=== PATIENT | male | born 1940 | race Caucasian/White ===

== ENCOUNTER 2022-10-22 05:07 | Observation (INO) ==
--- NOTE | 2022-09-20 09:21 | PAT Medication Instructions ---
Medication Instructions Date of Service September 20, 2022 Home Medications Medication Instructions Recorded Wheeled Walker #1 ea 07/30/22 Wheeled Walker #1 ea 07/30/22 cholecalciferol (vitamin D3) 25 mcg (1,000 unit) capsule (Vitamin D3) 1,000 unit PO QAM cyanocobalamin (vitamin B-12) 1,000 mcg tablet (Vitamin B-12) 1,000 mcg PO QAM fluticasone propionate 50 mcg/actuation nasal spray,suspension (Flonase Allergy Relief) 1 spray intranasal DAILY PRN SINUS CONGESTION lisinopril 20 mg-hydrochlorothiazide 12.5 mg tablet 1 tab PO QAM esomeprazole magnesium 40 mg capsule,delayed release 40 mg PO QAM buspirone 5 mg tablet 5 mg PO BID finasteride 5 mg tablet 5 mg PO QAM albuterol sulfate 90 mcg/actuation aerosol inhaler 90 mcg inhalation QID PRN sob candesartan 16 mg tablet 16 mg PO QAM hydroxyzine HCl 50 mg tablet 25 mg PO DAILY PRN Anxiety ibuprofen 200 mg tablet 200 mg PO Q6H PRN Pain indomethacin 50 mg capsule 50 mg PO BID PRN Headache lorazepam 0.5 mg tablet 0.5 mg PO HS mirtazapine 7.5 mg tablet 15 mg PO HS omeprazole 20 mg tablet,delayed release 20 mg PO QAM propranolol 10 mg tablet 10 mg PO BID tamsulosin 0.4 mg capsule 0.4 mg PO QAM trazodone 50 mg tablet 50 mg PO HS ASK your surgeon for instructions ibuprofen 200 mg tablet 200 mg PO Q6H PRN Pain indomethacin 50 mg capsule 50 mg PO BID PRN Headache DO NOT take the morning of surgery cholecalciferol (vitamin D3) 25 mcg (1,000 unit) capsule (Vitamin D3) 1,000 unit PO QAM cyanocobalamin (vitamin B-12) 1,000 mcg tablet (Vitamin B-12) 1,000 mcg PO QAM lisinopril 20 mg-hydrochlorothiazide 12.5 mg tablet 1 tab PO QAM candesartan 16 mg tablet 16 mg PO QAM hydroxyzine HCl 50 mg tablet 25 mg PO DAILY PRN Anxiety Take morning of surgery With a small sip of water, OTHERWISE NOTHING TO EAT OR DRINK AFTER MIDNIGHT: fluticasone propionate 50 mcg/actuation nasal spray,suspension (Flonase Allergy Relief) 1 spray intranasal DAILY PRN SINUS CONGESTION (if needed) esomeprazole magnesium 40 mg capsule,delayed release 40 mg PO QAM buspirone 5 mg tablet 5 mg PO BID finasteride 5 mg tablet 5 mg PO QAM albuterol sulfate 90 mcg/actuation aerosol inhaler 90 mcg inhalation QID PRN sob (use if needed; please bring with you to hospital day of surgery if possible) omeprazole 20 mg tablet,delayed release 20 mg PO QAM propranolol 10 mg tablet 10 mg PO BID tamsulosin 0.4 mg capsule 0.4 mg PO QAM Take evening before surgery fluticasone propionate 50 mcg/actuation nasal spray,suspension (Flonase Allergy Relief) 1 spray intranasal DAILY PRN SINUS CONGESTION (if needed) buspirone 5 mg tablet 5 mg PO BID albuterol sulfate 90 mcg/actuation aerosol inhaler 90 mcg inhalation QID PRN sob (if needed) hydroxyzine HCl 50 mg tablet 25 mg PO DAILY PRN Anxiety(if needed) lorazepam 0.5 mg tablet 0.5 mg PO HS mirtazapine 7.5 mg tablet 15 mg PO HS propranolol 10 mg tablet 10 mg PO BID trazodone 50 mg tablet 50 mg PO HS Other Notes If you have any questions please call us at [phone] or [phone] or [phone] or [phone]
--- NOTE | 2022-09-24 11:35 | Anesthesiology Consultation ---
Date of Service September 24, 2022 Assessment & Plan (1) Encounter for pre-operative examination: - awaiting 10/09 PCP pre-op evaluation. PCP optimization form completed for PCP review ahead of appt regarding abnormal CXR and mild end expiration wheezing throughout lung varma. - Outpatient joint assessment: Patient is currently scheduled for inpatient pathway. If re-evaluated pending system levels during current pandemic/surgeon requests outpatient pathway, patient is not acceptable candidate for outpatient joint program from anesthesia standpoint. Chart Review Chart Review: Pending: Refer to Additional Notes / Consult section and Patient seen in Pre Admission Testing Teaching & Discussion Pre-Anesthesia Teaching/Discussion Notes: Instructed NPO after midnight before surgery, except medications with 15 cc of water. Medication instructions provided according to the PAT guidelines. History Surgery Operation Date: 10/22/22 07:00 Proposed Procedures p Left Total Knee Arthroplasty - Pako Patterson MD Height/Weight Height: 5 ft 10 in Weight: 104.326 kg Allergies Allergy/AdvReac Type Severity Reaction Status Date / Time onabotulinumtoxinA Allergy Severe trouble Verified 09/18/22 13:26 [From Botox] swallowing/ headache azelastine Allergy Intermediate panic Verified 09/18/22 13:26 attack/ depression Medications Home Medications Medication Instructions Recorded Confirmed Last Taken cholecalciferol (vitamin D3) 25 1,000 unit PO QAM 05/12/18 09/18/22 06/25/22 18:00 mcg (1,000 unit) capsule (Vitamin D3) cyanocobalamin (vitamin B-12) 1,000 mcg PO QAM 05/12/18 09/18/22 06/25/22 18:00 1,000 mcg tablet (Vitamin B-12) fluticasone propionate 50 1 spray intranasal DAILY PRN SINUS 05/12/18 09/18/22 06/19/22 12:00 mcg/actuation nasal CONGESTION spray,suspension (Flonase Allergy Relief) lisinopril 20 1 tab PO QAM 05/12/18 09/18/22 06/25/22 06:00 mg-hydrochlorothiazide 12.5 mg tablet esomeprazole magnesium 40 mg 40 mg PO QAM 03/23/19 09/18/22 06/25/22 06:00 capsule,delayed release buspirone 5 mg tablet 5 mg PO BID 06/21/22 09/18/22 06/26/22 06:00 finasteride 5 mg tablet 5 mg PO QAM 06/21/22 09/18/22 06/25/22 06:00 Wheeled Walker #1 ea 07/30/22 07/30/22 Unknown Wheeled Walker #1 ea 07/30/22 07/30/22 Unknown albuterol sulfate 90 mcg/actuation 90 mcg inhalation QID PRN sob 09/18/22 09/18/22 Unknown aerosol inhaler candesartan 16 mg tablet 16 mg PO QAM 09/18/22 09/18/22 Unknown hydroxyzine HCl 50 mg tablet 25 mg PO DAILY PRN Anxiety 09/18/22 09/18/22 Unknown ibuprofen 200 mg tablet 200 mg PO Q6H PRN Pain 09/18/22 09/18/22 Unknown indomethacin 50 mg capsule 50 mg PO TID PRN Headache 09/18/22 09/24/22 Unknown lorazepam 0.5 mg tablet 0.5 mg PO HS 09/18/22 09/18/22 Unknown mirtazapine 7.5 mg tablet 15 mg PO HS 09/18/22 09/18/22 Unknown omeprazole 20 mg tablet,delayed 20 mg PO QAM 09/18/22 09/18/22 Unknown release propranolol 10 mg tablet 10 mg PO BID 09/18/22 09/18/22 Unknown tamsulosin 0.4 mg capsule 0.4 mg PO QAM 09/18/22 09/18/22 Unknown trazodone 50 mg tablet 50 mg PO HS 09/18/22 09/18/22 Unknown Past Medical History Medical History (Updated 09/24/22 @ 11:43 by Mary Lou Banks PA-C) Anxiety Asthma controlled, stable; last rescue inhaler use 2 days ago Attention deficit disorder (ADD) Barretts esophagus Follows with [facility] BPH (benign prostatic hyperplasia) Cervical stenosis of spinal canal Chronic neck pain Chronic tension type headache Dysphagia denies choking GERD (gastroesophageal reflux disease) controlled, stable per pt Hearing deficit hearing aids bilat Hepatic steatosis History of COVID-19 05/2021- NO SYMPTOMS History of kidney stones Hypertension controlled, stable per pt Lumbar spinal stenosis Migraine No longer on Botox treatment secondary to reaction Prediabetes Tinnitus Patient denies h/o stroke, seizures, heart attack, heart failure, blood clots or blood transfusions. Exercise / Class Metabolic Activity II 4-5 Yardwork/Stairs/Walk up hill (denies chest discomfort or shortness of breath with 1 FOS) Past Family History Family History Father Cancer Family hx of colon cancer Mother Cancer Sister Rheumatic fever with cardiac involvement Family history of diabetes mellitus Son Family hx of colon cancer Other No family history of adverse response to anesthesia Past Surgical History Surgical History H/O arthroscopy of shoulder RIGHT WITH BONE SPUR REMOVAL History of carpal tunnel release RIGHT History of colonoscopy with polypectomy History of cystoscopy History of esophagogastroduodenoscopy (EGD) History of lithotripsy S/P left knee arthroscopy S/P right knee arthroscopy Past Anesthesia History No Hx of Anesthesia Complications and No Family Hx of Anesthesia Complications History of PONV No Hx of PONV and No Hx of Motion Sickness Social History Smoking Status: Former smoker tobacco type: cigarettes Do You Dip or Chew Tobacco: No Smoking End Date: quit 1983 Hx Alcohol Use: Yes Alcohol type: beer alcohol intake frequency: a few times a month Hx Substance Use: No substance use type: does not use Review of Systems Occasional wheezing, chronic without change or worsening, resolves with albuterol inhaler. Patient denies chest pain, shortness of breath, dyspnea on exertion, fever, chills, cough or palpitations. Physical Exam Vital Signs Vitals BP 158/83 P 58 TEMP 97.4 SP02 96% on RA RESP 17 Physical Full cervical extension range of motion without pain TMD 3.5 finger breadths Mallampati Score 3 Dentition: full upper and lower dentures Lungs: normal respiratory effort. Good air movement, mild end expiratory wheezing throughout, no rales or rhonchi Cardiac: regular rate and rhythm, no murmurs noted Carotid arteries: negative bruit bilat Lab Results Anesthesia Preop Results Results Anesthesia Widget: WBC 11.57 K/ul (4.8-10.8) H 09/24/22 Hgb 17.1 g/dl (14.0-18.0) 09/24/22 Hct 47.8 % (42.0-52.0) 09/24/22 Plt 214 K/uL (130-400) 09/24/22 Na 139 mmol/L (136-145) 09/24/22 K 4.0 mmol/L (3.5-5.1) 09/24/22 Cl 105 mmol/L (98-107) 09/24/22 CO2 27 mmol/L (21-32) 09/24/22 BUN 19 mg/dl (6-23) 09/24/22 Creat 0.82 mg/dl (0.6-1.4) 09/24/22 Glucose Level 110 mg/dl (70-99(Fasting)) H 09/24/22 PT 11.2 Seconds (9.0-12.0) 09/24/22 PTT 25.9 Seconds (21.0-31.0) 09/24/22 INR 1.1 (0.9-1.1) 09/24/22 Blood Type A Positive 09/24/22 Antibody Screen NEGATIVE 09/24/22 Testing Electrocardiogram Date: 09/24/22 Sinus bradycardia, rate 59 bpm RBBB Chest X-Ray Date: 09/24/22 1. There is a focal 18 mm left perihilar density which has progressed. This favors a normal pulmonary vessel and overlapping ribs. However, a follow-up dedicated chest CT is recommended for confirmation. 2. This report was called/faxed to the referring physician following dictation. Echocardiogram Date: 06/02/18 EF 65-70% Normal LV wall motion Grade I diastolic dysfunction No significant valvular heart disease Mild cLVH Cervical Spine Date: 06/26/22 MRI 1. Multilevel discogenic degeneration and facet arthrosis as detailed above resulting in multilevel neural foraminal stenosis, mildly worsened from the 2018 exam. 2. Mild central canal stenosis at C5-C6. 3. No acute fracture. 4. Normal signal of the cervical spinal cord. Other Testing Lumbar spine MRI 06/26/22 1. Progressively worsened discogenic degeneration with associated spondylitic spurring and facet arthrosis as above. 2. Severe central canal stenosis redemonstrated at L2-L3, L3-L4 and L4-L5, worsened from the prior study. 3. Multilevel neural foraminal narrowing. 4. No acute fracture. COVID-19 Risk Screen Screening Information COVID-19 Screen Date: 09/24/22 Exposure 21 Days Family/Household +COVID Last 21 Days: No Exposure 10 Days Any COVID Exposure Last 10 Days: No Symptoms Last 10 Days Experienced COVID Sx Last 10 Days: No + COVID 0-90 Days COVID + in Last 0-90 Days: No
--- NOTE | 2022-10-20 11:01 | History and Physical Report ---
CHIEF COMPLAINT: Bilateral knee pain and discomfort, left side greater than the right. HISTORY OF PRESENT ILLNESS: The patient is an 81-year-old gentleman who presents to us now for surgi isaias treatment of his left knee. He has a long history of knee problems that we have been treating serafin mary for, for the past 4-5 years. We then put in shots/injections into his knee, which initially worked quite well for quite a long time. These shots have become less successful over time. He describes g lobal pain in both knees. The more he is up and on his legs the more they hurt. He limps more as day goes on. He has swelling. He has stiffness. He would like to have his knee fixed. Of note, the patient has a history of spinal stenosis with some thigh discomfort. He would like to g et his knees fixed before he undergoes any spine surgery. PAST MEDICAL HISTORY: 1. Hypertension. 2. Anxiety/depression. 3. Hiatal hernia. 4. Moderate obesity with BMI of 34. 5. Low back pain/sciatica. 6. Kidney stones. PAST SURGICAL HISTORY: Includes: 1. Shoulder surgery. 2. Bilateral knee scopes. 3. Cataract surgery. ALLERGIES: BOTOX. CURRENT MEDICATIONS: Include: 1. BuSpar. 2. Atacand. 3. Lisinopril/hydrochlorothiazide. 4. Trazodone. 5. Hydroxyzine. 6. Lioresal. 7. Meclizine. 8. Flomax. 9. Catapres. 10. Mirtazapine. 11. Indomethacin 12. Rhinocort nasal spray. 13. Omeprazole. SOCIAL HISTORY: An 81-year-old male. He is . Does not smoke. FAMILY HISTORY: Noncontributory. REVIEW OF SYSTEMS: Negative for diabetes. He is moderately obese. No chest pain or shortness of br eath. No bleeding problems. No history of DVT or PE. PHYSICAL EXAM: GENERAL: Shows a pleasant middle-aged male. Looks to be in pretty good health. HEENT: Benign. NECK: Supple. No lymphadenopathy. LUNGS: Clear to auscultation. HEART: Regular rate and rhythm. ABDOMEN: Soft, nontender, nondistended. EXTREMITIES: Grossly neurovascularly intact except as follows: Examination of the left knee reveals the patient ambulates independently. He has got varus alignment to his knee. He is tender over the medial joint line. Small to moderate-sized knee effusion. Rang e of motion about 5 degrees short of full extension to 120 degrees of flexion. There is no instabili ty. No pain with hip motion. X-RAYS: X-rays of the left knee were reviewed. It shows advanced left knee DJD. He has got complet e loss of his medial joint space. He does have tricompartment disease. A little bit of patella baja . Some loose bodies posteriorly. ASSESSMENT: 1. An 81-year-old male with advanced bilateral knee degenerative joint disease, left side more sympt omatic than right. He has failed conservative treatment and would like to have his left knee replace d. 2. Spinal stenosis. PLAN: We discussed treatment options. He would like to have his knee replaced. We will proceed with left knee replacement. The risks and benefits of this procedure were explained to the patient and i nclude but not limited to DVT, PE, , infection, neurological injury, vascular injury, bleeding p roblem, pain, limited range of motion, stiffness, failure to relieve symptoms, incomplete relief of s ymptoms, need for further surgery in the future, etc. The patient understands and desires to proceed . Informed consent was obtained. As far as discharge plans, he is considering going to [facility] first being discharged to home with h is 's assistance. He is trying to weigh these options. Currently, we will make a decision after surgery. He has seen his primary care doctor at [facility] and had been cleared for surgery. He had an abnorma l chest x-ray, but the CT shows no concerns. Job ID: [id number]
[2022-10-22] MEDS ORDERED: ACETAMINOPHEN 500 MG TAB PO SCH (06:00)
[2022-10-22] MEDS ORDERED: FAMOTIDINE 20 MG TAB PO SCH (06:00)
[2022-10-22] MEDS ORDERED: TRANEXAMIC ACID 1,000 MG **IV Intra-op IV SCH (06:00)
[2022-10-22] MEDS ORDERED: METOCLOPRAMIDE HCL 10 MG TABLET PO SCH (06:00)
[2022-10-22] MEDS ORDERED: ceFAZolin 2000MG 2,000 MG/15 ML SYR IV SCH (06:00)
[2022-10-22] MEDS ORDERED: LR 60ML/HR IV SCH (06:00)
[2022-10-22] MEDS ORDERED: BUPIVACAINE LIPOSOME/PF 266 MG, BUPIVACAINE/EPINEPHRINE 50 ML, SODIUM CHLORIDE 0.9% 30 ... INFIL SCH (06:00)
[2022-10-22] MEDS ORDERED: CeleBREX 200 MG CAP PO SCH (06:00)
[2022-10-22] MEDS ORDERED: LR 500ML BOLUS, THEN 15ML/HR IV SCH (06:00)
[2022-10-22] MEDS ORDERED: BUPIVACAINE 0.5 % 5 MG/1 ML PF 10ML VIAL ONE (06:26)
[2022-10-22] MEDS ORDERED: ROPIVACAINE 0.5% 5 MG/ML 30 ML VIAL ONE (06:27)
[2022-10-22] MEDS ORDERED: MIDAZOLAM HCL 1 MG/ML 2ML VIAL ONE (06:43)
[2022-10-22] MEDS ORDERED: ONDANSETRON INJ 2 MG/ML 2 ML VIAL IV PRN ×2 (06:44→10:44)
[2022-10-22] MEDS ORDERED: ATROPINE SULFATE 0.1 MG/ML 10ML SYR IV PRN (06:44)
[2022-10-22] MEDS ORDERED: ePHEDrine sulfate 50 MG/ML AMP IV PRN (06:44)
[2022-10-22] MEDS ORDERED: HYDROmorphone INJ 2 MG/ML SYR/VIAL IV PRN (06:44)
--- NOTE | 2022-10-22 06:45 | History & Physical Bridge Note ---
Date of Service October 22, 2022 History & Physical Bridge Note I have examined the patient, reviewed the History & Physical and in the interval since the performance of the History & Physical I have noted the following changes of clinical significance: no changes noted
[2022-10-22] MEDS ORDERED: BUPIVACAINE LIPOSOME 1.3% 266 MG/20 ML VIAL ONE (06:48)
[2022-10-22] MEDS ORDERED: SODIUM CHLORIDE 0.9% PF 50 ML VIAL ONE (06:48)
[2022-10-22] MEDS ORDERED: BUPIVACAINE/EPINEPHRINE 0.25% 1:200,000 30 ML VIAL ONE ×2 (06:48)
[2022-10-22] MEDS ORDERED: PROPOFOL IV EMULSION 10 MG/ML 20 ML VIAL IV ONE (07:07)
[2022-10-22] MEDS ORDERED: fentaNYL citrate 100 MCG/2 ML VIAL ONE ×2 (07:07→07:26)
[2022-10-22] MEDS ORDERED: DEXAMETHASONE SOD INJ 4 MG/ML VIAL ONE (07:11)
[2022-10-22] MEDS ORDERED: ONDANSETRON INJ 2 MG/ML 2 ML VIAL ONE (07:11)
[2022-10-22] MEDS ORDERED: GLYCOPYRROLATE 0.2 MG/ML VIAL ONE (07:12)
--- NOTE | 2022-10-22 08:57 | Operative Report ---
PG Post Operative Report Pre & Post Diagnosis Operation Date: 10/22/22 07:00 Pre-Op Diagnosis: Degenerative Joint Disease Knee Left Post-Op Diagnosis: Degenerative Joint Disease Knee Left I identified the patient and participated in the time-out.: Yes Procedure Operation Date: 10/22/22 07:00 Actual Procedures p Left Total Knee Arthroplasty(Left) - Pako Patterson MD Surgeon Pako Patterson MD Lighting Fixtures Decorator Jewel Gill PA-C Estimated Blood Loss 50 Findings Consistent with Post-Op Diagnosis Operative findings revealed advanced left knee DJD. Extensive grade 4 [id number] disease in the medial compartment. Some spotty grade 4 changes in the patellofemoral and lateral compartment. He had a fixed varus deformity to his knee and about a 10 degree fixed flexion contracture. Moderate-sized joint effusion. Specimens Left knee sent for pathology Drains None Anesthesia Type General Regional Complications none Disposition Accompanied Patient To Recovery: No Indications Patient is an 81-year-old gentleman has had a long history of knee problems and arthritis. He has been treated conservatively over the years which became less successful. He was started really hinder his lifestyle. X-rays show bilateral knee arthritis. He elected proceed with left total knee arthroplasty. Does have a history of knee arthroscopy on the side in the past. Description of Procedure Operative implants consist of: 1 Biomet Vanguard size 70 left posterior stabilized femoral component. 2. Biomet size 79 tibial tray. 3. 10 mm posterior stabilized polyethylene insert. 4. 31 x 8 all poly patella. The patient was taken the operating, identified, and placed on the operating table supine position. All contact areas were appropriately padded. IV antibiotics tried by anesthesia team. They attempted a spinal in the holding area but were unsuccessful. A general anesthetic was then implemented. A left thigh tent was then placed in the left lower extremities then prepped and draped in usual sterile fashion. The left leg was elevated exsanguinated with use of an Esmarch and the tourniquet was placed at 300 mmHg. An anterior approach the left knee was then performed through a longitudinal incision centered over the patella. Sharp dissection was got through subcutaneous tissues down the extensor mechanism. A medial parapatellar arthrotomy incision was made. Some subperiosteal dissection was carried out medially. The fat pad was dissected from Neath patella tendon. Lateral patellofemoral ligament was released. Patella subluxated laterally and the knee was flexed. The osteophytes taken off distal femur. The ACL and PCL were then released from distal femur the tibia subluxated anteriorly. The external tibial alignment jig was then placed in the interface of the tibia and adjusted 14 mm medially. Proximal tibial cut was made to remove about a millimeter bone from most deficient aspect medial tibial plateau. Of note, we did place a towel clip on the patella tendon insertion as there did did have a tendency to when it started to peel. We placed this before any signs of any significant peeling from the tubercle. The tibia was then sized to a size 79. Some osteophytes taken off medial and posterior medially. Attention drawn the femur. The distal femur was then with a sharp drop with intramedullary canal was suction. A left 6 degree valgus cutting guide was placed. Distal femoral cutting block was pinned in place. Distal femoral cut was made to take an additional 3 mm bone off distal femur. The femur was then sized to a size 70. Sized exactly to a 70. The AP cutting block was pinned parallel to the epicondylar axis which was 5 degrees of external rotation. Anterior cut, anterior chamfer, posterior cut, posterior chamfer cuts were made. The box cutting guide was placed in just slight lateral and the box cut was made. The knee was flexed. The remnants of the medial and lateral menisci were excised. The osteophytes were taken off the posterior aspect of the femur. A trial femoral component was placed. The tibial tray was pinned in maximum external rotation and the drill and stem punch were used to create defect in proximal tibia for the tibial tray. Knee was then trialed and 10 mm insert fit most appropriately. Attention drawn the patella. The patella was cleaned of all soft tissues. Patella thickness measured 25 mm in thickness was cut down to 15. Was sized to a size 31 patella. The lug holes were drilled for the 31 patella. The lateral osteophyte was made. Patella button was placed. Knee was taken through range of motion patella tracked nicely with no thumbs test. Attention drawn to placing permanent components. All trial components were removed. Bone plug was placed in the distal femur limit blood loss. Double batch Palacos G cement was mixed. BiomBestcake size 70 left posterior stabilized femoral component, size 75 tibial tray, a size 10 mm posterior stabilized insert, 31 x 8 all poly patella were then cemented in place. Knee was brought out into full extension until cement hardened. Final cement check was then performed. The pericapsular tissues were injected with total of 100 cc of combination of 20 cc of Exparel, 30 cc normal saline, 50 cc of quarter percent Marcaine with epinephrine. The patient did receive 1 g tranexamic acid. The tourniquet was then let down for final tourniquet time of 62 minutes. Hemostasis reduced electrocautery. Extensor mechanism closed with combination 1 PDS suture and #1 Vicryl suture in a [id number] fashion. Extensor mechanism checked found to be intact the subcutaneous tissue then closed with 2 Dexon suture in a buried interrupted fashion skin was closed with skin shaina. Leg was then cleaned and dried and sterile dressed with Xeroform, 4 fours, sterile cast padding, Zacarias bandage were applied. Patient then brought out of general anesthesia and transferred to the recovery room in stable condition. Patient tolerated procedure well and there were no complications. Jewel Gill, my physician financial administrative assistant, was present for the entire procedure. His assistance was essential and required for appropriate patient positioning, prepping and draping, surgical exposure, performing the technical details of the operation, placement the implants, closure of the wound, and placement of the sterile bandage. I attest to the content of the Intraoperative Record and any orders documented therein. Any exceptions are noted below.
[2022-10-22] MEDS: fentaNYL citrate 100 MCG/2 ML VIAL IV PRN ×2 (09:10→09:15)
[2022-10-22] MEDS ORDERED: PROMETHAZINE HCL 6.25 MG in SODIUM CHLORIDE 0.9% 50 ML IV PRN (09:14)
[2022-10-22] MEDS ORDERED: PROMETHAZINE HCL INJ 25 MG/ML 1 ML VIAL ONE (09:16)
[2022-10-22] MEDS ORDERED: SODIUM CHLORIDE 0.9% 50 ML BAG ONE (09:19)
--- NOTE | 2022-10-22 09:35 | XRay Report ---
XR knee LT 1 or 2V routine CLINICAL HISTORY: Surgical Post Op TECHNIQUE: 2 views of the left knee were obtained. Comparison: Comparison is made to knee radiograph 07/09/2022 FINDINGS: Patient is status post total knee arthroplasty with expected postsurgical changes including soft tiss ue swelling and subcutaneous emphysema. No periarticular lucency or hardware fracture is seen. IMPRESSION: Expected postoperative appearance status post placement of total knee arthroplasty. ACT 112: Negative or not required by law. Electronically signed by: Garrett Weber M.D. 10/22/2022 9:33 AM
[2022-10-22] MEDS ORDERED: ALBUT/IPRATROP 3MG/0.5MG NEB 3 ML VIAL NEB STA (09:48)
--- NOTE | 2022-10-22 10:01 | Anesthesiology Progress Note ---
Date of Service October 22, 2022 Anesthesia Post Procedure Vital Signs Vital Signs: Temp Pulse Pulse Resp BP Pulse Ox O2 Del Method 10/22/22 09:55 92 H 18 95 Nasal Cannula 10/22/22 09:50 91 H 17 138/94 94 Nasal Cannula 10/22/22 09:40 91 H 16 150/102 H 92 Nasal Cannula 10/22/22 09:30 93 H 15 160/101 H 93 Nasal Cannula 10/22/22 09:20 90 14 163/105 H 94 Oxymask 10/22/22 09:10 89 17 170/90 H 94 Oxymask 10/22/22 09:00 89 19 135/60 93 Oxymask 10/22/22 08:56 36.4 C L 93 H 14 144/84 H 93 Oxymask 10/22/22 05:44 36.8 C 83 18 177/94 H 94 Room Air 10/22/22 05:44 Room Air O2 Flow Rate 10/22/22 09:55 2 10/22/22 09:50 2 10/22/22 09:40 2 10/22/22 09:30 2 10/22/22 09:20 5 10/22/22 09:10 5 10/22/22 09:00 5 10/22/22 08:56 5 10/22/22 05:44 10/22/22 05:44 Pain Intensity Left Knee: Pain Intensity: 4 Transfer of Care Handoff Completed per policy Notes Mental Status: alert / awake / arousable and participated in evaluation Patient Amnestic to Procedure: Yes Nausea / Vomiting: adequately controlled Pain: adequately controlled Airway Patency, RR, SpO2: stable & adequate BP & HR: stable & adequate Hydration State: stable & adequate Anesthetic Complications: no major complications apparent and Pt Satisfied with anesthetic care
[2022-10-22] MEDS ORDERED: DOCUSATE SODIUM/SENNA 50/8.6MG TAB PO SCH (10:44)
[2022-10-22] MEDS ORDERED: GLUCOSE 10 TAB/TUBE PO PRN (10:44)
[2022-10-22] MEDS ORDERED: CARBOHYDRATES FOR HYPOGLYCEMIA PO PRN (10:44)
[2022-10-22] MEDS ORDERED: PANTOprazole 40 MG TAB PO SCH (10:44)
[2022-10-22] MEDS ORDERED: ALBUTEROL HFA 8 GM INHALER INH PRN (10:44)
[2022-10-22] MEDS ORDERED: FLUTICASONE PROPIONATE NA SPR 16 GM BTL NAE PRN (10:44)
[2022-10-22] MEDS ORDERED: CANDESARTAN 16 MG PO SCH (10:44)
[2022-10-22] MEDS ORDERED: GLUCAGON FOR INJ 1 MG VIAL SQ PRN (10:44)
[2022-10-22] MEDS ORDERED: GLUCOSE 40% GEL 15 GM TUBE PO PRN (10:44)
[2022-10-22] MEDS ORDERED: LISINOPRIL/HCTZ 20/12.5MG 1 TAB TAB PO SCH (10:44)
[2022-10-22] MEDS ORDERED: HYDROmorphone INJ 0.5 MG/0.5 ML SYR IV PRN (10:44)
[2022-10-22] MEDS ORDERED: DEXTROSE 50% 50 ML SYRINGE IV PRN (10:44)
[2022-10-22] MEDS ORDERED: hydrOXYzine HCl 25 MG TAB PO PRN (10:44)
[2022-10-22] MEDS ORDERED: bisacodyL 10 MG SUPP PR PRN (10:44)
[2022-10-22] MEDS ORDERED: oxyCODONE HCL IR 5 MG TAB (IMMEDIATE RELEASE) PO PRN (10:44)
[2022-10-22] MEDS ORDERED: METOCLOPRAMIDE HCL INJ 5 MG/ML 2 ML VIAL IV PRN (10:44)
[2022-10-22] MEDS ORDERED: ALUMINUM/MAGNESIUM SUSP 30 ML UDC PO PRN (10:44)
[2022-10-22] MEDS ORDERED: PHARMACY GLYCEMIC MGMT CONSULT PRN (10:44)
[2022-10-22] MEDS ORDERED: NALOXONE HCL 0.4 MG/1 ML VIAL/CARP IV PRN (10:44)
--- NOTE | 2022-10-22 12:45 | Pharmacy Report ---
Pharmacy Glycemic Short Note 2 - Date of Service October 22, 2022 - Glycemic Short BSG Results (Last 24 hours): 10/22/22 12:11 POC Glucose 155 H OUTPATIENT ANTIDIABETIC REGIMEN: * n/a HbA1c: 5.7% (05/28/22) ASSESSMENT: * HC is an 81 year old male POD #0 s/p left total knee arthroplasty * Received 8 mg IV dexamethasone in OR, 10 mg IV x 1 ordered for tomorrow morning * Patient is prediabetic as an outpatient with an A1c of 5.7% on no medications * BSG not obtained preoperatively, postop BSG of 155 mg/dL (likely steroid- induced) * Given patient is insulin naive and only prediabetic, will hold off on basal insulin at this time and utilize conservative Novolog only PLAN FOR INPATIENT GLYCEMIC CONTROL: * Basal insulin * hold * Bolus insulin * NovoLog per scale ACHS or Q6hrs while NPO * Goal Range: Low 110 mg/dL - High 140 mg/dL * Correction Factor: 35 mg/dL/unit * Nutritional / Prandial insulin per carb ratio of 1 unit per 12 grams CHO consumed
[2022-10-22] MEDS: FINASTERIDE 5 MG TAB PO SCH (13:55)
[2022-10-22] MEDS: CYANOCOBALAMIN (B-12) 500 MCG TABLET PO SCH (13:56)
[2022-10-22] MEDS: MULTIVITAMIN TAB PO SCH (13:56)
[2022-10-22] MEDS: busPIRone 5 MG TAB PO SCH ×2 (13:56→19:59)
[2022-10-22] MEDS: PROPRANOLOL HCL 10 MG TAB PO SCH ×2 (13:56→20:00)
[2022-10-22] MEDS: TAMSULOSIN HCL 0.4 MG CAP PO SCH (13:56)
[2022-10-22] MEDS: CHOLECALCIFEROL 1,000 UNITS 25 MCG TAB PO SCH (13:57)
[2022-10-22] MEDS: ACETAMINOPHEN 500 MG TAB PO SCH ×2 (13:57→22:06)
[2022-10-22] MEDS: KETOROLAC TROMETHAMINE 15 MG/ML VIAL IV SCH ×2 (13:57→17:17)
[2022-10-22] MEDS: DOCUSATE SODIUM 100 MG CAP PO SCH ×2 (13:58→19:58)
[2022-10-22] MEDS: INSULIN ASPART PER UNIT SC SCH ×3 (14:02→22:13)
[2022-10-22] MEDS: SODIUM CHLORIDE 0.9% 1000ML 1,000 ML IV SCH ×2 (14:21→22:37)
[2022-10-22] MEDS: ceFAZolin 2000MG 2,000 MG/15 ML SYR IV SCH ×2 (14:38→22:05)
[2022-10-22] MEDS ORDERED: TRANEXAMIC ACID / 0.7% NACL 1,000 MG/100 ML BAG IV SCH (15:00)
[2022-10-22] MEDS: traZODone HCL 50 MG TAB PO SCH (20:00)
[2022-10-22] MEDS: SENNA 8.6 MG TAB PO SCH (20:00)
[2022-10-22] MEDS: LORazepam 0.5 MG TAB PO SCH (22:05)
[2022-10-22] MEDS: ASPIRIN 81 MG ECTAB PO SCH (22:05)
[2022-10-22] MEDS: MIRTAZAPINE TAB 15 MG TAB PO SCH (22:05)
[2022-10-23] MEDS: KETOROLAC TROMETHAMINE 15 MG/ML VIAL IV SCH ×4 (00:23→17:55)
[2022-10-23] MEDS ORDERED: Nursing to Pharmacy Communication SCH (01:00)
[2022-10-23] MEDS: PROPRANOLOL HCL 10 MG TAB PO SCH ×2 (05:58→13:58)
[2022-10-23] MEDS: busPIRone 5 MG TAB PO SCH ×2 (05:58→13:58)
[2022-10-23] MEDS: ACETAMINOPHEN 500 MG TAB PO SCH ×3 (05:58→21:15)
[2022-10-23] MEDS: PANTOprazole 40 MG TAB PO SCH (05:59)
[2022-10-23] MEDS: LISINOPRIL/HCTZ 20/12.5MG 1 TAB TAB PO SCH (06:00)
[2022-10-23 06:22] LABS: Hematocrit (blood only) 38.7 % (42.0-52.0); Hemoglobin 13.4 g/dl (14.0-18.0); Mean Corpuscular Hemoglobin 31.7 pg (25.0-34.0); Mean Corpuscular Hgb Conc 34.6 g/dL (32.0-36.0); Mean Corpuscular Volume 91.5 fL (80.0-100.0); Platelet Count 212 K/uL (130-400); RDW Coefficient of Variation 12.5 % (11.5-14.5); RDW Standard Deviation 41.6 fL (36.4-46.3); Red Blood Count 4.23 M/uL (4.70-6.10); White Blood Count 15.05 K/ul (4.8-10.8)
[2022-10-23 06:35] LABS: Calcium 8.5 mg/dl (8.5-10.1); Creatinine Clr Calc Pharmacy 74.3 ml/min; Est GFR (African American) 85.6 ml/min; Est GFR (Non-African American) 73.8 ml/min
[2022-10-23] MEDS ORDERED: dexAMETHasone 10 MG in SYRINGE 0 ML IV SCH (08:00)
[2022-10-23] MEDS: CHOLECALCIFEROL 1,000 UNITS 25 MCG TAB PO SCH (08:12)
[2022-10-23] MEDS: DOCUSATE SODIUM 100 MG CAP PO SCH ×2 (08:13→21:14)
[2022-10-23] MEDS: CYANOCOBALAMIN (B-12) 500 MCG TABLET PO SCH (08:13)
[2022-10-23] MEDS: MULTIVITAMIN TAB PO SCH (08:13)
[2022-10-23] MEDS: FINASTERIDE 5 MG TAB PO SCH (08:13)
[2022-10-23] MEDS: ASPIRIN 81 MG ECTAB PO SCH ×2 (08:13→21:16)
[2022-10-23] MEDS: TAMSULOSIN HCL 0.4 MG CAP PO SCH (08:13)
[2022-10-23] MEDS: INSULIN ASPART PER UNIT SC SCH ×4 (08:53→21:14)
--- NOTE | 2022-10-23 11:36 | Progress Notes ---
DATE OF SERVICE: 10/23/2022. SUBJECTIVE: An 81-year-old gentleman postoperative day 1 from a left knee replacement. He is doing okay. Pain has been reasonably well controlled. No chest pain or shortness of breath. Not feeling dizzy or lightheaded. OBJECTIVE: VITAL SIGNS: Temperature is 36.3. Vital signs are stable. GENERAL: Shows a pleasant middle-aged male. He was just working with a therapist when I visited him today. LUNGS: Clear to auscultation. HEART: Regular rate and rhythm. ABDOMEN: Soft, nontender, nondistended. EXTREMITIES: Grossly neurovascularly intact except as follows. Examination of the left leg reveals the dressing to be clean, dry and intact. He can dorsiflex and p lantarflex his foot appropriately. He can do a straight leg raise with quite a bit of effort. He is neurologically intact. LABORATORY DATA: Hemoglobin 13.4. Hematocrit 38.7. White cell count 15.05. Electrolytes are stabl e. ASSESSMENT: An 81-year-old gentleman, postoperative day 1 from a left knee replacement, doing pretty well. Pain is controlled. He is neurologically intact. He is looking to go to rehabilitation. PLAN: 1. DVT prophylaxis includes thigh-high TEDs, SCDs, and aspirin twice a day. 2. PT/OT, weightbear as tolerated. Left total knee protocol. 3. Pain control, doing okay with current pain regimen. 4. Disposition: He is hoping to be discharged to rehabilitation. We will get hospital social worker rimma rowley on that today. Job ID: [id number]
[2022-10-23] MEDS: MAGNESIUM HYDROXIDE SUSP 30 ML UDC PO PRN (12:28)
--- NOTE | 2022-10-23 14:11 | Pharmacy Report ---
Pharmacy Glycemic Short Note 2 - Date of Service October 23, 2022 - Glycemic Short BSG Results (Last 24 hours): 10/22/22 10/22/22 10/23/22 17:21 20:31 05:50 Glucose 130 H POC Glucose 136 H 133 H 10/23/22 10/23/22 07:46 11:45 Glucose POC Glucose 143 H 180 H OUTPATIENT ANTIDIABETIC REGIMEN: * n/a HbA1c: 5.7% (05/28/22) ASSESSMENT: 10/23/22: * BSGs reasonably controlled yesterday without insulin (patient refused insulin admin yesterday and this morning) * BSG of 180 mg/dl at lunch (likely related to IV dexamethasone), RN discussed with patient and he is now willing to take Novolog * Will stick with bolus insulin only for now and can likely d/c insulin tomorrow, as steroids have been discontinued 10/22/22: * HC is an 81 year old male POD #0 s/p left total knee arthroplasty * Received 8 mg IV dexamethasone in OR, 10 mg IV x 1 ordered for tomorrow morning * Patient is prediabetic as an outpatient with an A1c of 5.7% on no medications * BSG not obtained preoperatively, postop BSG of 155 mg/dL (likely steroid- induced) * Given patient is insulin naive and only prediabetic, will hold off on basal insulin at this time and utilize conservative Novolog only PLAN FOR INPATIENT GLYCEMIC CONTROL: * Basal insulin * hold * Bolus insulin * NovoLog per scale ACHS or Q6hrs while NPO * Goal Range: Low 110 mg/dL - High 140 mg/dL * Correction Factor: 35 mg/dL/unit * Nutritional / Prandial insulin per carb ratio of 1 unit per 12 grams CHO consumed
[2022-10-23] MEDS: LORazepam 0.5 MG TAB PO SCH (21:14)
[2022-10-23] MEDS: traZODone HCL 50 MG TAB PO SCH (21:15)
[2022-10-23] MEDS: SENNA 8.6 MG TAB PO SCH (21:16)
[2022-10-23] MEDS: MIRTAZAPINE TAB 15 MG TAB PO SCH (21:17)
[2022-10-24] MEDS: KETOROLAC TROMETHAMINE 15 MG/ML VIAL IV SCH ×2 (00:39→05:45)
[2022-10-24] MEDS: ACETAMINOPHEN 500 MG TAB PO SCH (05:46)
[2022-10-24] MEDS: PROPRANOLOL HCL 10 MG TAB PO SCH (05:46)
[2022-10-24] MEDS: busPIRone 5 MG TAB PO SCH (05:47)
[2022-10-24] MEDS: PANTOprazole 40 MG TAB PO SCH (05:47)
[2022-10-24] MEDS: LISINOPRIL/HCTZ 20/12.5MG 1 TAB TAB PO SCH (05:47)
[2022-10-24] MEDS: DOCUSATE SODIUM 100 MG CAP PO SCH (07:56)
[2022-10-24] MEDS: CYANOCOBALAMIN (B-12) 500 MCG TABLET PO SCH (07:56)
[2022-10-24] MEDS: TAMSULOSIN HCL 0.4 MG CAP PO SCH (07:56)
[2022-10-24] MEDS: FINASTERIDE 5 MG TAB PO SCH (07:57)
[2022-10-24] MEDS: CHOLECALCIFEROL 1,000 UNITS 25 MCG TAB PO SCH (07:57)
[2022-10-24] MEDS: ASPIRIN 81 MG ECTAB PO SCH (07:57)
[2022-10-24] MEDS: MULTIVITAMIN TAB PO SCH (07:57)
[2022-10-24] MEDS: INSULIN ASPART PER UNIT SC SCH ×2 (08:46→12:31)
[2022-10-24] MEDS: MAGNESIUM HYDROXIDE SUSP 30 ML UDC PO PRN (09:50)
--- NOTE | 2022-10-24 11:15 | Progress Notes ---
DATE OF SERVICE: 10/24/2022 SUBJECTIVE: An 81-year-old gentleman, postoperative day 2 from a left knee replacement. He is doing pretty well. Pain is controlled. Therapy is going okay. No chest pain or shortness of breath. OBJECTIVE: VITAL SIGNS: Temperature 36.4. Vital signs are stable. GENERAL: Shows a pleasant, elderly male. He is sitting up in bed, looks reasonably comfortable. EXTREMITIES: Examination of the left leg reveals the dressing to be in place. Just a little bit of bloody drainage. Leg is well aligned. He can dorsiflex and plantarflex his foot appropriately. He is neurologically intact. ASSESSMENT: An 81-year-old gentleman, postoperative day 2 from a left knee replacement, doing pretty well. His pain is reasonably well controlled. He is hoping to go to rehabilitation. PLAN: 1. DVT prophylaxis includes thigh-high TEDs, SCDs, and aspirin twice a day. 2. PT/OT, weightbear as tolerated. Left total knee protocol. 3. Pain control, doing okay with current pain regimen. 4. Disposition: Plan to discharge to [facility] if bed available and accepted. Job ID: [id number]
--- NOTE | 2022-10-28 06:13 | Discharge Summary ---
Date of Service October 28, 2022 Discharge Data Procedures Performed Operation Date: 10/22/22 07:00 Actual Procedures p Left Total Knee Arthroplasty(Left) - Pako Patterson MD Hospital Course (1) Status post total left knee replacement: This is a 81 year old patient admitted on 10/22/22 and underwent total knee arthroplasty. He tolerated the procedure well and there were no complications. Transferred to the PACU post op and later to the orthopedic floor for further care. He was given ancef for antibiotic prophylaxis. He was also given DANA stockings, SCDs, and aspirin for DVT prophylaxis. Hemoglobin, hematocrit, and vital signs were monitored during his hospital stay and remained stable. Did not require any blood transfusions. There were no complications during his hospital stay. By post op day #2 the patient was tolerating a diabetic diet, pain was reasonably controlled with oral pain medicine, and he was participating in physical therapy. On post op day #2 the patient was discharged to a rehab facility. He was given printed discharge instructions including prescriptions for extra strength tylenol, aspirin, cefadroxil, ketorolac, zofran, senokot, and oxycodone. Continue physical therapy, weight bearing as tolerated. Continue DANA stockings. Follow up approximately 2 weeks post op or sooner if there are problems or concerns. Coding Level of Care Code None Diagnoses Status post total left knee replacement Z96.652
== END 2022-10-24 13:08 ==
LOC: ASU 05:07 → 3E 05:07

== ENCOUNTER 2023-12-07 22:11 | Observation (INO) ==
--- OUTSIDE RECORDS SUMMARY | 2023-12-07 22:20 | External Medical Summary | Summary of Care ---
Author Name Unknown Organization [facility] Address [address] [place] [address] Phone [phone] Care Team Providers Care Timber Poisoner Name Role Phone Henrik Campbell DO Primary Care Provider Reason for Visit * Reason Onset Date Comments Home Health 12/06/2023 Encounter Details Date Type Department Care Team (Late st Contact Info) Description 12/06/2023 Telephone Family Practice [facility] [address] [place] [address] Henrik Campbell DO [address] [place] [address] Home Health Allergies Active Allergy Reactions Criticality Noted Date Comments Azelastine Unknown 02/01/2021 Onabotulinumtoxina Other (Please comment) High 01/20/2021 Swallowing difficulty after injection documented as of this encounter (statuses as of 12/06/2023) Medications Medication Sig Dispensed Refills Start Date End Date Status VITAMIN B-12 100 MCG PO TABS Take 1 Tablet by mouth daily with dinner. 0 Active VITAMIN D 1000 UNITS PO CAPS Take 1 Capsule by mouth daily with dinner. 0 Active albuterol (PROAIR HFA) 108 (90 BASE) MCG/ACT inhaler Inhale 2 Puffs by mouth every 4 hours as needed for Cough or Wheezing. With spacer 1 Inhaler 1 07/30/2018 Active Sildenafil Citrate 100 MG Oral Tablet TAKE ONE TABLET BY MOUTH NEEDED FOR ED 0 09/14/2020 Active Meclizine HCl 25 MG Oral Tablet (Antivert)Indication s:Hospital discharge follow-up,Nausea Take 1 Tablet by mouth 3 times a day as needed for Dizziness. 60 Tablet 1 09/04/2021 Active Esomeprazole Magnesium 20 MG Oral Capsule Delayed Release (NexIUM) Take by mouth 1 Capsule daily before breakfast . 90 Capsule 3 10/12/2021 Active Additional Information Patient taking differently: 40 mgOral BEFORE BREAKFAST, Reported on 11/08/2022 Budesonide 32 MCG/ACT Nasal Suspension Administer 1 [place] into nostril in the morning. 0 Active Metaxalone 800 MG Oral Tablet Take one tablet by mouth at bedtime and 1/2 to one tablet up to an additional two times daily as needed for neck and head pain 90 Tablet 11 12/14/2022 Active Rimegepant Sulfate 75 MG Oral Tablet Disintegrating 75 mg. 0 05/14/2023 Active Propranolol HCl 10 MG Oral Tablet (Inderal) Take 1.5 tablet at 6 am and 1.5 tablet at 2 pm daily 90 Tablet 5 07/03/2023 Active buPROPion HCl 100 MG Oral Tablet (Wellbutrin) Take 0.5 Tablets by mouth in the morning and 0.5 Tablets before bedtime. 30 Tablet 5 07/03/2023 Active LORazepam 0.5 MG Oral Tablet (Ativan) Take 0.5 Tablets by mouth every night at bedtime. NO EARLY REFILLS 15 Tablet 5 07/03/2023 Active hydrOXYzine HCl 25 MG Oral Tablet Take 1 Tablet by mouth daily as needed for Anxiety. 0 07/03/2023 Active Finasteride 5 MG Oral Tablet (Proscar)Indications :BPH with obstruction/lower urinary tract symptoms Take 1 Tablet by mouth in the morning. 90 Tablet 3 09/05/2023 Active Lisinopril-hydroCHLO ROthiazide 20-12.5 MG Oral Tablet TAKE 1 TABLET BY MOUTH ONCE DAILY 90 Tablet 1 11/02/2023 Active Tamsulosin HCl 0.4 MG Oral Capsule (Flomax)Indications: BPH with obstruction/lower urinary tract symptoms TAKE ONE CAPSULE BY MOUTH IN THE MORNING 90 Capsule 3 11/05/2023 Active Triamcinolone Acetonide 0.1 % External Ointment (Aristocort)Indicati ons:Other atopic dermatitis Apply topically to affected area 2 times a day. To affected area. 454 g 3 11/11/2023 Active Indomethacin ER 75 MG Oral Capsule Extended Release (Indocin SR) Take 1 Capsule by mouth in the morning. 30 Capsule 5 11/11/2023 Active Mirtazapine 15 MG Oral Tablet (Remeron) Take 1 Tablet by mouth at bedtime. 30 Tablet 5 11/27/2023 Active oxyCODONE HCl 5 MG Oral Tablet (Oxy IR) Take 1 Tablet by mouth every 6 hours as needed for Pain, Severe. 15 Tablet 0 12/04/2023 Active Metoclopramide HCl 10 MG Oral Tablet (Reglan) Take 1 Tablet by mouth every 6 hours as needed for Nausea. 30 Tablet 0 12/04/2023 Active Docusate Sodium 100 MG Oral Capsule (Colace) Take 1 Capsule by mouth in the morning and 1 Capsule before bedtime. 30 Capsule 1 12/04/2023 Active Ondansetron 4 MG Oral Tablet Disintegrating (Zofran) Place 1 Tablet on tongue every 6 hours as needed for Nausea. 30 Tablet 1 12/04/2023 Active Enoxaparin Sodium 40 MG/0.4ML Injection Solution Prefilled Syringe (Lovenox) Inject 40 mg under the skin in the morning and 40 mg before bedtime. 16 mL 0 12/05/2023 Active documented as of this encounter (statuses as of 12/06/2023) Active Problems Problem Noted Date Diagnosed Date Ileus, postoperative 12/01/2023 Urothelial carcinoma of kidney, right 11/14/2023 Medical home patient encounter 11/01/2022 Major depressive disorder, recurrent episode, mo derate 10/09/2022 Prediabetes 07/09/2022 Overview: Per Prediabetes protocol FAHAD (generalized anxiety disorder) 06/21/2022 Bilateral occipital neuralgia 08/31/2021 Intractable chronic migraine without aura and without status migrainosus 05/15/2021 Cervicalgia 05/15/2021 Status post functional endoscopic sinus surgery (FESS) 02/01/2021 Gastroesophageal reflux disease 02/01/2021 Mild intermittent asthma 08/06/2018 Anxiety state 06/25/2018 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 02/18/2017 Chronic tension-type headache, intractable 01/17 HTN, goal below 140/90 09/07/2015 Evans's esophagus 09/24/2013 ADVANCE DIRECTIVE INFORMATION 08/17/2008 Overview: Yes, Patient instructed to provide copy of advance directive for provider to review and to be scanned into Electronic Medical Record 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 Other specified disorder of penis 06/20/2005 Frequent headaches Overview: chronic frontal headaches ICD-10 update of inactive term Allergic rhinitis documented as of this encounter (statuses as of 12/06/2023) Resolved Problems Problem Noted Date Diagnosed Date Resolved Date Viral upper respiratory tract infection 08/06/2018 02/14/2021 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 06/11/2022 Sciatica 01/17/2017 05/28/2017 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 05/28/2017 Nocturia 06/20/2005 05/28/2017 ringworm-left cheek 05/11/2002 05/28/20 17 lesion under left arm 05/11/20022016 Chronic sinusitis 05/28/2017 documented as of this encounter (statuses as of 12/06/2023) Immunizations Name Administration Dates Next Due COVID-19 mRNA, LNP-s, No Pre serve, 2-Dose Series (Submittable) 07/17/2021,11/22/2020,10/26/2020 Pneumococcal Conjugate Vacc, 13 Valent (Prevnar) 12/30/2014 Pneumococcal Polysaccharide PPV23 (Pneumovax) 08/26/2011 Seasonal Influenza Virus Vac cine, Unspecified Formulation 06/06/2019,06/26/2016,08/26/2013,05/26,06/07/2012,04/26/2011 Seasonal Influenza, Quadriva lent Hd (Fluzone Hd) 06/03/2021 Seasonal Influenza, Quadriva lent Hd, 65+ Yrs 06/02/2022 Seasonal Influenza, Quadriva lent, No Preserve, IM 06/21/2016 Seasonal Influenza, Split, I IV3, With Preserve, Inj 05/09/2018,06/12/2017,05/25/2017 Seasonal Influenza, Trivalen t, Adjuvanted, 65+ yrs 05/25/2023,05/30/2020 TDAP (age 10 and older)(Boostrix) 05/27/2023, Varicella Zoster Vaccine (Adult) 05/30/2020,05/27 Zoster Vaccine Recombinant (Shingrix) 06/05/2022 ,05/30/2020 documented as of this encounter Social History Tobacco Use Types Packs/Day Years Used Date Smoking Tobacco: Former Cigarettes 40 Smokeless Tobacco: Former Snuff Comments:quit 35 year ago Alcohol Use Standard Drinks/Week Comments Not Currently 0 (1 standard drink = 0.6 oz pur e alcohol) PHQ-2 Answer Date Recorded PHQ Adult Total Score 2 06/14/2022 Hunger Vital Sign Answer Date Recorded Within the past 12 months, y ou worried that your food would run out before you got the money to buy more. Never true 09/04/19 Within the past 12 months, t he food you bought just didn't last and you didn't have money to get more. Never true 09/04/2023 Sex and Gender Information Value Date Recorded Sex Assigned at Male 10/06/2019 1:49 PM EST Gender Identity Male 10/06/2019 1:49 PM EST Sexual Orientation Straight 10/06/2019 1: 49 PM EST Job Start Date Occupation Industry Not on file Not on file Not on file documented as of this encounter Functional Status Functional Status Response Date of Assess ment Are you deaf or do you have serious difficulty h earing? No 11/27/2023 Are you blind or do you have serious difficulty seeing, even when wearing glasses? No 11/27/2023 Do you have serious difficul ty walking or climbing stairs? (5 years old or older) No 11/27/2023 Do you have difficulty dress ing or bathing? (5 years old or older) No 11/27/2023 Because of a physical, menta l, or emotional condition, do you have difficulty doing errands alone such as visiting a doctor s office or shopping? (15 years old or older) Yes 11/27/19 Cognitive Status Response Date of Assessm ent Because of a physical, menta l, or emotional condition, do you have serious difficulty concentrating, remembering, or making decisions? (5 years old or older) No 11/27/2023 documented as of this encounter Miscellaneous Notes * Telephone Encounter - Bev Marin RN - 12/06/2023 10:42 AM EDT I have placed patient on Dr. Wilson schedule for hospital follow up. Left a detailed voicemail withthis appt date and time and have asked patient or to let us know if they cannot keep this appton 12/15 at 11AM. * Telephone Encounter - Marcus Ruth OSA - 12/06/2023 9:53 AM EDT Looks like patient was seen about a month ago, and is scheduled for follow-up visits later this year. Is anything additional needed from a scheduling perspective? Please advise and route back if additional appt(s) are needed. * Telephone Encounter - Carlota Andino LPN - 12/06/2023 8:58 AM EDT Admission/Start of Care Admission/Start of Care: Kenzie LAN, Calling from: [facility] Patient was Admitted to: [facility], for: Urothelial Carcinoma of the right Kidney from 11/26 to 12/03 Referral ordered by: [facility] Referral received for: Jail, PT, and OT Planned start of care date:Yes, Date 12/04 Start of care completed on: YES Report/Concerns of:Medication Related Symptoms: none Vitals: T 97.8 P 60 RR 16 BP 98/70 SP O2 94% RA Narrative: Medication level 1 interactions: Contraindication for medication, should not be prescribed together: Bupropion 100mg interacting with Metaxall 800mg Metaxall 800mg interacting with Mertazapine 50mg They will call with any updates or additional concerns from the upcoming HH visit. Last Office Visit: 11/11/2023 Has patient been scheduled or seen in the office for a follow up visit: Needs contacted to schedulefollow up Advised that orders will be signed by Henrik Campbell DO and to fax to the office for signature. documented in this encounter Plan of Treatment Upcoming Encounters Date Type Department Care Team (Late st Contact Info) Description 12/12/2023 1:00 PM EDT Telemedicine Psychiatry, [place] [address] [facility] [place] [address] Princess [facility]won [facility] [address] [facility] [address] 12/16/2023 9:00 AM EDT Office Visit Urology, [facility] [address] [place] [address] Roberto Edwards MD [address] [place] [address] [place] [id number] 12/16/2023 11:00 AM EDT Office Visit Family Practice [facility] [address] [place] [address] Henrik Campbell DO [address] [place] [address] 01/22/2024 8:00 AM EDT Hospital Encounter ENDO OSS[facility], Endoscopy Room [facility] [address] [place] [phone] Delfina Butcher, DO [address] [place] [address] 01/22/2024 8:00 AM EDT - 01/22/2024 9:00 AM EDT Surgery ENDO [facility], Endoscopy Room [facility] [address] [place] [phone] Delfina Butcher, DO [address] [place] [address] COLONOSCOPY FLEXIBLE PROXIMAL DIAGNOSTIC 05/08/2024 1:30 PM EDT Office Visit Orthopaedics Spine Surgery, [facility] [address] [place] [address] Praneeth Elizalde MD [address] [place] [address] [place] [address] 05/08/2024 2:20 PM EDT Office Visit [facility] [address] [place] [address] Rema Carpenter CRNP [address] [place] [address] 11/23/2024 9:00 AM EDT Office Visit [facility] [address] [place] [address] Henirk Campbell DO [address] [place] [address] Scheduled Procedures Name Priority Associated Diagnoses Date/Ti me COLONOSCOPY FLEXIBLE PROXIMA L DIAGNOSTIC Recall Evans's esophagus History of colon polyps 01/22/2024 8:00 AM EDT ESOPHAGOGASTRODUODENOSCOPY ( EGD), FLEXIBLE, TRANSORAL, DIAGNOSTIC Recall Evans's esophagus History of colon polyps 01/22/2024 8:00 AM EDT Health Maintenance Due Date Last Done Comments *SPIROMETRY ONCE FOR ASTHMA-ADULT 07/19/2022 COVID-19 Vaccine ( season) 2023 07/17/2021, 11/22/2020, 10/26/2020 Evans's Esophagus Surveilance 08/03/2024 08/03/2021, 08/03/2021, 10/28/2020, Additional history exists COLONOSCOPY-EVERY 3 YRS AGES 18-100 08/03/2024 08/03/2021, 08/03/2021, 07/23/2018, Additional history exists HbA1c 11/05/2024 11/06/2023, 02/24, 05/28/2022, Additional history exists GFR 12/03/2024 12/04/2023, 04/0 04/2024, 12/02/2023, Additional history exists Albumin/Creatinine Ratio 11/05/2026 024, 03/22/2023, 02/14/2021 DTaP,Tdap,and Td Vaccines (3 - Td or Tdap) 05/27/2033 05/27/2023, 12/22/2010 Pneumococcal Vaccine: 65+ Years Completed 12/30/2014, 08/26/2011 Zoster Vaccines Completed 06/05/2022, 12/2019, 05/30/2020, Additional history exists Influenza Vaccine (FLU shot) Completed , 06/02/2022, 06/03/2021, Additional history exists GARDASIL-HPV IMMUNIZATION SERIES Aged Out No longer eligible based on patient's age to complete this topic Hepatitis B Aged Out No longer eligi ble based on patient's age to complete this topic MENINGOCOCCAL (MENACTRA/MENVEO) Aged Out No longer eligible based on patient's age to complete this topic documented as of this encounter Medical Devices Implanted Type Area Earth Science Teacher Device Identifier Shelf Expiration Date Model / Serial / Lot Lens Intraoc 19.5 - [id number] - [id number] Implanted:Qty: 1 on 12/07/2021 by Eulogio Barrios MD at OR [facility] Left: Eye [employer] 07/25/2026 [id number] / [id number] / [id number] Lens Intraoc 19.5 - [id number] - [id number] Implanted:Qty: 1 on 12/19/2021 by Eulogio Barrios MD at OR [facility] Right: Eye [employer] 07/25/2026 [id number] / [id number] / [id number] documented as of this encounter Advance Directives Documents on File Type Date Recorded Patient Electrotyper Expl anation Advance Directives and Living Will 04/22/2001 Roma Gutiérrez LIVING WILL Latest Code Status on File Code Status Date Activated Date Inactivated Comments Full Code 11/27/2023 1:06 PM 12/04/2023 10:54 PM This order reflects the patients wishes and were consensually agreed upon. Question Answer Comments Discussion of Advance Directives occurred with: Patient Code Status History Code Status Date Activated Date Inactivated Comments Full Code 11/27/2023 6:46 AM 11/27/2023 1:06 PM This or lloyd reflects the patients wishes and were consensually agreed upon. Question Answer Comments Discussion of Advance Directives occurred with: Patient Full Code 09/02/2023 1:54 PM 09/02/2023 10:24 PM This o rder reflects the patients wishes and were consensually agreed upon. Question Answer Comments Discussion of Advance Directives occurred with: Patient Full Code 09/02/2023 10:39 AM 09/02/2023 1:54 PM This o rder reflects the patients wishes and were consensually agreed upon. Question Answer Comments Discussion of Advance Directives occurred with: Patient Healthcare Agents on File Name Relationship Healthcare Agent [facility] Communication Roma Gutiérrez Spouse Health Care Agen t (per Health Care Power of Dairy Manufacturing Technologist document) Care Teams Timber Poisoner Relationship Specialty Start Date End Date Henrik Campbell DO [address] [place] [address] PCP - General Family Medicine 06/02/18 documented as of this encounter
--- OUTSIDE RECORDS SUMMARY | 2023-12-07 22:20 | External Medical Summary | Summary of Care ---
Author Name Unknown Organization [facility] Address [address] [facility] [place] [address] Phone [phone] Care Team Providers Care Director Of Employee Development Name Role Phone Adrian Henrik Diaz DO Primary Care Provider Reason for Visit * Reason Onset Date Comments Med Request 12/04/2023 Encounter Details Date Type Department Care Team (Late st Contact Info) Description 12/04/2023 Telephone [facility] Urology [address] [facility] [place] [address] Carina Monroy PA-C [address] [place] [address] [place] [address] Med Request Allergies Active Allergy Reactions Criticality Noted Date Comments Azelastine Unknown 02/01/2021 Onabotulinumtoxina Other (Please comment) High 01/20/2021 Swallowing difficulty after injection documented as of this encounter (statuses as of 12/05/2023) Medications Medication Sig Dispensed Refills Start Date [...] or Wheezing. With spacer 1 Inhaler 1 8 Active Sildenafil Citrate 100 MG Oral Tablet TAKE ONE TABLET BY MOUTH NEEDED FOR ED 0 1 Active Meclizine HCl 25 MG Oral Tablet (Antivert)Indicatio ns:Hospital discharge follow-up,Nausea Take 1 Tablet by mouth 3 times a day as needed for Dizziness. 60 Tablet 1 2 Active Esomeprazole Magnesium 20 MG Oral Capsule Delayed Release (NexIUM) Take by mouth 1 Capsule daily before breakfast . 90 Capsule 3 2 Active Additional Information Patient taking differently: 40 mgOral BEFORE BREAKFAST, Reported on 11/08/2022 Budesonide 32 MCG/ACT Nasal Suspension Administer 1 [place] into nostril in the morning. 0 Active Metaxalone 800 MG Oral Tablet Take one tablet by mouth at bedtime and 1/2 to one tablet up to an additional two times daily as needed for neck and head pain 90 Tablet 11 3 Active Rimegepant Sulfate 75 MG Oral Tablet Disintegrating 75 mg. 0 3 Active Propranolol HCl 10 MG Oral Tablet (Inderal) Take 1.5 tablet at 6 am and 1.5 tablet at 2 pm daily 90 Tablet 5 3 Active buPROPion HCl 100 MG Oral Tablet (Wellbutrin) Take 0.5 Tablets by mouth in the morning and 0.5 Tablets before bedtime. 30 Tablet 5 3 Active LORazepam 0.5 MG Oral Tablet (Ativan) Take 0.5 Tablets by mouth every night at bedtime. NO EARLY REFILLS 15 Tablet 5 3 Active hydrOXYzine HCl 25 MG Oral Tablet Take 1 Tablet by mouth daily as needed for Anxiety. 0 3 Active Finasteride 5 MG Oral Tablet (Proscar)Indication s:BPH with obstruction/lower urinary tract symptoms Take 1 Tablet by mouth in the morning. 90 Tablet 3 4 Active Lisinopril-hydroCHL OROthiazide 20-12.5 MG Oral Tablet TAKE 1 TABLET BY MOUTH ONCE DAILY 90 Tablet 1 4 Active Tamsulosin HCl 0.4 MG Oral Capsule (Flomax)Indications :BPH with obstruction/lower urinary tract symptoms TAKE ONE CAPSULE BY MOUTH IN THE MORNING 90 Capsule 3 4 Active Triamcinolone Acetonide 0.1 % External Ointment (Aristocort)Indicat ions:Other atopic dermatitis Apply topically to affected area 2 times a day. To affected area. 454 g 3 4 Active Indomethacin ER 75 MG Oral Capsule Extended Release (Indocin SR) Take 1 Capsule by mouth in the morning. 30 Capsule 5 4 Active Mirtazapine 15 MG Oral Tablet (Remeron) Take 1 Tablet by mouth at bedtime. 30 Tablet 5 4 Active oxyCODONE HCl 5 MG Oral Tablet (Oxy IR) Take 1 Tablet by mouth every 6 hours as needed for Pain, Severe. 15 Tablet 0 4 Active Metoclopramide HCl 10 MG Oral Tablet (Reglan) Take 1 Tablet by mouth every 6 hours as needed for Nausea. 30 Tablet 0 4 Active Docusate Sodium 100 MG Oral Capsule (Colace) Take 1 Capsule by mouth in the morning and 1 Capsule before bedtime. 30 Capsule 1 4 Active Ondansetron 4 MG Oral Tablet Disintegrating (Zofran) Place 1 Tablet on tongue every 6 hours as needed for Nausea. 30 Tablet 1 4 Active Enoxaparin Sodium 40 MG/0.4ML Injection Solution Prefilled Syringe (SharedReviewsnoRobin) Inject 40 mg under the skin in the morning and 40 mg before bedtime. 16 mL 0 4 Active Docusate Sodium 100 MG Oral Capsule (Colace) Take 1 Capsule by mouth in the morning and 1 Capsule before bedtime. 30 Capsule 1 4 12/04/19 24 Discontinued Metoclopramide HCl 10 MG Oral Tablet (Reglan) Take 1 Tablet by mouth every 6 hours as needed for Nausea. 30 Tablet 0 4 12/04/19 24 Discontinued Ondansetron 4 MG Oral Tablet Disintegrating (Zofran) Dissolve 1 Tablet on tongue every 6 hours as needed for Nausea. 30 Tablet 1 4 12/04/19 24 Discontinued oxyCODONE HCl 5 MG Oral Tablet (Oxy IR) Take 1 Tablet by mouth every 6 hours as needed for Pain, Severe. 15 Tablet 0 4 12/04/19 24 Discontinued Omeprazole 20 MG Oral Capsule Delayed Release (PriLOSEC) Take 1 Capsule by mouth in the morning. 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 Never true 09/04/19 24 Within the past 12 months, t he [...] (15 years old or older) Yes 11/27/19 24 Cognitive Status Response Date of Assessm ent Because of a physical, menta l, or emotional condition, do you have serious difficulty concentrating, remembering, or making decisions? (5 years old or older) No 11/27/2023 documented as of this encounter Miscellaneous Notes * Addendum Note - Carina Monroy PA-C - 12/05/2023 3:06 PM EDTAddended by: CARINA MONROY on: 12/05/2023 03:06 PM Modules accepted: Orders * Telephone Encounter - Carina Monroy PA-C - 12/05/2023 3:04 PM EDT I discontinued Eliquis and prescribed Lovenox which should be more affordable. Omeprazole was for stress ulcer prophylaxis, but patient can take esomeprazole magnesium or Nexium as he has been for ppx. Omeprazole has been discontinued. Please have them reach out if they have any other questions. Thanks! * Telephone Encounter - Breanna Tan OSA - 12/05/2023 11:15 AM EDT Pt's calling regarding script for Eliquis, medication not covered by insurance, and cost over $300 out of pocket. Pharmacist advised Pt. To check with prescribing provider if coupons are available to help cover the cost, or if an alternative can be prescribed. also wants to know why Pt. Was prescribed 20 MG of Omeprazole instead of 40 MG. * Telephone Encounter - Carina Monroy PA-C - 12/04/2023 5:25 PM EDT Discharge meds ordered to [facility]. documented in this encounter Plan of Treatment Upcoming Encounters Date Type Department Care Team (Late st Contact Info) Description 12/06/2023 11:00 AM EDT Nurse Only UrologWoody Lau [address] [place] [address] [place] [address] Nurse Woody Urologchandan Dior RN [address] [place] [address] [place] [address] 12/12/2023 1:00 PM EDT [facility] [address] [place] [address] Princess Kwon MD [address] [place] [address] 12/16/2023 9:00 AM EDT Office Visit Urology, [facility] [address] [place] [address] Roberto Edwards MD [address] [place] [address] [place] [address] 01/22/2024 8:00 AM EDT Hospital Encounter ENDO OSSC, Endoscopy Room [facility] [address] [place] [phone] Delfina Butcher DO [address] [place] [address] 01/22/2024 8:00 AM EDT - 01/22/2024 9:00 AM EDT Surgery ENDO OSSC, Endoscopy Room [facility] [address] [place] [phone] Delfina Butcher, DO [address] [place] [address] COLONOSCOPY FLEXIBLE PROXIMAL DIAGNOSTIC 05/08/2024 1:30 PM EDT Office Visit Orthopaedics Spine Surgery, [facility] [address] [place] [address] Praneeth Elizalde MD [address] [place] [address] [place] [address] 05/08/2024 2:20 PM EDT Office Visit [facility] [address] [place] [address] Rema Carpenter CRNP [address] [place] [address] 11/23/2024 9:00 AM EDT Office Visit [facility] [address] [place] [address] Henrik Campbell, [address] [place] [address] Scheduled Procedures Name Priority Associated Diagnoses Date/Ti [...] 05/28/2022, Additional history exists GFR 12/03/2024 12/04/2023, 0 04/2024, 12/02/2023, Additional history exists Albumin/Creatinine Ratio [...] this encounter Medical Devices Implanted Type Area Vp Corporate Partnerships Device Identifier Shelf Expiration Date Model / Serial / Lot Lens Intraoc 19.5 - [id number] - [id number] Implanted:Qty: 1 on 12/07/2021 by Eulogio Barrios MD at OR [facility] Left: Eye BAUSCH [employer] LOMB 07/25/2026 [id number] / [id number] / [id number] Lens Intraoc 19.5 - [id number] - [id number] Implanted:Qty: 1 on 12/19/2021 by Eulogio Barrios MD at OR [facility] Right: Eye BAUSCH & LOMB 07/25/2026 [id number] / [id number] / [id number] documented as of this encounter Advance Directives Documents on File Type Date Recorded Patient Cell Pourer Expl anation Advance Directives and Living Will [...] Agents on File Name Relationship Healthcare Agent Relationshi p Communication Roma Gutiérrez Spouse Health Care Agen t (per Health Care Power of Talent Associate document) Care Teams Director Of Employee Development Relationship Specialty Start Date End Date Henrik Campbell DO [address] [place] [address] PCP - General Family Medicine 06/02/18 documented as of this encounter
--- OUTSIDE RECORDS SUMMARY | 2023-12-07 22:20 | External Medical Summary | Summary of Care ---
Author Name Unknown Organization [facility] Address [address] [place] [address] Phone [phone] Care Team Providers Care Design Engineer Agricultural Equipment Name Role Phone Henrik Campbell DO Primary Care Provider Encounter Details Date Type Department Care Team (Late st Contact Info) Description 12/07/2023 Telephone [facility] [place] [address] [place] [address] Jaspreet Luna MD [address] [place] [address] Allergies Active Allergy Reactions Criticality Noted Date Comments Azelastine Unknown 02/01/2021 Onabotulinumtoxina Other (Please comment) High 01/20/2021 Swallowing difficulty after injection documented as of this encounter (statuses as of 12/07/2023) Medications Medication Sig Dispensed Refills Start Date [...] Budesonide 32 MCG/ACT Nasal Suspension Administer 1 [place] into nostril in the morning. 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 05/28/2017 Nocturia 06/20/2005 05/28/2017 ringworm-left cheek 05/11/2002 05/28/20 17 lesion under left arm 05/11/20022016 Chronic sinusitis 05/28/2017 documented as of this encounter (statuses as of 12/07/2023) Immunizations Name Administration Dates Next Due COVID-19 mRNA, LNP-s, No Pre serve, 2-Dose Series ([employer]) 07/17/2021,11/22/2020,10/26/2020 Pneumococcal Conjugate Vacc, 13 Valent (Prevnar) [...] encounter Miscellaneous Notes * Telephone Encounter - Jaspreet Luna MD - 12/07/2023 2:56 PM EDT DARNELL Braxton nurse from [facility] called saying that after singh was removed after NephU 11/27/23, patient has been having weak stream, frequency, and urgency. Patient is able to void spontaneously but feelsas though he may not be voiding to completion. I have not seen the patient to evaluate him but recommended he seek medical care for formal evaluation with PVR either at the nearest ED if urgent, or sometime early this coming week at Dr. Edwards's office. documented in this encounter Plan of Treatment Upcoming Encounters Date Type Department Care Team (Late st Contact Info) Description 12/12/2023 1:00 PM EDT Telemedicine Psychiatry, [place] [address] [place] [address] Princess Kwon MD [address] [place] [address] 12/16/2023 9:00 AM EDT Office Visit Urology, [facility] [address] [place] [address] Roberto Edwards MD [address] [facility] [address] [place] [address] 12/16/2023 11:00 AM EDT Office Visit Family Practice [facility] [address] [place] [address] Henrik Campbell, [address] [place] [address] 01/22/2024 8:00 AM EDT Hospital Encounter ENDO OSSC, Endoscopy Room [facility] [address] [place] [phone] Delfina Butcher, [address] [place] [address] 01/22/2024 8:00 AM EDT - 01/22/2024 9:00 AM EDT Surgery ENDO O[facility], Endoscopy Room [facility] [address] [place] [phone] Delfina Butcher, DO [address] [place] [address] COLONOSCOPY FLEXIBLE PROXIMAL DIAGNOSTIC 05/08/2024 1:30 PM EDT Office Visit Orthopaedics Spine Surgery, [facility] [address] [place] [address] Praneeth Elizalde MD [address] [place] [address] [place] [address] 05/08/2024 2:20 PM EDT Office Visit [facility] [address] [place] [address] Rema Carpenter CRNP [address] [place] [address] 11/23/2024 9:00 AM EDT Office Visit [facility] [address] [place] [address] Henrik Campbell, DO [address] [place] [address] Scheduled Procedures Name Priority Associated Diagnoses Date/Ti [...] this encounter Medical Devices Implanted Type Area Pension Administrator Device Identifier Shelf Expiration Date Model / Serial / Lot Lens Intraoc 19.5 - [id number] - [id number] Implanted:Qty: 1 on 12/07/2021 by Eulogio Barrios MD at OR [facility] Left: Eye [employer]USCH [employer] LOMB 07/25/2026 [id number] / [id number] / [id number] Lens Intraoc 19.5 - [id number] - [id number] Implanted:Qty: 1 on 12/19/2021 by Eulogio Barrios MD at OR [facility] Right: Eye BAUSCH [employer] LOMB 07/25/2026 [id number] / [id number] / [id number] documented as of this encounter Advance Directives Documents on File Type Date Recorded Patient Manager Of Medical Expl anation Advance Directives and Living Will [...] Relationship Healthcare Agent Relationshi p Communication Roma Rosenbaumn Spouse Health Care Agen t (per Health Care Power of Window Maker document) Care Teams Design Engineer Agricultural Equipment Relationship Specialty Start Date End Date Henrik Campbell DO [address] [place] [address] PCP - General Family Medicine 06/02/18 documented as of this encounter
--- OUTSIDE RECORDS SUMMARY | 2023-12-07 22:20 | External Medical Summary | Summary of Care ---
Author Name Unknown Organization [facility] Address [address] [facility] [place] [address] Phone [phone] Care Team Providers Care Tensioning Machine Operator Name Role Phone Adrian Henrik Diaz DO Primary Care Provider Reason for Visit * Reason Onset Date Comments Appointment 12/04/2023 Encounter Details Date Type Department Care Team (Late st Contact Info) Description 12/04/2023 Telephone [facility] Urology [address] [facility] [place] [address] Yumiko Zabala PA-C [address] [place] [address] [place] [address] Appointment Allergies Active Allergy Reactions Criticality Noted Date [...] Budesonide 32 MCG/ACT Nasal Suspension Administer 1 [place] into nostril in the morning. 0 Active [...] at bedtime. 30 Tablet 5 4 Active Docusate Sodium 100 MG Oral [...] 15 Tablet 0 4 12/04/19 24 Discontinued documented as of this encounter [...] mRNA, LNP-s, No Pre serve, 2-Dose Series ([employer]) 07/17/2021,11/22/2020,10/26/2020 Pneumococcal Conjugate Vacc, 13 Valent (Prevnar) [...] encounter Miscellaneous Notes * Telephone Encounter - Carlota Graf, MED ASSIST - 12/05/2023 8:13 AM EDT Appointment was canceled on 12-05 and 4-15. I rescheduled the post op on 12/15 @ 9am @ [facility]. He is aware of this. However he was very adamant to get this catheter out tomorrow. Should he still come ando a TOV? * Telephone Encounter - Yumiko Zabala PA-C - 12/04/2023 4:41 PM EDT Please re-schedule patient's post-op appointment with Dr. Edwards to the week of 12/15. His TOV and PO appointments on 12/05 and 12/08 should be cancelled. Thanks! documented in this encounter Plan of Treatment Upcoming Encounters Date Type Department Care Team (Late st Contact Info) Description 12/12/2023 1:00 PM EDT Telemedicine Psychiatry, [place] [address] [place] [address] Princess Kwon MD [address] [place] [address] 12/16/2023 9:00 AM EDT Office Visit Urology, [facility] [address] [place] [address] Roberto Edwards MD [address] [place] [address] [place] [address] 01/22/2024 8:00 AM EDT Hospital Encounter ENDO OSSC, Endoscopy Room [facility] [address] [place] [phone] Delfina Butcher DO [address] [place] [address] 01/22/2024 8:00 AM EDT - 01/22/2024 9:00 AM EDT Surgery ENDO OSSC, Endoscopy Room [facility] [address] [place] [phone] Delfina Butcher, DO [address] [place] [address] COLONOSCOPY FLEXIBLE PROXIMAL DIAGNOSTIC 05/08/2024 1:30 PM EDT Office Visit Orthopaedics Spine Surgery, [facility] [address] [place] [address] Praneeth Elizalde MD [address] [place] [address] [place] [id number] 05/08/2024 2:20 PM EDT Office Visit [facility] [address] [place] [address] Rema Carpenter CRNP [address] [place] [address] 11/23/2024 9:00 AM EDT Office Visit [facility] [address] [place] [address] Henrik Campbell, [address] [place] [address] Scheduled Procedures Name Priority Associated Diagnoses Date/Ti [...] 05/28/2022, Additional history exists GFR 12/03/2024 12/04/2023, 040 04/2024, 12/02/2023, Additional history exists Albumin/Creatinine Ratio [...] this encounter Medical Devices Implanted Type Area Strategic Communications Manager Device Identifier Shelf Expiration Date Model / Serial / Lot Lens Intraoc 19.5 - [id number] - [id number] Implanted:Qty: 1 on 12/07/2021 by Eulogio Barrios MD at OR [facility] Left: Eye BAUSCH [employer] LOMB 07/25/2026 [id number] / [id number] / [id number] Lens Intraoc 19.5 - [id number] - [id number] Implanted:Qty: 1 on 12/19/2021 by Eulogio Barrios MD at OR [facility] Right: Eye BAUSCH [employer] LOMB 07/25/2026 [id number] / [id number] / [id number] documented as of this encounter Advance Directives Documents on File Type Date Recorded Patient Apartment Groundskeeper Expl anation Advance Directives and Living Will [...] Agents on File Name Relationship Healthcare Agent [facility] Communication Roma Brock Spouse Health Care Agen t (per Health Care Power of Camera Tuning Engineer document) Care Teams Tensioning Machine Operator Relationship Specialty Start Date End Date Henrik Campbell DO [address] [place] [address] PCP - General Family Medicine 06/02/18 documented as of this encounter
--- OUTSIDE RECORDS SUMMARY | 2023-12-07 22:20 | External Medical Summary | Summary of Care ---
Author Name Unknown Organization [facility] Address [address] [facility] [place] [address] Phone [phone] Care Team Providers Care Food Or Baggage Handling Rampman Name Role Phone Adrian Henrik Diaz DO Primary Care Provider Reason for Visit * Reason Onset Date Comments Med Request 12/04/2023 Encounter Details Date Type Department Care Team (Late st Contact Info) Description 12/04/2023 Telephone [facility] Urology [address] [facility] [place] [address] Yumiko Zabala PA-C [...] Budesonide 32 MCG/ACT Nasal Suspension Administer 1 [place] into nostril in the morning. 0 Active [...] for Nausea. 30 Tablet 1 4 Active Omeprazole 20 MG Oral Capsule Delayed Release (PriLOSEC) Take 1 Capsule by mouth in the morning. 15 Capsule 0 4 Active Docusate Sodium 100 MG [...] mRNA, LNP-s, No Pre serve, 2-Dose Series ([employer]) 07/17/2021,11/22/2020,10/26/2020 Pneumococcal Conjugate Vacc, 13 Valent (Prevnar) [...] encounter Miscellaneous Notes * Telephone Encounter - Breanna Tan OSA [...] of 40 MG. * Telephone Encounter - Yumiko Zabala PA-C - 12/04/2023 5:25 PM EDT Discharge meds ordered to [facility]. documented in this encounter Plan of Treatment Upcoming Encounters Date Type Department Care Team (Late st Contact Info) Description 12/06/2023 11:00 AM EDT Nurse Only Urology Woody Serrano [address] [place] [address] [place] [address] Nurse Woody Urologchandan Dior RN [address] [place] [address] [place] [address] 12/12/2023 1:00 PM EDT Telemedicine Psychiatry, [place] [address] [facility] [place] [phone] Princess Kwon MD [address] [facility] [place] [address] 12/16/2023 9:00 AM EDT Office Visit Urology, [facility] [address] [place] [address] Roberto Edwards MD [address] [place] [address] [place] [address] 01/22/2024 8:00 AM EDT Hospital Encounter ENDO OSSC, Endoscopy Room [facility] [address] [place] [phone] Delfina Butcher, DO [address] [place] [address] 01/22/2024 8:00 AM EDT - 01/22/2024 9:00 AM EDT Surgery ENDO OSSC, Endoscopy Room [facility] [address] [place] [phone] Delfina Butcher, DO [address] [place], [place] [address] COLONOSCOPY FLEXIBLE PROXIMAL DIAGNOSTIC 05/08/2024 1:30 PM EDT Office Visit Orthopaedics Spine Surgery, [facility] [address] [place] [address] Praneeth Elizalde MD [address] [place] [address] [place] [address] 05/08/2024 2:20 PM EDT Office Visit Family Practice [facility] [address] [place] [address] Rema Carpenter CRNP [address] [place] [address] 11/23/2024 9:00 AM EDT Office Visit Family Practice [facility] [address] [place] [address] Henrik Campbell, [address] [place] [address] Scheduled Procedures Name Priority Associated Diagnoses Date/Ti [...] 05/28/2022, Additional history exists GFR 12/03/2024 12/04/2023, 04/2024, 12/02/2023, Additional history exists Albumin/Creatinine Ratio [...] this encounter Medical Devices Implanted Type Area Rehabilitation Teacher Device Identifier Shelf Expiration Date Model / Serial / Lot Lens Intraoc 19.5 - [id number] - [id number] Implanted:Qty: 1 on 12/07/2021 by Eulogio Barrios MD at OR [facility] Left: Eye BAUSCH [employer] LOMB 07/25/2026 [id number] / [id number] / [id number] Lens Intraoc 19.5 - [id number] - [id number] Implanted:Qty: 1 on 12/19/2021 by Eulogio Barrios MD at OR [facility] Right: Eye BAUSCH & LOMB 07/25/2026 [id number] / [id number] / [id number] documented as of this encounter Advance Directives Documents on File Type Date Recorded Patient Account Development Executive Expl anation Advance Directives and Living Will [...] 09/02/2023 10:39 AM 09/02/2023 1:54 PM This order reflects the patients wishes and were consensually agreed upon. Question Answer Comments Discussion of Advance Directives occurred with: Patient Healthcare Agents on File Name Relationship Healthcare Agent Relationshi p Communication Roma Gutiérrez Spouse Health Care Agen t (per Health Care Power of Md Allergy Immunology document) Care Teams Food Or Baggage Handling Rampman Relationship Specialty Start Date End Date Henrik Campbell DO [address] [place] [address] PCP - General Family Medicine 06/02/18 documented as of this encounter
--- OUTSIDE RECORDS SUMMARY | 2023-12-07 22:20 | External Medical Summary | Summary of Care ---
Author Name Unknown Organization [facility] Address [address] [facility] [place] [address] Phone [phone] Care Team Providers Care Tunnel Inspector Name Role Phone Henrik Campbell DO Primary Care Provider Encounter Details Date Type Department Care Team (Late st Contact Info) Description 12/04/2023 Telephone [facility] Urology [address] [facility] [place] [address] Yumiko Zabala PA-C [address] [place] [address] [place] [address] Allergies Active Allergy Reactions Criticality Noted Date [...] Budesonide 32 MCG/ACT Nasal Suspension Administer 1 [place] into nostril in the morning. 0 Active [...] mRNA, LNP-s, No Pre serve, 2-Dose Series ([employer]) 07/17/2021,11/22/2020,10/26/2020 Pneumococcal Conjugate Vacc, 13 Valent (Prevnar) [...] encounter Miscellaneous Notes * Telephone Encounter - Yumiko Zabala PA-C - 12/04/2023 4:41 PM EDT Please re-schedule patient's post-op appointment with Dr. Edwards to the week of 12/15. His TOV and PO appointments on 12/05 and 12/08 should be cancelled. Thanks! documented in this encounter Plan of Treatment Upcoming Encounters Date Type Department Care Team (Late st Contact Info) Description 12/12/2023 1:00 PM EDT Telemedicine Psychiatry, [place] [address] [place] [address] Princess Kwon MD [address] [place] [address] 12/16/2023 9:00 AM EDT Office Visit Urology, [facility] [address] [place] [address] Roberto Edwards MD [address] [place] [address] [place] [address] 01/22/2024 8:00 AM EDT Hospital Encounter ENDO [facility], Endoscopy Room [facility] [address] [place] [phone] Delfina Butcher, [address] [place] [address] 01/22/2024 8:00 AM EDT - 01/22/2024 9:00 AM EDT Surgery ENDO [facility], Endoscopy Room [facility] [address] [place] [phone] Delfina Butcher DO [address] [place] [address] COLONOSCOPY FLEXIBLE PROXIMAL DIAGNOSTIC 05/08/2024 1:30 PM EDT Office Visit Orthopaedics Spine Surgery, [facility] [address] [place] [address] Praneeth Elizalde MD [address] [place] [address] [place] [address] 05/08/2024 2:20 PM EDT Office Visit [facility] [address] [place] [address] Rema Carpenter CRNP [address] [place] [address] 11/23/2024 9:00 AM EDT Office Visit [facility] [address] [place] [address] Henrik Campbell DO [address] [place] [address] Scheduled Procedures Name Priority Associated Diagnoses Date/Ti [...] 07/23/2018, Additional history exists HbA1c 11/05/2024 11/06/2023, 0703/2023, 05/28/2022, Additional history exists GFR 12/03/2024 12/04/2023, [...] this encounter Medical Devices Implanted Type Area Supervisor Statement Clerks Device Identifier Shelf Expiration Date Model / Serial / Lot Lens Intraoc 19.5 - [id number] - [id number] Implanted:Qty: 1 on 12/07/2021 by Eulogio Barrios MD at OR [facility] Left: Eye BAUSCH & LOMB 07/25/2026 [id number] / [id number] / [id number] Lens Intraoc 19.5 - [id number] - [id number] Implanted:Qty: 1 on 12/19/2021 by Eulogio Barrios MD at OR [facility] Right: Eye BAUSCH & LOMB 07/25/2026 [id number] / [id number] / [id number] documented as of this encounter Advance Directives Documents on File Type Date Recorded Patient Cover Mat Machine Operator Expl anation Advance Directives and Living Will [...] Agents on File Name Relationship Healthcare Agent [facility] p Communication Roma Gutiérrez Spouse Health Care Agen t (per Health Care Power of Livestock Exhibitor document) Care Teams Tunnel Inspector Relationship Specialty Start Date End Date Henrik Campbell DO [address] [place] [address] PCP - General Family Medicine 06/02/18 documented as of this encounter
--- OUTSIDE RECORDS SUMMARY | 2023-12-07 22:20 | External Medical Summary | Summary of Care ---
Author Name Unknown Organization [facility] Address [address] [facility] [place] [address] Phone [phone] Care Team Providers Care Pastry Artist Name Role Phone Adrian Henrik Diaz DO Primary Care Provider Reason for Visit * Reason Onset Date Comments Appointment 12/04/2023 Encounter Details Date Type Department Care Team (Late st Contact Info) Description 12/04/2023 Telephone [facility] Urology [address] [facility] [place] [address] Yumiko Zabala PA-C 27 [...] Budesonide 32 MCG/ACT Nasal Suspension Administer 1 [place] into nostril in the morning. 0 Active [...] mRNA, LNP-s, No Pre serve, 2-Dose Series ([employer]) 07/17/2021,11/22/2020,10/26/2020 Pneumococcal Conjugate Vacc, 13 Valent (Prevnar) [...] Telephone Encounter - Yumiko Zabala PA-C - 12/05/2023 10:59 AM EDT Okay thank you! Yes you can put him back on the nurse schedule for a TOV tomorrow. Thanks! * Telephone Encounter - Carlota Graf MED ASSIST - 12/05/2023 8:13 AM EDT Appointment was canceled on 12-05 and 12-08. I rescheduled the post op on 12/15 [...] Info) Description 12/12/2023 1:00 PM ED[facility] [address] [place] [address] Princess Kwon MD [address] [place] [address] 12/16/2023 9:00 AM EDT Office Visit Urology, [facility] [address] [place] [address] Roberto Edwards MD [address] [place] [address] [place] [address] 01/22/2024 8:00 AM EDT Hospital Encounter ENDO [facility], Endoscopy Room [facility] [address] [place] [address] Delfina Butcher, DO [address] [place] [address] 01/22/2024 8:00 AM EDT - 01/22/2024 9:00 AM EDT Surgery ENDO [facility], Endoscopy Room [facility] [address] [place] [phone] Delfina Butcher, DO [address] [place] [address] COLONOSCOPY FLEXIBLE PROXIMAL DIAGNOSTIC 05/08/2024 1:30 PM EDT [facility] [address] [place] [address] Praneeth Elizalde MD [address] [place] [address] [place] [address] 05/08/2024 2:20 PM EDT Office Visit [facility] [address] [place] [address] Rema Carpenter CRNP [address] [place] [address] 11/23/2024 9:00 AM EDT Office Visit [facility] [address] [place] [address] Henrik Campbell, [address] [place] [address] Scheduled Procedures Name Priority Associated Diagnoses Date/Ti [...] this encounter Medical Devices Implanted Type Area Respiratory Therapy Instructor Device Identifier Shelf Expiration Date Model / Serial / Lot Lens Intraoc 19.5 - [id number] - [id number] Implanted:Qty: 1 on 12/07/2021 by Eulogio Barrois MD at [facility] Left: Eye BAUSCH & LOMB 07/25/2026 [id number] / [id number] / [id number] Lens Intraoc 19.5 - [id number] - [id number] Implanted:Qty: 1 on 12/19/2021 by Eulogio Barrios MD at OR [facility] Right: Eye BAUSCH & LOMB 07/25/2026 [id number] / [id number] / [id number] documented as of this encounter Advance Directives Documents on File Type Date Recorded Patient Automatic Head Sawyer Expl anation Advance Directives and Living Will [...] Agen t (per Health Care Power of Leader Writer document) Care Teams Pastry Artist Relationship Specialty Start Date End Date Henrik Campbell DO [address] [place] [address] PCP - General Family Medicine 06/02/18 documented as of this encounter
--- OUTSIDE RECORDS SUMMARY | 2023-12-07 22:20 | External Medical Summary | Summary of Care ---
Author Name Unknown Organization [facility] Address [address] [facility] [place] [address] Phone [phone] Care Team Providers Care Cigarette Packer Name Role Phone Adrian Henrik Diaz DO Primary Care Provider Reason for Visit * Reason Onset Date Comments Med Request 12/04/2023 Encounter Details Date Type Department Care Team (Late st Contact Info) Description 12/04/2023 Telephone [facility] Urology 400 [facility] [place] [address] Carina Monroy PA-C 27 [...] Budesonide 32 MCG/ACT Nasal Suspension Administer 1 [place] into nostril in the morning. 0 Active [...] Sodium 40 MG/0.4ML Injection Solution Prefilled Syringe ([email or web address]) Inject 40 mg under the skin in [...] mRNA, LNP-s, No Pre serve, 2-Dose Series ([employer]) 07/17/2021,11/22/2020,10/26/2020 Pneumococcal Conjugate Vacc, 13 Valent (Prevnar) [...] encounter Miscellaneous Notes * Telephone Encounter - Ira Min LPN - 12/05/2023 3:48 PM EDT Patient and aware. * Addendum Note - Carina Monroy PA-C [...] 5:25 PM EDT Discharge meds ordered to [facility]. documented in this encounter Plan of Treatment Upcoming Encounters Date Type Department Care Team (Late st Contact Info) Description 12/06/2023 11:00 AM EDT Nurse Only Urology Woody Serrano [address] [place] [address] [place] [address] Nurse Woody Urology EDYTA Dior [address] [place] [address] [place] [address] 12/12/2023 1:00 PM EDT [facility] [address] [place] [address] Princess Kwon MD [address] [place] [address] 12/16/2023 9:00 AM EDT Office Visit Urology, [facility] [address] [place] [address] Roberto Edwards MD [address] [place] [address] [place] [address] 01/22/2024 8:00 AM EDT Hospital Encounter ENDO [facility], Endoscopy Room [facility] [address] [phone] Delfina Butcher DO [address] [place] [address] 01/22/2024 8:00 AM EDT - 01/22/2024 9:00 AM EDT Surgery ENDO [facility], Endoscopy Room [facility] [address] [place] [phone] Delfina Butcher, DO [address] [place] [address] COLONOSCOPY FLEXIBLE PROXIMAL DIAGNOSTIC 05/08/2024 1:30 PM EDT [facility] [address] [place] [address] Praneeth Elizalde MD [address] [place] 240 [place] [address] 05/08/2024 2:20 PM EDT Office Visit [facility] [address] [place] [address] Rema Carpenter CRNP [address] [place] [address] 11/23/2024 9:00 AM EDT Office Visit [facility] [address] [place] [address] Henrik Campbell, [address] [place] [address] Scheduled Procedures Name Priority Associated Diagnoses Date/Ti [...] Completed 12/30/2014, 08/26/2011 Zoster Vaccines Completed 06/05/2022, 100 12/2019, 05/30/2020, Additional history exists Influenza Vaccine [...] this encounter Medical Devices Implanted Type Area Paintless Dent Repair Technician Device Identifier Shelf Expiration Date Model / Serial / Lot Lens Intraoc 19.5 - [id number] - [id number] Implanted:Qty: 1 on 12/07/2021 by Eulogio Barrios MD at OR [facility] Left: Eye BAUSCH & LOMB 07/25/2026 [id number] / [id number] / [id number] Lens Intraoc 19.5 - [id number] - [id number] Implanted:Qty: 1 on 12/19/2021 by Eulogio Barrios MD at OR [facility] Right: Eye BAUSCH & LOMB 07/25/2026 [id number] / [id number] / [id number] documented as of this encounter Advance Directives Documents on File Type Date Recorded Patient Bus Info Consultant Expl anation Advance Directives and Living Will [...] Agen t (per Health Care Power of Display Trimmer document) Care Teams Cigarette Packer Relationship Specialty Start Date End Date Henrik Campbell DO [address] [address] PCP - General Family Medicine 06/02/18 documented as of this encounter
--- OUTSIDE RECORDS SUMMARY | 2023-12-07 22:20 | External Medical Summary | Summary of Care ---
Author Name Unknown Organization [facility] Address [address] [facility] [place] [address] Phone [phone] Care Team Providers Care Major Case Detective Name Role Phone Adrian Henrik Diaz DO Primary Care Provider Reason for Visit * Reason Onset Date Comments Med Request 12/04/2023 Encounter Details Date Type Department Care Team (Late st Contact Info) Description 12/04/2023 Telephone [facility] Urology 400 [facility] [place] [address] Yumiko Zabala [...] Budesonide 32 MCG/ACT Nasal Suspension Administer 1 [place] into nostril in the morning. 0 Active [...] mRNA, LNP-s, No Pre serve, 2-Dose Series ([employer] 07/17/2021,11/22/2020,10/26/2020 Pneumococcal Conjugate Vacc, 13 Valent (Prevnar) [...] 5:25 PM EDT Discharge meds ordered to [facility]. documented in this encounter Plan of Treatment Upcoming Encounters Date Type Department Care Team (Late st Contact Info) Description 12/12/2023 1:00 PM EDT Telemedicine Psychiatry, [place] [address] [facility] [place] [address] Princess Kwon MD [address] [facility] [place] [address] 12/16/2023 9:00 AM EDT Office Visit Urology, [facility] 132 [facility] [place] [address] Roberto Edwards MD [address] [place] [address] [place] [address] 01/22/2024 8:00 AM EDT Hospital Encounter ENDO [facility], Endoscopy Room [facility] [address] [place] [phone] Delfina Butcher, DO [address] [place] [address] 01/22/2024 8:00 AM EDT - 01/22/2024 9:00 AM EDT Surgery ENDO [facility], Endoscopy Room [facility] [address] [place] [phone] Delfina Butcher, DO [address] [place] [address] COLONOSCOPY FLEXIBLE PROXIMAL DIAGNOSTIC 05/08/2024 1:30 PM EDT [facility] [address] [place] [address] Praneeth Elizalde MD [address] [place] 240 [place] [address] 05/08/2024 2:20 PM EDT Office Visit [facility] [address] [place] [address] Rema Carpenter CRNP [address] [place] [address] 11/23/2024 9:00 AM EDT Office Visit [facility] [address] [place] [address] Henrik Campbell, [address] [place] [address] Scheduled Procedures Name Priority Associated Diagnoses Date/Ti [...] this encounter Medical Devices Implanted Type Area Communications Professor Device Identifier Shelf Expiration Date Model / Serial / Lot Lens Intraoc 19.5 - [id number] - [id number] Implanted:Qty: 1 on 12/07/2021 by Eulogio Barrios MD at OR [facility] Left: Eye BAUSCH & LOMB 07/25/2026 [id number] / [id number] / [id number] Lens Intraoc 19.5 - [id number] - [id number] Implanted:Qty: 1 on 12/19/2021 by Eulogio Barriso MD at OR [facility] Right: Eye BAUSCH & LOMB 07/25/2026 [id number] / [id number] / [id number] documented as of this encounter Advance Directives Documents on File Type Date Recorded Patient Gin Feeder Expl anation Advance Directives and Living Will [...] Agen t (per Health Care Power of Drilling Machine Operator document) Care Teams Major Case Detective Relationship Specialty Start Date End Date Henrik Campbell DO [address] [place] [address] PCP - General Family Medicine 06/02/18 documented as of this encounter
--- OUTSIDE RECORDS SUMMARY | 2023-12-07 22:20 | External Medical Summary | Summary of Care ---
Author Name Unknown Organization [facility] Address [address] [facility] [place] [address] Phone [phone] Care Team Providers Care Bed Bug Exterminator Name Role Phone Adrian Henrik Diaz DO Primary Care Provider Reason for Visit * Reason Onset Date Comments Appointment 12/04/2023 Encounter Details Date Type Department Care Team (Late st Contact Info) Description 12/04/2023 Telephone [facility] Urology 400 [facility] [place] [address] Yumiko Zabala PA-C [...] Budesonide 32 MCG/ACT Nasal Suspension Administer 1 [place] into nostril in the morning. 0 Active [...] mRNA, LNP-s, No Pre serve, 2-Dose Series ([employer]) 07/17/2021,11/22/2020,10/26/2020 Pneumococcal Conjugate Vacc, 13 Valent (Prevnar) [...] Miscellaneous Notes * Telephone Encounter - Carlota Graf MED ASSIST - 12/05/2023 11:43 AM EDT Patient rescheduled for tomorrow, he is aware of appointment. * Telephone Encounter - Yumiko Zabala PA-C [...] [address] [place] [address] [place] [address] Nurse Woody Urologchandan Dior RN [address] [place] [address] [place] [address] 12/12/2023 1:00 PM EDT [facility] Psychiatry, [address] [place] [address] Princess Kwon MD [address] [facility] [address] 12/16/2023 9:00 AM EDT Office Visit Urology, [facility] [address] [place] [address] Roberto Edwards MD [address] [place] [address] [place] [address] 01/22/2024 8:00 AM EDT Hospital Encounter ENDO [facility], Endoscopy Room [facility] [address] [place] [phone] Delfina Butcher, DO [address] [place] [address] 01/22/2024 8:00 AM EDT - 01/22/2024 9:00 AM EDT Surgery ENDO [facility], Endoscopy Room [facility] [address] [place] [phone] Delfina Butcher, DO [address] [place], [place] [address] COLONOSCOPY FLEXIBLE PROXIMAL DIAGNOSTIC 05/08/2024 1:30 PM EDT Office Visit Orthopaedics Spine Surgery, [facility] [address] [place] [address] Praneeth Elizalde MD [address] [place] [address] [place] [address] 05/08/2024 2:20 PM EDT Office Visit Family [facility] [address] [place] [address] Rema Carpenter CRNP [address] [place] [address] 11/23/2024 9:00 AM EDT Office Visit Family Practice [facility] [address] [place] [address] Henrik Campbell, [address] [place] [address] Scheduled Procedures Name Priority Associated Diagnoses Date/Ti [...] Completed 12/30/2014, 08/26/2011 Zoster Vaccines Completed 06/05/2022, 1012/2019, 05/30/2020, Additional history exists Influenza Vaccine (FLU [...] this encounter Medical Devices Implanted Type Area Instructor Robotics Device Identifier Shelf Expiration Date Model / Serial / Lot Lens Intraoc 19.5 - [id number] - [id number] Implanted:Qty: 1 on 12/07/2021 by Eulogio Barrios MD at OR [facility] Left: Eye BAUSCH & LOMB 07/25/2026 [id number] / [id number] / [id number] Lens Intraoc 19.5 - [id number] - [id number] Implanted:Qty: 1 on 12/19/2021 by Eulogio Barrios MD at OR [facility] Right: Eye BAUSCH & LOMB 07/25/2026 [id number] / [id number] / [id number] documented as of this encounter Advance Directives Documents on File Type Date Recorded Patient Nurse Research Expl anation Advance Directives and Living Will [...] Agen t (per Health Care Power of Parcel Post Truck Driver document) Care Teams Bed Bug Exterminator Relationship Specialty Start Date End Date Henrik Campbell DO [address] [place] [address] PCP - General Family Medicine 06/02/18 documented as of this encounter
--- OUTSIDE RECORDS SUMMARY | 2023-12-07 22:20 | External Medical Summary | Summary of Care ---
Author Name Unknown Organization [facility] Address [address] [facility] [place] [address] Phone [phone] Care Team Providers Care Neurosurgery Spine Physician Name Role Phone Henrik Campbell DO Primary Care Provider Encounter Details Date Type Department Care Team (Late st Contact Info) Description 12/06/2023 11:00 AM EDT Nurse Only Urology Woody Serrano [address] [place] [address] [place] [address] Nurse Woody Urologchandan Dior RN [address] [place] [address] [place] [phone] Arrived Allergies Active Allergy Reactions Criticality Noted Date [...] Budesonide 32 MCG/ACT Nasal Suspension Administer 1 [place] into nostril in the morning. 0 Active [...] mRNA, LNP-s, No Pre serve, 2-Dose Series ([employer]) 07/17/2021,11/22/2020,10/26/2020 Pneumococcal Conjugate Vacc, 13 Valent (Prevnar) [...] No 11/27/2023 documented as of this encounter Nursing Notes * Radha [place] LPN - 12/06/2023 11:07 AM EDT Patient's bladder was instilled 300 cc of NSS. Catheter balloon then deflated and catheter removed.Patient proceeded to void, spontaneously for approximately 20 cc of pink urine. Patient tolerated procedure well. Dr Edwards made aware, advised of CIC or return of [place]. Patient declined. Per provider OK to proceed home without catheter, return to ED if unable to void. Patient advised if unable tovoid for 5-6- hours should be evaluated. documented in this encounter Plan of Treatment Upcoming Encounters Date Type Department Care Team (Late st Contact Info) Description 12/12/2023 1:00 PM EDT Telemedicine Psychiatry, [place] [address] [place] [address] Princess Kwon MD [address] [place] [address] 12/16/2023 9:00 AM EDT Office Visit Urology, [facility] [address] [place] [address] Roberto Edwards MD [address] [place] [address] 12/16/2023 11:00 AM EDT Office Visit Family Practice [facility] [address] [place] [address] Henrik Campbell, [address] [place] [address] 01/22/2024 8:00 AM EDT Hospital Encounter [facility]O [facility], Endoscopy Room [facility] [address] [place] [phone] Delfina Butcher, [address] [place] [address] 01/22/2024 8:00 AM EDT - 01/22/2024 9:00 AM EDT Surgery [facility]O [facility], Endoscopy Room [facility] [address] [place] [phone] Delfina Butcher, DO [address] [place] [address] COLONOSCOPY FLEXIBLE PROXIMAL DIAGNOSTIC 05/08/2024 1:30 PM EDT Office Visit Orthopaedics Spine Surgery, [facility] [address] [place] [address] Praneeth Elizalde MD [address] [place] [address] [place] [address] 05/08/2024 2:20 PM EDT [facility] [address] [place] [address] Rema Carpenter CRNP [address] [place] [address] 11/23/2024 9:00 AM EDT [facility] [address] [place] [address] Henrik Campbell, [address] [place] [address] Scheduled Procedures Name Priority Associated Diagnoses Date/Ti [...] this encounter Medical Devices Implanted Type Area Product Architect Device Identifier Shelf Expiration Date Model / Serial / Lot Lens Intraoc 19.5 - [id number] - [id number] Implanted:Qty: 1 on 12/07/2021 by Eulogio Barrios MD at OR [facility] Left: Eye BAUSCH & LOMB 07/25/2026 [id number] / [id number] / [id number] Lens Intraoc 19.5 - [id number] - [id number] Implanted:Qty: 1 on 12/19/2021 by Eulogio Barrios MD at OR [facility] Right: Eye BAUSCH & LOMB 07/25/2026 [id number] / [id number] / [id number] documented as of this encounter Visit Diagnoses Diagnosis Urothelial carcinoma of kidney, 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) Disorder of kidney and ureter, unspecified Elevated prostate specific antigen (PSA) Hematuria, gross Gross hematuria Evans's esophagus History of colon polyps Personal history of colonic polyps documented in this encounter Advance Directives Documents on File Type Date Recorded Patient Geology Associate Expl anation Advance Directives and Living Will [...] Agen t (per Health Care Power of Product Architect document) Care Teams Neurosurgery Spine Physician Relationship Specialty Start Date End Date Henrik Campbell DO [address] [place] [address] PCP - General Family Medicine 06/02/18 documented as of this encounter
--- OUTSIDE RECORDS SUMMARY | 2023-12-07 22:21 | External Medical Summary ---
Author Name Unknown Address Unknown Organization K1F:LABORATORY [facility] - [address] [place] [address] Laboratory Report Ordering Provider Test Date Status LUCIA GRANT 11/30/2023 04:35:00 Final Observation Date Value Abnormality Reference (Units ) Status BUN 11/30/2023 04:35:00 24 Above high normal 6-20 (mg/dL) Final Creatinine 11/30/2023 04:35:00 1.4 Above high normal 0.6-1.2 (mg/dL) Final Glomerular filtration rate/1.73 sq M.predicted [Volume Rate/Area] in Serum, Plasma or Blood by Creatinine-based formula (CKD-EPI) 11/30/2023 04:35:00 52 Below low normal >=60 (mL/min) Final eGFR is calculated based on the CKD-EPI 2020 equation Sodium 11/30/2023 04:35:00 137 135-146 (m mol/L) Final Potassium 11/30/2023 04:35:00 3.9 3.5-5.1 (m mol/L) Final Cl 11/30/2023 04:35:00 97 Below low normal 98- 107 (mmol/L) Final CO2 11/30/2023 04:35:00 25 22-32 (mmo l/L) Final Anion gap 11/30/2023 04:35:00 15 7-15 (mmol /L) Final Glucose 11/30/2023 04:35:00 135 Above high normal 70 -120 (mg/dL) Final Calcium 11/30/2023 04:35:00 8.4 8.4-10.2 ( mg/dL) Final Performing Location LABORATORY [facility] - [address] [place] [address]
--- OUTSIDE RECORDS SUMMARY | 2023-12-07 22:21 | External Medical Summary ---
Author Name Unknown Address Unknown Organization K1F:LABORATORY [facility] - [address] [place] [address] Laboratory Report Ordering Provider Test Date Status LUCIA GRANT 11/29/2023 05:16:00 Final Observation Date Value Abnormality Reference (Units ) Status WBC, Total 11/29/2023 05:16:00 14.83 Above high normal 4.00-10.80 (K/uL) Final RBC 11/29/2023 05:16:00 4.50 4.50-5.25 (M/uL) Final Hemoglobin 11/29/2023 05:16:00 14.5 14.0-16.8 (g/dL) Final HCT 11/29/2023 05:16:00 42.5 40.0-48.4 (%) Final MCV 11/29/2023 05:16:00 94.4 82.0-99.5 (fL) Final MCH 11/29/2023 05:16:00 32.2 27.0-34.0 (pg) Final MCHC 11/29/2023 05:16:00 34.1 32.0-36.0 (g/dL) Final RDW 11/29/2023 05:16:00 12.8 11.5-15.5 (%) Final Platelets 11/29/2023 05:16:00 221 140-400 (K/uL) Final MPV 11/29/2023 05:16:00 9.0 6.6-11.1 (fL) Final Nucleated erythrocytes/100 leukocytes [Ratio] in Blood by Automated count 11/29/2023 05:16:00 0 <=0 (/100 WBCs) Final Performing Location LABORATORY [facility] - [address] [place] [address]
--- OUTSIDE RECORDS SUMMARY | 2023-12-07 22:21 | External Medical Summary ---
Author Name Unknown Address Unknown Organization K1F:LABORATORY [facility] - [address] [place] [address] Laboratory Report Ordering Provider Test Date Status LUCIA GRANT 12/01/2023 06:03:00 Final Observation Date Value Abnormality Reference (Units ) Status BUN 12/01/2023 06:03:00 37 Above high normal 6-20 (mg/dL) Final Creatinine 12/01/2023 06:03:00 1.5 Above high normal 0.6-1.2 (mg/dL) Final Glomerular filtration rate/1.73 sq M.predicted [Volume Rate/Area] in Serum, Plasma or Blood by Creatinine-based formula (CKD-EPI) 12/01/2023 06:03:00 47 Below low normal >=60 (mL/min) Final eGFR is calculated based on the CKD-EPI 2020 equation Sodium 12/01/2023 06:03:00 136 135-146 (m mol/L) Final Potassium 12/01/2023 06:03:00 3.9 3.5-5.1 (m mol/L) Final Cl 12/01/2023 06:03:00 99 98-107 (mm ol/L) Final CO2 12/01/2023 06:03:00 25 22-32 (mmo l/L) Final Anion gap 12/01/2023 06:03:00 12 7-15 (mmol /L) Final Glucose 12/01/2023 06:03:00 126 Above high normal 70 -120 (mg/dL) Final Calcium 12/01/2023 06:03:00 8.7 8.4-10.2 ( mg/dL) Final Performing Location LABORATORY [facility] - [address] [place] [address]
--- OUTSIDE RECORDS SUMMARY | 2023-12-07 22:21 | External Medical Summary ---
Author Name Unknown Address Unknown Organization K1F:LABORATORY [facility] - [address] [place] [address] Laboratory Report Ordering Provider Test Date Status LUCIA GRANT 12/02/2023 05:10:00 Final Observation Date Value Abnormality Reference (Units ) Status BUN 12/02/2023 05:10:00 29 Above high normal 6-20 (mg/dL) Final Creatinine 12/02/2023 05:10:00 1.3 Above high normal 0.6-1.2 (mg/dL) Final Glomerular filtration rate/1.73 sq M.predicted [Volume Rate/Area] in Serum, Plasma or Blood by Creatinine-based formula (CKD-EPI) 12/02/2023 05:10:00 56 Below low normal >=60 (mL/min) Final eGFR is calculated based on the CKD-EPI 2020 equation Sodium 12/02/2023 05:10:00 137 135-146 (m mol/L) Final Potassium 12/02/2023 05:10:00 3.5 3.5-5.1 (m mol/L) Final Cl 12/02/2023 05:10:00 98 98-107 (mm ol/L) Final CO2 12/02/2023 05:10:00 26 22-32 (mmo l/L) Final Anion gap 12/02/2023 05:10:00 13 7-15 (mmol /L) Final Glucose 12/02/2023 05:10:00 99 70-120 (mg /dL) Final Calcium 12/02/2023 05:10:00 8.3 Below low normal 8.4 -10.2 (mg/dL) Final Performing Location LABORATORY [facility] - [address] [place] [address]
--- OUTSIDE RECORDS SUMMARY | 2023-12-07 22:21 | External Medical Summary | Summary of Care ---
Author Name Unknown Organization [facility] Address [address] [facility] [place] [address] Phone [phone] Care Team Providers Care Pharmaceutical Sales Specialist Name Role Phone Henrik Campbell DO Primary Care Provider Encounter Details Date Type Department Care Team (Late st Contact Info) Description 12/04/2023 Telephone [facility] Urology [address] [facility] [place] [address] Yumiko Zabala PA-C [address] [place] [address] [place] [address] Allergies Active Allergy Reactions Criticality Noted Date Comments Azelastine Unknown 02/01/2021 Onabotulinumtoxina Other (Please comment) High 01/20/2021 Swallowing difficulty after injection documented as of this encounter (statuses as of 12/04/2023) Medications Medication Sig Dispensed Refills Start Date End Date Status Mirtazapine 15 MG Oral Tablet (Remeron) Take [...] the morning. 15 Capsule 0 4 Active VITAMIN B-12 100 MCG PO TABS Take 1 Tablet by mouth daily with dinner. 0 Suspended VITAMIN D 1000 UNITS PO CAPS Take 1 Capsule by mouth daily with dinner. 0 Suspended albuterol (PROAIR HFA) 108 (90 BASE) MCG/ACT inhaler Inhale 2 Puffs by mouth every 4 hours as needed for Cough or Wheezing. With spacer 1 Inhaler 1 8 Suspended Additional Information Sildenafil Citrate 100 MG Oral Tablet TAKE ONE TABLET BY MOUTH NEEDED FOR ED 0 1 Suspended Meclizine HCl 25 MG Oral Tablet (Antivert)Indicatio ns:Hospital discharge follow-up,Nausea Take 1 Tablet by mouth 3 times a day as needed for Dizziness. 60 Tablet 1 2 Suspended Additional Information Esomeprazole Magnesium 20 MG Oral Capsule Delayed Release (NexIUM) Take by mouth 1 Capsule daily before breakfast . 90 Capsule 3 2 Suspended Additional Information Patient taking differently: 40 mgOral BEFORE BREAKFAST, Reported on 11/08/2022 Budesonide 32 MCG/ACT Nasal Suspension Administer 1 [place] into nostril in the morning. 0 Suspended Metaxalone 800 MG Oral Tablet Take one tablet by mouth at bedtime and 1/2 to one tablet up to an additional two times daily as needed for neck and head pain 90 Tablet 11 3 Suspended Additional Information Rimegepant Sulfate 75 MG Oral Tablet Disintegrating 75 mg. 0 3 Suspended Propranolol HCl 10 MG Oral Tablet (Inderal) Take 1.5 tablet at 6 am and 1.5 tablet at 2 pm daily 90 Tablet 5 3 Suspended Additional Information buPROPion HCl 100 MG Oral Tablet (Wellbutrin) Take 0.5 Tablets by mouth in the morning and 0.5 Tablets before bedtime. 30 Tablet 5 3 Suspended Additional Information LORazepam 0.5 MG Oral Tablet (Ativan) Take 0.5 Tablets by mouth every night at bedtime. NO EARLY REFILLS 15 Tablet 5 3 Suspended Additional Information hydrOXYzine HCl 25 MG Oral Tablet Take 1 Tablet by mouth daily as needed for Anxiety. 0 3 Suspended Finasteride 5 MG Oral Tablet (Proscar)Indication s:BPH with obstruction/lower urinary tract symptoms Take 1 Tablet by mouth in the morning. 90 Tablet 3 4 Suspended Additional Information Lisinopril-hydroCHL OROthiazide 20-12.5 MG Oral Tablet TAKE 1 TABLET BY MOUTH ONCE DAILY 90 Tablet 1 4 Suspended Additional Information Tamsulosin HCl 0.4 MG Oral Capsule (Flomax)Indications :BPH with obstruction/lower urinary tract symptoms TAKE ONE CAPSULE BY MOUTH IN THE MORNING 90 Capsule 3 4 Suspended Additional Information Triamcinolone Acetonide 0.1 % External Ointment (Aristocort)Indicat ions:Other atopic dermatitis Apply topically to affected area 2 times a day. To affected area. 454 g 3 4 Suspended Additional Information Indomethacin ER 75 MG Oral Capsule Extended Release (Indocin SR) Take 1 Capsule by mouth in the morning. 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 documented in this encounter Plan of Treatment Upcoming Encounters Date Type Department Care Team (Late st Contact Info) Description 12/06/2023 10:00 AM EDT Nurse Only Urology [place] Serrano [address] [place] [address] [place] [address] Nurse [place] Urology EDYTA Dior [address] [place] [address] [place] [address] 12/09/2023 3:15 PM EDT Office Visit Urology, [facility] [address] [facility] [place] [address] Roberto Edwards MD [address] [place] [address] [place] [address] 12/12/2023 1:00 PM EDT Telemedicine Psychiatry, [place] [address] [place] [address] Pirncess Kwon MD [address] [place] [address] 01/22/2024 8:00 AM EDT Hospital Encounter ENDO [facility], Endoscopy Room [facility] [address] [place], [place] [phone] Delfina Butcher, DO [address] [place] [address] 01/22/2024 8:00 AM EDT - 01/22/2024 9:00 AM EDT Surgery ENDO [facility], Endoscopy Room [facility] [address] [place] [id number] Delfina Butcher, DO [address] [place] [address] COLONOSCOPY FLEXIBLE PROXIMAL DIAGNOSTIC 05/08/2024 1:30 PM EDT [facility] [address] [place] [address] Praneeth Elizalde MD [address] [place] [address] [place] [address] 05/08/2024 2:20 PM EDT Office Visit [facility] [address] [place] [address] Rema Carpenter CRNP [address] [place] [address] 11/23/2024 9:00 AM EDT Office Visit [facility] [address] [place] [address] Henrik Campbell DO [address] [place] [address] Scheduled Procedures Name Priority Associated Diagnoses Date/Ti [...] this encounter Medical Devices Implanted Type Area Mechanical Specialist Device Identifier Shelf Expiration Date Model / Serial / Lot Lens Intraoc 19.5 - [id number] - [id number] Implanted:Qty: 1 on 12/07/2021 by Eulogio Barrios MD at OR [facility] Left: Eye [employer] 07/25/2026 [id number] / [id number] / [id number] Lens Intraoc 19.5 - [id number] - [id number] Implanted:Qty: 1 on 12/19/2021 by uElogio Barrios MD at OR [facility] Right: Eye [employer]OM[employer] 07/25/2026 [id number] / [id number] / [id number] documented as of this encounter Advance Directives Documents on File Type Date Recorded 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
--- OUTSIDE RECORDS SUMMARY | 2023-12-07 22:21 | External Medical Summary ---
Author Name Unknown Address Unknown Organization K1F:LABORATORY [facility] - [address] [place] [address] Laboratory Report Ordering Provider Test Date Status LUCIA GRANT 12/04/2023 04:46:00 Final Observation Date Value Abnormality Reference (Units ) Status WBC, Total 12/04/2023 04:46:00 9.75 4.00-10.80 (K/uL) Final RBC 12/04/2023 04:46:00 4.06 4.50-5.25 (M/uL) Final Hemoglobin 12/04/2023 04:46:00 12.7 Below low normal 14.0-16.8 (g/dL) Final HCT 12/04/2023 04:46:00 37.9 Below low normal 40.0-48.4 (%) Final MCV 12/04/2023 04:46:00 93.3 82.0-99.5 (fL) Final MCH 12/04/2023 04:46:00 31.3 27.0-34.0 (pg) Final MCHC 12/04/2023 04:46:00 33.5 32.0-36.0 (g/dL) Final RDW 12/04/2023 04:46:00 12.5 11.5-15.5 (%) Final Platelets 12/04/2023 04:46:00 228 140-400 (K/uL) Final MPV 12/04/2023 04:46:00 9.6 6.6-11.1 (fL) Final Nucleated erythrocytes/100 leukocytes [Ratio] in Blood by Automated count 12/04/2023 04:46:00 0 <=0 (/100 WBCs) Final Performing Location LABORATORY [facility] - [address] [place] [address]
--- OUTSIDE RECORDS SUMMARY | 2023-12-07 22:21 | External Medical Summary ---
Author Name Unknown Address Unknown Organization K1F:LABORATORY [facility] - [address] [place] [address] Laboratory Report Ordering Provider Test Date Status LUCIA GRANT 11/30/2023 04:35:00 Final Observation Date Value Abnormality Reference (Units ) Status WBC, Total 11/30/2023 04:35:00 15.87 Above high normal 4.00-10.80 (K/uL) Final RBC 11/30/2023 04:35:00 4.77 4.50-5.25 (M/uL) Final Hemoglobin 11/30/2023 04:35:00 15.3 14.0-16.8 (g/dL) Final HCT 11/30/2023 04:35:00 45.0 40.0-48.4 (%) Final MCV 11/30/2023 04:35:00 94.3 82.0-99.5 (fL) Final MCH 11/30/2023 04:35:00 32.1 27.0-34.0 (pg) Final MCHC 11/30/2023 04:35:00 34.0 32.0-36.0 (g/dL) Final RDW 11/30/2023 04:35:00 12.9 11.5-15.5 (%) Final Platelets 11/30/2023 04:35:00 256 140-400 (K/uL) Final MPV 11/30/2023 04:35:00 9.2 6.6-11.1 (fL) Final Nucleated erythrocytes/100 leukocytes [Ratio] in Blood by Automated count 11/30/2023 04:35:00 0 <=0 (/100 WBCs) Final Performing Location LABORATORY [facility] - [address] [place] [address]
--- OUTSIDE RECORDS SUMMARY | 2023-12-07 22:21 | External Medical Summary ---
Author Name Unknown Address Unknown Organization K1F:LABORATORY [facility] - [facility] [address] [place] [address] Laboratory Report Ordering Provider Test Date Status LUCIA GRANT 12/01/2023 06:03:00 Final Observation Date Value Abnormality Reference (Units ) Status WBC, Total 12/01/2023 06:03:00 14.30 Above high normal 4.00-10.80 (K/uL) Final RBC 12/01/2023 06:03:00 4.31 4.50-5.25 (M/uL) Final Hemoglobin 12/01/2023 06:03:00 13.9 Below low normal 14.0-16.8 (g/dL) Final HCT 12/01/2023 06:03:00 40.8 40.0-48.4 (%) Final MCV 12/01/2023 06:03:00 94.7 82.0-99.5 (fL) Final MCH 12/01/2023 06:03:00 32.3 27.0-34.0 (pg) Final MCHC 12/01/2023 06:03:00 34.1 32.0-36.0 (g/dL) Final RDW 12/01/2023 06:03:00 13.0 11.5-15.5 (%) Final Platelets 12/01/2023 06:03:00 241 140-400 (K/uL) Final MPV 12/01/2023 06:03:00 9.1 6.6-11.1 (fL) Final Nucleated erythrocytes/100 leukocytes [Ratio] in Blood by Automated count 12/01/2023 06:03:00 0 <=0 (/100 WBCs) Final Performing Location LABORATORY [facility] - [address] [place] [address]
--- OUTSIDE RECORDS SUMMARY | 2023-12-07 22:21 | External Medical Summary | Summary of Care ---
Author Name Unknown Organization [facility] Address [address] [facility] [place] [address] Phone [phone] Care Team Providers Care Molecular Spectroscopist Name Role Phone Henrik Campbell DO Primary Care Provider Encounter Details Date Type Department Care Team (Late st Contact Info) Description 12/04/2023 Telephone [facility] Urology [address] [facility] [place] [address] Yumiko Zabala PA-C [...] at bedtime. 30 Tablet 5 11/27/2023 Active Docusate Sodium 100 MG Oral Capsule (Colace) Take 1 Capsule by mouth in the morning and 1 Capsule before bedtime. 30 Capsule 1 12/04/2023 Active Metoclopramide HCl 10 MG Oral Tablet (Reglan) Take 1 Tablet by mouth every 6 hours as needed for Nausea. 30 Tablet 0 12/04/2023 Active Ondansetron 4 MG Oral Tablet Disintegrating (Zofran) Dissolve 1 Tablet on tongue every 6 hours as needed for Nausea. 30 Tablet 1 12/04/2023 Active oxyCODONE HCl 5 MG Oral Tablet (Oxy IR) Take 1 Tablet by mouth every 6 hours as needed for Pain, Severe. 15 Tablet 0 12/04/2023 Active VITAMIN B-12 100 MCG PO TABS Take 1 Tablet by mouth daily with dinner. 0 Suspended VITAMIN D 1000 UNITS PO CAPS Take 1 Capsule by mouth daily with dinner. 0 Suspended albuterol (PROAIR HFA) 108 (90 BASE) MCG/ACT inhaler Inhale 2 Puffs by mouth every 4 hours as needed for Cough or Wheezing. With spacer 1 Inhaler 1 07/30/2018 Suspended Additional Information Sildenafil Citrate 100 MG Oral Tablet TAKE ONE TABLET BY MOUTH NEEDED FOR ED 0 09/14/2020 Suspended Meclizine HCl 25 MG Oral Tablet (Antivert)Indicatio ns:Hospital discharge follow-up,Nausea Take 1 Tablet by mouth 3 times a day as needed for Dizziness. 60 Tablet 1 09/04/2021 Suspended Additional Information Esomeprazole Magnesium 20 MG Oral Capsule Delayed Release (NexIUM) Take by mouth 1 Capsule daily before breakfast . 90 Capsule 3 10/12/2021 Suspended Additional Information Patient taking differently: 40 mgOral BEFORE BREAKFAST, Reported on 11/08/2022 Budesonide 32 MCG/ACT Nasal Suspension Administer 1 [place] into nostril in the morning. 0 Suspended Metaxalone 800 MG Oral Tablet Take one tablet by mouth at bedtime and 1/2 to one tablet up to an additional two times daily as needed for neck and head pain 90 Tablet 11 12/14/2022 Suspended Additional Information Rimegepant Sulfate 75 MG Oral Tablet Disintegrating 75 mg. 0 05/14/2023 Suspended Propranolol HCl 10 MG Oral Tablet (Inderal) Take 1.5 tablet at 6 am and 1.5 tablet at 2 pm daily 90 Tablet 5 07/03/2023 Suspended Additional Information buPROPion HCl 100 MG Oral Tablet (Wellbutrin) Take 0.5 Tablets by mouth in the morning and 0.5 Tablets before bedtime. 30 Tablet 5 07/03/2023 Suspended Additional Information LORazepam 0.5 MG Oral Tablet (Ativan) Take 0.5 Tablets by mouth every night at bedtime. NO EARLY REFILLS 15 Tablet 5 07/03/2023 Suspended Additional Information hydrOXYzine HCl 25 MG Oral Tablet Take 1 Tablet by mouth daily as needed for Anxiety. 0 07/03/2023 Suspended Finasteride 5 MG Oral Tablet (Proscar)Indication s:BPH with obstruction/lower urinary tract symptoms Take 1 Tablet by mouth in the morning. 90 Tablet 3 09/05/2023 Suspended Additional Information Lisinopril-hydroCHL OROthiazide 20-12.5 MG Oral Tablet TAKE 1 TABLET BY MOUTH ONCE DAILY 90 Tablet 1 11/02/2023 Suspended Additional Information Tamsulosin HCl 0.4 MG Oral Capsule (Flomax)Indications :BPH with obstruction/lower urinary tract symptoms TAKE ONE CAPSULE BY MOUTH IN THE MORNING 90 Capsule 3 11/05/2023 Suspended Additional Information Triamcinolone Acetonide 0.1 % External Ointment (Aristocort)Indicat ions:Other atopic dermatitis Apply topically to affected area 2 times a day. To affected area. 454 g 3 11/11/2023 Suspended Additional Information Indomethacin ER 75 MG Oral Capsule Extended Release (Indocin SR) Take 1 Capsule by mouth in the morning. 30 Capsule 5 11/11/2023 Suspended Additional Information documented as of this encounter (statuses as [...] mRNA, LNP-s, No Pre serve, 2-Dose Series (Xcalia) 07/17/2021,11/22/2020,10/26/2020 Pneumococcal Conjugate Vacc, 13 Valent (Prevnar) [...] Description 12/06/2023 10:00 AM EDT Nurse Only UrologWoody Lau [address] [place] [address] [place] [address] Nurse [place]y Urologchandan Dior RN [address] [place] [address] [place] [address] 12/09/2023 3:15 PM EDT Office Visit Urology, [facility] [address] [place] [address] Roberto Edwards MD [address] [place] [address] [place] [address] 12/12/2023 1:00 PM ED[facility] [address] [place] [address] Princess Kwon MD [address] [place] [address] 01/22/2024 8:00 AM EDT Hospital Encounter ENDO [facility], Endoscopy Room [facility] [address] [place] [phone] Delfina Butcher, DO [address] [place] [address] 01/22/2024 8:00 AM EDT - 01/22/2024 9:00 AM EDT Surgery ENDO [facility], Endoscopy Room [facility] [address] [place] [phone] Delfina Butcher, DO [address] [place] [address] COLONOSCOPY FLEXIBLE PROXIMAL DIAGNOSTIC 05/08/2024 1:30 PM EDT Office Visit Orthopaedics Spine Surgery, [facility] [address] [place] [address] Praneeth Elizalde MD [address] [place] [address] [place] [address] 05/08/2024 2:20 PM EDT Office Visit [facility] [address] [place] [address] Rema Carpenter CRNP [address] [place] [address] 11/23/2024 9:00 AM EDT Office Visit [facility] [address] [place] [address] Henrik Campbell DO [address] [place] [address] Scheduled Procedures Name Priority Associated Diagnoses Date/Ti [...] 07/23/2018, Additional history exists HbA1c 11/05/2024 11/06/2023, 07/03/2023, 05/28/2022, Additional history exists GFR 12/03/2024 12/04/2023, [...] this encounter Medical Devices Implanted Type Area Hazardous Substances Engineer Device Identifier Shelf Expiration Date Model / Serial / Lot Lens Intraoc 19.5 - [id number] - [id number] Implanted:Qty: 1 on 12/07/2021 by Eulogio Barrios MD at OR [facility] Left: Eye [employer]OMB 07/25/2026 [id number] / [id number] / [id number] Lens Intraoc 19.5 - [id number] - [id number] Implanted:Qty: 1 on 12/19/2021 by Eulogio Barrios MD at OR [facility] Right: Eye [employer]CH [employer]OMB 07/25/2026 [id number] / [id number] / [id number] documented as of this encounter Advance Directives Documents on File Type Date Recorded Patient Waste Transportation Technician Expl anation Advance Directives and Living Will [...] Agents on File Name Relationship Healthcare Agent [facility] Communication Roma Gutiérrez Spouse Health Care Agen t (per Health Care Power of Incident Response Coordinator document) Care Teams Molecular Spectroscopist Relationship Specialty Start Date End Date Henrik Campbell DO [address] [place] [address] PCP - General Family Medicine 06/02/18 documented as of this encounter
--- OUTSIDE RECORDS SUMMARY | 2023-12-07 22:21 | External Medical Summary ---
Author Name Unknown Address Unknown Organization K1F:LABORATORY [facility] - [address] [place] [address] Laboratory Report Ordering Provider Test Date Status LUCIA GRANT 12/01/2023 06:03:00 Final Observation Date Value Abnormality Reference (Units ) Status SYNC LEUKOCYTES IN BLOOD BY AUTOMATED COUNT 12/01/2023 06:03:00 14.30 Above high normal 4.00-10.80 (K/uL) Final Segs 12/01/2023 06:03:00 79.3 Above high normal 40.0-75.0 (%) Final Lymphs % 12/01/2023 06:03:00 9.3 Below low normal 18.0-42.0 (%) Final Monos 12/01/2023 06:03:00 9.4 1.0-11.0 (%) Final Eosinophils 12/01/2023 06:03:00 0.9 0.0-6.0 (%) Final Basos 12/01/2023 06:03:00 0.3 0.0-2.0 (%) Final Immature Granulocyte, Percent 12/01/2023 06:03:00 0.8 0.0-2.0 (%) Final Absolute Segs 12/01/2023 06:03:00 11.34 Above high normal 1.80-7.70 (K/uL) Final Lymphs, absolute 12/01/2023 06:03:00 1.33 1.00-4.80 (K/ul) Final Monos, Abs 12/01/2023 06:03:00 1.34 Above high normal 0.00-1.10 (K/uL) Final Eos, Abs 12/01/2023 06:03:00 0.13 0.00-0.70 (K/uL) Final Basos, Abs 12/01/2023 06:03:00 0.04 0.00-0.20 (K/uL) Final Immature Granulocytes, Number 12/01/2023 06:03:00 0.12 0.00-0.20 (K/uL) Final Performing Location LABORATORY [facility] - [facility] [address]. [place] [address]
--- OUTSIDE RECORDS SUMMARY | 2023-12-07 22:21 | External Medical Summary ---
Author Name Unknown Address Unknown Organization K1F:LABORATORY [facility] - [address] [place] [address] Laboratory Report Ordering Provider Test Date Status LUCIA GRANT 12/02/2023 05:10:00 Final Observation Date Value Abnormality Reference (Units ) Status WBC, Total 12/02/2023 05:10:00 10.91 Above high normal 4.00-10.80 (K/uL) Final RBC 12/02/2023 05:10:00 4.17 4.50-5.25 (M/uL) Final Hemoglobin 12/02/2023 05:10:00 13.0 Below low normal 14.0-16.8 (g/dL) Final HCT 12/02/2023 05:10:00 38.7 Below low normal 40.0-48.4 (%) Final MCV 12/02/2023 05:10:00 92.8 82.0-99.5 (fL) Final MCH 12/02/2023 05:10:00 31.2 27.0-34.0 (pg) Final MCHC 12/02/2023 05:10:00 33.6 32.0-36.0 (g/dL) Final RDW 12/02/2023 05:10:00 12.8 11.5-15.5 (%) Final Platelets 12/02/2023 05:10:00 226 140-400 (K/uL) Final MPV 12/02/2023 05:10:00 9.6 6.6-11.1 (fL) Final Nucleated erythrocytes/100 leukocytes [Ratio] in Blood by Automated count 12/02/2023 05:10:00 0 <=0 (/100 WBCs) Final Performing Location LABORATORY [facility] - [address] [place] [address]
--- OUTSIDE RECORDS SUMMARY | 2023-12-07 22:21 | External Medical Summary ---
Author Name Unknown Address Unknown Organization K1F:LABORATORY [facility] - [address] [place] [address] [address]. [place] [address] Laboratory Report Ordering Provider Test Date Status LUCIA GRANT 12/03/2023 04:37:00 Final Observation Date Value Abnormality Reference (Units ) Status WBC, Total 12/03/2023 04:37:00 8.60 4.00-10.80 (K/uL) Final RBC 12/03/2023 04:37:00 4.05 4.50-5.25 (M/uL) Final Hemoglobin 12/03/2023 04:37:00 13.0 Below low normal 14.0-16.8 (g/dL) Final HCT 12/03/2023 04:37:00 38.0 Below low normal 40.0-48.4 (%) Final MCV 12/03/2023 04:37:00 93.8 82.0-99.5 (fL) Final MCH 12/03/2023 04:37:00 32.1 27.0-34.0 (pg) Final MCHC 12/03/2023 04:37:00 34.2 32.0-36.0 (g/dL) Final RDW 12/03/2023 04:37:00 12.6 11.5-15.5 (%) Final Platelets 12/03/2023 04:37:00 229 140-400 (K/uL) Final MPV 12/03/2023 04:37:00 9.5 6.6-11.1 (fL) Final Nucleated erythrocytes/100 leukocytes [Ratio] in Blood by Automated count 12/03/2023 04:37:00 0 <=0 (/100 WBCs) Final Performing Location LABORATORY [facility] - [address] [place] [place] [address]
--- OUTSIDE RECORDS SUMMARY | 2023-12-07 22:21 | External Medical Summary | Summary of Care ---
Author Name Unknown Organization [facility] Address [address] [facility] [place] [address] Phone [phone] Care Team Providers Care Parking Meter Collector Name Role Phone Campbell Henrik Brandgabbi Primary Care Provider Reason for Visit * Reason Onset Date Comments Advice 12/03/2023 Encounter Details Date Type Department Care Team (Late st Contact Info) Description 12/03/2023 Telephone Urology [place] S[place]ano [address] [place] [address] [place] [phone] Roberto Edwards MD [address] [place] [address] [place] [address] Advice Allergies Active Allergy Reactions Criticality Noted Date Comments Azelastine Unknown 02/01/2021 Onabotulinumtoxina Other (Please comment) High 01/20/2021 Swallowing difficulty after injection documented as of this encounter (statuses as of 12/03/2023) Medications Medication Sig Dispensed Refills Start Date End Date Status Mirtazapine 15 MG Oral Tablet (Remeron) Take 1 Tablet by mouth at bedtime. 30 Tablet 5 11/27/2023 Active VITAMIN B-12 100 MCG PO TABS [...] 1 Inhaler 1 07/30/2018 Suspended Additional Information zoster vac recomb adjuvanted (SHINGRIX) 50 MCG/0.5ML injectionIndication s:Need for vaccination for zoster Inject 0.5 mL into a large muscle now and repeat dose in 60 to 180 days 1 Each 1 05/09/2020 Suspended Additional Information Patient not taking.Reported on 08/07/2023 Sildenafil Citrate 100 MG Oral Tablet TAKE [...] Budesonide 32 MCG/ACT Nasal Suspension Administer 1 [place] into nostril in the morning. 0 Suspended Emgality 120 MG/ML Subcutaneous Solution Auto-injector (Galcanezumab-gn) Inject 120 mg (1mL) under skin as directed once a month. 1 mL 11 08/30/2022 Suspended Additional Information Patient not taking.Reported on 08/09/2023 oxyCODONE HCl 5 MG Oral Capsule (Oxy IR) Take 1 Capsule by mouth every 4 hours as needed. 0 Suspended Metaxalone 800 MG Oral Tablet Take one tablet by mouth at bedtime and 1/2 to one tablet up to an additional two times daily as needed for neck and head pain 90 Tablet 11 12/14/2022 Suspended Additional Information Rimegepant Sulfate 75 MG Oral Tablet Disintegrating 75 mg. 0 05/14/2023 Suspended Ondansetron HCl 4 MG Oral Tablet (Zofran) 1 Tablet. 0 10/20/2022 Suspended Propranolol HCl 10 MG Oral Tablet [...] as needed for Anxiety. 0 07/03/2023 Suspended Sulfamethoxazole-Tr imethoprim 800-160 MG Oral Tablet (Bactrim DS) Take 1 Tablet by mouth in the morning and 1 Tablet before bedtime. 10 Tablet 0 09/02/2023 Suspended Additional Information Patient not taking.Reported on 11/13/2023 Phenazopyridine HCl 200 MG Oral Tablet (Pyridium) Take 1 Tablet by mouth 3 times a day as needed for Other (bladder spasms). After meals. 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 Reviewed Dr. Edwards's note from this morning advising he needs to tolerate clear liquids, food tomorrow. She verbalized understanding. Was wondering if catheter can be reviewed early (this they are discharged tomorrow). Informedwife catheter has to be in for a minimal of 10 days, can be removed at post op on 12/08 so they don't have to make an extra trip to [place], if they wish. She is going to discuss that with patient, see if he'd be willing to do that. Will call if anything further is needed. * Telephone Encounter - Hina Cuello OSA - 12/03/2023 9:30 AM EDT PT's calling she hasn't heard anything from since pt's surgery and what her is saying she is unsure of. Asking to please call her. documented in this encounter Plan of Treatment Upcoming Encounters Date Type Department Care Team (Late st Contact Info) Description 12/06/2023 10:00 AM EDT Nurse Only [place] Sampson [address] [place] [address] [place] [address] [place], Nurse Jarred Dior RN [address] [place] [address] [place] [address] 12/09/2023 3:15 PM EDT Office Visit Urology, [facility] [address] [place] [address] Roberto Edwards MD [address] [place] [address] [place] [phone] 12/12/2023 1:00 PM EDT Telemedicine [facility] [address] [place] [address] Princess Kwon MD [address] [place] [address] 01/22/2024 8:00 AM EDT Hospital Encounter ENDO [facility], Endoscopy Room [facility] [address] [place] [phone] Delfina Butcher, DO [address] [place] [address] 01/22/2024 8:00 AM EDT - 01/22/2024 9:00 AM EDT Surgery ENDO [facility], Endoscopy Room [facility] [address] [place] [phone] Delfina Butcher, DO [address] [place] [address] COLONOSCOPY FLEXIBLE PROXIMAL DIAGNOSTIC 05/08/2024 1:30 PM EDT Office Visit Orthopaedics Spine Surgery, [facility] [address] [place] [address] Praneeth Elizalde MD [address] [place] [address] [place] [address] 05/08/2024 2:20 PM EDT Office Visit Family Practice [facility] [address] [place] [address] Rema Caprenter CRNP [address] [place] [address] 11/23/2024 9:00 AM EDT Office Visit [facility] [address] [place] [address] Henrik Campbell DO [address] [place] [address] Scheduled Procedures Name Priority Associated Diagnoses Date/Ti [...] 11/06/2023, 02/24, 05/28/2022, Additional history exists GFR 12/02/2024 12/03/2023, 040 03/2024, 12/01/2023, Additional history exists Albumin/Creatinine Ratio 11/05/2026 024, [...] this encounter Medical Devices Implanted Type Area Energy Derivatives Trader Device Identifier Shelf Expiration Date Model / Serial / Lot Lens Intraoc 19.5 - [id number] - [id number] Implanted:Qty: 1 on 12/07/2021 by Eulogio Barrios MD at OR [facility] Left: Eye [employer]CH [employer] LOMB 07/25/2026 [id number] / [id number] / [id number] Lens Intraoc 19.5 - [id number] - [id number] Implanted:Qty: 1 on 12/19/2021 by Eulogio Barrios MD at OR [facility] Right: Eye [employer]CH [employer] LOMB 07/25/2026 [id number] / [id number] / [id number] documented as of this encounter Advance Directives Documents on File Type Date Recorded 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
--- OUTSIDE RECORDS SUMMARY | 2023-12-07 22:21 | External Medical Summary | Summary of Care ---
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] Procedures LAPARO REMOVE K/URETER LAPAROSCOPIC NEPHRECTOMY TOTAL URETERECTOMY Referral ID Status Reason Start Date Expiration Date Visits Re quested Visits Authorized [id number] Encounter Details Date Type Department Care Team (Latest Contact Info) Description 11/27/2023 6:35 AM EDT - 12/04/2023 6:54 PM EDT Hospital Encounter [facility] 6th Floor [address] [facility] [place] [address] Roberto Edwards MD 27 [facility] [address] [place] [address] Various: [email or web address] Discharge Disposition: Home with Services Allergies Active Allergy Reactions Criticality Noted Date [...] Active Meclizine HCl 25 MG Oral Tablet (Antivert)Indicati ons:Hospital discharge follow-up,Nausea Take 1 Tablet by mouth 3 times a day as needed for Dizziness. 60 Tablet 1 2 Active Esomeprazole Magnesium 20 MG Oral Capsule Delayed Release (NexIUM) Take by mouth 1 Capsule daily before breakfast . 90 Capsule 3 2 Active Additional Information Patient taking differently: 40 mgOral BEFORE BREAKFAST, Reported on 11/08/2022 Budesonide 32 MCG/ACT Nasal Suspension Administer 1 [place] into nostril in the morning. 0 Active [...] 3 Active Finasteride 5 MG Oral Tablet (Proscar)Indicatio ns:BPH with obstruction/lower urinary tract symptoms Take 1 Tablet by mouth in the morning. 90 Tablet 3 4 Active Lisinopril-hydroCH LOROthiazide 20-12.5 MG Oral Tablet TAKE 1 TABLET BY MOUTH ONCE DAILY 90 Tablet 1 4 Active Tamsulosin HCl 0.4 MG Oral Capsule (Flomax)Indication s:BPH with obstruction/lower urinary tract symptoms TAKE ONE CAPSULE BY MOUTH IN THE MORNING 90 Capsule 3 4 Active Triamcinolone Acetonide 0.1 % External Ointment (Aristocort)Indica tions:Other atopic dermatitis Apply topically to affected area 2 times a day. To affected area. 454 g 3 4 Active Indomethacin ER 75 MG Oral Capsule Extended Release (Indocin SR) Take 1 Capsule by mouth in the morning. 30 Capsule 5 4 Active Apixaban 5 MG Oral Tablet (Eliquis) Take 1 Tablet by mouth in the morning and 1 Tablet before bedtime. 42 Tablet 0 4 Active zoster vac recomb adjuvanted (SHINGRIX) 50 MCG/0.5ML injectionIndicatio ns:Need for vaccination for zoster Inject 0.5 mL into a large muscle now and repeat dose in 60 to 180 days 1 Each 1 0 024 Discontinued Emgality 120 MG/ML Subcutaneous Solution Auto-injector (Galcanezumab-gnlm ) Inject 120 mg (1mL) under skin as directed once a month. 1 mL 11 3 024 Discontinued oxyCODONE HCl 5 MG Oral Capsule (Oxy IR) Take 1 Capsule by mouth every 4 hours as needed. 0 024 Discontinued Mirtazapine 15 MG Oral Tablet (Remeron) Take 1 Tablet by mouth at bedtime. 30 Tablet 5 3 024 Discontinued(Re fill) Ondansetron HCl 4 MG Oral Tablet (Zofran) 1 Tablet. 0 3 024 Discontinued Sulfamethoxazole-T rimethoprim 800-160 MG Oral Tablet (Bactrim DS) Take 1 Tablet by mouth in the morning and 1 Tablet before bedtime. 10 Tablet 0 4 024 Discontinued Phenazopyridine HCl 200 MG Oral Tablet (Pyridium) Take 1 Tablet by mouth 3 times a day as needed for Other (bladder spasms). After meals. 15 Tablet 0 4 024 Discontinued Docusate Sodium 100 MG Oral Capsule (Colace) Take 1 Capsule by mouth in the morning and 1 Capsule before bedtime. 30 Capsule 1 4 024 Discontinued Metoclopramide HCl 10 MG Oral Tablet (Reglan) Take 1 Tablet by mouth every 6 hours as needed for Nausea. 30 Tablet 0 4 024 Discontinued Ondansetron 4 MG Oral Tablet Disintegrating (Zofran) Dissolve 1 Tablet on tongue every 6 hours as needed for Nausea. 30 Tablet 1 4 024 Discontinued oxyCODONE HCl 5 MG Oral Tablet (Oxy IR) Take 1 Tablet by mouth every 6 hours as needed for Pain, Severe. 15 Tablet 0 4 024 Discontinued documented as of this encounter (statuses [...] mRNA, LNP-s, No Pre serve, 2-Dose Series (Pelliano) 07/17/2021,11/22/2020,10/26/2020 Pneumococcal Conjugate Vacc, 13 Valent (Prevnar) [...] on file documented as of this encounter Last Filed Vital Signs Vital Sign Reading Time Taken Comments Blood Pressure 141/74 12/04/2023 3:07 PM EDT Pulse 82 12/04/2023 3:07 PM EDT Temperature 35.9 C (96.7 F) 12/04/2023 3:07 PM ED T Respiratory Rate 16 12/04/2023 3:07 PM EDT Oxygen Saturation 97% 12/04/2023 3:07 PM EDT Inhaled Oxygen Concentration - - Weight 111.1 kg (245 lb) 11/27/2023 6:53 AM EDT Height 177.8 cm (5' 10") 11/27/2023 6:53 AM EDT Body Mass Index 35.15 11/27/2023 6:53 AM EDT documented in this encounter Functional Status Functional Status Response [...] No 11/27/2023 documented as of this encounter Discharge Instructions * Discharge Instr - AVS* Roberto Edwards MD - 12/01/2023 9:18 AM EDT No heavy lifting times 4-6 weeks. Okay to shower. No tub bath. Contact our office or proceed to the emergency room with any fevers (temperature greater than 100.5), chills, nausea, vomiting or other difficulties in the postoperative period. Also contact our office if there is redness or significant drainage from the incision. Continue to take stool softener until bowels are regular. Okay to stop if diarrhea occurs. Do not scrub or pick at glue on incisions. Follow-up in office as scheduled for review of pathology and catheter removal. Try to walk daily, avoid high impact exercise. No driving while taking pain medication. Catheter care as reviewed by nursing staff. Blood in and around Singh catheter is expected including small clots. Contact the urology office orproceed to the emergency room if catheter stops draining. Drainage from the drain incision is expected and could last for several days. documented in this encounter H&P Notes * Roberto Edwrads MD - 11/27/2023 7:21 AM EDT GENERAL HISTORY & PHYSICAL EXAMINATION - Urology Service [facility] [address] Name: Josiah Gutiérrez Location: [facility] Date: 11/27/2023 Time: 7:21 AM Date of H&P November 28, 2023. [id number] PCP: BENY CAMPBELL [address] [place] [address] [phone] Josiah Gutiérrez is a 82 year old male, who presents for right-sided hand assisted laparoscopic nephroureterectomy. Patient's past notes are reviewed. Previous evaluation including endoscopy, biopsy and CT imaging are reviewed. Patient denies significant changes in his health since last being seen.He is anxious to proceed with intervention. BPH: Patient is being seen for BPH today. He has had the following symptoms: slow stream. Severity is mild. He has tried tamsulosin and finasteride, not using latter. He has previously had prostate biopsy done. Problem has been present for years. Cystoscopy demonstrates bladder outlet obstruction, BPH, early median lobe. Problem is about the same. 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 Presented Jun 2023 with gross hematuria. Questionable right upper pole tumor found on CT imaging. Right ureteroscopy with biopsy and stent August 2023 positive for urothelial mass. CT scan July 2023: IMPRESSION Ill-defined tumor within the right upper pole collecting system, suspicious for urothelial carcinoma. Cystoscopy is recommended for further evaluation. CT chest July 2023: IMPRESSION 1. Stable small pulmonary nodules measuring up to 0.4 cm. No new pulmonary nodules. 2. No enlarged thoracic lymph nodes. 3. Stable mildly dilated ascending aorta measuring up to 3.8 cm. Consider continued surveillance. 4. Mild right gynecomastia, new since the prior CT. Please correlate clinically. 5. Other incidental findings as detailed above. Elevated PSA: Patient is being seen for evaluation of an elevated PSA. Previous evaluation includes numerous prostate biopsies with Dr. Brooks and Dr. Saeed, [facility] seen. Patient has been on tamsulosin and finasteride. @actMED@ Review of patient's allergies indicates: Allergen Reactions Botox [Onabotulinumtoxina] Other (Please comment) Swallowing difficulty after injection Azelastine Unknown Social History: Social History Tobacco Use Smoking status: Former Types: Cigarettes Smokeless tobacco: Former Types: Snuff Tobacco comments: quit 35 year ago Substance Use Topics Alcohol use: Yes Comment: rarely Vaping/E-Cigarette Use Vaping/E-Cigarette Use Never User Vaping/E-Cigarette Substances Vaping/E-Cigarette Devices Family History Problem Relation Age of Onset Other (Other) Other pt denies hx of skin ca for parents Cancer Mother Other (Other) Mother Cancer Father Past Surgical History: Procedure Laterality Date COLONOSCOPY, DIAGNOSTIC (RECTUM) 06/23/2015 adenomatous & hyperplastic polyps, diverticulosis, repeat 3 yrs/COLONOSCOPY FLEXIBLE PROXIMAL DIAGNOSTIC performed by Delfina Butcher DO at [facility] COLONOSCOPY, DIAGNOSTIC (RECTUM) 07/23/2018 adenomatous polyps, diverticulosis, repeat 3 yrs/COLONOSCOPY FLEXIBLE PROXIMAL DIAGNOSTIC performedby Delfina Butcher DO at [facility] COLONOSCOPY, DIAGNOSTIC (RECTUM) 08/03/2021 adenomatous, hyperplastic & serrated adenomatous polyps, diverticulosis, repeat 3 yrs / COLONOSCOPY FLEXIBLE PROXIMAL DIAGNOSTIC performed by Delfina Butcher DO at [facility] CYSTOURETERO W/BIOPSY Right 09/02/2023 CYSTOURETHROSCOPY URETEROSCOPY WITH BIOPSY AND OR FULGURATION LESION performed by Roberto Edwards MD at OR [facility]/LITHOTRIPSY 10/13/2008 EGD, FLEXIBLE, DIAGNOSTIC 09/24/2013 ESOPHAGOGASTRODUODENOSCOPY (EGD), FLEXIBLE, TRANSORAL, DIAGNOSTIC performed by Jay Brower MD at[facility]COPY [facility] EGD, FLEXIBLE, DIAGNOSTIC 01/04/2014 ESOPHAGOGASTRODUODENOSCOPY (EGD), FLEXIBLE, TRANSORAL, DIAGNOSTIC performed by Jay Brower MD atENDOSCOPY [facility] EGD, FLEXIBLE, DIAGNOSTIC 06/09/2015 Barretts, repeat 1 yr/ESOPHAGOGASTRODUODENOSCOPY (EGD), FLEXIBLE, TRANSORAL, DIAGNOSTIC performed by Delfina Butcher DO at [facility] EGD, FLEXIBLE, DIAGNOSTIC 06/12/2016 [place]ret[place], duodenal lipoma, repeat 1 yr/ESOPHAGOGASTRODUODENOSCOPY (EGD), FLEXIBLE, TRANSORAL, DIAGNOSTIC performed by Delfina Butcher DO at [facility]COPY [facility] EGD, FLEXIBLE, DIAGNOSTIC 08/07/2017 Barretts, repeat 3 yrs/ESOPHAGOGASTRODUODENOSCOPY (EGD), FLEXIBLE, TRANSORAL, DIAGNOSTIC performed by Delfina Butcher DO at [facility] EGD, FLEXIBLE, DIAGNOSTIC 07/23/2018 Barretts w/ LGD/ESOPHAGOGASTRODUODENOSCOPY (EGD), FLEXIBLE, TRANSORAL, DIAGNOSTIC performed by Delfina Butcher DO at [facility]COPY [facility] EGD, FLEXIBLE, DIAGNOSTIC 07/28/2019 [place]retts, gastritis, duodenal polyp, repeat 1 yr/ESOPHAGOGASTRODUODENOSCOPY (EGD), FLEXIBLE, TRANSORAL, DIAGNOSTIC performed by Delfina Butcher DO at [facility] EGD, FLEXIBLE, DIAGNOSTIC 10/28/2020 Barretts, duodenal lipoma, repeat 1 yr / [facility] EGD, FLEXIBLE, DIAGNOSTIC 08/03/2021 Barretts, repeat 3 yrs / ESOPHAGOGASTRODUODENOSCOPY (EGD), FLEXIBLE, TRANSORAL, DIAGNOSTIC performed by Delfina Butcher DO at END[facility]COPY [facility] EGD, W/ENDOSCOPIC US 05/20/2013 UPPER GI ENDOSCOPY ENDOSCOPIC ULTRASOUND performed by Delfina Butcher DO at [facility] EGD, W/ENDOSCOPIC US 06/07/2014 fatty liver, lipoma of the duodenum, Barretts, repeat 1 yr/ESOPHAGOGASTRODUODENOSCOPY (EGD), FLEXIBLE, TRANSORAL, ENDOSCOPIC ULTRASOUND performed by Delfina Butcher DO at [facility]COPY [facility] EGD, W/ENDOSCOPIC US 06/09/2015 fatty liver, duodenal lipoma/ESOPHAGOGASTRODUODENOSCOPY (EGD), FLEXIBLE, TRANSORAL, ENDOSCOPIC ULTRASOUND performed by Delfina Butcher DO at [facility]COPY [facility] INFORMATION Left L TKA. KNEE ARTHROSCOPY/SURGERY REMOVE CATARACT, INSERT LENS PROSTH Left 12/07/2021 Left EXTRACAPSULAR CATARACT REMOVAL WITH INTRAOCULAR LENS performed by Eulogio Barrios MD at [facility] REMOVE CATARACT, INSERT LENS PROSTH Right 12/19/2021 Right EXTRACAPSULAR CATARACT REMOVAL WITH INTRAOCULAR LENS performed by Eulogio Barrios MD at [facility] SINUS SURGERY PROCEDURE NEC 1996 Past Medical History: Diagnosis Date Allergic rhinitis Evans's esophagus 09/24/2013 Chronic sinusitis Headache(784.0) chronic frontal headaches lesion under left arm Other ringworm-left cheek Rash Nec Patient Active Problem List Diagnosis Code BPH with obstruction/lower urinary tract symptoms N40.1, N13.8 Other specified disorder of penis N48.89 ADVANCE DIRECTIVE INFORMATION Frequent headaches R51.9 Allergic rhinitis J30.9 Evans's esophagus K22.70 HTN, goal below 140/90 I10 Chronic tension-type headache, intractable G44.221 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 Anxiety state F41.1 Mild intermittent asthma J45.20 Status post functional endoscopic sinus surgery (FESS) Z98.890 Gastroesophageal reflux disease K21.9 Intractable chronic migraine without aura and without status migrainosus G43.719 Cervicalgia M54.2 Bilateral occipital neuralgia M54.81 FAHAD (generalized anxiety disorder) F41.1 Prediabetes R73.03 Major depressive disorder, recurrent episode, moderate (HCC) F33.1 Medical home patient encounter Z00.8 Urothelial carcinoma of kidney, right (HCC) C64.1 Constitutional: (-) fever and (-) chills ENT: (-) stridor Cardiovascular: (-) chest pain Male : see HPI Neurology: (-) negative: no focal neurologic defect Psychiatry: (+) depression Physical Exam Nursing note reviewed. Constitutional: General: He is not in acute distress. Appearance: Normal appearance. He is obese. He is not ill-appearing or toxic-appearing. HENT: Head: Normocephalic and atraumatic. Right Ear: External ear normal. Left Ear: External ear normal. Nose: Nose normal. Mouth/Throat: Mouth: Mucous membranes are moist. Eyes: Extraocular Movements: Extraocular movements intact. Cardiovascular: Pulses: Normal pulses. Pulmonary: Effort: Pulmonary effort is normal. No respiratory distress. Abdominal: Palpations: Abdomen is soft. Tenderness: There is no abdominal tenderness. Musculoskeletal: Cervical back: Normal range of motion and neck supple. Lymphadenopathy: Cervical: No cervical adenopathy. Skin: Coloration: Skin is not cyanotic or pale. Neurological: Mental Status: He is alert and oriented to person, place, and time. Motor: No weakness. Gait: Gait normal. Psychiatric: Attention and Perception: Attention normal. Mood and Affect: Mood and affect normal. Creatinine Results: Lab Results Component Value Date/Time CREATININE - [facility] 0.9 11/06/2023 08:56 AM CREATININE - [facility] 1.0 07/30/2023 11:38 AM CREATININE - [facility] 0.9 03/22/2023 08:20 AM CREATININE - [facility] 0.9 07/28/2020 09:03 AM CREATININE - [facility] 0.8 05/09/2020 12:32 PM CREATININE - [facility] 0.8 01/17/2017 01:18 PM CREATININE, RANDOM URINE - [facility] 148 11/06/2023 08:58 AM CREATININE, RANDOM URINE - [facility] 153 03/22/2023 08:21 AM CREATININE, RANDOM URINE - [facility] 143 02/14/2021 04:48 PM CREATININE-OUTSIDE LAB 0.82 09/24/2022 12:00 AM CREATININE-[facility] LAB 0.8 05/28/2022 12:00 AM CREATININE-OUTSIDE LAB 0.8 05/25/2021 12:00 AM CBC Results: Results for orders placed or performed in visit on 11/06/23 CBC Result Value Ref Range WBC 8.06 4.00 - 10.80 K/uL RBC 4.79 4.50 - 5.25 M/uL HGB 15.3 14.0 - 16.8 g/dL HCT 44.3 40.0 - 48.4 % MCV 92.5 82.0 - 99.5 fL MCH 31.9 27.0 - 34.0 pg MCHC 34.5 32.0 - 36.0 g/dL RDW 12.4 11.5 - 15.5 % PLT 212 140 - 400 K/uL MPV 9.1 6.6 - 11.1 fL Impression/Plan: 82-year-old male with a right renal urothelial malignancy. Findings reviewed with patient. Will proceed with right-sided hand assisted laparoscopic nephroureterectomy with intravesical instillation of mitomycin-C. IV Ancef on-call for antibiotic coverage, SCDs for DVT prophylaxis. IV Tylenol for additional perioperative analgesia. Informed consent reviewedin the chart, no new questions, wishes to proceed. Roberto Edwards MD 7:21 AM 11/27/2023 documented in this encounter Consult Notes * Reyna Jeter RDN - 12/02/2023 3:54 PM EDTAssociated Order(s): PARENTERAL NUTRITION SUPPORT (ADULT) CONSULT IP CLINICAL NUTRITION CONSULT/PROGRESS NOTE [facility]-[address] [address] Name: Josiah Gutiérrez Location: [facility] [id number] Date: 12/02/2023 Time: 3:54 PM How patient was identified (select 2): date and Name Discussed in interdisciplinary rounds: No Josiah Gutiérrez is a 82 year old male being seen for consult by provider and PPN Primary Diagnosis: Urothelial carcinoma of kidney, right Other pertinent information: Met with patient at bedside to assess nutritional status. Patient reports that the last time he ate food was 6-7 days ago. Since then he has been NPO/clear liquids throughout his admission (day 5). Patient reported that his appetite has been poor since he left the hospital in August. Patient reported that his usual body weight is in the 240's lbs. Patient had not noticed any weight changes. Per EHR, patient's weight is stable. Patient reported that he did not have any issues chewing but that he has issues swallowing pills now that the NG tube is in. Performed a nutrition focused physical exam today which was unremarkable. Patient does not have malnutrition. Patient currently has an ileus--with no plans to advance diet; patient meets criteria for parenteral nutrition. Recommendations below. NUTRITION ASSESSMENT: Past medical/surgical history and medications reviewed. Food/Nutrition-Related History Diet: NPO Previously followed diet: Clear liquid diet Food Allergies/Intolerances: NKFA Adult Energy Intake: Less than 50% of estimated energy requirement for greater than 5 days (severe, acute illness). Oral Nutrition Supplement (ONS): None Pertinent medications/vitamins/minerals/supplements: NSS infusion, pantoprazole Pertinent Biochemical Data: There are no biochemical abnormalities requiring a change in the nutrition plan of care. Nutrition-Focused Physical Findings: Appearance: Obese Respiratory support: Supplemental O2 Delivery: Room Air, None Nasal/Oral: No issues identified Digestive: Appetite poor and Bowel obstruction/ileus/fistula Last Bowel Movement: 11/30/23 (11/30/232051) Cognition: Awake, alert and Oriented Skin: Compromise without nutrition-related implications Enteral access: [place] Tube for suction Nutrition Focused Physical Exam: NFPE completed on 12/02/23 Subcutaneous Fat Loss: No significant subcutaneous fat loss noted. Muscle Loss: No significant muscle loss noted. Edema Location: Lower extremities;Both (12/02/[address]) Edema Assessment: +1 - Description (12/02/238[address]) Anthropometrics Measurements Height: 177.8 cm (5' 10") (11/27/23652) Admission weight: 111.1 kg Weight: 111.1 kg (245 lb) (11/27/23652) BMI: 35.15 (11/27/23652) Usual Body Weight: 106-111 kg Secor weight: 78.7 kg Secor Weight Based on BMI: 24.9 Interpretation of Weight Change Prior to Admission: Weight gain Weight Changes Since Admission: no updated weight--will order new weight Nutrition Prescription: Energy needs: Other: [place] Kcal/kg Kcal/day: 2180 Based on current weight Protein needs: 1.0-1.2 gm/kg Protein: 111-133 Based on current weight Fluid needs: 1 ml/1 kcal ml/kg Fluid: 2180 ml/day Based on current weight Malnutrition: Malnutrition Present: No (12/02/23 1602) NUTRITION DIAGNOSIS: Suboptimal energy intake related to ileus as evidenced by patient NPO and poor appetite Altered GI function related to ileus as evidenced by NPO status, need for parenteral nutrition Goals: Diet advancement or initiation of enteral/parenteral nutrition within 24-48 hours. NUTRITION INTERVENTION/PLAN: Orders: Weight Continue to monitor NPO/clear liquid status Clinical Nutrition Recommendations: Parenteral Nutrition: PPN Recommend using the standard 2000 ml PPN solution (clinimix) If PPN is prolonged, recommend TPN at the goals below: 2000 ml 110 g amino acids 60 g lipids 335 g dextrose This provides 2179 kcals and 110 g protein NUTRITION MONITORING AND EVALUATION: NPO status/diet advancement and tolerance Lab values warranting change with MNT Weight for trends Plan follow-up: Will follow and adjust nutrition plan of care as medical condition requires. Please contact for change(s) in patient condition requiring earlier intervention. Reyna Jeter MS, RDN Clinical Nutrition [facility] Available via [place] Text [phone] * Reagan Pablo MD - 12/01/2023 10:20 AM EDT Images from the original note were not included. [facility] [id number] Consults REASON FOR CONSULT: Post operative Ileus and Need for TPN REQUESTOR OF CONSULT: Dr. Edwards HPI: 82 yo Male with Right renal urothelial malignancy underwent Elective Laparoscopic nephroureterectomy on 11/27/23 complicated by post operative ileus. Labs: Leukocytosis and PRESTON with Cr/ BUN: 1.5/ 37 stable for the last 3 days. Patient noted to have bilious emesis overnight. Patient able to pass gas but its been 4 days since he had good bowel movement. Reports reflux and constant burping. Patient ambulating well. CT abdomen/ pelvis: Short air-fluid levels within the proximal colon. Distended small bowel loops with air-fluid levels. The stomach is distended with fluid. Air-fluid collection along the right pelvic wall measuring 5.2 cm in length by 2.3 cm in height by 3 cm in AP dimension. It is located posterior to the iliac vessels. Subjective Patient's past history, medications, and allergies were reviewed. Objective Physical Exam Most Recent Vital Signs: BP: 153 mmHg/82 mmHg (12/01/23 06) Pulse: 82 (12/01/23 0700) Temp: 35.72 C (12/01/23 0419) Temp Summary: Temp Min: 35.7 C (96.3 F) Max: 36.1 C (97 F) SpO2: 93 % (12/01/23699) O2 flow rate: 1 L/MIN (11/27/23 1758) Supplemental O2 Delivery: Room Air, None (12/01/23 08) Constitutional: well nourished, well developed, no acute distress HEENT: normocephalic, atraumatic; no masses, tenderness, or adenopathy CV: sinus rhythm, no murmur, gallops or rub appreciated. Chest: normal respiratory effort, lungs clear to auscultation and percussion Abdomen: Distended. Mild diffuse TTP+ Extremities: no edema, no cyanosis, normal ROM, no tenderness to palpation or ROM Skin: warm, dry, intact. Neuro: alert, oriented to person, place, and time, normal mental status exam, no focal neuro deficits. Urethral Catheter Coude (Active) Number of days: 4 Peripheral Line Left;Upper Antecubital 20 Gauge (Active) Number of days: 0 STUDIES: Encounter Orders Labs and other studes reviewed with pertinent findings noted below: Latest Reference Range & Units 12/01/23 06:03 Sodium 135 - 146 mmol/L 136 Potassium 3.5 - 5.1 mmol/L 3.9 Chloride 98 - 107 mmol/L 99 CO2 22 - 32 mmol/L 25 BUN 6 - 20 mg/dL 37 (H) Creatinine 0.6 - 1.2 mg/dL 1.5 (H) Estimated Glomerular Filtration Rate >=60 mL/min 47 (L) Anion Gap 7 - 15 mmol/L 12 Glucose 70 - 120 mg/dL 126 (H) Calcium 8.4 - 10.2 mg/dL 8.7 CBC Rpt ! WBC 4.00 - 10.80 K/uL 14.30 (H) RBC 4.50 - 5.25 M/uL 4.31 HGB 14.0 - 16.8 g/dL 13.9 (L) HCT 40.0 - 48.4 % 40.8 MCV 82.0 - 99.5 fL 94.7 MCH 27.0 - 34.0 pg 32.3 MCHC 32.0 - 36.0 g/dL 34.1 RDW 11.5 - 15.5 % 13.0 PLT 140 - 400 K/uL 241 MPV 6.6 - 11.1 fL 9.1 CBC WITH WBC DIFFERENTIAL Rpt ! Absolute Neutrophils 1.80 - 7.70 K/uL 11.34 (H) Absolute Lymphocytes 1.00 - 4.80 K/ul 1.33 Absolute Monocytes 0.00 - 1.10 K/uL 1.34 (H) Absolute Eosinophils 0.00 - 0.70 K/uL 0.13 Absolute Basophils 0.00 - 0.20 K/uL 0.04 (H): Data is abnormally high (L): Data is abnormally low !: Data is abnormal Rpt: View report in Results Review for more information Assessment and Plan IMPRESSION: Principal Problem: Urothelial carcinoma of kidney, right (HCC) Resolved Problems: * No resolved hospital problems. * RECOMMENDATIONS: 82 yo Male with Right renal urothelial malignancy underwent Elective Laparoscopic nephroureterectomy on 11/27/23 complicated by post operative ileus. CT abdomen/ pelvis: Short air-fluid levels within the proximal colon. Distended small bowel loops with air-fluid levels. The stomach is distended with fluid. Air-fluid collection along the right pelvic wall measuring 5.2 cm in length by 2.3 cm in height by 3 cm in AP dimension. It is located posterior to the iliac vessels. - Place NG tube connect to suction - Monitor NG tube output - NPO - IV PPI daily - Ambulate as tolerated - Rest of care per Urology Time spent: 35 Mins. More than half with patient and remaining time for reviewing labs, medial records, coordination of care with nurses and specialities. Ritchie elements of the counseling and coordination of care included detail of treatment plan w/ pt and caregivers, content of pt and/or family discu ssions, ritchie tests or procedures reviewed/ordered in [facility], outcomes of discussions with other healthcare providers * Amadou Jacques, PT - 11/28/2023 10:48 AM EDTAssociated Order(s): ADULT PHYSICAL THERAPY CONSULT IP GENERAL EVALUATION - Physical Therapy [address] [address] Name: Josiah Gutiérrez Location: [facility] [id number] Date: 11/28/2023 Time: 1047 Josiah Gutiérrez is a/an 82 year old male. Patient Status: Inpatient Insurance: Payor: MEDICARE Plan: MEDICARE A AND B Product Type: *No Product type* Payor: [employer] [facility] ([id number]) Plan: RACTIV MEDICARE SUPPLEMENT Product Type: *No Product type* Patient Seen: at bedside, nursing cleared patient for therapy Patient Identified By: Name, ID Band and Date Diagnosis: Gait dysfunction, decreased mobility, s/p Right-sided hand assisted laparoscopic radicalnephroureterectomy, intravesical instillation of mitomycin-C (11/28/231047) Status of treatment: Evaluation completed (11/28/231047) Orders: PT evaluation and treatment (11/28/231047) Weight Bearing Status: Weight bearing as tolerated;RUE;LUE;RLE;LLE (11/28/231047) Precautions: Alarms;Falls;Singh;Safety (11/28/231047) Total Treatment Time--free text: 35 minutes (11/28/231047) HPI: Referred to PT for consult s/p Right-sided hand assisted laparoscopic radical nephroureterectomy, intravesical instillation of mitomycin-C. Past Medical History: Past Medical History: Diagnosis Date Allergic rhinitis Evans's esophagus 09/24/2013 Chronic sinusitis Headache(784.0) chronic frontal headaches lesion under left arm Other ringworm-left cheek Rash Nec Past Surgical History: Past Surgical History: Procedure Laterality Date COLONOSCOPY, DIAGNOSTIC (RECTUM) 06/23/2015 adenomatous & hyperplastic polyps, diverticulosis, repeat 3 yrs/COLONOSCOPY FLEXIBLE PROXIMAL DIAGNOSTIC performed by Delfina Butcher DO at [facility] COLONOSCOPY, DIAGNOSTIC (RECTUM) 07/23/2018 adenomatous polyps, diverticulosis, repeat 3 yrs/COLONOSCOPY FLEXIBLE PROXIMAL DIAGNOSTIC performedby Delfina Butcher DO at [facility] COLONOSCOPY, DIAGNOSTIC (RECTUM) 08/03/2021 adenomatous, hyperplastic & serrated adenomatous polyps, diverticulosis, repeat 3 yrs / COLONOSCOPY FLEXIBLE PROXIMAL DIAGNOSTIC performed by Delfina Butcher DO at [facility] CYSTOURETERO W/BIOPSY Right 09/02/2023 CYSTOURETHROSCOPY URETEROSCOPY WITH BIOPSY AND OR FULGURATION LESION performed by Roberto Edwards MD at OR [facility]/LITHOTRIP[facility] 10/13/2008 EGD, FLEXIBLE, DIAGNOSTIC 09/24/2013 ESOPHAGOGASTRODUODENOSCOPY (EGD), FLEXIBLE, TRANSORAL, DIAGNOSTIC performed by Jay Brower MD at[facility]COPY [facility] EGD, FLEXIBLE, DIAGNOSTIC 01/04/2014 ESOPHAGOGASTRODUODENOSCOPY (EGD), FLEXIBLE, TRANSORAL, DIAGNOSTIC performed by Jay Brower MD atENDOSCOPY [facility] EGD, FLEXIBLE, DIAGNOSTIC 06/09/2015 Barretts, repeat 1 yr/ESOPHAGOGASTRODUODENOSCOPY (EGD), FLEXIBLE, TRANSORAL, DIAGNOSTIC performed by Delfina Butcher DO at [facility]COPY [facility] EGD, FLEXIBLE, DIAGNOSTIC 06/12/2016 Barretts, duodenal lipoma, repeat 1 yr/ESOPHAGOGASTRODUODENOSCOPY (EGD), FLEXIBLE, TRANSORAL, DIAGNOSTIC performed by Delfina Butcher DO at [facility]COPY [facility] EGD, FLEXIBLE, DIAGNOSTIC 08/07/2017 Barretts, repeat 3 yrs/ESOPHAGOGASTRODUODENOSCOPY (EGD), FLEXIBLE, TRANSORAL, DIAGNOSTIC performed by Delfina Butcher DO at [facility]COPY [facility] EGD, FLEXIBLE, DIAGNOSTIC 07/23/2018 Barretts w/ LGD/ESOPHAGOGASTRODUODENOSCOPY (EGD), FLEXIBLE, TRANSORAL, DIAGNOSTIC performed by Delfina Butcher DO at [facility]COPY [facility] EGD, FLEXIBLE, DIAGNOSTIC 07/28/2019 Barretts, gastritis, duodenal polyp, repeat 1 yr/ESOPHAGOGASTRODUODENOSCOPY (EGD), FLEXIBLE, TRANSORAL, DIAGNOSTIC performed by Delfina Butcher DO at [facility]COPY [facility] EGD, FLEXIBLE, DIAGNOSTIC 10/28/2020 Barretts, duodenal lipoma, repeat 1 yr / [facility] EGD, FLEXIBLE, DIAGNOSTIC 08/03/2021 Barretts, repeat 3 yrs / ESOPHAGOGASTRODUODENOSCOPY (EGD), FLEXIBLE, TRANSORAL, DIAGNOSTIC performed by Delfina Butcher DO at [facility]COPY [facility] EGD, W/ENDOSCOPIC US 05/20/2013 UPPER GI ENDOSCOPY ENDOSCOPIC ULTRASOUND performed by Delfina Butcher DO at [facility] EGD, W/ENDOSCOPIC US 06/07/2014 fatty liver, lipoma of the duodenum, Barretts, repeat 1 yr/ESOPHAGOGASTRODUODENOSCOPY (EGD), FLEXIBLE, TRANSORAL, ENDOSCOPIC ULTRASOUND performed by Delfina Butcher DO at [facility]COPY [facility] EGD, W/ENDOSCOPIC US 06/09/2015 fatty liver, duodenal lipoma/ESOPHAGOGASTRODUODENOSCOPY (EGD), FLEXIBLE, TRANSORAL, ENDOSCOPIC ULTRASOUND performed by Delfina Butcher DO at END[facility]COPY [facility] INFORMATION Left L TKA. KNEE ARTHROSCOPY/SURGERY REMOVE CATARACT, INSERT LENS PROSTH Left 12/07/2021 Left EXTRACAPSULAR CATARACT REMOVAL WITH INTRAOCULAR LENS performed by Eulogio Barrios MD at [facility] REMOVE CATARACT, INSERT LENS PROSTH Right 12/19/2021 Right EXTRACAPSULAR CATARACT REMOVAL WITH INTRAOCULAR LENS performed by Eulogio Barrios MD at [facility] SINUS SURGERY PROCEDURE NEC 1996 Subjective: Pt expressed willingness to participate in PT consult. Social History/Disposition Lives with: Spouse (11/28/231047) Assistance available: Yes (from spouse) (11/28/231047) Dwelling type: Multi-story home (11/28/231047) Entry steps: 3 (w/ 1 rail) (11/28/231047) Inside steps: 10 - 15 (w/ 1 rail) (11/28/231047) Bedroom location: 1st floor (1st and 2nd floors) (11/28/231047) Bath location: 1st floor shower;2nd floor full bath (11/28/231047) Prior Level of Function Reported by: Patient (11/28/231047) Ambulation: Ambulatory without device (11/28/231047) Devices at home: Rolling walker;Straight cane (11/28/231047) Observations Consciousness: Alert (11/28/231047) Orientation: Oriented times 4 (11/28/231047) Psychosocial: Patient can communicate basic needs;Patient can converse in a social setting (11/28/231047) Other Findings: Yes (11/28/231047) Findings: Light touch sensation;Coordination;Tone (11/28/231047) Light Touch Sensation Results: Impaired;LLE;RLE;Intact;LUE;RUE (decreased chronically (per pt) B lower legs and B feet) (11/28/231047) Coordination Results: Impaired;LLE;RLE;Intact;LUE;RUE (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 Pain located R side/flank. 3/10 at rest at start and end of PT session, 8/10 w/ sit <> stand Staff Notified Range of Motion Range of Motion: WFL (11/28/231047) Strength Assessment Strength Assessment: Deficits noted (11/28/231047) WNL, except: LUE;RUE;LLE;RLE (11/28/231047) LUE: 4-/5;Shoulder;4+/5;Elbow;Wrist;4/5;Grasp (11/28/231047) RUE: 4-/5;Shoulder;4+/5;Elbow;Wrist;4/5;Grasp (11/28/231047) LLE: 4+/5;Hip;Knee;2/5;Ankle (2/5 ankle DF, 4/5 ankle PF) (11/28/231047) RLE: 4+/5;Hip;Knee;3-/5;Ankle (3-/5 ankle DF, 4/5 ankle PF) (11/28/231047) P.T. Bed Mobility Roll (Left): Minimal Assistance (11/28/231047) Supine-Sit: Minimal Assistance (11/28/231047) Transfers Sit-Stand: Moderate Assistance (11/28/231047) Stand-Sit: Minimal Assistance (11/28/231047) W/C-Bed/Mat: Moderate Assistance (11/28/231047) Ambulation: Distance ambulated (feet): 184 Assistive Device: Rolling walker Assist: Minimal Assistance 1 Gait Characteristics: Decreased speed, Decreased step length, Unsteady, Increased trunk sway, no heel strike/foot flat R LE, steppage gait L LE, not safe to transfer or amb w/o assistance. Stair training: up/down 1, 6" step once w/ straight cane and 1 railing w/ min A 1 Balance Sit (Static): Good (11/28/231047) Sit (Dynamic): Good (11/28/231047) Stand (Static): Fair (11/28/231047) Stand (Dynamic): Fair (11/28/231047) Patient and or Family Goal(s): to get well and to return home Patient Education Review of Precautions: Safety;Fall (no amb or transfers w/o nursing assist) (11/28/231047) Safety Awareness: Patient verbalizes insight of current deficits;Patient demonstrates carryover of insight during functional tasks;Patient can communicate basic needs (11/28/231047) Preferred learning method: Combination (11/28/231047) Barriers to learning: Medical Status;Hearing (hard of hearing) (11/28/231047) Method of Education: Verbalized to patient;Verbalized to family/caregiver;Patient demonstrated task(11/28/231047) Topic of Education: Safety with mobility, Goals/plan of care, Use of assistive device, Stair training, Fall prevention, and instructed and informed spouse that at current level of function if discharged home, pt is to use a rolling walker (except on stairs which are not large enough for all 4 legs of walker to fit on each stair) and have assist of 1 at all times for amb and transfers from a caregiver who can physically assist pt Method of Education: Verbal discussion and explanation provided to pt: verbalized understanding andor agreement of this information Treatment Provided: Therapeutic Activities 5 minutes: bed mobility training transfer training Gait Training 15 minutes: gait training with rolling walker Evaluation Moderate Complexity 15 minutes - 24740: Patient was cooperative, pleasant, motivated, and alert during treatment session. 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 Patient presents with limitations in strength, bed mobility, transfers, gait, elevations, balance, and safety, which will impact plan of care. These limitations will be addressed by the goals set for this patient. Alarm Status Patient positioned in: Chair (recliner, foot rest down, brakes locked, IV and singh secure, spouse w/pt) (11/28/231047) With: Pressure pad alarm intact and functioning and call carrera in reach (11/28/231047) Treatment Status: Treatment at bedside (11/28/231047) Goals: Demonstrate Bed Mobility with: Supine to Sit: supervision (with cues) Sit to supine: supervision (with cues) Demonstrate Transfers with: Sit to stand: supervision (with cues) Stand to sit: supervision (with cues) Bed to chair: supervision (with cues) Chair to bed: supervision (with cues) Demonstrate Ambulation: assistive device: rolling walker distance in feet: 200 or greater level of assistance on level surface: supervision (with cues) Demonstrate Stairclimbing: Number of steps: at least 3, 1 rail and cane, and Level of Assistance: contact guard Increase Safety: w/ functional mobility Time Frame: 10 sessions Assessment: Pt presents w/ deficits in strength, balance, endurance and functional mobility w/ pt requiring mod A 1 for transfers and min A 1 for amb w/ rolling walker, AM PAC 16 and is not safe to transfers or amb without assistance. At discharge would consider post acute care services which may include home health, half-way, outpatient therapy or in pt rehab. The level of care will be determined in collaboration with the patient, family/caregiver and care team members. Skilled PT at [facility] is warranted to address deficits in strength, endurance, balance and functional mobility and to continue to assess discharge needs. Deficits requiring P.T. treatment needs: Safety;Mobility;Balance;Weakness (11/28/231047) Equipment Needs: Equipment needs: Rolling walker (11/28/231047) Treatment Plan: Bed mobility training, Transfer training, Gait training, Elevation training, Strengthening exercises: B LE, Balance activities, and Educate on safety with functional mobility Anticipated Frequency (on eval): 3 to 5 times per week (04/04/24 1048) AM PAC Score with Stairs: 16 * Gareth Walker RN - 11/28/2023 10:06 AM EDTAssociated Order(s): CARE MANAGEMENT CONSULT IP See CM ancillary note. documented in this encounter Nursing Notes * Hernandez Nick RN - 12/04/2023 6:54 PM EDT Patient d/c from facility today. D/c instructions reviewed with patient. All questions answered. Patient sent home with all belongings, d/c instructions. Patient left the facility via w/c with and ARC WELDING MACHINE OPERATOR escorting out. * Alejandra Max NA/UDC - 12/04/2023 5:11 PM EDT Urology will be calling you tomorrow December 04 to let you know a date and time for your follow up appointment if you do not hear anything please call number listed below. Dr. Edwards (Urology) [phone] [employer] [facility] [address] [place] [address] You have a follow up appointment with Dr. Edwards in [facility] on December 08 @ 3:15 pm, please arrive [address] Edwards (Urology) [phone] [facility] [address] [place] [address] * Alejandra Max NA/UDC - 12/04/2023 4:41 PM EDT Urology will be calling you tomorrow December 04 to let you know a date and time for your follow up appointment If you do not receive a phone call please call number listed below. (Urology) [address] [phone] [place] You have a follow up appointment with Dr. Edwards in [facility] on December 08 @ 3:15 pm, please arrive [address] Edwards (Urology) [phone] [facility] [address] [place] [address] * Tala Pike RN - 11/30/2023 11:43 PM EDT Pt c/o nausea and reflux. Pt had two green bilious emesis. Abd firm, distended, rounded, bowel sounds hypoactive on assessment. Pt given PRN antiemetics. Pt stated nausea and reflux improved with medications. Singh catheter noted to only have outpt of 85 mls of concentrated/tea colored urine. Dr. Edwards notified by TT. Orders received to restart IVF at 75 ml/hr. * Amaris Campbell RN - 11/30/2023 9:51 AM EDT During AM assessment, NG was noted to be at 20 cm (measurement on NG not external measurement), NG suction was making a loud noise. NG tip was in pts nose. NG removed and Pt ref replacement. Dr Edwards will be notified during rounds this am. Pt did ambulate several laps in the vo this am, ref to sit in chair, insisted on getting back in bed after walking in the vo. Educated pt on the importance of mobility. * Federica Huertas RN - 11/30/2023 6:13 AM EDT Pt refusing to ambulate. C/o indigestion and NG tube bothering him. * Amaris Campbell RN - 11/29/2023 1:30 PM EDT 16 Fr NG inserted into R nare, pt tolerated with moderate gaging and coughing. Immediate return of green bilious drainage. Xray obtained for placement confirmation. Xray impression reads NG tip belowL hemidiaphragm, per Dr Edwards NG tip location is correct. * Alejandra Max NA/UDC - 11/28/2023 8:53 AM EDT You have a follow up appointment on December 05 @ 10:00am Please arrive 15 minutes early (Urology) [address], [facility] [address] [place] * Jerri Cancino RN - 11/27/2023 3:55 PM EDT IN-HOUSE TRANSFER RECEIVING UNIT - NURSING [address] [address] Name: Josiah Gutiérrez Location: [facility] [id number]-6017/D Date: 11/27/2023 Time: 3:55 PM Patient received to room [facility] at 1430 Vital Signs: BP: 158 mmHg/92 mmHg (11/27/23 1457) Pulse: 78 (11/27/23 1530) Temp: 36.39 C (11/27/23 153) Temp Summary: Temp Min: 35.9 C (96.6 F) Max: 36.6 C (97.9 F) SpO2: 95 % (11/27/23 153) O2 flow rate: 2 L/MIN (11/27/23 153) Supplemental O2 Delivery: Nasal Cannula (11/27/231529) Pertinent transfer information upon arrival : Patient arrived to unit A&O x4, on 3L NC, with fluids infusing. Patient complains of 4/10 pain level. VSS. See flowsheets for detailed assessment data. Patient complains of nausea and dizziness and is dry heaving. No emesis. Cool cloth applied to head. Patient has 2 stabs, one incision, and 1 RITO site. Ice on abdomen. Patient oriented to unit and call carrera left within reach. Fall precautions in place. Belongings received with patient: see flowsheets Verbal SBAR report received from: Armando Chavez RN Dual Licensed Skin Assessment completed by Angelica Cancino RN and Angelica Pantoja RN. The patient is/has a N/A Skin Breakdown (includes non blanchable erythema): Yes - Surgical/Procedural changes only. 2 stabs, 1 incision, and 1 RITO site * Sandra Chavez RN - 11/27/2023 2:42 PM EDT Post Anesthesia Care Unit Discharge Note [facility] [address] Dept. Josiah Haines Brock Vital Signs Stable Discharged from PACU as per discharge criteria (see discharge criteria sheet). Time: 1421 Reported to: Jerri Cancino RN Taken to Inpatient Room 6B17, accompanied by Armando Chavez RN. Transported via: Bed Belongings with Patient: YES Prescriptions on Chart: N/A Patient meets criteria to be transferred or discharged * Leona Royal RN - 11/14/2023 9:48 AM EDT Patient identified by: name/birthdate Person taught: Patient and Spouse Optime case procedure confirmed with surgical consent Laterality confirmed as Right Surgery date at time of Pre-Surgery Center Encounter: 11/27/2023. What procedure is patient having? LAPAROSCOPIC NEPHRECTOMY TOTAL URETERECTOMY (22406) In an emergency, is patient willing to accept blood products or blood transfusion? Unknown. Do you need to place a blood bank order? No Anesthesia consent pool notified? N/A Anesthesia evaluation requested per case documentation? No Preop Evaluation Requested? Yes, follow-up will be documented on Anesthesia note PATIENT EDUCATION SCREENING Person taught: Patient and Spouse Motivation Level: Asks Questions and Eager to Learn Language Barrier: No Physical Barrier: CAHUILLA METHOD: Lecture-telephone interview Patient Preferred Learning Methods: Lecture-Telephone interview Health History interview completed, questions answered, and the following patient instructions provided via telephone interview: Preoperative bathing instructions General preoperative instructions Medication instructions NPO instructions - If your normal morning routine take Wellbutrin, Nexium, and Propanolol the morning of surgery. Ifyou take metformin, hold it the evening before surgery as well. No tobacco products after midnight. Proven Recovery. 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 Post-op Diagnosis: Same. Surgeon: Roberto Edwards MD Assistants: Yumiko Zabala PA-C. No qualified resident available. Game Preserve Manager present for camera management, tissue retraction, instrument and suture passage, suction, patient positioning and general patient safety. Anesthesia: General anesthesia with endotracheal intubation plus Exparel at port sites and hand port. Operation: Right-sided hand assisted laparoscopic radical nephroureterectomy, intravesical instillation of mitomycin-C. Findings: Normal intra-abdominal anatomy, deep pelvis with J hooking of the distal ureter. Intraoperative subcutaneous heparin provided due to the need for retraction on the external iliac vein. 40 mg of mitomycin instilled into bladder in 40 mL of sterile water over the course of dissection. Case Acuity: Elective Wound Class: Clean Specimen and Disposition: Tissue to Pathology , right kidney and ureter, right periureteral tissue. Estimated Blood Loss: One hundred fifty mL Fluids: 1300 mL Urine Output: 600 mL Drains/Implants: #10 round RITO drain in the right lower quadrant, 18 Grenadian coude Singh catheter to gravity drainage after completion of case. Complications: none Postoperative Condition: stable Indications and History: Patient is a pleasant 82-year-old male seen a few months ago for gross hematuria. CT urogram demonstrated a central right lower pole renal mass felt to be consistent with urothelial malignancy. This was confirmed on ureteroscopy and biopsy. After discussion of risks and benefits of various forms ofmanagement patient has decided upon a right-sided hand assisted laparoscopic nephroureterectomy with intravesical instillation of mitomycin-C to manage his disease. Please see H&P and outpatient notes for further details. Informed consent was present in the chart, IV Ancef provided for antibiotic coverage, SCDs used for DVT prophylaxis. Intravenous Tylenol provided for additional perioperative analgesia. No new questions, patient wishes to proceed. Description of Operation: Patient was properly identified and brought into the operative suite after identification of appropriate consent in the chart. General anesthesia with endotracheal intubation was initiated and patient was prepped and draped in the standard fashion for this procedure. radio time sales supervisor-out procedure was followed. Twenty Grenadian three-way Singh catheter was introduced into the bladder with return of clear urine. 10 mL of sterile water were placed into the balloon and irrigation tubing connected to 1 L wasplaced via the instillation port. 40 mg of mitomycin in 40 mL of water was instilled into the bladder which was then double clamped and connected to the patient's Singh catheter bag. This was left inthe bladder until shortly before vesicotomy was performed when the bladder was drained and then flushed with 1 L of sterile saline to ensure no residual intravesical mitomycin. After the catheter wasappropriately prepared, patient was placed in a gentle right flank up position with the patient's arm in an arm board. Patient was flexed and all pressure points were generously padded. Upper and lower body warmer were used throughout the case. Rock incision was made in the right lower quadrant after instillation of local anesthesia at the level of the skin. Incision was brought down through the subcutaneous tissue to the fascia of the external oblique which was cleaned to allow for easier closure in the future. This was sharply entered using Bovie cautery and incision was expanded over thesurgeon's finger. Peritoneal cavity was entered using Metzenbaum scissors and DeBakey forceps without evidence of injury to the bowel. This incision was expanded until sufficiently large to place a GelPort hand port. Abdomen was insufflated via the hand port and laparoscopy was performed demonstrating some right lower quadrant adhesions but otherwise normal intra- abdominal anatomy. Two 12 mm laparoscopic ports were placed in the midclavicular line onto the surgeon's hand and abdomen was insufflated to 15 mmHg. Laparoscopy was performed demonstrating adhesions in the right lower quadrant is noted and a relatively medial:. Adhesions in the right lower quadrant were freed using harmonic scalpel in the white line of Toldt was incised. This was used and extended up to the right upper quadrant to allow for medial mobilization of the liver. Attention was turned to the right lower quadrant where the psoas muscle was identified. Lower pole of the kidney was skeletonized until an inflamed ureter and gonadal vein were identified. Locking Hemolock Weck clip was placed over the ureter to minimize distal migration of urothelial cells over the course of dissection. After the structures were identified dissection was carried cephalad with identification of the duodenal. This was bluntly Kocherized away from the IVC which was also identified. An abundance of right lower quadrant and perinephric fat created some mild challenge with the dissection. Kidney was dissected with Gerota's fascia up to the level of the renal hilum where a single renal artery and vein were identified. Artery and vein were skeletonized partially and then divided using a 45 mm vascular staple load. Kidney was dissected free laterally and superiorly using harmonic scalpel as necessary. Adrenal attachments were taken using vascular staple loads with some adrenal sparing being present. After the kidney was freed within the abdomen surgical snow and Vistaseel tissue sealant were placed over the level of the hilumin the adrenal bed. Gonadal vein was divided using locking Weck clips. Liver and colon were returned to their normal anatomic location. Laparoscopic ports and GelPort were removed and kidney was brought up through the incision were was wrapped in a blue towel for the remainder of the case. Bowel 4 r etractor was placed within the hand port which was enlarged slightly medially. Following the ureterdissection was carried down to the level of the pelvis using clips, Bovie cautery and deep instruments as necessary. A relatively lateral course of the ureter meant that the course of the ureter followed the external iliac artery and vein requiring significant and extended retraction using a vein retractor. Seen the need for traction on the vein to expose the distal ureter decision was made to provide 5000 units of heparin subcutaneously intraoperatively. Ureter was followed into the pelvis using clips and cautery until a lateral entrance into the detrusor was appreciated. 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 Mitomycin was drained from the bladder and bladder was irrigated with 1 L of sterile saline prior to vesicotomy being performed. Ureter was followed into the intramural tunnel using long scissors and Bovie cautery was used to transect the distal ureter at the level of the detrusor. 0 Vicryl suture on a UR6 needle was used to close the vesicotomy in a Fkskds-wx-jqhib fashion. Specimen was handed off for pathologic analysis. Excellent hemostasis was appreciated. Surgical snow was placed in the perivesical spaceon the right-hand side. # 10 round RITO drain was placed via separate stab incision and placed lateral to the bladder. This was secured in place using a 4-0 nylon suture. Excess carbon dioxide gas was removed from the abdomen. Fascia was closed at the level of the 12 mm laparoscopic ports using an 0 Vicryl suture on a UR6 needle in a adjktq-db-kzsyn fashion. Flexion was removed from the table and hand port was closed in 2 layers using [address] 1 needle on the deep musculature of the abdomen and a 1 Vicryl suture on the fascia of the external oblique on a CT 1 needle. Subcutaneoustissues were closed using a 3-0 Vicryl in an interrupted fashion. 4-0 Monocryl was used at the level of the skin followed by Dermabond dressing for closure of the skin incisions. After the patient was removed from his flank position Singh catheter was exchanged for an 18 [place] coude Singh catheterwithout difficulties with 10 mL of sterile water in the balloon. RITO drain was placed to bulb suction. Anesthesia was reversed and patient was transferred to the recovery room in stable condition. Follow-up care: Patient will be admitted to the floor for standard postoperative management. Attestation: I was present and scrubbed for the ritchie portions of the procedure documented in this encounter Miscellaneous Notes * Pt Handout (on AVS) - Lainey Ramirez RN - 12/04/2023 6:12 PM EDT [id number] Apixaban Oral Tablet Brands: Eliquis Uses This medicine is used for the following purposes: blood disorder prevent blood clots treatment of blood clots blood clot Instructions This medicine may be taken with or without food. This medicine will work best if you take it at about the same time every day. Store at room temperature away from heat, light, and moisture. Do not keep in the bathroom. It is important that you keep taking each dose of this medicine on time even if you are feeling well. If you forget to take a dose on time, take it as soon as you remember. If it is almost time for thenext dose, do not take the missed dose. Return to your normal schedule. Do not take 2 doses at one time. Drug interactions can change how medicines work or increase risk for side effects. Tell your healthcare providers about all medicines taken. Include prescription and znkt-fzv-slhjewk medicines, vitamins, and herbal medicines. Speak with your doctor or pharmacist before starting or stopping any medicine. Talk to your doctor before taking other medicines, including aspirins and ibuprofen containing products. Speak to your doctor about which medicines are safe to use while you are on this medicine. It is very important that you follow your doctor's instructions for all blood tests. Cautions This medicine may cause serious bleeding problems in patients taking blood thinner medications. Follow your doctor's instructions carefully to monitor your blood lab tests if you are on blood thinners. Tell your doctor and pharmacist if you ever had an allergic reaction to a medicine. This medicine may cause bleeding from the stomach or bowels. Stop this medicine and call your doctor right away if you have pain in the stomach, red or dark tarry stools, or vomit that looks like coffee grounds. There is an increased risk of bleeding while on this medicine, please tell your doctor or nurse if you notice any excessive bleeding or bruising. Do not use the medication any more than instructed. Please check with your doctor before drinking alcohol while on this medicine. Do not breastfeed while on this medicine. This medicine can hurt a new baby in the womb. If you become while on this medicine, tell your doctor immediately. Your doctor may switch you to a different medicine. Do not take Rosebud's wort while on this medicine. Do not share this medicine with anyone who has not been prescribed this medicine. Some patients have serious side effects from this medicine. Ask your pharmacist to show you the information from the Food and Drug Administration (FDA) and discuss it with you. Always refill this medicine before it runs out. Side Effects The following is a list of some common side effects from this medicine. Please speak with your doctor about what you should do if you experience these or other side effects. nosebleeds Call your doctor or get medical help right away if you notice any of these more serious side effects: bleeding or bruising coughing up blood or vomit that looks like coffee grounds fainting numbness or tingling in hands and feet severe or persistent headache sudden leg pain, swelling, warmth or redness loss of movement anywhere on the body shortness of breath bloody or dark, tarry stools symptoms of stroke (such as one-sided weakness, slurred speech, confusion) difficulty swallowing unusual or unexplained tiredness or weakness blood in urine blurring or changes of vision A few people may have an allergic reaction to this medicine. Symptoms can include difficulty breathing, skin rash, itching, swelling, or severe dizziness. If you notice any of these symptoms, seek medical help quickly. Extra Please speak with your doctor, nurse, or pharmacist if you have any questions about this medicine. [email or web address] IMPORTANT NOTE: This document tells you briefly how to take your medicine, but it does not tell youall there is to know about it. Your doctor or pharmacist may give you other documents about your medicine. Please talk to them if you have any questions. Always follow their advice. There is a more complete description of this medicine available in [facility] [place]. Scan this code on your smartphone or tablet or use the web address below. You can also ask your pharmacist for a printout. If you have any questions, please ask your pharmacist. The display and use of this drug information is subject to Terms of Use. Copyright(c) 2022 [employer]. [employer]. All rights reserved. This information is not intended as a substitute for professional medical care. Always follow your healthcare professional's instructions. * Pt Handout (on AVS) - Lainey Ramirez RN - 12/04/2023 5:29 PM EDT Images from the original note were not included. [id number] Catheter-Linked Urinary Tract Infections A catheter-linked urinary tract infection (CAUTI) is an infection of the urinary tract. It's causedby bacteria that get into the urinary tract when a urinary catheter is used. This is a tube that?s placed into the bladder to drain urine. The urinary tract This tract includes the kidneys, ureters, bladder, and urethra. The kidneys filter blood and make urine. The ureters carry urine from the kidneys to the bladder. The bladder stores urine. The urethracarries urine from the bladder to the outside of the body. What is a urinary catheter? A urinary catheter is a thin, flexible tube. It's placed in the bladder to drain urine. Urine flowsthrough the tube into a collecting bag outside of the body. There are different types of urinary catheters. The most common type is an indwelling catheter. This is also known as a urethral catheter. This is because it?s placed into the bladder through the urethra. It's also called a Singh catheter. A small balloon keeps the catheter in place inside the bladder. Why is a urinary catheter needed? A urinary catheter is needed for any of these: You can't move around for a long time after surgery or injury. You have a surgery that requires you to be under anesthesia for a long time. You have a blockage in your urinary system. Your healthcare provider needs to precisely measure the amount of urine you pass. The function of your kidneys and bladder is being tested. In most cases, the urinary catheter is short term. You'll need it only until the problem that needsit is taken care of. How does a CAUTI develop? Bacteria can get into the urinary tract as the catheter is put into the urethra. Bacteria can also get into the urinary tract while the catheter is in place. The common bacteria that cause a CAUTI are ones that live in the intestine. These bacteria don?t normally cause problems in the intestine. But when they get into the urinary tract, an infection can occur. Why is a CAUTI of concern? Left untreated, a CAUTI can lead to health problems. These problems may include infections of the bladder, prostate, and kidney. A CAUTI can keep you in the hospital longer. If the infection is not treated in time, you may have serious health problems. What are the symptoms of a CAUTI? Tell a healthcare provider or seek medical care right away if you or a loved one has any of these symptoms: A burning feeling, pressure, or pain in your lower belly (abdomen) Fever or chills Urine in the collecting bag that is cloudy or bloody (pink or red) Burning feeling in the urethra or genital area Aching in your back (by the kidneys) Nausea and vomiting Confusion, sleepiness, or a change in behavior (mainly affects older people) Sometimes you may not have any symptoms. But you may still have a CAUTI. How is a CAUTI diagnosed? Your healthcare provider will order tests if you have symptoms of a CAUTI. These include a urine test and blood tests. How is a CAUTI treated? Treatment may involve any of these: Antibiotics. Your healthcare provider will likely prescribe antibiotics if you have symptoms. Beaware that if you don?t have symptoms, you may not be given antibiotics. This is to prevent an increase in bacteria that can?t be killed by certain antibiotics. Removing the catheter. The catheter will be taken out when your healthcare provider decides it?sno longer needed. This often helps stop the infection. Changing the catheter. If you still need a catheter, the old one will be taken out. A new one will be put in. This may help stop the infection. How do hospital and long-term facility staff prevent CAUTIs? To keep patients from getting a CAUTI, staff members take these steps: Prescribe a catheter only when it?s needed. It's taken out as soon as it?s no longer needed. Wash their hands or use an alcohol-based hand cleanser before doing catheter care. Use a clean (sterile) method when placing the catheter into the urinary tract. To do that, before putting the catheter in, the caregiver washes their hands with soap and water. Then they put on sterile gloves. A sterile catheter kit that has cleansers is used to cleanse the genital area. Hang the bag lower than your bladder. This helps stop urine from flowing back into your bladder. Check that the bag is emptied regularly. Do clean intermittent catheterization. This means a catheter is put in so you can urinate. It's then taken out right away. It may be done several times a day. What you can do as a patient to prevent a CAUTI You can help prevent a CAUTI by doing the following: Every day, ask your healthcare provider how long you need to have the catheter. The longer you have a catheter, the higher your chance of getting a CAUTI. Ask a caregiver to clean their hands and put on gloves before touching your catheter. If you?ve been taught how to care for your catheter, wash your hands before and after each session. Check that your bag is lower than your bladder. If it?s not, tell your caregiver. Don?t disconnect the catheter and drain tube. Doing so lets germs get into the catheter. Cleaning the genital and perineal areas is very important. It helps decrease bacteria around thecatheter. Ask your healthcare provider what you should use and how often to clean these areas. If you are discharged with an indwelling catheter Before you leave the hospital, make sure you know how to care for your catheter at home. Ask your healthcare provider how long you need the catheter. Also ask if you need to make a follow-up appointment to have the catheter taken out. Always use a clean (sterile) method when caring for your catheter. Wash your hands before and after doing any catheter care. Call your healthcare provider or seek medical care right away if you develop symptoms of a CAUTI(see above). Last Reviewed Date: 05/26/202219995957-2026 [employer]. All rights reserved. This information is not intended as a substitute for professional medical care. Always follow your healthcare professional's instructions. * Pt Handout (on AVS) - Lainey Ramirez RN - 12/04/2023 5:29 PM EDT Images from the original note were not included. [id number] Discharge Instructions: Caring for Your Indwelling Urinary Catheter You have been discharged with an indwelling urinary catheter. It's also called a Singh catheter. A catheter is a thin, flexible tube. An indwelling urinary catheter has 2 parts. The first part is a tube that drains urine from your bladder. The second part is a bag or other device that collects the urine. The most important thing to remember is that you want to prevent infection. Always wash your hands before handling your catheter bag or tubing. Draining the bedside bag Wash your hands with soap and clean, running water. Or use an alcohol-based hand air press operator that contains at least 60% alcohol. Hold the drainage tube over a toilet or measuring container. Unclamp the tube and let the bag drain. Don?t touch the tip of the drainage tube or let it touch the toilet or container. You don't need to rinse the bag or drainage tube. Cleaning the drainage tube When the bag is empty, clean the tip of the drainage tube with an alcohol wipe. Clamp the tube. Reinsert the tube into the pocket on the drainage bag. Cleaning your skin and tubing Clean the skin near the catheter with soap and water. Wash your genital area from front to back. Wash the catheter tubing. Always wash the catheter in the direction away from your body. You will be told when and how to change your bag and tubing. Don?t try to remove the catheter by yourself. You may shower with the catheter in place. Emptying a leg bag Wash your hands. Remove the stopper on the bag. Drain the bag into the toilet or a measuring container. Don?t let the tip of the drainage tube touch anything, including your fingers. Clean the tip of the drainage tube with alcohol. Replace the stopper. Follow-up care Make a follow-up appointment, or as directed by your healthcare provider. When to call your healthcare provider Call your healthcare provider right away if you have any of the following: Fever of 100.4F ( 38C) or higher, or as directed by your provider Chills Leakage around the catheter insertion site Increased spasms (uncontrollable twitching) in your legs, belly (abdomen), or bladder. Occasional mild spasms are normal. Burning in the urinary tract, penis, or genital area Nausea and vomiting Aching in the lower back Cloudy or bloody (pink or red) urine, sediment or mucus in the urine, or bad- smelling urine Last Reviewed Date: 04/26/202219993596-4438 [employer]. All rights reserved. This information is not intended as a substitute for professional medical care. Always follow your healthcare professional's instructions. * Pt Handout (on AVS) - Lainey Ramirez RN - 12/04/2023 5:29 PM EDT Images from the original note were not included. [id number] Singh Catheter Care A Singh catheter is a rubber tube that is placed through the urethra and into the bladder. The urethra is the opening where urine comes out. The catheter helps drain urine from the bladder. There is a small balloon on the end of the tube that is inflated after the catheter is put in place. This keeps the catheter from sliding out of the bladder. A Singh catheter is used when you are unable to pass urine (urinary retention). It's also used whenthere is loss of bladder control (incontinence). It's also used after bladder or prostate surgery. Home care Finish taking any prescribed antibiotic medicine even if you are feeling better before then. It's important to keep bacteria from getting into the collection bag. Don't disconnect the catheter from the collection bag. Use a leg band to secure the drainage tube, so it doesn't pull on the catheter. Don't try to pull or remove your catheter. This will injure your urethra. It must be removed by your healthcare provider or nurse. Drain the collection bag when it becomes full using the drain spout at the bottom of the bag. Follow-up care Follow up with your healthcare provider, or as advised. This is for repeat urine testing and for catheter removal or replacement. When to seek medical advice Call your healthcare provider right away if any of these occur: Fever of 100.4F (38C) or higher, or as directed by your healthcare provider Bladder pain or fullness Abdominal swelling, nausea or vomiting, or back pain Blood or urine leakage around the catheter Bloody urine coming from the catheter (if a new symptom) Catheter falls out Catheter stops draining for 6 hours Weakness, dizziness, or fainting Last Reviewed Date: 08/26/202119993439-3318 [employer]. All rights reserved. This information is not intended as a substitute for professional medical care. Always follow your healthcare professional's instructions. * Pt Handout (on AVS) - Lainey aRmirez RN - 12/04/2023 5:29 PM EDT Images from the original note were not included. [id number] Discharge Instructions: Caring for Your Leg Bag You are going home with a urinary catheter and collection device (drainage bag) in place. One type of collection device is called a leg bag. This is a smaller drainage bag that you can wear on your leg to collect urine during the day. The bag can fit under your clothing. You can move around with greater ease when using a leg bag instead of a larger collection bag. You were shown how to care for your catheter in the hospital. This sheet will help you remember those steps when you are at home. Home care Wash your hands thoroughly before and after you care for your catheter or collection device. Gather your supplies: o Alcohol wipes o Soap and water o Towel and washcloth o Leg strap and leg bag Use soap and water to wash the area where your catheter enters your body. Rinse well. Secure the bag roman to your leg: o Put the leg band high on your thigh with the product label pointing away from your leg. o Stretch the leg band in place and fasten. o Place the catheter tubing over the bag and secure it. You may secure it with a Velcro tab or other method, depending on the product you use. Be sure to leave enough loop in the catheter above the leg band so you won't pull on the tube. o Every 4 to 6 hours, reposition the band. This will prevent pressure from the elastic on your leg.You can do this by changing the bag to the other leg or by raising or lowering the leg band. o Wash the band as often as needed. You can hand wash and dry the leg band. Place the bag in the bag roman. Clean the urine bag end of the catheter and your catheter port with an alcohol wipe. Place a towel under the bag and port to keep urine from dripping onto your leg. Before connecting the outlet valve at the bottom of the bag to the catheter, make sure that it is firmly closed. Flip the valve up toward the bag. It needs to snap firmly in place. Don't tug on the tubing. Be gentle. Attach the urine bag to the end of the catheter. Insert the connector snugly into the catheter port. You can prevent dribbling urine by bending the catheter tubing just below the tip and holding it while you disconnect it from the catheter. Be careful to keep the tip clean while connecting the leg bag tubing to the catheter. This keeps germs from getting into the system. Drain the bag when it's full. To drain the bag, flip the clamp downward. Direct the flexible outlet tube to control the flow of urine. You don?t have to disconnect the leg bag from the catheter toempty it. Raise your leg up to the edge of the toilet to reach the leg bag. Then you can empty the bag directly into the toilet. This way, you won?t need to bend over, which may be uncomfortable. Keep the leg bag clean. Your healthcare provider may advise that you use a certain solution to clean the bag. Solutions that may be advised include: o 2 parts vinegar and 3 parts water o 1 tablespoon of chlorine bleach mixed with a half cup of water Ask your healthcare provider how often you should clean your bag and what solution you should use ?to reduce odor and keep the bag free of germs. Shake the solution a bit and allow it to remain in the bag for 30 minutes. Drain the solution and rinse the bag with cold tap water. Hang the bag to drain and air dry. Remember to keep the drainage bag below the level of your bladder for correct drainage. Follow-up Make a follow-up appointment as directed by your healthcare provider. When to call your healthcare provider Call your healthcare provider right away if you have any of the following: Redness, swelling, or warmth around the catheter entry site Pus draining from your catheter entry site or into the catheter tubing and bag Blood, clots, or floating debris in the urine Nausea and vomiting Shaking chills Fever above 100.4F ( 38C), or as directed by your healthcare provider Pain that is not eased by medicine Catheter that falls out or is dislodged Last Reviewed Date: 10/24/20212021 [employer]. All rights reserved. This information is not intended as a substitute for professional medical care. Always follow your healthcare professional's instructions. * Pt Handout (on AVS) - Nancy Shaikh RN - 12/04/2023 5:18 PM EDT [id number] Docusate Oral Capsule Brands: Colace, Doculase, DOK, Kaopectate Stool Softener, Marin Stool Softener, Surfak Stool Softener Uses For bowel movement. Instructions Take the medicine with 250 mL (1 cup) of water. Keep the medicine at room temperature. Avoid heat and direct light. To reduce constipation, eat high fiber foods, drink plenty of water and exercise. If you forget to take a dose on time, take it as soon as you remember. If it is almost time for thenext dose, do not take the missed dose. Return to your normal schedule. Do not take 2 doses at one time. Tell your doctor and pharmacist about all your medicines. Include prescription and ptnq-qkd-fvhuvoympyzjdhyx, vitamins, and herbal medicines. Tell your doctor if symptoms do not get better or if they get worse. Cautions Tell your doctor and pharmacist if you ever had an allergic reaction to a medicine. Do not use the medication any more than instructed. Tell the doctor or pharmacist if you are , planning to be , or . Side Effects The following is a list of some common side effects from this medicine. Please speak with your doctor about what you should do if you experience these or other side effects. abdominal cramps diarrhea stomach upset or abdominal pain Call your doctor or get medical help right away if you notice any of these more serious side effects: blood in stool A few people may have an allergic reaction to this medicine. Symptoms can include difficulty breathing, skin rash, itching, swelling, or severe dizziness. If you notice any of these symptoms, seek medical help quickly. Extra Please speak with your doctor, nurse, or pharmacist if you have any questions about this medicine. [email or web address].Aircare/[email or web address]/fdbpem/[email or web address] IMPORTANT NOTE: This document tells you briefly how to take your medicine, but it does not tell youall there is to know about it. Your doctor or pharmacist may give you other documents about your medicine. Please talk to them if you have any questions. Always follow their advice. There is a more complete description of this medicine available in [facility] Of [place]. Scan this code on your smartphone or tablet or use the web address below. You can also ask your pharmacist for a printout. If you have any questions, please ask your pharmacist. The display and use of this drug information is subject to Terms of Use. Copyright(c) 2022 [employer]. [employer]. All rights reserved. This information is not intended as a substitute for professional medical care. Always follow your healthcare professional's instructions. * Pt Handout (on AVS) - Lainey Ramirez RN - 12/04/2023 5:18 PM EDT Images from the original note were not included. 11922 Ileus Ileus occurs when there is a problem with motility in the stomach and small or large intestine (bowel). Motility is the movement of food and waste through the digestive tract. Ileus is not caused by a physical blockage (obstruction). Normally, muscles in the bowel valentine squeeze (contract) to move waste along. Signals from nerves tell the muscles when to contract. With ileus, this movement slows down or stops completely. As a result, waste can?t move through the bowels and out of the body. This can cause belly (abdominal) pain and other symptoms. Treatment is needed to restore normal movement and ease symptoms. The digestive tract. Causes of ileus Ileus can be caused by: Abdominal surgery Abdominal infection Injury to blood vessels that supply blood to the abdomen Low levels of sodium or potassium (electrolyte imbalance) Certain medicines, such as opioid pain medicines Certain kidney or lung diseases Certain health problems, such as cystic fibrosis and diabetes Symptoms of ileus Common symptoms of ileus include: Belly swelling or bloating Upset stomach (nausea) and vomiting Belly cramps Constipation or diarrhea Loss of appetite Not able to keep food down Not able to pass stool or gas Diagnosing ileus Your healthcare provider will ask about your symptoms and health history. You?ll also have a physical exam. If your provider thinks you may have ileus, you may have tests to confirm the problem. These can include: Imaging tests. These provide pictures of the bowels. Common tests include X- rays and a CT scan. Blood tests. These are done to check for infection and other problems, such as fluid loss (dehydration). Upper GI (gastrointestinal) series. This test takes X-rays of the upper digestive tract, from the mouth to the small intestine. An X-ray dye (contrast fluid) is used. The dye coats the inside of the upper digestive tract. This makes it show up clearly on X-rays. Treating ileus In most cases, ileus goes away by itself when the main cause clears up. The goal is to manage symptoms until movement in the digestive tract returns to normal. Treatment takes place in a hospital. Aspart of your care, the following may be done: No food or drink is given by mouth usually for 24 to 72 hours. This allows your bowels to rest. An IV (intravenous) line is placed in a vein in your arm or hand. The IV line is used to give fluids (hydration). It may also be used to give medicines. You may need medicines to improve movement in your digestive tract, or to ease pain. You may also need them to treat any underlying infections or conditions you have. A soft, thin, flexible tube (nasogastric tube) is inserted through your nose and into your stomach. The tube is used to remove extra gas and fluid in your stomach and bowels. This helps to ease symptoms, such as pain and swelling. You?ll be watched closely in the hospital until your symptoms get better. Your provider will tell you when you?re well enough to go home. This is often in a few days. In rare cases, problems may occur. Other treatments, such as surgery, may then be done. Your provider will tell you more about other treatments, if needed. Preventing ileus after surgery After surgery, your healthcare team will work hard to prevent you from getting an ileus. They may: Help you get up soon after surgery to move around. This promotes bowel movement. Your team will make sure your pain is managed well so you can get up soon after surgery. Keep track of you closely for an ileus. This includes listening to the sounds in your belly (your "bowel sounds") to make sure your bowels are starting to work normally again. Limit how much fluids and foods you eat until they know your bowels are starting to work again. Your healthcare team will give you specific instructions depending on the type of surgery you had. Follow their instructions. Long-term concerns After treatment, most people fully recover. In some cases, you may need to see your provider for a follow-up appointment. When to call the healthcare provider Call your healthcare provider right away if you have any of these: Fever of 100.4F (38C) or higher, or as advised by your provider Chills Belly swelling or pain that won?t go away Not able to pass stool or gas Upset stomach and vomiting Getting full very easily with only small amounts of food or drink Bleeding from the rectum Black, tarry stool Last Reviewed Date: 10/25/202319997323-8053 [employer]. All rights reserved. This information is not intended as a substitute for professional medical care. Always follow your healthcare professional's instructions. * Pt Handout (on AVS) - Nancy Shaikh RN - 12/04/2023 5:17 PM EDT Images from the original note were not included. 21447-20 Metoclopramide Oral Tablet Brands: Reglan Uses This medicine is used for the following purposes: abnormal bowel function nausea and vomiting stomach acid reflux Instructions You may break or cut the pill if necessary. Take the medicine 30 minutes before a meal. Store at room temperature away from heat, light, and moisture. Do not keep in the bathroom. This medicine can reduce the absorption of other medicines. Talk to your doctor or pharmacist aboutthe best times to use this product. Drug interactions can change how medicines work or increase risk for side effects. Tell your healthcare providers about all medicines taken. Include prescription and bstn-ttu-atjegqp medicines, vitamins, and herbal medicines. Speak with your doctor or pharmacist before starting or stopping any medicine. Tell your doctor if symptoms do not get better or if they get worse. If you need to stop this medicine, your doctor may wish to gradually reduce the dosage before stopping. This medicine may affect your blood sugar levels. If you have diabetes, talk to your doctor before changing the dose of your diabetes medicine. Keep all appointments for medical exams and tests while on this medicine. Cautions This medicine is not recommended for use in children younger than 18. Tell your doctor and pharmacist if you ever had an allergic reaction to a medicine. This medicine is associated with a rare but very serious medical condition. Please speak with your doctor about symptoms you should look out for while on this medicine. Notify your doctor immediatelyif you develop those symptoms. Do not use the medication any more than instructed. If possible, avoid using with alcohol, marijuana, or other medicines that can cause dizziness or drowsiness. These include allergy/cold products, muscle relaxers, sleep aids, and pain relievers. Your ability to stay alert or to react quickly may be impaired by this medicine. Do not drive or operate machinery until you know how this medicine will affect you. Tell the doctor or pharmacist if you are , planning to be , or . Do not share this medicine with anyone who has not been prescribed this medicine. Some patients have serious side effects from this medicine. Ask your pharmacist to show you the information from the Food and Drug Administration (FDA) and discuss it with you. Side Effects The following is a list of some common side effects from this medicine. Please speak with your doctor about what you should do if you experience these or other side effects. agitated feeling or trouble sleeping diarrhea dizziness or drowsiness lack of energy and tiredness headaches Call your doctor or get medical help right away if you notice any of these more serious side effects: breast pain or swelling confusion depression or feeling sad swelling of the legs, feet, and hands face appearing mask-like high fever hallucinations (unusual thoughts, seeing or hearing things that are not real) fast or irregular heart beats menstruation changes (missed or fewer periods) uncontrollable movement of face, tongue, arms or legs muscle aches, spasms or abnormal movements muscle trembling shakiness suicidal thoughts A few people may have an allergic reaction to this medicine. Symptoms can include difficulty breathing, skin rash, itching, swelling, or severe dizziness. If you notice any of these symptoms, seek medical help quickly. Extra Please speak with your doctor, nurse, or pharmacist if you have any questions about this medicine. [email or web address].Infiniu.[email or web address]/[email or web address]/fdbpem/90 IMPORTANT NOTE: This document tells you briefly how to take your medicine, but it does not tell youall there is to know about it. Your doctor or pharmacist may give you other documents about your medicine. Please talk to them if you have any questions. Always follow their advice. There is a more complete description of this medicine available in [facility] [place]. Scan this code on your smartphone or tablet or use the web address below. You can also ask your pharmacist for a printout. If you have any questions, please ask your pharmacist. The display and use of this drug information is subject to Terms of Use. Copyright(c) 2022 [employer]. [employer]. All rights reserved. This information is not intended as a substitute for professional medical care. Always follow your healthcare professional's instructions. * Pt Handout (on AVS) - Nancy Shaikh RN - 12/04/2023 5:17 PM EDT Images from the original note were not included. [id number] Ondansetron Disintegrating Oral Tablet Uses For nausea or vomiting. Instructions Let the medicine dissolve on your tongue and then swallow. Keep the medicine at room temperature. Avoid heat and direct light. Tell your doctor if you have severe or persistent sweating, diarrhea or vomiting. These can increase your risk of a serious side effect. If you are using this medicine regularly, it is important to take each dose of medicine on time. Keep taking the medicine even if you feel well. If you forget to take a dose on time, take it as soon as you remember. If it is almost time for thenext dose, do not take the missed dose. Return to your normal schedule. Do not take 2 doses at one time. Drug interactions can change how medicines work or increase risk for side effects. Tell your healthcare providers about all medicines taken. Include prescription and dygz-qlx-rgdusmu medicines, vitamins, and herbal medicines. Speak with your doctor or pharmacist before starting or stopping any medicine. Tell your doctor if symptoms do not get better or if they get worse. Keep all appointments for medical exams and tests while on this medicine. Cautions Tell your doctor and pharmacist if you ever had an allergic reaction to a medicine. Some patients taking this medicine have experienced serious side effects. Please speak with your doctor to understand the risks and benefits associated with this medicine. Do not use the medication any more than instructed. This medicine may cause dizziness or fainting. Do not stand or sit up quickly. Your ability to stay alert or to react quickly may be impaired by this medicine. Do not drive or operate machinery until you know how this medicine will affect you. Please check with your doctor before drinking alcohol while on this medicine. Call the doctor if there are any signs of confusion or unusual changes in behavior. It is unknown if this medicine passes into breast milk. Ask your doctor before . During , this medicine should be used only when clearly needed. Talk to your doctor about the risks and benefits. Do not take Paulina's wort while on this medicine. Do not share this medicine with anyone who has not been prescribed this medicine. Side Effects The following is a list of some common side effects from this medicine. Please speak with your doctor about what you should do if you experience these or other side effects. constipation dizziness or drowsiness lack of energy and tiredness headaches lightheadedness Call your doctor or get medical help right away if you notice any of these more serious side effects: agitated feeling or trouble sleeping loss of balance chest pain diarrhea fainting hallucinations (unusual thoughts, seeing or hearing things that are not real) fast, irregular, or slow heartbeat muscle aches, spasms or abnormal movements muscle trembling restlessness stomach pain blurring or changes of vision severe or persistent vomiting A few people may have an allergic reaction to this medicine. Symptoms can include difficulty breathing, skin rash, itching, swelling, or severe dizziness. If you notice any of these symptoms, seek medical help quickly. Extra Please speak with your doctor, nurse, or pharmacist if you have any questions about this medicine. [email or web address].[email or web address]/fdbpem/[email or web address] IMPORTANT NOTE: This document tells you briefly how to take your medicine, but it does not tell youall there is to know about it. Your doctor or pharmacist may give you other documents about your medicine. Please talk to them if you have any questions. Always follow their advice. There is a more complete description of this medicine available in [facility] [place]. Scan this code on your smartphone or tablet or use the web address below. You can also ask your pharmacist for a printout. If you have any questions, please ask your pharmacist. The display and use of this drug information is subject to Terms of Use. Copyright(c) 2022 [employer]. [employer]. All rights reserved. This information is not intended as a substitute for professional medical care. Always follow your healthcare professional's instructions. * Pt Handout (on AVS) - Nancy Shaikh RN - 12/04/2023 5:16 PM EDT Images from the original note were not included. [id number] Oxycodone Oral Tablet 5 mg Uses For pain. Instructions Some brands of this medicine should be swallowed whole while other brands may be crushed. Ask your pharmacist how you should take your medicine. This medicine may be taken with or without food. Swallow with a full glass (8 oz) of water unless your doctor gives you different instructions. Store at room temperature away from heat, light, and moisture. Do not keep in the bathroom. Please ask your doctor, nurse, or pharmacist how to discard unused medicines safely. To reduce constipation, eat high fiber foods, drink plenty of water and exercise. Avoid grapefruit and grapefruit juice while on this medicine. Drug interactions can change how medicines work or increase risk for side effects. Tell your healthcare providers about all medicines taken. Include prescription and mcis-twt-wgjitfr medicines, vitamins, and herbal medicines. Speak with your doctor or pharmacist before starting or stopping any medicine. Tell your doctor if symptoms do not get better or if they get worse. Parts of this medicine may come out in the stool. This is normal. Cautions This medicine has an opioid. Opioids help many people but may cause addiction, especially if used for a long time. The addiction risk is higher if you have a substance use disorder (overuse of or addiction to drugs or alcohol). Ask your doctor about the benefits and risks. Ask your doctor or pharmacist if you should have naloxone on hand to treat opioid overdose. Teach your family or household members about the signs of an opioid overdose and how to treat it. If you stop this medicine suddenly after using it for a long time, you may have withdrawal. Your doctor may slowly lower your dose before stopping it. Tell your doctor right away if you have symptoms, such as unusual sweating, watering eyes, runny nose, chills, diarrhea, yawning, muscle aches, restlessness, anxiety, trouble sleeping, or thoughts of suicide. Tell your doctor and pharmacist if you ever had an allergic reaction to a medicine. Do not use the medication any more than instructed. If possible, avoid using with alcohol, marijuana, or other medicines that can cause dizziness or drowsiness. These include allergy/cold products, muscle relaxers, sleep aids, and pain relievers. Your ability to stay alert or to react quickly may be impaired by this medicine. Do not drive or operate machinery until you know how this medicine will affect you. This medicine passes into breast milk. Ask your doctor before . This medicine can hurt a new baby in the womb. If you become while on this medicine, tell your doctor immediately. Your doctor may switch you to a different medicine. This medicine should be used with caution in patients with breathing difficulties. Call your doctor right away if you notice slow or shallow breathing. Do not share this medicine with anyone who has not been prescribed this medicine. Some patients have serious side effects from this medicine. Ask your pharmacist to show you the information from the Food and Drug Administration (FDA) and discuss it with you. Side Effects The following is a list of some common side effects from this medicine. Please speak with your doctor about what you should do if you experience these or other side effects. decreased appetite constipation dizziness or drowsiness lightheadedness nausea and vomiting Call your doctor or get medical help right away if you notice any of these more serious side effects: agitated feeling or trouble sleeping decreased awareness or responsiveness breathing interruption during sleep shallow, irregular breathing changes in memory, mood, or thinking confusion fainting hallucinations (unusual thoughts, seeing or hearing things that are not real) seizures severe stomach or bowel pain unusual or unexplained tiredness or weakness difficulty or discomfort urinating weight loss A few people may have an allergic reaction to this medicine. Symptoms can include difficulty breathing, skin rash, itching, swelling, or severe dizziness. If you notice any of these symptoms, seek medical help quickly. Extra Please speak with your doctor, nurse, or pharmacist if you have any questions about this medicine. [email or web address].[email or web address]/[email or web address]/fdbpem/[email or web address] IMPORTANT NOTE: This document tells you briefly how to take your medicine, but it does not tell youall there is to know about it. Your doctor or pharmacist may give you other documents about your medicine. Please talk to them if you have any questions. Always follow their advice. There is a more complete description of this medicine available in [facility] [place]. Scan this code on your smartphone or tablet or use the web address below. You can also ask your pharmacist for a printout. If you have any questions, please ask your pharmacist. The display and use of this drug information is subject to Terms of Use. Copyright(c) 2022 [employer]. [employer]. All rights reserved. This information is not intended as a substitute for professional medical care. Always follow your healthcare professional's instructions. * Ancillary Progress Note - Gareth aWlker RN - 12/04/2023 2:33 PM EDT CARE MANAGEMENT - ADULT TRANSITION NOTE [facility] [address] Name: Josiah Gutiérrez Location: [facility] [id number] Date: 12/04/2023 Time: 2:33 PM Risk Stratification Risk Stratification Psycho Social / Medical Concerns Identified: Adjustment to illness/injury (11/28/23 1013) Accessed [employer] to connect patients to social care resources: No (11/28/23 1013) OBRA or OPTIONS needed for placement: No (11/28/23 1013) Readmission Risk Score: 18.2 (12/04/23 1200) AM-PAC Score With Stairs : 18 (12/04/23 0840) Caregiver Information Patient Contacts Name Relation Home Work Mobile Roma Gutiérrez Spouse [phone] Transition of Care Checklist Narrative: Discussed during IDT. No anticipated DC at this time. CM will continue to follow for DC needs. Anticipated Transportation at Discharge: spouse Patient/Family Expectations: home with spouse and home health Transition Planning Additional Considerations: Care Management will continue to monitor and assist with discharge planning needs * Progress Notes - Non-Billable - Yumiko Zabala PA-C - 12/04/2023 7:39 AM EDT PROGRESS NOTE - Urology [facility]-[address] [place] [address] Name: Josiah Gutiérrez Location: [facility] [id number] Date: 12/04/2023 Time: 7:39 AM Procedure: Right-sided hand assisted laparoscopic nephroureterectomy Date of Procedure: 11/27/23 POD: 7 SUBJECTIVE: Patient examined at bedside this morning. He stated he is feeling okay but better than previously. He noted he had 1 episode of emesis last evening follow up by 2 large bowel movements. He stated he tolerated clear liquids yesterday without nausea or vomiting. He noted [place] He stated he has no abdominal pain, nausea, or vomiting at this time. OBJECTIVE: Most Recent Vital Signs: BP: 147 mmHg/71 mmHg (12/04/23728) Pulse: 72 (12/04/23728) Temp: 36 C (12/04/23728) Temp Summary: Temp Min: 35.4 C (95.8 F) Max: 36.2 C (97.2 F) SpO2: 97 % (12/04/23728) O2 flow rate: 1 L/MIN (11/27/23 5428) Supplemental O2 Delivery: Room Air, None (12/04/23728) Vital Signs Last 24 Hours: Systolic BP: Most Recent Systolic BP Av mmHg Min: 137 mmHg Max: 154 mmHg Temperature: Most Recent Temperature Av.9 C Min: 35.44 C Max: 36.22 C Pulse: Pulse Av.6 Min: 67 Max: 87 Respirations: Resp Av Min: 16 Max: 16 SpO2: SpO2 Av.1 % Min: 95 % Max: 98 % Intake/Output Summary (Last 24 hours) at 12/04/2023 0739 Last data filed at 12/04/2023 0640 Gross per 24 hour Intake 1612.88 ml Output 1000 ml Net 612.88 ml Urine Output Last 8 Hours: 850 mL, NG tube output of 150-200 per shift over final shifts with ice chips being taken PO. PHYSICAL EXAMINATION: General: alert, awake, oriented to person and place and situation, no distress, overweight Heart: regular rate, regular rhythm Chest: clear to auscultation bilaterally Abdomen: soft, non-tender, incision is clean and without evidence of infection, minimal distention Back: right costo-vertebral angle tenderness, mild : singh in, clear urine Extremities: no edema CURRENT HOSPITAL MEDICATIONS: Note that completed medications (per the MAR) continue to display for 24 hours. Ordered medicationsto be given in the future also display. Current Facility-Administered Medications Medication Dose Route Frequency Provider omeprazole (PriLOSEC) cap 20 mg 20 mg Oral Before breakfast Sushant Lozada [facility]ly [facility] Acetaminophen (Tylenol) 160 MG/5ML oral liquid 975 mg 975 mg Oral Q6H Roberto Edwards MD LORazepam (Ativan) tab 0.25 mg 0.25 mg Oral Q8H PRN Roberto Edwards MD meclizine (Antivert) tab 25 mg 25 mg Oral TID PRN Roberto Edwards MD phenol (chlorASEPTIC) spray 3 [place] 3 [place] Oral Q4H PRN Roberto Edwards MD ceFAZolin in dextrose (Ancef) ivpb 1 g 1 g IV Piggyback Q8H Roberto Edwards MD NSS infusion Intravenous Continuous Roberto Edwards MD Bisacodyl (Dulcolax) supp 10 mg 10 mg Rectal Q12H PRN Roberto Edwards MD Albuterol Sulfate (Proventil) (2.5 MG/3ML) 0.083% inhalation solution 2.5 mg 2.5 mg Nebulizer Q4H PRN Roberto Edwards MD buPROPion (Wellbutrin) tab 50 mg 50 mg Oral BID(AM/PM) Roberto Edwards MD check patch placement order Does Not Apply Q Shift Roberto Edwards MD diphenhydrAMINE (Benadryl) inj 25 mg 25 mg IV Push Q6H PRN Roberto Edwards MD Docusate Sodium (Colace) cap 100 mg 100 mg Oral BID(AM/PM) Roberto Edwards MD Finasteride (Proscar) tab 5 mg 5 mg Oral Daily(AM) Roberto Edwards MD fluticasone (Flonase) nasal inhaler 2 [place] 2 [place] Each Nostril Daily(AM) Roberto Edwards MD hEParin inj 5,000 Units 5,000 Units Subcutaneous Q12H Roberto Edwards MD hydrOXYzine HCl tab 25 mg 25 mg Oral Daily PRN Roberto Edwards MD hyoscyamine (Levsin) tab 0.125 mg 0.125 mg Oral Q4H PRN Roberto Edwards MD Lidocaine urethral/mucosal 2 % gel Topical Q4H PRN Roberto Edwards MD LORazepam (Ativan) tab 0.25 mg 0.25 mg Oral QHS Yumiko Zabala PA-C melatonin tab 3 mg 3 mg Oral HS PRN Roberto Edwards MD Menthol (Madison) cough drop 1 Lozenge 1 Lozenge Oral Q2H PRN Roberto Edwards MD Metaxalone (Skelaxin) tab 800 mg 800 mg Oral TID PRN Roberto Edwards MD metoclopramide (Reglan) tab 10 mg 10 mg Oral Q6H PRN Roberto Edwards MD Or metoclopramide (Reglan) inj 10 mg 10 mg IV Push Q6H PRN Roberto Edwards MD mirtazapine ODT (Remeron Soltab) tab 15 mg 15 mg Oral HS Roberto Edwards MD naloxone (Narcan) 0.4 MG/ML inj 0.08 mg 0.08 mg IV Push PRN Roberto Edwards MD ondansetron ODT (Zofran) tab 4 mg 4 mg On Tongue Q6H PRN Roberto Edwards MD Or ondansetron (Zofran) inj 4 mg 4 mg IV Push Q6H PRN Roberto Edwards MD oxybutynin (Ditropan) tab 5 mg 5 mg Oral Q8H PRN Roberto Edwards MD oxyCODONE (Oxy IR) tab 5 mg 5 mg Oral Q4H PRN Roberto Edwards MD Polyethylene Glycol 3350 (Miralax) oral powder 17 g 1 Packet Oral HS Roberto Edwards MD propranolol (Inderal) tab 15 mg 15 mg Oral BID (INP ADJ TIME) Roberto Edwards MD Scopolamine (Transderm Scop) patch 1 mg 1 Patch Transdermal Q3 Days Roberto Edwards MD Simethicone (Mylicon) chew tab 80 mg 80 mg Oral Q6H PRN Roberto Edwards MD tamsulosin (Flomax) cap 0.4 mg 0.4 mg Oral Daily(AM) Roberto Edwards MD LABS: CBC Lab Results Component Value Date/Time WBC 9.75 12/04/2023 04:46 AM WBC 9.45 05/09/2020 12:32 PM HGB 12.7 (L) 12/04/2023 04:46 AM HGB 17.1 09/24/2022 12:00 AM HGB 16.4 05/09/2020 12:32 PM HCT 37.9 (L) 12/04/2023 04:46 AM HCT 46.5 05/09/2020 12:32 PM PLT 228 12/04/2023 04:46 AM PLT 248 05/09/2020 12:32 PM BMP Lab Results Component Value Date/Time NA 137 12/04/2023 04:46 AM NA 143 07/28/2020 09:03 AM POTASSIUM 3.6 12/04/2023 04:46 AM POTASSIUM 4.0 09/24/2022 12:00 AM POTASSIUM 4.1 07/28/2020 09:03 AM CL 102 12/04/2023 04:46 AM CL 106 07/28/2020 09:03 AM CO2 25 12/04/2023 04:46 AM CO2 25 07/28/2020 09:03 AM BUN 19 12/04/2023 04:46 AM BUN 14 07/28/2020 09:03 AM CREAT 1.2 12/04/2023 04:46 AM CREAT 0.82 09/24/2022 12:00 AM CREAT 0.9 07/28/2020 09:03 AM Ca, Mg, Phos Lab Results Component Value Date/Time CA 8.0 (L) 12/04/2023 04:46 AM CA 9.4 07/28/2020 09:03 AM MG 2.4 08/07/2023 10:43 AM IMPRESSION: Postoperative day # 7 s/p right-sided hand assisted laparoscopic nephroureterectomy. PLAN: - Advance diet to full liquids - Continue IVF and IV ancef - Encouraged OOB, ambulation, and incentive spirometry - In setting of patient's prolonged hospitalization, he may not require acute rehab rather OP therapy or HH - Will continue AM labs and serial abdominal exams Patient discussed with Dr. Edwards. Yumiko Zabala PA-C * Care Plan - Joanna Tucker RN - 12/04/2023 5:10 AM EDT Clinical Goal(s): Pt will have no emesis this shift (12/03/232016) Possible barriers to meeting goal(s)/advancing plan of care: acuity of illness Stability of the patient: Moderately stable - low risk of patient condition declining or worsening Summary regarding today's goal(s): Not Met: Pt had one episode of emesis, but did have 2 large bowel movements. Recommendations: continue with plan of care. * Care Plan - Hernandez Nick RN - 12/03/2023 5:33 PM EDT Clinical Goal(s): Patient will not have any emesis this shift. (12/03/23 0800) Possible barriers to meeting goal(s)/advancing plan of care: NG tube removed Stability of the patient: Moderately stable - low risk of patient condition declining or worsening Summary regarding today's goal(s): Met: Patient did not have any emesis this shift Recommendations: continue to monitor for GI upset, continue PRN medication as needed * Ancillary Progress Note - Yuly Carson, PT - 12/03/2023 2:45 PM EDT PROGRESS NOTE - Physical Therapy [facility]-[address] [address] Name: Josiah Gutiérrez Location: [facility] [id number]/D Date: 12/03/2023 Time: 3:04 PM Josiah Gutiérrez is a/an 82 year old male. Patient Status: Inpatient Insurance: Payor: MEDICARE Plan: MEDICARE A AND B Product Type: *No Product type* Payor: [facility] [place] ([id number]) Plan: [employer]ACTIV MEDICARE SUPPLEMENT Product Type: *No Product type* Patient Seen: at bedside Patient Identified By: Name, ID Band and Date Diagnosis: Gait dysfunction, decreased mobility, s/p Right-sided hand assisted laparoscopic radicalnephroureterectomy, intravesical instillation of mitomycin-C (11/28/231047) Status of treatment: Treatment completed (12/03/231444) Orders: PT evaluation and treatment (11/28/231047) Weight Bearing Status: Weight bearing as tolerated (12/03/231444) Precautions: Alarms;Falls;Singh;Safety (12/03/231444) Total Treatment Time--free text: 14 minutes (12/03/231444) Subjective: Pt agreeable to PT treatment session Pain: Patient has complaints of pain. Pain located abdomen- not rated. P.T. Bed Mobility Sit-Supine: Supervision (12/03/231444) Transfers Sit-Stand: Supervision (12/03/231444) Stand-Sit: Supervision (12/03/231444) Ambulation: Distance ambulated (feet): 300 ft Assistive Device: Rolling walker Assist: Supervision Stair Training: Number of stairs: 4 Number of handrails: 1 Level of Assistance: contact guard assistance Balance Sit (Static): Good (12/03/231444) Sit (Dynamic): Good (12/03/231444) Stand (Static): Fair (12/03/231444) Stand (Dynamic): Fair (12/03/231444) Patient and or Family Goal(s): to get well Topic of Education: Safety with mobility and Fall prevention Method of Education: Verbal discussion and explanation provided to patient: verbalized understanding and or agreement of this information Treatment Provided: Gait Training 14 minutes: gait training with rolling walker stair training Alarm Status Patient positioned in: Bed (12/03/231444) With: Bed alarm intact and functioning and call carrera in reach (12/03/231444) Patient Education Review of Precautions: Safety;Fall (12/03/231444) Safety Awareness: Needs cueing supervision (12/03/231444) Preferred learning method: Combination (12/03/231444) Barriers to learning: Medical Status;Hearing (12/03/231444) Method of Education: Verbalized to patient (12/03/231444) Assessment: Josiah Gutiérrez was able to transfer and ambulate 300 ft with rolling walker and supervision and navigate 4 steps with rail and contact guard assist. [facility] mobility score remains at 18. Deficits requiring P.T. treatment needs: Safety;Mobility;Balance;Weakness (11/28/23 1048) Equipment needs: Rolling walker (12/03/231444) Plan: Continue with current treatment plan established on evaluation. AM PAC Score with Stairs: 18 * Ancillary Progress Note - Gareth Walker RN - 12/03/2023 11:38 AM EDT CARE MANAGEMENT - ADULT TRANSITION NOTE [facility]-[address] [address] Name: Josiah Gutiérrez Location: [facility] [id number]/D Date: 12/03/2023 Time: 11:38 AM Risk Stratification Risk Stratification Psycho Social / Medical Concerns Identified: Adjustment to illness/injury (11/28/23 1013) [facility] to [facility] patients to [facility] care resources: No (11/28/23 101) OBRA or OPTIONS needed for placement: No (11/28/23 101) Readmission Risk Score: 20.31 (12/03/23 0801) AM-PAC Score With Stairs : 18 (12/03/23 0800) Caregiver Information Patient Contacts Name Relation Home Work Mobile Roma Gutiérrez Spouse [phone] Transition of Care Checklist Narrative: Discussed during IDT. No anticipated DC at this time. Spoke with patient and unsure if he needs to go to rehab on DC. CM will continue to follow. Phone call to Roma to discuss DC plans. No answer. Message left on voicemail and return call requested. Contact info given. 1220- Spoke with regarding discharge plans and she is on her way into the hospital now and will let CM know what she would like for DC as far as rehab vs home with home health. 1245 Received return call from and patient and feel he can go home on DC with home health. Anticipated Transportation at Discharge: spouse Patient/Family Expectations: home with home health vs rehab Transition Planning Additional Considerations: Care Management will continue to monitor and assist with discharge planning needs * Progress Notes - Non-Billable - Roberto Edwards MD - 12/03/2023 8:57 AM EDT PROGRESS NOTE - Urology [facility]-[address] [address] Name: Josiah Gutiérrez Location: [facility] [id number]-[id number]/D Date: 12/03/2023 Time: 8:57 AM SUBJECTIVE: 82-year-old male postoperative today #6 status post right-sided hand assisted laparoscopic nephroureterectomy complicated by postoperative ileus. Patient reports NG tube fell out last night, no emesis since. Patient notes some improvement in appetite, not feeling overly nauseous. Patient activity has included ambulation. Patient diet is NPO. Bowel activity is flatus and BM. OBJECTIVE: Most Recent Vital Signs: BP: 149 mmHg/69 mmHg (12/03/23650) Pulse: 70 (12/03/23650) Temp: 35.39 C (12/03/23650) Temp Summary: Temp Min: 35.4 C (95.7 F) Max: 36.1 C (97 F) SpO2: 97 % (12/03/23650) O2 flow rate: 1 L/MIN (11/27/23 1758) Supplemental O2 Delivery: Room Air, None (12/03/23 0800) Vital Signs Last 24 Hours: Systolic BP: Most Recent Systolic BP Av.1 mmHg Min: 117 mmHg Max: 149 mmHg Temperature: Most Recent Temperature Av.8 C Min: 35.39 C Max: 36.11 C Pulse: Pulse Av.4 Min: 57 Max: 82 Respirations: Resp Av.7 Min: 16 Max: 18 SpO2: SpO2 Av % Min: 95 % Max: 97 % Intake/Output Summary (Last 24 hours) at 12/03/2023 0857 Last data filed at 12/03/2023 0650 Gross per 24 hour Intake 1735.72 ml Output 1850 ml Net -114.28 ml Urine Output Last 8 Hours: 850 mL, NG tube output of 150-200 per shift over final shifts with ice chips being taken PO. PHYSICAL EXAMINATION: General: alert, awake, oriented to person and place and situation, no distress, overweight Heart: regular rate, regular rhythm Chest: clear to auscultation bilaterally Abdomen: soft, non-tender, incision is clean and without evidence of infection, improved distention Back: right costo-vertebral angle tenderness, mild : singh in, clear urine Extremities: no edema CURRENT HOSPITAL MEDICATIONS: Note that completed medications (per the MAR) continue to display for 24 hours. Ordered medicationsto be given in the future also display. Current Facility-Administered Medications Medication Dose Route Frequency Provider Acetaminophen (Tylenol) 160 MG/5ML oral liquid 975 mg 975 mg Oral Q6H Roberto Edwards MD LORazepam (Ativan) tab 0.25 mg 0.25 mg Oral Q8H PRN Roberto Edwards MD meclizine (Antivert) tab 25 mg 25 mg Oral TID PRN Roberto Edwards MD phenol (chlorASEPTIC) spray 3 [place] 3 [place] Oral Q4H PRN Roberto Edwards MD ceFAZolin in dextrose (Ancef) ivpb 1 g 1 g IV Piggyback Q8H Roberto Edwards MD Pantoprazole (Protonix) inj 40 mg 40 mg IV Push Before breakfast Reagan Pablo MD NSS infusion Intravenous Continuous Roberto Edwards MD Bisacodyl (Dulcolax) supp 10 mg 10 mg Rectal Q12H PRN Roberto Edwards MD Albuterol Sulfate (Proventil) (2.5 MG/3ML) 0.083% inhalation solution 2.5 mg 2.5 mg Nebulizer Q4H PRN Roberto Edwards MD buPROPion (Wellbutrin) tab 50 mg 50 mg Oral BID(AM/PM) Roberto Edwards MD check patch placement order Does Not Apply Q Shift Roberto Edwards MD diphenhydrAMINE (Benadryl) inj 25 mg 25 mg IV Push Q6H PRN Roberto Edwards MD Docusate Sodium (Colace) cap 100 mg 100 mg Oral BID(AM/PM) Roberto Edwards MD Finasteride (Proscar) tab 5 mg 5 mg Oral Daily(AM) Roberto Edwards MD fluticasone (Flonase) nasal inhaler 2 [place] 2 [place] Each Nostril Daily(AM) Roberto Edwards MD hEParin inj 5,000 Units 5,000 Units Subcutaneous Q12H Roberto Edwards MD hydrOXYzine HCl tab 25 mg 25 mg Oral Daily PRN Roberto Edwards MD hyoscyamine (Levsin) tab 0.125 mg 0.125 mg Oral Q4H PRN Roberto Edwards MD Lidocaine urethral/mucosal 2 % gel Topical Q4H PRN Roberto Edwards MD LORazepam (Ativan) tab 0.25 mg 0.25 mg Oral QHS Yumiko Zabala PA-C melatonin tab 3 mg 3 mg Oral HS PRN Roberto Edwards MD Menthol (Madison) cough drop 1 Lozenge 1 Lozenge Oral Q2H PRN Roberto Edwards MD Metaxalone (Skelaxin) tab 800 mg 800 mg Oral TID PRN Roberto Edwards MD metoclopramide (Reglan) tab 10 mg 10 mg Oral Q6H PRN Roberto Edwards MD Or metoclopramide (Reglan) inj 10 mg 10 mg IV Push Q6H PRN Roberto Edwards MD mirtazapine ODT (Remeron Soltab) tab 15 mg 15 mg Oral HS Roberto Edwards MD naloxone (Narcan) 0.4 MG/ML inj 0.08 mg 0.08 mg IV Push PRN Roberto Edwards MD ondansetron ODT (Zofran) tab 4 mg 4 mg On Tongue Q6H PRN Roberto Edwards MD Or ondansetron (Zofran) inj 4 mg 4 mg IV Push Q6H PRN Roberto Edwards MD oxybutynin (Ditropan) tab 5 mg 5 mg Oral Q8H PRN Roberto Edwards MD oxyCODONE (Oxy IR) tab 5 mg 5 mg Oral Q4H PRN Roberto Edwards MD Polyethylene Glycol 3350 (Miralax) oral powder 17 g 1 Packet Oral HS Roberto Edwards MD propranolol (Inderal) tab 15 mg 15 mg Oral BID (INP ADJ TIME) Roberto Edwards MD Scopolamine (Transderm Scop) patch 1 mg 1 Patch Transdermal Q3 Days Roberto Edwards MD Simethicone (Mylicon) chew tab 80 mg 80 mg Oral Q6H PRN Roberto Edwards MD tamsulosin (Flomax) cap 0.4 mg 0.4 mg Oral Daily(AM) Roberto Edwards MD LABS: Labs reviewed as indicated below: Creatinine Results: Lab Results Component Value Date/Time CREATININE - [facility] 1.2 12/03/2023 04:37 AM CREATININE - [facility] 1.3 (H) 12/02/2023 05:10 AM CREATININE - [facility] 1.5 (H) 12/01/2023 06:03 AM CREATININE - [facility] 0.9 07/28/2020 09:03 AM CREATININE - [facility] 0.8 05/09/2020 12:32 PM CREATININE - [facility] 0.8 01/17/2017 01:18 PM CREATININE, RANDOM URINE - [facility] 148 11/06/2023 08:58 AM CREATININE, RANDOM URINE - [facility] 153 03/22/2023 08:21 AM CREATININE, RANDOM URINE - [facility] 143 02/14/2021 04:48 PM CREATININE-OUTSIDE LAB 0.82 09/24/2022 12:00 AM CREATININE-OUTSIDE LAB 0.8 05/28/2022 12:00 AM CREATININE-OUTSIDE LAB 0.8 05/25/2021 12:00 AM CBC Results: Results for orders placed or performed during the hospital encounter of 11/27/23 CBC Result Value Ref Range WBC 8.60 4.00 - 10.80 K/uL RBC 4.05 4.50 - 5.25 M/uL HGB 13.0 (L) 14.0 - 16.8 g/dL HCT 38.0 (L) 40.0 - 48.4 % MCV 93.8 82.0 - 99.5 fL MCH 32.1 27.0 - 34.0 pg MCHC 34.2 32.0 - 36.0 g/dL RDW 12.6 11.5 - 15.5 % PLT 229 140 - 400 K/uL MPV 9.5 6.6 - 11.1 fL nRBCs 0 <=0 /100 WBCs IMPRESSION: Postoperative day # 6 s/p right-sided hand assisted laparoscopic nephroureterectomy. PLAN: Patient's seems to be improving. Will slowly readvanced diet with sips of clears to clears over thecourse of the day. If the patient does well with his will consider further advancement tomorrow. Atthis point, considering length of admission, I suspect patient should be stable for discharge home rather than rehabilitation. Treatment plan & pathophysiology of postoperative ileus are reviewed. Patient vocalizes good understanding of the treatment plan. * Care Plan - Joanna Tucker RN - 12/03/2023 5:14 AM EDT Clinical Goal(s): Pt will rest well between cares (12/02/23 2100) Possible barriers to meeting goal(s)/advancing plan of care: acuity of illness Stability of the patient: Moderately stable - low risk of patient condition declining or worsening Summary regarding today's goal(s): Met: Pt rested well between cares Recommendations: cluster cares to promote periods of rest * Communication - Yumiko Zabala PA-C - 12/02/2023 4:15 PM EDT Patient seen in PM rounds, and he stated he is feeling well this afternoon. He noted he ambulated afew laps in the hallway. He noted he has not experienced any nausea or vomiting today. He noted he has passed flatus 3-5 times today without a BM. He has been eating ice chips throughout the day and nursing noted it is a significant amount. He stated they help with throat irritation. Singh has clear yellow urine. Abdominal exam similar to this AM with improving distention and no tenderness. New dressing applied to drain site. He denied fever, chills, nausea, vomiting, and abdominal pain. I would recommend continuing NGT and NPO for now. May try for clamp trial and advancing diet in the AM pending symptoms and exam. Will follow in the AM. Patient to be discussed with Dr. Edwards. Yumiko Zabala PA-C * Care Plan - Santa Strickland RN - 12/02/2023 3:25 PM EDT Clinical Goal(s): Patient will ambulate at least two laps within the hallway during this shift (12/02/23 08) Possible barriers to meeting goal(s)/advancing plan of care: Pain, current diagnosis Stability of the patient: Moderately stable - low risk of patient condition declining or worsening Summary regarding today's goal(s): Met: Patient was able to ambulate more than two laps during this shift Recommendations: Continue fall precautions, treat pain per MAR, encourage ambulation * Ancillary Progress Note - Amadou Jacques PT - 12/02/2023 3:16 PM EDT PROGRESS NOTE - Physical Therapy [facility] [address] Name: Josiah Gutiérrez Location: [facility] [id number]-[id number]/D Date: 12/02/2023 Time: 1515 Josiah Gutiérrez is a/an 82 year old male. Patient Status: Inpatient Insurance: Payor: MEDICARE Plan: MEDICARE A AND B Product Type: *No Product type* Payor: [facility] ([place]) Plan: SECURITY 65 MEDICARE SUPPLEMENT Product Type: *No Product type* Patient Seen: at bedside, nursing cleared patient for therapy Patient Identified By: Name, ID Band and Date Diagnosis: Gait dysfunction, decreased mobility, s/p Right-sided hand assisted laparoscopic radicalnephroureterectomy, intravesical instillation of mitomycin-C (11/28/231047) Status of treatment: Treatment completed (12/02/231515) Orders: PT evaluation and treatment (11/28/23 104) Weight Bearing Status: Weight bearing as tolerated (11/30/23 1110) Precautions: NG tube;Alarms;Falls;Safety;Singh (12/02/231515) Total Treatment Time--free text: 16 minutes (12/02/231515) Subjective: Pt expressed willingness to participate in PT session. Pain: No complaints of pain P.T. Bed Mobility Roll (Right): Supervision (11/29/23 110) Roll (Left): Supervision (11/29/23 1103) Supine-Sit: Minimal Assistance (11/29/23 110) Sit-Supine: Contact Guard (11/29/23 1103) Transfers Sit-Stand: Supervision (12/02/231515) Stand-Sit: Supervision (12/02/231515) W/C-Bed/Mat: Contact Guard (11/30/23 1110) Ambulation: Distance ambulated (feet): 348 Assistive Device: Rolling walker Assist: Supervision 1 Gait Characteristics: Mildly decreased step length, impulsive needs cuing for proper positioning prior to sitting on chair and directions to prevent IV tubing and singh tubing from becoming tangled, no heel strike/foot flat R LE, steppage gait L LE, currently not safe to transfer or amb w/o assistance. Stair Training: Number of stairs: 4 steps twice Number of handrails: 1 railing Level of Assistance: minimal assistance 1 Balance Sit (Static): Good (12/02/231515) Sit (Dynamic): Good (12/02/231515) Stand (Static): Fair (12/02/231515) Stand (Dynamic): Fair (12/02/231515) Patient and or Family Goal(s): to get well and to return home Topic of Education: Safety with mobility, Goals/plan of care, Use of assistive device, Stair training, and Fall prevention Method of Education: Verbal discussion and explanation provided to pt: verbalized understanding andor agreement of this information Treatment Provided: Gait Training 16 minutes: gait training with rolling walker stair training Alarm Status Patient positioned in: Chair (recliner, foot rest elevated, brakes locked, singh/IV/NG tube secure,brakes locked, pillow under B legs w/ B heels off foot rest) (12/02/231515) With: Pressure pad alarm intact and functioning and call carrera in reach (12/02/231515) Patient Education Review of Precautions: Safety;Fall (no amb or transfers w/o nursing assist) (12/02/231515) Safety Awareness: Patient verbalizes insight of current deficits;Patient demonstrates carryover of insight during functional tasks;Patient can communicate basic needs;Needs cueing supervision (needs cuing for proper positioning prior to sitting on chair and directions to prevent IV tubing and foleytubing from becoming tangled) (12/02/231515) Preferred learning method: Combination (12/02/231515) Barriers to learning: Medical Status;Hearing (12/02/231515) Method of Education: Verbalized to patient;Patient demonstrated task (12/02/231515) Assessment: Functional mobility improving as noted by decreased assistance and increased ambulatorydistance but, pt continues to present w/ deficits in strength, balance and functional mobility and requires assistance of 1 for transfers and amb w/ rolling walker and min A 1 to amb steps, AM PAC 18and is not safe to transfer or amb without assistance. At discharge would consider post acute care services which may include home health, half-way, outpatient therapy or in pt rehab. The level of care will be determined in collaboration with the patient, family/caregiver and care team members. Skilled PT at [facility] is warranted to address deficits in strength, endurance, balance and functional mobility and to continue to assess discharge needs. Deficits requiring P.T. treatment needs: Safety;Mobility;Balance;Weakness (11/28/23 1048) Equipment needs: Rolling walker (12/02/231515) Plan: Continue with current treatment plan established on evaluation. AM PAC Score with Stairs: 18 * Ancillary Progress Note - Gareth Walker RN - 12/02/2023 1:31 PM EDT CARE MANAGEMENT - ADULT TRANSITION NOTE [address] [place] [address] Name: Josiah Gutiérrez Location: [facility] [id number]/D Date: 12/02/2023 Time: 1:31 PM Risk Stratification Risk Stratification Psycho Social / Medical Concerns Identified: Adjustment to illness/injury (11/28/23 1013) Accessed [facility] to connect patients to social care resources: No (11/28/23 1013) OBRA or OPTIONS needed for placement: No (11/28/23 1013) Readmission Risk Score: 21.35 (12/02/23 1201) AM-PAC Score With Stairs : 17 (12/02/23 0812) Caregiver Information Patient Contacts Name Relation Home Work Mobile Roma Gutiérrez Spouse [phone] Transition of Care Checklist Narrative: Discussed during IDT. No anticipated DC at this time. CM will continue to follow for DC needs. Anticipated Transportation at Discharge: Patient/Family Expectations: [facility] Transition Planning Additional Considerations: Care Management will continue to monitor and assist with discharge planning needs * Progress Notes - [employer] - Yumiko Zabala PA-C - 12/02/2023 9:19 AM EDT PROGRESS NOTE - Urology [address] [place] [id number] Name: Josiah Gutiérrez Location: [facility] [id number] Date: 12/02/2023 Time: 9:22 AM Procedure: Right-sided hand assisted laparoscopic nephroureterectomy Date of Procedure: 11/27/23 POD: 5 SUBJECTIVE: Patient seen at bedside this morning. Recurrent episodes of bilious emesis overnight. He is afebrile and VSS. He stated he is feeling somewhat better but has irritation from NG tube and catheter. He noted he has minimal abdominal pain and discomfort. He stated he has been ambulating through the halls. He denied flatus or BM yesterday or this AM. He denied nausea at this time. NGT over 24 hours- 1,700 mL; Urine over 24 hours- 1,000 OBJECTIVE: Most Recent Vital Signs: BP: 104 mmHg/86 mmHg (12/02/23717) Pulse: 77 (12/02/23717) Temp: 35.72 C (12/02/23717) Temp Summary: Temp Min: 35.6 C (96.1 F) Max: 36.5 C (97.7 F) SpO2: 97 % (12/02/23717) O2 flow rate: 1 L/MIN (11/27/231757) Supplemental O2 Delivery: Room Air, None (12/02/23717) Vital Signs Last 24 Hours: Systolic BP: Most Recent Systolic BP Av.3 mmHg Min: 104 mmHg Max: 146 mmHg Temperature: Most Recent Temperature Av.9 C Min: 35.61 C Max: 36.5 C Pulse: Pulse Av.8 Min: 67 Max: 78 Respirations: Resp Av.3 Min: 18 Max: 20 SpO2: SpO2 Av.3 % Min: 94 % Max: 98 % Intake/Output Summary (Last 24 hours) at 12/02/2023921 Last data filed at 12/02/2023 0800 Gross per 24 hour Intake 2124.13 ml Output 2700 ml Net -575.87 ml Urine Output Last 8 Hours: 350 mL after bolus PHYSICAL EXAMINATION: General: alert, awake, oriented to person and place and situation, no distress, overweight Heart: regular rate, regular rhythm Chest: clear to auscultation bilaterally Abdomen: soft, incision is clean and without evidence of infection, minimal tenderness, improving distention Back: right costo-vertebral angle tenderness : singh in, clear, concentrated urine Extremities: no edema CURRENT HOSPITAL MEDICATIONS: Note that completed medications (per the OCT) continue to display for 24 hours. Ordered medicationsto be given in the future also display. Current Facility-Administered Medications Medication Dose Route Frequency Provider ceFAZolin in dextrose (Ancef) ivpb 1 g 1 g IV Piggyback Q8H Roberto Edwards MD Pantoprazole (Protonix) inj 40 mg 40 mg IV Push Before breakfast Reagan Pablo MD Acetaminophen (Tylenol) tab 975 mg 975 mg Oral Q6H Roberto Edwards MD NSS infusion Intravenous Continuous Roberto Edwards MD Bisacodyl (Dulcolax) supp 10 mg 10 mg Rectal Q12H PRN Roberto Edwards MD Albuterol Sulfate (Proventil) (2.5 MG/3ML) 0.083% inhalation solution 2.5 mg 2.5 mg Nebulizer Q4H PRN Roberto Edwards MD buPROPion (Wellbutrin) tab 50 mg 50 mg Oral BID(AM/PM) Roberto Edwards MD check patch placement order Does Not Apply Q Shift Roberto Edwards MD diphenhydrAMINE (Benadryl) inj 25 mg 25 mg IV Push Q6H PRN Roberto Edwards MD Docusate Sodium (Colace) cap 100 mg 100 mg Oral BID(AM/PM) Roberto Edwards MD Finasteride (Proscar) tab 5 mg 5 mg Oral Daily(AM) Roberto Edwards MD fluticasone (Flonase) nasal inhaler 2 [place] 2 [place] Each Nostril Daily(AM) Roberto Edwards MD hEParin inj 5,000 Units 5,000 Units Subcutaneous Q12H Roberto Edwards MD hydrOXYzine HCl tab 25 mg 25 mg Oral Daily PRN Roberto Edwards MD hyoscyamine (Levsin) tab 0.125 mg 0.125 mg Oral Q4H PRN Roberto Edwards MD Lidocaine urethral/mucosal 2 % gel Topical Q4H PRN Roberto Edwards MD LORazepam (Ativan) tab 0.25 mg 0.25 mg Oral Q8H PRN Yumiko Zabala PA-C LORazepam (Ativan) tab 0.25 mg 0.25 mg Oral QHS Yumiko Zabala PA-C meclizine (Antivert) tab 25 mg 25 mg Oral TID PRN Roberto Edwards MD melatonin tab 3 mg 3 mg Oral HS PRN Roberto Edwards MD Menthol (Madison) cough drop 1 Lozenge 1 Lozenge Oral Q2H PRN Roberto Edwards MD Metaxalone (Skelaxin) tab 800 mg 800 mg Oral TID PRN Roberto Edwards MD metoclopramide (Reglan) tab 10 mg 10 mg Oral Q6H PRN Roberto Edwards MD Or metoclopramide (Reglan) inj 10 mg 10 mg IV Push Q6H PRN Roberto Edwards MD mirtazapine ODT (Remeron Soltab) tab 15 mg 15 mg Oral HS Roberto Edwards MD naloxone (Narcan) 0.4 MG/ML inj 0.08 mg 0.08 mg IV Push PRN Roberto Edwards MD ondansetron ODT (Zofran) tab 4 mg 4 mg On Tongue Q6H PRN Roberto Edwards MD Or ondansetron (Zofran) inj 4 mg 4 mg IV Push Q6H PRN Roberto Edwards MD oxybutynin (Ditropan) tab 5 mg 5 mg Oral Q8H PRN Roberto Edwards MD oxyCODONE (Oxy IR) tab 5 mg 5 mg Oral Q4H PRN Roberto Edwards MD phenol (chlorASEPTIC) spray 3 [place] 3 [place] Oral Q4H PRN Roberto Edwards MD Polyethylene Glycol 3350 (Miralax) oral powder 17 g 1 Packet Oral HS Roberto Edwards MD propranolol (Inderal) tab 15 mg 15 mg Oral BID (INP ADJ TIME) Roberto Edwards MD Scopolamine (Transderm Scop) patch 1 mg 1 Patch Transdermal Q3 Days Roberto Edwards MD Simethicone (Mylicon) chew tab 80 mg 80 mg Oral Q6H PRN Roberto Edwards MD tamsulosin (Flomax) cap 0.4 mg 0.4 mg Oral Daily(AM) Roberto Edwards MD traMADol (Ultram) tab 50 mg 50 mg Oral Q6H PRN Roberto Edwards MD LABS: CBC Lab Results Component Value Date/Time WBC 10.91 (H) 12/02/2023 05:10 AM WBC 9.45 05/09/2020 12:32 PM HGB 13.0 (L) 12/02/2023 05:10 AM HGB 17.1 09/24/2022 12:00 AM HGB 16.4 05/09/2020 12:32 PM HCT 38.7 (L) 12/02/2023 05:10 AM HCT 46.5 05/09/2020 12:32 PM PLT 226 12/02/2023 05:10 AM PLT 248 05/09/2020 12:32 PM BMP Lab Results Component Value Date/Time NA 137 12/02/2023 05:10 AM NA 143 07/28/2020 09:03 AM POTASSIUM 3.5 12/02/2023 05:10 AM POTASSIUM 4.0 09/24/2022 12:00 AM POTASSIUM 4.1 07/28/2020 09:03 AM CL 98 12/02/2023 05:10 AM CL 106 07/28/2020 09:03 AM CO2 26 12/02/2023 05:10 AM CO2 25 07/28/2020 09:03 AM BUN 29 (H) 12/02/2023 05:10 AM BUN 14 07/28/2020 09:03 AM CREAT 1.3 (H) 12/02/2023 05:10 AM CREAT 0.82 09/24/2022 12:00 AM CREAT 0.9 07/28/2020 09:03 AM Ca, Mg, Phos Lab Results Component Value Date/Time CA 8.3 (L) 12/02/2023 05:10 AM CA 9.4 07/28/2020 09:03 AM MG 2.4 08/07/2023 10:43 AM IMPRESSION: 82-year-old male postoperative day # 5 s/p right-sided hand assisted laparoscopic nephroureterectomy with ongoing ileus. PLAN: - Continue NGT, NPO, IVF, and IV ancef - Patient may require nutritional support in the next day or two if ileus does not improve; will place nutrition consult - Encouraged OOB, ambulation, and incentive spirometry - Medicine recommendations are appreciated - Will continue AM labs Patient discussed with Dr. Edwards. Yumiko Zabala PA-C * Care Plan - Hernandez Nick RN - 12/01/2023 4:49 PM EDT Clinical Goal(s): Patient will not have any emesis this shift. (12/01/23 0800) Possible barriers to meeting goal(s)/advancing plan of care: distention/Ileus Stability of the patient: Moderately stable - low risk of patient condition declining or worsening Summary regarding today's goal(s): Not Met: Patient had an emesis during NG tube placement Recommendations: continue to assess GI symptoms frequently, continue PRN medication for N/V * Ancillary Progress Note - Noreen Hermosillo RN - 12/01/2023 1:53 PM EDT No bed available at [facility] today. [place] [facility] offered bed tomorrow 12/02/23. Facility can accept after 1600. * Progress Notes - Post-Op Global - Roberto Edwards MD - 12/01/2023 9:15 AM EDT PROGRESS NOTE - Urology [facility]-[address] [address] Name: Josiah Gutiérrez Location: [facility] [id number] Date: 12/01/2023 Time: 9:16 AM SUBJECTIVE: 82 yo male, POD#4 s/p R HALNU. Patient notes he took full liquids yesterday morning in small volumes, decreasing appetite and decreasing fluid intake over the course of the day. Recurrentbilious emesis present overnight. Patient notes he was ambulatory yesterday but is resting this morning, no activity yet. Fluctuations in urine output associated with IV fluid are noted. Stable creatinine with mild prerenal azotemia is appreciated. Patient resting in bed at the time of interview. Patient also notes chronic back and lower extremity pain. OBJECTIVE: Most Recent Vital Signs: BP: 153 mmHg/82 mmHg (12/01/23 0622) Pulse: 82 (12/01/23 0700) Temp: 35.72 C (12/01/23 0419) Temp Summary: Temp Min: 35.7 C (96.3 F) Max: 36.1 C (97 F) SpO2: 93 % (12/01/23 0700) O2 flow rate: 1 L/MIN (11/27/23 3105) Supplemental O2 Delivery: Room Air, None (12/01/23 0800) Vital Signs Last 24 Hours: Systolic BP: Most Recent Systolic BP Av.7 mmHg Min: 110 mmHg Max: 153 mmHg Temperature: Most Recent Temperature Av C Min: 35.72 C Max: 36.11 C Pulse: Pulse Av.7 Min: 71 Max: 85 Respirations: Resp Av.3 Min: 20 Max: 24 SpO2: SpO2 Av % Min: 93 % Max: 95 % Intake/Output Summary (Last 24 hours) at 12/01/2023 0916 Last data filed at 12/01/2023 0846 Gross per 24 hour Intake 1308.3 ml Output 610 ml Net 698.3 ml Urine Output Last 8 Hours: 350 mL after bolus PHYSICAL EXAMINATION: General: alert, awake, oriented to person and place and situation, no distress, overweight Heart: regular rate, regular rhythm Chest: clear to auscultation bilaterally Abdomen: soft, incision is clean and without evidence of infection, minimal tenderness, stable distention, no worsening Back: right costo-vertebral angle tenderness : singh in, clear, concentrated urine Extremities: no edema CURRENT HOSPITAL MEDICATIONS: Note that completed medications (per the MAR) continue to display for 24 hours. Ordered medicationsto be given in the future also display. Current Facility-Administered Medications Medication Dose Route Frequency Provider Acetaminophen (Tylenol) tab 975 mg 975 mg Oral Q6H Roberto Edwards MD NSS infusion Intravenous Continuous Roberto Edwards MD Bisacodyl (Dulcolax) supp 10 mg 10 mg Rectal Q12H PRN Roberto Edwards MD Albuterol Sulfate (Proventil) (2.5 MG/3ML) 0.083% inhalation solution 2.5 mg 2.5 mg Nebulizer Q4H PRN Roberto Edwards MD buPROPion (Wellbutrin) tab 50 mg 50 mg Oral BID(AM/PM) Roberto Edwards MD check patch placement order Does Not Apply Q Shift Roberto Edwards MD diphenhydrAMINE (Benadryl) inj 25 mg 25 mg IV Push Q6H PRN Roberto Edwards MD Docusate Sodium (Colace) cap 100 mg 100 mg Oral BID(AM/PM) Roberto Edwards MD Famotidine (Pepcid) tab 20 mg 20 mg Oral Q12H Roberto Edwards MD Finasteride (Proscar) tab 5 mg 5 mg Oral Daily(AM) Roberto Edwards MD fluticasone (Flonase) nasal inhaler 2 [place] 2 [place] Each Nostril Daily(AM) Roberto Edwards MD hEParin inj 5,000 Units 5,000 Units Subcutaneous Q12H Roberto Edwards MD hydroCHLOROthiazide cap 12.5 mg 12.5 mg Oral Daily(AM) Roberto Edwards MD hydrOXYzine HCl tab 25 mg 25 mg Oral Daily PRN Roberto Edwards MD hyoscyamine (Levsin) tab 0.125 mg 0.125 mg Oral Q4H PRN Roberto Edwards MD Lidocaine urethral/mucosal 2 % gel Topical Q4H PRN Roberto Edwards MD Lisinopril (Prinivil) tab 20 mg 20 mg Oral Daily(AM) Roberto Edwards MD LORazepam (Ativan) tab 0.25 mg 0.25 mg Oral Q8H PRN Yumiko Zabala PA-C LORazepam (Ativan) tab 0.25 mg 0.25 mg Oral QHS Yumiko Zabala PA-C meclizine (Antivert) tab 25 mg 25 mg Oral TID PRN Roberto Edwards MD melatonin tab 3 mg 3 mg Oral HS PRN Roberto Edwards MD Menthol (Madison) cough drop 1 Lozenge 1 Lozenge Oral Q2H PRN Roberto Edwards MD Metaxalone (Skelaxin) tab 800 mg 800 mg Oral TID PRN Roberto Edwards MD metoclopramide (Reglan) tab 10 mg 10 mg Oral Q6H PRN Roberto Edwards MD Or metoclopramide (Reglan) inj 10 mg 10 mg IV Push Q6H PRN Roberto Edwards MD mirtazapine ODT (Remeron Soltab) tab 15 mg 15 mg Oral HS Roberto Edwards MD naloxone (Narcan) 0.4 MG/ML inj 0.08 mg 0.08 mg IV Push PRN Roberto Edwards MD ondansetron ODT (Zofran) tab 4 mg 4 mg On Tongue Q6H PRN Roberto Edwards MD Or ondansetron (Zofran) inj 4 mg 4 mg IV Push Q6H PRN Roberto Edwards MD oxybutynin (Ditropan) tab 5 mg 5 mg Oral Q8H PRN Roberto Edwards MD oxyCODONE (Oxy IR) tab 5 mg 5 mg Oral Q4H PRN Roberto Edwards MD phenol (chlorASEPTIC) spray 3 [place] 3 [place] Oral Q4H PRN Roberto Edwards MD Polyethylene Glycol 3350 (Miralax) oral powder 17 g 1 Packet Oral HS Roberto Edwards MD propranolol (Inderal) tab 15 mg 15 mg Oral BID (INP ADJ TIME) Roberto Edwards MD Scopolamine (Transderm Scop) patch 1 mg 1 Patch Transdermal Q3 Days Roberto Edwards MD Simethicone (Mylicon) chew tab 80 mg 80 mg Oral Q6H PRN Roberto Edwards MD tamsulosin (Flomax) cap 0.4 mg 0.4 mg Oral Daily(AM) Roberto Edwards MD traMADol (Ultram) tab 50 mg 50 mg Oral Q6H PRN Roberto Edwards MD LABS: Labs reviewed as indicated below: Creatinine Results: Lab Results Component Value Date/Time CREATININE - [facility] 1.5 (H) 12/01/2023 06:03 AM CREATININE - [facility] 1.4 (H) 11/30/2023 04:35 AM CREATININE - [facility] 1.3 (H) 11/29/2023 05:16 AM CREATININE - [facility] 0.9 07/28/2020 09:03 AM CREATININE - [facility] 0.8 05/09/2020 12:32 PM CREATININE - [facility] 0.8 01/17/2017 01:18 PM CREATININE, RANDOM URINE - [facility] 148 11/06/2023 08:58 AM CREATININE, RANDOM URINE - [facility] 153 03/22/2023 08:21 AM CREATININE, RANDOM URINE - [facility] 143 02/14/2021 04:48 PM CREATININE-OUTSIDE LAB 0.82 09/24/2022 12:00 AM CREATININE-OUTSIDE LAB 0.8 05/28/2022 12:00 AM CREATININE-OUTSIDE LAB 0.8 05/25/2021 12:00 AM CBC Results: Results for orders placed or performed during the hospital encounter of 11/27/23 CBC Result Value Ref Range WBC 14.30 (H) 4.00 - 10.80 K/uL RBC 4.31 4.50 - 5.25 M/uL HGB 13.9 (L) 14.0 - 16.8 g/dL HCT 40.8 40.0 - 48.4 % MCV 94.7 82.0 - 99.5 fL MCH 32.3 27.0 - 34.0 pg MCHC 34.1 32.0 - 36.0 g/dL RDW 13.0 11.5 - 15.5 % PLT 241 140 - 400 K/uL MPV 9.1 6.6 - 11.1 fL nRBCs 0 <=0 /100 WBCs IMPRESSION: 82-year-old male postoperative day # 4 s/p right-sided hand assisted laparoscopic nephroureterectomy with ongoing ileus. PLAN: Patient appears to be suffering from an extended postoperative ileus. Continue activity, hold on aggressive advancement of diet for the time being. Will obtain a CT scan of the abdomen and pelvis to rule out other postoperative intra- abdominal processes causing difficulties with GI function. Continue IV fluids, will enlist the assistance of the hospitalist service. No significant current narcoticuse per nursing staff. Consider replacement of NG tube depending on CT findings. Will consider initiation of PPN/TPN depending on progress. Continue to monitor daily labs. Continue IV prophylactic Ancef. Care reviewed with nursing staff. * Care Plan - Tala Pike RN - 12/01/2023 6:32 AM EDT Clinical Goal(s): Pt will ambulate this evening (11/30/232051) Possible barriers to meeting goal(s)/advancing plan of care: Diagnosis Stability of the patient: Moderately stable - low risk of patient condition declining or worsening Summary regarding today's goal(s): Met: Pt ambulated in room this shift Recommendations: Monitor singh outpt, PRN antiemetics for N/V * Care Plan - Amaris Campbell RN - 11/30/2023 3:26 PM EDT Clinical Goal(s): Pt will ambulate in the vo 3x today (11/30/23 0900) Possible barriers to meeting goal(s)/advancing plan of care: Recent nephrectomy Stability of the patient: Moderately stable - low risk of patient condition declining or worsening Summary regarding today's goal(s): Met: Pt has ambulated 2x in the vo this shift Recommendations: Monitor/control pain and encourage mobility. * Ancillary Progress Note - Kendrick Stephenson PTA - 11/30/2023 11:10 AM EDT PROGRESS NOTE - Physical Therapy [facility]-[address] [address] Name: Josiah Gutiérrez Location: [facility] [id number]/D Date: 11/30/2023 Time: 1110 Josiah Gutiérrez is a/an 82 year old male. Patient Status: Inpatient Insurance: Payor: MEDICARE Plan: MEDICARE A AND B Product Type: *No Product type* Payor: [facility] ([id number]) Plan: [employer] 65 MEDICARE SUPPLEMENT Product Type: *No Product type* Patient Seen: at bedside, nursing cleared patient for therapy Patient Identified By: Name, ID Band and Date Diagnosis: Gait dysfunction, decreased mobility, s/p Right-sided hand assisted laparoscopic radicalnephroureterectomy, intravesical instillation of mitomycin-C (11/28/23 1048) Status of treatment: Treatment completed (11/30/231109) Orders: PT evaluation and treatment (11/28/23 1048) Weight Bearing Status: Weight bearing as tolerated (11/30/23 111) Precautions: Safety;Falls;Singh (11/30/231109) Total Treatment Time--free text: 12 mins (11/30/231109) Subjective: "I'm doing ok. I've been walking" Pain: No complaints of pain P.T. Bed Mobility Roll (Right): Supervision (11/29/231102) Roll (Left): Supervision (11/29/231102) Supine-Sit: Minimal Assistance (11/29/231102) Sit-Supine: Contact Guard (11/29/231102) Transfers Sit-Stand: Contact Guard (11/30/231109) Stand-Sit: Contact Guard (11/30/231109) W/C-Bed/Mat: Contact Guard (11/30/231109) Ambulation: Distance ambulated (feet): 350 Assistive Device: Rolling walker Assist: Contact Guard Balance Sit (Static): Good (11/29/231102) Sit (Dynamic): Good (11/29/231102) Stand (Static): Fair (11/29/231102) Stand (Dynamic): Fair (11/29/231102) Patient and or Family Goal(s): to get well and to return home Topic of Education: Safety with mobility, Use of assistive device, and Fall prevention Method of Education: Demonstrated the above task to pt: verbalized understanding and or agreement of this information and demonstrated the exercise and or task Treatment Provided: Gait Training 12 minutes: gait training with rolling walker Alarm Status Patient positioned in: Chair (11/30/231109) With: Call carrera in reach (11/30/231109) Patient Education Review of Precautions: Safety;Fall (11/30/231109) Safety Awareness: Patient verbalizes insight of current deficits;Patient demonstrates carryover of insight during functional tasks;Patient can communicate basic needs (11/30/231109) Preferred learning method: Combination (11/29/231102) Barriers to learning: Medical Status;Hearing (hard of hearing) (11/29/231102) Method of Education: Verbalized to patient;Patient demonstrated task (11/29/23 1103) Assessment: Pt tolerated tx fair with no reported pain or SOB post tx session. Pt did report feeling fatigued post tx session. Pt was able to transfer and ambulate with a RW and CGA. Pt displayed no LOB during GT bout but is slightly unsteady. Pt was left sitting up in the chair with feet on the floor. No needs post tx session. Pt instructed to not get up without assistance. Deficits requiring P.T. treatment needs: Safety;Mobility;Balance;Weakness (11/28/23 1048) Equipment needs: Rolling walker (11/29/23 1103) Plan: Continue with current treatment plan established on evaluation. AM PAC Score with Stairs: 17 * Progress Notes - Non-Billable - Roberto Edwards MD - 11/30/2023 10:16 AM EDT PROGRESS NOTE - Urology [facility] [address] Name: Josiah Gutiérrez Location: [facility] [id number]/D Date: 11/30/2023 Time: 10:16 AM SUBJECTIVE: 82 yo male, POD#3 s/p right-sided hand assisted laparoscopic nephroureterectomy. Overnight events are appreciated. Patient's NG tube was found dislodged in the nasal cavity this morning, removed by nursing. Increased output overnight is appreciated, felt to be due to intake of ice chips. Patient reports decreased distention, notes flatus and bowel movement yesterday. Pain is improved,controlled current meds. Patient notes ambulation yesterday. OBJECTIVE: Most Recent Vital Signs: BP: 139 mmHg/96 mmHg (11/30/23723) Pulse: 96 (11/30/23723) Temp: 36.06 C (11/30/23723) Temp Summary: Temp Min: 35.6 C (96 F) Max: 36.2 C (97.2 F) SpO2: 96 % (11/30/23723) O2 flow rate: 1 L/MIN (11/27/23 1758) Supplemental O2 Delivery: Room Air, None (11/30/23 0904) Vital Signs Last 24 Hours: Systolic BP: Most Recent Systolic BP Av.3 mmHg Min: 119 mmHg Max: 147 mmHg Temperature: Most Recent Temperature Av C Min: 35.56 C Max: 36.22 C Pulse: Pulse Av Min: 76 Max: 104 Respirations: Resp Av.6 Min: 16 Max: 20 SpO2: SpO2 Av.9 % Min: 91 % Max: 96 % Intake/Output Summary (Last 24 hours) at 11/30/2023 1016 Last data filed at 11/30/2023 0904 Gross per 24 hour Intake 1633.54 ml Output 2250 ml Net -616.46 ml Urine Output Last 8 Hours: 200 mL, NG tube with 800 overnight PHYSICAL EXAMINATION: General: alert, awake, oriented to person and place and situation, overweight Heart: regular rate, regular rhythm Chest: clear to auscultation bilaterally Abdomen: soft, appropriate incisional tenderness, incision is clean and without evidence of infection, decreased distention Back: right costo-vertebral angle tenderness : singh in, clear urine Extremities: no edema CURRENT HOSPITAL MEDICATIONS: Note that completed medications (per the MAR) continue to display for 24 hours. Ordered medicationsto be given in the future also display. Current Facility-Administered Medications Medication Dose Route Frequency Provider Acetaminophen (Tylenol) 160 MG/5ML oral liquid 975 mg 975 mg Oral Q6H Roberto Edwards MD NSS infusion Intravenous Continuous Roberto Edwards MD Bisacodyl (Dulcolax) supp 10 mg 10 mg Rectal Q12H PRN Roberto Edwards MD Albuterol Sulfate (Proventil) (2.5 MG/3ML) 0.083% inhalation solution 2.5 mg 2.5 mg Nebulizer Q4H PRN Roberto Edwards MD buPROPion (Wellbutrin) tab 50 mg 50 mg Oral BID(AM/PM) Roberto Edwards MD check patch placement order Does Not Apply Q Shift Roberto Edwards MD diphenhydrAMINE (Benadryl) inj 25 mg 25 mg IV Push Q6H PRN Roberto Edwards MD Docusate Sodium (Colace) cap 100 mg 100 mg Oral BID(AM/PM) Roberto Edwards MD Famotidine (Pepcid) tab 20 mg 20 mg Oral Q12H Roberto Edwards MD Finasteride (Proscar) tab 5 mg 5 mg Oral Daily(AM) Roberto Edwards MD fluticasone (Flonase) nasal inhaler 2 [place] 2 [place] Each Nostril Daily(AM) Roberto Edwards MD hEParin inj 5,000 Units 5,000 Units Subcutaneous Q12H Roberto Edwards MD hydroCHLOROthiazide cap 12.5 mg 12.5 mg Oral Daily(AM) Roberto Edwards MD hydrOXYzine HCl tab 25 mg 25 mg Oral Daily PRN Roberto Edwards MD hyoscyamine (Levsin) tab 0.125 mg 0.125 mg Oral Q4H PRN Roberto Edwards MD Lidocaine urethral/mucosal 2 % gel Topical Q4H PRN Roberto Edwards MD Lisinopril (Prinivil) tab 20 mg 20 mg Oral Daily(AM) Roberto Edwards MD LORazepam (Ativan) tab 0.25 mg 0.25 mg Oral Q8H PRN Yumiko Zabala PA-C LORazepam (Ativan) tab 0.25 mg 0.25 mg Oral QHS Yumiko Zabala PA-C meclizine (Antivert) tab 25 mg 25 mg Oral TID PRN Roberto Edwards MD melatonin tab 3 mg 3 mg Oral HS PRN Roberto Edwards MD Menthol ([place]) cough drop 1 Lozenge 1 Lozenge Oral Q2H PRN Roberto Edwards MD Metaxalone (Skelaxin) tab 800 mg 800 mg Oral TID PRN Roberto Edwards MD metoclopramide (Reglan) tab 10 mg 10 mg Oral Q6H PRN Roberto Edwards MD Or metoclopramide (Reglan) inj 10 mg 10 mg IV Push Q6H PRN Roberto Edwards MD mirtazapine ODT (Remeron Soltab) tab 15 mg 15 mg Oral HS Roberto Edwards MD naloxone (Narcan) 0.4 MG/ML inj 0.08 mg 0.08 mg IV Push PRN Roberto Edwards MD ondansetron ODT (Zofran) tab 4 mg 4 mg On Tongue Q6H PRN Roberto Edwards MD Or ondansetron (Zofran) inj 4 mg 4 mg IV Push Q6H PRN Roberto Edwards MD oxybutynin (Ditropan) tab 5 mg 5 mg Oral Q8H PRN Roberto Edwards MD oxyCODONE (Oxy IR) tab 5 mg 5 mg Oral Q4H PRN Roberto Edwards MD phenol (chlorASEPTIC) spray 3 [place] 3 [place] Oral Q4H PRN Roberto Edwards MD Polyethylene Glycol 3350 (Miralax) oral powder 17 g 1 Packet Oral HS Roberto Edwards MD propranolol (Inderal) tab 15 mg 15 mg Oral BID (INP ADJ TIME) Roberto Edwards MD Scopolamine (Transderm Scop) patch 1 mg 1 Patch Transdermal Q3 Days Roberto Edwards MD Simethicone (Mylicon) chew tab 80 mg 80 mg Oral Q6H PRN Roberto Edwards MD tamsulosin (Flomax) cap 0.4 mg 0.4 mg Oral Daily(AM) Roberto Edwards MD traMADol (Ultram) tab 50 mg 50 mg Oral Q6H PRN Roberto Edwards MD LABS: Labs reviewed as indicated below: CBC Results: Results for orders placed or performed during the hospital encounter of 11/27/23 CBC Result Value Ref Range WBC 15.87 (H) 4.00 - 10.80 K/uL RBC 4.77 4.50 - 5.25 M/uL HGB 15.3 14.0 - 16.8 g/dL HCT 45.0 40.0 - 48.4 % MCV 94.3 82.0 - 99.5 fL MCH 32.1 27.0 - 34.0 pg MCHC 34.0 32.0 - 36.0 g/dL RDW 12.9 11.5 - 15.5 % PLT 256 140 - 400 K/uL MPV 9.2 6.6 - 11.1 fL nRBCs 0 <=0 /100 WBCs Creatinine Results: Lab Results Component Value Date/Time CREATININE - [facility] 1.4 (H) 11/30/2023 04:35 AM CREATININE - [facility] 1.3 (H) 11/29/2023 05:16 AM CREATININE - [facility] 1.4 (H) 11/28/2023 04:33 AM CREATININE - [facility] 0.9 07/28/2020 09:03 AM CREATININE - [facility] 0.8 05/09/2020 12:32 PM CREATININE - [facility] 0.8 01/17/2017 01:18 PM CREATININE, RANDOM URINE - [facility] 148 11/06/2023 08:58 AM CREATININE, [facility]ANDOM URINE - [facility] 153 03/22/2023 08:21 AM CREATININE, RANDOM URINE - [facility] 143 02/14/2021 04:48 PM CREATININE-OUTSIDE LAB 0.82 09/24/2022 12:00 AM CREATININE-OUTSIDE LAB 0.8 05/28/2022 12:00 AM CREATININE-OUTSIDE LAB 0.8 05/25/2021 12:00 AM IMPRESSION: Postoperative day # 3 s/p right-sided hand assisted laparoscopic nephroureterectomy. PLAN: Postop ileus seems to be improving. Will slowly advance diet over the course of the day starting with clears. Importance of continued activity is emphasized with patient. Patient is pending placementin rehab due to baseline ambulatory difficulties in association with his postoperative healing. Bedplacement is available for tomorrow, as long as diet as tolerated patient should be stable for discharge at that time. Outpatient appointments in place. Patient vocalizes understanding of the treatment plan. Will see in a.m. for evaluation and discharge if diet tolerated. * Care Plan - Federica Huertas RN - 11/30/2023 6:36 AM EDT Clinical Goal(s): Pt will have no emesis this shift (11/29/231935) Possible barriers to meeting goal(s)/advancing plan of care: ileus, NG tube Stability of the patient: Moderately stable - low risk of patient condition declining or worsening Summary regarding today's goal(s): Met: Pt had no emesis overnight. Recommendations: Continue with NG tube to LIS as ordered * Progress Notes - Non-Billable - Roberto Edwards MD - 11/29/2023 4:52 PM EDT Patient is seen in late afternoon rounds. Feels improved after NG tube placement, greater than 500 mL of bilious fluid in canister. Patient notes he is passing gas and has had another bowel movement.He notes improved abdominal discomfort. NAD S1 S2 Good respiratory excursion. Decreased abdominal distention, incisions clean, dry, intact. A/P 82-year-old male POD#2 s/p R HALNU, postop ileus. Improved distention with NG tube in place. Will leave in place overnight, consider removal in the morning with repeat advancement of diet. Patient has placement for rehab on Saturday. Hopefully, discharge will be in place at this time if GI function improves. Patient vocalizes good understanding of the treatment plan. * Care Plan - Amaris Campbell RN - 11/29/2023 3:59 PM EDT Clinical Goal(s): Pt will not vomit this shift (11/29/23 0837) Possible barriers to meeting goal(s)/advancing plan of care: Recent surgery and post-op ileus Stability of the patient: Moderately stable - low risk of patient condition declining or worsening Summary regarding today's goal(s): Not Met: Pt did vomit this shift, NG tube inserted with + relief. Recommendations: Monitor I&O, give medications per order, encourage mobility--pt needs a lot ofencouragement, maintain NPO, continue NG per order. 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 * Ancillary Progress Note - Siomara Dean RN - 11/29/2023 1:40 PM EDT Spoke with Julia from [facility], [facility] is able to accept patient on Saturday if medically stable. * Progress Notes - Non-Billable - Roberto Edwards MD - 11/29/2023 12:55 PM EDT Patient is seen in afternoon rounds. Patient reports he has been ambulating with the assistance from physical therapy, passing flatus but also with recent emesis. He feels slight decrease in degree of abdominal distention to be present. KUB images reviewed suggesting ileus. A.m. lab work appreciated. RITO removed. Patient's pain seems to have improved, parenteral narcotics discontinued. Mild discomfort. S1 S2 Good respiratory excursion. Minimal improvement abdominal distention. Incisions clean, dry, intact. A/P 82-year-old male POD#2 status post right-sided hand assisted laparoscopic nephroureterectomy with postoperative ileus. Findings reviewed with the patient. Seen his difficulties will order NG tube for gastric decompression. Hopefully, alleviation of GI distention will help resolve his difficulties this can be removed and diet restarted within the next 24 hours. Patient vocalizes good understanding of the treatment plan. * Pt Handout (on AVS) - Yuly Robles RN - 11/29/2023 12:11 PM EDT Images from the original note were not included. [id number] Laparoscopic Nephroureterectomy Laparoscopic nephroureterectomy is surgery to remove a kidney and ureter. You may need this surgeryfor cancer in a kidney or ureter. Your two kidneys are organs that filter your blood. They remove waste chemicals and extra water to make urine. Ureters are tubes that carry urine from your kidneys to your bladder. For the surgery, the surgeon uses a tool called a laparoscope (scope). This is a thin, lighted tubewith a camera on the end. The scope lets the surgeon work through a few small cuts (incisions). In most cases, after surgery your body can still work well with only one healthy kidney and ureter. How to say it [id number]-[id number]-varsha Getting ready for surgery Follow any instructions from your healthcare provider. Tell your provider about any medicines you are taking. You may need to stop taking all or some of these before the test. These may include: All prescription medicines Blood-thinning medicines (anticoagulants) Hvwy-kph-lrvehmb medicines such as aspirin or ibuprofen Street drugs Herbs, vitamins, and other supplements In addition: Don't eat or drink during the 8 hours before your surgery. This includes coffee, water, gum, andmints. If your healthcare provider tells you to take medicines, take them with a small sip of water. Get your bowel ready for surgery 1 to 2 days before the surgery, if you have been told to. You may need to limit your diet to only clear liquids. You may also be asked to take laxatives or to giveyourself an enema. Follow your healthcare provider?s instructions. The day of surgery The surgery usually takes 3 to 5 hours. After surgery, you will usually stay in the hospital for 1 to 3 nights. Before the surgery begins An IV (intravenous) line is put into a vein in your arm or hand. This line supplies fluids and medicines such as antibiotics. You may be given medicine to prevent blood clots. To keep you free of pain during the surgery, you are given general anesthesia. This medicine puts you into a deep, sleeplike state through the surgery. A tube may be put into your throat to help you breathe. During the surgery The provider makes a few small incisions and one slightly larger incision in your belly (abdomen). The provider puts the scope through an incision. The scope sends live pictures of the inside of your abdomen to a video screen. The provider fills your abdomen with gas. This makes space for the provider to better see and dothe surgery. Using tools placed through the incisions, the provider prepares the kidney and ureter for removal. The provider detaches the small piece of tissue where the ureter connects to the bladder (bladdercuff). The provider removes the kidney, ureter, and bladder cuff through the larger incision. Nearby lymph nodes may be removed as well. When the surgery is complete, the provider removes all of the tools. They close the incisions with stitches or shaina. The provider puts a thin tube (Singh catheter) in your bladder. This will drain your urine whileyour bladder heals. The provider will often begin with laparoscopy. But the procedure may need to change to open surgery for safety reasons. Open surgery is done using a larger incision in your abdomen or side. You?ll be told more about this possibility before surgery. Recovering in the hospital After the surgery, you will be taken to the PACU (post anesthesia care unit). There, you?ll be closely monitored as you wake up from the anesthesia. You may feel sleepy. You may have an upset stomach(nausea). If a breathing tube was used, your throat may be sore at first. When you are awake and stable, you will be taken to your hospital room. While in the hospital: You will be given medicines to manage your pain, as needed. Let your provider know if your pain is not going away. You?ll first get IV fluids only. In a day or so, you?ll start on a liquid diet. You?ll then slowly return to a normal diet. You?ll be taught ways to cough and breathe that can keep your lungs clear and prevent pneumonia. The healthcare team may remove the Singh catheter while you?re in the hospital. If not, you?ll be taught how to care for it at home. Recovering at home After your hospital stay, you will be released to an adult family member or friend. Have someone stay with you for the next few days to help care for you. Recovery time varies for each person. Your provider will tell you when you can return to your normal routine. Until then, follow the instructions you have been given. Make sure to: Take all medicines as directed. Consider using a pill tray or electronic reminders so you don't miss any doses. Care for your incisions and catheter as instructed. Follow your provider?s guidelines for showering. Don't swim, bathe, use a hot tub, or do other activities that cover the incision with water until your provider says it?s OK. Don't lift anything heavy or do strenuous activities, as directed by your provider. Don't drive until your provider says it?s OK. Don't drive if you?re taking medicines that make you drowsy or sleepy. Walk at least a few times a day. Increase your pace and distance, as you feel able. Don't strain to pass stool. If needed, take stool softeners as directed by your provider. Drink plenty of water. This helps prevent urine odor and dehydration. Follow any special diet instructions from your provider. When to call your healthcare provider Call your healthcare provider right away if you have any of the following: Chest pain or trouble breathing ( call 911 ) Fever of 100.4 F ( 38C) or higher, or as directed by your healthcare provider Symptoms of infection at incision site?these include increased redness or swelling, warmth, morepain, or bad-smelling drainage Bloody urine or drainage from the catheter that is dark red or has clots (a small amount of blood is normal) No drainage from the catheter for more than 4 hours The catheter comes out of your bladder Pain that can't be controlled with medicines Pain or swelling in your legs New or worsening symptoms Follow-up You?ll have follow-up visits so your provider can check how well you?re healing. If your stitches, shaina, or catheter need to be removed, this will likely be done in 7 days. During follow-up visits, you may need tests to make sure the cancer has not returned. Keep all of your follow-up appointments. Consider bringing a close family member or friend to your appointments to be certain all of yourconcerns are addressed. Risks and possible complications All procedures have some risk. The risks of laparoscopic nephroureterectomy include: Bleeding (may require a blood transfusion) Infection Blood clots Hernia at the incision sites Damage to nearby nerves, blood vessels, soft tissues, or organs Cancer returning or tumor seeding (spillage of tumor cells that can grow into new tumors) Problems with the remaining kidney. This could lead to kidney failure. Heart attack or stroke Risks of anesthesia. The anesthesiologist will discuss these with you. Last Reviewed Date: 08/26/202219991047-9587 [employer]. All rights reserved. This information is not intended as a substitute for professional medical care. Always follow your healthcare professional's instructions. * Ancillary Progress Note - Amadou Jacques, PT - 11/29/2023 11:03 AM EDT PROGRESS NOTE - Physical Therapy [facility]-[address] [address] Name: Josiah Gutiérrez Location: [facility] [id number] Date: 11/29/2023 Time: 12:16 PM Josiah Gutiérrez is a/an 82 year old male. Patient Status: Inpatient Insurance: Payor: MEDICARE Plan: MEDICARE A AND B Product Type: *No Product type* Payor: [employer] [facility] [employer]) Plan: RACTIV MEDICARE SUPPLEMENT Product Type: *No Product type* Patient Seen: at bedside, nursing cleared patient for therapy Patient Identified By: Name, ID Band and Date Diagnosis: Gait dysfunction, decreased mobility, s/p Right-sided hand assisted laparoscopic radicalnephroureterectomy, intravesical instillation of mitomycin-C (11/28/231047) Status of treatment: Treatment completed (11/29/231102) Orders: PT evaluation and treatment (11/28/231047) Weight Bearing Status: Weight bearing as tolerated;RUE;LUE;RLE;LLE (11/29/231102) Precautions: Alarms;Falls;Singh;Safety (11/29/231102) Total Treatment Time--free text: 13 minutes (11/29/231102) Subjective: Pt expressed willingness to participate in PT session. Pain: Patient has complaints of pain. Pain located headach. 11/02 (chronic per pt report) Staff Notified P.T. Bed Mobility Roll (Right): Supervision (11/29/231102) Roll (Left): Supervision (11/29/231102) Supine-Sit: Minimal Assistance (11/29/231102) Sit-Supine: Contact Guard (11/29/231102) Transfers Sit-Stand: Minimal Assistance (min A 1 at bed, CGA 1 recliner) (11/29/231102) Stand-Sit: Contact Guard (11/29/231102) W/C-Bed/Mat: Minimal Assistance (11/29/231102) Ambulation: Distance ambulated (feet): 337 (322 feet and 15 feet) Assistive Device: Rolling walker Assist: Contact Guard 1 to supervision 1 (~50% each) Gait Characteristics: Decreased speed, Decreased step length, Unsteady, Increased trunk sway, no heel strike/foot flat R LE, steppage gait L LE, currently not safe to transfer or amb w/o assistance. Balance Sit (Static): Good (11/29/231102) Sit (Dynamic): Good (11/29/231102) Stand (Static): Fair (11/29/231102) Stand (Dynamic): Fair (11/29/231102) Patient and or Family Goal(s): to get well and to return home Topic of Education: Safety with mobility, Goals/plan of care, Use of assistive device, and Fall prevention Method of Education: Verbal discussion and explanation provided to pt: verbalized understanding andor agreement of this information Treatment Provided: Gait Training 13 minutes: gait training with rolling walker Alarm Status Patient positioned in: Bed (supine, HOB elevated to comfort, B upper rails up, brakes locked, foleyand IV secure, bed lowest height, pt declined scds when offered) (11/29/231102) With: Bed alarm intact and functioning and call carrera in reach (11/29/231102) Patient Education Review of Precautions: Safety;Fall (no amb or transfers w/o nursing assist) (11/29/231102) Safety Awareness: Patient verbalizes insight of current deficits;Patient demonstrates carryover of insight during functional tasks;Patient can communicate basic needs (11/29/231102) Preferred learning method: Combination (11/29/231102) Barriers to learning: Medical Status;Hearing (hard of hearing) (11/29/231102) Method of Education: Verbalized to patient;Patient demonstrated task (11/29/231102) Assessment: Functional mobility improving as noted by decrease in assistance w/ functional mobility. However, pt continues to present w/ deficits in balance and functional mobility w/ pt requiring assist of 1 for transfers and amb w/ rolling walker, AM PAC 18 and is currently not safe to transfer or amb without assistance. At discharge would consider post acute care services which may include home health, half-way, outpatient therapy or in pt rehab. The level of care will be determined in collaboration with the patient, family/caregiver and care team members. Skilled PT at [facility] is warranted to address deficits in strength, endurance, balance and functional mobility and to continue to assess discharge needs. Deficits requiring P.T. treatment needs: Safety;Mobility;Balance;Weakness (11/28/23 1048) Equipment needs: Rolling walker (11/29/23 1103) Plan: Continue with current treatment plan established on evaluation. AM PAC Score with Stairs: 18 * Progress Notes - Post-Op Global - Roberto Edwards MD - 11/29/2023 7:44 AM EDT PROGRESS NOTE - Urology [facility]-[address] [address] Name: Josiah Gutiérrez Location: [facility] [id number] Date: 11/29/2023 Time: 7:44 AM SUBJECTIVE: 82 yo male POD#2 s/p right-sided hand assisted laparoscopic nephroureterectomy. Interval events since seen yesterday are reviewed. Patient notes emesis last evening, overnight and this morning of bilious fluid. He notes decreasing appetite and worsening abdominal distention. Small bowelmovements x2 yesterday after provision of Dulcolax are noted, limited activity due to malaise. Patient notes stable pain control. OBJECTIVE: Most Recent Vital Signs: BP: 129 mmHg/88 mmHg (11/29/23358) Pulse: 97 (11/29/23358) Temp: 36 C (11/29/23358) Temp Summary: Temp Min: 35.9 C (96.6 F) Max: 36.7 C (98.1 F) SpO2: 95 % (11/29/23358) O2 flow rate: 1 L/MIN (11/27/231757) Supplemental O2 Delivery: Room Air, None (11/29/23358) Vital Signs Last 24 Hours: Systolic BP: Most Recent Systolic BP Av.3 mmHg Min: 103 mmHg Max: 129 mmHg Temperature: Most Recent Temperature Av.2 C Min: 35.89 C Max: 36.72 C Pulse: Pulse Av.8 Min: 75 Max: 97 Respirations: Resp Av.2 Min: 16 Max: 20 SpO2: SpO2 Av.4 % Min: 91 % Max: 95 % Intake/Output Summary (Last 24 hours) at 11/29/2023 0744 Last data filed at 11/29/2023 0541 Gross per 24 hour Intake 1607.22 ml Output 2515 ml Net -907.78 ml Urine Output Last 8 Hours: 600 mL via Singh, yellow urine, 30-75 mL via RITO drain per shift PHYSICAL EXAMINATION: General: alert, awake, oriented to person and place and situation, mild distress due to pain, overweight Heart: regular rate, regular rhythm Chest: clear to auscultation bilaterally Abdomen: soft, appropriate incisional tenderness, incision is clean and without evidence of infection, RITO is draining serosanguineous fluid, modest increase in abdominal distention Back: right costo-vertebral angle tenderness : singh in, clear urine Extremities: no edema CURRENT HOSPITAL MEDICATIONS: Note that completed medications (per the MAR) continue to display for 24 hours. Ordered medicationsto be given in the future also display. Current Facility-Administered Medications Medication Dose Route Frequency Provider NSS infusion Intravenous Continuous Roberto Edwards MD Bisacodyl (Dulcolax) supp 10 mg 10 mg Rectal Q12H PRN Roberto Edwards MD Acetaminophen (Tylenol) tab 975 mg 975 mg Oral Q6H Roberto Edwards MD Albuterol Sulfate (Proventil) (2.5 MG/3ML) 0.083% inhalation solution 2.5 mg 2.5 mg Nebulizer Q4H PRN Roberto Edwards MD buPROPion (Wellbutrin) tab 50 mg 50 mg Oral BID(AM/PM) Roberto Edwards MD ceFAZolin in dextrose (Ancef) ivpb 2 g 2 g IV Piggyback Q8H Roberto Edwards MD check patch placement order Does Not Apply Q Shift Roberto Edwards MD diphenhydrAMINE (Benadryl) inj 25 mg 25 mg IV Push Q6H PRN Roberto Edwards MD Docusate Sodium (Colace) cap 100 mg 100 mg Oral BID(AM/PM) Roberto Edwards MD Famotidine (Pepcid) tab 20 mg 20 mg Oral Q12H Roberto Edwards MD Finasteride (Proscar) tab 5 mg 5 mg Oral Daily(AM) Roberto Edwards MD fluticasone (Flonase) nasal inhaler 2 [place] 2 [place] Each Nostril Daily(AM) Roberto Edwards MD hEParin inj 5,000 Units 5,000 Units Subcutaneous Q12H Roberto Edwards MD hydroCHLOROthiazide cap 12.5 mg 12.5 mg Oral Daily(AM) Roberto Edwards MD HYDROmorphone (Dilaudid) inj 0.2 mg 0.2 mg IV Push Q4H PRN Roberto Edwards MD HYDROmorphone (Dilaudid) inj 0.5 mg 0.5 mg IV Push Q2H PRN Roberto Edwards MD hydrOXYzine HCl tab 25 mg 25 mg Oral Daily PRN Roberto Edwards MD hyoscyamine (Levsin) tab 0.125 mg 0.125 mg Oral Q4H PRN Roberto Edwards MD Lidocaine urethral/mucosal 2 % gel Topical Q4H PRN Roberto Edwards MD Lisinopril (Prinivil) tab 20 mg 20 mg Oral Daily(AM) Roberto Edwards MD LORazepam (Ativan) tab 0.25 mg 0.25 mg Oral Q8H PRN Yumiko Zabala PA-C LORazepam (Ativan) tab 0.25 mg 0.25 mg Oral QHS Yumiko Zabala PA-C meclizine (Antivert) tab 25 mg 25 mg Oral TID PRN Roberto Edwards MD melatonin tab 3 mg 3 mg Oral HS PRN Roberto Edwards MD Menthol (Madison) cough drop 1 Lozenge 1 Lozenge Oral Q2H PRN Roberto Edwards MD Metaxalone (Skelaxin) tab 800 mg 800 mg Oral TID PRN Roberto Edwards MD metoclopramide (Reglan) tab 10 mg 10 mg Oral Q6H PRN Roberto Edwards MD Or metoclopramide (Reglan) inj 10 mg 10 mg IV Push Q6H PRN Roberto Edwards MD mirtazapine ODT (Remeron Soltab) tab 15 mg 15 mg Oral HS Roberto Edwards MD naloxone (Narcan) 0.4 MG/ML inj 0.08 mg 0.08 mg IV Push PRN Roberto Edwards MD ondansetron ODT (Zofran) tab 4 mg 4 mg On Tongue Q6H PRN Roberto Edwards MD Or ondansetron (Zofran) inj 4 mg 4 mg IV Push Q6H PRN Roberto Edwards MD oxybutynin (Ditropan) tab 5 mg 5 mg Oral Q8H PRN Roberto Edwards MD oxyCODONE (Oxy IR) tab 5 mg 5 mg Oral Q4H PRN Roberto Edwards MD phenol (chlorASEPTIC) spray 3 [place] 3 [place] Oral Q4H PRN Roberto Edwards MD Polyethylene Glycol 3350 (Miralax) oral powder 17 g 1 Packet Oral HS Roberto Edwards MD propranolol (Inderal) tab 15 mg 15 mg Oral BID (INP ADJ TIME) Roberto Edwards MD Scopolamine (Transderm Scop) patch 1 mg 1 Patch Transdermal Q3 Days Roberto Edwards MD Simethicone (Mylicon) chew tab 80 mg 80 mg Oral Q6H PRN Roberto Edwards MD tamsulosin (Flomax) cap 0.4 mg 0.4 mg Oral Daily(AM) Roberto Edwards MD traMADol (Ultram) tab 50 mg 50 mg Oral Q6H PRN Roberto Edwards MD LABS: Labs reviewed as indicated below: CBC Results: Results for orders placed or performed during the hospital encounter of 11/27/23 CBC Result Value Ref Range WBC 14.83 (H) 4.00 - 10.80 K/uL RBC 4.50 4.50 - 5.25 M/uL HGB 14.5 14.0 - 16.8 g/dL HCT 42.5 40.0 - 48.4 % MCV 94.4 82.0 - 99.5 fL MCH 32.2 27.0 - 34.0 pg MCHC 34.1 32.0 - 36.0 g/dL RDW 12.8 11.5 - 15.5 % PLT 221 140 - 400 K/uL MPV 9.0 6.6 - 11.1 fL nRBCs 0 <=0 /100 WBCs Creatinine Results: Lab Results Component Value Date/Time CREATININE - [facility] 1.3 (H) 11/29/2023 05:16 AM CREATININE - [facility] 1.4 (H) 11/28/2023 04:33 AM CREATININE - [facility] 1.0 11/27/2023 01:13 PM CREATININE - [facility] 0.9 07/28/2020 09:03 AM CREATININE - [facility] 0.8 05/09/2020 12:32 PM CREATININE - [facility] 0.8 01/17/2017 01:18 PM CREATININE, RANDOM URINE - [facility] 148 11/06/2023 08:58 AM CREATININE, RANDOM URINE - [facility] 153 03/22/2023 08:21 AM CREATININE, RANDOM URINE - [facility] 143 02/14/2021 04:48 PM CREATININE-OUTSIDE LAB 0.82 09/24/2022 12:00 AM CREATININE-OUTSIDE LAB 0.8 05/28/2022 12:00 AM CREATININE-OUTSIDE LAB 0.8 05/25/2021 12:00 AM IMPRESSION: Postoperative day # 2 s/p R HALNU, now with likely ileus. PLAN: Patient with likely postop ileus, not rare consequence of surgery. Will return patient to sips of clears, check KUB for evaluation of bowel distention this morning. Importance of increased activity is emphasized, consider repeat Dulcolax. Will restart IV fluids. Hold IV narcotic medications. Depending on KUB findings can consider drainage of stomach with NG tube. Will await improvement prior to re-advancing diet. * Care Plan - Joanna Tucker RN - 11/29/2023 5:05 AM EDT Clinical Goal(s): Patient will ambulate 25 ft or more this shift (11/28/231932) Possible barriers to meeting goal(s)/advancing plan of care: acuity of illness Stability of the patient: Moderately stable - low risk of patient condition declining or worsening Summary regarding today's goal(s): Met: Pt ambulated 25ft this shift Recommendations: encourage ambulation and OOB activity * Care Plan - Jerri Cancino RN - 11/28/2023 5:14 PM EDT Clinical Goal(s): Patient will ambulate 25 ft x2 this shift. (11/28/23904) Possible barriers to meeting goal(s)/advancing plan of care: admitting diagnosis, pain, weakness, singh Stability of the patient: Moderately stable - low risk of patient condition declining or worsening Summary regarding today's goal(s): Met: Patient ambulated 25ft x2 this shift. Recommendations: Continue to encourage patient to ambulate in room and hallways. Stay within arms reach of patient at all times. Assist patient with singh as needed. Keep call carrera within reach. * Ancillary Progress Note - Gareth Walker RN - 11/28/2023 1:01 PM EDT Received message from floor staff that patient would like to go to [facility] on [place]. Referral made and no beds available at this time for today but facility checking to see if they have a bed available for tomorrow. 1500- Spoke with patient and and would like to go to [facility] on DC due to his steps and homeand worrying about him having to get up and down to go to the bathroom. Patient has been accepted with [facility] home health and patient and wishing to wait and see if [facility] will have a bed tomorrow. able to provide transportation on DC. * Ancillary Progress Note - Gareth Walker RN - 11/28/2023 10:14 AM EDT CARE MANAGEMENT - ADULT INITIAL SCREENING [facility] [address] Name: Josiah Gutiérrez Location: [facility] 6B-6017/D Date: 11/28/2023 Time: 10:15 AM Discussed patient with the interdisciplinary care team. This Juvenile Detention Officer performed a chart review and met with patient at bedside to complete admission screen and assessed needs for transition planning. The personal care attendant role and services were explained and emotional support was provided. Chief Complaint: No chief complaint on file. Prior Living Arrangements What was your living situation prior to admission/observation?: With Spouse (11/28/23 101) Living Quarters: House (11/28/231012) Number of steps to enter living quarters:: 3 (11/28/231012) Do you have serious difficulty walking or climbing stairs? (5 years old or older): No (11/27/23 2195) History of falling: No (11/28/23 0905) Prior Level of Functioning Describe the patient's ability prior to admission/observation to perform ADLs: Performs independently (11/28/23 101) Describe the patient's mobility status prior to admission: Patient ambulates independently (11/28/231012) Patient uses assistive device: No (11/28/231012) Caregiver Information Patient Contacts Name Relation Home Work Mobile Roma Gutiérrez Spouse [phone] Patient to [facility] 11/26 for scheduled right nephrectomy. Prior to admission patient lived at home with spouse in a 2 story home and has bedroom and bathroom on both floors. Patient was independent with ADL's, IADL's and able to drive self to appointments. Patient agreeable to home health on DC and has no preference on agency. Referral made to [facility] home health and phone call to [facility] to make aware. Per nursing patient will go home with snigh catheter and patient states he has had catheters at home andis comfortable with them. to provide transportation on DC home. Risk Stratification/Psychosocial/Care Gaps Risk Stratification Psycho Social / Medical Concerns Identified: Adjustment to illness/injury (11/28/231012) [facility] resources: No (11/28/231012) OBRA or OPTIONS needed for placement: No (04/04/24 1013) Readmission Risk Score: 23.56 (11/28/23 0800) AM-PAC Score With Stairs : 14 (11/28/23 0905) Prior to Admission Services Services Prior to Admission SCANNING CLERK Services (Services received within the last 30 days with exception, Psych within last two years): Durable Medical Equipment (11/28/23 1013) SCANNING CLERK Durable Medical Equipment (DME) in home: Walker Rolling (11/28/23 1013) [place] Dept[employer] of Aging (PDA) Waiver Program: N/A (11/28/23 1013) SCANNING CLERK Transportation (Services received within the last 30 days): Patient drives self (11/28/23 101) Outpatient Juvenile Detention Officer: No care valve steamer to display Patient/Family Expectations: home with spouse and home health For further screening information, please refer to the Care Management flow document. * Progress Notes - Post-Op Global - Roberto Edwards MD - 11/28/2023 7:56 AM EDT PROGRESS NOTE - Urology [facility] [address] Name: Josiah Gutiérrez Location: [facility] 6B-6017/D Date: 11/28/2023 Time: 7:56 AM SUBJECTIVE: 82-year-old male postoperative day #1 status post right-sided hand assisted laparoscopic nephroureterectomy. Patient remains quite anxious although his nausea has improved. He is taking clears at bedside. He seems to have some anxiety about increasing activity. Patient reports his pain is improved with oral pain medication, parenteral provided last night, but pain meds cause some nausea. Patient activity has included bedrest. Patient diet is clears. Bowel activity is no flatus. OBJECTIVE: Most Recent Vital Signs: BP: 118 mmHg/63 mmHg (11/28/23647) Pulse: 81 (11/28/23 0742) Temp: 35.61 C (11/28/23647) Temp Summary: Temp Min: 35.1 C (95.2 F) Max: 36.6 C (97.9 F) SpO2: 92 % (11/28/23741) O2 flow rate: 1 L/MIN (11/27/23 175) Supplemental O2 Delivery: Room Air, None (11/28/23741) Vital Signs Last 24 Hours: Systolic BP: Most Recent Systolic BP Av.9 mmHg Min: 97 mmHg Max: 158 mmHg Temperature: Most Recent Temperature Av.1 C Min: 35.11 C Max: 36.61 C Pulse: Pulse Av.8 Min: 68 Max: 92 Respirations: Resp Av.8 Min: 14 Max: 22 SpO2: SpO2 Av.8 % Min: 90 % Max: 97 % Intake/Output Summary (Last 24 hours) at 11/28/2023 0758 Last data filed at 11/28/2023 0545 Gross per 24 hour Intake 2496.39 ml Output 1845 ml Net 651.39 ml Urine Output Last 8 Hours: 400 mL, RITO drain 60-110 per shift PHYSICAL EXAMINATION: General: alert, awake, oriented to person and place and situation, mild distress due to pain, overweight Heart: regular rate, regular rhythm Chest: clear to auscultation bilaterally Abdomen: soft, incision is clean and without evidence of infection, RITO is draining serosanguineous fluid, mildly distended, some voluntary guarding with no rebound Back: right costo-vertebral angle tenderness : singh in, clear urine Extremities: no edema CURRENT HOSPITAL MEDICATIONS: Note that completed medications (per the OCT) continue to display for 24 hours. Ordered medicationsto be given in the future also display. Current Facility-Administered Medications Medication Dose Route Frequency Provider Bisacodyl (Dulcolax) supp 10 mg 10 mg Rectal Q12H PRN Roberto Edwards MD Acetaminophen (Tylenol) tab 975 mg 975 mg Oral Q6H Roberto Edwards MD Albuterol Sulfate (Proventil) (2.5 MG/3ML) 0.083% inhalation solution 2.5 mg 2.5 mg Nebulizer Q4H PRN Roberto Edwadrs MD buPROPion (Wellbutrin) tab 50 mg 50 mg Oral BID(AM/PM) Roberto Edwards MD ceFAZolin in dextrose (Ancef) ivpb 2 g 2 g IV Piggyback Q8H Roberto Edwards MD check patch placement order Does Not Apply Q Shift Roberto Edwards MD diphenhydrAMINE (Benadryl) inj 25 mg 25 mg IV Push Q6H PRN Roberto Edwards MD Docusate Sodium (Colace) cap 100 mg 100 mg Oral BID(AM/PM) Roberto Edwards MD Famotidine (Pepcid) tab 20 mg 20 mg Oral Q12H Roberto Edwards MD Finasteride (Proscar) tab 5 mg 5 mg Oral Daily(AM) Roberto Edwards MD fluticasone (Flonase) nasal inhaler 2 [place] 2 [place] Each Nostril Daily(AM) Roberto Edwards MD hEParin inj 5,000 Units 5,000 Units Subcutaneous Q12H Roberto Edwards MD hydroCHLOROthiazide cap 12.5 mg 12.5 mg Oral Daily(AM) Roberto Edwards MD HYDROmorphone (Dilaudid) inj 0.2 mg 0.2 mg IV Push Q4H PRN Roberto Edwards MD HYDROmorphone (Dilaudid) inj 0.5 mg 0.5 mg IV Push Q2H PRN Roberto Edwards MD hydrOXYzine HCl tab 25 mg 25 mg Oral Daily PRN Roberto Edwards MD hyoscyamine (Levsin) tab 0.125 mg 0.125 mg Oral Q4H PRN Roberto Edwards MD isolyte-S pH 7.4 infusion Intravenous Continuous Roberto Edwards MD isolyte-S pH 7.4 infusion Intravenous Continuous Roberto Edwards MD Lidocaine urethral/mucosal 2 % gel Topical Q4H PRN Roberto Edwards MD Lisinopril (Prinivil) tab 20 mg 20 mg Oral Daily(AM) Roberto Edwards MD LORazepam (Ativan) tab 0.25 mg 0.25 mg Oral Q8H PRN Yumiko Zabala PA-C LORazepam (Ativan) tab 0.25 mg 0.25 mg Oral QHS Yumiko Zabala PA-C meclizine (Antivert) tab 25 mg 25 mg Oral TID PRN Roberto Edwards MD melatonin tab 3 mg 3 mg Oral HS PRN Roberto Edwards MD Menthol (Madison) cough drop 1 Lozenge 1 Lozenge Oral Q2H PRN Roberto Edwards MD Metaxalone (Skelaxin) tab 800 mg 800 mg Oral TID PRN Roberto Edwards MD metoclopramide (Reglan) tab 10 mg 10 mg Oral Q6H PRN Roberto Edwards MD Or metoclopramide (Reglan) inj 10 mg 10 mg IV Push Q6H PRN Roberto Edwards MD mirtazapine ODT (Remeron Soltab) tab 15 mg 15 mg Oral HS Roberto Edwards MD naloxone (Narcan) 0.4 MG/ML inj 0.08 mg 0.08 mg IV Push PRN Roberto Edwards MD ondansetron ODT (Zofran) tab 4 mg 4 mg On Tongue Q6H PRN Roberto Edwards MD Or ondansetron (Zofran) inj 4 mg 4 mg IV Push Q6H PRN Roberto Edwards MD oxybutynin (Ditropan) tab 5 mg 5 mg Oral Q8H PRN Roberto Edwards MD oxyCODONE (Oxy IR) tab 5 mg 5 mg Oral Q4H PRN Roberto Edwards MD phenol (chlorASEPTIC) spray 3 [place] 3 [place] Oral Q4H PRN Roberto Edwards MD Polyethylene Glycol 3350 (Miralax) oral powder 17 g 1 Packet Oral HS Roberto Edwards MD propranolol (Inderal) tab 15 mg 15 mg Oral BID (INP ADJ TIME) Roberto Edwards MD Scopolamine (Transderm Scop) patch 1 mg 1 Patch Transdermal Q3 Days Roberto Edwards MD Simethicone (Mylicon) chew tab 80 mg 80 mg Oral Q6H PRN Roberto Edwards MD tamsulosin (Flomax) cap 0.4 mg 0.4 mg Oral Daily(AM) Roberto Edwards MD traMADol (Ultram) tab 50 mg 50 mg Oral Q6H PRN Roberto Edwards MD LABS: Labs reviewed as indicated below: Creatinine Results: Lab Results Component Value Date/Time CREATININE - [facility] 1.4 (H) 11/28/2023 04:33 AM CREATININE - [facility] 1.0 11/27/2023 01:13 PM CREATININE - [facility] 0.9 11/06/2023 08:56 AM CREATININE - [facility] 0.9 07/28/2020 09:03 AM CREATININE - [facility] 0.8 05/09/2020 12:32 PM CREATININE - [facility] 0.8 01/17/2017 01:18 PM CREATININE, RANDOM URINE - [facility] 148 11/06/2023 08:58 AM CREATININE, RANDOM URINE - [facility] 153 03/22/2023 08:21 AM CREATININE, RANDOM URINE - [facility] 143 02/14/2021 04:48 PM CREATININE-OUTSIDE LAB 0.82 09/24/2022 12:00 AM CREATININE-OUTSIDE LAB 0.8 05/28/2022 12:00 AM CREATININE-OUTSIDE LAB 0.8 05/25/2021 12:00 AM CBC Results: Results for orders placed or performed during the hospital encounter of 11/27/23 CBC Result Value Ref Range WBC 12.54 (H) 4.00 - 10.80 K/uL RBC 4.45 4.50 - 5.25 M/uL HGB 14.3 14.0 - 16.8 g/dL HCT 42.4 40.0 - 48.4 % MCV 95.3 82.0 - 99.5 fL MCH 32.1 27.0 - 34.0 pg MCHC 33.7 32.0 - 36.0 g/dL RDW 12.9 11.5 - 15.5 % PLT 249 140 - 400 K/uL MPV 9.4 6.6 - 11.1 fL nRBCs 0 <=0 /100 WBCs IMPRESSION: Postoperative day # 1 s/p nephrectomy. Patient with the following comorbidities: hypertension, obesity, and anxiety/depression, lumbar stenosis, history of kidney stones PLAN: Patient's nausea seems significantly more controlled today. Will advance diet and activity. Patientnotes significant baseline difficulties with balance and ambulation due to his difficulties with a lumbar stenosis and osteoarthritis. Will enlist the help of physical therapy and consider rehab placement if it is felt this will be beneficial. Anticipate diminishing pain medication requirement and improved diet tolerance over the course of the day. Dulcolax suppository p.r.n. constipation and bloating. Continue Singh catheter with outpatient trial of void secondary to intraoperative vesicotomy.Intraoperative findings reviewed with the patient. Above content is personally reviewed. Patient vocalizes good understanding of the treatment plan. Advance diet. Ambulate at least TID today. SCDs while in bed. Discharge planning. * Care Plan - Heather Cloud RN - 11/28/2023 5:09 AM EDT Clinical Goal(s): Pt will have a decrease in nausea and vomiting (11/27/231932) Possible barriers to meeting goal(s)/advancing plan of care: post op Stability of the patient: Moderately stable - low risk of patient condition declining or worsening Summary regarding today's goal(s): Met: Pt had no additional c/o or s/s of N/V post reglan and zofran Recommendations: continue with current POC * Care Plan - Jerri Cancino RN - 11/27/2023 6:35 PM EDT Clinical Goal(s): Patient will get OOb to chair this shift. (11/27/23 1444) Possible barriers to meeting goal(s)/advancing plan of care: admitting diagnosis, s/p surgery, pain, drowsiness Stability of the patient: Moderately stable - low risk of patient condition declining or worsening Summary regarding today's goal(s): Met: Patient got OOB to chair this shift. Recommendations: Continue to encourage patient to get OOB to chair and to use IS. Assess for pain and medicate per MAR prior to mobility as needed. Keep call carrera within reach. * Communication - Yumiko Zabala PA-C - 11/27/2023 4:37 PM EDT Patient is seen in PM rounds at bedside. He stated he is feeling nauseous and mild right flank pain. He stated his pain and nausea is improving. He noted he had a few episodes of emesis, but is now tolerating water. He noted he has nausea associated with anxiety. He was seen on O2 at 2 L. he has some mild right-sided abdominal tenderness on exam. RITO drain has serosanguineous drainage, and Singh has dark yellow urine. Encouraged patient to ambulate and advance diet as tolerated. Informed patienthas antianxiety medication is onboard. Would recommend starting patient at a clear diet based on current symptoms. We will follow up in the a.m.. Yumiko Zabala PA-C documented in this encounter Plan of Treatment Upcoming Encounters Date Type Department Care Team (Late st Contact Info) Description 12/06/2023 10:00 AM EDT Nurse Only Urology Woody Serrano [address] [place] [address] [place] [address] Nurse Woody Urology EDYTA Dior [address] [place] [address] [place] [address] 12/09/2023 3:15 PM EDT Office Visit Urology, [facility] [address] [place] [address] Roberto Edwards MD [address] [place] [address] [place] [address] 12/12/2023 1:00 PM EDT Telemedicine Psychiatry, [place] [address] [place] [address] Princess Kwon MD [address] [place] [address] 01/22/2024 8:00 AM EDT Hospital Encounter ENDO [facility], Endoscopy Room [facility] [address] [place] [id number] Delfina Butcher, DO [address] [place] [address] 01/22/2024 8:00 AM EDT - 01/22/2024 9:00 AM EDT Surgery ENDO [facility], Endoscopy Room [facility] [address] [place] [phone] Delfina Butcher, DO [address] [place] [address] COLONOSCOPY FLEXIBLE PROXIMAL DIAGNOSTIC 05/08/2024 1:30 PM EDT [facility] [address] [place] [address] Praneeth Elizalde MD [address] [place] [address] [place] [address] 05/08/2024 2:20 PM EDT Office Visit [facility] [address] [place] [address] Rema Carpenter CRNP [address] [place] [address] 11/23/2024 9:00 AM EDT Office Visit [facility] [address] [place] [address] Beny Campbell, [address] [place] [address] Pending Results Name Type Priority Associated Diagnoses Date /Time SURGICAL PATHOLOGY Pathology Routine Urothelial carcinoma of kidney, right (HCC) 11/27/2023 11:26 AM EDT Scheduled Orders Name Type Priority Associated Diagnoses Orde r Schedule SURGICAL PATHOLOGY Pathology Routine Urothelial carcinoma of kidney, right (HCC) Release Upon Ordering for 1 Occurrences starting 11/27/2023, 1 completed Scheduled Procedures Name Priority Associated Diagnoses Date/Ti [...] this encounter Medical Devices Implanted Type Area Business Development Analyst Device Identifier Shelf Expiration Date Model / Serial / Lot Lens Intraoc 19.5 - [id number] - [id number] Implanted:Qty: 1 on 12/07/2021 by Eulogio Barrios MD at [facility] Left: Eye [employer] 07/25/2026 [id number] / [id number] / [id number] Lens Intraoc 19.5 - [id number] - [id number] Implanted:Qty: 1 on 12/19/2021 by Eulogio Barrios MD at OR [facility] Right: Eye [employer] 07/25/2026 [id number] / [id number] / [id number] documented as of this encounter Procedures Procedure Name Priority Date/Time Associated Diagnosis Comments DIFFERENTIAL, AUTOMATED Routine 12/04/2023 4:46 AM EDT BASIC METABOLIC PANEL Routine 12/04/2023 4:46 AM EDT CBC Routine 12/04/2023 4:46 AM EDT CBC Routine 12/04/2023 4:46 AM EDT DIFFERENTIAL, AUTOMATED Routine 12/03/2023 4:37 AM EDT BASIC METABOLIC PANEL Routine 12/03/2023 4:37 AM EDT CBC Routine 12/03/2023 4:37 AM EDT CBC Routine 12/03/2023 4:37 AM EDT DIFFERENTIAL, AUTOMATED Routine 12/02/2023 5:10 AM EDT BASIC METABOLIC PANEL Routine 12/02/2023 5:10 AM EDT CBC Routine 12/02/2023 5:10 AM EDT CBC Routine 12/02/2023 5:10 AM EDT XR ABDOMEN 1 VIEW STAT 12/01/2023 3:[address] ABD/PELVIS WO IV/ORAL CONTRAST Routine 12/01/2023 11:30 AM EDT DIFFERENTIAL, AUTOMATED Routine 12/01/2023 6:03 AM EDT BASIC METABOLIC PANEL Routine 12/01/2023 6:03 AM EDT CBC Routine 12/01/2023 6:03 AM EDT CBC Routine 12/01/2023 6:03 AM EDT DIFFERENTIAL, AUTOMATED Routine 11/30/2023 4:35 AM EDT BASIC METABOLIC PANEL Routine 11/30/2023 4:35 AM EDT CBC Routine 11/30/2023 4:35 AM EDT CBC Routine 11/30/2023 4:35 AM EDT XR ABDOMEN 1 VIEW STAT 11/29/2023 1:0 0 PM EDT XR ABDOMEN 1 VIEW Routine 11/29/2023 8:0 9 AM EDT DIFFERENTIAL, AUTOMATED Routine 11/29/2023 5:16 AM EDT BASIC METABOLIC PANEL Routine 11/29/2023 5:16 AM EDT CBC Routine 11/29/2023 5:16 AM EDT CBC Routine 11/29/2023 5:16 AM EDT DIFFERENTIAL, AUTOMATED Routine 11/28/2023 4:33 AM EDT BASIC METABOLIC PANEL Routine 11/28/2023 4:33 AM EDT CBC Routine 11/28/2023 4:33 AM EDT CBC Routine 11/28/2023 4:33 AM EDT DIFFERENTIAL, AUTOMATED STAT 11/27/2023 1:13 PM EDT BASIC METABOLIC PANEL STAT 11/27/2023 1:13 PM EDT CBC STAT 11/27/2023 1:13 PM EDT CBC STAT 11/27/2023 1:13 PM EDT SARS-COV-2 (COVID-19), NAAT STAT 11/27/2023 12:48 PM EDT GLUCOSE METER, POINT OF CARE JILL 11/27/2023 10:39 AM EDT LAPARO REMOVE K/URETER 11/27/2023 7:30 AM EDT Urothelial carcinoma of kidney, right (HCC) GLUCOSE METER, POINT OF CARE JILL 11/27/2023 7:22 AM EDT documented in this encounter Results * (ABNORMAL) DIFFERENTIAL, AUTOMATED (12/04/2023 4:46 AM EDT) Pathologist [facility] WBC 9.75 4.00 - 10.80 K/uL 12/04/2023 5:06 AM EDT LABORATORY [facility] Neutrophils % 71.5 40.0 - 75.0 % 12/04/2023 5:06 AM EDT LABORATORY [facility] Lymphocytes % 12.8(L) 18.0 - 42.0 % 12/04/2023 5:06 AM EDT LABORATORY [facility] Monocytes % 11.8(H) 1.0 - 11.0 % 12/04/2023 5:06 AM EDT LABORATORY [facility] Eosinophils % 1.9 0.0 - 6.0 % 12/04/2023 5:06 AM EDT LABORATORY [facility] Basophils % 0.5 0.0 - 2.0 % 12/04/2023 5:06 AM EDT LABORATORY [facility] Immature Granulocytes % 1.5 0.0 - 2.0 % 12/04/2023 5:06 AM EDT LABORATORY [facility] Absolute Neutrophils 6.96 1.80 - 7.70 K/uL 12/04/2023 5:06 AM EDT LABORATORY GL Absolute Lymphocytes 1.25 1.00 - 4.80 K/ul 12/04/2023 5:06 AM EDT LABORATORY [facility] Absolute Monocytes 1.15(H) 0.00 - 1.10 K/uL 12/04/2023 5:06 AM EDT LABORATORY GL Absolute Eosinophils 0.19 0.00 - 0.70 K/uL 12/04/2023 5:06 AM EDT LABORATORY GL Absolute Basophils 0.05 0.00 - 0.20 K/uL 12/04/2023 5:06 AM EDT LABORATORY GL Absolute Immature Granulocytes 0.15 0.00 - 0.20 K/uL 12/04/2023 5:06 AM EDT LABORATORY [facility] Blood Venous blood specimen / Unknown Venipuncture / Unknown 12/04/2023 4:46 AM EDT 12/04/2023 4:59 AM EDT Roberto Edwards MD LAB BLOOD [facility]A BL[facility] LABORATORY [address] [address] * (ABNORMAL) CBC (12/04/2023 4:46 AM EDT) WBC 9.75 4.00 - 10.80 K/uL 12/04/2023 5:06 AM EDT LABORATORY [facility] RBC 4.06 4.50 - 5.25 M/uL 12/04/2023 5:06 AM EDT LABORATORY [facility] HGB 12.7(L) 14.0 - 16.8 g/dL 12/04/2023 5:06 AM EDT LABORATORY [facility] HCT 37.9(L) 40.0 - 48.4 % 12/04/2023 5:06 AM EDT LABORATORY [facility] MCV 93.3 82.0 - 99.5 fL 12/04/2023 5:06 AM EDT LABORATORY [facility] MCH 31.3 27.0 - 34.0 pg 12/04/2023 5:06 AM EDT LABORATORY [facility] MCHC 33.5 32.0 - 36.0 g/dL 12/04/2023 5:06 AM EDT LABORATORY [facility] RDW 12.5 11.5 - 15.5 % 12/04/2023 5:06 AM EDT LABORATORY [facility] PLT 228 140 - 400 K/uL 12/04/2023 5:06 AM EDT LABORATORY [facility] MPV 9.6 6.6 - 11.1 fL 12/04/2023 5:06 AM EDT LABORATORY [facility] nRBCs 0 <=0 /100 WBCs 12/04/2023 5:06 AM EDT LABORATORY [facility] Blood Venous blood specimen / Unknown Venipuncture / Unknown 12/04/2023 4:46 AM EDT 12/04/2023 4:59 AM EDT Roberto Edwards MD LAB BLOOD [facility] [address] [address] * (ABNORMAL) BASIC METABOLIC PANEL (12/04/2023 4:46 AM EDT) BUN 19 6 - 20 mg/dL 12/04/2023 5:24 AM EDT LABORATORY [facility] Creatinine 1.2 0.6 - 1.2 mg/dL 12/04/2023 5:24 AM EDT LABORATORY [facility] Estimated Glomerular Filtration Rate 60 >=60 mL/min 12/04/2023 5:24 AM EDT LABORATORY [facility] Comment:eGFR is calculated b ased on the CKD-EPI 2020 equation Sodium 137 135 - 146 mmol/L 12/04/2023 5:24 AM EDT LABORATORY GL Potassium 3.6 3.5 - 5.1 mmol/L 12/04/2023 5:24 AM EDT LABORATORY GL Chloride 102 98 - 107 mmol/L 12/04/2023 5:24 AM EDT LABORATORY GL CO2 25 22 - 32 mmol/L 12/04/2023 5:24 AM EDT LABORATORY GL Anion Gap 10 7 - 15 mmol/L 12/04/2023 5:24 AM EDT LABORATORY GL Glucose 111 70 - 120 mg/dL 12/04/2023 5:24 AM EDT LABORATORY [facility] Calcium 8.0(L) 8.4 - 10.2 mg/dL 12/04/2023 5:24 AM EDT LABORATORY [facility] Blood Venous blood specimen / Unknown Venipuncture / Unknown 12/04/2023 4:46 AM EDT 12/04/2023 4:59 AM EDT Roberto Edwards MD LAB BLOOD ORDERA BLES LABORATORY [facility] [address] [place] [address] * (ABNORMAL) DIFFERENTIAL, AUTOMATED (12/03/2023 4:37 AM EDT) Pathologist [facility] WBC 8.60 4.00 - 10.80 K/uL 12/03/2023 5:35 AM EDT LABORATORY GL Neutrophils % 72.6 40.0 - 75.0 % 12/03/2023 5:35 AM EDT LABORATORY GL Lymphocytes % 11.5(L) 18.0 - 42.0 % 12/03/2023 5:35 AM EDT LABORATORY GL Monocytes % 13.4(H) 1.0 - 11.0 % 12/03/2023 5:35 AM EDT LABORATORY GL Eosinophils % 1.0 0.0 - 6.0 % 12/03/2023 5:35 AM EDT LABORATORY GL Basophils % 0.6 0.0 - 2.0 % 12/03/2023 5:35 AM EDT LABORATORY GL Immature Granulocytes % 0.9 0.0 - 2.0 % 12/03/2023 5:35 AM EDT LABORATORY GL Absolute Neutrophils 6.24 1.80 - 7.70 K/uL 12/03/2023 5:35 AM EDT LABORATORY GL Absolute Lymphocytes 0.99(L) 1.00 - 4.80 K/ul 12/03/2023 5:35 AM EDT LABORATORY GL Absolute Monocytes 1.15(H) 0.00 - 1.10 K/uL 12/03/2023 5:35 AM EDT LABORATORY GL Absolute Eosinophils 0.09 0.00 - 0.70 K/uL 12/03/2023 5:35 AM EDT LABORATORY [facility] Absolute Basophils 0.05 0.00 - 0.20 K/uL 12/03/2023 5:35 AM EDT LABORATORY GL Absolute Immature Granulocytes 0.08 0.00 - 0.20 K/uL 12/03/2023 5:35 AM EDT LABORATORY [facility] Blood Venous blood specimen / Unknown Venipuncture / Unknown 12/03/2023 4:37 AM EDT 12/03/2023 5:30 AM EDT Roberto Edwards MD LAB BLOOD ORDERA BLES LABORATORY [facility] [address] [place] [address] * (ABNORMAL) CBC (12/03/2023 4:37 AM EDT) WBC 8.60 4.00 - 10.80 K/uL 12/03/2023 5:35 AM EDT LABORATORY [facility] RBC 4.05 4.50 - 5.25 M/uL 12/03/2023 5:35 AM EDT LABORATORY [facility] HGB 13.0(L) 14.0 - 16.8 g/dL 12/03/2023 5:35 AM EDT LABORATORY [facility] HCT 38.0(L) 40.0 - 48.4 % 12/03/2023 5:35 AM EDT LABORATORY [facility] MCV 93.8 82.0 - 99.5 fL 12/03/2023 5:35 AM EDT LABORATORY [facility] MCH 32.1 27.0 - 34.0 pg 12/03/2023 5:35 AM EDT LABORATORY [facility] MCHC 34.2 32.0 - 36.0 g/dL 12/03/2023 5:35 AM EDT LABORATORY [facility] RDW 12.6 11.5 - 15.5 % 12/03/2023 5:35 AM EDT LABORATORY [facility] PLT 229 140 - 400 K/uL 12/03/2023 5:35 AM EDT LABORATORY [facility] MPV 9.5 6.6 - 11.1 fL 12/03/2023 5:35 AM EDT LABORATORY [facility] nRBCs 0 <=0 /100 WBCs 12/03/2023 5:35 AM EDT LABORATORY [facility] Blood Venous blood specimen / Unknown Venipuncture / Unknown 12/03/2023 4:37 AM EDT 12/03/2023 5:30 AM EDT Roberto Edwards MD LAB BLOOD ORDERA BLES Performing Organization Address City/[facility]/ZIP Co de Phone Number LABORATORY [address] [phone] * (ABNORMAL) BASIC METABOLIC PANEL (12/03/2023 4:37 AM EDT) BUN 24(H) 6 - 20 mg/dL 12/03/2023 5:56 AM EDT [facility] Creatinine 1.2 0.6 - 1.2 mg/dL 12/03/2023 5:56 AM EDT [facility] Estimated Glomerular Filtration Rate 60 >=60 mL/min 12/03/2023 5:56 AM EDT [facility] Comment:eGFR is calculated b ased on the CKD-EPI 2020 equation Sodium 138 135 - 146 mmol/L 12/03/2023 5:56 AM EDT LAB[facility] Potassium 3.4(L) 3.5 - 5.1 mmol/L 12/03/2023 5:56 AM EDT [facility] Chloride 101 98 - 107 mmol/L 12/03/2023 5:56 AM EDT [facility] CO2 26 22 - 32 mmol/L 12/03/2023 5:56 AM EDT [facility] Anion Gap 11 7 - 15 mmol/L 12/03/2023 5:56 AM EDT [facility] Glucose 105 70 - 120 mg/dL 12/03/2023 5:56 AM EDT [facility] Calcium 8.2(L) 8.4 - 10.2 mg/dL 12/03/2023 5:56 AM EDT [facility] Blood Venous blood specimen / Unknown Venipuncture / Unknown 12/03/2023 4:37 AM EDT 12/03/2023 5:30 AM EDT Roberto Edwards MD LAB BLOOD ORDERA BLES LABORAT[facility] [address], [place] [id number] * (ABNORMAL) DIFFERENTIAL, AUTOMATED (12/02/2023 5:10 AM EDT) WBC 10.91(H) 4.00 - 10.80 K/uL 12/02/2023 6:02 AM EDT LABORATORY [facility] Neutrophils % 77.8(H) 40.0 - 75.0 % 12/02/2023 6:02 AM EDT LABORATORY GL Lymphocytes % 8.6(L) 18.0 - 42.0 % 12/02/2023 6:02 AM EDT LABORATORY GL Monocytes % 10.9 1.0 - 11.0 % 12/02/2023 6:02 AM EDT LABORATORY GL Eosinophils % 1.5 0.0 - 6.0 % 12/02/2023 6:02 AM EDT LABORATORY [facility] Basophils % 0.4 0.0 - 2.0 % 12/02/2023 6:02 AM EDT LABORATORY [facility] Immature Granulocytes % 0.8 0.0 - 2.0 % 12/02/2023 6:02 AM EDT LABORATORY [facility] Absolute Neutrophils 8.49(H) 1.80 - 7.70 K/uL 12/02/2023 6:02 AM EDT LABORATORY [facility] Absolute Lymphocytes 0.94(L) 1.00 - 4.80 K/ul 12/02/2023 6:02 AM EDT LABORATORY [facility] Absolute Monocytes 1.19(H) 0.00 - 1.10 K/uL 12/02/2023 6:02 AM EDT LABORATORY [facility] Absolute Eosinophils 0.16 0.00 - 0.70 K/uL 12/02/2023 6:02 AM EDT LABORATORY GL Absolute Basophils 0.04 0.00 - 0.20 K/uL 12/02/2023 6:02 AM EDT LABORATORY GL Absolute Immature Granulocytes 0.09 0.00 - 0.20 K/uL 12/02/2023 6:02 AM EDT LABORATORY [facility] Blood Venous blood specimen / Unknown Venipuncture / Unknown 12/02/2023 5:10 AM EDT 12/02/2023 5:55 AM EDT Roberto Edwards MD LAB BLOOD [facility] [address] [address] * (ABNORMAL) CBC (12/02/2023 5:10 AM EDT) WBC 10.91(H) 4.00 - 10.80 K/uL 12/02/2023 6:02 AM EDT LABORATORY [facility] RBC 4.17 4.50 - 5.25 M/uL 12/02/2023 6:02 AM EDT LABORATORY [facility] HGB 13.0(L) 14.0 - 16.8 g/dL 12/02/2023 6:02 AM EDT LABORATORY GL HCT 38.7(L) 40.0 - 48.4 % 12/02/2023 6:02 AM EDT LABORATORY [facility] MCV 92.8 82.0 - 99.5 fL 12/02/2023 6:02 AM EDT LABORATORY [facility] MCH 31.2 27.0 - 34.0 pg 12/02/2023 6:02 AM EDT LABORATORY [facility] MCHC 33.6 32.0 - 36.0 g/dL 12/02/2023 6:02 AM EDT LABORATORY [facility] RDW 12.8 11.5 - 15.5 % 12/02/2023 6:02 AM EDT LABORATORY [facility] PLT 226 140 - 400 K/uL 12/02/2023 6:02 AM EDT LABORATORY [facility] MPV 9.6 6.6 - 11.1 fL 12/02/2023 6:02 AM EDT LABORATORY GL nRBCs 0 <=0 /100 WBCs 12/02/2023 6:02 AM EDT LABORATORY [facility] Blood Venous blood specimen / Unknown Venipuncture / Unknown 12/02/2023 5:10 AM EDT 12/02/2023 5:55 AM EDT Roberto Edwards MD LAB BLOOD [facility] [address] [address] * (ABNORMAL) BASIC METABOLIC PANEL (12/02/2023 5:10 AM EDT) BUN 29(H) 6 - 20 mg/dL 12/02/2023 6:25 AM EDT LAB[facility]ORY [facility] Creatinine 1.3(H) 0.6 - 1.2 mg/dL 12/02/2023 6:25 AM EDT LAB[facility] Estimated Glomerular Filtration Rate 56(L) >=60 mL/min 12/02/2023 6:25 AM EDT LAB[facility] Comment:eGFR is calculated b ased on the CKD-EPI 2020 equation Sodium 137 135 - 146 mmol/L 12/02/2023 6:25 AM EDT LAB[facility] Potassium 3.5 3.5 - 5.1 mmol/L 12/02/2023 6:25 AM EDT [facility] Chloride 98 98 - 107 mmol/L 12/02/2023 6:25 AM EDT [facility] CO2 26 22 - 32 mmol/L 12/02/2023 6:25 AM EDT [facility] Anion Gap 13 7 - 15 mmol/L 12/02/2023 6:25 AM EDT [facility] Glucose 99 70 - 120 mg/dL 12/02/2023 6:25 AM EDT [facility] Calcium 8.3(L) 8.4 - 10.2 mg/dL 12/02/2023 6:25 AM EDT [facility] Blood Venous blood specimen / Unknown Venipuncture / Unknown 12/02/2023 5:10 AM EDT 12/02/2023 5:55 AM EDT Roberto Edwards MD LAB BLOOD ORDERA BLES [facility] [address] [facility] TAMIKA Mckay [id number] * XR ABDOMEN 1 VIEW (12/01/2023 3:09 PM EDT) Anatomical Region Laterality Modality Abdomen, Pelvis Digital Radiogra phy 12/01/2023 3:00 PM EDT Impressions 12/01/2023 4:06 PM EDT IMPRESSION: Satisfactory gastric tube placement. THIS DOCUMENT HAS BEEN ELECTRONICALLY SIGNED BY TREVOR PANTOJA MD Narrative 12/01/2023 4:06 PM EDT PROCEDURE INFORMATION: Exam: XR Abdomen Exam date and time: 12/01/2023 3:00 PM Age: 82 years old Clinical indication: Device placement; Gi device; Nasogastric tube; Additional info: Gastric tube placement verification TECHNIQUE: Imaging protocol: Radiologic exam of the abdomen. Views: Frontal supine view of the abdomen. 1 View. COMPARISON: CT ABD/PELVIS WO IV/ORAL CONTRAST 02/27/2024 11:24 FINDINGS: Tubes, catheters and devices: Enteric tube satisfactory position in the stomach in the left upper quadrant. Gastrointestinal tract: Normal. No bowel dilation. Bones/joints: Unremarkable. Procedure Note Trevor Pantoja MD - 12/01/2023 PROCEDURE INFORMATION: Exam: XR Abdomen Exam date and time: 12/01/2023 3:00 PM Age: 82 years old Clinical indication: Device placement; Gi device; Nasogastric tube;Additional info: Gastric tube placement verification TECHNIQUE: Imaging protocol: Radiologic exam of the abdomen. Views: Frontal supine view of the abdomen. 1 View. COMPARISON: CT ABD/PELVIS WO IV/ORAL CONTRAST 02/27/2024 11:24 FINDINGS: Tubes, catheters and devices: Enteric tube satisfactory position in thestomach in the left upper quadrant. Gastrointestinal tract: Normal. No bowel dilation. Bones/joints: Unremarkable. IMPRESSION IMPRESSION: Satisfactory gastric tube placement. THIS DOCUMENT HAS BEEN ELECTRONICALLY SIGNED BY TREVOR PANTOJA MD Reagan Pablo MD RADIOLOGY ([facility]) * CT ABD/PELVIS WO IV/ORAL CONTRAST (12/01/2023 11:30 AM EDT) Anatomical Region Laterality Modality Body, Abdomen, Pelvis Computed T omography 12/01/2023 11:2 4 AM EDT Addenda Addendum by Gareth Elder MD on 12/01/2023 12:27 PM EDT THIS REPORT CONTAINS FINDINGS THAT MAY BE CRITICAL TO PATIENT CARE. The exam findings were verbally communicated by me to ROBERTO EDWARDS via telephone conference at 12:27 PM EDT on 12/01/2023. The findings were acknowledged and understood. THIS DOCUMENT HAS BEEN ELECTRONICALLY SIGNED BY GARETH ELDER MD Impressions 12/01/2023 12:20 PM EDT IMPRESSION: 1. Cannot exclude a developing abscess along the right pelvic wall 2. Postoperative air-fluid collection in the right renal fossa 3. Postoperative ileus COMMENTS: Consistent with the [employer]'s Incidental Findings Committee white paper (J Am Garrick Radiol 2017): For any incidental adrenal lesion greater than or equal to 1 cm but less than or equal to 4 cm classified in this report as benign, likely benign, or containing fat (including classification as an adenoma or myelolipoma), no follow-up imaging is recommended per consensus recommendations based on imaging criteria. Further lab evaluation could be pursued if warranted based on clinical findings. THIS DOCUMENT HAS BEEN ELECTRONICALLY SIGNED BY GARETH ELDER MD Narrative 12/01/2023 12:20 PM EDT PROCEDURE INFORMATION: Exam: CT Abdomen And Pelvis Without Contrast Exam date and time: 12/01/2023 11:24 AM Age: 82 years old Clinical indication: Abdominal pain; Additional info: Extended postop ileus TECHNIQUE: Imaging protocol: Computed tomography of the abdomen and pelvis without contrast. Radiation optimization: All CT scans at this facility use at least one of these dose optimization techniques: automated exposure control; mA and/or kV adjustment per patient size (includes targeted exams where dose is matched to clinical indication); or iterative reconstruction. COMPARISON: CT UROGRAM HEMATURIA(Adult) 08/06/2023 8:41 AM FINDINGS: Lungs: There is subsegmental atelectasis at the lung base Pleural spaces: There is a small pleural effusion Coronary arteries: Coronary artery calcification is seen Liver: No suspicious abnormality is seen within the liver. There is fatty change in the liver Gallbladder and bile ducts: There are no calcified gallstones Pancreas: No suspicious abnormality is seen within the pancreas. There is a pancreatic calcification Spleen: The spleen is not enlarged Adrenal glands: The right adrenal gland has a lobulated contour with multiple small nodules measuring to 16 mm. 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 There is a small air-fluid collection at the operative site posteriorly measuring about 5.8 cm transversely by 3 cm in AP dimension series 3, image 179. This is not unexpected. Continued surveillance till resolution advised. 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 There is a moderate amount of air within the colon. There are short air-fluid levels within the proximal colon. There are distended small bowel loops with air-fluid levels. The stomach is distended with fluid. These changes would be consistent with an ileus Appendix: No evidence of appendicitis. Intraperitoneal space: There is an air-fluid collection along the right pelvic wall measuring 5.2 cm in length by 2.3 cm in height by 3 cm in AP dimension. It is located posterior to the iliac vessels. The possibility of an developing abscess could not be excluded. Follow-up is advised. There is some fluid adjacent to the right colon laterally. No free intraperitoneal air is seen Vasculature: Atheromatous change is seen Lymph nodes: The lymph nodes are nonspecific Urinary bladder: There is a Singh catheter in the bladder Reproductive: Prostatic calcification is seen Bones/joints: There is degenerative change in the spine Soft tissues: There is gynecomastia. There is subcutaneous emphysema within the abdominal wall. There is history recent surgery. There is linear stranding within the subcutaneous fat on the right. There is some subcutaneous emphysema along the spermatic cord on right. There is a fat containing umbilical hernia Procedure Note Gareth Elder MD - 12/01/2023 PROCEDURE INFORMATION: Exam: CT Abdomen And Pelvis Without Contrast Exam date and time: 12/01/2023 11:24 AM Age: 82 years old Clinical indication: Abdominal pain; Additional info: Extended postopileus TECHNIQUE: Imaging protocol: Computed tomography of the abdomen and pelvis without contrast. Radiation optimization: All CT scans at this facility use at least one ofthese dose optimization techniques: automated exposure control; mA and/or kV adjustment per patient size (includes targeted exams where dose is matchedto clinical indication); or iterative reconstruction. COMPARISON: CT UROGRAM HEMATURIA(Adult) 08/06/2023 8:41 AM FINDINGS: Lungs: There is subsegmental atelectasis at the lung base Pleural spaces: There is a small pleural effusion Coronary arteries: Coronary artery calcification is seen Liver: No suspicious abnormality is seen within the liver. There is fatty change in the liver Gallbladder and bile ducts: There are no calcified gallstones Pancreas: No suspicious abnormality is seen within the pancreas. There juan f pancreatic calcification Spleen: The spleen is not enlarged Adrenal glands: The right adrenal gland has a lobulated contour withmultiple small nodules measuring to 16 mm. 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 There is a small air-fluid collection at the operative site posteriorly measuring about 5.8cm transversely by 3 cm in AP dimension series 3, image 179. This is not unexpected. Continued surveillance till resolution advised. 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 Thereis a moderate amount of air within the colon. There are short air-fluid levels within the proximal colon. There are distended small bowel loops withair-fluid levels. The stomach is distended with fluid. These changes would beconsistent with an ileus Appendix: No evidence of appendicitis. Intraperitoneal space: There is an air-fluid collection along the rightpelvic wall measuring 5.2 cm in length by 2.3 cm in height by 3 cm in APdimension. It is located posterior to the iliac vessels. The possibility of andeveloping abscess could not be excluded. Follow-up is advised. There is some fluid adjacent to the right colon laterally. No free intraperitoneal air is seen Vasculature: Atheromatous change is seen Lymph nodes: The lymph nodes are nonspecific Urinary bladder: There is a Singh catheter in the bladder Reproductive: Prostatic calcification is seen Bones/joints: There is degenerative change in the spine Soft tissues: There is gynecomastia. There is subcutaneous emphysemawithin the abdominal wall. There is history recent surgery. There is linear stranding within the subcutaneous fat on the right. There is some subcutaneousemphysema along the spermatic cord on right. There is a fat containing umbilicalhernia IMPRESSION IMPRESSION: 1. Cannot exclude a developing abscess along the right pelvic wall 2. Postoperative air-fluid collection in the right renal fossa 3. Postoperative ileus COMMENTS: Consistent with the [employer]'s Incidental Findings Committee white paper (J Am Garrick Radiol 2017): For any incidental adrenal lesion greater than or equal to 1 cm but less than or equal to 4 cmclassified in this report as benign, likely benign, or containing fat (including classification as an adenoma or myelolipoma), no follow-up imaging is recommended per consensus recommendations based on imaging criteria.Further lab evaluation could be pursued if warranted based on clinical findings. THIS DOCUMENT HAS BEEN ELECTRONICALLY SIGNED BY GARETH ELDER MD Roberto Edwards MD RAD CT * (ABNORMAL) DIFFERENTIAL, AUTOMATED (12/01/2023 6:03 AM EDT) WBC 14.30(H) 4.00 - 10.80 K/uL 12/01/2023 6:13 AM EDT LABORATORY GL Neutrophils % 79.3(H) 40.0 - 75.0 % 12/01/2023 6:13 AM EDT LABORATORY [facility] Lymphocytes % 9.3(L) 18.0 - 42.0 % 12/01/2023 6:13 AM EDT LABORATORY GL Monocytes % 9.4 1.0 - 11.0 % 12/01/2023 6:13 AM EDT LABORATORY GL Eosinophils % 0.9 0.0 - 6.0 % 12/01/2023 6:13 AM EDT LABORATORY GL Basophils % 0.3 0.0 - 2.0 % 12/01/2023 6:13 AM EDT LABORATORY GL Immature Granulocytes % 0.8 0.0 - 2.0 % 12/01/2023 6:13 AM EDT LABORATORY [facility] Absolute Neutrophils 11.34(H) 1.80 - 7.70 K/uL 12/01/2023 6:13 AM EDT LABORATORY [facility] Absolute Lymphocytes 1.33 1.00 - 4.80 K/ul 12/01/2023 6:13 AM EDT LABORATORY [facility] Absolute Monocytes 1.34(H) 0.00 - 1.10 K/uL 12/01/2023 6:13 AM EDT LABORATORY GL Absolute Eosinophils 0.13 0.00 - 0.70 K/uL 12/01/2023 6:13 AM EDT LABORATORY GL Absolute Basophils 0.04 0.00 - 0.20 K/uL 12/01/2023 6:13 AM EDT LABORATORY GL Absolute Immature Granulocytes 0.12 0.00 - 0.20 K/uL 12/01/2023 6:13 AM EDT LABORATORY [facility] Blood Venous blood specimen / Unknown Venipuncture / Unknown 12/01/2023 6:03 AM EDT 12/01/2023 6:10 AM EDT Roberto Edwards MD LAB BLOOD [facility]A [facility] [address], [place] [id number] * (ABNORMAL) CBC (12/01/2023 6:03 AM EDT) WBC 14.30(H) 4.00 - 10.80 K/uL 12/01/2023 6:13 AM EDT LABORATORY [facility] RBC 4.31 4.50 - 5.25 M/uL 12/01/2023 6:13 AM EDT LABORATORY [facility] HGB 13.9(L) 14.0 - 16.8 g/dL 12/01/2023 6:13 AM EDT LABORATORY [facility] HCT 40.8 40.0 - 48.4 % 12/01/2023 6:13 AM EDT LABORATORY [facility] MCV 94.7 82.0 - 99.5 fL 12/01/2023 6:13 AM EDT LABORATORY [facility] MCH 32.3 27.0 - 34.0 pg 12/01/2023 6:13 AM EDT LABORATORY [facility] MCHC 34.1 32.0 - 36.0 g/dL 12/01/2023 6:13 AM EDT LABORATORY [facility] RDW 13.0 11.5 - 15.5 % 12/01/2023 6:13 AM EDT LABORATORY [facility] PLT 241 140 - 400 K/uL 12/01/2023 6:13 AM EDT LABORATORY [facility] MPV 9.1 6.6 - 11.1 fL 12/01/2023 6:13 AM EDT LABORATORY [facility] nRBCs 0 <=0 /100 WBCs 12/01/2023 6:13 AM EDT LABORATORY [facility] Blood Venous blood specimen / Unknown Venipuncture / Unknown 12/01/2023 6:03 AM EDT 12/01/2023 6:10 AM EDT Roberto Edwards MD LAB BLOOD ORDERA BLES LABORATORY [facility] [address], [place] [id number] * (ABNORMAL) BASIC METABOLIC PANEL (12/01/2023 6:03 AM EDT) Pathologist [facility] BUN 37(H) 6 - 20 mg/dL 12/01/2023 6:40 AM EDT LABORATORY [facility] Creatinine 1.5(H) 0.6 - 1.2 mg/dL 12/01/2023 6:40 AM EDT LABORATORY [facility] Estimated Glomerular Filtration Rate 47(L) >=60 mL/min 12/01/2023 6:40 AM EDT LABORATORY [facility] Comment:eGFR is calculated b ased on the CKD-EPI 2020 equation Sodium 136 135 - 146 mmol/L 12/01/2023 6:40 AM EDT LABORATORY [facility] Potassium 3.9 3.5 - 5.1 mmol/L 12/01/2023 6:40 AM EDT LABORATORY [facility] Chloride 99 98 - 107 mmol/L 12/01/2023 6:40 AM EDT LAB[facility]AT[facility] CO2 25 22 - 32 mmol/L 12/01/2023 6:40 AM EDT LABORATORY [facility] Anion Gap 12 7 - 15 mmol/L 12/01/2023 6:40 AM EDT LABORATORY [facility] Glucose 126(H) 70 - 120 mg/dL 12/01/2023 6:40 AM EDT LABORATORY [facility] Calcium 8.7 8.4 - 10.2 mg/dL 12/01/2023 6:40 AM EDT LABORATORY GL Blood Venous blood specimen / Unknown Venipuncture / Unknown 12/01/2023 6:03 AM EDT 12/01/2023 6:10 AM EDT Roberto Edwards MD LAB BLOOD [facility]A [facility] [address] [address] * (ABNORMAL) DIFFERENTIAL, AUTOMATED (11/30/2023 4:35 AM EDT) WBC 15.87(H) 4.00 - 10.80 K/uL 11/30/2023 4:56 AM EDT LABORATORY GL Neutrophils % 84.8(H) 40.0 - 75.0 % 11/30/2023 4:56 AM EDT LABORATORY GL Lymphocytes % 5.6(L) 18.0 - 42.0 % 11/30/2023 4:56 AM EDT LABORATORY GL Monocytes % 8.6 1.0 - 11.0 % 11/30/2023 4:56 AM EDT LABORATORY [facility] Eosinophils % 0.1 0.0 - 6.0 % 11/30/2023 4:56 AM EDT LABORATORY GL Basophils % 0.3 0.0 - 2.0 % 11/30/2023 4:56 AM EDT LABORATORY GL Immature Granulocytes % 0.6 0.0 - 2.0 % 11/30/2023 4:56 AM EDT LABORATORY GL Absolute Neutrophils 13.45(H) 1.80 - 7.70 K/uL 11/30/2023 4:56 AM EDT LABORATORY GL Absolute Lymphocytes 0.89(L) 1.00 - 4.80 K/ul 11/30/2023 4:56 AM EDT LABORATORY [facility] Absolute Monocytes 1.37(H) 0.00 - 1.10 K/uL 11/30/2023 4:56 AM EDT LABORATORY [facility] Absolute Eosinophils 0.02 0.00 - 0.70 K/uL 11/30/2023 4:56 AM EDT LABORATORY [facility] Absolute Basophils 0.05 0.00 - 0.20 K/uL 11/30/2023 4:56 AM EDT LABORATORY GL Absolute Immature Granulocytes 0.09 0.00 - 0.20 K/uL 11/30/2023 4:56 AM EDT LABORATORY [facility] Blood Venous blood specimen / Unknown Venipuncture / Unknown 11/30/2023 4:35 AM EDT 11/30/2023 4:50 AM EDT Roberto Edwards MD LAB BLOOD ORDERA BLES LABORATORY [facility] [address] [place] [address] * (ABNORMAL) CBC (11/30/2023 4:35 AM EDT) [facility] WBC 15.87(H) 4.00 - 10.80 K/uL 11/30/2023 4:56 AM EDT LABORATORY GL RBC 4.77 4.50 - 5.25 M/uL 11/30/2023 4:56 AM EDT LABORATORY GL HGB 15.3 14.0 - 16.8 g/dL 11/30/2023 4:56 AM EDT LABORATORY GL HCT 45.0 40.0 - 48.4 % 11/30/2023 4:56 AM EDT LABORATORY [facility] MCV 94.3 82.0 - 99.5 fL 11/30/2023 4:56 AM EDT LABORATORY [facility] MCH 32.1 27.0 - 34.0 pg 11/30/2023 4:56 AM EDT LABORATORY [facility] MCHC 34.0 32.0 - 36.0 g/dL 11/30/2023 4:56 AM EDT LABORATORY [facility] RDW 12.9 11.5 - 15.5 % 11/30/2023 4:56 AM EDT LABORATORY [facility] PLT 256 140 - 400 K/uL 11/30/2023 4:56 AM EDT LABORATORY [facility] MPV 9.2 6.6 - 11.1 fL 11/30/2023 4:56 AM EDT LABORATORY [facility] nRBCs 0 <=0 /100 WBCs 11/30/2023 4:56 AM EDT LABORATORY [facility] Blood Venous blood specimen / Unknown Venipuncture / Unknown 11/30/2023 4:35 AM EDT 11/30/2023 4:50 AM EDT Roberto Edwards MD LAB BLOOD ORDERA BLES LABORATORY [facility] [address] [place] [address] * (ABNORMAL) BASIC METABOLIC PANEL (11/30/2023 4:35 AM EDT) BUN 24(H) 6 - 20 mg/dL 11/30/2023 5:20 AM EDT LABORATORY GL Creatinine 1.4(H) 0.6 - 1.2 mg/dL 11/30/2023 5:20 AM EDT LABORATORY GL Estimated Glomerular Filtration Rate 52(L) >=60 mL/min 11/30/2023 5:20 AM EDT LABORATORY GL Comment:eGFR is calculated b ased on the CKD-EPI 2020 equation Sodium 137 135 - 146 mmol/L 11/30/2023 5:20 AM EDT LABORATORY [facility] Potassium 3.9 3.5 - 5.1 mmol/L 11/30/2023 5:20 AM EDT LABORATORY [facility] Chloride 97(L) 98 - 107 mmol/L 11/30/2023 5:20 AM EDT LABORATORY [facility] CO2 25 22 - 32 mmol/L 11/30/2023 5:20 AM EDT LABORATORY [facility] Anion Gap 15 7 - 15 mmol/L 11/30/2023 5:20 AM EDT LABORATORY [facility] Glucose 135(H) 70 - 120 mg/dL 11/30/2023 5:20 AM EDT LABORATORY [facility] Calcium 8.4 8.4 - 10.2 mg/dL 11/30/2023 5:20 AM EDT LABORATORY [facility] Blood Venous blood specimen / Unknown Venipuncture / Unknown 11/30/2023 4:35 AM EDT 11/30/2023 4:49 AM EDT Roberto Edwards MD LAB BLOOD ORDERA BLES [facility] [address] [place] [address] * XR ABDOMEN 1 VIEW (11/29/2023 1:00 PM EDT) Anatomical Region Laterality Modality Abdomen, Pelvis Digital Radiogra phy 11/29/2023 12:4 9 PM EDT Impressions 11/29/2023 1:42 PM EDT IMPRESSION: NG tube tip below the left hemidiaphragm. THIS DOCUMENT HAS BEEN ELECTRONICALLY SIGNED BY WENDY ESPINAL MD Narrative 11/29/2023 1:42 PM EDT PROCEDURE INFORMATION: Exam: XR Abdomen Exam date and time: 11/29/2023 12:49 PM Age: 82 years old Clinical indication: Other: Gastric tube placement verification TECHNIQUE: Imaging protocol: Radiologic exam of the abdomen. Views: Frontal supine view of the abdomen. 1 View. COMPARISON: DX XR ABDOMEN 1 VIEW 11/29/2023 7:57 AM FINDINGS: Tubes, catheters and devices: NG tube tip below the left hemidiaphragm. Gastrointestinal tract: Gas-filled scattered loops of bowel Bones/joints: Unremarkable. Procedure Note Wendy Epsinal MD - 11/29/2023 PROCEDURE INFORMATION: Exam: XR Abdomen Exam date and time: 11/29/2023 12:49 PM Age: 82 years old Clinical indication: Other: Gastric tube placement verification TECHNIQUE: Imaging protocol: Radiologic exam of the abdomen. Views: Frontal supine view of the abdomen. 1 View. COMPARISON: DX XR ABDOMEN 1 VIEW 11/29/2023 7:57 AM FINDINGS: Tubes, catheters and devices: NG tube tip below the left hemidiaphragm. Gastrointestinal tract: Gas-filled scattered loops of bowel Bones/joints: Unremarkable. IMPRESSION IMPRESSION: NG tube tip below the left hemidiaphragm. THIS DOCUMENT HAS BEEN ELECTRONICALLY SIGNED BY WENDY ESPINLA MD Roberto Edwards MD RADIOLOGY ([facility]) * XR ABDOMEN 1 VIEW (11/29/2023 8:09 AM EDT) Anatomical Region Laterality Modality Abdomen, Pelvis Digital Radiogra phy 11/29/2023 7:57 AM EDT Impressions 11/29/2023 8:50 AM EDT IMPRESSION: Findings suggestive of generalized ileus. THIS DOCUMENT HAS BEEN ELECTRONICALLY SIGNED BY OLIVER HUMMEL MD Narrative 11/29/2023 8:50 AM EDT PROCEDURE INFORMATION: Exam: XR Abdomen Exam date and time: 11/29/2023 7:57 AM Age: 82 years old Clinical indication: Other: Postop emesis; Additional info: Postop emesis, kub in radiology TECHNIQUE: Imaging protocol: Radiologic exam of the abdomen. Views: Frontal supine view of the abdomen. 1 View. COMPARISON: CT UROGRAM HEMATURIA(Adult) 08/06/2023 8:41 AM FINDINGS: Gastrointestinal tract: Generalized distension of small and large bowel, suggestive of generalized ileus. Right-sided subcutaneous emphysema. Small catheter identified near right lower quadrant. Bones/joints: Degenerative changes. Procedure Note Oliver Hummel MD - 11/29/2023 PROCEDURE INFORMATION: Exam: XR Abdomen Exam date and time: 11/29/2023 7:57 AM Age: 82 years old Clinical indication: Other: Postop emesis; Additional info: Postop emesis,kub in radiology TECHNIQUE: Imaging protocol: Radiologic exam of the abdomen. Views: Frontal supine view of the abdomen. 1 View. COMPARISON: CT UROGRAM HEMATURIA(Adult) 08/06/2023 8:41 AM FINDINGS: Gastrointestinal tract: Generalized distension of small and large bowel, suggestive of generalized ileus. Right-sided subcutaneous emphysema.Small catheter identified near right lower quadrant. Bones/joints: Degenerative changes. IMPRESSION IMPRESSION: Findings suggestive of generalized ileus. THIS DOCUMENT HAS BEEN ELECTRONICALLY SIGNED BY OLIVER HUMMEL MD Roberto Edwards MD RADIOLOGY (RAD G ENERAL) * (ABNORMAL) DIFFERENTIAL, AUTOMATED (11/29/2023 5:16 AM EDT) WBC 14.83(H) 4.00 - 10.80 K/uL 11/29/2023 5:30 AM EDT LAB[facility]ORY [facility] Neutrophils % 85.5(H) 40.0 - 75.0 % 11/29/2023 5:30 AM EDT LAB[facility] Lymphocytes % 5.6(L) 18.0 - 42.0 % 11/29/2023 5:30 AM EDT [facility] Monocytes % 8.0 1.0 - 11.0 % 11/29/2023 5:30 AM EDT [facility] Eosinophils % 0.1 0.0 - 6.0 % 11/29/2023 5:30 AM EDT [facility] Basophils % 0.2 0.0 - 2.0 % 11/29/2023 5:30 AM EDT [facility] Immature Granulocytes % 0.6 0.0 - 2.0 % 11/29/2023 5:30 AM EDT LAB[facility] Absolute Neutrophils 12.68(H) 1.80 - 7.70 K/uL 11/29/2023 5:30 AM EDT [facility] Absolute Lymphocytes 0.83(L) 1.00 - 4.80 K/ul 11/29/2023 5:30 AM EDT LAB[facility]ATORY [facility] Absolute Monocytes 1.19(H) 0.00 - 1.10 K/uL 11/29/2023 5:30 AM EDT LAB[facility] Absolute Eosinophils 0.01 0.00 - 0.70 K/uL 11/29/2023 5:30 AM EDT LAB[facility]ORY [facility] Absolute Basophils 0.03 0.00 - 0.20 K/uL 11/29/2023 5:30 AM EDT LABORATORY [facility] Absolute Immature Granulocytes 0.09 0.00 - 0.20 K/uL 11/29/2023 5:30 AM EDT LABORATORY [facility] Blood Venous blood specimen / Unknown Venipuncture / Unknown 11/29/2023 5:16 AM EDT 11/29/2023 5:24 AM EDT Roberto Edwards MD LAB BLOOD ORDERA BLES LABORATORY [facility] [address] [place] [address] * (ABNORMAL) CBC (11/29/2023 5:16 AM EDT) WBC 14.83(H) 4.00 - 10.80 K/uL 11/29/2023 5:30 AM EDT LABORATORY [facility] RBC 4.50 4.50 - 5.25 M/uL 11/29/2023 5:30 AM EDT LABORATORY [facility] HGB 14.5 14.0 - 16.8 g/dL 11/29/2023 5:30 AM EDT LABORATORY [facility] HCT 42.5 40.0 - 48.4 % 11/29/2023 5:30 AM EDT LABORATORY [facility] MCV 94.4 82.0 - 99.5 fL 11/29/2023 5:30 AM EDT LABORATORY [facility] MCH 32.2 27.0 - 34.0 pg 11/29/2023 5:30 AM EDT LABORATORY [facility] MCHC 34.1 32.0 - 36.0 g/dL 11/29/2023 5:30 AM EDT LABORATORY [facility] RDW 12.8 11.5 - 15.5 % 11/29/2023 5:30 AM EDT LABORATORY [facility] PLT 221 140 - 400 K/uL 11/29/2023 5:30 AM EDT LABORATORY [facility] MPV 9.0 6.6 - 11.1 fL 11/29/2023 5:30 AM EDT LABORATORY [facility] nRBCs 0 <=0 /100 WBCs 11/29/2023 5:30 AM EDT [facility] Blood Venous blood specimen / Unknown Venipuncture / Unknown 11/29/2023 5:16 AM EDT 11/29/2023 5:24 AM EDT Roberto Edwards MD LAB BLOOD ORDERA BLES Performing Organization Address City/[facility]/ZIP Co de Phone Number LABORATORY GL [address] [place] [address] * (ABNORMAL) BASIC METABOLIC PANEL (11/29/2023 5:16 AM EDT) BUN 21(H) 6 - 20 mg/dL 11/29/2023 5:50 AM EDT LAB[facility]ORY [facility] Creatinine 1.3(H) 0.6 - 1.2 mg/dL 11/29/2023 5:50 AM EDT LAB[facility]ORY [facility] Estimated Glomerular Filtration Rate 53(L) >=60 mL/min 11/29/2023 5:50 AM EDT LAB[facility] Comment:eGFR is calculated b ased on the CKD-EPI 2020 equation Sodium 137 135 - 146 mmol/L 11/29/2023 5:50 AM EDT LAB[facility]ORY [facility] Potassium 3.9 3.5 - 5.1 mmol/L 11/29/2023 5:50 AM EDT LAB[facility] Chloride 99 98 - 107 mmol/L 11/29/2023 5:50 AM EDT [facility] CO2 25 22 - 32 mmol/L 11/29/2023 5:50 AM EDT [facility] Anion Gap 13 7 - 15 mmol/L 11/29/2023 5:50 AM EDT LAB[facility]ORY [facility] Glucose 140(H) 70 - 120 mg/dL 11/29/2023 5:50 AM EDT LAB[facility]ORY [facility] Calcium 8.5 8.4 - 10.2 mg/dL 11/29/2023 5:50 AM EDT [facility] Blood Venous blood specimen / Unknown Venipuncture / Unknown 11/29/2023 5:16 AM EDT 11/29/2023 5:24 AM EDT Roberto Edwards MD LAB BLOOD ORDERA BLES Performing Organization Address City/[facility]/ZIP Co de Phone Number LABORATORY [facility] [address] [place] [address] * (ABNORMAL) DIFFERENTIAL, AUTOMATED (11/28/2023 4:33 AM EDT) [facility] WBC 12.54(H) 4.00 - 10.80 K/uL 11/28/2023 5:31 AM EDT LABORATORY GL Neutrophils % 81.0(H) 40.0 - 75.0 % 11/28/2023 5:31 AM EDT LABORATORY GL Lymphocytes % 6.3(L) 18.0 - 42.0 % 11/28/2023 5:31 AM EDT LABORATORY GL Monocytes % 12.0(H) 1.0 - 11.0 % 11/28/2023 5:31 AM EDT LABORATORY GL Eosinophils % 0.0 0.0 - 6.0 % 11/28/2023 5:31 AM EDT LABORATORY GL Basophils % 0.2 0.0 - 2.0 % 11/28/2023 5:31 AM EDT LABORATORY GL Immature Granulocytes % 0.5 0.0 - 2.0 % 11/28/2023 5:31 AM EDT LABORATORY GL Absolute Neutrophils 10.15(H) 1.80 - 7.70 K/uL 11/28/2023 5:31 AM EDT LABORATORY GL Absolute Lymphocytes 0.79(L) 1.00 - 4.80 K/ul 11/28/2023 5:31 AM EDT LABORATORY GL Absolute Monocytes 1.51(H) 0.00 - 1.10 K/uL 11/28/2023 5:31 AM EDT LABORATORY GL Absolute Eosinophils 0.00 0.00 - 0.70 K/uL 11/28/2023 5:31 AM EDT LABORATORY GL Absolute Basophils 0.03 0.00 - 0.20 K/uL 11/28/2023 5:31 AM EDT LABORATORY GL Absolute Immature Granulocytes 0.06 0.00 - 0.20 K/uL 11/28/2023 5:31 AM EDT LABORATORY GL Blood Venous blood specimen / Unknown Venipuncture / Unknown 11/28/2023 4:33 AM EDT 11/28/2023 5:21 AM EDT Roberto Edwards MD LAB BLOOD ORDERA BLES Performing Organization Address City/[facility]/ZIP Co de Phone Number LABORATORY [facility] [address] [place] [address] * (ABNORMAL) CBC (11/28/2023 4:33 AM EDT) WBC 12.54(H) 4.00 - 10.80 K/uL 11/28/2023 5:31 AM EDT LABORATORY GL RBC 4.45 4.50 - 5.25 M/uL 11/28/2023 5:31 AM EDT LABORATORY GL HGB 14.3 14.0 - 16.8 g/dL 11/28/2023 5:31 AM EDT LABORATORY GL HCT 42.4 40.0 - 48.4 % 11/28/2023 5:31 AM EDT LABORATORY GL MCV 95.3 82.0 - 99.5 fL 11/28/2023 5:31 AM EDT LABORATORY GL MCH 32.1 27.0 - 34.0 pg 11/28/2023 5:31 AM EDT LABORATORY GL MCHC 33.7 32.0 - 36.0 g/dL 11/28/2023 5:31 AM EDT LABORATORY GL RDW 12.9 11.5 - 15.5 % 11/28/2023 5:31 AM EDT LABORATORY GL PLT 249 140 - 400 K/uL 11/28/2023 5:31 AM EDT LABORATORY GL MPV 9.4 6.6 - 11.1 fL 11/28/2023 5:31 AM EDT LABORATORY GL nRBCs 0 <=0 /100 WBCs 11/28/2023 5:31 AM EDT LABORATORY GL Blood Venous blood specimen / Unknown Venipuncture / Unknown 11/28/2023 4:33 AM EDT 11/28/2023 5:21 AM EDT Roberto Edwards MD LAB BLOOD ORDERA BLES LABORATORY [address] [address] * (ABNORMAL) BASIC METABOLIC PANEL (11/28/2023 4:33 AM EDT) BUN 21(H) 6 - 20 mg/dL 11/28/2023 5:59 AM EDT LAB[facility]ATORY [facility] Creatinine 1.4(H) 0.6 - 1.2 mg/dL 11/28/2023 5:59 AM EDT LAB[facility]ATORY [facility] Estimated Glomerular Filtration Rate 52(L) >=60 mL/min 11/28/2023 5:59 AM EDT LAB[facility]ATORY [facility] Comment:eGFR is calculated b ased on the CKD-EPI 2020 equation Sodium 137 135 - 146 mmol/L 11/28/2023 5:59 AM EDT LAB[facility]ATORY [facility] Potassium 4.1 3.5 - 5.1 mmol/L 11/28/2023 5:59 AM EDT LAB[facility]ORY [facility] Chloride 99 98 - 107 mmol/L 11/28/2023 5:59 AM EDT LAB[facility]ATORY [facility] CO2 25 22 - 32 mmol/L 11/28/2023 5:59 AM EDT LAB[facility]ORY [facility] Anion Gap 13 7 - 15 mmol/L 11/28/2023 5:59 AM EDT LAB[facility]ORY [facility] Glucose 142(H) 70 - 120 mg/dL 11/28/2023 5:59 AM EDT LAB[facility]ATORY [facility] Calcium 8.2(L) 8.4 - 10.2 mg/dL 11/28/2023 5:59 AM EDT LABORATORY GL Blood Venous blood specimen / Unknown Venipuncture / Unknown 11/28/2023 4:33 AM EDT 11/28/2023 5:21 AM EDT Roberto Edwards MD LAB BLOOD ORDERA BLES LABORATORY GL [address] [place] [address] * (ABNORMAL) DIFFERENTIAL, AUTOMATED (11/27/2023 1:13 PM EDT) WBC 15.29(H) 4.00 - 10.80 K/uL 11/27/2023 1:34 PM EDT LABORATORY GL Neutrophils % 89.3(H) 40.0 - 75.0 % 11/27/2023 1:34 PM EDT LABORATORY [facility] Lymphocytes % 3.6(L) 18.0 - 42.0 % 11/27/2023 1:34 PM EDT LABORATORY GL Monocytes % 6.1 1.0 - 11.0 % 11/27/2023 1:34 PM EDT LABORATORY [facility] Eosinophils % 0.1 0.0 - 6.0 % 11/27/2023 1:34 PM EDT LABORATORY [facility] Basophils % 0.4 0.0 - 2.0 % 11/27/2023 1:34 PM EDT LABORATORY GL Immature Granulocytes % 0.5 0.0 - 2.0 % 11/27/2023 1:34 PM EDT LABORATORY [facility] Absolute Neutrophils 13.65(H) 1.80 - 7.70 K/uL 11/27/2023 1:34 PM EDT LABORATORY [facility] Absolute Lymphocytes 0.55(L) 1.00 - 4.80 K/ul 11/27/2023 1:34 PM EDT LABORATORY [facility] Absolute Monocytes 0.94 0.00 - 1.10 K/uL 11/27/2023 1:34 PM EDT LABORATORY [facility] Absolute Eosinophils 0.01 0.00 - 0.70 K/uL 11/27/2023 1:34 PM EDT LABORATORY [facility] Absolute Basophils 0.06 0.00 - 0.20 K/uL 11/27/2023 1:34 PM EDT LABORATORY [facility] Absolute Immature Granulocytes 0.08 0.00 - 0.20 K/uL 11/27/2023 1:34 PM EDT LABORATORY [facility] Blood Venous blood specimen / Unknown Venipuncture / Unknown 11/27/2023 1:13 PM EDT 11/27/2023 1:29 PM EDT Roberto Edwards MD LAB BLOOD ORDERA BLES LABORATORY [facility] [address] [place] [address] * (ABNORMAL) CBC (11/27/2023 1:13 PM EDT) Pathologist [facility] WBC 15.29(H) 4.00 - 10.80 K/uL 11/27/2023 1:34 PM EDT LABORATORY [facility] RBC 4.79 4.50 - 5.25 M/uL 11/27/2023 1:34 PM EDT LABORATORY [facility] HGB 15.5 14.0 - 16.8 g/dL 11/27/2023 1:34 PM EDT LABORATORY [facility] HCT 45.1 40.0 - 48.4 % 11/27/2023 1:34 PM EDT LABORATORY [facility] MCV 94.2 82.0 - 99.5 fL 11/27/2023 1:34 PM EDT LABORATORY [facility] MCH 32.4 27.0 - 34.0 pg 11/27/2023 1:34 PM EDT LABORATORY [facility] MCHC 34.4 32.0 - 36.0 g/dL 11/27/2023 1:34 PM EDT LABORATORY [facility] RDW 12.7 11.5 - 15.5 % 11/27/2023 1:34 PM EDT LABORATORY [facility] PLT 238 140 - 400 K/uL 11/27/2023 1:34 PM EDT LABORATORY [facility] MPV 9.2 6.6 - 11.1 fL 11/27/2023 1:34 PM EDT LABORATORY [facility] nRBCs 0 <=0 /100 WBCs 11/27/2023 1:34 PM EDT LABORATORY [facility] Blood Venous blood specimen / Unknown Venipuncture / Unknown 11/27/2023 1:13 PM EDT 11/27/2023 1:29 PM EDT Roberto Edwards MD LAB BLOOD ORDERA BLES LABORATORY [facility] [address] [place] [address] * (ABNORMAL) BASIC METABOLIC PANEL (11/27/2023 1:13 PM EDT) Pathologist [facility] BUN 17 6 - 20 mg/dL 11/27/2023 1:53 PM EDT LABORATORY [facility] Creatinine 1.0 0.6 - 1.2 mg/dL 11/27/2023 1:53 PM EDT LABORATORY GL Estimated Glomerular Filtration Rate 74 >=60 mL/min 11/27/2023 1:53 PM EDT LABORATORY GL Comment:eGFR is calculated b ased on the CKD-EPI 2020 equation Sodium 139 135 - 146 mmol/L 11/27/2023 1:53 PM EDT LABORATORY [facility] Potassium 4.4 3.5 - 5.1 mmol/L 11/27/2023 1:53 PM EDT LABORATORY [facility] Chloride 102 98 - 107 mmol/L 11/27/2023 1:53 PM EDT LABORATORY [facility] CO2 22 22 - 32 mmol/L 11/27/2023 1:53 PM EDT LABORATORY [facility] Anion Gap 15 7 - 15 mmol/L 11/27/2023 1:53 PM EDT LABORATORY GL[facility] Glucose 162(H) 70 - 120 mg/dL 11/27/2023 1:53 PM EDT LABORATORY [facility] Calcium 8.4 8.4 - 10.2 mg/dL 11/27/2023 1:53 PM EDT LABORATORY GL Blood Venous blood specimen / Unknown Venipuncture / Unknown 11/27/2023 1:13 PM EDT 11/27/2023 1:29 PM EDT Roberto Edwards MD LAB BLOOD ORDERA BLES LABORATORY GL [address] [place] [address] * SARS-COV-2 (COVID-19), NAAT (11/27/2023 12:48 PM EDT) SARS-CoV-2 (COVID-19) Result Negative Negative 11/27/2023 1:36 PM EDT LABORATORY GL Comment: 2019 Novel Coronavirus not detected. This express test was developed and its performance characteristics determined by [facility]. It has not been cleared or approved by the U.S. Food and Drug Administration (FDA). FDA does not require this test to go thru premarket FDA review. This test is used for clinical purposes. It should not be regarded as investigational or for research. This laboratory is certified under the Clinical Laboratory Improvement Amendments (CLIA) as qualified to perform high complexity clinical laboratory testing. This test is a nucleic acid amplification test (NAAT), a reverse transcriptase polymerase chain reaction (RT-PCR) test, or a Centers for Disease Control- acceptable equivalent. The test is performed in a high complexity Clinical Laboratory Improvement Amendments-(CLIA) certified laboratory. The test is acceptable for SARS-CoV-2 diagnosis, surveillance, and travel within the [place] and to most countries. Please check with local testing authorities about requirements before travel. The validation of bronchial specimens, tracheal aspirates, and sputum for this assay was developed and performance characteristics determined by [facility]. The validation of alternate specimen types has not been cleared or approved by the U.S. Food and Drug Administration (FDA). It has been determined that such clearance is not necessary. Upper Respiratory Mid-turbinate nasal swab / Unknown Non-blood Collection / Unknown 11/27/2023 12:48 PM EDT 11/27/2023 12:50 PM EDT Roberto Edwards MD LAB MICRO - GENE RAL ORDERABLES Performing Organization Address [facility]/ZIP Co de Phone Number LABORATORY [address] [address] * (ABNORMAL) GLUCOSE METER, POINT OF CARE (11/27/2023 10:39 AM EDT) Glucose Meter 167(H) 70 - 120 mg/dL 11/27/2023 10:42 AM EDT [facility] Blood Whole blood specimen / Unknown 11/27/2023 10:39 AM EDT 11/27/2023 10:42 AM EDT Roberto Edwards MD LAB POINT OF CAR E TEST DOCKED DEVICE UNSOLICITED RESULTS [facility] [address] [place] [id number] * (ABNORMAL) GLUCOSE METER, POINT OF CARE (11/27/2023 7:22 AM EDT) Glucose Meter 129(H) 70 - 120 mg/dL 11/27/2023 7:41 AM EDT [facility] Blood Whole blood specimen / Unknown 11/27/2023 7:22 AM EDT 11/27/2023 7:41 AM EDT Roberto Edwards MD LAB POINT OF CAR E TEST DOCKED DEVICE UNSOLICITED RESULTS [facility] [address] [place] [id number] documented in this encounter Visit Diagnoses Diagnosis Urothelial carcinoma of kidney, 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 NOTE: Maximum of 4000 mg per 24 hours of acetaminophen from all acetaminophen containing products., Pre-Op, Indication: Patient is strictly NPO New Bag 11/27/2023 7:33 AM EDT 1,000 mg 400 mL/hr Acetaminophen (Tylenol) 160 MG/5ML oral liquid 975 mg 975 mg, Oral, Q6H, First dose on Sat11/29/23 at 1800, Until Discontinued, Maximum or 4 grams (4000mg) per day. Given 11/30/2023 12:02 PM EDT 975 mg Given 11/29/2023 5:33 PM EDT 975 mg Acetaminophen (Tylenol) 160 MG/5ML oral liquid 975 mg 975 mg, Oral, Q6H, First dose on Sat12/02/23 at 1315, Until Discontinued, Maximum or 4 grams (4000mg) per day. Given 12/03/2023 11:24 AM EDT 975 mg Given 12/02/2023 5:27 PM EDT 975 mg Given 12/02/2023 12:49 PM EDT 975 mg Acetaminophen (Tylenol) tab 975 mg 975 mg, Oral, Q6H, First dose on Sat11/27/23 at 1600, Last dose on Sat12/02/23 at 1200, For 5 days, Maximum 4 g acetaminophen/day. Avoid in patients with severe hepatic impairment or severe active liver disease. Use for 5 days., Post-op Given 11/29/2023 1:40 PM EDT 975 mg Given 11/29/2023 5:40 AM EDT 975 mg Given 11/28/2023 11:13 PM EDT 975 mg Acetaminophen (Tylenol) tab 975 mg 975 mg, Oral, Q6H, First dose on Sat11/30/23 at 1830, Until Discontinued, Maximum of 4 grams (4000 mg) per day. Given 12/01/2023 12:02 PM EDT 975 mg Given 12/01/2023 6:23 AM EDT 975 mg Given 11/30/2023 6:04 PM EDT 975 mg Albuterol Sulfate (Proventil) (2.5 MG/3ML) 0.083% inhalation solution 2.5 mg 2.5 mg, Nebulizer, Q4H PRN Dyspnea, Starting on Sat11/27/23 at 1309, Until Sat12/04/23 at 2254 Given 11/28/2023 4:50 PM EDT 2.5 mg albuterol-ipratropium (Duoneb) inhalation solution 3 mL 3 mL, Nebulizer, ONCE, On Sat11/27/23 at 0830, For 1 dose, 3 mL = 0.5 mg ipratropium/ 2.5 mg albuterol, Pre-Op Given 11/27/2023 8:04 AM EDT 3 mL Bisacodyl (Dulcolax) supp 10 mg 10 mg, Rectal, Q12H PRN Constipation, Starting on Sat11/28/23 at 0757, Until Sat12/04/23 at 2254 Given 12/01/2023 10:54 AM EDT 10 mg Given 11/29/2023 10:10 AM EDT 10 mg Given 11/28/2023 5:32 PM EDT 10 mg buPROPion (Wellbutrin) tab 50 mg 50 mg, Oral, BID (.AM/PM), First dose on Sat11/27/23 at 2100, Until Discontinued Given 12/04/2023 8:34 AM EDT 50 mg Given 12/03/2023 8:40 PM EDT 50 mg Given 12/03/2023 9:08 AM EDT 50 mg ceFAZolin in dextrose (Ancef) ivpb 1 g 1 g, IV Piggyback, Q8H, 15 doses, First dose on Sat12/01/23 at 1400, Last dose on Sat12/06/23 at 0600 New Bag 12/04/2023 1:52 PM EDT 1 g 100 mL/hr New Bag 12/04/2023 6:06 AM EDT 1 g 100 mL/hr New Bag 12/03/2023 8:44 PM EDT 1 g 100 mL/hr ceFAZolin in dextrose (Ancef) ivpb 2 g 2 g, IV Piggyback, Q8H, 6 doses, First dose on Sat11/27/23 at 1600, Last dose on Sat11/29/23 at 0800, Post-op New 11/29/2023 8:33 AM EDT 2 g 100 mL/hr New Bag 11/28/2023 11:16 PM EDT 2 g 100 mL/hr New Bag 11/28/2023 3:32 PM EDT 2 g 100 mL/hr check patch placement order QSHIFT, First dose on Sat11/27/23 at 1600, Until Discontinued, Routine, Scopolamine (TRANSDERM SCOP) patch placement check diphenhydrAMINE (Benadryl) inj 25 mg 25 mg, IV Push, Q6H PRN Other, nausea, Starting on Sat11/27/23 at 1514, Until Sat12/04/23 at 2254 Given 12/03/2023 11:46 PM EDT 25 mg Given 11/30/2023 10:18 PM EDT 25 mg Given 11/27/2023 3:36 PM EDT 25 mg Docusate Sodium (Colace) cap 100 mg 100 mg, Oral, BID (.AM/PM), First dose on Sat11/27/23 at 2100, Until Discontinued, For oral administration ONLY, if route of administration is other than oral and alternative product must be ordered., Post-op Given 12/04/2023 7:3 6 AM EDT 100 mg Given 12/03/2023 8:40 PM EDT 100 mg Given 12/03/2023 9:07 AM EDT 100 mg Famotidine (Pepcid) tab 20 mg 20 mg, Oral, Q12H, First dose on Sat11/27/23 at 2100, Until Discontinued, Post-op Given 12/01/2023 7:55 AM EDT 20 mg Given 11/30/2023 8:52 PM EDT 20 mg Given 11/30/2023 8:57 AM EDT 20 mg Finasteride (Proscar) tab 5 mg 5 mg, Oral, Daily(AM), First dose on Sat11/27/23 at 1445, Until Discontinued Given 12/04/2023 7:36 AM EDT 5 mg Given 12/03/2023 9:07 AM EDT 5 mg Given 12/02/2023 9:50 AM EDT 5 mg fluticasone (Flonase) nasal inhaler 2 [place] 2 [place], Each Nostril, Daily(AM), First dose on Sat11/27/23 at 1445, Until Discontinued Given 12/04/2023 7:36 AM EDT 2 Sprays Given 12/02/2023 9:49 AM EDT 2 Sprays Given 12/01/2023 9:00 AM EDT 2 Sprays Haloperidol Lactate (Haldol) 5 MG/ML inj 1 mg 1 mg, IV Push, ONCE, On Sat11/27/23 at 1415, For 1 dose Given 11/27/2023 1:50 PM EDT 1 mg hEParin inj 5,000 Units 5,000 Units, Subcutaneous, Q12H, First dose on Sat11/28/23 at 0900, Until Discontinued, Post-op Given 12/04/2023 7:36 AM EDT 5,000 Units Abdomen Right Lower Given 12/03/2023 8:40 PM EDT 5,000 Units A bdomen Left Lower Given 12/03/2023 9:08 AM EDT 5,000 Units A bdomen Left Lower hydroCHLOROthiazide cap 12.5 mg 12.5 mg, Oral, Daily(AM), First dose on Sat11/27/23 at 1445, Until Discontinued, Component of lisinopril-HCTZ formulation Given 12/01/2023 7:55 AM EDT 12. 5 mg Given 11/30/2023 8:57 AM EDT 12.5 mg Given 11/29/2023 9:33 AM EDT 12.5 mg HYDROmorphone (Dilaudid) inj 0.5 mg 0.5 mg, IV Push, Q15 MIN PRN Pain, Severe, Pain, Breakthrough, Starting on Sat11/27/23 at 1300, Until Sat11/27/23 at 1428, Administer only postop in PACU. Hold for respiratory rate less than 12. Administer up to a total of 2mg., PACU Given 11/27/2023 1:25 PM EDT 0.5 mg Given 11/27/2023 1:05 PM EDT 0.5 mg hydrOXYzine HCl tab 25 mg 25 mg, Oral, DAILY PRN Anxiety, Starting on Sat11/27/23 at 1301, Until Sat12/04/23 at 2254 Given 12/03/2023 8:4 0 PM EDT 25 mg Given 12/02/2023 9:00 PM EDT 25 mg Given 12/01/2023 8:20 PM EDT 25 mg isolyte-S pH 7.4 infusion Intravenous, Plasma-LYTE 148, isolyte-S, and isolyte-S pH 7.4 are considered equivalent - including for MAR barcode scanning., CONTINUOUS, Starting on Sat11/27/23 at 0730, Until Sat11/28/23 at 1418, Pre-Op Restarted 11/27/2023 8:17 AM EDT Continue from Pre-Op 11/27/2023 8:16 AM EDT 100 mL/hr New Bag 11/27/2023 7:34 AM EDT 1,000 mL 10 mL/hr isolyte-S pH 7.4 infusion Intravenous, at 75 mL/hr, Plasma-LYTE 148, isolyte-S, and isolyte-S pH 7.4 are considered equivalent - including for MAR barcode scanning., CONTINUOUS, Starting on Sat11/27/23 at 1600, Until Sat11/28/23 at 1418 New Bag 11/28/2023 5:59 AM EDT 75 mL/hr Rate Verify 11/28/2023 4:02 AM EDT 75 mL/hr Restarted 11/28/2023 12:12 AM EDT 75 mL/hr Lisinopril (Prinivil) tab 20 mg 20 mg, Oral, Daily(AM), First dose on Sat11/27/23 at 1445, Until Discontinued, Component of lisinopril-HCTZ formulation Given 12/01/2023 7:55 AM EDT 20 mg Given 11/30/2023 8:58 AM EDT 20 mg Given 11/29/2023 9:33 AM EDT 20 mg LORazepam (Ativan) tab 0.25 mg 0.25 mg, Oral, Q8H PRN Anxiety, Starting on Sat11/27/23 at 1721, Until Sat12/02/23 at 1416 Given 11/30/2023 8:57 AM EDT 0.25 mg LORazepam (Ativan) tab 0.25 mg 0.25 mg, Oral, QHS, First dose on Sat11/27/23 at 2200, Until Discontinued Given 12/03/2023 8:40 PM EDT 0.25 mg Given 12/02/2023 9:00 PM EDT 0.25 mg Given 12/01/2023 8:20 PM EDT 0.25 mg LORazepam (Ativan) tab 0.25 mg 0.25 mg, Oral, Q8H PRN Severe anxiety, Starting on Sat12/02/23 at 1416, Until Sat12/04/23 at 2254 meclizine (Antivert) tab 25 mg 25 mg, Oral, TID PRN Nausea, Starting on Sat11/27/23 at 1302, Until Sat12/02/23 at 1421 Given 11/29/2023 8:25 AM EDT 25 mg meclizine (Antivert) tab 25 mg 25 mg, Oral, TID PRN Dizziness, Starting on Sat12/02/23 at 1420, Until Sat12/04/23 at 2254 melatonin tab 3 mg 3 mg, Oral, HS PRN Insomnia, Sleep, Starting on Sat11/27/23 at 1305, Until Sat12/04/23 at 2254, Post-op Given 12/03/2023 8:40 PM EDT 3 mg Given 12/02/2023 9:00 PM EDT 3 mg Given 12/01/2023 8:20 PM EDT 3 mg metoclopramide (Reglan) inj 10 mg 10 mg, IV Push, ONCE, On Sat11/27/23 at 1330, For 1 dose Given 11/27/2023 12:56 PM EDT 10 mg metoclopramide (Reglan) inj 10 mg 10 mg, IV Push, Q6H PRN If unable to take by mouth for vomiting, Starting on Sat11/27/23 at 1305, Until Sat12/04/23 at 2254, Use as second line therapy if nausea and/or vomiting unrelieved with ondansetron. May use if patient unable to take oral metoclopramide., Post-op Given 12/03/2023 11:46 PM EDT 10 mg metoclopramide (Reglan) tab 10 mg 10 mg, Oral, Q6H PRN Vomiting, Starting on Sat11/27/23 at 1305, Until Sat12/04/23 at 2254, Use as second line therapy if nausea and/or vomiting unrelieved with ondansetron., Post-op Given 11/27/2023 11:39 PM EDT 10 mg mirtazapine ODT (Remeron Soltab) tab 15 mg 15 mg, Oral, HS, First dose on Sat11/27/23 at 2200, Until Discontinued Given 12/03/2023 8:40 PM EDT 15 mg Given 12/02/2023 9:00 PM EDT 15 mg Given 12/01/2023 8:20 PM EDT 15 mg mitoMYcin (Mutamycin) 40 mg in NSS 40 mL bladder instillation Intravesical, SYRINGE FOR INTRAVESICAL USE ONLY!, ONCALL, 1 dose, Starting on Sat11/27/23 at 0646, Until Sat11/27/23 at 0835, Pre-Op Given 11/27/2023 8:35 AM EDT 40 mg NSS 0.9% 500 mL bolus infusion Intravenous, at 250 mL/hr Administer over 2 Hours, Administer entire volume within 60 minutes or less., ONCE, 1 dose, On 11/30/23 at 1900 New Bag 11/30/2023 6:19 PM EDT 500 mL 250 mL/hr NSS infusion Intravenous, at 75 mL/hr, CONTINUOUS, Starting on Sat11/29/23 at 0815, Until 11/30/23 at 1815 Rate Verify 11/30/2023 5:13 AM EDT 75 mL/hr Rate Verify 11/30/2023 12:43 AM EDT 75 mL/hr New Bag 11/29/2023 9:27 PM EDT 75 mL/hr NSS infusion Intravenous, at 75 mL/hr, CONTINUOUS, Starting on Sat12/01/23 at 0030, Until Sat12/04/23 at 2254 New Bag 12/04/2023 1:51 PM EDT 75 mL/hr New Bag 12/03/2023 11:47 PM EDT 75 mL/hr Restarted 12/03/2023 9:14 PM EDT 75 mL/hr omeprazole (PriLOSEC) cap 20 mg 20 mg, Oral, BEFORE BREAKFAST, First dose on Sat12/04/23 at 0745, Until Discontinued, This med should NOT be Crushed or Chewed Given 12/04/2023 7:37 AM EDT 20 mg ondansetron (Zofran) inj 4 mg 4 mg, IV Push, Q6H PRN May use for nausea or vomiting if patient unable to take oral ondansetron, Starting on Sat11/27/23 at 1305, Until Sat12/04/23 at 2254, Post-op Given 12/04/2023 11:49 AM EDT 4 mg Given 12/03/2023 7:14 PM EDT 4 mg Given 12/03/2023 2:15 PM EDT 4 mg ondansetron ODT (Zofran) tab 4 mg 4 mg, On Tongue, Q6H PRN Nausea, Starting on Sat11/27/23 at 1305, Until Sat12/04/23 at 2254, Post-op Given 11/28/2023 5:38 AM EDT 4 mg oxyCODONE (Oxy IR) tab 5 mg 5 mg, Oral, Q4H PRN Pain, Moderate, Starting on Sat11/27/23 at 1306, Until Sat12/04/23 at 2254, Hold for somnolence or respiratory rate less than 10, Post-op Given 11/28/2023 5:39 AM EDT 5 mg Pantoprazole (Protonix) inj 40 mg 40 mg, IV Push, BEFORE BREAKFAST, First dose on Sat12/01/23 at 1315, Until Discontinued, IV push instructions: Flush I.V. Line before and after administration. In-line filter not required. 2-minute infusion: The volume of reconstituted solution (4mg/ml) to be injected may be administered intravenously over at least 2 minutes. ( Dilute each vial with 10 ml of 0.9% saline PF) Given 12/03/2023 7:49 AM EDT 40 mg Given 12/02/2023 8:12 AM EDT 40 mg Given 12/01/2023 1:45 PM EDT 40 mg phenol (chlorASEPTIC) spray 3 [place] 3 [place], Oral, Q4H PRN Sore throat, Dry Mouth, Starting on Sat11/27/23 at 1305, Until Sat12/02/23 at 1417, See nursing care plan , Post-op Given 12/01/2023 5:35 PM EDT 3 Sprays Given 11/30/2023 3:39 AM EDT 3 Sprays phenol (chlorASEPTIC) spray 3 [place] 3 [place], Oral, Q4H PRN Dry Mouth, Starting on Sat12/02/23 at 1417, Until Sat12/04/23 at 2254, See nursing care plan , Post-op Polyethylene Glycol 3350 (Miralax) oral powder 17 g 17 g (1 Packet), Oral, HS, First dose on Sat11/27/23 at 2200, Last dose on Sat12/10/23 at 2200, For 14 doses, Mix in 8 oz of water, juice, soda, coffee, or tea., Post-op Given 12/03/2023 8:40 PM EDT 17 g Given 12/02/2023 9:01 PM EDT 17 g Given 12/01/2023 8:20 PM EDT 17 g propranolol (Inderal) tab 15 mg 15 mg, Oral, BID (INP ADJ TIME), First dose on Sat11/27/23 at 1515, Until Discontinued, Hold for HR less than 60 or SBP below 100 and notify service if dose is held Given 12/04/2023 1:49 PM EDT 15 mg Given 12/03/2023 2:09 PM EDT 15 mg Given 12/02/2023 1:47 PM EDT 15 mg Scopolamine (Transderm Scop) patch 1 mg 1 mg (1 Patch), Transdermal, Q3DAYS, First dose on Sat11/27/23 at 1600, Until Discontinued, Do NOT cut the patch. All Scopolamine patches deliver 1 mg over 72 hours. Remove any Scopolamine patches the patient may currently be wearing prior to applying the new patch. Patch Applied 12/03/2023 2:56 PM EDT 1 mg Other-Specify Patch Applied 11/30/2023 3:22 PM EDT 1 mg Other-Specify Patch Applied 11/27/2023 4:56 PM EDT 1 mg Other-Specify Simethicone (Mylicon) chew tab 80 mg 80 mg, Oral, Q6H PRN Gas, Indigestion, Starting on Sat11/27/23 at 1305, Until Sat12/04/23 at 2254, Tablets need to be chewed before swallowing!, Post-op Given 11/30/2023 3:38 AM EDT 80 mg Given 11/28/2023 8:33 PM EDT 80 mg tamsulosin (Flomax) cap 0.4 mg 0.4 mg, Oral, Daily(AM), First dose on Sat11/27/23 at 1445, Until Discontinued, Administer 30 min after meal. This med should NOT be Crushed or Chewed or opened! ORAL administration only!! Given 12/04/2023 7:36 AM EDT 0.4 mg Given 12/03/2023 9:07 AM EDT 0.4 mg Given 12/02/2023 9:49 AM EDT 0.4 mg documented in this encounter Active and Recently Administered Medications Times are shown in EDT. Scheduled Medication Order 12/02/2023 12/03/2023 12/04/2023 Acetaminophen (Tylenol) 160 MG/5ML oral liquid 975 mg 975 mg, Oral, Q6H, First dose on Sat12/02/23 at 1315, Until Discontinued, Maximum or 4 grams (4000mg) per day. 1249 (Given - Provider: Amaris Campbell RN)1727 (Given - Provider: Amaris Campbell RN) 0000 (Not Given - Provider: Joanna Tucker RN - Reason: Refused-Notify Provider)0600 (Not Given - Provider: Joanna Tucker RN - Reason: Refused-Notify Provider)1124 (Given - Provider: Zandra Alvarez [facility] Instructor)1800 (Not Given - Provider: Sylvia Campbell RN - Reason: Refused-Notify Provider) 0000 (Not Given - Provider: Joanna Tucker RN - Reason: Refused-Notify Provider)0600 (Not Given - Provider: Joanna Tucker RN - Reason: Refused-Notify Provider)1200 (Not Given - Provider: Hernandez Nick RN - Reason: Refused-Notify Provider)1800 (Not Given - Provider: Hernandez Nick RN - Reason: Refused-Notify Provider) buPROPion (Wellbutrin) tab 50 mg 50 mg, Oral, BID (.AM/PM), First dose on Sat11/27/23 at 2100, Until Discontinued 0949 (Given - Provider: aSnta Strickland RN)2100 (Given - Provider: Joanna Tucker RN) 09 (Given - Provider: Zandra Alvarez, [facility] Instructor)204 (Given - Provider: Joanna Tucker RN) 0834 (Given - Provider: Hernandez Nick RN) ceFAZolin in dextrose (Ancef) ivpb 1 g 1 g, IV Piggyback, Q8H, 15 doses, First dose on Sat12/01/23 at 1400, Last dose on Sat12/06/23 at 0600 0544 (New Bag - Provider: Joanna Tucker RN)0613 (Stopped - Provider: Joanna Tucker RN)1353 (New Bag - Provider: Santa Strickland RN)2108 (New Bag - Provider: Joanna Tucker RN)2138 (Stopped - Provider: Joanna Tucker RN) 0556 (New Bag - Provider: Joanna Tucker RN)0626 (Stopped - Provider: Joanna Tucker RN)1412 (New Bag - Provider: Hernandez Nick RN)1442 (Stopped - Provider: Hernandez Nick RN)2044 (New Bag - Provider: Joanna Tucker RN)2114 (Stopped - Provider: Joanna Tucker RN) 0606 (New Bag - Provider: Joanna Tucker RN)0636 (Stopped - Provider: Joanna Tucker RN)1352 (New Bag - Provider: Amaris Campbell RN)2254 (Due: Stopped) check patch placement order QSHIFT, First dose on Sat11/27/23 at 1600, Until Discontinued, Routine, Scopolamine (TRANSDERM SCOP) patch placement check 0000 (Patch Placement Verified - Provider: Joanna Tucker RN)0800 (Patch Placement Verified - Provider: Santa Strickland RN)1600 (Patch Placement Verified - Provider: Santa Strickland RN) 0000 (Patch Placement Verified - Provider: Joanna Tucker RN)0800 (Patch Placement Verified - Provider: KRISTIE Schulz Instructor - Comment: behind L ear)1600 (Patch Placement Verified - Provider: Hernandez Nick RN) 0000 (Patch Placement Verified - Provider: Joanna Tucker RN)0800 (Patch Placement Verified - Provider: Hernandez Nick RN)1600 (Patch Placement Verified - Provider: Hernandez Nick RN) Docusate Sodium (Colace) cap 100 mg 100 mg, Oral, BID (.AM/PM), First dose on Sat11/27/23 at 2100, Until Discontinued, For oral administration ONLY, if route of administration is other than oral and alternative product must be ordered., Post-op 0950 (Given - Provider: Santa Strickland RN)2100 (Given - Provider: Joanna Tucker RN) 0907 (Given - Provider: KRISTIE Schulz Instructor)2039 (Given - Provider: Joanna Tucker RN) 0736 (Given - Provider: Hernandez Nick RN) Finasteride (Proscar) tab 5 mg 5 mg, Oral, Daily(AM), First dose on Sat11/27/23 at 1445, Until Discontinued 0950 (Given - Provider: Santa Strickland RN) 0907 (Given - Provider: KRISTIE Schulz Instructor) 0736 (Given - Provider: Hernandez Nick RN) fluticasone (Flonase) nasal inhaler 2 [place] 2 [place], Each Nostril, Daily(AM), First dose on Sat11/27/23 at 1445, Until Discontinued 0949 (Given - Provider: Santa Strickland RN) 0908 (Not Given - Provider: KRISTIE Schulz Instructor - Reason: Refused-Notify Provider) 0736 (Given - Provider: Hernandez Nick RN) hEParin inj 5,000 Units 5,000 Units, Subcutaneous, Q12H, First dose on Sat11/28/23 at 0900, Until Discontinued, Post-op 0950 (Given - Provider: Santa Strickland RN)210 (Given - Provider: Joanna Tucker RN) 0908 (Given - Provider: KRISTIE Schulz Instructor)2039 (Given - Provider: Joanna Tucker RN) 0736 (Given - Provider: Hernandez Nick, EDYTA) LORazepam (Ativan) tab 0.25 mg 0.25 mg, Oral, QHS, First dose on Sat11/27/23 at 2200, Until Discontinued 2099 (Given - Provider: Joanna Tucker RN) 2039 (Given - Provider: Joanna Tucker RN) mirtazapine ODT (Remeron Soltab) tab 15 mg 15 mg, Oral, HS, First dose on Sat11/27/23 at 2200, Until Discontinued 2099 (Given - Provider: Joanna Tucker RN) 2039 (Given - Provider: Joanna Tucker, EDYTA) omeprazole (PriLOSEC) cap 20 mg 20 mg, Oral, BEFORE BREAKFAST, First dose on Sat12/04/23 at 0745, Until Discontinued, This med should NOT be Crushed or Chewed 07 (Given - Provider: Hernandez Nick, EDYTA) Pantoprazole (Protonix) inj 40 mg (CANCELED) 40 mg, IV Push, BEFORE BREAKFAST, First dose on Sat12/01/23 at 1315, Until Discontinued, IV push instructions: Flush I.V. Line before and after administration. In-line filter not required. 2-minute infusion: The volume of reconstituted solution (4mg/ml) to be injected may be administered intravenously over at least 2 minutes. ( Dilute each vial with 10 ml of 0.9% saline PF) 0812 (Given - Provider: Santa Strickland RN) 0749 (Given - Provider: Zandra Alvarez, [facility] Instructor) Polyethylene Glycol 3350 (Miralax) oral powder 17 g 17 g (1 Packet), Oral, HS, First dose on Sat11/27/23 at 2200, Last dose on Sat12/10/23 at 2200, For 14 doses, Mix in 8 oz of water, juice, soda, coffee, or tea., Post-op 2100 (Given - Provider: Joanna Tucker RN) 2039 (Given - Provider: Joanna Tucker RN) propranolol (Inderal) tab 15 mg 15 mg, Oral, BID (INP ADJ TIME), First dose on Sat11/27/23 at 1515, Until Discontinued, Hold for HR less than 60 or SBP below 100 and notify service if dose is held 0600 (Not Given - Provider: Joanna Tucker RN - Reason: Refused-Notify Provider)1347 (Given - Provider: Santa Strickland RN) 0600 (Not Given - Provider: Joanna Tucker RN - Reason: Refused-Notify Provider)1409 (Given - Provider: Hernandez Nick RN) 0600 (Not Given - Provider: Joanna Tucker RN - Reason: Refused-Notify Provider)1349 (Given - Provider: Amaris Campbell RN) Scopolamine (Transderm Scop) patch 1 mg 1 mg (1 Patch), Transdermal, Q3DAYS, First dose on Sat11/27/23 at 1600, Until Discontinued, Do NOT cut the patch. All Scopolamine patches deliver 1 mg over 72 hours. Remove any Scopolamine patches the patient may currently be wearing prior to applying the new patch. 1456 (Patch Applied - Provider: Hernandez Nick RN - Comment: behind R ear) 1854 (Due: Patch Removed - Provider: Discharge, Physician - Comment: Time automatically adjusted from order being discontinued) tamsulosin (Flomax) cap 0.4 mg 0.4 mg, Oral, Daily(AM), First dose on Sat11/27/23 at 1445, Until Discontinued, Administer 30 min after meal. This med should NOT be Crushed or Chewed or opened! ORAL administration only!! 0949 (Given - Provider: Santa Strickland RN) 0907 (Given - Provider: Zandra Alvarez, [facility] Instructor) 0736 (Given - Provider: Hernandez Nick RN) Continuous Medication Order 12/02/2023 12/03/2023 12/04/2023 NSS infusion Intravenous, at 75 mL/hr, CONTINUOUS, Starting on Sat12/01/23 at 0030, Until Sat12/04/23 at 2254 0351 (Paused - Provider: Joanna Tucker RN)0353 (Restarted - Provider: Joanna Tucker RN)0356 (New Bag - Provider: Joanna Tucker RN)0543 (Paused - Provider: Joanna Tucker, EDYTA)0614 (Restarted - Provider: Joanna Tucker RN)0617 (Rate Verify - Provider: Joanna Tucker RN)1636 (Paused - Provider: Joanna Tucker RN)1641 (Restarted - Provider: Joanna Tucker RN)1715 (Paused - Provider: Joanna Tucker RN)1727 (Restarted - Provider: Joanna Tucker RN)1906 (Paused - Provider: Joanna Tucker RN)190 (Restarted - Provider: Joanna Tucker RN)191 (New Bag - Provider: Amaris Campbell RN)210 (Paused - Provider: Joanna Tucker RN)213 (Restarted - Provider: Joanna Tucker RN)224 (Paused - Provider: Joanna Tucker RN)224 (Restarted - Provider: Joanna Tucker RN) 0206 (Paused - Provider: Joanna Tucker RN)0211 (Restarted - Provider: Joanna Tucker RN)0525 (Paused - Provider: Joanna Tucker RN)0528 (Restarted - Provider: Joanna Tucker RN)0555 (Paused - Provider: Joanna Tucker RN)0626 (Restarted - Provider: Joanna Tucker RN)0628 (Stopped - Provider: Joanna Tucker RN)0940 (New Bag - Provider: Hernandez Nick RN)1734 (Rate Verify - Provider: Hernandez Nick RN)1803 (Paused - Provider: Joanna Tucker RN)1811 (Restarted - Provider: Joanna Tucker RN)181 (Paused - Provider: Joanna Tucker RN)181 (Restarted - Provider: Joanna Tucker, RN)204 (Paused - Provider: Joanna Tucker RN)211 (Restarted - Provider: Joanna Tucker RN)234 (Stopped - Provider: Joanna Tucker RN)234 (New Bag - Provider: Joanna Tucker RN) 1351 (New Bag - Provider: Amaris Campbell RN)2254 (Due: Stopped) PRN Medication Order 12/02/2023 12/03/2023 12/04/2023 Albuterol Sulfate (Proventil) (2.5 MG/3ML) 0.083% inhalation solution 2.5 mg 2.5 mg, Nebulizer, Q4H PRN Dyspnea, Starting on Sat11/27/23 at 1309, Until Sat12/04/23 at 2254 Bisacodyl (Dulcolax) supp 10 mg 10 mg, Rectal, Q12H PRN Constipation, Starting on Sat11/28/23 at 0757, Until Sat12/04/23 at 2254 diphenhydrAMINE (Benadryl) inj 25 mg 25 mg, IV Push, Q6H PRN Other, nausea, Starting on Sat11/27/23 at 1514, Until Sat12/04/23 at 2254 2346 (Given - Provider: Joanna Tucker, EDYTA) hydrOXYzine HCl tab 25 mg 25 mg, Oral, DAILY PRN Anxiety, Starting on Sat11/27/23 at 1301, Until Sat12/04/23 at 2254 2100 (Given - Provider: Joanna Tucker, EDYTA) 2039 (Given - Provider: Joanna Tucker, EDYTA) hyoscyamine (Levsin) tab 0.125 mg 0.125 mg, Oral, Q4H PRN Other, Bladder Spasms, Starting on Sat11/27/23 at 1305, Until Sat12/04/23 at 2254, Post-op Lidocaine urethral/mucosal 2 % gel Topical, Q4H PRN, Starting on Sat11/27/23 at 1305, Until Sat12/04/23 at 2254, Apply to tip of penis/urethral meatus as needed for catheter pain, Post-op LORazepam (Ativan) tab 0.25 mg 0.25 mg, Oral, Q8H PRN Severe anxiety, Starting on Sat12/02/23 at 1416, Until Sat12/04/23 at 2254 meclizine (Antivert) tab 25 mg 25 mg, Oral, TID PRN Dizziness, Starting on Sat12/02/23 at 1420, Until Sat12/04/23 at 2254 melatonin tab 3 mg 3 mg, Oral, HS PRN Insomnia, Sleep, Starting on Sat11/27/23 at 1305, Until Sat12/04/23 at 2254, Post-op 2100 (Given - Provider: Joanna Tucker, EDYTA) 2039 (Given - Provider: Joanna Tucker RN) Menthol (Madison) cough drop 1 Lozenge 1 Lozenge, Oral, Q2H PRN Sore throat, Starting on Sat11/27/23 at 1305, Until Sat12/04/23 at 2254, Post-op Metaxalone (Skelaxin) tab 800 mg 800 mg, Oral, TID PRN Muscle spasms, Starting on Sat11/27/23 at 1303, Until Sat12/04/23 at 2254 metoclopramide (Reglan) inj 10 mg(Linked Group 1) 10 mg, IV Push, Q6H PRN If unable to take by mouth for vomiting, Starting on Sat11/27/23 at 1305, Until Sat12/04/23 at 2254, Use as second line therapy if nausea and/or vomiting unrelieved with ondansetron. May use if patient unable to take oral metoclopramide., Post-op 2345 (Given - Provider: Joanna Tucker RN) metoclopramide (Reglan) tab 10 mg(Linked Group 1) 10 mg, Oral, Q6H PRN Vomiting, Starting on Sat11/27/23 at 1305, Until Sat12/04/23 at 2254, Use as second line therapy if nausea and/or vomiting unrelieved with ondansetron., Post-op 2345 (See Alternative - Provider: Joanna Tucker RN) naloxone (Narcan) 0.4 MG/ML inj 0.08 mg 0.08 mg, IV Push, PRN Other, If patient is over sedated or Respiratory Rate less than 8, Starting on Sat11/27/23 at 1306, Until Sat12/04/23 at 2254, Call provider if patient is over sedated or Respiratory Rate is less than 8, Post-op ondansetron (Zofran) inj 4 mg(Linked Group 2) 4 mg, IV Push, Q6H PRN May use for nausea or vomiting if patient unable to take oral ondansetron, Starting on Sat11/27/23 at 1305, Until Sat12/04/23 at 2254, Post-op 1415 (Given - Provider: Hernandez Nick RN)1913 (Given - Provider: Hernandez Nick RN) 114 (Given - Provider: Hernandez Nick, RN) ondansetron ODT (Zofran) tab 4 mg(Linked Group 2) 4 mg, On Tongue, Q6H PRN Nausea, Starting on Sat11/27/23 at 1305, Until Sat12/04/23 at 2254, Post-op 1415 (See Alternative - Provider: Hernandez Nick RN)1913 (See Alternative - Provider: Hernandez Nick RN) 114 (See Alternative - Provider: Hernandez Nick RN) oxybutynin (Ditropan) tab 5 mg 5 mg, Oral, Q8H PRN Other, Bladder Spasms, Starting on Sat11/27/23 at 1305, Until Sat12/04/23 at 2254, Post-op oxyCODONE (Oxy IR) tab 5 mg 5 mg, Oral, Q4H PRN Pain, Moderate, Starting on Sat11/27/23 at 1306, Until Sat12/04/23 at 2254, Hold for somnolence or respiratory rate less than 10, Post-op phenol (chlorASEPTIC) spray 3 [place] 3 [place], Oral, Q4H PRN Dry Mouth, Starting on Sat12/02/23 at 1417, Until Sat12/04/23 at 2254, See nursing care plan , Post-op Simethicone (Mylicon) chew tab 80 mg 80 mg, Oral, Q6H PRN Gas, Indigestion, Starting on Sat11/27/23 at 1305, Until Sat12/04/23 at 2254, Tablets need to be chewed before swallowing!, Post-op Linked Groups Order Group 1: metoclopramide (Reglan) tab 10 mgJump to med 10 mg, Oral, Q6H PRN Vomiting, Starting on Sat11/27/23 at 1305, Until Sat12/04/23 at 2254, Use as second line therapy if nausea and/or vomiting unrelieved with ondansetron., Post-op Or metoclopramide (Reglan) inj 10 mgJump to med 10 mg, IV Push, Q6H PRN If unable to take by mouth for vomiting, Starting on Sat11/27/23 at 1305, Until Sat12/04/23 at 2254, Use as second line therapy if nausea and/or vomiting unrelieved with ondansetron. May use if patient unable to take oral metoclopramide., Post-op Group 2: ondansetron ODT (Zofran) tab 4 mgJump to med 4 mg, On Tongue, Q6H PRN Nausea, Starting on Sat11/27/23 at 1305, Until Sat12/04/23 at 2254, Post-op Or ondansetron (Zofran) inj 4 mgJump to med 4 mg, IV Push, Q6H PRN May use for nausea or vomiting if patient unable to take oral ondansetron, Starting on Sat11/27/23 at 1305, Until Sat12/04/23 at 2254, Post-op documented in this encounter Advance Directives Documents on File Type Date Recorded Patient Tooling Inspector Expl anation Advance Directives and Living Will [...] Agen t (per Health Care Power of Apple Turner document) Care Teams Box Truck Driver Relationship Specialty Start Date End Date Beny Campbell DO [address] [id number] PCP - General Family Medicine 06/02/18 documented as of this encounter
--- OUTSIDE RECORDS SUMMARY | 2023-12-07 22:21 | External Medical Summary ---
Author Name Unknown Address Unknown Organization K1F:LABORATORY [facility] - [address] [place] [address] Laboratory Report Ordering Provider Test Date Status LUCIA GRANT 12/03/2023 04:37:00 Final Observation Date Value Abnormality Reference (Units ) Status BUN 12/03/2023 04:37:00 24 Above high normal 6-20 (mg/dL) Final Creatinine 12/03/2023 04:37:00 1.2 0.6-1.2 (mg/dL) Final Glomerular filtration rate/1.73 sq M.predicted [Volume Rate/Area] in Serum, Plasma or Blood by Creatinine-based formula (CKD-EPI) 12/03/2023 04:37:00 60 >=60 (mL/min) Final eGFR is calculated based on the CKD-EPI 2020 equation Sodium 12/03/2023 04:37:00 138 135-146 (m mol/L) Final Potassium 12/03/2023 04:37:00 3.4 Below low normal 3.5 -5.1 (mmol/L) Final Cl 12/03/2023 04:37:00 101 98-107 (mm ol/L) Final CO2 12/03/2023 04:37:00 26 22-32 (mmo l/L) Final Anion gap 12/03/2023 04:37:00 11 7-15 (mmol /L) Final Glucose 12/03/2023 04:37:00 105 70-120 (mg /dL) Final Calcium 12/03/2023 04:37:00 8.2 Below low normal 8.4 -10.2 (mg/dL) Final Performing Location LABORATORY [facility] - [address] [place] [address]
--- OUTSIDE RECORDS SUMMARY | 2023-12-07 22:21 | External Medical Summary ---
Author Name Unknown Address Unknown Organization K1F:[facility] [address] [place] [address] Laboratory Report Ordering Provider Test Date Status LUCIA GRANT 12/04/2023 04:46:00 Final Observation Date Value Abnormality Reference (Units ) Status SYNC LEUKOCYTES IN BLOOD BY AUTOMATED COUNT 12/04/2023 04:46:00 9.75 4.00-10.80 (K/uL) Final Segs 12/04/2023 04:46:00 71.5 40.0-75.0 (%) Final Lymphs % 12/04/2023 04:46:00 12.8 Below low normal 18.0-42.0 (%) Final Monos 12/04/2023 04:46:00 11.8 Above high normal 1.0-11.0 (%) Final Eosinophils 12/04/2023 04:46:00 1.9 0.0-6.0 (%) Final Basos 12/04/2023 04:46:00 0.5 0.0-2.0 (%) Final Immature Granulocyte, Percent 12/04/2023 04:46:00 1.5 0.0-2.0 (%) Final Absolute Segs 12/04/2023 04:46:00 6.96 1.80-7.70 (K/uL) Final Lymphs, absolute 12/04/2023 04:46:00 1.25 1.00-4.80 (K/ul) Final Monos, Abs 12/04/2023 04:46:00 1.15 Above high normal 0.00-1.10 (K/uL) Final Eos, Abs 12/04/2023 04:46:00 0.19 0.00-0.70 (K/uL) Final Basos, Abs 12/04/2023 04:46:00 0.05 0.00-0.20 (K/uL) Final Immature Granulocytes, Number 12/04/2023 04:46:00 0.15 0.00-0.20 (K/uL) Final Performing Location LABORATORY [facility] - [address] [place], [place] [address]am[place] Jones. [place] [address]
--- OUTSIDE RECORDS SUMMARY | 2023-12-07 22:21 | External Medical Summary ---
Author Name Unknown Address Unknown Organization K1F:LABORATORY [facility] - [address] [facility] [place] [address] Laboratory Report Ordering Provider Test Date Status LUCIA GRANT 12/02/2023 05:10:00 Final Observation Date Value Abnormality Reference (Units ) Status SYNC LEUKOCYTES IN BLOOD BY AUTOMATED COUNT 12/02/2023 05:10:00 10.91 Above high normal 4.00-10.80 (K/uL) Final Segs 12/02/2023 05:10:00 77.8 Above high normal 40.0-75.0 (%) Final Lymphs % 12/02/2023 05:10:00 8.6 Below low normal 18.0-42.0 (%) Final Monos 12/02/2023 05:10:00 10.9 1.0-11.0 (%) Final Eosinophils 12/02/2023 05:10:00 1.5 0.0-6.0 (%) Final Basos 12/02/2023 05:10:00 0.4 0.0-2.0 (%) Final Immature Granulocyte, Percent 12/02/2023 05:10:00 0.8 0.0-2.0 (%) Final Absolute Segs 12/02/2023 05:10:00 8.49 Above high normal 1.80-7.70 (K/uL) Final Lymphs, absolute 12/02/2023 05:10:00 0.94 Below low normal 1.00-4.80 (K/ul) Final Monos, Abs 12/02/2023 05:10:00 1.19 Above high normal 0.00-1.10 (K/uL) Final Eos, Abs 12/02/2023 05:10:00 0.16 0.00-0.70 (K/uL) Final Basos, Abs 12/02/2023 05:10:00 0.04 0.00-0.20 (K/uL) Final Immature Granulocytes, Number 12/02/2023 05:10:00 0.09 0.00-0.20 (K/uL) Final Performing Location LABORATORY [facility] - [facility] [address]. [place] [address]
--- OUTSIDE RECORDS SUMMARY | 2023-12-07 22:21 | External Medical Summary ---
Author Name Unknown Address Unknown Organization K1F:LABORATORY [facility] - [address] [facility] [place] [address] Laboratory Report Ordering Provider Test Date Status LUCIA GRANT 11/30/2023 04:35:00 Final Observation Date Value Abnormality Reference (Units ) Status SYNC LEUKOCYTES IN BLOOD BY AUTOMATED COUNT 11/30/2023 04:35:00 15.87 Above high normal 4.00-10.80 (K/uL) Final Segs 11/30/2023 04:35:00 84.8 Above high normal 40.0-75.0 (%) Final Lymphs % 11/30/2023 04:35:00 5.6 Below low normal 18.0-42.0 (%) Final Monos 11/30/2023 04:35:00 8.6 1.0-11.0 (%) Final Eosinophils 11/30/2023 04:35:00 0.1 0.0-6.0 (%) Final Basos 11/30/2023 04:35:00 0.3 0.0-2.0 (%) Final Immature Granulocyte, Percent 11/30/2023 04:35:00 0.6 0.0-2.0 (%) Final Absolute Segs 11/30/2023 04:35:00 13.45 Above high normal 1.80-7.70 (K/uL) Final Lymphs, absolute 11/30/2023 04:35:00 0.89 Below low normal 1.00-4.80 (K/ul) Final Monos, Abs 11/30/2023 04:35:00 1.37 Above high normal 0.00-1.10 (K/uL) Final Eos, Abs 11/30/2023 04:35:00 0.02 0.00-0.70 (K/uL) Final Basos, Abs 11/30/2023 04:35:00 0.05 0.00-0.20 (K/uL) Final Immature Granulocytes, Number 11/30/2023 04:35:00 0.09 0.00-0.20 (K/uL) Final Performing Location LABORATORY [facility] - [facility] [address]. [place] [address]
--- OUTSIDE RECORDS SUMMARY | 2023-12-07 22:21 | External Medical Summary | Summary of Care ---
Author Name Unknown Organization [facility] Address [address] [facility] [address] Phone [phone] Care Team Providers Care Engineering Technician Name Role Phone Adrian Henrik Brandgabbi Primary Care Provider Reason for Visit * Reason Onset Date Comments Medication Refill 09/03/2023 Encounter Details Date Type Department Care Team (Late st Contact Info) Description 09/03/2023 Telephone OR [facility], Operating Room [facility] [address] [place] [address] Roberto Edwards MD [address] [facility] [place] [address] [place] [address] Medication Refill Allergies Active Allergy Reactions Criticality Noted Date [...] Budesonide 32 MCG/ACT Nasal Suspension Administer 1 [place] into nostril in the morning. 0 Suspended Emgality 120 MG/ML Subcutaneous Solution Auto-injector (Galcanezumab-gnlm) Inject 120 mg (1mL) under skin as [...] Additional Information Patient not taking.Reported on 11/27/2023 documented as of this encounter (statuses as [...] mRNA, LNP-s, No Pre serve, 2-Dose Series ([employer]) 07/17/2021,11/22/2020,10/26/2020 Pneumococcal Conjugate Vacc, 13 Valent (Prevnar) [...] year ago Alcohol Use Standard Drinks/Week Comments Yes 0 (1 standard drink = 0.6 oz pur e alcohol) rarely PHQ-2 Answer Date Recorded PHQ Adult Total [...] on file documented as of this encounter Miscellaneous Notes * Telephone Encounter - Clementina Fam RN - 09/03/2023 8:34 AM EST Called [facility] this am for surgery follow up. states they were able to product picker 3prescriptions from [employer] last night but script for Finasteride was not at the pharmacy. Please advise. Thanks! documented in this encounter Plan of Treatment Upcoming Encounters Date Type Department Care Team (Late st Contact Info) Description 12/06/2023 10:00 AM EDT Nurse Only Urology Woody Serrano [address] [place] [address] [place] [address] Woody Nurse Urology EDYTA Dior [address] [place] [address] [place] [address] 12/09/2023 3:15 PM EDT Office Visit Urology, [facility] [address] [place] [address] Roberto Edwards MD [address] [place] [address] [place] [address] 12/12/2023 1:00 PM EDT Telemedicine Psychiatry, [address] [place] [address] Princess Kwon MD [address] [facility] [place] [address] 01/22/2024 8:00 AM EDT Hospital Encounter ENDO [facility], Endoscopy Room [facility] [address] [place], [place] [phone] Delfina Butcher, DO [address] [place], [place] [address] 01/22/2024 8:00 AM EDT - 01/22/2024 9:00 AM EDT Surgery ENDO [facility], Endoscopy Room [facility] [address] [place], [place] [phone] Delfina Butcher, DO [address] [place] [address] COLONOSCOPY FLEXIBLE PROXIMAL DIAGNOSTIC 05/08/2024 1:30 PM EDT Office Visit Orthopaedics Spine Surgery, [facility] [address] [place] [address] Praneeth Elizalde MD [address] [place] [address] [place] [address] 05/08/2024 2:20 PM EDT Office Visit [facility] [address] [place] [address] Rema Carpenter CRNP [address] [place] [address] 11/23/2024 9:00 AM EDT Office Visit [facility] [address] [place] [address] Henrik Campbell DO [address] [place] [address] Scheduled Procedures Name Priority Associated Diagnoses Date/Ti [...] 07/23/2018, Additional history exists HbA1c 11/05/2024 11/06/2023, 07/2 03/2023, 05/28/2022, Additional history exists GFR 12/02/2024 12/03/2023, [...] this encounter Medical Devices Implanted Type Area Installer Inspector Final Device Identifier Shelf Expiration Date Model / Serial / Lot Lens Intraoc 19.5 - [id number] - [id number] Implanted:Qty: 1 on 12/07/2021 by Eulogio Barrios MD at OR [facility] Left: Eye [employer]OM[employer] 07/25/2026 [id number] / [id number] / [id number] Lens Intraoc 19.5 - [id number] - [id number] Implanted:Qty: 1 on 12/19/2021 by Eulogio Barrios MD at OR [facility] Right: Eye BA[employer]CH [employer] LOMB 07/25/2026 [id number] / [id number] / [id number] documented as of this encounter Advance Directives Documents on File Type Date Recorded Patient Geology Instructor Expl anation Advance Directives and Living Will [...] Advance Directives occurred with: Patient Care Teams Engineering Technician Relationship Specialty Start Date End Date Henrik Campbell DO [address] [place] [address] PCP - General Family Medicine 06/02/18 documented as of this encounter
--- OUTSIDE RECORDS SUMMARY | 2023-12-07 22:21 | External Medical Summary ---
Author Name Unknown Address Unknown Organization K1F:LABORATORY [facility] - [address] [place] [address] Laboratory Report Ordering Provider Test Date Status LUCIA GRANT 12/04/2023 04:46:00 Final Observation Date Value Abnormality Reference (Units ) Status BUN 12/04/2023 04:46:00 19 6-20 (mg/dL) Final Creatinine 12/04/2023 04:46:00 1.2 0.6-1.2 (mg/dL) Final Glomerular filtration rate/1.73 sq M.predicted [Volume Rate/Area] in Serum, Plasma or Blood by Creatinine-based formula (CKD-EPI) 12/04/2023 04:46:00 60 >=60 (mL/min) Final eGFR is calculated based on the CKD-EPI 2020 equation Sodium 12/04/2023 04:46:00 137 135-146 (m mol/L) Final Potassium 12/04/2023 04:46:00 3.6 3.5-5.1 (m mol/L) Final Cl 12/04/2023 04:46:00 102 98-107 (mm ol/L) Final CO2 12/04/2023 04:46:00 25 22-32 (mmo l/L) Final Anion gap 12/04/2023 04:46:00 10 7-15 (mmol /L) Final Glucose 12/04/2023 04:46:00 111 70-120 (mg /dL) Final Calcium 12/04/2023 04:46:00 8.0 Below low normal 8.4 -10.2 (mg/dL) Final Performing Location LABORATORY [facility] - [address] [place] [address]
--- OUTSIDE RECORDS SUMMARY | 2023-12-07 22:21 | External Medical Summary ---
Author Name Unknown Address Unknown Organization K1F:LABORATORY [facility] - [address] [facility] [place] [address] Laboratory Report Ordering Provider Test Date Status LUCIA GRANT 12/03/2023 04:37:00 Final Observation Date Value Abnormality Reference (Units ) Status SYNC LEUKOCYTES IN BLOOD BY AUTOMATED COUNT 12/03/2023 04:37:00 8.60 4.00-10.80 (K/uL) Final Segs 12/03/2023 04:37:00 72.6 40.0-75.0 (%) Final Lymphs % 12/03/2023 04:37:00 11.5 Below low normal 18.0-42.0 (%) Final Monos 12/03/2023 04:37:00 13.4 Above high normal 1.0-11.0 (%) Final Eosinophils 12/03/2023 04:37:00 1.0 0.0-6.0 (%) Final Basos 12/03/2023 04:37:00 0.6 0.0-2.0 (%) Final Immature Granulocyte, Percent 12/03/2023 04:37:00 0.9 0.0-2.0 (%) Final Absolute Segs 12/03/2023 04:37:00 6.24 1.80-7.70 (K/uL) Final Lymphs, absolute 12/03/2023 04:37:00 0.99 Below low normal 1.00-4.80 (K/ul) Final Monos, Abs 12/03/2023 04:37:00 1.15 Above high normal 0.00-1.10 (K/uL) Final Eos, Abs 12/03/2023 04:37:00 0.09 0.00-0.70 (K/uL) Final Basos, Abs 12/03/2023 04:37:00 0.05 0.00-0.20 (K/uL) Final Immature Granulocytes, Number 12/03/2023 04:37:00 0.08 0.00-0.20 (K/uL) Final Performing Location LABORATORY [facility] - [facility] [place] [address]
--- OUTSIDE RECORDS SUMMARY | 2023-12-07 22:21 | External Medical Summary ---
Author Name Unknown Address Unknown Organization K1F:LABORATORY [facility] - [address] [facility] [place] [address] Laboratory Report Ordering Provider Test Date Status LUCIA GRANT 11/29/2023 05:16:00 Final Observation Date Value Abnormality Reference (Units ) Status SYNC LEUKOCYTES IN BLOOD BY AUTOMATED COUNT 11/29/2023 05:16:00 14.83 Above high normal 4.00-10.80 (K/uL) Final Segs 11/29/2023 05:16:00 85.5 Above high normal 40.0-75.0 (%) Final Lymphs % 11/29/2023 05:16:00 5.6 Below low normal 18.0-42.0 (%) Final Monos 11/29/2023 05:16:00 8.0 1.0-11.0 (%) Final Eosinophils 11/29/2023 05:16:00 0.1 0.0-6.0 (%) Final Basos 11/29/2023 05:16:00 0.2 0.0-2.0 (%) Final Immature Granulocyte, Percent 11/29/2023 05:16:00 0.6 0.0-2.0 (%) Final Absolute Segs 11/29/2023 05:16:00 12.68 Above high normal 1.80-7.70 (K/uL) Final Lymphs, absolute 11/29/2023 05:16:00 0.83 Below low normal 1.00-4.80 (K/ul) Final Monos, Abs 11/29/2023 05:16:00 1.19 Above high normal 0.00-1.10 (K/uL) Final Eos, Abs 11/29/2023 05:16:00 0.01 0.00-0.70 (K/uL) Final Basos, Abs 11/29/2023 05:16:00 0.03 0.00-0.20 (K/uL) Final Immature Granulocytes, Number 11/29/2023 05:16:00 0.09 0.00-0.20 (K/uL) Final Performing Location LABORATORY [facility] - [facility] [address]. [place] [address]
--- OUTSIDE RECORDS SUMMARY | 2023-12-07 22:22 | External Medical Summary | Summary of Care ---
Author Name Unknown Organization [facility] Address [address] [facility] [place] [address] Phone [phone] Care Team Providers Care Agribusiness Professor Name Role Phone Adrian Henrik Diaz DO Primary Care Provider Encounter Details Date Type Department Care Team (Late st Contact Info) Description 11/13/2023 1:10 PM EDT Telemedicine Urology Woody Serrano [address] [place] [address] [place] [address] Yumiko Zabala PA-C [address] [place] [address] [place] [address] 7, Telemed [facility] Urology Ex Rm [address] [place] [address] Urothelial carcinoma of kidney, right (HCC)*; Disorder of kidney and ureter, unspecified; Hematuria, gross Allergies Active Allergy Reactions Criticality Noted Date Comments Azelastine Unknown 02/01/2021 Onabotulinumtoxina Other (Please comment) High 01/20/2021 Swallowing difficulty after injection documented as of this encounter (statuses as of 11/13/2023) Medications Medication Sig Dispensed Refills Start Date [...] With spacer 1 Inhaler 1 07/30/2018 Active zoster vac recomb adjuvanted (SHINGRIX) 50 MCG/0.5ML injectionIndications :Need for vaccination for zoster Inject 0.5 mL into a large muscle now and repeat dose in 60 to 180 days 1 Each 1 05/09/2020 Active Additional Information Patient not taking.Reported on 08/07/2023 [...] Budesonide 32 MCG/ACT Nasal Suspension Administer 1 [place] into nostril in the morning. 0 Active Emgality 120 MG/ML Subcutaneous Solution Auto-injector (Galcanezumab-[facility]) Inject 120 mg (1mL) under skin as directed once a month. 1 mL 11 08/30/2022 Active Additional Information Patient not taking.Reported on 08/09/2023 oxyCODONE HCl 5 MG Oral Capsule (Oxy IR) Take 1 Capsule by mouth every 4 hours as needed. 0 Active Metaxalone 800 MG Oral Tablet Take one tablet by mouth at bedtime and 1/2 to one tablet up to an additional two times daily as needed for neck and head pain 90 Tablet 11 12/14/2022 Active Additional Information Patient not taking.Reported on 08/27/2023 Mirtazapine 15 MG Oral Tablet (Remeron) Take 1 Tablet by mouth at bedtime. 30 Tablet 5 05/30/2023 Active Rimegepant Sulfate 75 MG Oral Tablet Disintegrating 75 mg. 0 05/14/2023 Active Ondansetron HCl 4 MG Oral Tablet (Zofran) 1 Tablet. 0 10/20/2022 Acti ve Propranolol HCl 10 MG Oral Tablet (Inderal) [...] as needed for Anxiety. 0 07/03/2023 Active Sulfamethoxazole-Tri methoprim 800-160 MG Oral Tablet (Bactrim DS) Take 1 Tablet by mouth in the morning and 1 Tablet before bedtime. 10 Tablet 0 09/02/2023 Active Additional Information Patient not taking.Reported on 11/13/2023 Phenazopyridine HCl 200 MG Oral Tablet (Pyridium) Take 1 Tablet by mouth 3 times a day as needed for Other (bladder spasms). After meals. 15 Tablet 0 09/02/2023 Active Finasteride 5 MG Oral Tablet (Proscar)Indications [...] the morning. 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 06/11/2022 Sciatica 01/17/2017 05/28/2017 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 05/28/2017 Nocturia 06/20/2005 05/28/2017 ringworm-left cheek 05/11/2002 05/28/20 17 lesion under left arm 05/11/20022016 Chronic sinusitis 05/28/2017 documented as of this encounter (statuses as of 11/13/2023) Immunizations Name Administration Dates Next Due COVID-19 mRNA, LNP-s, No Pre serve, 2-Dose Series ([employer]) 07/17/2021,11/22/2020,10/26/2020 Pneumococcal Conjugate Vacc, 13 Valent (Prevnar) [...] on file documented as of this encounter Nursing Notes * Rema Swan LPN - 11/13/2023 2:13 PM EDT Patient is scheduled for a Nephrectomy at [facility] on 11/27/23 Patient has been instructed to schedule pre-operative testing 2-4 weeks before surgery Patient has been instructed to hold the following blood thinners 7 days before surgery n/a. Patient has been instructed to begin proven recovery 5 days before, continue for 5 days after surgery. Patient has been instructed to refrain from drinking any alcoholic beverages 48 hrs before surgery. Patient has been instructed to start a clear liquid diet the day before surgery. Patient has been instructed to do a fleets enema the evening before surgery. Patient has been instructed to drink 1/2 bottle of magnesium citrate in the morning the day before surgery and the remaining half the evening before surgery. Patient has been instructed to having nothing to eat or drink after midnight the night before surgery. Patient has been instructed to use Chlorhexidine soap the night before surgery and the morning of surgery. * Rema Swan LPN - 11/13/2023 1:23 PM EDT H&P for upcoming nephrectomy documented in this encounter Plan of Treatment Upcoming Encounters Date Type Department Care Team (Late st Contact Info) Description 11/27/2023 8:10 AM EDT Hospital Encounter OR [facility], Operating Room, [facility] - 4th Floor [address] [place] [address] Roberto Edwards MD [address] [place] [address] [place] [address] 11/27/2023 8:10 AM EDT - 11/27/2023 12:04 PM EDT Surgery OR [facility], Operating Room, [facility] - 4th Floor [address] [place] [address] Roberto Edwards MD [address] [place] [address] [place] [address] LAPAROSCOPIC NEPHRECTOMY TOTAL URETERECTOMY 12/06/2023 10:00 AM EDT Nurse Only Urology Woody Serrano [address] [place] [address] [place] [address] Nurse Woody Urology EDYTA Dior [address] [place] [address] [place] [address] 12/09/2023 3:15 PM EDT Office Visit Urology, [facility] [address] [place] [address] Roberto Edwards MD [address] [place] [address] [place] [address] 12/12/2023 1:00 PM EDT Telemedicine Psychiatry, [place] [address] [place] [address] Princess Kwon MD [address] [place] [address] 01/22/2024 8:00 AM EDT Hospital Encounter ENDO [facility], Endoscopy Room [facility] [address] [place] [phone] Delfina Butcher, DO [address] [place] [address] 01/22/2024 8:00 AM EDT - 01/22/2024 9:00 AM EDT Surgery ENDO [facility], Endoscopy Room [facility] [address] [place] [phone] Delfina Butcher, DO [address] [place] [address] COLONOSCOPY FLEXIBLE PROXIMAL DIAGNOSTIC 05/08/2024 1:30 PM EDT Office Visit Orthopaedics Spine Surgery, [facility] [address] [place] [address] Praneeth Elizalde MD [address] [place] [address] [place] [address] 05/08/2024 2:20 PM EDT Office Visit Family Practice [facility] [address] [place] [address] Rema Carpenter CRNP [address] [place] [address] 11/23/2024 9:00 AM EDT Office Visit Family [facility] [address] [place] [address] Henrik Campbell DO [address] [place] [address] Scheduled Orders Name Type Priority Associated Diagnoses Orde r Schedule PT INR Lab Routine Urothelial carcinoma of kidney, right (HCC) Expected: 11/13/2023, Expires: 11/12/2024 TYPE AND SCREEN Lab Routine Urothelial carcinoma of kidney, right (HCC) Expected: 11/13/2023, Expires: 12/13/2024 ABO/RH Lab Routine Urothelial carcinoma of kidney, right (HCC) Expected: 11/13/2023, Expires: 12/13/2024 CULTURE, URINE, QUANTITATIVE Lab Routine Urothelial carcinoma of kidney, right (HCC) Disorder of kidney and ureter, unspecified Hematuria, gross Expected: 11/20/2023, Expires: 11/12/2024 Scheduled Procedures Name Priority Associated Diagnoses Date/Ti me LAPAROSCOPIC NEPHRECTOMY TOT AL URETERECTOMY Urothelial carcinoma of kidney, right (HCC) 11/27/2023 8:10 AM EDT COLONOSCOPY FLEXIBLE PROXIMA L DIAGNOSTIC Recall Evans's esophagus History of colon polyps 01/22/2024 8:00 AM EDT ESOPHAGOGASTRODUODENOSCOPY ( EGD), FLEXIBLE, TRANSORAL, DIAGNOSTIC Recall Evans's esophagus History of colon polyps 01/22/2024 8:00 AM EDT Health Maintenance Due Date Last Done Comments *SPIROMETRY ONCE FOR ASTHMA-ADULT 07/19/2022 COVID-19 Vaccine ( season) 2023 07/17/2021, 11/22/2020, 10/26/2020 Depression Screening 06/14/2023 06/14/2022 Evans's Esophagus Surveilance 08/03/2024 08/03/2021, 08/03/2021, 10/28/2020, Additional history exists COLONOSCOPY-EVERY 3 YRS AGES 18-100 08/03/2024 08/03/2021, 08/03/2021, 07/23/2018, Additional history exists GFR 11/05/2024 11/06/2023, 12/2022, 03/22/2023, Additional history exists HbA1c 11/05/2024 11/06/2023, 02/24, 05/28/2022, Additional history exists Albumin/Creatinine Ratio 11/05/2026 024, [...] this encounter Medical Devices Implanted Type Area Tire Buster Device Identifier Shelf Expiration Date Model / Serial / Lot Lens Intraoc 19.5 - [id number] - [id number] Implanted:Qty: 1 on 12/07/2021 by Eulogio Barrios MD at OR [facility] Left: Eye [employer]USCH [employer] LOMB 07/25/2026 [id number] / [id number] / [id number] Lens Intraoc 19.5 - [id number] - [id number] Implanted:Qty: 1 on 12/19/2021 by Eulogio Barrios MD at OR [facility] Right: Eye BAUSCH & LOMB 07/25/2026 [id number] / [id number] / [id number] documented as of this encounter Visit Diagnoses Diagnosis Urothelial carcinoma of kidney, right (HCC)- Primary Disorder of kidney and ureter, unspecified Hematuria, gross Gross hematuria Urothelial carcinoma of kidney, right (HCC) Evans's esophagus History of colon polyps Personal history of colonic polyps documented in this encounter Advance Directives Documents on File Type Date Recorded Patient Dorr Operator Expl anation Advance Directives and Living Will 04/22/2001 LIVING WILL Latest Code Status on File Code Status Date Activated Date Inactivated Comments Full Code 09/02/2023 1:54 PM 09/02/2023 10:24 PM This o rder reflects the patients wishes and were consensually agreed upon. Question Answer Comments Discussion of Advance Directives occurred with: Patient Code Status History Code Status Date Activated Date Inactivated Comments Full Code 09/02/2023 10:39 AM 09/02/2023 1:54 PM This o rder reflects the patients wishes and were consensually agreed upon. Question Answer Comments Discussion of Advance Directives occurred with: Patient Care Teams Agribusiness Professor Relationship Specialty Start Date End Date Henrik Campbell DO [address] [place] [address] [place] [address] PCP - General Family Medicine 06/02/18 documented as of this encounter
--- OUTSIDE RECORDS SUMMARY | 2023-12-07 22:22 | External Medical Summary | Summary of Care ---
Author Name Unknown Organization [facility] Address [address] [place] [address] Phone [phone] Care Team Providers Care Nitroglycerin Neutralizer Name Role Phone Henrik Campbell DO Primary Care Provider Reason for Referral * Evaluate & Treat - Unlimited Visits (Within 10 days (routine)) - Authorized Specialty Diagnoses / Procedures Referred By Thao t Referred To Contact Neuro/Ortho Surgery - Spine. / Neurological Surgery Diagnoses Spinal stenosis of lumbar region with neurogenic claudication Henrik Campbell DO [address] [place] [address] Referral ID Status Reason Start Date Expiration Date Visits Requested Visits Authorized [id number] Authorized Specialty Services Required 11/11/[phone] Question Answer Referral Priority Within 10 days (routine) Where should this appointment be scheduled? [facility] spine region: Back - Thoracic/Lumbar Do you have any recent complete loss of bladder or bowel function? No Reason for Visit * Reason Comments Return Visit Pt here for 6 mo ret urn. 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 without status migrainosus; Chronic tension-type headache, intractable; FAHAD (generalized anxiety disorder); Major depressive disorder, recurrent episode, moderate (HCC); Other atopic dermatitis; Dyslipidemia, goal LDL below 130; Spinal stenosis of lumbar region with neurogenic claudication; Urothelial carcinoma of kidney, right (HCC) Allergies Active Allergy Reactions Criticality Noted Date Comments Azelastine Unknown 02/01/2021 Onabotulinumtoxina Other (Please comment) High 01/20/2021 Swallowing difficulty after injection documented as of this encounter (statuses as of 11/14/2023) Medications Medication Sig Dispensed Refills Start Date [...] With spacer 1 Inhaler 1 8 Active zoster vac recomb adjuvanted (SHINGRIX) 50 MCG/0.5ML injectionIndicatio ns:Need for vaccination for zoster Inject 0.5 mL into a large muscle now and repeat dose in 60 to 180 days 1 Each 1 0 Active Additional Information Patient not taking.Reported on [...] Budesonide 32 MCG/ACT Nasal Suspension Administer 1 [place] into nostril in the morning. 0 Active Emgality 120 MG/ML Subcutaneous Solution Auto-injector (Galcanezumab-gnlm ) Inject 120 mg (1mL) under skin as directed once a month. 1 mL 11 3 Active Additional Information Patient not taking.Reported on [...] head pain 90 Tablet 11 3 Active Mirtazapine 15 MG Oral Tablet (Remeron) Take 1 Tablet by mouth at bedtime. 30 Tablet 5 3 Active Rimegepant Sulfate 75 MG Oral Tablet Disintegrating 75 mg. 0 3 Active Ondansetron HCl 4 MG Oral Tablet (Zofran) 1 Tablet. 0 3 Active Propranolol HCl 10 MG [...] as needed for Anxiety. 0 3 Active Sulfamethoxazole-T rimethoprim 800-160 MG Oral Tablet (Bactrim DS) Take 1 Tablet by mouth in the morning and 1 Tablet before bedtime. 10 Tablet 0 4 Active Additional Information Patient not taking.Reported on 11/13/2023 Phenazopyridine HCl 200 MG Oral Tablet (Pyridium) Take 1 Tablet by mouth 3 times a day as needed for Other (bladder spasms). After meals. 15 Tablet 0 4 Active Finasteride 5 MG Oral Tablet (Proscar)Indicatio [...] the morning. 30 Capsule 5 4 Active Indomethacin 50 MG Oral Capsule Take one capsule by mouth up to three times per day as needed for head and neck pain 90 Capsule 11 3 024 Discontinued Ketorolac Tromethamine 10 MG Oral Tablet (Toradol) 1 Tablet. 0 3 024 Discontinued oxyCODONE-Acetamin ophen 5-325 MG Oral Tablet (Percocet) Take 1 Tablet by mouth every 6 hours as needed for Pain, Severe. 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 06/11/2022 Sciatica 01/17/2017 05/28/2017 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 05/28/2017 Nocturia 06/20/2005 05/28/2017 ringworm-left cheek 05/11/2002 05/28/20 17 lesion under left arm 05/11/20022016 Chronic sinusitis 05/28/2017 documented as of this encounter (statuses as of 11/14/2023) Immunizations Name Administration Dates Next Due COVID-19 mRNA, LNP-s, No Pre serve, 2-Dose Series ([email or web address]) 07/17/2021,11/22/2020,10/26/2020 Pneumococcal Conjugate Vacc, 13 Valent (Prevnar) [...] Former Cigarettes 40 Smokeless Tobacco: Former Snuff Tobacco Cessation:Counseling Given: Not Answered Comments:quit 35 year ago Alcohol Use Standard [...] Sign Reading Time Taken Comments Blood Pressure 134/76 11/11/2023 1:06 PM EDT Pulse 73 11/11/2023 1:06 PM EDT Temperature 36.1 C (97 F) 11/11/2023 1:06 PM EDT Respiratory Rate 22 11/11/2023 1:06 PM EDT Oxygen Saturation 96% 11/11/2023 1:06 PM EDT Inhaled Oxygen Concentration - - Weight 111.3 kg (245 lb 7 oz) 11/11/2023 1:06 PM EDT Height - - Body Mass Index 35.22 09/02/2023 10:48 AM EST documented in this encounter Progress Notes * Henrik Campbell, - 11/11/2023 1:15 PM EDT Images from the original note were not included. 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 To affected area. Dyslipidemia, goal LDL below 130 - COMPREHENSIVE METABOLIC PANEL; Future - LIPID PANEL WITH DIRECT LDL IF TG IS HIGH; Future Spinal stenosis of lumbar region with neurogenic claudication Patient wants to seek surgical opinion regarding his back which has been worsening - specifically would like to discuss with a surgeon that can perform minimally invasive. - SPINE SURGERY REFERRAL OP History of Present Illness Josiah Gutiérrez is a 82 year old male that presents for Return Visit (Pt here for 6 mo return. ) Presents today in f/u Had brain MRI which was normal on the 29 of October Worsening back pain and stenosis symptoms Saw Dr Cox who wanted him to consider surgery But Dr Cox does open technique Physical Exam Vitals: 11/11/23 1306 Temp: 36.1 C (97 F) Pulse: 73 Resp: 22 SpO2: 96% BP: 134/76 Physical Exam Constitutional: Appearance: Normal appearance. HENT: Head: Normocephalic and atraumatic. Eyes: Extraocular Movements: Extraocular movements intact. Pupils: Pupils are equal, round, and reactive to light. Cardiovascular: Rate and Rhythm: Normal rate and regular rhythm. Pulmonary: Effort: Pulmonary effort is normal. Breath sounds: Normal breath sounds. Neurological: General: No focal deficit present. Mental Status: He is alert and oriented to person, place, and time. Psychiatric: Mood and Affect: Mood normal. Behavior: Behavior normal. Wrap-Up Follow-up: Return in about 6 months (around 05/13/2024). | Check-out note: Every other with Thiede Time: Total time today was 42 minutes excluding any time spent in the performance of separately billed services. documented in this encounter Plan of Treatment Upcoming Encounters Date Type Department Care Team (Late st Contact Info) Description 11/27/2023 8:10 AM EDT Hospital Encounter OR [facility], Operating Room, [facility] - 4th Floor [address] [place] [address] Roberto Edwards MD [address] [place] [address] [place] [address] 11/27/2023 8:10 AM EDT - 11/27/2023 12:04 PM EDT Surgery OR [facility], Operating Room, [facility] - 4th Floor [address] [place] [address] Roberto Edwards MD [address] [place] [address] [place] [address] LAPAROSCOPIC NEPHRECTOMY TOTAL URETERECTOMY 12/06/2023 10:00 AM EDT Nurse Only Urology Woody Serrano [address] [place] [address] [place] [address] Woody Nurse Urology EDYTA Dior [address] [place] [address] [place] [address] 12/09/2023 3:15 PM EDT Office Visit Urology, [facility] [address] [place] [address] Roberto Edwards MD [address] [place] [address] [place] [address] 12/12/2023 1:00 PM EDT Telemedicine Psychiatry, [facility] [address] [facility] [place] [address] Princess [facility] [address] [facility] [address] 01/22/2024 8:00 AM EDT Hospital Encounter ENDO [facility], Endoscopy Room [facility] [address] [place] [address] Delfina Butcher, DO [address] [place] [address] 01/22/2024 8:00 AM EDT - 01/22/2024 9:00 AM EDT Surgery ENDO [facility], Endoscopy Room [facility] [address] [place] [id number] Delfina Butcher, DO [address] [place] [address] COLONOSCOPY FLEXIBLE PROXIMAL DIAGNOSTIC 05/08/2024 1:30 PM EDT Office Visit Orthopaedics Spine Surgery, [facility] [address] [place] [address] Praneeth Elizalde MD [address] [place] [address] [place] [id number] 05/08/2024 2:20 PM EDT Office Visit [facility] [place] [address] [place] [address] Rema Carpenter CRNP [address] [place] [address] 11/23/2024 9:00 AM EDT Office Visit [facility] [place] [address] [place] [address] Henrik Campbell, [address] [place] [address] Scheduled Orders Name Type Priority Associated Diagnoses Orde r Schedule CBC WITH WBC DIFFERENTIAL Lab Routine Prediabetes HTN, goal below 140/90 Expected: 05/09/2024 (Approximate), Expires: 11/10/2024 COMPREHENSIVE METABOLIC PANEL Lab Routine Dyslipidemia, goal LDL below 130 Expected: 05/09/2024 (Approximate), Expires: 11/10/2024 HEMOGLOBIN A1C Lab Routine Prediabetes Expected: 05/09/2024 (Approximate), Expires: 11/10/2024 ALBUMIN / CREATININE RATIO, URINE Lab Routine Prediabetes Expected: 05/09/2024 (Approximate), Expires: 11/10/2024 LIPID PANEL WITH DIRECT LDL IF TG IS HIGH Lab Routine Dyslipidemia, goal LDL below 130 Expected: 05/09/2024 (Approximate), Expires: 11/10/2024 Scheduled Procedures Name Priority Associated Diagnoses Date/Ti me LAPAROSCOPIC NEPHRECTOMY TOT AL URETERECTOMY Urothelial carcinoma of kidney, right (HCC) 11/27/2023 8:10 AM EDT COLONOSCOPY FLEXIBLE PROXIMA L DIAGNOSTIC Recall Evans's esophagus History of colon polyps 01/22/2024 8:00 AM EDT ESOPHAGOGASTRODUODENOSCOPY ( EGD), FLEXIBLE, TRANSORAL, DIAGNOSTIC Recall Evans's esophagus History of colon polyps 01/22/2024 8:00 AM EDT Scheduled Referrals Name Type Priority Associated Diagnoses Orde r Schedule SPINE SURGERY REFERRAL OP Referral Within 10 days (routine) Spinal stenosis of lumbar region with neurogenic claudication Ordered: 11/11/2023 Health Maintenance Due Date Last Done Comments *SPIROMETRY ONCE FOR ASTHMA-ADULT 07/19/2022 COVID-19 Vaccine ( season) 2023 07/17/2021, 11/22/2020, 10/26/2020 Depression Screening 06/14/2023 06/14/2022 Evans's Esophagus Surveilance 08/03/2024 08/03/2021, 08/03/2021, 10/28/2020, Additional history exists COLONOSCOPY-EVERY 3 YRS AGES 18-100 08/03/2024 08/03/2021, 08/03/2021, 07/23/2018, Additional history exists GFR 11/05/2024 11/06/2023, 12/0 12/2022, 03/22/2023, Additional history exists HbA1c 11/05/2024 [...] this encounter Medical Devices Implanted Type Area Launch Check Out Device Identifier Shelf Expiration Date Model / Serial / Lot Lens Intraoc 19.5 - [id number] - [id number] Implanted:Qty: 1 on 12/07/2021 by Eulogio Barrios MD at OR [facility] Left: Eye [employer] 07/25/2026 [id number] / [id number] / [id number] Lens Intraoc 19.5 - [id number] - [id number] Implanted:Qty: 1 on 12/19/2021 by Eulogio Barrios MD at OR [facility] Right: Eye [employer]OM[employer] 07/25/2026 [id number] / [id number] / [id number] documented as of this encounter Visit Diagnoses Diagnosis Prediabetes- Primary Other abnormal glucose HTN, goal below 140/90 Unspecified essential hypertension 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 Evans's esophagus 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 of lumbar intervertebral disc without myelopathy Intractable chronic migraine without aura and without status migrainosus Chronic migraine without aura, with intractable migraine, so stated, without mention of status migrainosus Chronic tension-type headache, intractable Chronic tension type headache FAHAD (generalized anxiety disorder) Generalized anxiety disorder Major depressive disorder, recurrent episode, moderate (HCC) Major depressive disorder, recurrent episode, moderate Other atopic dermatitis Dyslipidemia, goal LDL below 130 Other and unspecified hyperlipidemia Spinal stenosis of lumbar region with neurogenic claudication Spinal stenosis, lumbar region, with neurogenic claudication Urothelial carcinoma of kidney, right (HCC) Urothelial carcinoma of kidney, right (HCC) Evans's esophagus History of colon polyps Personal history of colonic polyps documented in this encounter Advance Directives Documents on File Type Date Recorded Patient Traveling Sales Representative Expl anation Advance Directives and Living Will [...] Advance Directives occurred with: Patient Care Teams Nitroglycerin Neutralizer Relationship Specialty Start Date End Date Henrik Campbell DO [address] [place] [address] PCP - General Family Medicine 06/02/18 documented as of this encounter"
--- OUTSIDE RECORDS SUMMARY | 2023-12-07 22:22 | External Medical Summary ---
Author Name Unknown Address Unknown Organization K1F:LABORATORY [facility] - [address] [place] [address] Laboratory Report Ordering Provider Test Date Status LUCIA GRANT 11/27/2023 13:13:00 Final Observation Date Value Abnormality Reference (Units ) Status WBC, Total 11/27/2023 13:13:00 15.29 Above high normal 4.00-10.80 (K/uL) Final RBC 11/27/2023 13:13:00 4.79 4.50-5.25 (M/uL) Final Hemoglobin 11/27/2023 13:13:00 15.5 14.0-16.8 (g/dL) Final HCT 11/27/2023 13:13:00 45.1 40.0-48.4 (%) Final MCV 11/27/2023 13:13:00 94.2 82.0-99.5 (fL) Final MCH 11/27/2023 13:13:00 32.4 27.0-34.0 (pg) Final MCHC 11/27/2023 13:13:00 34.4 32.0-36.0 (g/dL) Final RDW 11/27/2023 13:13:00 12.7 11.5-15.5 (%) Final Platelets 11/27/2023 13:13:00 238 140-400 (K/uL) Final MPV 11/27/2023 13:13:00 9.2 6.6-11.1 (fL) Final Nucleated erythrocytes/100 leukocytes [Ratio] in Blood by Automated count 11/27/2023 13:13:00 0 <=0 (/100 WBCs) Final Performing Location LABORATORY [facility] - [address] [place] [address]
--- OUTSIDE RECORDS SUMMARY | 2023-12-07 22:22 | External Medical Summary ---
Author Name Unknown Address Unknown Organization K1F:LABORATORY [facility] - [address] [place] [address] Laboratory Report Ordering Provider Test Date Status LUICA GRANT 11/28/2023 04:33:00 Final Observation Date Value Abnormality Reference (Units ) Status SYNC LEUKOCYTES IN BLOOD BY AUTOMATED COUNT 11/28/2023 04:33:00 12.54 Above high normal 4.00-10.80 (K/uL) Final Segs 11/28/2023 04:33:00 81.0 Above high normal 40.0-75.0 (%) Final Lymphs % 11/28/2023 04:33:00 6.3 Below low normal 18.0-42.0 (%) Final Monos 11/28/2023 04:33:00 12.0 Above high normal 1.0-11.0 (%) Final Eosinophils 11/28/2023 04:33:00 0.0 0.0-6.0 (%) Final Basos 11/28/2023 04:33:00 0.2 0.0-2.0 (%) Final Immature Granulocyte, Percent 11/28/2023 04:33:00 0.5 0.0-2.0 (%) Final Absolute Segs 11/28/2023 04:33:00 10.15 Above high normal 1.80-7.70 (K/uL) Final Lymphs, absolute 11/28/2023 04:33:00 0.79 Below low normal 1.00-4.80 (K/ul) Final Monos, Abs 11/28/2023 04:33:00 1.51 Above high normal 0.00-1.10 (K/uL) Final Eos, Abs 11/28/2023 04:33:00 0.00 0.00-0.70 (K/uL) Final Basos, Abs 11/28/2023 04:33:00 0.03 0.00-0.20 (K/uL) Final Immature Granulocytes, Number 11/28/2023 04:33:00 0.06 0.00-0.20 (K/uL) Final Performing Location LABORATORY [facility] - [facility] [address] [place] [address]
--- OUTSIDE RECORDS SUMMARY | 2023-12-07 22:22 | External Medical Summary | Summary of Care ---
Author Name Unknown Organization [facility] Address [address] [facility] [place] [address] Phone [phone] Care Team Providers Care Material Expeditor Name Role Phone Campbell Henrik Brandgabbi Primary Care Provider Encounter Details Date Type Department Care Team (Late st Contact Info) Description 11/28/2023 Population Health External Data Unspecified Department Allergies Active Allergy Reactions Criticality Noted Date Comments Azelastine Unknown 02/01/2021 Onabotulinumtoxina Other (Please comment) High 01/20/2021 Swallowing difficulty after injection documented as of this encounter (statuses as of 11/28/2023) Medications Medication Sig Dispensed Refills Start Date [...] Budesonide 32 MCG/ACT Nasal Suspension Administer 1 [place] into nostril in the morning. 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 06/11/2022 Sciatica 01/17/2017 05/28/2017 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 05/28/2017 Nocturia 06/20/2005 05/28/2017 ringworm-left cheek 05/11/2002 05/28/20 17 lesion under left arm 05/11/20022016 Chronic sinusitis 05/28/2017 documented as of this encounter (statuses as of 11/28/2023) Immunizations Name Administration Dates Next Due COVID-19 mRNA, LNP-s, No Pre serve, 2-Dose Series ([employer]) 07/17/2021,11/22/2020,10/26/2020 Pneumococcal Conjugate Vacc, 13 Valent (Prevnar) [...] No 11/27/2023 documented as of this encounter Plan of Treatment Upcoming Encounters Date Type Department Care Team (Late st Contact Info) Description 12/06/2023 10:00 AM EDT Nurse Only Urology Woody Serrano [address] [place] [address] [place] [address] Woody Nurse Urology EDYTA Dior [address] [place] [address] [place] [address] 12/09/2023 3:15 PM EDT Office Visit Urology, [facility] [address] [place] [address] Roberto Edwards MD [address] [place] [address] [place] [address] 12/12/2023 1:00 PM EDT Telemedicine [facility] [address] [place] [address] Princess Kwon MD [address] [place] [address] 01/22/2024 8:00 AM EDT Hospital Encounter ENDO [facility], Endoscopy Room [facility] [address] [place] [address] Delfina Butcher, DO [address] [place] [address] 01/22/2024 8:00 AM EDT - 01/22/2024 9:00 AM EDT Surgery ENDO [facility], Endoscopy Room [facility] [address] [place] [phone] Delfina Butcher, DO [address] [place] [address] COLONOSCOPY FLEXIBLE PROXIMAL DIAGNOSTIC 05/08/2024 1:30 PM EDT Office Visit Orthopaedics Spine Surgery, [facility] [address] [place] [address] Praneeth Elizalde MD [address] [place] [address] [place] [address] 05/08/2024 2:20 PM EDT Office Visit [facility] [address] [facility] [place] [address] Rema Carpenter CRNP [address] [place] [address] 11/23/2024 9:00 AM EDT [facility] [place] [address] Henrik Campbell DO [address] [facility] [place] [address] Scheduled Procedures Name Priority Associated Diagnoses Date/Ti [...] 11/06/2023, 0703/2023, 05/28/2022, Additional history exists GFR 11/27/2024 11/28/2023, 04/0 10/2023, 11/06/2023, Additional history exists Albumin/Creatinine Ratio 11/05/20262 024, 03/22/2023, 02/14/2021 DTaP,Tdap,and Td Vaccines (3 [...] this encounter Medical Devices Implanted Type Area Stockfeed Miller Device Identifier Shelf Expiration Date Model / Serial / Lot Lens Intraoc 19.5 - [id number] - [id number] Implanted:Qty: 1 on 12/07/2021 by Eulogio Barrios MD at OR [facility] Left: Eye [employer] 07/25/2026 [id number] / [id number] / [id number] Lens Intraoc 19.5 - [id number] - [id number] Implanted:Qty: 1 on 12/19/2021 by Eulogio Barrios MD at OR [facility] Right: Eye [employer]OMB 07/25/2026 [id number] / [id number] / [id number] documented as of this encounter Advance Directives Documents on File Type Date Recorded Patient Processing Archivist Expl anation Advance Directives and Living Will [...] Advance Directives occurred with: Patient Care Teams Material Expeditor Relationship Specialty Start Date End Date Henrik Campbell DO [address] [place] [address] PCP - General Family Medicine 06/02/18 documented as of this encounter
--- OUTSIDE RECORDS SUMMARY | 2023-12-07 22:22 | External Medical Summary ---
Author Name Unknown Address Unknown Organization K1F:LABORATORY [facility] - [address] [place] [address] Laboratory Report Ordering Provider Test Date Status LUCIA GRANT 11/27/2023 13:13:00 Final Observation Date Value Abnormality Reference (Units ) Status BUN 11/27/2023 13:13:00 17 6-20 (mg/dL) Final Creatinine 11/27/2023 13:13:00 1.0 0.6-1.2 (mg/dL) Final Glomerular filtration rate/1.73 sq M.predicted [Volume Rate/Area] in Serum, Plasma or Blood by Creatinine-based formula (CKD-EPI) 11/27/2023 13:13:00 74 >=60 (mL/min) Final eGFR is calculated based on the CKD-EPI 2020 equation Sodium 11/27/2023 13:13:00 139 135-146 (m mol/L) Final Potassium 11/27/2023 13:13:00 4.4 3.5-5.1 (m mol/L) Final Cl 11/27/2023 13:13:00 102 98-107 (mm ol/L) Final CO2 11/27/2023 13:13:00 22 22-32 (mmo l/L) Final Anion gap 11/27/2023 13:13:00 15 7-15 (mmol /L) Final Glucose 11/27/2023 13:13:00 162 Above high normal 70 -120 (mg/dL) Final Calcium 11/27/2023 13:13:00 8.4 8.4-10.2 ( mg/dL) Final Performing Location LABORATORY [facility] - [address] [facility] [place] [address]
--- OUTSIDE RECORDS SUMMARY | 2023-12-07 22:22 | External Medical Summary ---
Author Name Unknown Address Unknown Organization K01:LABORATORY [facility] - [address] [place] [address] Laboratory Report Ordering Provider Test Date Status PORFIRIO LIM 11/20/2023 08:30:16 Final Observation Date Value Abnormality Reference (Units ) Status ABO 11/20/2023 08:30:16 A Final RH 11/20/2023 08:30:16 Positive Final Performing Location LABORATORY [facility] - [address] [place] [address]
--- OUTSIDE RECORDS SUMMARY | 2023-12-07 22:22 | External Medical Summary ---
Author Name Unknown Address Unknown Organization : Laboratory Report Ordering Provider Test Date Status LUCIA GRANT 11/27/2023 10:39:02 Final Observation Date Value Abnormality Reference (Units ) Status Glucose Point of Care 11/27/2023 10:39:02 167 Above high normal 70-120 (mg/dL) Final Performing Location
--- OUTSIDE RECORDS SUMMARY | 2023-12-07 22:22 | External Medical Summary ---
Author Name Unknown Address Unknown Organization K1F:LABORATORY [facility] - [address] [place] [address] Laboratory Report Ordering Provider Test Date Status LUCIA GRANT 11/29/2023 05:16:00 Final Observation Date Value Abnormality Reference (Units ) Status BUN 11/29/2023 05:16:00 21 Above high normal 6-20 (mg/dL) Final Creatinine 11/29/2023 05:16:00 1.3 Above high normal 0.6-1.2 (mg/dL) Final Glomerular filtration rate/1.73 sq M.predicted [Volume Rate/Area] in Serum, Plasma or Blood by Creatinine-based formula (CKD-EPI) 11/29/2023 05:16:00 53 Below low normal >=60 (mL/min) Final eGFR is calculated based on the CKD-EPI 2020 equation Sodium 11/29/2023 05:16:00 137 135-146 (m mol/L) Final Potassium 11/29/2023 05:16:00 3.9 3.5-5.1 (m mol/L) Final Cl 11/29/2023 05:16:00 99 98-107 (mm ol/L) Final CO2 11/29/2023 05:16:00 25 22-32 (mmo l/L) Final Anion gap 11/29/2023 05:16:00 13 7-15 (mmol /L) Final Glucose 11/29/2023 05:16:00 140 Above high normal 70 -120 (mg/dL) Final Calcium 11/29/2023 05:16:00 8.5 8.4-10.2 ( mg/dL) Final Performing Location LABORATORY [facility] - [address] [place] [address]
--- OUTSIDE RECORDS SUMMARY | 2023-12-07 22:22 | External Medical Summary | Summary of Care ---
Author Name Unknown Organization [facility] Address [address] [facility] [place] [address] Phone [phone] Care Team Providers Care Material Checker Name Role Phone Adrian Henrik Diaz DO Primary Care Provider Reason for Visit * Reason Comments Outpatient Testing Encounter Details Date Type Department Care Team (Late st Contact Info) Description 11/20/2023 8:50 AM EDT Laboratory Laboratory, [facility] [address] [place] [address] [facility] [address] [facility] [place] [address] Urothelial carcinoma of kidney, right (HCC); Disorder of kidney and ureter, unspecified; Hematuria, gross Allergies Active Allergy Reactions Criticality Noted Date Comments Azelastine Unknown 02/01/2021 Onabotulinumtoxina Other (Please comment) High 01/20/2021 Swallowing difficulty after injection documented as of this encounter (statuses as of 11/20/2023) Medications Medication Sig Dispensed Refills Start Date [...] Budesonide 32 MCG/ACT Nasal Suspension Administer 1 Eagle into nostril in the morning. 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 06/11/2022 Sciatica 01/17/2017 05/28/2017 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 05/28/2017 Nocturia 06/20/2005 05/28/2017 ringworm-left cheek 05/11/2002 05/28/20 17 lesion under left arm 05/11/20022016 Chronic sinusitis 05/28/2017 documented as of this encounter (statuses as of 11/20/2023) Immunizations Name Administration Dates Next Due COVID-19 [...] on file documented as of this encounter Plan of Treatment Upcoming Encounters Date Type Department Care Team (Late st Contact Info) Description 11/27/2023 8:10 AM EDT Hospital Encounter OR [facility], Operating Room, [facility] - 4th Floor [address] [place] [address] [place] [address] Roberto Edwards MD [address] [address] [place] [address] 11/27/2023 8:10 AM EDT - 11/27/2023 12:04 PM EDT Surgery OR [facility], Operating Room, [facility] - 4th Floor [address] [facility] [address] [address] Roberto Edwards MD [address] [place] [address] [place] [address] LAPAROSCOPIC NEPHRECTOMY TOTAL URETERECTOMY 12/06/2023 10:00 AM EDT Nurse Only Urology Woody Serrano [address] [place] [address] [place] [address] Woody Nurse Urologchandan Dior RN [address] [place] [address] [place] [address] 12/09/2023 3:15 PM EDT Office Visit Urology, [facility] [address] [place] [address] Roberto Edwards MD [address] [place] [address] [place] [address] 12/12/2023 1:00 PM EDT Telemedicine Psychiatry, [place] [address] [place] [address] Princess Kwon MD [address] [place] [address] 01/22/2024 8:00 AM EDT Hospital Encounter ENDO [facility], Endoscopy Room [facility] [address] [place] [phone] Delfina Butcher, DO [address] [place] [address] 01/22/2024 8:00 AM EDT - 01/22/2024 9:00 AM EDT Surgery ENDO [facility], Endoscopy Room [facility] [address] [place] [phone] Delfina Butcher, DO [address] [place] [address] COLONOSCOPY FLEXIBLE PROXIMAL DIAGNOSTIC 05/08/2024 1:30 PM EDT Office Visit Orthopaedics Spine Surgery, [facility] [address] [place], [place] [address] Praneeth Elizalde MD [address] [place] [address] [place] [address] 05/08/2024 2:20 PM EDT Office Visit [facility] [address] [place] [address] Rema Carpenter CRNP [address] [place] [address] 11/23/2024 9:00 AM EDT Office Visit [facility] [address] [place] [address] Henrik Campbell DO [address] [place] [address] Pending Results Name Type Priority Associated Diagnoses Date /Time PT INR Lab Routine Urothelial carcinoma of kidney, right (HCC) 11/20/2023 8:25 AM EDT TYPE AND SCREEN Lab Routine Urothelial carcinoma of kidney, right (HCC) 11/20/2023 8:25 AM EDT CULTURE, URINE, QUANTITATIVE Lab Routine Urothelial carcinoma of kidney, right (HCC) Disorder of kidney and ureter, unspecified Hematuria, gross 11/20/2023 8:30 AM EDT ABO/RH Lab Routine Urothelial carcinoma of kidney, right (HCC) 11/20/2023 8:30 AM EDT Scheduled Procedures Name Priority Associated Diagnoses Date/Ti [...] this encounter Medical Devices Implanted Type Area Customer Trainer Device Identifier Shelf Expiration Date Model / Serial / Lot Lens Intraoc 19.5 - [id number] - [id number] Implanted:Qty: 1 on 12/07/2021 by Eulogio Barrios MD at OR [facility] Left: Eye [employer]OM[employer] 07/25/2026 [id number] / [id number] / [id number] Lens Intraoc 19.5 - [id number] - [id number] Implanted:Qty: 1 on 12/19/2021 by Eulogio Barrios MD at OR [facility] Right: Eye BAUSCH & LOMB 07/25/2026 [id number] / [id number] / [id number] documented as of this encounter Visit Diagnoses Diagnosis Urothelial carcinoma of kidney, right (HCC) Disorder of kidney and ureter, unspecified Hematuria, gross Gross hematuria Urothelial carcinoma of kidney, right (HCC) Evans's esophagus History of colon polyps Personal history of colonic polyps documented in this encounter Advance Directives Documents on File Type Date Recorded Patient Service Member Expl anation Advance Directives and Living Will [...] Directives occurred with: Patient Care Teams Material Checker Relationship Specialty Start Date End Date Henrik Campbell DO [address] [place] [address] PCP - General Family Medicine 06/02/18 documented as of this encounter
--- OUTSIDE RECORDS SUMMARY | 2023-12-07 22:22 | External Medical Summary ---
Author Name Unknown Address Unknown Organization K01:LABORATORY [facility] - [address] [place] [id number] Laboratory Report Ordering Provider Test Date Status PORFIRIO LIM 11/20/2023 08:30:00 Final Observation Date Value Abnormality Reference (Units) Status Bacteria identified in Specimen by Culture 11/20/2023 08:30:00 No significant growth Final Test: Culture, Urine, Quanti tative
Specimen Source: Urine, Clean Catch
Specimen Type: Urine
Specimen Date: 11/20/2023 8:30 AM
Result Date: 11/21/2023 10:30 AM
Result Status: Final result
Resulting Lab: LABORATORY [facility]
[address]
[place] [id number]

CULTURE

No significant growth

null Performing Location LABORATORY [facility] - [address] [facility] [address]
--- OUTSIDE RECORDS SUMMARY | 2023-12-07 22:22 | External Medical Summary ---
Author Name Unknown Address Unknown Organization K1F:LABORATORY [facility] - [address] [facility] [place] [address] Laboratory Report Ordering Provider Test Date Status LUCIA GRANT 11/27/2023 13:13:00 Final Observation Date Value Abnormality Reference (Units ) Status SYNC LEUKOCYTES IN BLOOD BY AUTOMATED COUNT 11/27/2023 13:13:00 15.29 Above high normal 4.00-10.80 (K/uL) Final Segs 11/27/2023 13:13:00 89.3 Above high normal 40.0-75.0 (%) Final Lymphs % 11/27/2023 13:13:00 3.6 Below low normal 18.0-42.0 (%) Final Monos 11/27/2023 13:13:00 6.1 1.0-11.0 (%) Final Eosinophils 11/27/2023 13:13:00 0.1 0.0-6.0 (%) Final Basos 11/27/2023 13:13:00 0.4 0.0-2.0 (%) Final Immature Granulocyte, Percent 11/27/2023 13:13:00 0.5 0.0-2.0 (%) Final Absolute Segs 11/27/2023 13:13:00 13.65 Above high normal 1.80-7.70 (K/uL) Final Lymphs, absolute 11/27/2023 13:13:00 0.55 Below low normal 1.00-4.80 (K/ul) Final Monos, Abs 11/27/2023 13:13:00 0.94 0.00-1.10 (K/uL) Final Eos, Abs 11/27/2023 13:13:00 0.01 0.00-0.70 (K/uL) Final Basos, Abs 11/27/2023 13:13:00 0.06 0.00-0.20 (K/uL) Final Immature Granulocytes, Number 11/27/2023 13:13:00 0.08 0.00-0.20 (K/uL) Final Performing Location LABORATORY [facility] - [facility] [address] [place] [address]
--- OUTSIDE RECORDS SUMMARY | 2023-12-07 22:22 | External Medical Summary ---
Author Name Unknown Address Unknown Organization K1F:LABORATORY [facility] - [address] [place] [address] Ave. [place] [address] Laboratory Report Ordering Provider Test Date Status PORFIRIO LIM 11/20/2023 08:23:00 Final Is this for Pre-Surgical Claire ting (i.e.desired expiration date 30 days from collection)?\X09\
Yes

Has this patient been transfused or within the last 3 months?\X09\
No

What is the Location of the surgery?\X09\
[facility]

What is the Date of the surgery?\X09\
11/27/23
null Observation Date Value Abnormality Reference (Units ) Status ABO 11/20/2023 08:23:00 A Final RH 11/20/2023 08:23:00 Positive Final RED BLOOD CELL ANTIBODY SCREEN 11/20/2023 08:23:00 Negative Final SPECIMEN EXPIRATION DATE 11/20/2023 08:23:00 11/30/2023 23:59 Final Performing Location LABORATORY [facility] - [address] [place] [address]
--- OUTSIDE RECORDS SUMMARY | 2023-12-07 22:22 | External Medical Summary | Summary of Care ---
Author Name Unknown Organization [facility] Address [address] [facility] [place] [address] Phone [phone] Care Team Providers Care Retail Stocker Name Role Phone Henrik Campbell DO Primary Care Provider Encounter Details Date Type Department Care Team (Late st Contact Info) Description 11/13/2023 Telephone Family Practice [facility] [address] [place] [address] Henrik Campbell DO [address] [place] [address] Allergies Active Allergy Reactions Criticality Noted Date Comments Azelastine Unknown 02/01/2021 Onabotulinumtoxina Other (Please comment) High 01/20/2021 Swallowing difficulty after injection documented as of this encounter (statuses as of 11/15/2023) Medications Medication Sig Dispensed Refills Start Date [...] Budesonide 32 MCG/ACT Nasal Suspension Administer 1 [place] into nostril in the morning. 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 06/11/2022 Sciatica 01/17/2017 05/28/2017 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 05/28/2017 Nocturia 06/20/2005 05/28/2017 ringworm-left cheek 05/11/2002 05/28/20 17 lesion under left arm 05/11/20022016 Chronic sinusitis 05/28/2017 documented as of this encounter (statuses as of 11/15/2023) Immunizations Name Administration Dates Next Due COVID-19 mRNA, LNP-s, No Pre serve, 2-Dose Series ([employer]) 07/17/2021,11/22/2020,10/26/2020 Pneumococcal Conjugate Vacc, 13 Valent (Prevnar) [...] encounter Miscellaneous Notes * Telephone Encounter - Henrik Campbell DO - 11/14/2023 6:46 PM EDT Ok for clearance Addended note * Telephone Encounter - Jaleesa Tate LPN - 11/14/2023 4:27 PM EDT Defer to PCP upon his return to office * Telephone Encounter - Rema Swan LPN - 11/13/2023 2:16 PM EDT Patient is scheduled for neprhoureterectomy with Dr Roberto Edwards at [facility] on 11/27/23. He saw Dr Mendoza 11/11/23. Patient needs PCP clearance for surgery. Please advise if Saturday's appt can be addendedfor clearance, or if he needs a new appointment. Thank you, Yuly documented in this encounter Plan of Treatment Upcoming Encounters Date Type Department Care Team (Late st Contact Info) Description 11/27/2023 8:10 AM EDT Hospital Encounter OR [facility], Operating Room, [facility] - 4th Floor [address] [place] [address] Roberto Edwards MD [address] [place] [address] [place] [address] 11/27/2023 8:10 AM EDT - 11/27/2023 12:04 PM EDT Surgery OR [facility], Operating Room, [facility] - 4th Floor [address] [place] [place] [address] Roberto Edwards MD [address] [place] [address] [place] [address] LAPAROSCOPIC NEPHRECTOMY TOTAL URETERECTOMY 12/06/2023 10:00 AM EDT Nurse Only Urology [place] Serrano [address] [place] [address] [place] [address] Woody Nurse Urology Ovi RN [address] [place] [address] [place] [address] 12/09/2023 3:15 PM EDT Office Visit Urology, [facility] [address] [place] [address] Roberto Edwards MD [address] [place] [address] [place] [address] 12/12/2023 1:00 PM EDT Telemedicine [facility], [place] [address] [place] [address] Princess Kwon MD [address] [facility] [address] 01/22/2024 8:00 AM EDT Hospital Encounter ENDO [facility], Endoscopy Room [facility] [address] [place] [phone] Delfina Butcher, DO [address] [place] [address] 01/22/2024 8:00 AM EDT - 01/22/2024 9:00 AM EDT Surgery ENDO [facility], Endoscopy Room [facility] [address] [place] [phone] Delfina Butcher, DO [address] [place] [address] COLONOSCOPY FLEXIBLE PROXIMAL DIAGNOSTIC 05/08/2024 1:30 PM EDT Office Visit Orthopaedics Spine Surgery, [facility] [address] [place] [address] Praneeth Elizalde MD [address] [place] [address] [place] [address] 05/08/2024 2:20 PM EDT Office Visit [facility] [address] [place] [address] Rema Carpenter CRNP [address] [place] [address] 11/23/2024 9:00 AM EDT Office Visit [facility] [address] [place] [address] Henrik Campbell, [address] [place] [address] Scheduled Procedures Name Priority Associated Diagnoses Date/Ti [...] this encounter Medical Devices Implanted Type Area Inspectors And Regulatory Officers Device Identifier Shelf Expiration Date Model / Serial / Lot Lens Intraoc 19.5 - [id number] - [id number] Implanted:Qty: 1 on 12/07/2021 by Eulogio Barrios MD at OR [facility] Left: Eye [employer]OMB 07/25/2026 [id number] / [id number] / [id number] Lens Intraoc 19.5 - [id number] - [id number] Implanted:Qty: 1 on 12/19/2021 by Eulogio Barrios MD at OR [facility] Right: Eye BAUSCH [employer] LOMB 07/25/2026 [id number] / [id number] / [id number] documented as of this encounter Advance Directives Documents on File Type Date Recorded Patient Zipper Slide Attacher Expl anation Advance Directives and Living Will [...] Advance Directives occurred with: Patient Care Teams Retail Stocker Relationship Specialty Start Date End Date Henrik Campbell DO [address] [place] [address] PCP - General Family Medicine 06/02/18 documented as of this encounter
--- OUTSIDE RECORDS SUMMARY | 2023-12-07 22:22 | External Medical Summary ---
Author Name Unknown Address Unknown Organization K1F:LABORATORY [facility] - [address] [place] [address] Laboratory Report Ordering Provider Test Date Status LUCIA GRANT 11/28/2023 04:33:00 Final Observation Date Value Abnormality Reference (Units ) Status BUN 11/28/2023 04:33:00 21 Above high normal 6-20 (mg/dL) Final Creatinine 11/28/2023 04:33:00 1.4 Above high normal 0.6-1.2 (mg/dL) Final Glomerular filtration rate/1.73 sq M.predicted [Volume Rate/Area] in Serum, Plasma or Blood by Creatinine-based formula (CKD-EPI) 11/28/2023 04:33:00 52 Below low normal >=60 (mL/min) Final eGFR is calculated based on the CKD-EPI 2020 equation Sodium 11/28/2023 04:33:00 137 135-146 (m mol/L) Final Potassium 11/28/2023 04:33:00 4.1 3.5-5.1 (m mol/L) Final Cl 11/28/2023 04:33:00 99 98-107 (mm ol/L) Final CO2 11/28/2023 04:33:00 25 22-32 (mmo l/L) Final Anion gap 11/28/2023 04:33:00 13 7-15 (mmol /L) Final Glucose 11/28/2023 04:33:00 142 Above high normal 70 -120 (mg/dL) Final Calcium 11/28/2023 04:33:00 8.2 Below low normal 8.4 -10.2 (mg/dL) Final Performing Location LABORATORY [facility] - [address] [place] [address]
--- OUTSIDE RECORDS SUMMARY | 2023-12-07 22:22 | External Medical Summary | Summary of Care ---
Author Name Unknown Organization [facility] Address [address] [place] [address] Phone [phone] Care Team Providers Care Car Filler Name Role Phone Henrik Campbell DO Primary Care Provider Reason for Referral * Evaluate & Treat - Unlimited Visits (Within 10 days (routine)) - Authorized Specialty Diagnoses / Procedures Referred By Thao t Referred To Contact Neuro/Ortho Surgery - Spine. / Neurological Surgery Diagnoses Spinal stenosis of lumbar region with neurogenic claudication Henrik Campbell DO [address] [place] [address] Referral ID Status Reason Start Date Expiration Date Visits Requested Visits Authorized [id number] Authorized Specialty Services Required 11/11/2023 999 999 [...] 11/11/2023 1:20 PM EDT Office Visit Family [facility] [address] [place] [address] Henrik Campbell DO [address] [place] [address] Prediabetes*; HTN, goal below 140/90; Evans's esophagus [...] Budesonide 32 MCG/ACT Nasal Suspension Administer 1 [place] into nostril in the morning. 0 Active [...] Pain, Severe. 12 Tablet 0 4 024 Discontinued(Ak dication List Clean Up) documented as of [...] mRNA, LNP-s, No Pre serve, 2-Dose Series ([employer]) 07/17/2021,11/22/2020,10/26/2020 Pneumococcal Conjugate Vacc, 13 Valent (Prevnar) [...] note were not included. 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 - 4th Floor [address] [place] [address] Roberto Edwards MD [address] [place] [address] [place] [address] 11/27/2023 8:10 AM EDT - 11/27/2023 12:04 PM EDT Surgery OR [facility], Operating Room, [facility] - 4th Floor [address] [address] Roberto Edwards MD [address] [place] [address] [place] [address] LAPAROSCOPIC NEPHRECTOMY TOTAL URETERECTOMY 12/06/2023 10:00 AM EDT Nurse Only Urology [place]y Serrano [address] [place] [address] [place] [address] Nurse Woody Urology EDYTA Dior [address] [place] [address] [place] [address] 12/09/2023 3:15 PM EDT Office Visit Urology, [facility] [address] [place] [address] Roberto Edwards MD [address] [place] [address] [place] [address] 12/12/2023 1:00 PM EDT Telemedicine Psychiatry, [place] [address] [place] [address] Princess Kwon MD [address] [place] [address] 01/22/2024 8:00 AM EDT Hospital Encounter ENDO [facility], Endoscopy Room [facility] [address] [place] [phone] Delfina Butcher, DO [address] [place] [address] 01/22/2024 8:00 AM EDT - 01/22/2024 9:00 AM EDT Surgery ENDO [facility], Endoscopy Room [facility] [address] [place] [phone] Delfina Bucther, DO [address] [place] [address] COLONOSCOPY FLEXIBLE PROXIMAL DIAGNOSTIC 05/08/2024 1:30 PM EDT [facility] [address] [place] [address] Praneeth Elizalde MD [address] [place] [address] [place] [address] 05/08/2024 2:20 PM EDT Office Visit [facility] [address] [place] [address] Rema Carpenter CRNP [address] [place] [address] 11/23/2024 9:00 AM EDT Office Visit [facility] [address] [place] [address] Henrik Campbell DO [address] [place] [address] Scheduled Orders Name Type Priority Associated Diagnoses [...] this encounter Medical Devices Implanted Type Area Cultural Centre Manager Device Identifier Shelf Expiration Date Model / Serial / Lot Lens Intraoc 19.5 - [id number] - [id number] Implanted:Qty: 1 on 12/07/2021 by Eulogio Barrios MD at OR [facility] Left: Eye [employer] LOMB 07/25/2026 [id number] / [id number] / [id number] Lens Intraoc 19.5 - [id number] - [id number] Implanted:Qty: 1 on 12/19/2021 by Eulogio Barrios MD at OR [facility] Right: Eye [employer]USCH [employer] LOMB 07/25/2026 [id number] / [id number] / [id number] documented as of this encounter Visit Diagnoses [...] Documents on File Type Date Recorded Patient Projection Welding Machine Operator Expl anation Advance Directives and [...] Advance Directives occurred with: Patient Care Teams Car Filler Relationship Specialty Start Date End Date Henrik Campbell DO [address] [place] [address] [place] [address] PCP - General Family Medicine 06/02/18 documented as of this encounter"
--- OUTSIDE RECORDS SUMMARY | 2023-12-07 22:22 | External Medical Summary | Summary of Care ---
Author Name Unknown Organization [facility] Address [address] [facility] [address] Phone [phone] Care Team Providers Care Personal Injury Legal Assistant Name Role Phone Henrik Campbell DO Primary Care Provider Reason for Visit * Reason Onset Date Comments Medication Refill 11/06/2023 Encounter Details Date Type Department Care Team (Late st Contact Info) Description 11/06/2023 Refill [facility] [address] [place] [address] Henrik Campbell DO [address] [place] [address] Allergies Active Allergy Reactions Criticality Noted Date [...] Budesonide 32 MCG/ACT Nasal Suspension Administer 1 [place] into nostril in the morning. 0 Active Emgality 120 MG/ML Subcutaneous Solution Auto-injector ([facility]anezumab-[facility]) Inject 120 mg (1mL) under skin [...] THE MORNING 90 Capsule 3 11/05/2023 Active documented as of this encounter (statuses [...] mRNA, LNP-s, No Pre serve, 2-Dose Series ([employer]) 07/17/2021,11/22/2020,10/26/2020 Pneumococcal Conjugate Vacc, 13 Valent (Prevnar) [...] 11/27/2023 8:10 AM EDT Hospital Encounter OR [facility], Operating Room, [facility] - 4th Floor [address] [place] [address] Roberto Edwards MD [address] [place] [address] 11/27/2023 8:10 AM EDT - 11/27/2023 12:04 PM EDT Surgery OR [facility], Operating Room, [facility] - 4th Floor [address] [place] [address] Roberto Edwards MD [address] [place] [address] [place] [address] LAPAROSCOPIC NEPHRECTOMY TOTAL URETERECTOMY 12/06/2023 10:00 AM EDT Nurse Only Urology Woody Serrano [address] [place] [address] [place] [address] Woody Nurse Urology EDYTA Dior [address] [place] [address] [place] [address] 12/09/2023 3:15 PM EDT Office Visit Urology, [facility] [address] [place] [address] Roberto Edwards MD [address] [place] [address] [place] [address] 12/12/2023 1:00 PM EDT Telemedicine [facility], [place] [address] [place] [address] Princess Kwon MD [address] [place] [address] 01/22/2024 8:00 AM EDT Hospital Encounter ENDO [facility], Endoscopy Room [facility] [address] [place] [address] Delfina Butcher, DO [address] [place] [address] 01/22/2024 8:00 AM EDT - 01/22/2024 9:00 AM EDT Surgery ENDO [facility], Endoscopy Room [facility] [address] [place] [address] Delfina Butcher, DO [address] [place] [address] COLONOSCOPY FLEXIBLE PROXIMAL DIAGNOSTIC 05/08/2024 1:30 PM EDT Office Visit Orthopaedics Spine Surgery, [facility] [address] [place] [address] Praneeth Elizalde MD [address] [place] [address] [place] [address] 05/08/2024 2:20 PM EDT Office Visit [facility] [address] [place] [address] Rema Carpenter CRNP [address] [place] [address] 11/23/2024 9:00 AM EDT Office Visit [facility] [address] [place] [address] Henrik Campbell DO [address] [place] [address] Scheduled Procedures Name Priority Associated Diagnoses Date/Ti [...] this encounter Medical Devices Implanted Type Area Surgical Instrument Maker Device Identifier Shelf Expiration Date Model / Serial / Lot Lens Intraoc 19.5 - [id number] - [id number] Implanted:Qty: 1 on 12/07/2021 by Eulogio Barrios MD at OR [facility] Left: Eye [employer]OM[employer] 07/25/2026 [id number] / [id number] / [id number] Lens Intraoc 19.5 - [id number] - [id number] Implanted:Qty: 1 on 12/19/2021 by Eulogio Barrios MD at OR [facility] Right: Eye [employer] LOMB 07/25/2026 [id number] / [id number] / [id number] documented as of this encounter Advance Directives Documents on File Type Date Recorded Patient Parts Interpreter Expl anation Advance Directives and Living Will [...] Advance Directives occurred with: Patient Care Teams Personal Injury Legal Assistant Relationship Specialty Start Date End Date Henrik Campbell DO [address] [place] [address] PCP - General Family Medicine 06/02/18 documented as of this encounter
--- OUTSIDE RECORDS SUMMARY | 2023-12-07 22:22 | External Medical Summary ---
Author Name Unknown Address Unknown Organization [id number]:LABORATORY [facility] - [address] [place] [address] Laboratory Report Ordering Provider Test Date Status LUCIA GRANT 11/27/2023 12:48:02 Final SCREENING Observation Date Value Abnormality Reference (Units ) Status SARS Coronavirus 2 11/27/2023 12:48:02 Negative N egative Final 2019 Novel Coronavirus not d etected.

This express test was developed and its performance characteristics determined by [facility]. It has not been cleared or approved [...] (RT-PCR) test, or a Centers for Disease Control-acceptable equivalent. The test is performed in a high complexity Clinical Laboratory Improvement Amendments-(CLIA) certified laboratory. The test is acceptable for SARS-CoV-2 diagnosis, surveillance, and travel within the [place] and to most countries. Please check with local testing authorities about requirements before travel.

The validation of bronchial specimens, tracheal aspirates, and sputum for this assay was developed and performance characteristics determined by [facility]. The validation of alternate specimen types has not been cleared or approved by the U.S. Food and Drug Administration (FDA). It has been determined that such clearance is not necessary. Performing Location LABORATORY [facility] - [address] [place] [address]
--- OUTSIDE RECORDS SUMMARY | 2023-12-07 22:22 | External Medical Summary ---
Author Name Unknown Address Unknown Organization : Laboratory Report Ordering Provider Test Date Status LUCIA GRANT 11/27/2023 07:22:37 Final Observation Date Value Abnormality Reference (Units ) Status Glucose Point of Care 11/27/2023 07:22:37 129 Above high normal 70-120 (mg/dL) Final Performing Location
--- OUTSIDE RECORDS SUMMARY | 2023-12-07 22:22 | External Medical Summary ---
Author Name Unknown Address Unknown Organization K1F:LABORATORY [facility] - [address] [place] [address] Laboratory Report Ordering Provider Test Date Status LUCIA GRANT 11/28/2023 04:33:00 Final Observation Date Value Abnormality Reference (Units ) Status WBC, Total 11/28/2023 04:33:00 12.54 Above high normal 4.00-10.80 (K/uL) Final RBC 11/28/2023 04:33:00 4.45 4.50-5.25 (M/uL) Final Hemoglobin 11/28/2023 04:33:00 14.3 14.0-16.8 (g/dL) Final HCT 11/28/2023 04:33:00 42.4 40.0-48.4 (%) Final MCV 11/28/2023 04:33:00 95.3 82.0-99.5 (fL) Final MCH 11/28/2023 04:33:00 32.1 27.0-34.0 (pg) Final MCHC 11/28/2023 04:33:00 33.7 32.0-36.0 (g/dL) Final RDW 11/28/2023 04:33:00 12.9 11.5-15.5 (%) Final Platelets 11/28/2023 04:33:00 249 140-400 (K/uL) Final MPV 11/28/2023 04:33:00 9.4 6.6-11.1 (fL) Final Nucleated erythrocytes/100 leukocytes [Ratio] in Blood by Automated count 11/28/2023 04:33:00 0 <=0 (/100 WBCs) Final Performing Location LABORATORY [facility] - [address] [place] [address]
--- OUTSIDE RECORDS SUMMARY | 2023-12-07 22:22 | External Medical Summary | Summary of Care ---
Author Name Unknown Organization [facility] Address [address] [place] [address] Phone [phone] Care Team Providers Care Drilling Assistant Name Role Phone Campbell Henrik Brandgabbi Primary Care Provider Reason for Visit * Reason Onset Date Comments Medication Refill 11/27/2023 Encounter Details Date Type Department Care Team (Late st Contact Info) Description 11/27/2023 Refill [facility] [address] [place] [address] Oli Renee MD [address] [place] [address] Allergies Active Allergy Reactions Criticality Noted Date Comments Azelastine Unknown 02/01/2021 Onabotulinumtoxina Other (Please comment) High 01/20/2021 Swallowing difficulty after injection documented as of this encounter (statuses as of 11/27/2023) Medications Medication Sig Dispensed Refills Start Date End Date Status Mirtazapine 15 MG Oral Tablet (Remeron) Take 1 Tablet by mouth at bedtime. 30 Tablet 5 4 Active VITAMIN B-12 100 MCG PO [...] 1 Inhaler 1 8 Suspended Additional Information zoster vac recomb adjuvanted (SHINGRIX) 50 MCG/0.5ML injectionIndication s:Need for vaccination for zoster Inject 0.5 mL into a large muscle now and repeat dose in 60 to 180 days 1 Each 1 0 Suspended Additional Information Patient not taking.Reported on [...] Budesonide 32 MCG/ACT Nasal Suspension Administer 1 [place] into nostril in the morning. 0 Suspended Emgality 120 MG/ML Subcutaneous Solution Auto-injector (Galcanezumab-[facility]) Inject 120 mg (1mL) under skin as directed once a month. 1 mL 11 3 Suspended Additional Information Patient not taking.Reported on [...] 90 Tablet 11 3 Suspended Additional Information Mirtazapine 15 MG Oral Tablet (Remeron) Take 1 Tablet by mouth at bedtime. 30 Tablet 5 3 11/27/19 24 Discontinued( Refill) Rimegepant Sulfate 75 MG Oral Tablet Disintegrating 75 mg. 0 3 Suspended Ondansetron HCl 4 MG Oral Tablet (Zofran) 1 Tablet. 0 3 Suspended Propranolol HCl 10 MG [...] as needed for Anxiety. 0 3 Suspended Sulfamethoxazole-Tr imethoprim 800-160 MG Oral Tablet (Bactrim DS) Take 1 Tablet by mouth in the morning and 1 Tablet before bedtime. 10 Tablet 0 4 Suspended Additional Information Patient not taking.Reported on 11/13/2023 Phenazopyridine HCl 200 MG Oral Tablet (Pyridium) Take 1 Tablet by mouth 3 times a day as needed for Other (bladder spasms). After meals. 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 06/11/2022 Sciatica 01/17/2017 05/28/2017 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 05/28/2017 Nocturia 06/20/2005 05/28/2017 ringworm-left cheek 05/11/2002 05/28/20 17 lesion under left arm 05/11/20022016 Chronic sinusitis 05/28/2017 documented as of this encounter (statuses as of 11/27/2023) Immunizations Name Administration Dates Next Due COVID-19 mRNA, LNP-s, No Pre serve, 2-Dose Series ([employer]) 07/17/2021,11/22/2020,10/26/2020 Pneumococcal Conjugate Vacc, 13 Valent (Prevnar) [...] encounter Miscellaneous Notes * Telephone Encounter - Oli Renee MD - 11/27/2023 9:57 AM EDTSigned Prescriptions: Disp Refills Mirtazapine 15 MG Oral Tablet (Remeron) 30 Tab*5 Sig: Take 1 Tablet by mouth at bedtime. Authorizing Provider: OLI RENEE * Telephone Encounter - Jessica Collins LPN - 11/27/2023 9:45 AM EDT Pharmacy requesting refill on Remeron 15mg. Medication was last filled on 05/30/23 with 5 refills. Patient last seen on 11/08/23 with return appointment scheduled for 12/12/23. Patient had 0 cancelled appointments and 0 NO SHOW appointments. documented in this encounter Plan of Treatment Upcoming Encounters Date Type Department Care Team (Late st Contact Info) Description 12/06/2023 10:00 AM EDT Nurse Only Urology Woody Serrano [address] [place] [address] [place] [address] Nurse Woody Urology EDYTA Dior [address] [place] [address] [place] [address] 12/09/2023 3:15 PM EDT Office Visit Urology, [facility] [address] [facility] [place] [address] Roberto Edwards MD [address] [place] [address] [place] [address] 12/12/2023 1:00 PM EDT Telemedicine Psychiatry, [place] [address] [place] [address] [facility] [address] [facility] [address] 01/22/2024 8:00 AM EDT Hospital Encounter ENDO [facility], Endoscopy Room [facility] [address] [facility] [place] [phone] Delfina Butcher, DO [address] [place] [address] 01/22/2024 8:00 AM EDT - 01/22/2024 9:00 AM EDT Surgery ENDO [facility], Endoscopy Room [facility] [address] [place] [phone] Delfina Butcher, DO [address] [place] [address] COLONOSCOPY FLEXIBLE PROXIMAL DIAGNOSTIC 05/08/2024 1:30 PM EDT Office Visit Orthopaedics Spine Surgery, [facility] [address] [place] [address] Praneeth Elizalde MD [address] [place] [address] [place] [address] 05/08/2024 2:20 PM EDT Office Visit [facility] [address] [place] [address] Rema Carpenter CRNP [address] [place] [address] 11/23/2024 9:00 AM EDT Office Visit [facility] [address] [place] [address] Henrik Cambpell DO [address] [place] [address] Scheduled Procedures Name Priority Associated Diagnoses Date/Ti me LAPAROSCOPIC NEPHRECTOMY TOT AL URETERECTOMY Urothelial carcinoma of kidney, right (HCC) 11/27/2023 7:30 AM EDT COLONOSCOPY FLEXIBLE PROXIMA L DIAGNOSTIC [...] this encounter Medical Devices Implanted Type Area Telephone Operators Supervisor Device Identifier Shelf Expiration Date Model / Serial / Lot Lens Intraoc 19.5 - [id number] - [id number] Implanted:Qty: 1 on 12/07/2021 by Eulogio Barrios MD at OR [facility] Left: Eye [employer]OM[employer] 07/25/2026 [id number] / [id number] / [id number] Lens Intraoc 19.5 - [id number] - [id number] Implanted:Qty: 1 on 12/19/2021 by Eulogio Barrios MD at OR [facility] Right: Eye [employer] LOMB 07/25/2026 [id number] / [id number] / [id number] documented as of this encounter Advance Directives Documents on File Type Date 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
--- OUTSIDE RECORDS SUMMARY | 2023-12-07 22:22 | External Medical Summary ---
Author Name Unknown Address Unknown Organization K0G:LABORATORY [place] [facility] - [address] [place] [address] Laboratory Report Ordering Provider Test Date Status KAVITHA LIM 11/20/2023 08:25:29 Final Warfarin Therapy
INR: 2 .0-3.0 conventional anticoagulation
INR: 2.5- 3.5 high intensity anticoagulation Observation Date Value Abnormality Reference (Units ) Status PT 11/20/2023 08:25:29 14.2 11.6-15.2 (seconds) Final INR 11/20/2023 08:25:29 1.1 0.8-1.2 Final Performing Location LABORATORY [facility] [place] [facility] 0 - [address] [place] [address]
--- OUTSIDE RECORDS SUMMARY | 2023-12-07 22:23 | External Medical Summary ---
Author Name Unknown Address Unknown Organization K0G:LABORATORY [facility] [place] [facility] - [address] [place] [address] Laboratory Report Ordering Provider Test Date Status KEITH SWAN 11/06/2023 08:56:44 Final Observation Date Value Abnormality Reference (Units ) Status WBC, Total 11/06/2023 08:56:44 8.06 4.00-10.8 0 (K/uL) Final RBC 11/06/2023 08:56:44 4.79 4.50-5.25 (M/uL) Final Hemoglobin 11/06/2023 08:56:44 15.3 14.0-16.8 (g/dL) Final HCT 11/06/2023 08:56:44 44.3 40.0-48.4 (%) Final MCV 11/06/2023 08:56:44 92.5 82.0-99.5 (fL) Final MCH 11/06/2023 08:56:44 31.9 27.0-34.0 (pg) Final MCHC 11/06/2023 08:56:44 34.5 32.0-36.0 (g/dL) Final RDW 11/06/2023 08:56:44 12.4 11.5-15.5 (%) Final Platelets 11/06/2023 08:56:44 212 140-400 (K /uL) Final MPV 11/06/2023 08:56:44 9.1 6.6-11.1 ( fL) Final Performing Location LABORATORY [facility] [place] [facility] 0 - [address] [place] [address]
--- OUTSIDE RECORDS SUMMARY | 2023-12-07 22:23 | External Medical Summary | Summary of Care ---
Author Name Unknown Organization [facility] Address [address] [place] [address] Phone [phone] Care Team Providers Care Bulk Station Agent Name Role Phone Henrik Campbell DO Primary Care Provider Reason for Referral * Evaluate & Treat - Unlimited Visits (Within 10 days (routine)) - Authorized Specialty Diagnoses / Procedures Referred By Thao t Referred To Contact Neuro/Ortho Surgery - Spine. / Neurological Surgery Diagnoses Spinal stenosis of lumbar region with neurogenic claudication Henrik Campbell DO [address] [place] [address] Referral ID Status Reason Start Date Expiration Date Visits Requested Visits Authorized [id number] Authorized Specialty Services Required 11/11/2023 999 999 [...] 11/11/2023 1:20 PM EDT Office Visit Family [facility] [address] [place] [address] Henrik Campbell DO [address] [place] [address] Prediabetes*; HTN, goal below 140/90; 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; Lumbago-sciatica due to displacement of lumbar intervertebral disc; Intractable chronic migraine without aura and without status migrainosus; Chronic tension-type headache, intractable; FAHAD (generalized anxiety disorder); Major depressive disorder, recurrent episode, moderate (HCC); Other atopic dermatitis; Dyslipidemia, goal LDL below 130; Spinal stenosis of lumbar region with neurogenic claudication Allergies Active Allergy Reactions Criticality Noted Date Comments Azelastine Unknown 02/01/2021 Onabotulinumtoxina Other (Please comment) High 01/20/2021 Swallowing difficulty after injection documented as of this encounter (statuses as of 11/11/2023) Medications Medication Sig Dispensed Refills Start Date [...] Budesonide 32 MCG/ACT Nasal Suspension Administer 1 [place] into nostril in the morning. 0 Active Emgality 120 MG/ML Subcutaneous Solution Auto-injector (Galcanezumab-[facility] ) Inject 120 mg (1mL) under skin [...] head pain 90 Tablet 11 3 Active Additional Information Patient not [...] before bedtime. 10 Tablet 0 4 Active Phenazopyridine HCl 200 MG Oral Tablet (Pyridium) [...] Pain, Severe. 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 06/11/2022 Sciatica 01/17/2017 05/28/2017 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 05/28/2017 Nocturia 06/20/2005 05/28/2017 ringworm-left cheek 05/11/2002 05/28/20 17 lesion under left arm 05/11/20022016 Chronic sinusitis 05/28/2017 documented as of this encounter (statuses as of 11/11/2023) Immunizations Name Administration Dates Next Due COVID-19 mRNA, LNP-s, No Pre serve, 2-Dose Series ([employer]) 07/17/2021,11/22/2020,10/26/2020 Pneumococcal Conjugate Vacc, 13 Valent (Prevnar) [...] Team (Late st Contact Info) Description 11/13/2023 1:15 PM EDT Telemedicine Urology Woody Serrano [address] [place] [address] [place] [address] Roberto Edwards MD [address] [place] [address] [place] [address] 7, Telemed [facility] Urology Ex Rm [address] [place] [address] 11/27/2023 8:10 AM EDT Hospital Encounter OR [facility], Operating Room, [facility] - 4th Floor [facility] [address] Roberto Edwards MD [address] [place] [address] [place] [address] 11/27/2023 8:10 AM EDT - 11/27/2023 12:04 PM EDT Surgery OR [facility], Operating Room, [facility] - 4th Floor [address] [place] [address] Roberto Edwards MD [address] [place] [address] [place] [address] LAPAROSCOPIC NEPHRECTOMY TOTAL URETERECTOMY 12/02/2023 1:00 PM EDT Nurse Only Urology, [facility] [address] [place] [address] [facility], Nurse Urology [facility] [address] [place] [address] 12/09/2023 3:15 PM EDT Office Visit Urology, [facility] [address] [place] [address] Roberto Edwards MD [address] [place] [address] [place] [address] 12/12/2023 1:00 PM EDT [facility] [address] [place] [address] Princess Kwon MD [address] [place] [address] 01/22/2024 8:00 AM EDT Hospital Encounter [facility]O [facility], Endoscopy Room [facility] [address] [place] [phone] Delfina Butcher, DO [address] [place] [address] 01/22/2024 8:00 AM EDT - 01/22/2024 9:00 AM EDT Surgery ENDO [facility], Endoscopy Room [facility] [address] [place] [phone] Delfina Butcher, DO [address] [place] [address] COLONOSCOPY FLEXIBLE PROXIMAL DIAGNOSTIC 05/08/2024 1:30 PM EDT Office Visit Orthopaedics Spine Surgery, [facility] [address] [place] [address] Praneeth Elizalde MD [address] [address] [place] [address] 05/08/2024 2:20 PM EDT Office Visit [facility] [address] [place] [address] Rema Carpenter CRNP [address] [place] [address] 11/23/2024 9:00 AM EDT Office Visit [facility] [address] [place] [address] Henrik Campbell, [address] [place] [address] Scheduled Orders Name Type Priority Associated Diagnoses [...] encounter Medical Devices Implanted Type Area Vp Of Global Marketing Device Identifier Shelf Expiration Date Model / Serial / Lot Lens Intraoc 19.5 - [id number] - [id number] Implanted:Qty: 1 on 12/07/2021 by Eulogio Barrios MD at OR [facility] Left: Eye [employer]OMB 07/25/2026 [id number] / [id number] / [id number] Lens Intraoc 19.5 - [id number] - [id number] Implanted:Qty: 1 on 12/19/2021 by Eulogio Barrios MD at OR [facility] Right: Eye [employer] LOMB 07/25/2026 [id number] / [id number] / [id number] documented as of this encounter Visit Diagnoses [...] claudication Urothelial carcinoma of kidney, right (HCC) Evans's esophagus History of colon polyps Personal history of colonic polyps documented in this encounter Advance Directives Documents on File Type Date Recorded 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
--- OUTSIDE RECORDS SUMMARY | 2023-12-07 22:23 | External Medical Summary | Summary of Care ---
Author Name Unknown Organization [facility] Address [address] [facility] [place] [address] Phone [phone] Care Team Providers Care Business Management Consultant Name Role Phone Beny Campbell DO Primary Care Provider Reason for Visit * Reason Comments eRx-Medication Refill Encounter Details Date Type Department Care Team (Late st Contact Info) Description 11/01/2023 Refill Family Practice [facility] [address] [place] [address] Beny Campbell DO [address] [place] [address] Allergies Active Allergy Reactions Criticality Noted Date Comments Azelastine Unknown 02/01/2021 Onabotulinumtoxina Other (Please comment) High 01/20/2021 Swallowing difficulty after injection documented as of this encounter (statuses as of 11/02/2023) Medications Medication Sig Dispensed Refills Start Date [...] Budesonide 32 MCG/ACT Nasal Suspension Administer 1 [place] into nostril in the morning. 0 Active Emgality 120 MG/ML Subcutaneous Solution Auto-injector (Galcanezumab-[facility]) Inject 120 mg (1mL) under skin as directed once a month. 1 mL 11 3 Active Additional Information Patient not taking.Reported on 08/09/2023 Indomethacin 50 MG Oral Capsule Take one capsule by mouth up to three times per day as needed for head and neck pain 90 Capsule 11 3 Active oxyCODONE HCl 5 MG Oral Capsule (Oxy IR) Take 1 Capsule by mouth every 4 hours as needed. 0 Active Tamsulosin HCl 0.4 MG Oral Capsule (Flomax)Indications :BPH with obstruction/lower urinary tract symptoms TAKE ONE CAPSULE BY MOUTH IN THE MORNING 90 Capsule 3 3 Active Metaxalone 800 MG Oral Tablet Take [...] Tablet (Zofran) 1 Tablet. 0 3 Active Ketorolac Tromethamine 10 MG Oral Tablet (Toradol) 1 Tablet. 0 3 Active Propranolol HCl [...] as needed for Anxiety. 0 3 Active Sulfamethoxazole-Tr imethoprim 800-160 MG Oral Tablet (Bactrim DS) Take 1 Tablet by mouth in the morning and 1 Tablet before bedtime. 10 Tablet 0 4 Active oxyCODONE-Acetamino phen 5-325 MG Oral Tablet (Percocet) Take 1 Tablet by mouth every 6 hours as needed for Pain, Severe. 12 Tablet 0 4 Active Phenazopyridine HCl 200 MG Oral Tablet (Pyridium) Take 1 Tablet by mouth 3 times a day as needed for Other (bladder spasms). After meals. 15 Tablet 0 4 Active Finasteride 5 MG Oral Tablet (Proscar)Indication s:BPH with obstruction/lower urinary tract symptoms Take 1 Tablet by mouth in the morning. 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 06/11/2022 Sciatica 01/17/2017 05/28/2017 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 05/28/2017 Nocturia 06/20/2005 05/28/2017 ringworm-left cheek 05/11/2002 05/28/20 17 lesion under left arm 05/11/20022016 Chronic sinusitis 05/28/2017 documented as of this encounter (statuses as of 11/02/2023) Immunizations Name Administration Dates Next Due COVID-19 mRNA, LNP-s, No Pre serve, 2-Dose Series ([employer]) 07/17/2021,11/22/2020,10/26/2020 Pneumococcal Conjugate Vacc, 13 Valent (Prevnar) [...] encounter Miscellaneous Notes * Telephone Encounter - Daniella Farmer, [facility] - 11/02/2023 5:54 AM ESTSigned Prescriptions: Disp Refills Lisinopril-hydroCHLOROthiazide 20-12.5 MG *90 Tab*1 Sig: TAKE 1 TABLET BY MOUTH ONCE DAILYAuthorizing Provider: BENY CAMPBELL User: DANIELLA FARMER documented in this encounter Plan of Treatment Upcoming Encounters Date Type Department Care Team (Latest Contact Info) Description 11/08/2023 3:00 PM EDT Telemedicine Psychiatry, [place] [address] [place] [place] [address] Princess Kwon MD [address] [place] [address] 11/11/2023 1:20 PM EDT Office Visit Family [facility] [address] [place] [address] Beny Campbell DO [address] [place] [address] 11/13/2023 1:15 PM EDT Telemedicine Urology Woody Serrano [address] [place] [address] [place] [address] Roberto Edwards MD [address] [place] [address] [place] [address] 7, Telemed [facility] Urology Ex [address] [place] [address] 11/27/2023 8:10 AM EDT Hospital Encounter OR GL, Operating Room, [facility] - 4th Floor [address] [place] [address] Roberto Edwards MD [address] [place] [address] [place] [address] 11/27/2023 8:10 AM EDT - 11/27/2023 12:04 PM EDT Surgery OR [facility], Operating Room, [facility] - 4th Floor [address] [place] [address] Roberto Edwards MD [address] [place] [address] [place] [address] LAPAROSCOPIC NEPHRECTOMY TOTAL URETERECTOMY 12/02/2023 1:00 PM EDT Nurse Only Urology, [facility] [address] [place] [address] [facility], Nurse Urology [facility] [address] [place] [address] 12/09/2023 3:15 PM EDT Office Visit Urology, [facility] [address] [place] [address] Roberto Edwards MD [address] [place] [address] [place] [address] 01/22/2024 8:00 AM EDT Hospital Encounter ENDO [facility], Endoscopy Room [facility] [address] [place] [address] Delfina Butcher, DO [address] [place] [address] 01/22/2024 8:00 AM EDT - 01/22/2024 9:00 AM EDT Surgery ENDO [facility], Endoscopy Room [facility] [address] [place] [address] Delfina Butcher, DO [address] [place] [address] COLONOSCOPY FLEXIBLE PROXIMAL DIAGNOSTIC Scheduled Procedures Name Priority Associated Diagnoses Date/Ti mi LAPAROSCOPIC NEPHRECTOMY TOT AL URETERECTOMY Urothelial carcinoma [...] 07/17/2021, 11/22/2020, 10/26/2020 Depression Screening 06/14/2023 06/14/2022 HbA1c 03/22/2024 03/22/2023, 10/2021, 05/25/2021, Additional history exists GFR 07/30/2024 07/30/2023, 02/24, 10/25/2022, Additional history exists Evans's Esophagus Surveilance 08/03/2024 08/03/2021, 08/03/2021, 10/28/2020, Additional history exists COLONOSCOPY-EVERY 3 YRS AGES 18-100 08/03/2024 08/03/2021, 08/03/2021, 07/23/2018, Additional history exists Albumin/Creatinine Ratio 03/22/2026 03/22/2023, 01/25 DTaP,Tdap,and Td Vaccines (3 - Td or [...] this encounter Medical Devices Implanted Type Area Road Passenger Firer Device Identifier Shelf Expiration Date Model / Serial / Lot Lens Intraoc 19.5 - [id number] - [id number] Implanted:Qty: 1 on 12/07/2021 by Eulogio Barrios MD at OR [facility] Left: Eye [employer] 07/25/2026 [id number] / [id number] / [id number] Lens Intraoc 19.5 - [id number] - [id number] Implanted:Qty: 1 on 12/19/2021 by Eulogio Barrios MD at OR [facility] Right: Eye [employer]USCH [employer] LOMB 07/25/2026 [id number] / [id number] / [id number] documented as of this encounter Advance Directives Documents on File Type Date Recorded Patient Slab Inspector Expl anation Advance Directives and Living [...] Advance Directives occurred with: Patient Care Teams Business Management Consultant Relationship Specialty Start Date End Date Beny Campbell DO [address] [facility] [place] [address] PCP - General Family Medicine 06/02/18 documented as of this encounter
--- OUTSIDE RECORDS SUMMARY | 2023-12-07 22:23 | External Medical Summary ---
Author Name Unknown Address Unknown Organization [id number]:[facility] - [address] [place] [address] Laboratory Report Ordering Provider Test Date Status KEITH SWAN 11/06/2023 08:56:44 Final Observation Date Value Abnormality Reference (Units ) Status SYNC LEUKOCYTES IN BLOOD BY AUTOMATED COUNT 11/06/2023 08:56:44 8.06 4.00-10.80 (K/uL) Final Neutrophils/100 leukocytes in Blood by Manual count 11/06/2023 08:56:44 67.0 40.0-75.0 (%) Final Lymphocytes/100 leukocytes in Blood by Manual count 11/06/2023 08:56:44 19.0 18.0-42.0 (%) Final Monocytes/100 leukocytes in Blood by Manual count 11/06/2023 08:56:44 10.0 1.0-11.0 (%) Final Eosinophils/100 leukocytes in Blood by Manual count 11/06/2023 08:56:44 4.0 0.0-6.0 (%) Final Neutrophils [#/volume] in Blood by Manual count 11/06/2023 08:56:44 5.40 1.80-7.70 (K/uL) Final Lymphocytes [#/volume] in Blood by Manual count 11/06/2023 08:56:44 1.53 1.00-4.80 (K/uL) Final Monocytes [#/volume] in Blood by Manual count 11/06/2023 08:56:44 0.81 0.00-1.10 (K/uL) Final Eosinophils [#/volume] in Blood by Manual count 11/06/2023 08:56:44 0.32 0.00-0.70 (K/uL) Final Nucleated erythrocytes/100 leukocytes [Ratio] in Blood by Automated count 11/06/2023 08:56:44 Final Performing Location [facility] [address] - [address] [place] [address]
--- OUTSIDE RECORDS SUMMARY | 2023-12-07 22:23 | External Medical Summary | Summary of Care ---
Author Name Unknown Organization [facility] Address [address] [place] [address] Phone [phone] Care Team Providers Care Principal Secretary Name Role Phone Adrian Henrik Diaz DO Primary Care Provider Reason for Visit * Reason Comments Outpatient Testing Encounter Details Date Type Department Care Team (Late st Contact Info) Description 11/06/2023 9:10 AM EDT Laboratory Laboratory, [facility] [place] [address] [facility] [address] [facility] [place] [address] Urothelial carcinoma of kidney, right (HCC); Gastroesophageal reflux disease, unspecified whether esophagitis present; Prediabetes; Dyslipidemia, goal LDL below 100; Disorder of kidney and ureter, unspecified; HTN, goal below 140/90 Allergies Active Allergy Reactions Criticality Noted Date Comments Azelastine Unknown 02/01/2021 Onabotulinumtoxina Other (Please comment) High 01/20/2021 Swallowing difficulty after injection documented as of this encounter (statuses as of 11/06/2023) Medications Medication Sig Dispensed Refills Start Date [...] Budesonide 32 MCG/ACT Nasal Suspension Administer 1 [place] into nostril in the morning. 0 Active Emgality 120 MG/ML Subcutaneous Solution Auto-injector (Galcanezumab-gnlm) Inject 120 mg (1mL) under skin as directed once a month. 1 mL 11 08/30/2022 Active Additional Information Patient not taking.Reported on 08/09/2023 Indomethacin 50 MG Oral Capsule Take one capsule by mouth up to three times per day as needed for head and neck pain 90 Capsule 11 09/13/2022 Active oxyCODONE HCl 5 MG Oral Capsule [...] (Zofran) 1 Tablet. 0 10/20/2022 Acti ve Ketorolac Tromethamine 10 MG Oral Tablet (Toradol) 1 Tablet. 0 10/20/2022 Active Propranolol HCl 10 MG Oral Tablet [...] before bedtime. 10 Tablet 0 09/02/2023 Active oxyCODONE-Acetaminop hen 5-325 MG Oral Tablet (Percocet) Take 1 Tablet by mouth every 6 hours as needed for Pain, Severe. 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 06/11/2022 Sciatica 01/17/2017 05/28/2017 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 05/28/2017 Nocturia 06/20/2005 05/28/2017 ringworm-left cheek 05/11/2002 05/28/20 17 lesion under left arm 05/11/20022016 Chronic sinusitis 05/28/2017 documented as of this encounter (statuses as of 11/06/2023) Immunizations Name Administration Dates Next Due COVID-19 mRNA, LNP-s, No Pre serve, 2-Dose Series ([employer]) 07/17/2021,11/22/2020,10/26/2020 Pneumococcal Conjugate Vacc, 13 Valent (Prevnar) [...] Description 11/08/2023 3:00 PM EDT Telemedicine Psychiatry, [place] [address] [place] [address] Princess Kwon MD [address] [place] [address] 11/11/2023 1:20 PM EDT Office Visit Family [facility] [address] [place] [address] Henrik Campbell, [address] [place] [address] 11/13/2023 1:15 PM EDT Telemedicine Urology Woody Serrano [address] [place] [address] [place] [address] Roberto Edwards MD [address] [place] [address] [place] [address] 7, Telemed [facility] Urology Ex Rm [address] [place] [address] 11/27/2023 8:10 AM EDT Hospital Encounter OR [facility], Operating Room, [facility] - 4th Floor [address] [place] [address] Roberto Edwards MD [address] [place] [address] [place] [address] 11/27/2023 8:10 AM EDT - 11/27/2023 12:04 PM EDT Surgery OR [facility], Operating Room, [facility] - 4th Floor [address] [place] [address] Roberto Edwards MD [address] [place] [address] [place] [address] LAPAROSCOPIC NEPHRECTOMY TOTAL URETERECTOMY 12/02/2023 1:00 PM EDT Nurse Only Urology, [facility] [address] [place] [address] Nurse Jonathan Urology [facility] [address] [place] [address] 12/09/2023 3:15 PM EDT Office Visit Urology, [facility] [address] [place] [address] Roberto Edwards MD 27 [facility] [address] [place] [address] 01/22/2024 8:00 AM EDT Hospital Encounter ENDO [facility], Endoscopy Room [facility] [address] [place] [address] Delfina Butcher, DO [address] [place] [address] 01/22/2024 8:00 AM EDT - 01/22/2024 9:00 AM EDT Surgery ENDO OSS, Endoscopy Room [facility] [address] [place] [address] Delfina Butcher, DO [address] [place] [address] COLONOSCOPY FLEXIBLE PROXIMAL DIAGNOSTIC Pending Results Name Type Priority Associated Diagnoses Date /Time PT INR Lab Routine Urothelial carcinoma of kidney, right (HCC) 11/06/2023 8:56 AM EDT CBC WITH WBC DIFFERENTIAL Lab Routine Gastroesophageal reflux disease, unspecified whether esophagitis present 11/06/2023 8:56 AM EDT COMPREHENSIVE METABOLIC PANEL Lab Routine Prediabetes 11/06/2023 8:56 AM EDT HEMOGLOBIN A1C Lab Routine Prediabetes 11/06/2023 8:56 AM EDT LIPID PANEL WITH DIRECT LDL IF TG IS HIGH Lab Routine Dyslipidemia, goal LDL below 100 11/06/2023 8:56 AM EDT CBC Lab Routine Gastroesophageal reflux disease, unspecified whether esophagitis present 11/06/2023 8:56 AM EDT DIFFERENTIAL, AUTOMATED Lab Routine Gastroesophageal reflux disease, unspecified whether esophagitis present 11/06/2023 8:56 AM EDT CULTURE, URINE, QUANTITATIVE Lab Routine Urothelial carcinoma of kidney, right (HCC) Disorder of kidney and ureter, unspecified 11/06/2023 8:58 AM EDT ALBUMIN / CREATININE RATIO, URINE Lab Routine HTN, goal below 140/90 11/06/2023 8:58 AM EDT Scheduled Procedures Name Priority Associated [...] this encounter Medical Devices Implanted Type Area Web Services Manager Device Identifier Shelf Expiration Date Model / Serial / Lot Lens Intraoc 19.5 - [id number] - [id number] Implanted:Qty: 1 on 12/07/2021 by Eulogio Barrios MD at OR [facility] Left: Eye [employer]OM[employer] 07/25/2026 [id number] / [id number] / [id number] Lens Intraoc 19.5 - [id number] - [id number] Implanted:Qty: 1 on 12/19/2021 by Eulogio Barrios MD at OR [facility] Right: Eye BAUSCH [employer] LOMB 07/25/2026 [id number] / [id number] / [id number] documented as of this encounter Visit Diagnoses Diagnosis Urothelial carcinoma of kidney, right (HCC) Gastroesophageal reflux disease, unspecified whether esophagitis present Prediabetes Other abnormal glucose Dyslipidemia, goal LDL below 100 Other and unspecified hyperlipidemia Disorder of kidney and ureter, unspecified HTN, goal below 140/90 Unspecified essential hypertension Urothelial carcinoma of kidney, right (HCC) Evans's esophagus History of colon polyps Personal history of colonic polyps documented in this encounter Advance Directives Documents on File Type Date Recorded Patient Cupola Patcher Helper Expl anation Advance Directives and Living Will [...] Advance Directives occurred with: Patient Care Teams Principal Secretary Relationship Specialty Start Date End Date Henrik Campbell DO [address] [place] [address] PCP - General Family Medicine 06/02/18 documented as of this encounter
--- OUTSIDE RECORDS SUMMARY | 2023-12-07 22:23 | External Medical Summary ---
Author Name Unknown Address Unknown Organization K01:[facility] - [address] [place] [id number] Laboratory Report Ordering Provider Test Date Status LUCIA GRANT 11/06/2023 08:58:45 Final Observation Date Value Abnormality Reference (Units) Status Bacteria identified in Specimen by Culture 11/06/2023 08:58:45 No significant growth Final Test: Culture, Urine, Quanti tative
Specimen Source: Urine, Clean Catch
Specimen Type: Urine
Specimen Date: 11/06/2023 8:58 AM
Result Date: 11/07/2023 9:06 AM
Result Status: Final result
Resulting Lab: [facility]
[address]
[place] [id number]

CULTURE

No significant growth

null Performing Location [facility] - [address] [facility] [address]
--- OUTSIDE RECORDS SUMMARY | 2023-12-07 22:23 | External Medical Summary | Summary of Care ---
Author Name Unknown Organization [facility] [address] [address] Phone [phone] Care Team Providers Care Construction Safety Manager Name Role Phone Beny Campbell DO Primary Care Provider Reason for Visit * Reason Onset Date Comments Medication Refill 11/05/2023 Encounter Details Date Type Department Care Team (Late st Contact Info) Description 11/05/2023 Refill Family [facility] [address] [place] [address] Beny Campbell DO [address] [place] [address] BPH with obstruction/lower urinary tract symptoms Allergies Active Allergy Reactions Criticality Noted Date Comments Azelastine Unknown 02/01/2021 Onabotulinumtoxina Other (Please comment) High 01/20/2021 Swallowing difficulty after injection documented as of this encounter (statuses as of 11/05/2023) Medications Medication Sig Dispensed Refills Start Date [...] Budesonide 32 MCG/ACT Nasal Suspension Administer 1 [place] into nostril in the morning. 0 Active Emgality 120 MG/ML Subcutaneous Solution Auto-injector (Galcanezumab-gnlm) Inject 120 mg (1mL) under skin as directed once a month. 1 mL 08/30/2022 Active Additional Information Patient not taking.Reported on 08/09/2023 Indomethacin 50 MG Oral Capsule Take one capsule by mouth up to three times per day as needed for head and neck pain 90 Capsule 09/13/2022 Active oxyCODONE HCl 5 MG Oral [...] Oral Tablet (Zofran) 1 Tablet. 0 10/20/2022 Active Ketorolac Tromethamine 10 MG Oral Tablet [...] as needed for Anxiety. 0 07/03/2023 Active Sulfamethoxazole-Tr imethoprim 800-160 MG Oral Tablet (Bactrim DS) Take 1 Tablet by mouth in the morning and 1 Tablet before bedtime. 10 Tablet 0 09/02/2023 Active oxyCODONE-Acetamino phen 5-325 MG Oral Tablet (Percocet) Take 1 Tablet by mouth every 6 hours as needed for Pain, Severe. 12 Tablet 0 09/02/2023 Active Phenazopyridine HCl 200 MG Oral Tablet (Pyridium) Take 1 Tablet by mouth 3 times a day as needed for Other (bladder spasms). After meals. 15 Tablet 0 09/02/2023 Active Finasteride 5 MG Oral Tablet (Proscar)Indication s:BPH with obstruction/lower urinary tract symptoms Take 1 Tablet by mouth in the morning. 90 Tablet 3 09/05/2023 Active Lisinopril-hydroCHL OROthiazide 20-12.5 MG Oral Tablet TAKE 1 TABLET BY MOUTH ONCE DAILY 90 Tablet 1 11/02/2023 Active Tamsulosin HCl 0.4 MG Oral Capsule (Flomax)Indications :BPH with obstruction/lower urinary tract symptoms TAKE ONE CAPSULE BY MOUTH IN THE MORNING 90 Capsule 3 11/05/2023 Active Tamsulosin HCl 0.4 MG Oral Capsule (Flomax)Indications :BPH with obstruction/lower urinary tract symptoms TAKE ONE CAPSULE BY MOUTH IN THE MORNING 90 Capsule 3 11/12/2022 4 Discontinu ed(Refill) documented as of this encounter (statuses as of 11/05/2023) Active Problems Problem Noted Date Diagnosed Date [...] as of this encounter (statuses as of 11/05/2023) Resolved Problems Problem Noted Date Diagnosed Date Resolved Date Viral upper respiratory tract infection 08/06/2018 02/14/2021 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 06/11/2022 Sciatica 01/17/2017 05/28/2017 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 05/28/2017 Nocturia 06/20/2005 05/28/2017 ringworm-left cheek 05/11/2002 05/28/20 17 lesion under left arm 05/11/20022016 Chronic sinusitis 05/28/2017 documented as of this encounter (statuses as of 11/05/2023) Immunizations Name Administration Dates Next Due COVID-19 mRNA, LNP-s, No Pre serve, 2-Dose Series ([employer]) 07/17/2021,11/22/2020,10/26/2020 Pneumococcal Conjugate Vacc, 13 Valent (Prevnar) [...] encounter Miscellaneous Notes * Telephone Encounter - Beny Cmapbell DO - 11/05/2023 11:00 AM EDT Signed Prescriptions: Disp Refills Tamsulosin HCl 0.4 MG Oral Capsule (Flomax)90 Cap*3 Sig: TAKE ONE CAPSULE BY MOUTH IN THE MORNING Authorizing Provider: BENY CAMPBELL * Telephone Encounter - Jaleesa Tate LPN - 11/05/2023 10:43 AM EDT Pending Prescriptions: Disp Refills Tamsulosin HCl 0.4 MG Oral Capsule (Flomax)90 Cap*3 Sig: Take 1 Capsule by mouth. In the morning. * Telephone Encounter - Yvette Mercado OSA - 11/05/2023 10:25 AM EDT Did you pend patient's preferred pharmacy and medication before forwarding?yes Pharmacy: [id number] Pending Prescriptions: Disp Refills Tamsulosin HCl 0.4 MG Oral Capsule (Floma*90 Cap*3 Sig: Take 1 Capsule by mouth. In the morning. Last Visit: 04/08/2023 (in office), Visit date not found (telemedicine) Next Visit: 11/11/2023 If no future appointments scheduled, and last appointment is greater than a year ago, please schedule patient for a follow-up appointment Last date the medication was ordered: 11.12.22 Is this request for a controlled substance?No Urine Drug Screen:No results found for this or any previous visit. Patient Phone Numbers Labs: Lab Results Component Value Date/Time CREAT 1.0 07/30/2023 11:38 AM CREAT 0.82 09/24/2022 12:00 AM CREAT 0.9 07/28/2020 09:03 AM POTASSIUM 4.4 03/22/2023 08:20 AM POTASSIUM 4.0 09/24/2022 12:00 AM POTASSIUM 4.1 07/28/2020 09:03 AM TSH 3.03 05/28/2022 12:00 AM TSH 3.41 01/17/2017 01:18 PM LDLCALC 84 05/28/2022 12:00 AM LDLDIRECT 80 03/22/2023 08:20 AM ALT 39 03/22/2023 08:20 AM ALT 55 (H) 05/09/2020 12:32 PM HGBA1C 6.3 (H) 03/22/2023 08:20 AM HGBA1C 5.7 05/28/2022 12:00 AM documented in this encounter Plan of Treatment Upcoming Encounters Date Type Department Care Team (Latest Contact Info) Description 11/08/2023 3:00 PM EDT Telemedicine Psychiatry, [place] [address] [facility] [place] [address] Princess Kwon MD [address] [facility] [place] [address] 11/11/2023 1:20 PM EDT Office Visit Family [facility] [address] [facility] [place] [address] Beny Campbell DO [address] [facility] [place] [address] 11/13/2023 1:15 PM EDT Telemedicine Urology [place]y Serrano [address] [place] [address] [place] [address] Roberto Edwards MD [address] [place] [address] [place] [address] 7, [facility] Ex Rm [address] [place] [address] 11/27/2023 8:10 AM EDT Hospital Encounter OR [facility], Operating Room, [facility] - 4th Floor [address] [place] [address] Roberto Edwards MD [address] [place] [address] [place] [address] 11/27/2023 8:10 AM EDT - 11/27/2023 12:04 PM EDT Surgery OR GL, Operating Room, [facility] - 4th Floor [address] [place] [address] Roberto Edwards MD [address] [place] [address] [place] [address] LAPAROSCOPIC NEPHRECTOMY TOTAL URETERECTOMY 12/02/2023 1:00 PM EDT Nurse Only Urology, [facility] [address] [place] [address] [facility] Nurse Urology [facility] [address] [place] [address] 12/09/2023 3:15 PM EDT Office Visit Urology, [facility] [address] [place] [address] Roberto Edwards MD [address] [place] [address] [place] [address] 01/22/2024 8:00 AM EDT Hospital Encounter ENDO O[facility], Endoscopy Room [facility] [address] [place] [phone] Delfina Butcher DO [address] [place] [address] 01/22/2024 8:00 AM EDT - 01/22/2024 9:00 AM EDT Surgery ENDO [facility], Endoscopy Room [facility] [address] [place] [id number] Delfina Butcher, DO [address] [place] [address] COLONOSCOPY FLEXIBLE PROXIMAL DIAGNOSTIC Scheduled Procedures Name [...] this encounter Medical Devices Implanted Type Area Bolt Labeler Device Identifier Shelf Expiration Date Model / Serial / Lot Lens Intraoc 19.5 - [id number] - [id number] Implanted:Qty: 1 on 12/07/2021 by Eulogio Barrios MD at OR [facility] Left: Eye [employer] 07/25/2026 [id number] / [id number] / [id number] Lens Intraoc 19.5 - [id number] - [id number] Implanted:Qty: 1 on 12/19/2021 by Eulogio Barrios MD at OR [facility] Right: Eye [employer] 07/25/2026 [id number] / [id number] / [id number] documented as of this encounter Visit Diagnoses Diagnosis 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
--- OUTSIDE RECORDS SUMMARY | 2023-12-07 22:23 | External Medical Summary ---
Author Name Unknown Address Unknown Organization [id number] [place] [address] [facility] [address] Laboratory Report Ordering Provider Test Date Status KEITH SWAN 11/06/2023 08:56:44 Final Observation Date Value Abnormality Reference (Units ) Status Triglyceride 11/06/2023 08:56:44 278 Above high normal <=174 (mg/dL) Final Triglyceride Reference Range s (mg/dL):
<150 Acceptable
150-174 Borderline high
175-499 High
>=500 Very high Cholesterol 11/06/2023 08:56:44 159 <200 (mg /dL) Final Total Cholesterol Reference Ranges (mg/dL):
<200 Desirable
200-239 Borderline high
>=240 High HDL 11/06/2023 08:56:44 42 >39 (mg/dL ) Final HDL Cholesterol Reference Ra nges (mg/dL):
>=60 High (Desirable)
<50 Low (Undesirable) For Females
<40 Low (Undesirable) For Males NON-HDL CHOLESTEROL 11/06/2023 08:56:44 117 <=159 (mg/dL) Final Non-HDL Cholesterol Referenc e Range (mg/dL):
<100 Target level for high risk ASCVD patient
<130 Optimal for general population
130-159 Near optimal for general population
160-189 Borderline High
190-219 High
>=220 Very High Performing Location [facility] [place] [address] [facility] [address]
--- OUTSIDE RECORDS SUMMARY | 2023-12-07 22:23 | External Medical Summary ---
Author Name Unknown Address Unknown Organization [id number]:[facility] [place] [address] - [address] [place] [address] Laboratory Report Ordering Provider Test Date Status LUCIA GRANT 11/06/2023 08:56:44 Final Warfarin Therapy
INR: 2 .0-3.0 conventional anticoagulation
INR: 2.5- 3.5 high intensity anticoagulation Observation Date Value Abnormality Reference (Units ) Status PT 11/06/2023 08:56:44 14.3 11.6-15.2 (seconds) Final INR 11/06/2023 08:56:44 1.1 0.8-1.2 Final Performing Location [facility] [place] [address] - [address] [place] [address]
--- OUTSIDE RECORDS SUMMARY | 2023-12-07 22:23 | External Medical Summary ---
Author Name Unknown Address Unknown Organization K01[place] [place] [facility] [place] [address] [place] [address] Laboratory Report Ordering Provider Test Date Status KEITH SWAN 11/06/2023 08:58:45 Final Normal: <30 mg/g creatinine< br/>High: 30-300 mg/g creatinine
Very High: >300 mg/g creatinine
Nephrotic: >2200 mg/g creatinine Observation Date Value Abnormality Reference (Units ) Status Albumin, Urine 11/06/2023 08:58:45 21.18 (mg/dL) Final Creatinine, Urine 11/06/2023 08:58:45 148 (mg/dL) Final Albumin/Creatinine [Mass Ratio] in Urine 11/06/2023 08:58:45 143 Above high normal <30 (mg/g Creat) Final Performing Location [facility] [place] [facility] [place] [address] [place] [address]
--- OUTSIDE RECORDS SUMMARY | 2023-12-07 22:23 | External Medical Summary ---
Author Name Unknown Address Unknown Organization K0G:[facility] [address] - [address] [place] [address] Laboratory Report Ordering Provider Test Date Status KEITH SWAN 11/06/2023 08:56:44 Final Observation Date Value Abnormality Reference (Units ) Status BUN 11/06/2023 08:56:44 20 6-20 (mg/dL) Final Creatinine 11/06/2023 08:56:44 0.9 0.6-1.2 (mg/dL) Final Glomerular filtration rate/1.73 sq M.predicted [Volume Rate/Area] in Serum, Plasma or Blood by Creatinine-based formula (CKD-EPI) 11/06/2023 08:56:44 86 >=60 (mL/min) Final eGFR is calculated based on the CKD-EPI 2020 equation SODIUM 11/06/2023 08:56:44 140 135-146 (m mol/L) Final Potassium 11/06/2023 08:56:44 4.1 3.5-5.1 (m mol/L) Final Cl 11/06/2023 08:56:44 105 98-107 (mm ol/L) Final CO2 11/06/2023 08:56:44 24 22-32 (mmo l/L) Final Anion gap 11/06/2023 08:56:44 11 7-15 (mmol /L) Final Glucose 11/06/2023 08:56:44 123 Above high normal 70 -120 (mg/dL) Final Albumin 11/06/2023 08:56:44 4.1 3.8-5.0 (g /dL) Final AST (Aspartate aminotransferase) 11/06/2023 08:56:44 33 10-50 (U/L) Fin al Alk Phos 11/06/2023 08:56:44 52 35-130 (U/ L) Final Bilirubin, Total 11/06/2023 08:56:44 0.4 <=1 .2 (mg/dL) Final Calcium 11/06/2023 08:56:44 9.2 8.4-10.2 ( mg/dL) Final Protein 11/06/2023 08:56:44 6.4 6.0-8.3 (g /dL) Final ALT (Alanine aminotransferase) 11/06/2023 08:56:44 32 10-50 (U/L) Frederick vaughan Performing Location [facility] [place] [address]
--- OUTSIDE RECORDS SUMMARY | 2023-12-07 22:23 | External Medical Summary | Summary of Care ---
Author Name Unknown Organization [facility] Address [address] [place] [address] Phone [phone] Care Team Providers Care Swing Driver Name Role Phone Henrik Campbell DO Primary Care Provider Encounter Details Date Type Department Care Team (Late st Contact Info) Description 11/08/2023 3:00 PM EDT Telemedicine Psychiatry, [place] [address] [place] [address] Princess Kwon MD [address] [place] [address] FAHAD (generalized anxiety disorder)*; Persistent depressive disorder; Sleep disturbance Allergies Active Allergy Reactions Criticality Noted Date Comments Azelastine Unknown 02/01/2021 Onabotulinumtoxina Other (Please comment) High 01/20/2021 Swallowing difficulty after injection documented as of this encounter (statuses as of 11/08/2023) Medications Medication Sig Dispensed Refills Start Date [...] Budesonide 32 MCG/ACT Nasal Suspension Administer 1 Brinkley into nostril in the morning. 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 06/11/2022 Sciatica 01/17/2017 05/28/2017 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 05/28/2017 Nocturia 06/20/2005 05/28/2017 ringworm-left cheek 05/11/2002 05/28/20 17 lesion under left arm 05/11/20022016 Chronic sinusitis 05/28/2017 documented as of this encounter (statuses as of 11/08/2023) Immunizations Name Administration Dates Next Due COVID-19 mRNA, LNP-s, No Pre serve, 2-Dose Series ([employer]) 07/17/2021,11/22/2020,10/26/2020 Pneumococcal Conjugate Vacc, 13 Valent (Prevnar) [...] on file documented as of this encounter Patient Instructions * Patient Instructions* Princess Kwon MD - 11/08/2023 3:13 PM EDT Propranolol 15 mg bid Mirtazapine 15 mg qhs Bupropion 50 mg bid Lorazepam 0.25 mg qhs Hydroxyzine 25 mg PRN anxiety (very occasionally) documented in this encounter Progress Notes * Princess Kwon MD - 11/08/2023 3:13 PM EDT OUTPATIENT PSYCHIATRY RETURN VISIT DIVISION OF PSYCHIATRY [facility] Name: Josiah Gutiérrez : 1940 Patient location: HOME. I was not in a hospital or clinic location. After connecting through [employer], patient was verified with two unique identifiers. Patient (or authorized legal site safety representative) was then informed that this was a Telemedicine visit and being conducted confidentially over secure lines. Methods to assure confidentiality were taken. Patient acknowledged consent and understanding of privacy and security of the Telemedicine visit. The patient agreed to participate. CHIEF COMPLAINT: Follow-up for psychiatric medication management. Seen with INTERVAL HISTORY: Medication side effects: no Mood symptoms: feeling 'blah' most of the times because of headaches that are not getting better. Otherwise mood is not bad Suicidal thoughts: no Irritability: no Anxiety:not bad Sleep:not bad Past Medical History: Diagnosis Date Allergic rhinitis Evans's esophagus 09/24/2013 Chronic sinusitis Headache(784.0) chronic frontal headaches lesion under left arm Other ringworm-left cheek Rash Nec ALLERGIES Review of patient's allergies indicates: Allergen Reactions Botox [Onabotulinumtoxina] Other (Please comment) Swallowing difficulty after injection Azelastine Unknown CURRENT MEDICATIONS: Current Outpatient Medications Medication Sig Dispense Refill VITAMIN B-12 100 MCG PO TABS Take 1 Tablet by mouth daily with dinner. VITAMIN D 1000 UNITS PO CAPS Take 1 Capsule by mouth daily with dinner. albuterol (PROAIR HFA) 108 (90 BASE) MCG/ACT inhaler Inhale 2 Puffs by mouth every 4 hours as needed for Cough or Wheezing. With spacer 1 Inhaler 1 zoster vac recomb adjuvanted (SHINGRIX) 50 MCG/0.5ML injection Inject 0.5 mL into a large muscle now and repeat dose in 60 to 180 days (Patient not taking: Reported on 03/23/2022) 1 Each 1 Sildenafil Citrate 100 MG Oral Tablet TAKE ONE TABLET BY MOUTH NEEDED FOR ED Meclizine HCl 25 MG Oral Tablet (Antivert) Take 1 Tablet by mouth 3 times a day as needed for Dizziness. 60 Tablet 1 Esomeprazole Magnesium 20 MG Oral Capsule Delayed Release (NexIUM) Take by mouth 1 Capsule daily before breakfast . (Patient taking differently: Take 2 Capsules by mouth daily before breakfast.) 90 Capsule 3 Budesonide 32 MCG/ACT Nasal Suspension Administer 1 Brinkley into nostril in the morning. Emgality 120 MG/ML Subcutaneous Solution Auto-injector (Galcanezumab-[facility]) Inject 120 mg (1mL) under skin as directed once a month. (Patient not taking: Reported on 08/09/2023) 1 mL 11 Indomethacin 50 MG Oral Capsule Take one capsule by mouth up to three times per day as needed for head and neck pain 90 Capsule 11 oxyCODONE HCl 5 MG Oral Capsule (Oxy IR) Take 1 Capsule by mouth every 4 hours as needed. (Patient not taking: Reported on 08/09/2023) Metaxalone 800 MG Oral Tablet Take one tablet by mouth at bedtime and 1/2 to one tablet up to an additional two times daily as needed for neck and head pain (Patient not taking: Reported on 08/27/2023)90 Tablet 11 Mirtazapine 15 MG Oral Tablet (Remeron) Take 1 Tablet by mouth at bedtime. 30 Tablet 5 Rimegepant Sulfate 75 MG Oral Tablet Disintegrating 75 mg. Ondansetron HCl 4 MG Oral Tablet (Zofran) 1 Tablet. Ketorolac Tromethamine 10 MG Oral Tablet (Toradol) 1 Tablet. Propranolol HCl 10 MG Oral Tablet (Inderal) Take 1.5 tablet at 6 am and 1.5 tablet at 2 pm daily 90Tablet 5 buPROPion HCl 100 MG Oral Tablet (Wellbutrin) Take 0.5 Tablets by mouth in the morning and 0.5 Tablets before bedtime. 30 Tablet 5 LORazepam 0.5 MG Oral Tablet (Ativan) Take 0.5 Tablets by mouth every night at bedtime. NO EARLY REFILLS 15 Tablet 5 hydrOXYzine HCl 25 MG Oral Tablet Take 1 Tablet by mouth daily as needed for Anxiety. Sulfamethoxazole-Trimethoprim 800-160 MG Oral Tablet (Bactrim DS) Take 1 Tablet by mouth in the morning and 1 Tablet before bedtime. 10 Tablet 0 oxyCODONE-Acetaminophen 5-325 MG Oral Tablet (Percocet) Take 1 Tablet by mouth every 6 hours as needed for Pain, Severe. 12 Tablet 0 Phenazopyridine HCl 200 MG Oral Tablet (Pyridium) Take 1 Tablet by mouth 3 times a day as needed for Other (bladder spasms). After meals. 15 Tablet 0 Finasteride 5 MG Oral Tablet (Proscar) Take 1 Tablet by mouth in the morning. 90 Tablet 3 Lisinopril-hydroCHLOROthiazide 20-12.5 MG Oral Tablet TAKE 1 TABLET BY MOUTH ONCE DAILY 90 Tablet 1 Tamsulosin HCl 0.4 MG Oral Capsule (Flomax) TAKE ONE CAPSULE BY MOUTH IN THE MORNING 90 Capsule 3 No current facility-administered medications for this visit. Current Outpatient Medications Medication Sig Dispense Refill VITAMIN B-12 100 MCG PO TABS Take 1 Tablet by mouth daily with dinner. VITAMIN D 1000 UNITS PO CAPS Take 1 Capsule by mouth daily with dinner. albuterol (PROAIR HFA) 108 (90 BASE) MCG/ACT inhaler Inhale 2 Puffs by mouth every 4 hours as needed for Cough or Wheezing. With spacer 1 Inhaler 1 zoster vac recomb adjuvanted (SHINGRIX) 50 MCG/0.5ML injection Inject 0.5 mL into a large muscle now and repeat dose in 60 to 180 days (Patient not taking: Reported on 03/23/2022) 1 Each 1 Sildenafil Citrate 100 MG Oral Tablet TAKE ONE TABLET BY MOUTH NEEDED FOR ED Meclizine HCl 25 MG Oral Tablet (Antivert) Take 1 Tablet by mouth 3 times a day as needed for Dizziness. 60 Tablet 1 Esomeprazole Magnesium 20 MG Oral Capsule Delayed Release (NexIUM) Take by mouth 1 Capsule daily before breakfast . (Patient taking differently: Take 2 Capsules by mouth daily before breakfast.) 90 Capsule 3 Budesonide 32 MCG/ACT Nasal Suspension Administer 1 Brinkley into nostril in the morning. Emgality 120 MG/ML Subcutaneous Solution Auto-injector (Galcanezumab-gnlm) Inject 120 mg (1mL) under skin as directed once a month. (Patient not taking: Reported on 08/09/2023) 1 mL 11 Indomethacin 50 MG Oral Capsule Take one capsule by mouth up to three times per day as needed for head and neck pain 90 Capsule 11 oxyCODONE HCl 5 MG Oral Capsule (Oxy IR) Take 1 Capsule by mouth every 4 hours as needed. (Patient not taking: Reported on 08/09/2023) Metaxalone 800 MG Oral Tablet Take one tablet by mouth at bedtime and 1/2 to one tablet up to an additional two times daily as needed for neck and head pain (Patient not taking: Reported on 08/27/2023)90 Tablet 11 Mirtazapine 15 MG Oral Tablet (Remeron) Take 1 Tablet by mouth at bedtime. 30 Tablet 5 Rimegepant Sulfate 75 MG Oral Tablet Disintegrating 75 mg. Ondansetron HCl 4 MG Oral Tablet (Zofran) 1 Tablet. Ketorolac Tromethamine 10 MG Oral Tablet (Toradol) 1 Tablet. Propranolol HCl 10 MG Oral Tablet (Inderal) Take 1.5 tablet at 6 am and 1.5 tablet at 2 pm daily 90Tablet 5 buPROPion HCl 100 MG Oral Tablet (Wellbutrin) Take 0.5 Tablets by mouth in the morning and 0.5 Tablets before bedtime. 30 Tablet 5 LORazepam 0.5 MG Oral Tablet (Ativan) Take 0.5 Tablets by mouth every night at bedtime. NO EARLY REFILLS 15 Tablet 5 hydrOXYzine HCl 25 MG Oral Tablet Take 1 Tablet by mouth daily as needed for Anxiety. Sulfamethoxazole-Trimethoprim 800-160 MG Oral Tablet (Bactrim DS) Take 1 Tablet by mouth in the morning and 1 Tablet before bedtime. 10 Tablet 0 oxyCODONE-Acetaminophen 5-325 MG Oral Tablet (Percocet) Take 1 Tablet by mouth every 6 hours as needed for Pain, Severe. 12 Tablet 0 Phenazopyridine HCl 200 MG Oral Tablet (Pyridium) Take 1 Tablet by mouth 3 times a day as needed for Other (bladder spasms). After meals. 15 Tablet 0 Finasteride 5 MG Oral Tablet (Proscar) Take 1 Tablet by mouth in the morning. 90 Tablet 3 Lisinopril-hydroCHLOROthiazide 20-12.5 MG Oral Tablet TAKE 1 TABLET BY MOUTH ONCE DAILY 90 Tablet 1 Tamsulosin HCl 0.4 MG Oral Capsule (Flomax) TAKE ONE CAPSULE BY MOUTH IN THE MORNING 90 Capsule 3 No current facility-administered medications for this visit. Medication Comments documented by Zoie Cox LPN on 03/21/2017 at 1359. Patient states no change to medication Zoie Cox LPN 03/21/17 RECENT LABS/IMAGING: Recent Results (from the past 2016 hour(s)) CYTOLOGY Collection Time: 09/02/23 1:20 PM Result Value Ref Range Final Diagnosis A. Urine, Renal Pelvis, Cytology: Adequacy: Satisfactory for evaluation. Category: Atypical urothelial cells (Lily classification). Interpretation: Atypical urothelial cells Other: Cellblock: The histological sections of the cellblock preparation show similar findings. B. Urine, Renal Pelvis, Cytology: Adequacy: Satisfactory for evaluation. Category: Low-grade urothelial neoplasm (Lily classification). Interpretation: Low-grade papillary urothelial carcinoma Other: Cellblock: The histological sections of the cellblock preparation show similar findings. C. Renal Pelvis, Brushing: Adequacy: Satisfactory for evaluation. Category: Low-grade urothelial neoplasm (Lily classification). Interpretation: Low-grade papillary urothelial carcinoma Other: Cellblock: The histological sections of the cellblock preparation show similar findings. Cytology Diagnostic Comment No sufficient submucosal stroma is available for assessment of the invasion. Prior Cancer Other[right urothelial mass Gross Description A. Urine, Renal Pelvis. Received in fixative labeled with name:Josiah Gutiérrez and urine, renal pelvis, and verified with the patient's name and date of . Received 10mls of clear green colored fluid. The specimen is prepared for cytospin(s) and cell block at [facility]. The cell block is submitted in cassette A1 and processed at [facility]. / Prepared by: JADON Formalin fixation time: 7 hours B. Urine, Renal Pelvis. Received in fixative labeled with name:Josiah Gutiérrez and urine, renal pelvis, and verified with the patient's name and date of . Received 20mls of brown colored fluid. The specimen is prepared for cytospin(s) and cell block at [facility]. The cell block is submitted in cassette B1 and processed [facility]. / Prepared by: JADON Formalin fixation time: 7 hours C. Renal Pelvis. Received in fixative labeled with name:Josiah Gutiérrez and renal pelvis, and verified with the patient's name and date of . Received 10mls of pink colored fluid with brush. The specimen is prepared for cytospin(s) and cell block at [facility]. The cell block is submitted in cassette V1 and processedat [facility]. / Prepared by: JADON Formalin fixation time: 7 hours Performing Labs Access Clinician screening performed at [facility] ([facility]), [address] [place] [address]. Pathologist sign out performed at [facility] ([facility]), [address] [place] [address]. Photographic images and diagrams represent ritchie findings in this case; they are not intended to replace a complete review of the final diagnostic report. The following statement applies to Flow Cytometry, Histology, In situ Hybridization Assays and Molecular Genetics. This test was developed and performed at [facility] and its performance characteristics determined by [facility]. It has not been cleared or approved by the U.S. Food and Drug Administration. The FDA has determined that such clearance or approval is not necessary. This test is used for clinical purposes. It should not be regarded as investigationalor for research. Special stains, including histochemical stains, and studies using immunologic and SHMUEL methodology (where applicable) are performed with appropriate positive and negative control reactions. SURGICAL PATHOLOGY Collection Time: 09/02/23 1:37 PM Result Value Ref Range Final Diagnosis A. 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 Gross Description A. Renal Pelvis. Received in formalin with a container labeled with "Josiah Gutiérrez", "[id number]", "1940" and " right renal pelvis cold cup biopsy". Received are multiple fragments of bentley-white to translucent tissue measuring 0.5 x 0.2 cm in aggregate. The specimen is filtered into a biopsy bag and submitted incassette A1.Note: Due to the scant size of the specimen, tissue may not survive processing. Gross By: MR Sign Out Location Pathologist sign out performed at [facility] ([facility]), [address] [place] [address]. Photographic images and diagrams represent ritchie findings in this case; they are not intended to replace a complete review of the final diagnostic report. The following statement applies to Flow Cytometry, Histology, In situ Hybridization Assays and Molecular Genetics. This test was developed and performed at [facility] and its performance characteristics determined by [facility]. It has not been cleared or approved by the U.S. Food and Drug Administration. The FDA has determined that such clearance or approval is not necessary. This test is used for clinical purposes. It should not be regarded as investigationalor for research. Special stains, including histochemical stains, and studies using immunologic and SHMUEL methodology (where applicable) are performed with appropriate positive and negative control reactions. PT INR Collection Time: 11/06/23 8:56 AM Result Value Ref Range Prothrombin Time 14.3 11.6 - 15.2 seconds INR 1.1 0.8 - 1.2 COMPREHENSIVE METABOLIC PANEL Collection Time: 11/06/23 8:56 AM Result Value Ref Range BUN 20 6 - 20 mg/dL Creatinine 0.9 0.6 - 1.2 mg/dL Estimated Glomerular Filtration Rate 86 >=60 mL/min Sodium 140 135 - 146 mmol/L Potassium 4.1 3.5 - 5.1 mmol/L Chloride 105 98 - 107 mmol/L CO2 24 22 - 32 mmol/L Anion Gap 11 7 - 15 mmol/L Glucose 123 (H) 70 - 120 mg/dL Albumin 4.1 3.8 - 5.0 g/dL AST 33 10 - 50 U/L Alkaline Phosphatase 52 35 - 130 U/L Bilirubin, Total 0.4 <=1.2 mg/dL Calcium 9.2 8.4 - 10.2 mg/dL Protein 6.4 6.0 - 8.3 g/dL ALT 32 10 - 50 U/L HEMOGLOBIN A1C Collection Time: 11/06/23 8:56 AM Result Value Ref Range Hemoglobin A1C 6.1 (H) 4.0 - 5.6 % Estimated Average Glucose 128 (H) <126 mg/dL LIPID PANEL WITH DIRECT LDL IF TG IS HIGH Collection Time: 11/06/23 8:56 AM Result Value Ref Range Triglycerides 278 (H) <=174 mg/dL Cholesterol 159 <200 mg/dL HDL Cholesterol 42 >39 mg/dL Non-HDL Cholesterol 117 <=159 mg/dL CBC Collection Time: 11/06/23 8:56 AM Result Value Ref Range WBC 8.06 4.00 [...] K/uL MPV 9.1 6.6 - 11.1 fL DIFFERENTIAL, TECHNOLOGIST REVIEW Collection Time: 11/06/23 8:56 AM Result Value Ref Range WBC 8.06 4.00 - 10.80 K/uL Neutrophils % 67.0 40.0 - 75.0 % Lymphocytes % 19.0 18.0 - 42.0 % Monocytes % 10.0 1.0 - 11.0 % Eosinophils % 4.0 0.0 - 6.0 % Absolute Neutrophils 5.40 1.80 - 7.70 K/uL Absolute Lymphocytes 1.53 1.00 - 4.80 K/uL Absolute Monocytes 0.81 0.00 - 1.10 K/uL Absolute Eosinophils 0.32 0.00 - 0.70 K/uL nRBCs LDL CHOLESTEROL (DIRECT MEASURE) Collection Time: 11/06/23 8:56 AM Result Value Ref Range LDL Cholesterol (Direct Measure) 77 <=129 mg/dL CULTURE, URINE, QUANTITATIVE Collection Time: 11/06/23 8:58 AM Specimen: Urine, Clean Catch Result Value Ref Range Culture Growth No significant growth ALBUMIN / CREATININE RATIO, URINE Collection Time: 11/06/23 8:58 AM Result Value Ref Range Albumin, Random Urine 21.18 mg/dL Creatinine, Random Urine 148 mg/dL Albumin / Creatinine Ratio, Urine 143 (H) <30 mg/g Creat VITALS BP Readings from Last 4 Encounters: 09/02/23 149/85 08/07/23 132/64 04/08/23 138/76 11/08/22 108/72 Pulse Readings from Last 4 Encounters: 09/02/23 87 08/07/23 70 04/08/23 72 11/08/22 95 Wt Readings from Last 3 Encounters: 09/02/23 106.6 kg (235 lb) 08/07/23 111.6 kg (246 lb 1.6 oz) 04/08/23 112.9 kg (248 lb 12.8 oz) There is no height or weight on file to calculate BMI. MSE: Appearance: casually dressed and groomed Level of Consciousness and orientation: alert, oriented to time, place, person Attention: appropriate for conversation Eye contact: good Speech: Normal volume, normal rate, normal rhythm. Spontaneous. Motor: no significant psychomotor agitation or retardation, no hyperactivity noted. No evidence of tics, tardive dyskinesia or abnormal muscle movements. Mood: "blah" Affect: constricted, non-labile, Euthymic Thought Process: goal directed and logical Thought Content: Suicidal Ideation: None voiced. Homicidal Ideation: None voiced. Psychosis: No evidence of responding to internal stimuli Insight: good, based on recognition and understanding of mental illness and need for treatment ASSESSMENT AND TREATMENT PLAN: Anxiety symptoms are relatively under control. Depressive symptoms are subsyndromal. Sleep is not bad. His surgery was postponed to early next month. He thinks he is holding up ok in relation to health related stress. He wanted to be seen after surgery to make sure his symptoms continue to be undercontrol. FAHAD (generalized anxiety disorder) (Primary) Persistent depressive disorder Sleep disturbance Follow Up: Return in about 4 weeks (around 12/06/2023). Medications - Patient Instructions Propranolol 15 mg bid Mirtazapine 15 mg qhs Bupropion 50 mg bid Lorazepam 0.25 mg qhs Hydroxyzine 25 mg PRN anxiety (very occasionally) I spent a total of 13 minutes on the date of service in preparation, delivery, and documentation ofthe care provided to Josiah Gutiérrez. Princess Kwon MD Psychiatrist, [facility] 11/08/2023 documented in this encounter Plan of Treatment Upcoming Encounters Date Type Department Care Team (Latest Contact Info) Description 11/11/2023 1:20 PM EDT Office Visit Family [facility] [address] [address] Henrik Campbell, [address] [address] 11/13/2023 1:15 PM EDT Telemedicine Urology Woody Serrano [address] [place] [address] [address] Roberto Edwards MD [address] [place] [address] [address] 7, Telemed [facility] [address] [address] 11/27/2023 8:10 AM EDT Hospital Encounter OR GL, Operating Room, [facility] - 4th Floor [address] [facility] [place] [address] Roberto Edwards MD [address] [place] [address] [address] 11/27/2023 8:10 AM EDT - 11/27/2023 12:04 PM EDT Surgery OR GLH, Operating Room, [facility] - 4th Floor [address] [address] Roberto Edwards MD [address] [place] [address] [address] LAPAROSCOPIC NEPHRECTOMY TOTAL URETERECTOMY 12/02/2023 1:00 PM EDT Nurse Only Urology, [facility] [address] [place] [address] Nurse Joanthan Urology [facility] [address] [place] [address] 12/09/2023 3:15 PM EDT Office Visit Urology, [facility] [address] [place] [address] Roberto Edwards MD [address] [place] [address] [address] 12/12/2023 1:00 PM EDT Telemedicine [facility], [place] [address] [place] [address] Princess Kwon MD [address] [place] [address] 01/22/2024 8:00 AM EDT Hospital Encounter ENDO [facility], Endoscopy Room [facility] [address] [place] [id number] Delfina Butcher DO [address] [place] [address] 01/22/2024 8:00 AM EDT - 01/22/2024 9:00 AM EDT Surgery ENDO [facility], Endoscopy Room [facility] [address] [place] [phone] Delfina Butcher, DO [address] [place] [address] COLONOSCOPY FLEXIBLE PROXIMAL DIAGNOSTIC Scheduled Procedures Name [...] this encounter Medical Devices Implanted Type Area Flake Or Shred Roll Operator Device Identifier Shelf Expiration Date Model / Serial / Lot Lens Intraoc 19.5 - [id number] - [id number] Implanted:Qty: 1 on 12/07/2021 by Eulogio Barrios MD at OR [facility] Left: Eye [employer] 07/25/2026 [id number] / [id number] / [id number] Lens Intraoc 19.5 - [id number] - [id number] Implanted:Qty: 1 on 12/19/2021 by Eulogio Barrios MD at OR [facility] Right: Eye [employer] 07/25/2026 [id number] / [id number] / [id number] documented as of this encounter Visit Diagnoses Diagnosis FAHAD (generalized anxiety disorder)- Primary Generalized anxiety disorder Persistent depressive disorder Sleep disturbance Sleep disturbance, unspecified Urothelial carcinoma of kidney, right (HCC) Evans's esophagus History of colon polyps Personal history of colonic polyps documented in this encounter Advance Directives Documents on File Type Date Recorded Patient Billing Specialist Expl anation Advance Directives and Living Will [...] Advance Directives occurred with: Patient Care Teams Swing Driver Relationship Specialty Start Date End Date Henrik Campbell DO [address] [place] [address] PCP - General Family Medicine 06/02/18 documented as of this encounter
--- OUTSIDE RECORDS SUMMARY | 2023-12-07 22:23 | External Medical Summary ---
Author Name Unknown Address Unknown Organization K01:[facility] [address] [place] [address] Laboratory Report Ordering Provider Test Date Status KEITH SWAN 11/06/2023 08:56:44 Final Observation Date Value Abnormality Reference (Units ) Status LDL, (direct) 11/06/2023 08:56:44 77 <=129 (mg/dL) Final LDL Cholesterol Reference Ra nges (mg/dL):
<70 Target level for high risk ASCVD patient
<100 Optimal for general population
100-129 Near optimal for general population
130-159 Borderline high
160-189 High
>=190 Very high Performing Location [facility] [address] [facility] [address]
--- OUTSIDE RECORDS SUMMARY | 2023-12-07 22:23 | External Medical Summary ---
Author Name Unknown Address Unknown Organization K01:[facility]ORAT[facility] [place] - [address] [facility] [address] Laboratory Report Ordering Provider Test Date Status BENYKEITH 11/06/2023 08:56:44 Final Observation Date Value Abnormality Reference (Units ) Status HbA1C 11/06/2023 08:56:44 6.1 Above high normal 4. 0-5.6 (%) Final The use of HbA1c to monitor glycemic status is based on normal hemoglobin and HbA composition. This test should not be used in patients with abnormal hemoglobin that affects the half life of the red blood cell or the in vivo glycation rates. Glucose, estimated average 11/06/2023 08:56:44 128 Above high normal <126 (mg/dL) Frederick vaughan Performing Location LAB[facility]AT[facility] [place] - [address] [facility] [address]
[2023-12-07 23:02] LABS: Basophils # (auto) 0.09 K/uL (0.00-0.20); Basophils % (auto) 0.7 %; Eosinophils % (auto) 1.7 %; Hematocrit (blood only) 37.5 % (42.0-52.0); Hemoglobin 12.6 g/dl (14.0-18.0); Immature Granulocytes # (auto) 0.33 K/uL (0.01-0.20); Immature Granulocytes % (auto) 2.7 %; Lymphocytes # (auto) 2.04 K/uL (1.20-3.40); Mean Corpuscular Hemoglobin 31.5 pg (25.0-34.0); Mean Corpuscular Hgb Conc 33.6 g/dL (32.0-36.0); Mean Corpuscular Volume 93.8 fL (80.0-100.0); Mean Platelet Volume 9.6 fL (9.4-12.4); Monocytes # (auto) 0.83 K/uL (0.11-0.59); Monocytes % (auto) 6.9 %; Neutrophils # (auto) 8.52 K/uL (1.40-6.50); Platelet Count 312 K/uL (130-400); RDW Coefficient of Variation 12.7 % (11.5-14.5); RDW Standard Deviation 43.6 fL (36.4-46.3); White Blood Count 12.01 K/ul (4.8-10.8)
[2023-12-07] MEDS: OPTIRAY 320 125ml IV ONE (23:03)
[2023-12-07 23:21] LABS: Alanine Aminotransferase 20 U/L (7-52); Albumin Globulin Ratio 1.4 (0.9-2); Albumin Level 3.5 gm/dl (3.4-5.0); Alkaline Phosphatase 41 U/L (34-104); Anion Gap 8 (3-11); Aspartate Aminotransferase 25 U/L (13-39); BUN Creatinine Ratio 9.3 (10-20); Bilirubin,Total 0.4 mg/dl (0.2-1.0); Blood Urea Nitrogen 11 mg/dl (6-23); Calcium 8.5 mg/dl (8.6-10.3); Carbon Dioxide 25 mmol/L (21-32); Chloride 107 mmol/L (98-107); Est GFR (African American) 66.2 ml/min; Est GFR (Non-African American) 57.1 ml/min; Globulin 2.5 gm/dl (2.5-4.0); Glucose 131 mg/dl (70-99(Fasting)); Lipase 39 U/L (11-82); Potassium 3.2 mmol/L (3.5-5.1); Sodium 140 mmol/L (136-145)
[2023-12-07 23:28] LABS: Troponin I High Sensitivity 9.7 pg/ml (0-20)
[2023-12-07 23:36] LABS: Prothrombin Time 11.4 Seconds (9.0-12.0)
--- NOTE | 2023-12-07 23:41 | CT Scan Report ---
Exam(s): CTA CHEST IV Amt: 118 ML EXAM: CT Angiography Chest With Intravenous Contrast CLINICAL HISTORY: Reason for exam: PE. TECHNIQUE: Axial computed tomographic angiography images of the chest with intravenous contrast. CTDI is 53.05 mGy and DLP is 884.93 mGy-cm. Automated exposure control was utilized for the study. A dose lowering technique was utilized adhering to the principles of ALARA. MIP reconstructed images were created and reviewed. COMPARISON: No relevant prior studies available. FINDINGS: Pulmonary arteries: Unremarkable. No pulmonary embolism. Aorta: No acute findings. No thoracic aortic aneurysm. Lungs: Unremarkable. No mass. No consolidation. Pleural space: Unremarkable. No significant effusion. No pneumothorax. Heart: Unremarkable. No cardiomegaly. No significant pericardial effusion. No evidence of RV dysfunction. Bones/joints: No acute fracture. No dislocation. Soft tissues: Unremarkable. Lymph nodes: Unremarkable. No enlarged lymph nodes. IMPRESSION: Normal chest CTA. No pulmonary embolism. Electronically signed by: Adan Orozco MD 12/07/23 23:40 PM
--- NOTE | 2023-12-07 23:55 | Emergency Department Note ---
History of Present Illness General Chief complaint: Wound Dehiscence Stated complaint: BLEEDING FROM KIDNEY/WOUND DEHISCENCE/ANITHA Time Seen by Provider: 12/07/23 22:30 History of Present Illness Maximum Pain Intensity: 4 This 82-year-old male presents ER complaining of bleeding from incision incisional site today. Patient had a nephrectomy done and at [facility] [address] Edwards secondary to renal carcinoma. Patient was discharged on Saturday. 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 He has had 2 of the shots today and then tonight when he was sitting on the couch when he noticed his incision was bleeding. No trauma. He does complain of pain to the right side of the abdomen and some mild shortness of breath. Patient denies chest pain, fevers, vomiting, diarrhea or any other medical complaints. No direct trauma to the area. No heavy lifting. Home Medications Medication Instructions Recorded Confirmed Type cholecalciferol (vitamin D3) 25 1,000 unit PO DAILY 05/12/18 12/08/23 History mcg (1,000 unit) capsule (Vitamin D3) cyanocobalamin (vitamin B-12) 1,000 mcg PO QAM 05/12/18 12/08/23 History 1,000 mcg tablet (Vitamin B-12) fluticasone propionate 50 1 spray intranasal DAILY PRN SINUS 05/12/18 12/08/23 History mcg/actuation nasal CONGESTION spray,suspension (Flonase Allergy Relief) lisinopril 20 1 tab PO QAM 05/12/18 12/08/23 History mg-hydrochlorothiazide 12.5 mg tablet esomeprazole magnesium 40 mg 40 mg PO QAM 03/23/19 12/08/23 History capsule,delayed release finasteride 5 mg tablet 5 mg PO HS 06/21/22 12/08/23 History Wheeled Walker #1 ea 07/30/22 07/30/22 Rx Wheeled Walker #1 ea 07/30/22 07/30/22 Rx albuterol sulfate 90 mcg/actuation 90 mcg inhalation QID PRN sob 09/18/22 12/08/23 History aerosol inhaler lorazepam 0.5 mg tablet 0.25 mg PO HS 09/18/22 12/08/23 History propranolol 10 mg tablet 15 mg PO BID 09/18/22 12/08/23 History tamsulosin 0.4 mg capsule 0.4 mg PO HS 09/18/22 12/08/23 History bupropion HCl 100 mg tablet 50 mg PO BID 10/22/23 12/08/23 History metaxalone 800 mg tablet 800 mg PO QPM 10/22/23 12/08/23 History mirtazapine 15 mg tablet 15 mg PO HS 10/22/23 12/08/23 History budesonide 32 mcg/actuation nasal 1 spray intranasal QAM 12/08/23 12/08/23 History spray docusate sodium 100 mg capsule 100 mg PO BID 12/08/23 12/08/23 History enoxaparin 40 mg/0.4 mL 40 mg subcut BID 12/08/23 12/08/23 History subcutaneous syringe hydroxyzine HCl 25 mg tablet 25 mg PO DAILY PRN Anxiety 12/08/23 12/08/23 History indomethacin 75 mg 75 mg PO DAILY 12/08/23 12/08/23 History capsule,extended release meclizine 25 mg tablet 25 mg PO TID PRN Dizziness 12/08/23 12/08/23 History metaxalone 800 mg tablet 400 - 800 mg PO BID PRN Pain 12/08/23 12/08/23 History metoclopramide HCl 10 mg tablet 10 mg PO Q6H PRN Nausea 12/08/23 12/08/23 History oxycodone 5 mg tablet 5 mg PO Q6H PRN Pain 12/08/23 12/08/23 History rimegepant 75 mg disintegrating 75 mg PO Q2D PRN .head and neck 12/08/23 12/08/23 History tablet pain triamcinolone acetonide 0.1 % 1 applic topical BID PRN Skin 12/08/23 12/08/23 History topical ointment Irritation Allergies Allergy/AdvReac Type Severity Reaction Status Date / Time onabotulinumtoxinA Allergy Severe trouble Verified 12/08/23 00:36 [From Botox] swallowing/ headache azelastine Allergy Intermediate panic Verified 12/08/23 00:36 attack/ depression Past Med/Surg History Medical History 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 following with Dr Edwards at [facility]. Asthma controlled, stable; last rescue inhaler use (uses it for wheezing - ~10/18/23) Prediabetes pt denies History of COVID-19 05/2021- asymptomatic Migraine No longer on Botox treatment secondary to reaction Hearing deficit hearing aids bilat Dysphagia denies choking History of kidney stones Tinnitus Hepatic steatosis Lumbar spinal stenosis BPH (benign prostatic hyperplasia) Chronic tension type headache Cervical stenosis of spinal canal Chronic neck pain Barretts esophagus Follows with [facility] GERD (gastroesophageal reflux disease) controlled, stable per pt Attention deficit disorder (ADD) Anxiety Hypertension controlled, stable per pt Surgical History Status post biopsy of kidney [facility] 08/2023 positive for renal cell carcinoma History of cataract surgery bilateral Status post left knee replacement S/P epidural steroid injection S/P right knee arthroscopy S/P left knee arthroscopy History of colonoscopy with polypectomy History of esophagogastroduodenoscopy (EGD) History of cystoscopy History of lithotripsy History of carpal tunnel release right H/O arthroscopy of shoulder right with bone spur removal Family History Father Cancer Family hx of colon cancer Mother Cancer Sister Rheumatic fever with cardiac involvement Family history of diabetes mellitus Son Family hx of colon cancer Other No family history of adverse response to anesthesia Social History Smoking Status: Former smoker Tobacco Type: Cigarettes Second Hand Exposure: No; Do You Dip or Chew Tobacco: No (quit ); Hx Alcohol Use: Yes Alcohol type: beer Hx Substance Use: No Preferred Language: Nepali Communication Ability: Effective Upholstery Bundler Required: No Beliefs That Will Affect Care: None marital status: Current Living Situation: Spouse Current Living Situation Comment: with spouse current occupational status: retired 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 other: Patient ambulates without assist device, exercises on stationary bike 3 times per week Feels Safe at Home: Yes Assistive Devices: Denture - Upper, Denture - Lower, Glasses and Hearing Aid - Bilateral Review of Systems A total of 10 systems reviewed and were otherwise negative Physical Exam Vital Signs Vital Signs - 24 hr 12/07/23 22:16 12/07/23 22:51 12/07/23 23:21 Temperature 36.5 C Temperature Source Temporal Artery Scan Pulse Rate 82 Pulse Rate [Apical] 86 Pulse Rhythm [Apical] Regular Pulse Strength [Apical] Normal Respiratory Rate 20 18 Respiratory Effort / Characteristics Non-Labored Spontaneous Respiratory Depth Normal Respiratory Pattern Regular Blood Pressure 137/71 Blood Pressure [Right Arm] 142/75 H Blood Pressure Mean 93 Blood Pressure Mean [Right Arm] 97 Blood Pressure Position [Right Arm] Lying Pulse Oximetry 95 96 97 Oxygen Delivery Method Room Air Room Air Room Air Sepsis Recent Fever Within 48 Hours No Sepsis New/Unexplained Change in Mental Status No Sepsis Action Taken by Nursing No Action Required 12/08/23 01:00 Temperature Temperature Source Pulse Rate Pulse Rate [Apical] 79 Pulse Rhythm [Apical] Regular Pulse Strength [Apical] Normal Respiratory Rate 18 Respiratory Effort / Characteristics Non-Labored Spontaneous Respiratory Depth Normal Respiratory Pattern Regular Blood Pressure Blood Pressure [Right Arm] 128/71 Blood Pressure Mean Blood Pressure Mean [Right Arm] 90 Blood Pressure Position [Right Arm] Lying Pulse Oximetry 97 Oxygen Delivery Method Room Air Sepsis Recent Fever Within 48 Hours Sepsis New/Unexplained Change in Mental Status Sepsis Action Taken by Nursing VITALS: Vitals are noted on the nurse's note and reviewed by myself. Vital signs stable. GENERAL: Pleasant male with present, in no acute distress, nondiaphoretic, well-developed well-nourished. SKIN: Capillary reflex less than 2 seconds. HEENT: Normocephalic. PERRLA. EOMI. Nares patent. Mucous membranes moist. Neck is supple without nuchal rigidity. HEART: Regular rate and rhythm LUNGS: Clear to auscultation bilaterally without wheezes, rales or rhonchi. No retractions or accessory muscle use. ABDOMEN: Positive bowel sounds x 4. Normal tympanic percussion. Soft, right lower quadrant with incisional site intact with hematoma and tenderness around the site. Dried blood on the abdomen and on his pants. without masses or organomegaly. Dugan sign negative. No guarding or rebound tenderness. no CVA tenderness MUSCULOSKELETAL: No gross musculoskeletal defects. NEURO: Patient was alert and oriented to person place and time. No focal neurological deficits. Course Administered Medications Discontinued Medications Ioversol (Optiray 320 125ml) 118 ml IV ONCE ONE Stop: 12/07/23 23:11 Last Admin: 12/07/23 23:03 Dose: 118 ml Documented By: JEREMY Medical Decision Making Medical Records Attestation: I reviewed the patient's medical records. Home Medications Current Medication List: was personally reviewed by me Laboratory Data Attestation: I reviewed the patient's lab results. 12/07/23 22:44 12/07/23 22:44 Lab Results 12/07/23 12/07/23 Range/Units 22:44 22:49 WBC 12.01 H (4.8-10.8) K/ul RBC 4.00 L (4.70-6.10) M/uL Hgb 12.6 L (14.0-18.0) g/dl Hct 37.5 L (42.0-52.0) % MCV 93.8 (80.0-100.0) fL MCH 31.5 (25.0-34.0) pg MCHC 33.6 (32.0-36.0) g/dL RDW Std Deviation 43.6 (36.4-46.3) fL RDW Coeff of Moris 12.7 (11.5-14.5) % Plt Count 312 (130-400) K/uL MPV 9.6 (9.4-12.4) fL Immature Gran % (Auto) 2.7 % Neut % (Auto) 71.0 % Lymph % (Auto) 17.0 % Frio % (Auto) 6.9 % Eos % (Auto) 1.7 % Baso % (Auto) 0.7 % Neut # (Auto) 8.52 H (1.40-6.50) K/uL Lymph # (Auto) 2.04 (1.20-3.40) K/uL Frio # (Auto) 0.83 H (0.11-0.59) K/uL Eos # (Auto) 0.20 (0.00-0.50) K/uL Baso # (Auto) 0.09 (0.00-0.20) K/uL Immature Gran # (Auto) 0.33 H (0.01-0.20) K/uL PT 11.4 (9.0-12.0) Seconds INR 1.0 (0.9-1.1) Sodium 140 (136-145) mmol/L Potassium 3.2 L (3.5-5.1) mmol/L Chloride 107 (98-107) mmol/L Carbon Dioxide 25 (21-32) mmol/L Anion Gap 8 (3-11) BUN 11 (6-23) mg/dl Creatinine 1.18 (0.6-1.4) mg/dl Est Cr Clr Drug Dosing Not Reportable Est GFR ( Amer) 66.2 ml/min Est GFR (Non-Af Amer) 57.1 ml/min BUN/Creatinine Ratio 9.3 L (10-20) Glucose 131 H (70-99(Fasting)) mg/dl Calcium 8.5 L (8.6-10.3) mg/dl Total Bilirubin 0.4 (0.2-1.0) mg/dl AST 25 (13-39) U/L ALT 20 (7-52) U/L Alkaline Phosphatase 41 (34-104) U/L Troponin I High Sens 9.7 (0-20) pg/ml Total Protein 6.0 (6.0-8.3) gm/dl Albumin 3.5 (3.4-5.0) gm/dl Globulin 2.5 (2.5-4.0) gm/dl Albumin/Globulin Ratio 1.4 (0.9-2) Lipase 39 (11-82) U/L Urine Color Yellow Urine Appearance Clear (Clear) Urine pH 6.0 (4.5-7.5) Ur Specific [place] 1.025 (1.000-1.030) Urine Protein Trace H (Negative) Urine Glucose (UA) Negative (Negative) Urine Ketones Negative (Negative) Urine Blood Negative (Negative) Urine Nitrite Negative (Negative) Urine Bilirubin Negative (Negative) Urine Urobilinogen Negative (Negative) Ur Leukocyte Esterase Negative (Negative) Blood Type A Positive Antibody Screen NEGATIVE Imaging Data Attestation: I personally reviewed and interpreted this imaging study as follows: Radiologist's Impression: Chest CTA 12/07/23 22:38 Exam(s): CTA CHEST IV Amt: 118 ML EXAM: CT Angiography Chest With Intravenous Contrast CLINICAL HISTORY: Reason for exam: PE. TECHNIQUE: Axial computed tomographic angiography images of the chest with intravenous contrast. CTDI is 53.05 mGy and DLP is 884.93 mGy-cm. Automated exposure control was utilized for the study. A dose lowering technique was utilized adhering to the principles of ALARA. MIP reconstructed images were created and reviewed. COMPARISON: No relevant prior studies available. FINDINGS: Pulmonary arteries: Unremarkable. No pulmonary embolism. Aorta: No acute findings. No thoracic aortic aneurysm. Lungs: Unremarkable. No mass. No consolidation. Pleural space: Unremarkable. No significant effusion. No pneumothorax. Heart: Unremarkable. No cardiomegaly. No significant pericardial effusion. No evidence of RV dysfunction. Bones/joints: No acute fracture. No dislocation. Soft tissues: Unremarkable. Lymph nodes: Unremarkable. No enlarged lymph nodes. IMPRESSION: Normal chest CTA. No pulmonary embolism. Electronically signed by: Adan Orozco MD 12/07/23 23:40 PM Abdomen/Pelvis CT 12/07/23 22:39 Exam(s): CT ABDOMEN + PELVIS With Contrast IV Amt: 118 ML EXAM: CT Abdomen and Pelvis With Intravenous Contrast CLINICAL HISTORY: Reason for exam: RLQ pain, nephrectomy 10 days ago, bleeding. TECHNIQUE: Axial computed tomography images of the abdomen and pelvis with intravenous contrast. CTDI is 27.97 mGy and DLP is 1504.81 mGy-cm. Automated exposure control was utilized for the study. A dose lowering technique was utilized adhering to the principles of ALARA. CONTRAST: Patient received 118 ML of IV contrast COMPARISON: No relevant prior studies available. FINDINGS: Lung bases: Unremarkable. No mass. No consolidation. ABDOMEN: Liver: Fatty infiltration of liver. Gallbladder and bile ducts: Unremarkable. No calcified stones. No ductal dilation. Pancreas: Unremarkable. No mass. No ductal dilation. Spleen: Unremarkable. No splenomegaly. Adrenals: Unremarkable. No mass. Kidneys and ureters: Postoperative changes right nephrectomy. Subtle inflammatory changes in the right nephrectomy bed which is expected given the patient's recent postoperative state. Air within the urinary bladder diverticulosis without evident diverticulitis. Stomach and bowel: See above. PELVIS: Appendix: No findings to suggest acute appendicitis. Bladder: See above. Reproductive: Unremarkable as visualized. ABDOMEN and PELVIS: Intraperitoneal space: Unremarkable. No free air. No significant fluid collection. Bones/joints: No acute fracture. No dislocation. Soft tissues: Unremarkable. Vasculature: Unremarkable. No abdominal aortic aneurysm. Lymph nodes: Unremarkable. No enlarged lymph nodes. Other findings: No evidence of active contrast extravasation identified on this exam. IMPRESSION: Postoperative changes right nephrectomy without evidence of active contrast extravasation to suggest active hemorrhage. Electronically signed by: Adan Orozco MD 12/08/23 00:06 AM MDM Narrative Prior records/ancillary studies reviewed. Triage Nursing notes reviewed. Additional history obtained from family. The patient's history was concerning for abdominal pain, shortness of breath and bleeding around incisional site Differential diagnosis: Etiologies such as postsurgical complication, appendicitis, diverticulitis, PUD, biliary pathology, UTI, pancreatitis, obstruction, mesenteric ischemia, aortic pathology, infections, inflammatory bowel disease, renal colic, as well as others were entertained. Physical examination findings: As above. ER treatment provided: An order was placed for continuous cardiac monitoring. The monitor shows a rate of 60-100 with a sinus rhythm per my Independent interpretation. Patient was emergently sent to CAT scan for rule out surgical complication IV fluids, patient was typed and crossmatched and i-STAT was ordered. Patient was consented to blood if warranted On reassessment the patient felt better. Diagnostics interpreted by me: ECG: Ordered for weakness EKG: Normal sinus, right bundle, no acute ST-T wave changes. Impression normal sinus rhythm with a right bundle branch block independently interpreted by myself The labs Independently Interpreted by myself revealed mild anemia. Type and screen pending Mild leukocytosis Imaging studies: Imaging as above Consultation: A consultation was placed with the hospitalist. The case was discussed and diagnostics were reviewed. The patient was evaluated in the ER for further treatment. Exam and history seem consistent with bleeding from recent nephrectomy site. No active bleeding on imaging. Patient is on Lovenox. I did opt to have him admitted for observation. Medicine was consulted and case was discussed. He will be admitted to the medical service for pain and bleeding from recent nephrectomy. Patient is agreeable. By the evaluation outlined above emergent etiologies such as appendicitis, diverticulitis, PUD, biliary pathology, UTI, pancreatitis, obstruction, mesenteric ischemia, aortic pathology, infections, inflammatory bowel disease, renal colic, as well as others were deemed relatively unlikely. The pt informed about the findings as listed above. All questions were answered and pleased with the treatment. The chart was completed utilizing netomat voice recognition software. Grammatical errors, random word insertions, pronoun errors, and incomplete sentences are an occassional consequence of this system due to software limitations, ambient noise, and hardware issues. Any formal questions or concerns about the content, text, or information contained within the body of this dictation should be directly addressed to the physician medical office assistant instructor for clarification. Impression & Plan Bleeding from wound, Post-op pain Discharge Plan Visit Data Chief Complaint: Wound Dehiscence Stated Complaint: BLEEDING FROM KIDNEY/WOUND DEHISCENCE/ANITHA ED Provider: Manuel Suresh ED Midlevel Provider: Brittany Morrissey Discharge Problem: Bleeding from wound, Post-op pain Patient Disposition: Admitted As Inpatient Condition: Good Forms Stand Alone Forms: [facility] beSUCCESS Prescriptions Prescriptions: No Action (DME) Wheeled Walker Misc See Rx Instructions .MEDSUPPLY Qty: 1 0RF Rx Instructions: As directed (DME) Wheeled Walker Misc See Rx Instructions .MEDSUPPLY Qty: 1 0RF Rx Instructions: As directed esomeprazole magnesium 40 mg Capsule,Delayed Release(Dr/Ec) 40 mg PO QAM lisinopril-hydrochlorothiazide 20-12.5 mg Tablet 1 tab PO QAM cyanocobalamin (vitamin B-12) [Vitamin B-12] 1,000 mcg Tablet 1,000 mcg PO QAM cholecalciferol (vitamin D3) [Vitamin D3] 1,000 unit Capsule 1,000 unit PO DAILY fluticasone propionate [Flonase Allergy Relief] 50 mcg/actuation Somis,Suspension 1 spray INTRANASAL DAILY PRN (Reason: SINUS CONGESTION) finasteride 5 mg tablet 5 mg PO HS propranolol 10 mg tablet 15 mg PO BID Rx Instructions: TAKE AT 6AM AND 2PM lorazepam 0.5 mg Tablet 0.25 mg PO HS tamsulosin 0.4 mg capsule 0.4 mg PO HS albuterol sulfate 90 mcg/actuation HFA aerosol inhaler 90 mcg INHALATION QID PRN (Reason: sob) bupropion HCl 100 mg Tablet 50 mg PO BID mirtazapine 15 mg Tablet 15 mg PO HS metaxalone 800 mg Tablet 800 mg PO QPM indomethacin 75 mg Capsule, Extended Release 75 mg PO DAILY Rx Instructions: 12/07/23 this med currently on hold metaxalone 800 mg Tablet 400 - 800 mg PO BID PRN (Reason: Pain) Rx Instructions: 1/2 to one tablet up to two times daily, as needed, for head and neck pain. rimegepant 75 mg Tablet,Disintegrating 75 mg PO Q2D PRN (Reason: .head and neck pain) enoxaparin 40 mg/0.4 mL syringe 40 mg subcut BID oxycodone 5 mg tablet 5 mg PO Q6H PRN (Reason: Pain) docusate sodium 100 mg Capsule 100 mg PO BID metoclopramide HCl 10 mg Tablet 10 mg PO Q6H PRN (Reason: Nausea) hydroxyzine HCl 25 mg Tablet 25 mg PO DAILY PRN (Reason: Anxiety) meclizine 25 mg Tablet 25 mg PO TID PRN (Reason: Dizziness) budesonide 32 mcg/actuation Somis,Non-Aerosol 1 spray INTRANASAL QAM triamcinolone acetonide 0.1 % Ointment 1 applic TOPICAL BID PRN (Reason: Skin Irritation) Referrals Referrals: Henrik Campbell DO [Primary Care Provider] -
--- NOTE | 2023-12-08 00:07 | CT Scan Report ---
Exam(s): CT ABDOMEN + PELVIS With Contrast IV Amt: 118 ML EXAM: CT Abdomen and Pelvis With Intravenous Contrast CLINICAL HISTORY: Reason for exam: RLQ pain, nephrectomy 10 days ago, bleeding. TECHNIQUE: Axial computed tomography images of the abdomen and pelvis with intravenous contrast. CTDI is 27.97 mGy and DLP is 1504.81 mGy-cm. Automated exposure control was utilized for the study. A dose lowering technique was utilized adhering to the principles of ALARA. CONTRAST: Patient received 118 ML of IV contrast COMPARISON: No relevant prior studies available. FINDINGS: Lung bases: Unremarkable. No mass. No consolidation. ABDOMEN: Liver: Fatty infiltration of liver. Gallbladder and bile ducts: Unremarkable. No calcified stones. No ductal dilation. Pancreas: Unremarkable. No mass. No ductal dilation. Spleen: Unremarkable. No splenomegaly. Adrenals: Unremarkable. No mass. Kidneys and ureters: Postoperative changes right nephrectomy. Subtle inflammatory changes in the right nephrectomy bed which is expected given the patient's recent postoperative state. Air within the urinary bladder diverticulosis without evident diverticulitis. Stomach and bowel: See above. PELVIS: Appendix: No findings to suggest acute appendicitis. Bladder: See above. Reproductive: Unremarkable as visualized. ABDOMEN and PELVIS: Intraperitoneal space: Unremarkable. No free air. No significant fluid collection. Bones/joints: No acute fracture. No dislocation. Soft tissues: Unremarkable. Vasculature: Unremarkable. No abdominal aortic aneurysm. Lymph nodes: Unremarkable. No enlarged lymph nodes. Other findings: No evidence of active contrast extravasation identified on this exam. IMPRESSION: Postoperative changes right nephrectomy without evidence of active contrast extravasation to suggest active hemorrhage. Electronically signed by: Adan Orozco MD 12/08/23 00:06 AM
--- NOTE | 2023-12-08 00:21 | Emergency Department Note ---
ED Visit Note The patient was seen and examined with kayla. I agree with the history, physical and findings. Please see the note for disposition and details. .
[2023-12-08 01:11] LABS: Appearance Urine Clear (Clear); Bilirubin Urine Negative (Negative); Blood Urine Negative (Negative); Color Urine Yellow; Glucose Urine UA Negative (Negative); Ketones Urine Negative (Negative); Leukocyte Esterase Urine Negative (Negative); Nitrite Urine Negative (Negative); Protein Urine Trace (Negative); Specific Gravity Urine 1.025 (1.000-1.030); Urobilinogen Urine Negative (Negative)
--- NOTE | 2023-12-08 01:12 | History & Physical Report ---
Date of Service December 08, 2023 Assessment & Plan (1) Bleeding from wound: Plan: 82-year-old male with past medical history significant for prediabetes, allergic rhinitis, mild intermittent asthma, hypertension, Evans's esophagus, GERD, BPH, sciatica, frequent headaches, migraines, cervicalgia, bilateral occipital neuralgia, anxiety, FAHAD, depression, urothelial carcinoma of right kidney and on November 27, 2023 patient had s/p hand-assisted laparoscopic nephro ureterectomy and was discharged on December 03 and on December 05 [place] was taken out and is supposed to take Lovenox shots for 20 days which he started just today and took took 1 dose in the morning and 1 in the night when the nephrectomy incision site opened and and had a lot of bleeding which prompted him to come to the ER. Currently bleeding is stopped. Denies any abdominal pain. Denies any he maturia. Normal bowel movements. Appetite is okay. Denies any chest pain or shortness of breath. Has some headache. No runny nose. Afebrile. States he has ambulatory dysfunction because of his back problems. Currently hemodynamics are okay. Bleeding from the wound Recent hand-assisted laparoscopic right nephro ureterectomy and incision opened up and bled. Will hold Lovenox Currently bleeding stopped Imaging studies okay Hemoglobin 12.6 Will monitor in the hospital Consult urology for further recommendations Urethral carcinoma of the right kidney S/p hand-assisted laparoscopic nephro ureterectomy on November 27, 2023 Follow-up with urology Prediabetes Will monitor Asthma Continue home inhalers Hypertension Continue on lisinopril/hydrochlorothiazide and propranolol Will monitor BPH On Flomax and finasteride Monitor for urinary retention Chronic pain Continue home pain medications General anxiety disorder Depression On bupropion, hydroxyzine as needed, lorazepam and Remeron History of migraines Will monitor DVT prophylaxis SCDs for now Disposition Observation in med/telemetry Full code History of Present Illness Chief Complaint: Recent right nephrectomy, wound dehiscence and bleeding Primary Care Provider: Henrik Campbell DO 82-year-old male with past medical history significant for prediabetes, allergic rhinitis, mild intermittent asthma, hypertension, Evans's esophagus, GERD, BPH, sciatica, frequent headaches, migraines, cervicalgia, bilateral occipital neuralgia, anxiety, FAHAD, depression, urothelial carcinoma of right kidney and on November 27, 2023 patient had s/p hand-assisted laparoscopic nephro ureterectomy and was discharged on December 03 and on December 05 [place] was taken out and is supposed to take Lovenox shots for 20 days which he started just today and took took 1 dose in the morning and 1 in the night when the nephrectomy incision site opened and and had a lot of bleeding which prompted him to come to the ER. Currently bleeding is stopped. Denies any abdominal pain. Denies any hematuria. Normal bowel movements. Appetite is okay. Denies any chest pain or shortness of breath. Has some headache. No runny nose. Afebrile. States he has ambulatory dysfunction because of his back problems. Currently hemodynamics are okay. Past medical history. As mentioned above. Past surgical history. Colonoscopy cystoscopy utero with biopsy cystoscopy utero with lithotripsy EGD EGD with endoscopic ultrasound left TKA. Right laparoscopic nephrectomy and total ureterectomy, bilateral cataract surgery. Sinus surgery. Social history. . Former smoker. Quit 35 years ago. Alcohol rarely. No drug use Family history. Father had cancer. Mother had cancer. Allergies Allergy/AdvReac Type Severity Reaction Status Date / Time onabotulinumtoxinA Allergy Severe trouble Verified 12/08/23 00:36 [From Botox] swallowing/ headache azelastine Allergy Intermediate panic Verified 12/08/23 00:36 attack/ depression Home Medications Medication Instructions Recorded Confirmed Type cholecalciferol (vitamin D3) 25 1,000 unit PO DAILY 05/12/18 12/08/23 History mcg (1,000 unit) capsule (Vitamin D3) cyanocobalamin (vitamin B-12) 1,000 mcg PO QAM 05/12/18 12/08/23 History 1,000 mcg tablet (Vitamin B-12) fluticasone propionate 50 1 spray intranasal DAILY PRN SINUS 05/12/18 12/08/23 History mcg/actuation nasal CONGESTION spray,suspension (Flonase Allergy Relief) lisinopril 20 1 tab PO QAM 05/12/18 12/08/23 History mg-hydrochlorothiazide 12.5 mg tablet esomeprazole magnesium 40 mg 40 mg PO QAM 03/23/19 12/08/23 History capsule,delayed release finasteride 5 mg tablet 5 mg PO HS 06/21/22 12/08/23 History Wheeled Walker #1 ea 07/30/22 07/30/22 Rx Wheeled Walker #1 ea 07/30/22 07/30/22 Rx albuterol sulfate 90 mcg/actuation 90 mcg inhalation QID PRN sob 09/18/22 12/08/23 History aerosol inhaler lorazepam 0.5 mg tablet 0.25 mg PO HS 09/18/22 12/08/23 History propranolol 10 mg tablet 15 mg PO BID 09/18/22 12/08/23 History tamsulosin 0.4 mg capsule 0.4 mg PO HS 09/18/22 12/08/23 History bupropion HCl 100 mg tablet 50 mg PO BID 10/22/23 12/08/23 History metaxalone 800 mg tablet 800 mg PO QPM 10/22/23 12/08/23 History mirtazapine 15 mg tablet 15 mg PO HS 10/22/23 12/08/23 History budesonide 32 mcg/actuation nasal 1 spray intranasal QAM 12/08/23 12/08/23 History spray docusate sodium 100 mg capsule 100 mg PO BID 12/08/23 12/08/23 History enoxaparin 40 mg/0.4 mL 40 mg subcut BID 12/08/23 12/08/23 History subcutaneous syringe hydroxyzine HCl 25 mg tablet 25 mg PO DAILY PRN Anxiety 12/08/23 12/08/23 History indomethacin 75 mg 75 mg PO DAILY 12/08/23 12/08/23 History capsule,extended release meclizine 25 mg tablet 25 mg PO TID PRN Dizziness 12/08/23 12/08/23 History metaxalone 800 mg tablet 400 - 800 mg PO BID PRN Pain 12/08/23 12/08/23 History metoclopramide HCl 10 mg tablet 10 mg PO Q6H PRN Nausea 12/08/23 12/08/23 History oxycodone 5 mg tablet 5 mg PO Q6H PRN Pain 12/08/23 12/08/23 History rimegepant 75 mg disintegrating 75 mg PO Q2D PRN .head and neck 12/08/23 12/08/23 History tablet pain triamcinolone acetonide 0.1 % 1 applic topical BID PRN Skin 12/08/23 12/08/23 History topical ointment Irritation Past Med/Surg History Medical History 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 following with Dr Edwards at [facility]. Asthma controlled, stable; last rescue inhaler use (uses it for wheezing - ~10/18/23) Prediabetes pt denies History of COVID-19 05/2021- asymptomatic Migraine No longer on Botox treatment secondary to reaction Hearing deficit hearing aids bilat Dysphagia denies choking History of kidney stones Tinnitus Hepatic steatosis Lumbar spinal stenosis BPH (benign prostatic hyperplasia) Chronic tension type headache Cervical stenosis of spinal canal Chronic neck pain Barretts esophagus Follows with [facility] GERD (gastroesophageal reflux disease) controlled, stable per pt Attention deficit disorder (ADD) Anxiety Hypertension controlled, stable per pt Surgical History Status post biopsy of kidney [facility] 08/2023 positive for renal cell carcinoma History of cataract surgery bilateral Status post left knee replacement S/P epidural steroid injection S/P right knee arthroscopy S/P left knee arthroscopy History of colonoscopy with polypectomy History of esophagogastroduodenoscopy (EGD) History of cystoscopy History of lithotripsy History of carpal tunnel release right H/O arthroscopy of shoulder right with bone spur removal Family History Father Cancer Family hx of colon cancer Mother Cancer Sister Rheumatic fever with cardiac involvement Family history of diabetes mellitus Son Family hx of colon cancer Other No family history of adverse response to anesthesia Social History Smoking Status: Former smoker Tobacco Type: Cigarettes Second Hand Exposure: No; Do You Dip or Chew Tobacco: No; Hx Alcohol Use: Yes Alcohol type: beer Hx Substance Use: No Preferred Language: Italian Communication Ability: Effective [employer] Required: No Beliefs That Will Affect Care: None marital status: Current Living Situation: Spouse Current Living Situation Comment: with spouse current occupational status: retired 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 ENT- oropharynx clear Neck- supple, no JVD. Lungs- clear to auscultation no wheezing or crackles Heart- regular rate and rhythm; no murmur, no gallop. Abdomen- normal bowel sounds, soft, nontender, recent hand assisted laparoscopic right nephroureterectomy incision open-currently no drainage seen Extremities- no pretibial edema, no erythema seen. Neuro- alert, oriented PERRL,no facial palsy; no dysarthria Results & Data Results & Data Vital Signs (Past 12 Hours) Vital Signs Temp Pulse Pulse Resp BP BP Pulse Ox 12/07/23 23:21 86 18 142/75 H 97 12/07/23 22:51 96 12/07/23 22:16 36.5 C 82 20 137/71 95 O2 Del Method 12/07/23 23:21 Room Air 12/07/23 22:51 Room Air 12/07/23 22:16 Room Air Diagnostic Findings Laboratory Results WBC 12.01 K/ul (4.8-10.8) H 12/07/23 22:44 RBC 4.00 M/uL (4.70-6.10) L 12/07/23 22:44 Hgb 12.6 g/dl (14.0-18.0) L 12/07/23 22:44 Hct 37.5 % (42.0-52.0) L 12/07/23 22:44 MCV 93.8 fL (80.0-100.0) 12/07/23 22:44 MCH 31.5 pg (25.0-34.0) 12/07/23 22:44 MCHC 33.6 g/dL (32.0-36.0) 12/07/23 22:44 RDW Std Deviation 43.6 fL (36.4-46.3) 12/07/23 22:44 RDW Coeff of Moris 12.7 % (11.5-14.5) 12/07/23 22:44 Plt Count 312 K/uL (130-400) 12/07/23 22:44 MPV 9.6 fL (9.4-12.4) 12/07/23 22:44 Immature Gran % (Auto) 2.7 % 12/07/23 22:44 Neut % (Auto) 71.0 % 12/07/23 22:44 Lymph % (Auto) 17.0 % 12/07/23 22:44 [place] % (Auto) 6.9 % 12/07/23 22:44 Eos % (Auto) 1.7 % 12/07/23 22:44 Baso % (Auto) 0.7 % 12/07/23:44 Neut # (Auto) 8.52 K/uL (1.40-6.50) H 12/07/23:44 Lymph # (Auto) 2.04 K/uL (1.20-3.40) 12/07/23 22:44 [place] # (Auto) 0.83 K/uL (0.11-0.59) H 12/07/23 22:44 Eos # (Auto) 0.20 K/uL (0.00-0.50) 12/07/23 22:44 Baso # (Auto) 0.09 K/uL (0.00-0.20) 12/07/23 22:44 Immature Gran # (Auto) 0.33 K/uL (0.01-0.20) H 12/07/23 22:44 PT 11.4 Seconds (9.0-12.0) 12/07/23 22:44 INR 1.0 (0.9-1.1) 12/07/23 22:44 Sodium 140 mmol/L (136-145) 12/07/23 22:44 Potassium 3.2 mmol/L (3.5-5.1) L 12/07/23 22:44 Chloride 107 mmol/L (98-107) 12/07/23 22:44 Carbon Dioxide 25 mmol/L (21-32) 12/07/23 22:44 Anion Gap 8 (3-11) 12/07/23 22:44 BUN 11 mg/dl (6-23) 12/07/23 22:44 Creatinine 1.18 mg/dl (0.6-1.4) 12/07/23 22:44 Est Cr Clr Drug Dosing Not Reportable 12/07/23 22:44 Est GFR ( Amer) 66.2 ml/min 12/07/23 22:44 Est GFR (Non-Af Amer) 57.1 ml/min 12/07/23 22:44 BUN/Creatinine Ratio 9.3 (10-20) L 12/07/23 22:44 Glucose 131 mg/dl (70-99(Fasting)) H 12/07/23 22:44 Calcium 8.5 mg/dl (8.6-10.3) L 12/07/23 22:44 Total Bilirubin 0.4 mg/dl (0.2-1.0) 12/07/23 22:44 AST 25 U/L (13-39) 12/07/23 22:44 ALT 20 U/L (7-52) 12/07/23 22:44 Alkaline Phosphatase 41 U/L (34-104) 12/07/23 22:44 Troponin I High Sens 9.7 pg/ml (0-20) 12/07/23 22:44 Total Protein 6.0 gm/dl (6.0-8.3) 12/07/23 22:44 Albumin 3.5 gm/dl (3.4-5.0) 12/07/23 22:44 Globulin 2.5 gm/dl (2.5-4.0) 12/07/23 22:44 Albumin/Globulin Ratio 1.4 (0.9-2) 12/07/23 22:44 Lipase 39 U/L (11-82) 12/07/23 22:44 Urine Color Yellow 12/07/23 22:44 Urine Appearance Clear (Clear) 12/07/23 22:44 Urine pH 6.0 (4.5-7.5) 12/07/23 22:44 Ur Specific [place] 1.025 (1.000-1.030) 12/07/23 22:44 Urine Protein Trace (Negative) H 12/07/23 22:44 Urine Glucose (UA) Negative (Negative) 12/07/23 22:44 Urine Ketones Negative (Negative) 12/07/23 22:44 Urine Blood Negative (Negative) 12/07/23 22:44 Urine Nitrite Negative (Negative) 12/07/23 22:44 Urine Bilirubin Negative (Negative) 12/07/23 22:44 Urine Urobilinogen Negative (Negative) 04/13/24 22:44 Ur Leukocyte Esterase Negative (Negative) 12/07/23 22:44 Urine RBC 0-2 /hpf (0-2) 12/07/23 22:44 Urine WBC 11-20 /hpf (0-5) H 12/07/23 22:44 Ur Epithelial Cells 0-2 /hpf (0-2) 12/07/23 22:44 Urine Bacteria 4+ (None Seen) H 12/07/23 22:44 Blood Type A Positive 12/07/23 22:49 Antibody Screen NEGATIVE 12/07/23 22:49 Impressions Chest CTA 12/07/23 22:38 Exam(s): CTA CHEST IV Amt: 118 ML EXAM: CT Angiography Chest With Intravenous Contrast CLINICAL HISTORY: Reason for exam: PE. TECHNIQUE: Axial computed tomographic angiography images of the chest with intravenous contrast. CTDI is 53.05 mGy and DLP is 884.93 mGy-cm. Automated exposure control was utilized for the study. A dose lowering technique was utilized adhering to the principles of ALARA. MIP reconstructed images were created and reviewed. COMPARISON: No relevant prior studies available. FINDINGS: Pulmonary arteries: Unremarkable. No pulmonary embolism. Aorta: No acute findings. No thoracic aortic aneurysm. Lungs: Unremarkable. No mass. No consolidation. Pleural space: Unremarkable. No significant effusion. No pneumothorax. Heart: Unremarkable. No cardiomegaly. No significant pericardial effusion. No evidence of RV dysfunction. Bones/joints: No acute fracture. No dislocation. Soft tissues: Unremarkable. Lymph nodes: Unremarkable. No enlarged lymph nodes. IMPRESSION: Normal chest CTA. No pulmonary embolism. Electronically signed by: Adan Orozco MD 12/07/23 23:40 PM Abdomen/Pelvis CT 12/07/23 22:39 Exam(s): CT ABDOMEN + PELVIS With Contrast IV Amt: 118 ML EXAM: CT Abdomen and Pelvis With Intravenous Contrast CLINICAL HISTORY: Reason for exam: RLQ pain, nephrectomy 10 days ago, bleeding. TECHNIQUE: Axial computed tomography images of the abdomen and pelvis with intravenous contrast. CTDI is 27.97 mGy and DLP is 1504.81 mGy-cm. Automated exposure control was utilized for the study. A dose lowering technique was utilized adhering to the principles of ALARA. CONTRAST: Patient received 118 ML of IV contrast COMPARISON: No relevant prior studies available. FINDINGS: Lung bases: Unremarkable. No mass. No consolidation. ABDOMEN: Liver: Fatty infiltration of liver. Gallbladder and bile ducts: Unremarkable. No calcified stones. No ductal dilation. Pancreas: Unremarkable. No mass. No ductal dilation. Spleen: Unremarkable. No splenomegaly. Adrenals: Unremarkable. No mass. Kidneys and ureters: Postoperative changes right nephrectomy. Subtle inflammatory changes in the right nephrectomy bed which is expected given the patient's recent postoperative state. Air within the urinary bladder diverticulosis without evident diverticulitis. Stomach and bowel: See above. PELVIS: Appendix: No findings to suggest acute appendicitis. Bladder: See above. Reproductive: Unremarkable as visualized. ABDOMEN and PELVIS: Intraperitoneal space: Unremarkable. No free air. No significant fluid collection. Bones/joints: No acute fracture. No dislocation. Soft tissues: Unremarkable. Vasculature: Unremarkable. No abdominal aortic aneurysm. Lymph nodes: Unremarkable. No enlarged lymph nodes. Other findings: No evidence of active contrast extravasation identified on this exam. IMPRESSION: Postoperative changes right nephrectomy without evidence of active contrast extravasation to suggest active hemorrhage. Electronically signed by: Adan Orozco MD 12/08/23 00:06 AM ECG Additional Comments: ECG. Normal sinus rhythm with rate of 86. Right bundle branch block. T wave inversion in inferior leads Code Status & VTE Plan VTE Prophylaxis Plan VTE Prophylaxis will be ordered: Yes
[2023-12-08 01:16] LABS: Epithelial Cell Urine 0-2 /hpf (0-2)
[2023-12-08 01:17] LABS: Bacteria Urine 4+ (None Seen); RBC Urine 0-2 /hpf (0-2)
[2023-12-08] MEDS ORDERED: MECLIZINE HCL 25 MG TAB PO PRN (02:36)
[2023-12-08] MEDS ORDERED: oxyCODONE HCL IR 5 MG TAB (IMMEDIATE RELEASE) PO PRN (02:36)
[2023-12-08] MEDS ORDERED: ALBUTEROL HFA 8 GM INHALER INH PRN (02:36)
[2023-12-08] MEDS ORDERED: FLUTICASONE PROPIONATE NA SPR 16 GM BTL PRN (02:36)
[2023-12-08] MEDS ORDERED: METAXALONE 800 MG TABLET PO PRN (02:36)
[2023-12-08] MEDS ORDERED: NITROGLYCERIN SL 0.4 MG/TAB TAB SL PRN (02:36)
[2023-12-08] MEDS ORDERED: POLYETHYLENE (MIRALAX) 17 GM PACK PO PRN (02:36)
[2023-12-08] MEDS ORDERED: hydrOXYzine HCl 25 MG TAB PO PRN (02:36)
[2023-12-08] MEDS ORDERED: ACETAMINOPHEN 325 MG TAB PO PRN (02:36)
--- NOTE | 2023-12-08 03:05 | Urology Consultation ---
<Statement entered by Dino He MD - 12/08/23 09:38> I have discussed Mr. Gutiérrez's case with Eliud Mosley PA-C and agree with the above documentation. Patient is currently hemodynamically stable and pain- free. No evidence of any ongoing drainage from his incision. I am not able to express any fluid with palpation. Hemoglobin decreased slightly from on arrival (12.6 down to 11.5) although this may be more dilutional rather than reflective of ongoing blood loss. No evidence of any extravasation on his CT scan and his fascia appears to be intact. Will hold off on procedural intervention for now, okay for a diet. Urinalysis was notable for 4+ bacteria, would recommend empiric antibiotics and obtaining a urine culture to further guide antibiotic choice. -Dino He MD. Date of Consultation December 08, 2023 Assessment & Plan (1) Bleeding from wound: Patient has been admitted on the hospital service. From a urologic perspective we recommend the following: At the present time there is not appear to be any visible active bleeding. There is also no evidence of active bleeding on CT scan I suspect the patient may have had some subcutaneous blood/hematoma that may have expressed from his incision that has now stopped Would recommend following serial labs Avoid anticoagulants or antiplatelets at this time. If patient's labs remained stable consideration can be given to resuming the patient's Lovenox shots History of Present Illness Attending Physician: Fernandez Rizvi MD History of Present Illness This is an 82-year-old male who had a right laparoscopic hand-assisted nephrectomy by Dr. Roberto Edwards on 11/27/2023 at [facility]. Patient says that he was doing well postoperatively. The patient notes that he was walking up a flight of steps when he felt a wet sensation on his operative side and he looked down and saw a great deal of dark blood on his clothing. Because of this he presented the emergency department. The patient denies any chest pain or shortness of breath and he denies any lightheadedness or dizziness. He denies any abdominal pain. He denies any nausea or vomiting. He denies any back or flank pain. He denies any difficulty urinating. The patient notes that approximately 2 days ago he did suffer a fall landing face first using his hands to brace his fall. I question the patient about his fall and he said that this was merely a mechanical fall as he tripped over a carpet in his house and did best of his knowledge he did not sustain any injury. Concerning the blood that he found on his clothing he assumed that it was coming from one of his surgical incisions but did note that his surgical incisions did appear to be intact. He denies any fevers, shakes, or chills. He denies any nausea or vomiting. Of note, the patient is taking Lovenox injections. Since arrival to the hospital the patient has had labs and imaging which independent reviewed. A CT scan of the chest showed no evidence of pulmonary emboli. CT scan of the abdomen pelvis showed postoperative changes of a right nephrectomy without any evidence of active contrast extravasation to suggest an active hemorrhage. There is no intraperitoneal free air or significant intraperitoneal fluid collections. Labs included a CBC were white blood cell count was elevated at 12.0. Hemoglobin and hematocrit were 12.6 and 37.5. Platelet count was normal. Coagulation studies are normal. Chemistry profile showed sodium and potassium are 140 and 3.2. BUN and creatinine are nonelevated. Urinalysis showed 11-20 white blood cells per high-power field and 4+ bacteria. At the time my interview the patient was resting comfortably bed he was in no distress. Allergies Allergy/AdvReac Type Severity Reaction Status Date / Time onabotulinumtoxinA Allergy Severe trouble Verified 12/08/23 00:36 [From Botox] swallowing/ headache azelastine Allergy Intermediate panic Verified 12/08/23 00:36 attack/ depression Home Medications Medication Instructions Recorded Confirmed Type cholecalciferol (vitamin D3) 25 1,000 unit PO DAILY 05/12/18 12/08/23 History mcg (1,000 unit) capsule (Vitamin D3) cyanocobalamin (vitamin B-12) 1,000 mcg PO QAM 05/12/18 12/08/23 History 1,000 mcg tablet (Vitamin B-12) fluticasone propionate 50 1 spray intranasal DAILY PRN SINUS 05/12/18 12/08/23 History mcg/actuation nasal CONGESTION spray,suspension (Flonase Allergy Relief) lisinopril 20 1 tab PO QAM 05/12/18 12/08/23 History mg-hydrochlorothiazide 12.5 mg tablet esomeprazole magnesium 40 mg 40 mg PO QAM 03/23/19 12/08/23 History capsule,delayed release finasteride 5 mg tablet 5 mg PO HS 06/21/22 12/08/23 History Wheeled Walker #1 ea 07/30/22 07/30/22 Rx Wheeled Walker #1 ea 07/30/22 07/30/22 Rx albuterol sulfate 90 mcg/actuation 90 mcg inhalation QID PRN sob 09/18/22 12/08/23 History aerosol inhaler lorazepam 0.5 mg tablet 0.25 mg PO HS 09/18/22 12/08/23 History propranolol 10 mg tablet 15 mg PO BID 09/18/22 12/08/23 History tamsulosin 0.4 mg capsule 0.4 mg PO HS 09/18/22 12/08/23 History bupropion HCl 100 mg tablet 50 mg PO BID 10/22/23 12/08/23 History metaxalone 800 mg tablet 800 mg PO QPM 10/22/23 12/08/23 History mirtazapine 15 mg tablet 15 mg PO HS 10/22/23 12/08/23 History budesonide 32 mcg/actuation nasal 1 spray intranasal QAM 12/08/23 12/08/23 History spray docusate sodium 100 mg capsule 100 mg PO BID 12/08/23 12/08/23 History enoxaparin 40 mg/0.4 mL 40 mg subcut BID 12/08/23 12/08/23 History subcutaneous syringe hydroxyzine HCl 25 mg tablet 25 mg PO DAILY PRN Anxiety 12/08/23 12/08/23 History indomethacin 75 mg 75 mg PO DAILY 12/08/23 12/08/23 History capsule,extended release meclizine 25 mg tablet 25 mg PO TID PRN Dizziness 12/08/23 12/08/23 History metaxalone 800 mg tablet 400 - 800 mg PO BID PRN Pain 12/08/23 12/08/23 History metoclopramide HCl 10 mg tablet 10 mg PO Q6H PRN Nausea 12/08/23 12/08/23 History oxycodone 5 mg tablet 5 mg PO Q6H PRN Pain 12/08/23 12/08/23 History rimegepant 75 mg disintegrating 75 mg PO Q2D PRN .head and neck 12/08/23 12/08/23 History tablet pain triamcinolone acetonide 0.1 % 1 applic topical BID PRN Skin 12/08/23 12/08/23 History topical ointment Irritation Patient History Medical History 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 following with Dr Edwards at [facility]. Asthma controlled, stable; last rescue inhaler use (uses it for wheezing - ~10/18/23) Prediabetes pt denies History of COVID-19 05/2021- asymptomatic Migraine No longer on Botox treatment secondary to reaction Hearing deficit hearing aids bilat Dysphagia denies choking History of kidney stones Tinnitus Hepatic steatosis Lumbar spinal stenosis BPH (benign prostatic hyperplasia) Chronic tension type headache Cervical stenosis of spinal canal Chronic neck pain Barretts esophagus Follows with [facility] GERD (gastroesophageal reflux disease) controlled, stable per pt Attention deficit disorder (ADD) Anxiety Hypertension controlled, stable per pt Surgical History Status post biopsy of kidney [facility] 08/2023 positive for renal cell carcinoma History of cataract surgery bilateral Status post left knee replacement S/P epidural steroid injection S/P right knee arthroscopy S/P left knee arthroscopy History of colonoscopy with polypectomy History of esophagogastroduodenoscopy (EGD) History of cystoscopy History of lithotripsy History of carpal tunnel release right H/O arthroscopy of shoulder right with bone spur removal Family History Father Cancer Family hx of colon cancer Mother Cancer Sister Rheumatic fever with cardiac involvement Family history of diabetes mellitus Son Family hx of colon cancer Other No family history of adverse response to anesthesia Social History Smoking Status: Former smoker Tobacco Type: Cigarettes Second Hand Exposure: No; Do You Dip or Chew Tobacco: No; Hx Alcohol Use: Yes Alcohol type: beer Hx Substance Use: No Preferred Language: Turkish Communication Ability: Effective Vegetable Cutter Required: No Beliefs That Will Affect Care: None marital status: Current Living Situation: Spouse Current Living Situation Comment: with spouse current occupational status: retired 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 Other Information That Helps Us Care for You: No other: Patient ambulates without assist device, exercises on stationary bike 3 times per week Feels Safe at Home: Yes Safety Concerns: Feels Safe At This Time Assistive Devices: Denture - Upper, Denture - Lower, Glasses and Hearing Aid - Bilateral Review of Systems Constitutional: no fever and no chills Eyes: + corrective lenses Ear, Nose, Mouth, Throat: no ear pain Respiratory: no cough Cardiovascular: no chest pain Gastrointestinal: no abdominal pain, no nausea and no vomiting Genitourinary: no dysuria Musculoskeletal: no back pain Integumentary: as per Subjective / HPI Neurologic: no localized weakness Physical Exam Physical Exam: Patient's abdomen was examined and patient had multiple incisions from his nephrectomy. On the right side he had to what appeared to be laparoscopic incisions that are intact with Dermabond. There is a small amount of ecchymosis surrounding the incisions. The patient had a larger accessory incision inferior to his laparoscopic incisions. There is some ecchymosis around this incision. The incision did appear to be intact with Dermabond and there are no open areas. The area around the incision is soft without any evidence of fluid collection or hematoma. There is no active bleeding from any of his incisions. Constitutional: WD/WN, vitals as above Eyes: no conjunctival abnormality ENMT: Ears: no hearing impairment and no external ear abnormality Mouth: no oropharynx abnormality Neck: trachea midline Respiratory: normal respiratory effort; no respiratory distress and no labored breathing Cardiovascular: Rate/Rhythm: regular rate and regular rhythm Gastrointestinal (Abdomen): Abdomen is soft and nondistended. There is minimal to no pain with palpation other than some soreness near his and surgical incisions. Please see above for description of surgical incisions. Musculoskeletal: No calf tenderness Skin: no rashes Neurologic: moves all extremities Psychiatric: A+Ox3, euthymic affect Genitourinary: No CVA tenderness bilaterally Results & Data Vital Signs (Past 12 Hours) Vital Signs Temp Pulse Pulse Resp BP BP Pulse Ox 12/08/23 02:40 36.5 C 80 18 183/74 H 95 12/08/23 01:04 79 12/08/23 01:00 79 18 128/71 97 12/07/23 23:21 86 18 142/75 H 97 12/07/23 22:51 96 12/07/23 22:16 36.5 C 82 20 137/71 95 O2 Del Method 12/08/23 02:40 Room Air 12/08/23 01:04 12/08/23 01:00 Room Air 12/07/23 23:21 Room Air 12/07/23 22:51 Room Air 12/07/23 22:16 Room Air PG Care Time/CCT Total # of Minutes Spent Total Time Spent with Patient: Total time spent is greater than 50% in coordination of care (as documented) at patient's floor/unit and/or counseling patient: Coding Level of Care Code None Diagnoses Bleeding from wound T14.8XXA
[2023-12-08] MEDS: SODIUM CHLORIDE 0.9% 1,000 ML IV SCH (03:14)
[2023-12-08] MEDS: PROPRANOLOL HCL 10 MG TAB PO SCH (05:50)
[2023-12-08 06:59] LABS: iSTAT Creatinine 1.2 mg/dl (0.6-1.3); iSTAT Hemoglobin 12.2 g/dl (14.0-18.0); iSTAT Ionized Calcium 1.05 mmol/l (1.12-1.32); iSTAT Potassium 3.1 mmol/L (3.3-5.0)
--- NOTE | 2023-12-08 07:18 | Electrocardiogram Report ---
Test Reason : Blood Pressure : / mmHG Vent. Rate : 086 BPM Atrial Rate : 086 BPM P-R Int : 166 ms QRS Dur : 154 ms QT Int : 404 ms P-R-T Axes : 052 007 003 degrees QTc Int : 483 ms Normal sinus rhythm Right bundle branch block Abnormal ECG When compared with ECG of 24-SEP-2022 11:53, T wave inversion now evident in Inferior leads T wave inversion now evident in Anterior leads Confirmed by Donavan Mccrary ([id number]) on 12/08/2023 7:18:37 AM Referred By: REFERRED SELF Confirmed By:Thad Mccrary
[2023-12-08 07:26] LABS: Basophils # (auto) 0.07 K/uL (0.00-0.20); Basophils % (auto) 0.7 %; Eosinophils # (auto) 0.21 K/uL (0.00-0.50); Hematocrit (blood only) 33.6 % (42.0-52.0); Hemoglobin 11.5 g/dl (14.0-18.0); Immature Granulocytes % (auto) 2.8 %; Lymphocytes # (auto) 1.68 K/uL (1.20-3.40); Lymphocytes % (auto) 15.8 %; Mean Corpuscular Hemoglobin 31.4 pg (25.0-34.0); Mean Corpuscular Hgb Conc 34.2 g/dL (32.0-36.0); Mean Corpuscular Volume 91.8 fL (80.0-100.0); Mean Platelet Volume 9.7 fL (9.4-12.4); Monocytes # (auto) 0.88 K/uL (0.11-0.59); Monocytes % (auto) 8.3 %; Neutrophils % (auto) 70.4 %; Platelet Count 257 K/uL (130-400); RDW Coefficient of Variation 12.8 % (11.5-14.5); RDW Standard Deviation 42.8 fL (36.4-46.3); Red Blood Count 3.66 M/uL (4.70-6.10); White Blood Count 10.64 K/ul (4.8-10.8)
[2023-12-08 07:34] LABS: Anion Gap 6 (3-11); BUN Creatinine Ratio 11.2 (10-20); Blood Urea Nitrogen 12 mg/dl (6-23); Calcium 8.1 mg/dl (8.6-10.3); Carbon Dioxide 26 mmol/L (21-32); Chloride 109 mmol/L (98-107); Creatinine Clr Calc Pharmacy 65.6 ml/min; Est GFR (African American) 74.5 ml/min; Est GFR (Non-African American) 64.3 ml/min; Glucose 106 mg/dl (70-99(Fasting)); Magnesium 1.9 mg/dl (1.7-2.4); Sodium 141 mmol/L (136-145)
[2023-12-08] MEDS: buPROPion HCl 100 MG TABLET PO SCH (08:35)
[2023-12-08] MEDS: CHOLECALCIFEROL 25 MCG (1000 UNITS) TAB PO SCH (08:36)
[2023-12-08] MEDS: CYANOCOBALAMIN (B-12) 500 MCG TABLET PO SCH (08:36)
[2023-12-08] MEDS: LISINOPRIL/HCTZ 20/12.5MG 1 TAB TAB PO SCH (08:36)
[2023-12-08] MEDS: PANTOprazole 40 MG TAB PO SCH (08:36)
[2023-12-08] MEDS: DOCUSATE SODIUM 100 MG CAP PO SCH (08:36)
[2023-12-08] MEDS ORDERED: [UNRECOGNIZED DRUG - REMARK] INTNAS SCH (09:00)
--- NOTE | 2023-12-08 10:44 | Ultrasound Report ---
BILATERAL LOWER EXTREMITY VENOUS DOPPLER HISTORY: Acute pain and swelling of the right lower extremity Rule out DVT COMPARISON STUDY: None. FINDINGS: There is normal compressibility, flow, and augmentation within the bilateral lower extremit y deep venous systems. IMPRESSION: No DVT within the right or left lower extremity. ACT 112: Negative or not required by law. Electronically signed by: Esteban Cage M.D. 12/08/2023 10:43 AM
[2023-12-08] MEDS: cefTRIAXone SODIUM 2,000 MG in DEXTROSE 5 % MINI-B 50 ML IV SCH (10:59)
--- NOTE | 2023-12-08 13:28 | Communication Note ---
Date of Service: December 08, 2023 Patient seen and examined at bedside. He is lying comfortably on the bed No signs or symptoms of bleeding. History of S/p hand-assisted laparoscopic nephro ureterectomy on November 27, 2023 CT abdomen and pelvis reviewed; no evidence of acute extravasation on the CT scan. Bleeding was thought likely secondary to subcutaneous blood/hematoma. I discussed with his surgeon Dr. Edwards over [place] text; he agrees with holding off on further anticoagulation for DVT prophylaxis Venous duplex did not show any DVT Urine culture suggestive for infection; awaiting culture results. On ceftriaxone On physical exam; Constitutional: WD/WN, vitals as above, NAD, sitting up in bed, pleasant, conversing easily Respiratory: normal respiratory effort, lungs clear to auscultation, no wheeze, rales, rhonchi. Normal insp/exp effort, no accessory muscle use Cardiovascular: RRR, no murmur, no edema Vessels: no JVD or carotid bruit Chest: normal inspection of chest Abdomen: Incision clean dry and intact with no signs or symptoms of acute bleeding. Musculoskeletal: no cyanosis or clubbing, extremities motor strength 5/5 Skin: no rashes, warm and dry normal turgor Neurologic: PERRL, EOMI, accommodation nl, no face palsy, no dysarthria CN's II- XI intact bilaterally and moves all extremities Psychiatric: A+Ox3, euthymic affect
[2023-12-08] MEDS: METAXALONE 800 MG TABLET PO SCH (20:40)
[2023-12-08] MEDS: LORazepam 0.5 MG TAB PO SCH (20:40)
[2023-12-08] MEDS: FINASTERIDE 5 MG TAB PO SCH (20:40)
[2023-12-08] MEDS: TAMSULOSIN HCL 0.4 MG CAP PO SCH (20:41)
[2023-12-08] MEDS: MIRTAZAPINE TAB 15 MG TAB PO SCH (20:41)
[2023-12-09 07:50] LABS: Basophils # (auto) 0.06 K/uL (0.00-0.20); Basophils % (auto) 0.6 %; Eosinophils # (auto) 0.18 K/uL (0.00-0.50); Eosinophils % (auto) 1.7 %; Hematocrit (blood only) 34.4 % (42.0-52.0); Hemoglobin 11.5 g/dl (14.0-18.0); Immature Granulocytes # (auto) 0.23 K/uL (0.01-0.20); Immature Granulocytes % (auto) 2.2 %; Lymphocytes # (auto) 1.54 K/uL (1.20-3.40); Lymphocytes % (auto) 14.8 %; Mean Corpuscular Hemoglobin 31.1 pg (25.0-34.0); Mean Corpuscular Hgb Conc 33.4 g/dL (32.0-36.0); Mean Platelet Volume 9.3 fL (9.4-12.4); Monocytes # (auto) 0.85 K/uL (0.11-0.59); Monocytes % (auto) 8.1 %; Neutrophils # (auto) 7.57 K/uL (1.40-6.50); Neutrophils % (auto) 72.6 %; Platelet Count 250 K/uL (130-400); RDW Coefficient of Variation 12.9 % (11.5-14.5); RDW Standard Deviation 43.6 fL (36.4-46.3); White Blood Count 10.43 K/ul (4.8-10.8)
[2023-12-09 08:05] LABS: BUN Creatinine Ratio 11.5 (10-20); Calcium 8.2 mg/dl (8.6-10.3); Creatinine Clr Calc Pharmacy 61.1 ml/min; Est GFR (African American) 69.3 ml/min; Est GFR (Non-African American) 59.8 ml/min; Potassium 3.4 mmol/L (3.5-5.1)
--- NOTE | 2023-12-09 10:27 | Urology Progress Note ---
Date of Service December 09, 2023 Assessment & Plan (1) Bleeding from wound: Plan 83yo M who is s/p right laparoscopic hand-assisted nephrectomy by Dr. Roberto Edwards on 11/27/2023 at [facility] admitted with bleeding from incision site. Pt afebrile and hemodynamically stable. Labs today reviewed - hemoglobin stable 11.5, normal renal function, no leukocytosis No evidence of any extravasation to suggest active hemorrhage on his CT scan and his fascia appears to be intact. There is no evidence of any ongoing drainage from his incision. I am not able to express any fluid with palpation at the time of exam. Continue with conservative management and monitoring. Can apply/change dressings as needed. Urine culture prelim with probable enterococcus. Continue antibiotics and tailor as culture data becomes available. No procedural intervention indicated at this time. Encouraged patient to follow-up with his primary urologist on discharge. Urology will follow along. Admission and Anticipated Discharge Date Admission Date: December 08, 2023 Subjective Pt examined at bedside this AM. Awake, resting in bed on arrival. No acute distress. Denies f/c/n/v. Denies abdominal, flank or suprapubic pain. ABD pad to RLQ incision site. No evidence of any ongoing drainage from his incision. Reports he is voiding without issue. Review of Systems Constitutional: as per Subjective / HPI Gastrointestinal: as per Subjective / HPI Genitourinary: + as per Subjective / HPI Physical Exam Constitutional: no acute distress Respiratory: no respiratory distress and no labored breathing Gastrointestinal (Abdomen): Percussion/Palpation: abdomen soft; abdomen nontender ABD pad to RLQ incision site with small amount (quarter sized) of drainage on pad. No pain with palpation. No evidence of any ongoing drainage from his incision. I am not able to express any fluid with palpation. There is ecchymosis surrounding this incision. The incision did appear to be intact with Dermabond and there are no open areas. The area around the incision is soft without any evidence of fluid collection or hematoma. There are additional what appears to be laparoscopic incisions sites that are intact with Dermabond. Neurologic: awake Psychiatric: A+Ox3, euthymic affect Results & Data Vital Signs (Past 12 Hours) Vital Signs Temp Pulse Pulse Resp BP Pulse Ox O2 Del Method 12/09/23 08:04 Room Air 12/09/23 07:20 36.8 C 60 12 145/80 H 96 Room Air 12/09/23 05:47 57 L 18 143/66 H 96 Room Air 12/08/23 23:45 36.5 C 67 18 129/70 96 Room Air 12/08/23 23:09 61 PG Care Time/CCT Total # of Minutes Spent Total Time Spent with Patient: Total time spent is greater than 50% in coordination of care (as documented) at patient's floor/unit and/or counseling patient: Coding Level of Care Code 43961 SUB INP/OBS CARE 2/35MIN Diagnoses Bleeding from wound T14.8XXA
--- NOTE | 2023-12-09 14:56 | Hospitalist Progress Note ---
Date of Service December 09, 2023 Assessment & Plan (1) Bleeding from wound: Plan: 82-year-old male with past medical history significant for prediabetes, allergic rhinitis, mild intermittent asthma, hypertension, Evans's esophagus, GERD, BPH, sciatica, frequent headaches, migraines, cervicalgia, bilateral occipital neuralgia, anxiety, FAHAD, depression, urothelial carcinoma of right kidney and on November 27, 2023 patient had s/p hand-assisted laparoscopic nephro ureterectomy and was discharged on December 03 Postoperative bleeding from incision site Recent hand-assisted laparoscopic right nephro ureterectomy and incision on November 27, 2023 Patient underwent surgery has been sent about on 2023 Patient was started Lovenox 1 day prior as DVT prophylaxis Hemoglobin is 12.6 on admission; 11.5 Mg/ DL today. Patient's bleeding stopped after holding Lovenox Discussion was done with Dr. Roberto Edwards over [place] text regarding patient hospitalization. As per him, just expected post-op bruising and subq ooze. Not unexpected. Pressure and dressing as needed. Acute UTI Urine analysis suggestive of infection Urine culture growing probable Enterococcus Ceftriaxone changed to ampicillin. Await final culture/sensitivity Will make decision regarding antibiotics depending on patient's clinical status and culture results Urethral carcinoma of the right kidney S/p hand-assisted laparoscopic nephro ureterectomy on November 27, 2023 Follow-up with urology Prediabetes Monitor blood glucose Asthma Continue home inhalers Hypertension Continue on lisinopril/hydrochlorothiazide and propranolol Will monitor BPH On Flomax and finasteride Monitor for urinary retention Chronic pain Continue home pain medications General anxiety disorder Depression On bupropion, hydroxyzine as needed, lorazepam and Remeron History of migraines Will monitor DVT prophylaxis SCDs for now Disposition Observation in med/telemetry Full code Time spent evaluating patient, direct bedside care, chart review, placing orders, interpretation of diagnostic studies, discussion with consultants, patient, and family members, as well as other required patient management activities is 50-minute Please note the above document was generated using voice recognition software. It may contain grammatical, syntax or spelling errors. Any formal questions or concerns about the content, text or information contained within the body of this dictation should be directly addressed to the provider for clarification Admission and Anticipated Discharge Date Admission Date: December 08, 2023 Subjective Patient seen and examined at bedside. Patient reportedly had some more bleeding from the incision site in the morning. When seen at bedside; bleeding had resolved. Patient reports that bleeding was not excessive as previously. Review of Systems Review of Systems: All systems reviewed & are unremarkable except as noted in Subjective Physical Exam Physical Exam: General-Not in distress Head- atraumatic Lungs- clear to auscultation no wheezing or crackles Heart- regular rate and rhythm; no murmur, no gallop. Abdomen- normal bowel sounds, soft, nontender, recent hand assisted laparoscopic right nephroureterectomy incision open-currently no drainage seen Extremities- no pretibial edema, no erythema seen. Neuro- alert, oriented PERRL,no facial palsy; no dysarthria Results & Data Results & Data Vital Signs (Past 12 Hours) Vital Signs Temp Pulse Pulse Resp BP Pulse Ox O2 Del Method 12/09/23 11:13 36.4 C L 67 14 128/74 95 Room Air 12/09/23 11:00 58 L 12/09/23 08:04 Room Air 12/09/23 07:20 36.8 C 60 12 145/80 H 96 Room Air 12/09/23 05:47 57 L 18 143/66 H 96 Room Air
[2023-12-09] MEDS: AMPICILLIN 2,000 MG in SODIUM CHLOR 0.9% MINI-B 100 ML IV SCH (14:59)
[2023-12-09] MEDS: traZODone HCL 50 MG TAB PO ONE (20:43)
--- NOTE | 2023-12-10 10:11 | Urology Progress Note ---
Date of Service December 10, 2023 Assessment & Plan (1) Bleeding from wound: Plan 83yo M who is s/p right laparoscopic hand-assisted nephrectomy by Dr. Roberto Edwards on 11/27/2023 at [facility] admitted with bleeding from incision site. Pt afebrile and hemodynamically stable. Labs (12/08) - hemoglobin stable 11.5, normal renal function, no leukocytosis No evidence of any extravasation to suggest active hemorrhage on his CT scan and his fascia appears to be intact. There is a small amount of drainage on his dressing this morning. No evidence of active bleeding or drainage from incision. I am not able to express any fluid with palpation at the time of exam. Continue with conservative management and monitoring. Can apply/change dressings as needed. Urine culture prelim with probable enterococcus. Continue antibiotics and tailor as culture data becomes available. No intervention indicated. Encouraged patient to follow-up with his primary urologist on discharge. Urology will sign-off. Please call with any further questions, concerns, or changes in patient status. Admission and Anticipated Discharge Date Admission Date: December 08, 2023 Subjective Pt examined at bedside this AM. Awake, resting in bed on arrival. No acute distress. Denies f/c/n/v. Denies abdominal, flank or suprapubic pain. ABD pad to RLQ incision site. Reports he is voiding without issue. Review of Systems Constitutional: as per Subjective / HPI Gastrointestinal: as per Subjective / HPI Genitourinary: + as per Subjective / HPI Physical Exam Constitutional: no acute distress Respiratory: no respiratory distress and no labored breathing Gastrointestinal (Abdomen): Percussion/Palpation: abdomen soft; abdomen nontender ABD pad to RLQ incision site with small amount of bloody drainage on pad. No pain with palpation. No evidence of any ongoing drainage or bleeding from his incision. I am not able to express any fluid with palpation. There is ecchymosis surrounding this incision. The incision appears to be intact with Dermabond and there are no open areas. The area around the incision is soft without any evidence of fluid collection or hematoma. There are additional what appears to be laparoscopic incisions sites that are intact with Dermabond. Neurologic: awake Psychiatric: A+Ox3, euthymic affect Results & Data Vital Signs (Past 12 Hours) Vital Signs Temp Pulse Resp BP Pulse Ox O2 Del Method 12/10/23 07:21 36.3 C L 67 18 149/78 H 96 Room Air 12/10/23 05:39 79 18 118/72 94 Room Air 12/09/23 22:19 36.6 C 77 18 136/77 96 Room Air PG Care Time/CCT Total # of Minutes Spent Total Time Spent with Patient: Total time spent is greater than 50% in coordination of care (as documented) at patient's floor/unit and/or counseling patient: Coding Level of Care Code 91379 SUB INP/OBS CARE 2/35MIN Diagnoses Bleeding from wound T14.8XXA
--- NOTE | 2023-12-10 16:22 | Discharge Summary ---
Date of Service December 10, 2023 Admission HPI Per Admitting Provider 82-year-old male with past medical history significant for prediabetes, allergic rhinitis, mild intermittent asthma, hypertension, Evans's esophagus, GERD, BPH, sciatica, frequent headaches, migraines, cervicalgia, bilateral occipital neuralgia, anxiety, FAHAD, depression, urothelial carcinoma of right kidney and on November 27, 2023 patient had s/p hand-assisted laparoscopic nephro ureterectomy and was discharged on December 03 and on December 05 [place] was taken out and is supposed to take Lovenox shots for 20 days which he started just today and took took 1 dose in the morning and 1 in the night when the nephrectomy incision site opened and and had a lot of bleeding which prompted him to come to the ER. Currently bleeding is stopped. Denies any abdominal pain. Denies any hematuria. Normal bowel movements. Appetite is okay. Denies any chest pain or shortness of breath. Has some headache. No runny nose. Afebrile. States he has ambulatory dysfunction because of his back problems. Currently hemodynamics are okay. Past medical history. As mentioned above. Past surgical history. Colonoscopy cystoscopy utero with biopsy cystoscopy utero with lithotripsy EGD EGD with endoscopic ultrasound left TKA. Right laparoscopic nephrectomy and total ureterectomy, bilateral cataract surgery. Sinus surgery. Social history. . Former smoker. Quit 35 years ago. Alcohol rarely. No drug use Family history. Father had cancer. Mother had cancer. Admission Exam Per Admitting Provider General-Not in distress Head- atraumatic Eyes- PERRL. ENT- oropharynx clear Neck- supple, no JVD. Lungs- clear to auscultation no wheezing or crackles Heart- regular rate and rhythm; no murmur, no gallop. Abdomen- normal bowel sounds, soft, nontender, recent hand assisted laparoscopic right nephroureterectomy incision open-currently no drainage seen Extremities- no pretibial edema, no erythema seen. Neuro- alert, oriented PERRL,no facial palsy; no dysarthria Principal Diagnosis Postoperative bleeding from incision site Recent hand-assisted laparoscopic right nephro ureterectomy and incision on November 27, 2023 cute UTI Discharge Exam General-Not in distress Head- atraumatic Lungs- clear to auscultation no wheezing or crackles Heart- regular rate and rhythm; no murmur, no gallop. Abdomen- normal bowel sounds, soft, nontender, recent hand assisted laparoscopic right nephroureterectomy incision open-currently no drainage seen Extremities- no pretibial edema, no erythema seen. Neuro- alert, oriented PERRL,no facial palsy; no dysarthria Discharge Data Allergies Allergy/AdvReac Type Severity Reaction Status Date / Time onabotulinumtoxinA Allergy Severe trouble Verified 12/08/23 00:36 [From Botox] swallowing/ headache azelastine Allergy Intermediate panic Verified 12/08/23 00:36 attack/ depression Consultations 12/08/23 00:31 ED Decision to Admit Stat 12/08/23 08:00 Consult Urology Routine Ordered Studies 12/07/23 22:38 CT angio chest PE protocol Stat 12/07/23 22:39 CT abd pelvis IV con only Stat 12/08/23 09:33 US venous duplex leg [US venous doppler LE BI] Urgent Hospital Course (1) Bleeding from wound: 82-year-old male with past medical history significant for prediabetes, allergic rhinitis, mild intermittent asthma, hypertension, Evans's esophagus, GERD, BPH, sciatica, frequent headaches, migraines, cervicalgia, bilateral occipital neuralgia, anxiety, FAHAD, depression, urothelial carcinoma of right kidney and on November 27, 2023 patient had s/p hand-assisted laparoscopic nephro ureterectomy and was discharged on December 03 Postoperative bleeding from incision site Recent hand-assisted laparoscopic right nephro ureterectomy and incision on November 27, 2023 Patient underwent surgery has been sent about on 2023 Patient was started Lovenox 1 day prior as DVT prophylaxis Hemoglobin is 12.6 on admission; 11.5 Mg/ DL today. Patient's bleeding stopped after holding Lovenox Discussion was done with Dr. Roberto Edwards over [place] text regarding patient hospitalization. As per him, just expected post-op bruising and subq ooze. Not unexpected. Pressure and dressing as needed. Lovenox stopped at discharge. No bleeding from the incision time at the time of discharge. Acute UTI Urine analysis suggestive of infection Urine culture growing probable Enterococcus faecalis Patient was treated with ampicillin during the hospitalization. He was discharged on amoxicillin for 5 more days No other medication changes are done. Please note the above document was generated using voice recognition software. It may contain grammatical, syntax or spelling errors. Any formal questions or concerns about the content, text or information contained within the body of this dictation should be directly addressed to the provider for clarification Total Time Total Time Spent Total Time Spent (In Minutes): 45 Total Time Includes: Examination of the Patient, Discharge Planning, Medication Reconciliation, Communication With Other Providers and Other Discharge Plan Discharge Items Patient Disposition: Home - Home Health Services Reason For Visit: WOUND DEHISCENCE AND BLEEDING Discharge Diagnosis: Postop bleeding Acute UTI Condition on Discharge: Good Activity: Resume your previous activity Non-emergency contact: Primary Care Provider Call non-emergency contact if: you have any medication questions and your symptoms worsen Follow-up/Referrals: Roberto Edwards MD [Outside Practitioners] - (Date & Time 12/16/2023 9:00 AM Provider Roberto Edwards MD Department Urology, [facility] ) Henrik Campbell DO [Primary Care Provider] - (Date & Time 12/13/2023 9:00 AM Provider Yusuf Low MD Department Family Practice [facility] ) Diet: Regular Addtl Attending Provider Instructions: You were admitted to the hospital due to bleeding from your wound site. Please stop taking Lovenox. You are prescribed antibiotic(Amoxcillin) to be taken twice daily for 5 more days. Please lease picker the prescription from [facility] pharmacy Pending Studies at Discharge: No Stand-Alone Forms: My [facility], Smoking Cessation Medications and DC Order Prescriptions: No Action (DME) [facility] See Rx Instructions .MEDSUPPLY Qty: 1 0RF Rx Instructions: As directed (DME) [facility] See Rx Instructions .MEDSUPPLY Qty: 1 0RF Rx Instructions: As directed esomeprazole magnesium 40 mg Capsule,Delayed Release(Dr/Ec) 40 mg PO QAM lisinopril-hydrochlorothiazide 20-12.5 mg Tablet 1 tab PO QAM cyanocobalamin (vitamin B-12) [Vitamin B-12] 1,000 mcg Tablet 1,000 mcg PO QAM cholecalciferol (vitamin D3) [Vitamin D3] 1,000 unit Capsule 1,000 unit PO DAILY fluticasone propionate [Flonase Allergy Relief] 50 mcg/actuation [place],Suspension 1 spray INTRANASAL DAILY PRN (Reason: SINUS CONGESTION) finasteride 5 mg tablet 5 mg PO HS propranolol 10 mg tablet 15 mg PO BID Rx Instructions: TAKE AT 6AM AND 2PM lorazepam 0.5 mg Tablet 0.25 mg PO HS tamsulosin 0.4 mg capsule 0.4 mg PO HS albuterol sulfate 90 mcg/actuation HFA aerosol inhaler 90 mcg INHALATION QID PRN (Reason: sob) bupropion HCl 100 mg Tablet 50 mg PO BID mirtazapine 15 mg Tablet 15 mg PO HS metaxalone 800 mg Tablet 800 mg PO QPM indomethacin 75 mg Capsule, Extended Release 75 mg PO DAILY Rx Instructions: 12/07/23 this med currently on hold metaxalone 800 mg Tablet 400 - 800 mg PO BID PRN (Reason: Pain) Rx Instructions: 1/2 to one tablet up to two times daily, as needed, for head and neck pain. rimegepant 75 mg Tablet,Disintegrating 75 mg PO Q2D PRN (Reason: .head and neck pain) enoxaparin 40 mg/0.4 mL syringe 40 mg subcut BID oxycodone 5 mg tablet 5 mg PO Q6H PRN (Reason: Pain) docusate sodium 100 mg Capsule 100 mg PO BID metoclopramide HCl 10 mg Tablet 10 mg PO Q6H PRN (Reason: Nausea) hydroxyzine HCl 25 mg Tablet 25 mg PO DAILY PRN (Reason: Anxiety) meclizine 25 mg Tablet 25 mg PO TID PRN (Reason: Dizziness) budesonide 32 mcg/actuation [place],Non-Aerosol 1 spray INTRANASAL QAM triamcinolone acetonide 0.1 % Ointment 1 applic TOPICAL BID PRN (Reason: Skin Irritation) Nathaliames/Other Patient Handouts: Nutrition for Wound Healing Admission Data Admit Date/Time: 12/08/23 00:59 Attending Provider: Fernandez Rizvi Admit Provider: Ruben Golden Primary Care Provider: Henrik Campbell Other Providers: Will Saeed; Jay Holland; Donavan Ortega; Reyna Abebe; Gaurav Marin; Hannah Burch; Renea Sterling; Dino He; Heather Adam; Kaushal Arana; Corinne Juarez; Otis Morgan; [facility],Home Healthcare; Ruben Golden Other Interventions: Discharge Summary Assessment (RN) Last Done: 12/10/23 11:11
== END 2023-12-10 15:58 | disposition home health service (06) ==
LOC: 2W 22:11 → ED 22:11 → 2W 12-08 01:52

== ENCOUNTER 2025-01-05 06:33 | Inpatient (IN) ==
--- OUTSIDE RECORDS SUMMARY | 2025-01-05 06:42 | External Medical Summary | Summary of Care ---
Author Name Unknown Organization [facility] Address [address] [place] [address] Phone [phone] Care Team Providers Care Certified Hand Therapist Name Role Phone Henrik Campbell DO Primary Care Provider Reason for Visit * Reason Comments Chemotherapy Opdivo * Episode Based Medications (Routine) - Authorized Specialty Diagnoses / Procedures Referred By Contac t Referred To Contact Diagnoses Urothelial carcinoma of kidney, right (HCC) Procedures [place] INJECTION, NIVOLUMAB Chandler Winter MD [address] [place], [place] [address] [address] Phone: tel: fax: Hematology/Oncology Treatment, [address] [address] Phone: tel: fax: Referral ID Status Reason Start Date Expiration Date V isits Requested Visits Authorized [id number] Authorized 12/23/2023 08/25/[phone] Encounter Details Date Type Department Care Team (Latest Contact Info) Description 01/04/2025 10:00 AM EDT Hem/Onc Treatment Hematology/Oncolog y Treatment, [place] [address] [facility] [address] Cheri, Chair 9 Hem Onc [address] [place] [address] Urothelial carcinoma of kidney, right (HCC)*; Encounter for antineoplastic immunotherapy Allergies Active Allergy Reactions Criticality Noted Date Comments Azelastine Unknown 02/01/2021 Onabotulinumtoxina Other (Please comment) High 01/20/2021 Swallowing difficulty after injection documented as of this encounter (statuses as of 01/04/2025) Medications VITAMIN B-12 100 MCG PO TABS Take 1 Tablet by mouth daily with dinner. Active albuterol (PROAIR HFA) 108 (90 BASE) MCG/ACT inhaler Inhale 2 Puffs by mouth every 4 hours as needed for Cough or Wheezing. With spacer 1 Inhaler 1 07/30/20 18 Active Sildenafil Citrate 100 MG Oral Tablet TAKE ONE TABLET BY MOUTH NEEDED FOR ED 09/14/19 21 Active Meclizine HCl 25 MG Oral Tablet (Antivert)Indicati ons:Hospital discharge follow-up,Nausea Take 1 Tablet by mouth 3 times a day as needed for Dizziness. 60 Tablet 1 09/04/19 22 Active Esomeprazole Magnesium 20 MG Oral Capsule Delayed Release (NexIUM) Take by mouth 1 Capsule daily before breakfast . 90 Capsule 3 10/12/19 22 Active Budesonide 32 MCG/ACT Nasal Suspension Administer 1 Ferris into nostril in the morning. Active Rimegepant Sulfate 75 MG Oral Tablet Disintegrating 75 mg. 05/14/20 23 Active Triamcinolone Acetonide 0.1 % External Ointment (Aristocort)Indica tions:Other atopic dermatitis Apply topically to affected area 2 times a day. To affected area. 454 g 3 11/11/19 24 Active Metoclopramide HCl 10 MG Oral Tablet (Reglan) Take 1 Tablet by mouth every 6 hours as needed for Nausea. 30 Tablet 12/04/19 24 Active Docusate Sodium 100 MG Oral Capsule (Colace) Take 1 Capsule by mouth in the morning and 1 Capsule before bedtime. 30 Capsule 1 12/04/19 24 Active Additional Information Patient taking differently:100 mg Oral BID (.AM/PM),As needed, Reported on 11/23/2024 Ondansetron 4 MG Oral Tablet Disintegrating (Zofran) Place 1 Tablet on tongue every 6 hours as needed for Nausea. 30 Tablet 1 12/04/19 24 Active Metaxalone 800 MG Oral Tablet (Skelaxin) TAKE 1 TABLET BY MOUTH AT BEDTIME AND 1/2 TO 1 TABLET UP TO AN ADDITIONAL TWO TIMES DAILY NEEDED FOR NECK AND HEAD PAIN. 90 Tablet 11 01/16/20 24 Active Qulipta 10 MG Oral Tablet (Atogepant) Take by mouth. Active buPROPion HCl 100 MG Oral Tablet (Wellbutrin) Take 0.5 Tablets by mouth in the morning and 0.5 Tablets before bedtime. 30 Tablet 5 05/29/20 24 Active Mirtazapine 15 MG Oral Tablet (Remeron) Take 1 Tablet by mouth at bedtime. 30 Tablet 5 08/05/20 24 Active LORazepam 0.5 MG Oral Tablet (Ativan) Take 0.5 Tablets by mouth every night at bedtime. NO EARLY REFILLS Do not start before November 23, 2024. 15 Tablet 3 11/24/19 25 Active Finasteride 5 MG Oral Tablet (Proscar)Indicatio ns:BPH with obstruction/lower urinary tract symptoms Take 1 Tablet by mouth in the morning. 90 Tablet 3 11/18/19 25 Active Tamsulosin HCl 0.4 MG Oral Capsule (Flomax)Indication s:BPH with obstruction/lower urinary tract symptoms TAKE ONE CAPSULE BY MOUTH IN THE MORNING 90 Capsule 3 11/18/19 25 Active Lidocaine-Prilocai ne 2.5-2.5 % External Cream (Emla)Indications: Urothelial carcinoma of kidney, right (HCC) Apply topically to affected area as needed for Other (none). APPLY TO SKIN OVER MEDIPORT & COVER 1HR PRIOR TO ACCESSING. 30 g 2 11/18/19 25 Active Propranolol HCl 40 MG Oral Tablet (Inderal)Indicatio ns:HTN, goal below 140/90,FAHAD (generalized anxiety disorder) Take 1 Tablet by mouth in the morning and 1 Tablet before bedtime. 180 Tablet 5 11/24/19 25 Active Nitrofurantoin Monohyd Macro 100 MG Oral Capsule (Macrobid) Take 1 Capsule by mouth in the morning and 1 Capsule before bedtime. With food.. 20 Capsule 12/26/19 25 Active Hospital, Clinic, or Other Facility Administered Medication Ordered Dose Route Frequency Start Date End Date Status Albuterol Sulfate (Proventil) (2.5 MG/3ML) 0.083% inhalation solution 2.5 mgIndications:Lymphadenop athy, mediastinal,Urothelial carcinoma of kidney, right (HCC),Dyspnea and respiratory abnormalities 2.5 mg NEBULIZER PRN 05/25/2024 Active Albuterol Sulfate (Proventil) (5 MG/ML) 0.5% *conc* inhalation solution 2.5 mgIndications:Lymphadenop athy, mediastinal,Urothelial carcinoma of kidney, right (HCC),Dyspnea and respiratory abnormalities 2.5 mg NEBULIZER PRN 05/25/2024 Active documented as of this encounter (statuses as of 01/04/2025) Active Problems Problem Noted Date Diagnosed Date Dysuria 2024 Chronic kidney disease, stage 3b 08/03/2024 Overview: Per CKD protocol Hypercalcemia 07/21/2024 QT prolongation 12/12/2023 Urothelial carcinoma of kidney, right 11/14/2023 Medical [...] goal below 140/90 09/07/2015 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 Other specified disorder of penis 06/20/2005 Frequent headaches Overview (11/16/2015): chronic frontal headaches ICD-10 update of inactive term Allergic rhinitis documented as of this encounter (statuses as of 01/04/2025) Resolved Problems Problem Noted Date Diagnosed Date Resolved Date Chronic kidney disease, stage 3a 05/04/2024 08/10/2024 Overview: Per CKD protocol Ileus, postoperative 12/01/2023 024 Viral upper respiratory tract infection 08/06/2018 02/14/2021 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 06/11/2022 Sciatica 01/17/2017 05/28/2017 ADVANCE DIRECTIVE INFORMATION 08/17/2008 06/29/2024 Overview (08/17/2008): Yes, Patient instructed to provide copy of advance directive for provider to review and to be scanned into Electronic Medical Record 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 05/28/2017 Nocturia 06/20/2005 05/28/2017 ringworm-left cheek 05/11/2002 05/28/20 17 lesion under left arm 05/11/20022016 Chronic sinusitis 05/28/2017 documented as of this encounter (statuses as of 01/04/2025) Immunizations Name Administration Dates Next Due COVID-19 mRNA, LNP-s, No Pre serve, 2-Dose Series (Pfizer) 07/17/2021,11/22/2020,10/26/2020 Pneumococcal Conjugate Vacc, 13 Valent (Prevnar) 12/30/2014 Pneumococcal Polysaccharide PPV23 (Pneumovax) 08/26/2011 Seasonal Influenza Vac., MDV , IM, 0.5 mL (Fluzone) 05/09/2018,06/12/2017,05/25/2017 Seasonal Influenza Virus Vac cine, Unspecified Formulation 06/06/2019,06/26/2016,08/26/2013,05/26,06/07/2012,04/26/2011 Seasonal Influenza, Quadriva lent Hd (Fluzone Hd) 06/03/2021 Seasonal Influenza, Quadriva lent Hd, 65+ Yrs 06/02/2022 Seasonal Influenza, Quadriva lent, No Preserve, IM 06/21/2016 Seasonal Influenza, Trivalen t, Adjuvanted, 65+ YRS, PF, (Fluad) 05/25/2023,05/30/2020 TDAP (age 10 and older)(Boostrix) 05/27/2023, Varicella Zoster Vaccine Donnell lt (Zostavax) 05/30/2020,06/14/2017 Zoster Vaccine Recombinant (Shingrix) 06/05/2022 ,05/30/2020 documented as of this encounter Social History Tobacco Use Types Packs/Day Years Used Date Smoking Tobacco: Former Cigarettes 2.5 22 S tarted: 1961 Smokeless Tobacco: Former Snuff Comments:Quit cigarettes 198 4 Chew 1985 Alcohol Use Standard Drinks/Week Comments Yes 0 (1 standard drink = 0.6 oz pur e alcohol) 1-2 beers twice a month PHQ-2 Answer Date Recorded PHQ Adult Total Score 2 12/23/2023 Hunger Vital Sign Answer Date Recorded Within the past 12 months, y ou worried that your food would run out before you got the money to buy more. Never true 07/09/20 24 Within the past 12 months, t he food you bought just didn't last and you didn't have money to get more. Never true 07/09/2024 Childcare Answer Date Recorded Do you feel overwhelmed with taking care of a child, family member or friend? No 07/09/2024 Does your family need help f inding childcare? (Household - for ages 0-17 years) Not on file 07/09/2024 Clothing Answer Date Recorded Have you been unable to get clothing when it was really needed? Yes 07/09/2024 Is your family able to get c lothes or diapers when needed? (Household - for ages 0-17 years) Not on file 07/09/2024 Personal Safety Answer Date Recorded Do you feel unsafe or have concerns for your saf ety? No 07/09/2024 Do you have concerns for you r family's safety? (Household - for ages 0-17 years) Not on file 07/09/2024 Utilities Answer Date Recorded Do you have trouble paying y our heating, water, or electric bill? No 07/09/2024 Is your family able to pay t he heat, water, or electric bill? (Household - for ages 0-17 years) Not on file 07/09/2024 Does your family have access to good internet? (Household - for ages 0-17 years) Not on file 07/09/2024 Employment Status Answer Date Recorded Are you unemployed or without regular income? No 07/09/2024 Does the household have a re gular source of income? (Household - for ages 0-17 years) Not on file 07/09/2024 Social Connections Answer Date Recorded How often do you feel lonely or isolated from th ose around you? Rarely 07/09/2024 Financial Resource Strain Answer Date R ecorded Do you have any trouble payi ng for your medications, or do you think you might in the future? No 07/09/2024 Does your family have troubl e paying for medicine? (Household - for ages 0-17 years) Not on file 07/09/2024 Transportation Needs Answer Date Record ed Do you have trouble getting a ride to medical visits or work? (Adult - for ages 18 years and over) Not on file 07/09/2024 Does your family have a hard time getting a ride to doctors visits? (Household - for ages 0-17 years) Not on file 07/09/2024 Has lack of transportation k ept you from medical appointments, meetings, work, or from getting things needed for daily living? Check all that apply. No 07/09/2024 Do you (or your family) have trouble finding or paying for a ride (transportation)? (Household - for ages 0-17 years) Not on file 07/09/2024 Housing Stability Answer Date Recorded Do you currently live in a s helter or have no steady place to sleep at night? No 07/09/2024 Do you think you are at risk of becoming homeless? (Adult - for ages 18 years and over) Not on file 07/09/2024 Does your family worry about paying for your home or becoming homeless? (Household - for ages 0-17 years) Not on file 1 09/08/2023 Are you homeless or worried that you might be in the future? No 07/09/2024 Are you (or your family) karla eless or worried that you might be in the future? (Household - for ages 0-17 years) Not on file Food Insecurity Answer Date Recorded Do you need food for this week? No 07/09/2024 Are you able to get enough f ood for your family? (Household - for ages 0-17 years) Not on file 07/09/2024 Does your family need food t his week? (Household - for ages 0-17 years) Not on file 07/09/2024 Do you always have enough fo od for your family? (Household - for ages 0-17 years) Not on file 07/09/2024 Food Insecurity Answer Date Recorded Within the past 12 months, y ou worried that your food would run out before you got the money to buy more. Never true 07/09/20 24 Within the past 12 months, t he food you bought just didn't last and you didn't have money to get more. Never true 07/09/2024 Do you need food for this week? 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 Answer Date of Assessment Author No 11/27/2023 2:35 PM EDT Kenzie Pantoja RN * Are you blind or do you have serious difficulty seeing, even when wearing glasses? Answer Date of Assessment Author No 11/27/2023 2:35 PM EDT Kenzie Pantoja RN * Do you have serious difficulty walking or climbing stairs? (5 years old or older) Answer Date of Assessment Author No 11/27/2023 2:35 PM EDT Kenzie Pantoja RN * Do you have difficulty dressing or bathing? (5 years old or older) Answer Date of Assessment Author No 11/27/2023 2:35 PM EDT Kenzie Pantoja RN * Because of a physical, mental, or emotional condition, do you have difficulty doing errands alone such as visiting a doctor’s office or shopping? (15 years old or older) Answer Date of Assessment Author Yes 11/27/2023 2:35 PM EDT Kenzie Pantoja RN documented as of this encounter Mental Status * Because of a physical, mental, or emotional condition, do you have serious difficulty concentrating, remembering, or making decisions? (5 years old or older) Answer Entry Date Author No 11/27/2023 2:35 PM EDT Kenzie Pantoja RN documented in this encounter Nursing Notes * Harini Goncalves RN - 01/04/2025 12:45 PM EDT 1110: Opdivo complete, patient tolerated without difficulty. Port flushed with 10ml NSS, blood return noted, and locked with additional 10ml NSS. De La Vega needle removed, tip intact. Gauze dressing applied. Goals: Patient will remain free from injury. Possible barriers to meeting goals: Ambulating with IV pole. Stability of the patient: Moderately stable - low risk of patient condition declining or worsening Summary regarding today's goals: Met: Patient remains free from injury. Patient given copy of today's labs per his request. Has provided with clinic phone number and encouraged to call day or night with any concerns he made have at home. Patient and express understanding. Patient denies further needs at this time. Ambulatory with walker from facility in stable condition. * Harini Goncalves RN - 01/04/2025 12:37 PM EDT 1030: Chair 8. Patient presents for C22, D1 Opdivo treatment. Reports chills at home x6 days. No fever. Increased fatigue. Eating and drinking well and no GI symptoms. Reviewed patient's labs, VS, and complaints with Dr. Winter prior to starting today's treatment. Per Dr. Winter, ok to proceed with treatment today.Port accessed using sterile technique. Blood return noted. Pt tolerated well. Chemotherapy/Immunotherapy agents: OPDIVO Consent for chemotherapy drug treatment complete, dated, and signed? yes, date - 4/29/24 Treatment lab parameters met? Yes Has treatment weight changed > than 10%? No Treatment preauthorized? Yes VITALS Filed Vitals: 01/04/25 1010 BP: 126/70 Pulse: 64 Resp: 20 Temp: 37.3 °C (99.1 °F) TempSrc: Tympanic SpO2: 94% Weight: 107.5 kg (236 lb 14.4 oz) BP Readings from Last 2 Encounters: 01/04/25 126/70 12/21/24 155/76 Pulse Readings from Last 2 Encounters: 01/04/25 64 12/21/24 65 Resp Readings from Last 2 Encounters: 01/04/25 20 12/08/24 18 SpO2 Readings from Last 2 Encounters: 01/04/25 94% 12/21/24 94% Temp Readings from Last 2 Encounters: 01/04/25 37.3 °C (99.1 °F) (Tympanic) 12/21/24 36.4 °C (97.5 °F) (Tympanic) Urine protein: N/A Patient education completed for treatment? Yes Blood transfusion consent signed and complete? NA Return appointment scheduled? Yes Patient had provider visit today? No - If no provider visit must complete Pretreatment Assessment PRE-TREATMENT ASSESSMENT: NEURO: fatigue:energy level declining from baseline, pt feels "blah" CV/RESP: denies symptoms GI/: denies symptoms OTHER: denies any additional symptoms PAIN: 0 Functional Status: Functional status at today's visit: Capable of only limited selfcare, confined to bed or chair more than 50% of waking hours The drug name, dose, infusion volume, rate and route of administration, expiration date and time, appearance and physical integrity of the drug and rate set on the pump and sequencing of drug administration (as applicable) were verified by me and second sign-in RN. Patient was assessed for symptoms or adverse side effects during treatment. Patient Education: Patient instructed on use of heat and massage functions where applicable. Patient shown how to operate the heat function of the chair and to alert nursing staff if the chair feels too warm. Patient instructed on the risk of potential gutierrez while using the heat function. Safety and Risk for Injury Patient will remain free from injury. Ensure appropriate safety devices are available. Provide and maintain safe environment. documented in this encounter Plan of Treatment Upcoming Encounters Date Type Department Care Team (Late st Contact Info) Description 01/19/2025 1:30 PM EDT Laboratory Laboratory [facility] [address] [place] [phone] Cheri, Lab Scenery [address] [place] [address] 01/19/2025 2:00 PM EDT Office Visit Hematology/Oncology [facility] [place] [address] [place] [phone] Chandler Winter MD [address] [place] [address] 01/19/2025 2:30 PM EDT Hem/Onc Treatment Hematology/Oncology Treatment, [place] [address] [place] [address] Cheri, Chair 4 Hem Onc Scenery [address] [facility] [place] [id number] 02/03/2025 1:30 PM EDT Telemedicine Psychiatry Diogo Squires [address] [place] [address] Princess Kwon MD [address] [place], [place] [id number] 03/15/2025 3:00 PM EDT Procedure Only Urology, [facility] [address] [place] [phone] Roberto Edwards MD [address] [place] [address] 04/23/2025 10:40 AM EDT Telemedicine Neurology [address] [place] [phone] Nan Miller MD [address] [place] [address] 04/29/2025 8:00 AM EDT Office Visit Pulmonary Medicine, [facility] [address] [place] [phone] Luigi Bass MD [address] [place] [address] 05/25/2025 9:00 AM EDT Office Visit [facility] [address] [place] [address] Rema Carpenter CRNP [address] [place] [address] 06/08/2025 3:30 PM EDT Procedure Only Urology, [facility] [address] [place] [phone] Roberto Edwards MD [address] [place] [address] 06/17/2025 2:20 PM EDT Office Visit Nephrology, [facility] [address] [facility] [place] [address] Reece Cross MD [address] [facility] [place] [address] 11/23/2025 9:40 AM EDT Office Visit [facility] [address] [place] [address] Henrik Campbell DO [address] [place] [address] Scheduled Procedures Name Priority Associated Diagnoses Date/Ti me ESOPHAGOGASTRODUODENOSCOPY ( EGD), FLEXIBLE, TRANSORAL, DIAGNOSTIC Recall Evans's esophagus with esophagitis Health Maintenance Due Date Last Done Comments Adult Wellness Visit 12/16/2019 12/15/2018 Depression Monitoring 12/22/2024 12/23/2023 Albumin/Creatinine Ratio 05/04/2025 024, 11/06/2023, 03/22/2023, Additional history exists COVID-19 Vaccine ( season) 2025 11/03/2024, 07/17/2021, 11/22/2020, Additional history exists GFR 07/07/2025 01/04/2025, 11/25, 12/07/2024, Additional history exists CKD PHOS USE SMARTSET 94261 08/03/2025 08/03/2024, 1 09/20/2023 HbA1c 11/23/2025 11/23/2024, 03/0 10/2024, 05/04/2024, Additional history exists CKD HGB USE SMARTSET 72265 01/04/202601/04, 01/04/2025, 12/21/2024, Additional history exists Colonoscopy 01/21/2027 01/22/2024, 12/25, 08/03/2021, Additional history exists Evans's Esophagus Surveilance 07/08/2027 07/08/2024, 01/22/2024, 01/22/2024, Additional history exists DTap/Tdap Vaccines (3 - Td or Tdap) 05/27/2033 05/27/2023, 12/22/2010 Pneumococcal Vaccine: 50+ Years Completed 12/30/2014, 08/26/2011 Zoster Vaccines Completed 06/05/2022, 12/2019, 05/30/2020, Additional history exists EKG Completed 09/11/2023, 08/28, 10/07/2008 Influenza Vaccine (FLU shot) Completed , 05/25/2023, 06/02/2022, Additional history exists HPV (Gardasil) Vaccine Aged Out No lo nger eligible based on patient's age to complete this topic Hepatitis B Vaccine Aged Out No longe r eligible based on patient's age to complete this topic MENINGOCOCCAL (MENACTRA/MENVEO) Aged Out No longer eligible based on patient's age to complete this topic Meningitis B Vaccine (Bexsero/Trumemba) Aged Out No longer eligible based on patient's age to complete this topic documented as of this encounter Medical Devices Implanted Type Area Cleaning Maid Device Identifier Shelf Expiration Date Model / Serial / Lot Lens Intraoc 19.5 - [id number] - [id number] Implanted:Qty : 1 on 12/07/2021 by Eulogio Barrios MD at OR [facility] Left: Eye BAUSCH 07/25/2026 [id number] / [id number] / [id number] Lens Intraoc 19.5 - [id number] - [id number] Implanted:Qty : 1 on 12/19/2021 by Eulogio Barrios MD at OR [facility] Right: Eye BAUSCH 07/25/2026 [id number] / [id number] / [id number] Port Implant W8f Poly Cath - [id number] Implanted:Qty : 1 on 01/08/2024 by Austin Ervin MD at OR [facility] Right: Chest CR BARD : PERIPHERAL VASCULAR [id number] 01/23/2025 [id number] / / [id number] documented as of this encounter Visit Diagnoses Diagnosis Urothelial carcinoma of kidney, right (HCC)- Primary Encounter for antineoplastic immunotherapy documented in this encounter Administered Medications Inactive Administered Medications - up to 3 most recent administrations Medication Order MAR Action Action Date Dose Rate Site Nivolumab (Opdivo) 240 mg in NSS 100 mL infusion 240 mg, IV Piggyback, ONCE, 1 dose, On Sat01/04/25 at 1145, Administer over 30 Minutes, DO NOT SHAKE Use a sterile, non-pyrogenic, low protein binding in-line filter (0.2 micrometer-1.2 micrometer)Indications:Urot helial carcinoma of kidney, right (HCC) Start Infusion 01/04/2025 10:34 AM EDT 240 mg 258 mL/hr NSS infusion Intravenous, at 50 mL/hr, PRN, Starting on Sat01/04/25 at 1115, Until Sat01/04/25 at 1652, Maintenance lineIndications:Urothelial carcinoma of kidney, right (HCC) Start Infusion 01/04/2025 10:33 AM EDT 50 mL/hr sodium chloride 0.9 % flush/inj 20 mL 20 mL, IV Push, PRN IV Flush and Lock, Starting on Sat01/04/25 at 1004, Until 01/04/25 at 1652, Do not flush if lock, PICC, or central line not in place; IV infusing or unable to flush. For midlines and central lines. For IV Flush and Lock, IVAD is flushed with a total of 20 mL Normal Saline, 10 mL of Normal Saline Flush with 10 mL of Normal Saline acting as IV LOCK.Indications:Urothelial carcinoma of kidney, right (HCC) Given 01/04/2025 11:08 AM EDT 20 mL documented in this encounter Advance Directives Documents on File Type Date Recorded Patient Dopster Expl anation Advance Directives and Living Will 04/22/2001 Roma Rosenbaumn LIVING WILL * Full Code (Latest Code Status on File) Date Activated Date Inactivated Comments 11/27/2023 1:06 PM 12/04/2023 10:54 PM This order r eflects the patients wishes and were consensually agreed upon. Question Answer Comments Discussion of Advance Directives occurred with: Patient * Full Code Date Activated Date Inactivated Comments 11/27/2023 6:46 AM 11/27/2023 1:06 PM This order ref lects the patients wishes and were consensually agreed upon. Question Answer Comments Discussion of Advance Directives occurred with: Patient * Full Code Date Activated Date Inactivated Comments 09/02/2023 1:54 PM 09/02/2023 10:24 PM This order re flects the patients wishes and were consensually agreed upon. Question Answer Comments Discussion of Advance Directives occurred with: Patient * Full Code Date Activated Date Inactivated Comments 09/02/2023 10:39 AM 09/02/2023 1:54 PM This order re flects the patients wishes and were consensually agreed upon. Question Answer Comments Discussion of Advance Directives occurred with: Patient Healthcare Agents on File Name Relationship Healthcare Agent Relationshi p Communication Roma Gutiérrez Spouse Health Care Agen t (per Health Care Power of Medical Scheduler document) Care Teams Certified Hand Therapist Relationship Specialty Start Date End Date Henrik Campbell DO [address] [address] PCP - General Family Medicine 06/02/18 documented as of this encounter
--- OUTSIDE RECORDS SUMMARY | 2025-01-05 06:42 | External Medical Summary ---
Author Name Unknown Address Unknown Organization K09:[facility] [address] [place] [address] Laboratory Report Ordering Provider Test Date Status JEAN PIERRE SON 01/04/2025 08:57:55 Final Observation Date Value Abnormality Reference (Units ) Status BUN 01/04/2025 08:57:55 25 Above high normal 6-20 (mg/dL) Final Creatinine 01/04/2025 08:57:55 1.9 Above high normal 0.6-1.2 (mg/dL) Final Glomerular filtration rate/1.73 sq M.predicted [Volume Rate/Area] in Serum, Plasma or Blood by Creatinine-based formula (CKD-EPI) 01/04/2025 08:57:55 34 Below low normal >=60 (mL/min) Final eGFR is calculated based on the CKD-EPI 2020 equation. Sodium 01/04/2025 08:57:55 138 135-146 (m mol/L) Final Potassium 01/04/2025 08:57:55 4.0 3.5-5.1 (m mol/L) Final Cl 01/04/2025 08:57:55 105 98-107 (mm ol/L) Final CO2 01/04/2025 08:57:55 17 Below low normal 22- 32 (mmol/L) Final Anion gap 01/04/2025 08:57:55 16 Above high normal 7- 15 (mmol/L) Final Glucose 01/04/2025 08:57:55 140 Above high normal 70 -120 (mg/dL) Final Albumin 01/04/2025 08:57:55 4.1 3.8-5.0 (g /dL) Final AST (Aspartate aminotransferase) 01/04/2025 08:57:55 23 10-50 (U/L) Fin al Alk Phos 01/04/2025 08:57:55 49 35-130 (U/ L) Final Bilirubin, Total 01/04/2025 08:57:55 0.6 <=1 .2 (mg/dL) Final Calcium 01/04/2025 08:57:55 8.9 8.4-10.2 ( mg/dL) Final Protein 01/04/2025 08:57:55 7.6 6.0-8.3 (g /dL) Final ALT (Alanine aminotransferase) 01/04/2025 08:57:55 15 10-50 (U/L) Frederick vaughan Performing Location [facility] [place] [address]
--- OUTSIDE RECORDS SUMMARY | 2025-01-05 06:42 | External Medical Summary | Summary of Care ---
Author Name Unknown Organization [facility] Address [address] [place] [address] Phone [phone] Care Team Providers Care [employer] Remover Name Role Phone Henrik Campbell DO Primary Care Provider Reason for Visit * Reason Comments Chemotherapy Opdivo [id number] * Episode Based Medications (Routine) - Authorized Specialty Diagnoses / Procedures Referred By Contac t Referred To Contact Diagnoses Urothelial carcinoma of kidney, right (HCC) Procedures AK INJECTION, NIVOLUMAB Chandler Winter MD [address] [place] [address] [place] [address] Phone: tel: fax: Hematology/Oncology Treatment, [address] [address] Phone: tel: fax: Referral ID Status Reason Start Date Expiration Date V isits Requested Visits Authorized [id number] Authorized 12/23/2023 08/25/[phone] Encounter Details Date Type Department Care Team (Latest Contact Info) Description 12/21/2024 10:00 AM EDT Hem/Onc Treatment Hematology/Oncolog y Treatment, [address] [address] Cheri, Chair 4 Hem On[address] [place] [address] Urothelial carcinoma of kidney, right (HCC)*; Encounter for antineoplastic immunotherapy Allergies Active Allergy Reactions Criticality Noted Date Comments Azelastine Unknown 02/01/2021 Onabotulinumtoxina Other (Please comment) High 01/20/2021 Swallowing difficulty after injection documented as of this encounter (statuses as of 12/31/2024) Medications VITAMIN B-12 100 MCG PO TABS [...] Budesonide 32 MCG/ACT Nasal Suspension Administer 1 Hope into nostril in the morning. Active Rimegepant [...] and 1 Capsule before bedtime. With food.. 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 Answer Date of Assessment Author No 11/27/2023 2:35 PM Kenzie Harper RN * Are you blind or do you have serious difficulty seeing, even when wearing glasses? Answer Date of Assessment Author No 11/27/2023 2:35 PM Kenzie Harper RN * Do you have serious difficulty walking or climbing stairs? (5 years old or older) Answer Date of Assessment Author No 11/27/2023 2:35 PM Kenzie Harper RN * Do you have difficulty dressing or bathing? (5 years old or older) Answer Date of Assessment Author No 11/27/2023 2:35 PM Kenzie Harper RN * Because of a physical, mental, or emotional condition, do you have difficulty doing errands alone such as visiting a doctor’s office or shopping? (15 years old or older) Answer Date of Assessment Author Yes 11/27/2023 2:35 PM Kenzie Harper RN documented as of this encounter Mental Status * Because of a physical, mental, or emotional condition, do you have serious difficulty concentrating, remembering, or making decisions? (5 years old or older) Answer Entry Date Author No 11/27/2023 2:35 PM Kenzie Harper RN documented in this encounter Nursing Notes * Janeth Darden RN - 12/21/2024 2:20 PM EDT Pt completed treatment without issues. Port needle flushed with 10 ml NSS, blood return noted, and port locked with additional 10 ml NSS. De [place] Vega needle removed, intact, gauze dressing applied. Goals: Pt will remain free from injury. Possible barriers to meeting goals: pt is a high fall risk Stability of the patient: Moderately stable - low risk of patient condition declining or worsening Summary regarding today's goals: Met: . Pt remained free from injury during treatment today. Discharged in stable condition. * Janeth Darden RN - 12/21/2024 11:01 AM EDT Chair 11. Pt presents to clinic for Opdivo infusion after OV with Renea [facility]; refer to OV notes. Chemotherapy/Immunotherapy agents: OPDIVO Consent for chemotherapy drug treatment complete, dated, and signed? yes, date - 12/23/23 Treatment lab parameters met? Yes Has treatment weight changed > than 10%? No Treatment preauthorized? Yes VITALS Filed Vitals: BP Readings from Last 2 Encounters: 12/21/24 155/76 12/08/24 136/70 Pulse Readings from Last 2 Encounters: 12/21/24 65 12/08/24 70 Resp Readings from Last 2 Encounters: 12/08/24 18 11/09/24 18 SpO2 Readings from Last 2 Encounters: 12/21/24 94% 12/08/24 94% Temp Readings from Last 2 Encounters: 12/21/24 36.4 °C (97.5 °F) (Tympanic) 11/23/24 36.7 °C (98 °F) (Tympanic) Urine protein: N/A Patient education completed for treatment? Yes Blood transfusion consent signed and complete? NA Return appointment scheduled? Yes Patient had provider visit today? Yes - Ok to release order and treat per provider VAD accessed with positive blood return; Opdivo infusing. Safety and Risk for Injury Patient will remain free from injury. Ensure appropriate safety devices are available. Provide and maintain safe environment. Functional Status: Functional status at today's visit: Restricted in physically strenuous activity but ambulatory and able to carry out work on a light orsedentary nature, e.g. light house work, office work The drug name, dose, infusion volume, rate [...] potential gutierrez while using the heat function. documented in this encounter Plan of Treatment Upcoming Encounters Date Type Department Care Team (Late st Contact Info) Description 01/04/2025 9:00 AM EDT Laboratory [facility] [place] [address] [place] [phone] Cheri Lab [facility] [address] [place] [address] 01/04/2025 10:00 AM EDT Hem/Onc Treatment Hematology/Oncology Treatment, [place] [address] [place] [address] Cheri, Chair 9 Hem Onc [facility] [address] [place] [address] 01/19/2025 1:30 PM EDT Laboratory [facility] [place] [address] [place] [phone] Cheri, Lab [facility] [address] [place] [address] [address] 01/19/2025 2:00 PM EDT Office Visit Hematology/Oncology [facility] [address] [place] [address] [phone] Chandler Winter MD [address] [place] [address] 01/19/2025 2:30 PM EDT Hem/Onc Treatment Hematology/Oncology Treatment, [place] [address] [place] [phone] 02/03/2025 1:30 PM EDT Telemedicine Psychiatry [facility] [place] [address] [place] [address] Princess Kwon MD [address] [place] [address] 03/15/2025 3:00 PM EDT Procedure Only Urology, [facility] [address] [place] [phone] Roberto Edwards MD [address] [place] [address] 04/23/2025 10:40 AM EDT Telemedicine Neurology [address] [place] [address] Nan Miller MD [address] [place] [address] 04/29/2025 8:00 AM EDT Office Visit Pulmonary Medicine, [facility] [address] [place] [phone] Luigi Bass MD [address] [facility] [place] [id number] 05/25/2025 9:00 AM EDT Office Visit Family Practice [facility] [address] [place] [address] Rema Carpenter CRNP [address] [place] [address] 06/08/2025 3:30 PM EDT Procedure Only Urology, [facility] [address] [place] [phone] Roberto Edwards MD [address] [place] [address] 06/17/2025 2:20 PM EDT Office Visit Nephrology, [facility] [address] [facility] [place] [address] Reece Cross MD [address] [facility] [place] [address] 11/23/2025 9:40 AM EDT Office Visit [facility] [address] [place] [address] Henrik Campbell DO [address] [place] [address] Scheduled Procedures Name Priority Associated Diagnoses Date/Ti me ESOPHAGOGASTRODUODENOSCOPY ( EGD), FLEXIBLE, TRANSORAL, DIAGNOSTIC Recall Evans's esophagus with esophagitis Health Maintenance Due Date Last Done Comments Adult Wellness Visit 12/16/2019 12/15/2018 Depression Monitoring 12/22/2024 12/23/2023 Albumin/Creatinine Ratio 05/04/2025 024, 11/06/2023, 03/22/2023, Additional history exists COVID-19 Vaccine ( season) 2025 11/03/2024, 07/17/2021, 11/22/2020, Additional history exists GFR 06/22/2025 12/21/2024, 11/24, 11/23/2024, Additional history exists CKD PHOS USE SMARTSET 03118 08/03/2025 08/03/2024, 1 09/20/2023 HbA1c 11/23/2025 11/23/2024, 0310/2024, 05/04/2024, Additional history exists CKD HGB USE SMARTSET 64538 12/21/202512/21, 12/21/2024, 12/07/2024, Additional history exists Colonoscopy 01/21/2027 01/22/2024, 12/25, 08/03/2021, Additional history exists Evans's Esophagus Surveilance 07/08/2027 07/08/2024, 01/22/2024, 01/22/2024, Additional history exists DTap/Tdap Vaccines (3 - Td or Tdap) 05/27/2033 05/27/2023, 12/22/2010 Pneumococcal Vaccine: 50+ Years Completed 12/30/2014, 08/26/2011 Zoster Vaccines Completed 06/05/2022, 12/2019, 05/30/2020, Additional history exists Influenza Vaccine (FLU shot) Completed , 05/25/2023, [...] this encounter Medical Devices Implanted Type Area Correctional Supervisor Device Identifier Shelf Expiration Date Model / Serial / Lot Lens Intraoc 19.5 - [id number] - [id number] Implanted:Qty : 1 on 12/07/2021 by Eulogio Barrios MD at [facility] Left: Eye BAUSCH 07/25/2026 [id number] / [id number] / [id number] Lens Intraoc 19.5 - [id number] - [id number] Implanted:Qty : 1 on 12/19/2021 by Eulogio Barrios MD at OR [facility] Right: Eye BAUSCH 07/25/2026 [id number] / [id number] / [id number] Port Implant W8f Poly Cath - [id number] Implanted:Qty : 1 on 01/08/2024 by Austin Ervin MD at OR [facility] Right: Chest CR BARD : PERIPHERAL VASCULAR [id number] 01/23/2025 [id number] / / [id number] documented as of this encounter Visit Diagnoses Diagnosis Urothelial carcinoma of kidney, right (HCC)- Primary Encounter for antineoplastic immunotherapy documented in this encounter Administered Medications Inactive Administered Medications - up to 3 most recent administrations Medication Order MAR Action Action Date Dose Rate Site Nivolumab (Opdivo) 240 mg in NSS 100 mL infusion 240 mg, IV Piggyback, ONCE, 1 dose, On Sat12/21/24 at 1200, Administer over 30 Minutes, DO NOT SHAKE Use a sterile, non-pyrogenic, low protein binding in-line filter (0.2 micrometer-1.2 micrometer)Indications:Urot helial carcinoma of kidney, right (HCC) Start Infusion 12/21/2024 10:35 AM EDT 240 mg 258 mL/hr NSS infusion Intravenous, at 50 mL/hr, PRN, Starting on Sat12/21/24 at 1130, Until Sat12/21/24 at 1822, Maintenance lineIndications:Urothelial carcinoma of kidney, right (HCC) Start Infusion 12/21/2024 10:32 AM EDT 50 mL/hr sodium chloride 0.9 % flush/inj 20 mL 20 mL, IV Push, PRN IV Flush and Lock, Starting on Sat12/21/24 at 1016, Until Sat12/21/24 at 1822, Do not flush if lock, PICC, or central line not in place; IV infusing or unable to flush. For midlines and central lines. 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 Question Answer Comments Discussion of Advance Directives occurred with: Patient Healthcare Agents on File Name Relationship Healthcare Agent [facility] p Communication Roma Gutiérrez Spouse Health Care Agen t (per Health Care Power of Alignment Technician document) Care Teams Hull And Deck Remover Relationship Specialty Start Date End Date Henrik Campbell DO [facility] [place] [address] PCP - General Family Medicine 06/02/18 documented as of this encounter
--- OUTSIDE RECORDS SUMMARY | 2025-01-05 06:42 | External Medical Summary | Summary of Care ---
Author Name Unknown Organization [facility] Address [address] [place] [address] Phone [phone] Care Team Providers Care It Sales Executive Name Role Phone Henrik Campbell DO Primary Care Provider Reason for Visit * Reason Comments Chemotherapy opdivo * Episode Based Medications (Routine) - Authorized Specialty Diagnoses / Procedures Referred By Contac t Referred To Contact Diagnoses Urothelial carcinoma of kidney, right (HCC) Procedures NM INJECTION, NIVOLUMAB Chandler Winter MD [address] [facility] [place] [address] Phone: tel: fax: Hematology/Oncology Treatment, [address] [address] Phone: tel: fax: Referral ID Status Reason Start Date Expiration Date V isits Requested Visits Authorized [id number] Authorized 12/23/2023 08/25/[phone] Encounter Details Date Type Department Care Team (Latest Contact Info) Description 12/07/2024 10:00 AM EDT Hem/Onc Treatment Hematology/Oncology Treatment, [address] [phone] Cheri, Chair 1 Hem Onc [address] [place] [address] Urothelial carcinoma of kidney, right (HCC)* Allergies Active Allergy Reactions Criticality Noted Date [...] Budesonide 32 MCG/ACT Nasal Suspension Administer 1 [place] into nostril in the morning. Active Rimegepant [...] Active Problems Problem Noted Date Diagnosed Date Chronic kidney disease, stage 3b 08/03/2024 Overview: [...] 08/10/2024 Overview: Per CKD protocol Ileus, postoperative 12/01/202312/22/ 024 Viral upper respiratory tract infection 08/06/2018 [...] Assessment Author No 11/27/2023 2:35 PM Kenzie Harper, EDYTA * Because of a physical, mental, or [...] documented in this encounter Nursing Notes * Kenzie Nunez RN - 12/07/2024 11:06 AM EDT Infusion complete. Patient tolerated well. Port needle flushed with 10 ml NSS, blood return noted, and port locked with additional 10 ml NSS. [place] needle removed, intact, gauze dressing applied. Goals: Patient will remain free from injury. Possible barriers to meeting goals: ambulating with IV pole, use of walker Stability of the patient: Moderately stable - low risk of patient condition declining or worsening Summary regarding today's goals: Met: Patient remained free from harm/injury during treatment. Patient left facility in stable condition. * Kenzie Nunez, RN - 12/07/2024 10:25 AM EDT Chair 1, patient here for treatment. Patient reports that he has had burning with urination since cysto done. TE in chart regarding order for UA. Patient states that he has a "rash or soreness" between legs, reports its "looking better than it did." Reviewed with Renea MC. VAD accessed without difficulty, + blood return, flushed with 10 ml NSS and dressing applied. Chemotherapy/Immunotherapy agents: OPDIVO Consent for chemotherapy drug treatment complete, dated, and signed? yes, date - 12/22/24 Treatment lab parameters met? Yes Has treatment weight changed > than 10%? No Treatment preauthorized? Yes VITALS There were no vitals filed for this visit. BP Readings from Last 2 Encounters: 11/23/24 149/83 11/23/24 160/92 Pulse Readings from Last 2 Encounters: 11/23/24 74 11/23/24 68 Resp Readings from Last 2 Encounters: 11/09/24 18 10/19/24 18 SpO2 Readings from Last 2 Encounters: 11/23/24 94% 11/23/24 99% Temp Readings from Last 2 Encounters: 11/23/24 36.7 °C (98 °F) (Tympanic) 11/09/24 36.2 °C (97.2 °F) (Tympanic) Urine protein: N/A Patient education completed for treatment? Yes Blood transfusion consent signed and complete? NA Return appointment scheduled? Yes Patient had provider visit today? No - If no provider visit must complete Pretreatment Assessment Functional Status: Functional status at today's visit: Fully active, able to carry on all pre-disease performance without restriction The drug name, dose, infusion volume, rate [...] potential gutierrez while using the heat function. PRE-TREATMENT ASSESSMENT: NEURO: denies symptoms CV/RESP: denies symptoms GI/: OTHER: burning with urination, TE in chart OTHER: rash:"soreness between legs" per , is improving PAIN: 0 Safety and Risk for Injury Patient will remain free from injury. Ensure appropriate safety devices are available. Provide and maintain safe environment. documented in this encounter Plan of Treatment Upcoming Encounters Date Type Department Care Team (Late st Contact Info) Description 01/04/2025 9:00 AM EDT Laboratory Laboratory [facility] [place] [address] [place] [phone] Cheri, Lab [facility] [address] [facility] [place] [address] 01/04/2025 10:00 AM EDT Hem/Onc Treatment Hematology/Oncology Treatment, [place] [address] [place] [phone] Cheri, Chair 9 Hem Onc [facility] [address] [place] [address] 01/19/2025 1:30 PM EDT Laboratory Laboratory [facility] [place] [address] [place] [address] [place] [phone] Cheri, Lab [facility] [address] [place] [address] 01/19/2025 2:00 PM EDT Office Visit Hematology/Oncology [facility] [address] [place], [place] [address] Chandler Winter MD [address] [place], [place] [address] 01/19/2025 2:30 PM EDT Hem/Onc Treatment Hematology/Oncology Treatment, [place] [address] [place], [place] [phone] 02/03/2025 1:30 PM EDT Telemedicine Psychiatry Diogo Squires [address] [place] [address] Princess Kwon MD [address] [place] [address] 03/15/2025 3:00 PM EDT Procedure Only Urology, [facility] [address] [place] [phone] Roberto Edwards MD [address] [facility] [place], [place] [id number] 04/23/2025 10:40 AM EDT Telemedicine Neurology [address] [place] [address] Nan Miller MD [address] [place], [place] [phone] 04/29/2025 8:00 AM EDT Office Visit Pulmonary Medicine, [facility] [address] [place] [phone] Luigi Bass MD [address] [facility] [id number] 05/25/2025 9:00 AM EDT Office Visit Family Practice [facility] [address] [place] [address] Rema Carpenter CRNP [address] [place] [address] 06/08/2025 3:30 PM EDT Procedure Only Urology, [facility] [address] [place] [phone] Roberto Edwards MD [address] [place] [address] 06/17/2025 2:20 PM EDT Office Visit Nephrology, [facility] 200 [facility] [place] [address] Reece Cross MD 200 [facility] [place] [address] 11/23/2025 9:40 AM EDT Office Visit Family Practice [facility] [address] [place] [address] Henrik Campbell DO [address] [place] [address] Scheduled Procedures Name Priority Associated Diagnoses Date/Ti me ESOPHAGOGASTRODUODENOSCOPY ( EGD), FLEXIBLE, TRANSORAL, DIAGNOSTIC Recall Evans's esophagus with esophagitis Health Maintenance Due Date Last Done Comments Adult Wellness Visit 12/16/2019 12/15/2018 Depression Monitoring 12/22/2024 12/23/2023 Albumin/Creatinine Ratio 05/04/20252 024, 11/06/2023, 03/22/2023, Additional history exists COVID-19 Vaccine ( season) 2025 11/03/2024, 07/17/2021, 11/22/2020, Additional history exists GFR 06/22/2025 12/21/2024, 11/24, 11/23/2024, Additional history exists CKD PHOS USE SMARTSET 68551 08/03/2025 08/03/2024, 1 09/20/2023 HbA1c 11/23/2025 11/23/2024, 10/2024, 05/04/2024, Additional history exists CKD HGB USE SMARTSET 18784 12/21/202512/21, 12/21/2024, 12/07/2024, Additional history exists Colonoscopy [...] this encounter Medical Devices Implanted Type Area Choreography Director Device Identifier Shelf Expiration Date Model / Serial / Lot Lens Intraoc 19.5 - [id number] - [id number] Implanted:Qty : 1 on 12/07/2021 by Eulogio Barrios MD at OR [facility] Left: Eye BAUSCH 07/25/2026 [id number] / [id number] / [id number] Lens Intraoc 19.5 - [id number] - [id number] Implanted:Qty : 1 on 12/19/2021 by Eulogio Barrios MD at OR [facility] Right: Eye BAUSCH 07/25/2026 [id number] / [id number] / [id number] Port Implant W8f Poly Cath - [id number] Implanted:Qty : 1 on 01/08/2024 by Austin rEvin MD at OR [facility] Right: Chest CR BARD : PERIPHERAL VASCULAR [id number] 01/23/2025 [id number] / / [id number] documented as of this encounter Visit Diagnoses Diagnosis Urothelial carcinoma of kidney, right (HCC)- Primary documented in this encounter Administered Medications Inactive Administered Medications - up to 3 most recent administrations Medication Order MAR Action Action Date Dose Rate Site Nivolumab (Opdivo) 240 mg in NSS 100 mL infusion 240 mg, IV Piggyback, ONCE, 1 dose, On Sat12/07/24 at 1200, Administer over 30 Minutes, DO NOT SHAKE Use a sterile, non-pyrogenic, low protein binding in-line filter (0.2 micrometer-1.2 micrometer)Indications:Urot helial carcinoma of kidney, right (HCC) Start Infusion 12/07/2024 10:23 AM EDT 240 mg 258 mL/hr NSS infusion Intravenous, at 50 mL/hr, PRN, Starting on Sat12/07/24 at 1130, Until Sat12/07/24 at 1512, Maintenance lineIndications:Urothelial carcinoma of kidney, right (HCC) Start Infusion 12/07/2024 10:22 AM EDT 50 mL/hr sodium chloride 0.9 % flush/inj 20 mL 20 mL, IV Push, PRN IV Flush and Lock, Starting on Sat12/07/24 at 1015, Until Sat12/07/24 at 1512, Do not flush if lock, PICC, or central line not in place; IV infusing or unable to flush. For midlines and central lines. For IV Flush and Lock, IVAD is flushed with a total of 20 mL Normal Saline, 10 mL of Normal Saline Flush with 10 mL of Normal Saline acting as IV LOCK.Indications:Urothelial carcinoma of kidney, right (HCC) Given 12/07/2024 11:00 AM EDT 20 mL documented in this encounter Advance Directives Documents on File Type Date Recorded Patient Inbound Sales Consultant Expl anation Advance Directives and Living [...] Agents on File Name Relationship Healthcare Agent [facility] p Communication Roma Gutiérrez Spouse Health Care Agen t (per Health Care Power of Command Post Craftsman document) Care Teams It Sales Executive Relationship Specialty Start Date End Date Henrik Campbell DO [address] [place] [address] PCP - General Family Medicine 06/02/18 documented as of this encounter
--- OUTSIDE RECORDS SUMMARY | 2025-01-05 06:42 | External Medical Summary | Summary of Care ---
Author Name Unknown Organization [facility] Address [address] [facility] [place] [address] Phone [phone] Care Team Providers Care Manager Strategic Development Name Role Phone Campbell Henrik Brandgabbi Primary Care Provider Encounter Details Date Type Department Care Team (Late st Contact Info) Description 12/30/2024 Orders Only Hematology/Oncology [facility] [address] [place] [address] Chandler Winter MD [address] [place] [address] Allergies Active Allergy Reactions Criticality Noted Date [...] Budesonide 32 MCG/ACT Nasal Suspension Administer 1 [place] into nostril in the morning. Active Rimegepant [...] Tablet before bedtime. 180 Tablet 5 11/24/19 Active Nitrofurantoin Monohyd Macro 100 MG Oral Capsule (Macrobid) Take 1 Capsule by mouth in the morning and 1 Capsule before bedtime. With food.. 20 Capsule 12/26/19 Active Hospital, Clinic, or Other Facility Administered [...] 07/09/2024 Does the household have a re lar source of income? (Household - for ages [...] Kenzie Pantoja RN documented in this encounter Plan of Treatment Upcoming Encounters Date Type Department Care Team (Late st Contact Info) Description 01/04/2025 9:00 AM EDT Laboratory Laboratory [facility] [place] [address] [place] [address] [phone] [place] [address] 01/04/2025 10:00 AM EDT Hem/Onc Treatment Hematology/Oncology Treatment, [place] [address] [place] [phone] Cheri, Chair 9 Hem [place] [address] 01/19/2025 1:30 PM EDT Laboratory Laboratory [place] [address] [place] [phone] Cheri Lab [place] [address] [place] [address] 01/19/2025 2:00 PM EDT Office Visit Hematology/Oncology [facility] [address] [facility] [place] [phone] Chandler Winter MD [address] [facility] [place] [address] 01/19/2025 2:30 PM EDT Hem/Onc Treatment Hematology/Oncology Treatment, [place] 200 [facility] [place], [place] [phone] 02/03/2025 1:30 PM EDT Telemedicine Psychiatry Diogo Squires [address] [place] [phone] Princess Kwon MD [address] [place], [place] [phone] 03/15/2025 3:00 PM EDT Procedure Only Urology, [facility] [address] [place] [phone] Roberto Edwards MD [address] [place] [address] 04/23/2025 10:40 AM EDT Telemedicine Neurology Di[address] [place] [address] Nan Miller MD [address] [place], [place] [id number] 04/29/2025 8:00 AM EDT Office Visit Pulmonary Medicine, [facility] [address] [place] [address] Luigi Bass MD [address] [place] [address] 05/25/2025 9:00 AM EDT Office Visit [facility] [address] [place] [address] Rema Carpenter CRNP [address] [place] [address] 06/08/2025 3:30 PM EDT Procedure Only Urology, [facility] [address] [place] [address] Roberto Edwards MD [address] [place] [address] 06/17/2025 2:20 PM EDT Office Visit Nephrology, [facility] [address] [facility] [place] [address] Reece Cross MD [address] [place] [address] 11/23/2025 9:40 AM EDT Office Visit [facility] [address] [place] [address] Henrik Campbell DO [address] [place] [address] Scheduled Procedures Name Priority Associated Diagnoses Date/Ti [...] Additional history exists CKD PHOS USE SMARTSET 48297 08/03/2025 08/03/2024, 1 09/20/2023 HbA1c 11/23/2025 11/23/2024, 03/0 10/2024, 05/04/2024, Additional history exists CKD HGB USE SMARTSET 49948 12/21/202512/21, 12/21/2024, 12/07/2024, Additional history exists Colonoscopy [...] this encounter Medical Devices Implanted Type Area Administrative Services Specialist Device Identifier Shelf Expiration Date Model / Serial / Lot Lens Intraoc 19.5 - [id number] - [id number] Implanted:Qty : 1 on 12/07/2021 by Eulogio Barrios MD at OR [facility] Left: Eye BAUSCH 07/25/2026 [id number] / [id number] / [id number] Lens Intraoc 19.5 - [id number] - [id number] Implanted:Qty : 1 on 12/19/2021 by Eulogio Barrios MD at OR [facility] Right: Eye BAUSCH 07/25/2026 [id number] / [id number] / [id number] Port Implant W8f Poly Cath - [id number] Implanted:Qty : 1 on 01/08/2024 by Austin Ervin MD at OR [facility] Right: Chest CR BARD : PERIPHERAL VASCULAR [id number] 01/23/2025 [id number] / / [id number] documented as of this encounter Advance Directives Documents on File Type Date Recorded Patient Shopping Inspector Expl anation Advance Directives and Living [...] Agen t (per Health Care Power of Sports Complex Attendant document) Care Teams Manager Strategic Development Relationship Specialty Start Date End Date Henrik Campbell DO [address] [place] [address] PCP - General Family Medicine 06/02/18 documented as of this encounter
--- OUTSIDE RECORDS SUMMARY | 2025-01-05 06:42 | External Medical Summary ---
Author Name Unknown Address Unknown Organization K01:[facility] [place] - [address] [place] [address] Laboratory Report Ordering Provider Test Date Status JEAN PIERRE SON 01/04/2025 08:57:55 Final Observation Date Value Abnormality Reference (Units ) Status TSH 01/04/2025 08:57:55 5.34 Above high normal 0. 27-4.20 (uIU/mL) Final Performing Location [facility] - [address] [place] [address]
--- OUTSIDE RECORDS SUMMARY | 2025-01-05 06:42 | External Medical Summary ---
Author Name Unknown Address Unknown Organization K09:[facility] [place] [address] Laboratory Report Ordering Provider Test Date Status JEAN PIERRE SON 01/04/2025 08:57:55 Final Observation Date Value Abnormality Reference (Units ) Status WBC, Total 01/04/2025 08:57:55 10.18 4.00-10.8 0 (K/uL) Final RBC 01/04/2025 08:57:55 4.21 4.50-5.25 (M/uL) Final Hemoglobin 01/04/2025 08:57:55 13.6 Below low normal 14 .0-16.8 (g/dL) Final HCT 01/04/2025 08:57:55 40.4 40.0-48.4 (%) Final MCV 01/04/2025 08:57:55 96.0 82.0-99.5 (fL) Final MCH 01/04/2025 08:57:55 32.3 27.0-34.0 (pg) Final MCHC 01/04/2025 08:57:55 33.7 32.0-36.0 (g/dL) Final RDW 01/04/2025 08:57:55 12.9 11.5-15.5 (%) Final Platelets 01/04/2025 08:57:55 192 140-400 (K /uL) Final MPV 01/04/2025 08:57:55 9.6 6.6-11.1 ( fL) Final Performing Location [facility] [place] [address]
--- OUTSIDE RECORDS SUMMARY | 2025-01-05 06:42 | External Medical Summary ---
Author Name Unknown Address Unknown Organization K01:LAB[facility]ATORY [facility] - [address] [place] [address] Laboratory Report Ordering Provider Test Date Status JEAN PIERRE SON 01/04/2025 08:57:55 Final Observation Date Value Abnormality Reference (Units ) Status T4, Free 01/04/2025 08:57:55 1.2 0.9-1.7 (n g/dL) Final Performing Location LABORATORY [facility] - [address] [place] [address]
--- OUTSIDE RECORDS SUMMARY | 2025-01-05 06:42 | External Medical Summary | Summary of Care ---
Author Name Unknown Organization [facility] Address [address] [place] [address] Phone [phone] Care Team Providers Care Manual Qa Tester Name Role Phone Henrik Campbell DO Primary Care Provider Reason for Visit * Reason Comments Outpatient Testing Encounter Details Date Type Department Care Team (Late st Contact Info) Description 01/04/2025 9:00 AM EDT Laboratory Laboratory [facility] Cheri [place] [address] [place] [phone] [place], Lab Scenery [address] [place] [address] Urothelial carcinoma of kidney, right (HCC); Encounter for long-term (current) use of medications Allergies Active Allergy Reactions Criticality Noted Date [...] Budesonide 32 MCG/ACT Nasal Suspension Administer 1 Martin into nostril in the morning. Active Rimegepant [...] No 07/09/2024 Does the household have a [facility] source of income? (Household - for ages [...] Description 01/19/2025 1:30 PM EDT Laboratory Laboratory [facility] [place] [address] [place] [phone] Hamida Alonzo [address] [place] [address] 01/19/2025 2:00 PM EDT Office Visit Hematology/Oncology [facility] [place]ri [place] [address] [place] [phone] Chandler Winter MD [address] [place] [address] 01/19/2025 2:30 PM EDT Hem/Onc Treatment Hematology/Oncology Treatment, [place] [address] [place] [phone] [place], Chair 4 Hem Onc Scenery [address] [place] [address] 02/03/2025 1:30 PM EDT Telemedicine Psychiatry [place] [address] [place] [phone] Princess Kwon MD [address] [place] [address] 03/15/2025 3:00 PM EDT Procedure Only Urology, [facility] [address] [place] [address] Roberto Edwards MD [address] [place] [id number] 04/23/2025 10:40 AM EDT Telemedicine Neurology [place] [address] [place] [address] Nan Miller MD [address], [place] [id number] 04/29/2025 8:00 AM EDT Office Visit Pulmonary Medicine, [facility] [address] [place] [phone] Luigi Bass MD [address] [place] [address] 05/25/2025 9:00 AM EDT Office Visit Family Practice [facility] [address] [place] [address] Rema Carpenter CRNP [address] [place] [address] 06/08/2025 3:30 PM EDT Procedure Only Urology, [facility] [address] [place] [phone] Roberto Edwards MD [address] [place] [address] 06/17/2025 2:20 PM EDT Office Visit Nephrology, Donald [place] [address] [place] [address] Reece Cross MD [address] [place] [address] 11/23/2025 9:40 AM EDT Office Visit Family Practice [facility] [address] [place] [address] Henrik Campbell DO [address] [place] [address] Pending Results Name Type Priority Associated Diagnoses Date /Time TSH WITH FREE T4 IF INDICATED Lab STAT Urothelial carcinoma of kidney, right (HCC) Encounter for long-term (current) use of medications 01/04/2025 8:57 AM EDT Scheduled Procedures Name Priority Associated [...] Additional history exists CKD PHOS USE SMARTSET 15526 08/03/2025 08/03/2024, 1 09/20/2023 HbA1c 11/23/2025 11/23/2024, 10/2024, 05/04/2024, Additional history exists CKD HGB USE SMARTSET 01007 01/04/202601/04, 01/04/2025, 12/21/2024, Additional history exists Colonoscopy [...] this encounter Medical Devices Implanted Type Area Home Theater Experience Expert Device Identifier Shelf Expiration Date Model / Serial / Lot Lens Intraoc 19.5 - [id number] - [id number] Implanted:Qty : 1 on 12/07/2021 by Eulogio Barrios MD at OR [facility] Left: Eye BAUSCH 07/25/2026 [id number] / [id number] / [id number] Lens Intraoc 19.5 - [id number] - [id number] Implanted:Qty : 1 on 12/19/2021 by Eulogio Barrios MD at OR [facility] Right: Eye BAUSCH 07/25/2026 [id number] / [id number] / [id number] Port Implant W8f Poly Cath - [id number] Implanted:Qty : 1 on 01/08/2024 by Austin Ervin MD at OR [facility] Right: Chest CR BARD : PERIPHERAL VASCULAR [id number] 01/23/2025 [id number] / / [id number] documented as of this encounter Procedures Procedure Name Priority Date/Time Associated Diagnosis Comments DIFFERENTIAL, AUTOMATED STAT 01/04/2025 8:57 AM EDT Urothelial carcinoma of kidney, right (HCC) COMPREHENSIVE METABOLIC PANEL STAT 01/04/2025 8:57 AM EDT Urothelial carcinoma of kidney, right (HCC) CBC STAT 01/04/2025 8:57 AM EDT Urothelial carcinoma of kidney, right (HCC) CBC STAT 01/04/2025 8:57 AM EDT Urothelial carcinoma of kidney, right (HCC) DIFFERENTIAL, TECHNOLOGIST REVIEW Routine 01/04/2025 8:57 AM EDT Urothelial carcinoma of kidney, right (HCC) documented in this encounter Results * DIFFERENTIAL, TECHNOLOGIST REVIEW (01/04/2025 8:57 AM EDT) Pathologist [facility] 01/04/2025 9:19 AM EDT [facility] Blood Venous blood specimen / Unknown Venipuncture / Unknown 01/04/2025 8:57 AM EDT 01/04/2025 8:57 AM EDT us Chandler Winter MD LAB BLOOD ORDERABLES Fin al Result [facility] [address] [place] [address] * (ABNORMAL) DIFFERENTIAL, AUTOMATED (01/04/2025 8:57 AM EDT) Pathologist [facility] WBC 10.18 4.00 - 10.80 K/uL 01/04/2025 9:19 AM EDT [facility] 56- Neutrophils % 76.8(H) 40.0 - 75.0 % 01/04/2025 9:19 AM EDT [facility] 56-02 Lymphocytes % 7.9(L) 18.0 - 42.0 % 01/04/2025 9:19 AM EDT [facility] 56- Monocytes % 13.9(H) 1.0 - 11.0 % 01/04/2025 9:19 AM EDT [facility] 56- Eosinophils % 1.0 0.0 - 6.0 % 01/04/2025 9:19 AM EDT [facility] 56- Basophils % 0.4 0.0 - 2.0 % 01/04/2025 9:19 AM EDT [facility] 56-02 Absolute Neutrophils 7.82(H) 1.80 - 7.70 K/uL 01/04/2025 9:19 AM EDT [facility] 56- Absolute Lymphocytes 0.80(L) 1.00 - 4.80 K/ul 01/04/2025 9:19 AM EDT [facility] 56-02 Absolute Monocytes 1.42(H) 0.00 - 1.10 K/uL 01/04/2025 9:19 AM EDT [facility] 56-02 Absolute Eosinophils 0.10 0.00 - 0.70 K/uL 01/04/2025 9:19 AM EDT [facility] 56-02 Absolute Basophils 0.04 0.00 - 0.20 K/uL 01/04/2025 9:19 AM EDT [facility] 56-02 Blood Venous blood specimen / Unknown Venipuncture / Unknown 01/04/2025 8:57 AM EDT 01/04/2025 8:57 AM EDT us Chandler Winter MD LAB BLOOD ORDERABLES Fin al Result [facility] [address] [place] [address] * (ABNORMAL) CBC (01/04/2025 8:57 AM EDT) WBC 10.18 4.00 - 10.80 K/uL 01/04/2025 9:19 AM EDT [facility] RBC 4.21 4.50 - 5.25 M/uL 01/04/2025 9:19 AM EDT [facility] HGB 13.6(L) 14.0 - 16.8 g/dL 01/04/2025 9:19 AM EDT [facility] HCT 40.4 40.0 - 48.4 % 01/04/2025 9:19 AM EDT [facility] 56 MCV 96.0 82.0 - 99.5 fL 01/04/2025 9:19 AM EDT [facility] 56 MCH 32.3 27.0 - 34.0 pg 01/04/2025 9:19 AM EDT [facility] MCHC 33.7 32.0 - 36.0 g/dL 01/04/2025 9:19 AM EDT [facility] RDW 12.9 11.5 - 15.5 % 01/04/2025 9:19 AM EDT [facility] PLT 192 140 - 400 K/uL 01/04/2025 9:19 AM EDT [facility] MPV 9.6 6.6 - 11.1 fL 01/04/2025 9:19 AM T [facility] Blood Venous blood specimen / Unknown Venipuncture / Unknown 01/04/2025 8:57 AM EDT 01/04/2025 8:57 AM EDT Chandler Winter MD LAB BLOOD ORDERABLES Fin al Result [facility] [address] [place], [place] [address] * (ABNORMAL) COMPREHENSIVE METABOLIC PANEL (01/04/2025 8:57 AM EDT) BUN 25(H) 6 - 20 mg/dL 01/04/2025 9:29 AM EDT [facility] CREATININE 1.9(H) 0.6 - 1.2 mg/dL 01/04/2025 9:29 AM [facility] 56 EGFR 34(L) >=60 mL/min 01/04/2025 9:29 AM [facility] 56- Comment:eGFR is calculated b ased on the CKD-EPI 2020 equation. SODIUM 138 135 - 146 mmol/L 01/04/2025 9:29 AM [facility] 56 POTASSIUM 4.0 3.5 - 5.1 mmol/L 01/04/2025 9:29 AM [facility] 56 CHLORIDE 105 98 - 107 mmol/L 01/04/2025 9:29 AM [facility] 56 CO2 17(L) 22 - 32 mmol/L 01/04/2025 9:29 AM [facility] 56 ANION GAP 16(H) 7 - 15 mmol/L 01/04/2025 9:29 AM [facility] 56 GLUCOSE 140(H) 70 - 120 mg/dL 01/04/2025 9:29 AM [facility] 56 Albumin 4.1 3.8 - 5.0 g/dL 01/04/2025 9:29 AM [facility] 56 AST 23 10 - 50 U/L 01/04/2025 9:29 AM [facility] 56 Alkaline Phosphatase 49 35 - 130 U/L 01/04/2025 9:29 AM [facility] 56 Bilirubin, Total 0.6 <=1.2 mg/dL 01/04/2025 9:29 AM [facility] 56 CALCIUM 8.9 8.4 - 10.2 mg/dL 01/04/2025 9:29 AM [facility] 56 Protein 7.6 6.0 - 8.3 g/dL 01/04/2025 9:29 AM [facility] 56 ALT 15 10 - 50 U/L 01/04/2025 9:29 AM [facility] 56 Blood Venous blood specimen / Unknown Venipuncture / Unknown 01/04/2025 8:57 AM EDT 01/04/2025 8:57 AM EDT Chandler Winter MD LAB BLOOD ORDERABLES Fin al Result [facility] [address] [place] [id number] documented in this encounter Visit Diagnoses Diagnosis Urothelial carcinoma of kidney, right (HCC) Encounter for long-term (current) use of medications Encounter for long-term (current) use of other medications documented in this encounter Advance Directives Documents on File Type Date Recorded Patient Swage Toolsetter Expl anation Advance Directives and Living Will [...] Agen t (per Health Care Power of Telecommunications Consultant document) Care Teams Manual Qa Tester Relationship Specialty Start Date End Date Henrik Campbell DO [address] [place] [address] PCP - General Family Medicine 06/02/18 documented as of this encounter
--- OUTSIDE RECORDS SUMMARY | 2025-01-05 06:42 | External Medical Summary ---
Author Name Unknown Address Unknown Organization K09[facility] [place] [address] Laboratory Report Ordering Provider Test Date Status JEAN PIERRE SON 01/04/2025 08:57:55 Final Observation Date Value Abnormality Reference (Units ) Status SYNC LEUKOCYTES IN BLOOD BY AUTOMATED COUNT 01/04/2025 08:57:55 10.18 4.00-10.80 (K/uL) Final Segs 01/04/2025 08:57:55 76.8 Above high normal 40.0-75.0 (%) Final Lymphs % 01/04/2025 08:57:55 7.9 Below low normal 18.0-42.0 (%) Final Monos 01/04/2025 08:57:55 13.9 Above high normal 1.0-11.0 (%) Final Eosinophils 01/04/2025 08:57:55 1.0 0.0-6.0 (%) Final Basos 01/04/2025 08:57:55 0.4 0.0-2.0 (%) Final Absolute Segs 01/04/2025 08:57:55 7.82 Above high normal 1.80-7.70 (K/uL) Final Lymphs, absolute 01/04/2025 08:57:55 0.80 Below low normal 1.00-4.80 (K/ul) Final Monos, Abs 01/04/2025 08:57:55 1.42 Above high normal 0.00-1.10 (K/uL) Final Eos, Abs 01/04/2025 08:57:55 0.10 0.00-0.70 (K/uL) Final Basos, Abs 01/04/2025 08:57:55 0.04 0.00-0.20 (K/uL) Final Performing Location [facility] [place] [address]
--- OUTSIDE RECORDS SUMMARY | 2025-01-05 06:43 | External Medical Summary | Summary of Care ---
Author Name Unknown Organization [facility] Address [address] [place] [address] Phone [phone] Care Team Providers Care Setter Off Name Role Phone Adrian Henrik Brandgabbi Primary Care Provider Reason for Visit * Reason Onset Date Comments Test Results 12/25/2024 Encounter Details Date Type Department Care Team (Late st Contact Info) Description 12/25/2024 Telephone Urology Woody Serrano [address] [place] [address] [place] [address] Roberto Edwards MD [address] [place] [address] Test Results Allergies Active Allergy Reactions Criticality Noted Date Comments Azelastine Unknown 02/01/2021 Onabotulinumtoxina Other (Please comment) High 01/20/2021 Swallowing difficulty after injection documented as of this encounter (statuses as of 12/29/2024) Medications VITAMIN B-12 100 MCG PO TABS [...] Budesonide 32 MCG/ACT Nasal Suspension Administer 1 [place] into nostril in the morning. Active Rimegepant [...] With food.. 20 Capsule 12/26/19 25 Active Nitrofurantoin Monohyd Macro 100 MG [...] as of this encounter (statuses as of 12/29/2024) Active Problems Problem Noted Date Diagnosed Date [...] as of this encounter (statuses as of 12/29/2024) Resolved Problems Problem Noted Date Diagnosed Date [...] as of this encounter (statuses as of 12/29/2024) Immunizations Name Administration Dates Next Due COVID-19 [...] of Assessment Author No 11/27/2023 2:35 PM EDKenzie Garzon RN * Because of a physical, mental, [...] Kenzie Pantoja RN documented in this encounter Miscellaneous Notes * Telephone Encounter - Rema Swan LPN - 12/29/2024 9:47 AM EDT Spoke with pt and . Patient states burning is improved, still having frequency. Taking Macrobidx 3 days. Advised patient to keep taking antibiotics, call if not improved by Saturday, call if symptoms worsen in the meantime. Advised patient to push water. * Telephone Encounter - Alejandra Patel OSA - 12/29/2024 9:39 AM EDT Pt returning phone call, attempted transfer to clinic with no answer. TT sent, please return call to mobile number listed. * Telephone Encounter - Rema Swan LPN - 12/29/2024 8:54 AM EDT lmtcb * Telephone Encounter - Samara Alexander OSA - 12/28/2024 1:23 PM EDT Pt's spouse Roma is calling back returning call to Radha. They pickup prescription and she is unsure if he is feeling better and suggest it would be better to speak to him. * Telephone Encounter - Radha Sanchez LPN - 12/28/2024 1:09 PM EDT lmtcb * Telephone Encounter - Radha Sanchez LPN - 12/25/2024 12:07 PM EDT Lmtcb-left detailed message to fruit picker machine operator abx, call with further questions * Telephone Encounter - Roberto Edwards MD - 12/25/2024 11:43 AM EDT Patient's urine culture is positive. Covered with Macrobid. Thanks, HM documented in this encounter Plan of Treatment Upcoming Encounters Date Type Department Care Team (Late st Contact Info) Description 01/04/2025 9:00 AM EDT Laboratory Laboratory [facility] [place] [address] [place] [phone] [place], Lab Scenery [address] [place] [address] 01/04/2025 10:00 AM EDT [facility] 200 [facility] [place] [phone] Cheri, Chair 9 Hem Onc [facility] [address] [facility] [place] [address] 01/19/2025 1:30 PM EDT Laboratory Laboratory [facility] [place] [address] [place] [phone] Cheri, Lab Scenery [address] [place] [address] 01/19/2025 2:00 PM EDT Office Visit Hematology/Oncology [facility] [address] [place] [phone] Chandler Winter MD [address] [place] [address] 01/19/2025 2:30 PM EDT [facility] [address] [facility] [phone] 02/03/2025 1:30 PM EDT Telemedicine Psychiatry [place] [address] [place] [phone] Princess Kwon MD [address] [facility] [place] [address] 03/15/2025 3:00 PM EDT Procedure Only Urology, [facility] [address] [facility] [facility] [address] [place] [address] Roberto Edwards MD [address] [place] [id number] 04/23/2025 10:40 AM EDT Telemedicine Neurology [address] [place], [place] [phone] Nan Miller MD [address] [facility] [place], [place] [address] 04/29/2025 8:00 AM EDT Office Visit Pulmonary Medicine, [facility] [place] [phone] Luigi Bass MD [address] [facility] [place] [id number] 05/25/2025 9:00 AM EDT Office Visit [facility] [place] [place] [address] Rema Carpenter CRNP [address] [facility] [place] [address] 06/08/2025 3:30 PM EDT Procedure Only Urology, [facility] [address] [facility] [place] [phone] Roberto Edwards MD [address] [place] [address] 06/17/2025 2:20 PM EDT Office Visit Nephrology, [facility] [place] [address] [place] [address] Reece Cross MD [address] [place], [place] [address] 11/23/2025 9:40 AM EDT Office Visit Family [facility] [address] [place] [address] Henrik Campbell, [address] [place] [address] Scheduled Procedures Name Priority Associated Diagnoses Date/Ti [...] Additional history exists CKD PHOS USE SMARTSET 80425 08/03/2025 08/03/2024, 1 09/20/2023 HbA1c 11/23/2025 11/23/2024, 10/2024, 05/04/2024, Additional history exists CKD HGB USE SMARTSET 64429 12/21/202512/21, 12/21/2024, 12/07/2024, Additional history exists Colonoscopy [...] this encounter Medical Devices Implanted Type Area Hydraulic Press Tender Device Identifier Shelf Expiration Date Model / Serial / Lot Lens Intraoc 19.5 - [id number] - [id number] Implanted:Qty : 1 on 12/07/2021 by Eulogio Barrios MD at OR [facility] Left: Eye BAUSCH 07/25/2026 [id number] / [id number] / [id number] Lens Intraoc 19.5 - [id number] - [id number] Implanted:Qty : 1 on 12/19/2021 by Eulogio Barrios MD at OR [facility] Right: Eye BAUSCH 07/25/2026 [id number] / [id number] / [id number] Port Implant W8f Poly Cath - [id number] Implanted:Qty : 1 on 01/08/2024 by Austin Ervin MD at OR [facility] Right: Chest CR BARD : PERIPHERAL VASCULAR [id number] 01/23/2025 [id number] / / [id number] documented as of this encounter Visit Diagnoses Diagnosis History of UTI- Primary Personal history of urinary (tract) infection documented in this encounter Advance Directives Documents on File Type Date Recorded Patient Pre Sales Technical Engineer Expl anation Advance Directives and Living Will [...] 6:46 AM 11/27/2023 1:06 PM This order re flects the patients [...] Agents on File Name Relationship Healthcare Agent [facility] Communication Roma Gutiérrez Spouse Health Care Agen t (per Health Care Power of Psychiatric Tech document) Care Teams Setter Off Relationship Specialty Start Date End Date Henrik Campbell DO [facility] [place] [address] PCP - General Family Medicine 06/02/18 documented as of this encounter
--- OUTSIDE RECORDS SUMMARY | 2025-01-05 06:43 | External Medical Summary | Summary of Care ---
Author Name Unknown Organization [facility] Address [address] [place] [facility] [place] [place] [address] Phone [phone] Care Team Providers Care Butadiene Convertor Operator Name Role Phone Ross Campbellbrian Brandgabbi Primary Care Provider Reason for Visit * Reason Onset Date Comments Test Results 12/25/2024 [facility] 12/29 Encounter Details Date Type Department Care Team (Late st Contact Info) Description 12/25/2024 Telephone Urology Woody Serrano [address] [place] [address] [place] [address] Roberto Edwards MD [address] [place] [address] Test Results ([facility] 12/29) Allergies Active Allergy Reactions Criticality Noted Date [...] Budesonide 32 MCG/ACT Nasal Suspension Administer 1 [place] into nostril in the morning. Active Rimegepant [...] Entry Date Author No 11/27/2023 2:35 PM EDKenzie Garzon RN documented in this encounter Miscellaneous Notes [...] 12:07 PM EDT Lmtcb-left detailed message to pickling machine operator abx, call with further questions * Telephone Encounter - Roberto Edwards MD - 12/25/2024 11:43 AM EDT Patient's urine culture is positive. Covered with Macrobid. Thanks, HM documented in this encounter Plan of Treatment Upcoming Encounters Date Type Department Care Team (Late st Contact Info) Description 01/04/2025 9:00 AM EDT Laboratory Laboratory [facility] Cheri [place] [address] [place] [phone] Cheri, Lab Scenery [address] [facility] [place] [address] 01/04/2025 10:00 AM EDT Hem/Onc Treatment Hematology/Oncology Treatment, [place] [address] [place] [phone] Cheri, Chair 9 Hem Onc [address] [place] [address] 01/19/2025 1:30 PM EDT Laboratory Laboratory [facility] [address] [place] [address] Hamida Alonzo [address] [place] [address] 01/19/2025 2:00 PM EDT Office Visit Hematology/Oncology [facility] [place] [address] [place] [address] Chandler Winter MD [address] [place] [address] 01/19/2025 2:30 PM EDT Hem/Onc Treatment Hematology/Oncology Treatment, [place] [address] [place] [phone] 02/03/2025 1:30 PM EDT Telemedicine Psychiatry [facility] [place] [address] [place] [address] Princess Kwon MD [address] [place] [address] 03/15/2025 3:00 PM EDT Procedure Only Urology, [facility] [address] [place] [address] Roberto Edwards MD [address] [place] [address] 04/23/2025 10:40 AM EDT Telemedicine Neurology [address] [place] [address] Nan Miller MD [address] [facility] [place] [address] 04/29/2025 8:00 AM EDT Office Visit Pulmonary Medicine, [facility] [address] [place] [address] SheliaLuigi christensen MD [address] [place] [address] 05/25/2025 9:00 AM EDT Office Visit [facility] [address] [place] [address] Rema Carpenter CRNP [address] [facility] [place] [address] 06/08/2025 3:30 PM EDT Procedure Only Urology, [facility] [address] [place] [address] Roberto Edwards MD [address] [place] [address] 06/17/2025 2:20 PM EDT Office Visit Nephrology, [facility] [address] [facility] [address] [place] [address] Reece Cross MD 200 [facility] [place] [address] 11/23/2025 9:40 AM EDT Office Visit [facility] [address] [place] [address] Henrik Campbell DO [address] [facility] [place] [address] Scheduled Procedures Name Priority Associated Diagnoses Date/Ti me ESOPHAGOGASTRODUODENOSCOPY ( EGD), FLEXIBLE, TRANSORAL, DIAGNOSTIC Recall Evans's esophagus with esophagitis Health Maintenance Due Date Last Done Comments Adult Wellness Visit 12/16/2019 12/15/2018 Depression Monitoring 12/22/2024 12/23/2023 Albumin/Creatinine Ratio 05/04/2025 024, 11/06/2023, 03/22/2023, Additional history exists COVID-19 Vaccine ( season) 2025 11/03/2024, 07/17/2021, 11/22/2020, Additional history exists GFR 06/22/2025 12/21/2024, /11/2024, 11/23/2024, Additional history exists CKD PHOS USE SMARTSET 42915 08/03/2025 08/03/2024, 1 09/20/2023 HbA1c 11/23/2025 11/23/2024, 03/0 10/2024, 05/04/2024, Additional history exists CKD HGB USE SMARTSET 91739 12/21/202512/21, 12/21/2024, 12/07/2024, Additional history exists Colonoscopy [...] this encounter Medical Devices Implanted Type Area Operations Label Clerk Device Identifier Shelf Expiration Date Model / Serial / Lot Lens Intraoc 19.5 - [id number] - [id number] Implanted:Qty : 1 on 12/07/2021 by Eulogio Barrios MD at OR [facility] Left: Eye BAUSCH 07/25/2026 [id number] / [id number] / [id number] Lens Intraoc 19.5 - [id number] - [id number] Implanted:Qty : 1 on 12/19/2021 by Eulogio Barrios MD at OR [facility] Right: Eye [employer]USC 07/25/2026 [id number] / [id number] / [id number] Port Implant W8f Poly Cath - [id number] Implanted:Qty : 1 on 01/08/2024 by Austin Ervin MD at OR [facility] Right: Chest CR BARD : PERIPHERAL VASCULAR [id number] 01/23/2025 [id number] / / [id number] documented as of this encounter Visit Diagnoses Diagnosis History of UTI- Primary Personal history of urinary (tract) infection documented in this encounter Advance Directives Documents on File Type Date Recorded Patient Lead Burner Expl anation Advance Directives and Living Will [...] Agen t (per Health Care Power of Employment Consultant document) Care Teams Butadiene Convertor Operator Relationship Specialty Start Date End Date Henrik Campbell DO [address] [place] [address] PCP - General Family Medicine 06/02/18 documented as of this encounter
--- OUTSIDE RECORDS SUMMARY | 2025-01-05 06:43 | External Medical Summary | Summary of Care ---
Author Name Unknown Organization [facility] Address [address] [facility] [place] [address] Phone [phone] Care Team Providers Care Lunchroom Food Service Supervisor Name Role Phone Campbell Henrik Brandgabbi Primary Care Provider Encounter Details Date Type Department Care Team (Late st Contact Info) Description 12/25/2024 Telephone Urology Woody Serrano [address] [place] [address] [place] [address] Roberto Edwards MD [address] [place] [address] Allergies Active Allergy Reactions Criticality Noted Date Comments Azelastine Unknown 02/01/2021 Onabotulinumtoxina Other (Please comment) High 01/20/2021 Swallowing difficulty after injection documented as of this encounter (statuses as of 12/28/2024) Medications VITAMIN B-12 100 MCG PO TABS [...] Budesonide 32 MCG/ACT Nasal Suspension Administer 1 Porter into nostril in the morning. Active Rimegepant [...] as of this encounter (statuses as of 12/28/2024) Active Problems Problem Noted Date Diagnosed Date [...] as of this encounter (statuses as of 12/28/2024) Resolved Problems Problem Noted Date Diagnosed Date [...] as of this encounter (statuses as of 12/28/2024) Immunizations Name Administration Dates Next Due COVID-19 mRNA, LNP-s, No Pre serve, 2-Dose Series ([employer]) 07/17/2021,11/22/2020,10/26/2020 Pneumococcal Conjugate Vacc, 13 Valent (Prevnar) [...] encounter Miscellaneous Notes * Telephone Encounter - Samara Alexander OSA [...] 12:07 PM EDT Lmtcb-left detailed message to burr picker abx, call with further questions * Telephone Encounter - Roberto Edwards MD - 12/25/2024 11:43 AM EDT Patient's urine culture is positive. Covered with Macrobid. Thanks, HM documented in this encounter Plan of Treatment Upcoming Encounters Date Type Department Care Team (Late st Contact Info) Description 01/04/2025 9:00 AM EDT Laboratory Laboratory [facility] Chrei [place] [address] [place] [phone] Ham[address] [place], [place] [address] 01/04/2025 10:00 AM EDT Hem/Onc Treatment Hematology/Oncology Treatment, [place] [address] [place] [phone] Cheri, Chair 9 Hem Onc [facility] [address] [place] [address] 01/19/2025 1:30 PM EDT Laboratory Laboratory [facility] [place]ri [place] [address] [place] [address] Cheri [facility] [address] [facility] [place], [place] [address] 01/19/2025 2:00 PM EDT Office Visit Hematology/Oncology [facility] Cheri [place] [address] [place] [address] Chandler Winter MD [address] [place] [address] 01/19/2025 2:30 PM EDT Hem/Onc Treatment Hematology/Oncology Treatment, [place] [address] [place] [address] 02/03/2025 1:30 PM EDT Telemedicine Psychiatry Diogo [place] [address] [place] [address] Princess Kwon MD [address] [place] [address] 03/15/2025 3:00 PM EDT Procedure Only Urology, [facility] [address] [place] [phone] Roberto Edwards MD [address] [place] [id number] 04/23/2025 10:40 AM EDT Telemedicine Neurology Paras [place] [address] [place] [address] Nan Miller MD [address] [place], [place] [phone] 04/29/2025 8:00 AM EDT Office Visit Pulmonary Medicine, [facility] [address] [place], [place] [phone] Luigi Bass MD [address] [place] [address] 05/25/2025 9:00 AM EDT Office Visit Family Practice [facility] [address] [place] [address] Rema Carpenter CRNP [address] [place] [address] 06/08/2025 3:30 PM EDT Procedure Only Urology, [facility] [address] [place] [phone] Roberto Edwards MD [address] [place] [address] 06/17/2025 2:20 PM EDT Office Visit Nephrology, [facility] [address] [facility] [place] [address] Reece Cross MD [address] [place] [address] 11/23/2025 9:40 AM EDT Office Visit Family Practice [facility] [address] [place] [address] Henrik Campbell DO [address] [place] [address] Scheduled Procedures Name Priority Associated Diagnoses Date/Ti [...] Additional history exists CKD PHOS USE SMARTSET 91311 08/03/2025 08/03/2024, 1 09/20/2023 HbA1c 11/23/2025 11/23/2024, 03/10/2024, 05/04/2024, Additional history exists CKD HGB USE SMARTSET 97763 12/21/202512/21, 12/21/2024, 12/07/2024, Additional history exists Colonoscopy [...] this encounter Medical Devices Implanted Type Area Submarine Advisory Team Watch Officer Device Identifier Shelf Expiration Date Model / Serial / Lot Lens Intraoc 19.5 - [id number] - [id number] Implanted:Qty : 1 on 12/07/2021 by Eulogio Barrios MD at OR [facility] Left: Eye BAUSC 07/25/2026 [id number] / [id number] / [id number] Lens Intraoc 19.5 - [id number] - [id number] Implanted:Qty : 1 on 12/19/2021 by Eulogio Barrios MD at OR [facility] Right: Eye BAUSC 07/25/2026 [id number] / [id number] / [id number] Port Implant W8f Poly Cath - [id number] Implanted:Qty : 1 on 01/08/2024 by Austin Ervin MD at OR [facility] Right: Chest CR BARD : PERIPHERAL VASCULAR [id number] 01/23/2025 [id number] / / [id number] documented as of this encounter Visit Diagnoses Diagnosis History of UTI- Primary Personal history of urinary (tract) infection documented in this encounter Advance Directives Documents on File Type Date Recorded Patient Solid Waste Collector Expl anation Advance Directives and Living Will [...] Agen t (per Health Care Power of [place] Headgate Operator document) Care Teams Lunchroom Food Service Supervisor Relationship Specialty Start Date End Date Henrik Campbell DO [address] [place] [address] PCP - General Family Medicine 06/02/18 documented as of this encounter
--- OUTSIDE RECORDS SUMMARY | 2025-01-05 06:43 | External Medical Summary | Summary of Care ---
Author Name Unknown Organization [facility] Address [address] [facility] [address] Phone [phone] Care Team Providers Care Materials Engineer Name Role Phone Adrian Henrik Brandgabbi Primary Care Provider Reason for Visit * Reason Comments Follow Up Treatment Encounter Details Date Type Department Care Team (Late st Contact Info) Description 12/21/2024 9:30 AM EDT Office Visit [facility] [place] [address] [facility] [id number] Renea Easley CRNP [address] [facility] [place] [address] Urothelial carcinoma of kidney, right (HCC)* Allergies [...] Budesonide 32 MCG/ACT Nasal Suspension Administer 1 Beaumont into nostril in the morning. Active Rimegepant [...] Sign Reading Time Taken Comments Blood Pressure 155/76 12/21/2024 9:24 AM EDT Pulse 65 12/21/2024 9:24 AM EDT Temperature 36.4 °C (97.5 °F) 12/21/2024 9:24 AM ED T Respiratory Rate - - Oxygen Saturation 94% 12/21/2024 9:24 AM EDT Inhaled Oxygen Concentration - - Weight 111.6 kg (246 lb) 12/21/2024 9:24 AM EDT Height - - Body Mass Index 36.33 2024 1:33 PM EDT documented in this [...] Author No 11/27/2023 2:35 PM EDT Kenzie Pantoja, EDYTA * Because of a physical, mental, [...] Kenzie Pantoja RN documented in this encounter Progress Notes * Renea Easley CRNP - 12/21/2024 9:30 AM EDT Hematology/Oncology Outpatient Clinic note [facility] [address] [place], [place] [address] Name: Josiah Gutiérrez Date: 12/20/2024 CHIEF COMPLAINT: Josiah Gutiérrez is a 84 year old male patient of Dr. Arteaga Maggy here today for f/u visit today. From Patient chart confirmed with patient. HEMATOLOGY/ONCOLOGY DIAGNOSIS: Urothelial carcinoma of kidney, right Cancer Staging pT3 pNx disease DATE OF DIAGNOSIS: 09/02/23. TREATMENT HISTORY: Right-sided hand assisted laparoscopic radical nephroureterectomy, intravesical instillation of mitomycin-C 11/27/23 Zometa 3 mg x 1 dose for hypercalcemia. ( 07/24/2024) CURRENT TREATMENT: Nivolumab 240 mg q14 Days for up to 1 Year of Therapy (01/13/24 - ) ONCOLOGY HISTORY: Patient presented with complaint of intermittent hematuria and had CT scan done on 08/06/2023 whichrevealed Ill-defined hypovascular filling defect in right posterior upper pole calyx measuring roughly 2.3 x 2.3 cm, suspicious for urothelial carcinoma. Urine cytology were equivocal. Past medical history significant for spinal stenosis, right knee arthritis, status post left knee replacement, history of chronic headache for last 15 years, occasional episode of nausea for last 5 years. Because of spinal stenosis he has numbness in the lower extremity. He is also complaining of fatigue and generalized weakness. On 09/02/2023 he underwent cystoscopy, right retrograde pyelography, right-sided diagnostic ureteroscopy with possible biopsy, fulguration and ureteral stent placement. Pathology was consistent with a low-grade urothelial neoplasm. Final Diagnosis A. Urine, Renal Pelvis, Cytology: [...] of the cellblock preparation show similar findings. Final Diagnosis A. Renal Pelvis, right renal cold cup biopsy: Superficial minute fragments of low-grade papillary urothelial carcinoma; no diagnostic evidence ofinvasion identified in material examined On 11/27/2023 he underwent Right-sided hand assisted laparoscopic radical nephroureterectomy, intravesical instillation of mitomycin-C. 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 Pathologic stage was pT3 pNx. Final Diagnosis A. Right-sided hand-assisted laparoscopic radical nephroureterectomy: Superficially invasive papillary urothelial carcinoma, high-grade (see synoptic data) No lymphovascular or perineural invasion seen Margins are uninvolved in sections examined Pathologic stage (AJCC 8th edition): pT3, pN0 B. Lymph nodes, right periureteral tissue, biopsy: Two lymph nodes, no carcinoma seen (0/2) at 1436 Synoptic Report URETER, RENAL PELVIS: Resection 8th Edition - Protocol posted: 05/15/2023URETER, RENAL PELVIS: RESECTION - All Specimens SPECIMEN Procedure Nephroureterectomy Specimen Laterality Right TUMOR Tumor Site Renal pelvis Tumor Size Greatest Dimension (Centimeters): 4 cm Additional Dimension (Centimeters) 3 cm 1.8 cm Histologic Type Urothelial carcinoma, invasive (conventional) Histologic Grade High-grade Tumor Extent Invades subepithelial connective tissue Lymphatic and / or Vascular Invasion Not identified Tumor Configuration Papillary MARGINS Margin Status for Invasive Carcinoma All margins negative for invasive carcinoma Closest Margin(s) to Invasive Carcinoma renal capsule Distance from Invasive Carcinoma to Closest Margin 5 mm Margin Status for Carcinoma in Situ / Noninvasive Papillary Urothelial Carcinoma All margins negative for carcinoma in situ / noninvasive papillary urothelial carcinoma REGIONAL LYMPH NODES Regional Lymph Node Status Not applicable (no regional lymph nodes submitted or found) pTNM CLASSIFICATION (AJCC 8th Edition) Reporting of pT, pN, and (when applicable) pM categories is based on information available to the pathologist at the time the report is issued. As per the AJCC (Chapter 1, 8th Ed.) it is the managingphysician’s responsibility to establish the final pathologic stage based upon all pertinent information, including but potentially not limited to this pathology report. pT Category pT3 pN Category pN not assigned (no nodes submitted or found) He developed a postoperative ileus which prolonged his hospitalization. He quit smoking about 40 years ago. Denies drinking. Family history significant for father was diagnosed of colon cancer at the age of 42. Mother was diagnosed of lung cancer and his son was diagnosed of colon cancer. Interval History: Follow-up PET scan done on 05/11/2024 unfortunately shows new metabolically active mediastinal bilateral hilar lymphadenopathy and new metabolically active focus at the GE junction. Patient had upperendoscopy done on 01/22/2024 which revealed esophageal mucosal changes secondary to the establish showed segments Barretts disease. He had bronchoscopy and FNA done which is negative or not diagnostic. The differential diagnosis for lymphadenopathy include metastatic recurrent urothelial cancer or immune related changes lymphadenopathy. They look very suspicious for metastatic disease to me on the PET scan. On the PET scan there is a new metabolically active focus at the GE junction. Patient had upper endoscopy and endoscopic ultrasound and FNA of the lymph node done which is negative for malignancy. Discussed with the patient about diagnosis reviewed all the available blood tests, PET scan and pathology finding with him. He had a biopsy done twice which are negative for malignancy. Most likely the finding on the PET scan may be reactive changes because of the immunotherapy. Follow-up CT scan done on 09/07/2023 revealed no evidence of new disease or progression. HISTORY OF PRESENT ILLNESS: Josiah Gutiérrez is a 84 year old male with a history as outlined above. Currently here for f/u visit today and consideration for C21D1 of treatment. Bowels are moving well with just a stool softener. Having increased joint pain in back, right knee and right shoulder. Had to stop his indomethacin d/t kidney function. Going to try Turmeric at recommendation of PCP. Headaches are at baseline. Weight is stable. Skin is dry and itchy. Has a prescription cream he utilizes with relief. Has baseline SOB that is not worse with treatment. Denies cough or chest pain. Past Medical History: Diagnosis Date Allergic rhinitis Evans's esophagus 09/24/2013 Chronic sinusitis Headache(784.0) chronic frontal headaches lesion under left arm Other ringworm-left cheek Rash Nec Past Surgical History: Procedure Laterality Date BRONCHOSCOPY, DIAGNOSTIC N/A 06/08/2024 BRONCHOSCOPY DIAGNOSTIC WITH OR WITHOUT WASHING performed by Lois Rodas MD at ENDOSCOPY [facility] COLONOSCOPY, DIAGNOSTIC (RECTUM) 06/23/2015 adenomatous & hyperplastic polyps, diverticulosis, repeat 3 yrs/COLONOSCOPY FLEXIBLE PROXIMAL DIAGNOSTIC performed by Delfina Butcher DO at ENDOSCOPY [facility] COLONOSCOPY, DIAGNOSTIC (RECTUM) 07/23/2018 adenomatous polyps, diverticulosis, repeat 3 yrs/COLONOSCOPY FLEXIBLE PROXIMAL DIAGNOSTIC performedby Delfina Butcher DO at ENDOSCOPY [facility] COLONOSCOPY, DIAGNOSTIC (RECTUM) 08/03/2021 adenomatous, hyperplastic & serrated adenomatous polyps, diverticulosis, repeat 3 yrs / COLONOSCOPY FLEXIBLE PROXIMAL DIAGNOSTIC performed by Delfina Butcher DO at ENDOSCOPY [facility] COLONOSCOPY, DIAGNOSTIC (RECTUM) 01/22/2024 moderate diverticulosis/hemorrhoids/one polyp, removed not retrieved/COLONOSCOPY FLEXIBLE PROXIMAL DIAGNOSTIC performed by Delfina Butcher DO at ENDOSCOPY [facility] CYSTOURETERO W/BIOPSY Right 09/02/2023 CYSTOURETHROSCOPY URETEROSCOPY WITH BIOPSY AND OR FULGURATION LESION performed by Roberto Edwards MD at OR [facility] CYSTOURETERO W/LITHOTRIPSY 10/13/2008 EGD, FLEXIBLE, DIAGNOSTIC 09/24/2013 ESOPHAGOGASTRODUODENOSCOPY (EGD), FLEXIBLE, TRANSORAL, DIAGNOSTIC performed by Jay [facility]er [facility] EGD, FLEXIBLE, DIAGNOSTIC 01/04/2014 ESOPHAGOGASTRODUODENOSCOPY (EGD), FLEXIBLE, TRANSORAL, DIAGNOSTIC performed by Jay [facility]er [facility] EGD, FLEXIBLE, DIAGNOSTIC 06/09/2015 Barretts, repeat 1 yr/ESOPHAGOGASTRODUODENOSCOPY (EGD), FLEXIBLE, TRANSORAL, DIAGNOSTIC performed by Delfina Butcher DO at ENDOSCOPY [facility] EGD, FLEXIBLE, DIAGNOSTIC 06/12/2016 Barretts, duodenal lipoma, repeat 1 yr/ESOPHAGOGASTRODUODENOSCOPY (EGD), FLEXIBLE, TRANSORAL, DIAGNOSTIC performed by Delfina Butcher DO at ENDOSCOPY [facility] EGD, FLEXIBLE, DIAGNOSTIC 08/07/2017 Barretts, repeat 3 yrs/ESOPHAGOGASTRODUODENOSCOPY (EGD), FLEXIBLE, TRANSORAL, DIAGNOSTIC performed by Delfina Butcher DO at ENDOSCOPY [facility] EGD, FLEXIBLE, DIAGNOSTIC 07/23/2018 Barretts w/ LGD/ESOPHAGOGASTRODUODENOSCOPY (EGD), FLEXIBLE, TRANSORAL, DIAGNOSTIC performed by Delfina Butcher DO at ENDOSCOPY [facility] EGD, FLEXIBLE, DIAGNOSTIC 07/28/2019 Barretts, gastritis, duodenal polyp, repeat 1 yr/ESOPHAGOGASTRODUODENOSCOPY (EGD), FLEXIBLE, TRANSORAL, DIAGNOSTIC performed by Delfina Butcher DO at ENDOSCOPY [facility] EGD, FLEXIBLE, DIAGNOSTIC 10/28/2020 Barretts, duodenal lipoma, repeat 1 yr / [facility] EGD, FLEXIBLE, DIAGNOSTIC 08/03/2021 Barretts, repeat 3 yrs / ESOPHAGOGASTRODUODENOSCOPY (EGD), FLEXIBLE, TRANSORAL, DIAGNOSTIC performed by Delfina Butcher DO at ENDOSCOPY [facility] EGD, FLEXIBLE, DIAGNOSTIC 01/22/2024 biopsies show mild inflammatory changes/repeat 3 years/ESOPHAGOGASTRODUODENOSCOPY (EGD), FLEXIBLE, TRANSORAL, DIAGNOSTIC performed by Delfina Butcher DO at ENDOSCOPY [facility] EGD, W/ENDOSCOPIC US 05/20/2013 UPPER GI ENDOSCOPY ENDOSCOPIC ULTRASOUND performed by Delfina Butcher DO at [facility] EGD, W/ENDOSCOPIC US 06/07/2014 fatty liver, lipoma of the duodenum, Barretts, repeat 1 yr/ESOPHAGOGASTRODUODENOSCOPY (EGD), FLEXIBLE, TRANSORAL, ENDOSCOPIC ULTRASOUND performed by Delfina Butcher DO at ENDOSCOPY [facility] EGD, W/ENDOSCOPIC US 06/09/2015 fatty liver, duodenal lipoma/ESOPHAGOGASTRODUODENOSCOPY (EGD), FLEXIBLE, TRANSORAL, ENDOSCOPIC ULTRASOUND performed by Delfina Butcher DO at ENDOSCOPY [facility] EGD, W/ENDOSCOPIC US 07/08/2024 one enlarged lymph node subcarinal mediastinum/fatty liver/gastritis/biopsies show inflammatory changes, Evans's/recall 3 years/ESOPHAGOGASTRODUODENOSCOPY (EGD), FLEXIBLE, TRANSORAL, ENDOSCOPIC ULTRASOUND performed by Delfina Butcher DO at ENDOSCOPY [facility] INFORMATION Left L TKA. INJECT DX/THER SUBSTANCE INTERLAMINAR LUMBAR/SACRAL W IMAGE GUIDE 05/13/2024 INJECTION SPINE LUMBAR OR SACRAL performed by Hugo Luna MD at OR [facility] INSER TUNN ACC DEV;5 YRS/OLDER Right 01/08/2024 INSERT TUNNELED CENTRAL VENOUS ACCESS WITH SUBQ PORT performed by Austin Ervin MD at OR [facility] KNEE ARTHROSCOPY/SURGERY LAPARO REMOVE K/URETER Right 11/27/2023 LAPAROSCOPIC NEPHRECTOMY TOTAL URETERECTOMY performed by Roberto Edwards MD at OR [facility] REMOVE CATARACT, INSERT LENS PROSTH Left 12/07/2021 Left EXTRACAPSULAR CATARACT REMOVAL WITH INTRAOCULAR LENS performed by Eulogio Barrios MD at OR [facility] REMOVE CATARACT, INSERT LENS PROSTH Right 12/19/2021 Right EXTRACAPSULAR CATARACT REMOVAL WITH INTRAOCULAR LENS performed by Eulogio Barrios MD at OR [facility] SINUS SURGERY PROCEDURE NEC 1996 Social History Socioeconomic History Marital status: Spouse name: noemy Number of children: 3 Years of education: Not on file Highest education level: Not on file Occupational History 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 Probable mold in basement. Social Needs Financial Resource Strain: Low Risk (07/09/2024) Financial Resource Strain Do you have any trouble paying for your medications, or do you think you might in the future? (Adult - for ages 18 years and over): No Does your family have trouble paying for medicine? (Household - for ages 0-17 years): Not on file Food Insecurity: No Food Insecurity (07/09/2024) Food Insecurity Worried About Running Out of Food in the Last Year: Never true Ran Out of Food in the Last Year: Never true Do you need food for this week? (Adult - for ages 18 years and over): No Transportation Needs: No Transportation Needs (07/09/2024) Transportation Needs Do you have trouble getting a ride to medical visits or work? (Adult - for ages 18 years and over):Never True Does your family have a hard time getting a ride to doctors’ visits? (Household - for ages 0-17 years): Not on file Has lack of transportation kept you from medical appointments, meetings, work, or from getting things needed for daily living? Check all that apply. (Adult - for ages 18 years and over): No Do you (or your family) have trouble finding or paying for a ride (transportation)? (Household - for ages 0-17 years): Not on file Social Connections: Socially Integrated (07/09/2024) Social Connections How often do you feel lonely or isolated from those around you? (Adult - for ages 18 years and over): Rarely Housing Stability: Low Risk (07/09/2024) Housing Stability Do you currently live in a penitentiary or have no steady place to sleep at night? (Adult - for ages 18 years and over): No Do you think you are at risk of becoming homeless? (Adult - for ages 18 years and over): No Does your family worry about paying for your home or becoming homeless? (Household - for ages 0-17 years): Not on file Are you homeless or worried that you might be in the future? (Adult - for ages 18 years and over): No Are you (or your family) homeless or worried that you might be in the future? (Household - for ages0-17 years): Not on file Review of patient's allergies indicates: Allergen Reactions Botox [Onabotulinumtoxina] Other (Please comment) Swallowing difficulty after injection Azelastine Unknown Current Outpatient Medications Medication Sig Dispense Refill VITAMIN B-12 100 MCG PO TABS Take 1 Tablet by mouth daily with dinner. albuterol (PROAIR HFA) 108 (90 BASE) MCG/ACT inhaler Inhale 2 Puffs by mouth every 4 hours as needed for Cough or Wheezing. With spacer 1 Inhaler 1 Sildenafil Citrate 100 MG Oral Tablet TAKE ONE TABLET BY MOUTH NEEDED FOR ED Meclizine HCl 25 MG Oral Tablet (Antivert) Take 1 Tablet by mouth 3 times a day as needed for Dizziness. 60 Tablet 1 Esomeprazole Magnesium 20 MG Oral Capsule Delayed Release (NexIUM) Take by mouth 1 Capsule daily before breakfast . 90 Capsule 3 Budesonide 32 MCG/ACT Nasal Suspension Administer 1 Beaumont into nostril in the morning. Rimegepant Sulfate 75 MG Oral Tablet Disintegrating 75 mg. Triamcinolone Acetonide 0.1 % External Ointment (Aristocort) Apply topically to affected area 2 times a day. To affected area. 454 g 3 Metoclopramide HCl 10 MG Oral Tablet (Reglan) Take 1 Tablet by mouth every 6 hours as needed for Nausea. 30 Tablet 0 Docusate Sodium 100 MG Oral Capsule (Colace) Take 1 Capsule by mouth in the morning and 1 Capsule before bedtime. (Patient taking differently: Take 1 Capsule by mouth in the morning and 1 Capsule before bedtime. As needed.) 30 Capsule 1 Ondansetron 4 MG Oral Tablet Disintegrating (Zofran) Place 1 Tablet on tongue every 6 hours as needed for Nausea. 30 Tablet 1 Metaxalone 800 MG Oral Tablet (Skelaxin) TAKE 1 TABLET BY MOUTH AT BEDTIME AND 1/2 TO 1 TABLET UP TO AN ADDITIONAL TWO TIMES DAILY NEEDED FOR NECK AND HEAD PAIN. 90 Tablet 11 Qulipta 10 MG Oral Tablet (Atogepant) Take by mouth. buPROPion HCl 100 MG Oral Tablet (Wellbutrin) Take 0.5 Tablets by mouth in the morning and 0.5 Tablets before bedtime. 30 Tablet 5 Mirtazapine 15 MG Oral Tablet (Remeron) Take 1 Tablet by mouth at bedtime. 30 Tablet 5 LORazepam 0.5 MG Oral Tablet (Ativan) Take 0.5 Tablets by mouth every night at bedtime. NO EARLY REFILLS Do not start before November 23, 2024. 15 Tablet 3 Finasteride 5 MG Oral Tablet (Proscar) Take 1 Tablet by mouth in the morning. 90 Tablet 3 Tamsulosin HCl 0.4 MG Oral Capsule (Flomax) TAKE ONE CAPSULE BY MOUTH IN THE MORNING 90 Capsule 3 Lidocaine-Prilocaine 2.5-2.5 % External Cream (Emla) Apply topically to affected area as needed forOther (none). APPLY TO SKIN OVER MEDIPORT & COVER 1HR PRIOR TO ACCESSING. 30 g 2 Nitrofurantoin Monohyd Macro 100 MG Oral Capsule (Macrobid) Take 1 Capsule by mouth in the morning and 1 Capsule before bedtime. With food.. 10 Capsule 0 Propranolol HCl 40 MG Oral Tablet (Inderal) Take 1 Tablet by mouth in the morning and 1 Tablet before bedtime. 180 Tablet 5 Current Facility-Administered Medications Medication Dose Route Frequency Provider Last Rate Last Admin Albuterol Sulfate (Proventil) (2.5 MG/3ML) 0.083% inhalation solution 2.5 mg 2.5 mg Nebulizer PRN 2.5 mg at 06/12/24 1302 Albuterol Sulfate (Proventil) (5 MG/ML) 0.5% *conc* inhalation solution 2.5 mg 2.5 mg Nebulizer PRN REVIEW OF SYSTEMS: See HPI - otherwise negative OBJECTIVE: Filed Vitals: 12/21/24 0924 BP: 155/76 Pulse: 65 Temp: 36.4 °C (97.5 °F) TempSrc: Tympanic SpO2: 94% Weight: 111.6 kg (246 lb) Wt Readings from Last 5 Encounters: 12/21/24 111.6 kg (246 lb) 12/08/24 109.8 kg (242 lb) 11/23/24 110.2 kg (243 lb) 11/23/24 110.8 kg (244 lb 4.8 oz) 11/09/24 112 kg (247 lb) PHYSICAL EXAM: ECOG: Performance Status 1 = 80-90% Symptoms but nearly ambulatory General Appearance: No acute distress HEENT: Normal - No oral or pharyngeal masses, ulceration or thrush noted Lymph Nodes: Normal - No palpable lymph nodes in the neck or supraclavicular areas Lungs/Thorax: Diminished to auscultation, mild expiratory wheeze throughout Heart: Normal - Regular rate and rhythm, normal S1, S2, no appreciable murmurs Pulses/Extremities: Normal - 2+ throughout and symmetrical, no edema Neurologic: alert and oriented x 4, ambulates with walker LABS: Results for orders placed or performed in visit on 12/21/24 COMPREHENSIVE METABOLIC PANEL Result Value Ref Range BUN 20 6 - 20 mg/dL CREATININE 1.6 (H) 0.6 - 1.2 mg/dL EGFR 41 (L) >=60 mL/min SODIUM 141 135 - 146 mmol/L POTASSIUM 4.2 3.5 - 5.1 mmol/L CHLORIDE 109 (H) 98 - 107 mmol/L CO2 21 (L) 22 - 32 mmol/L ANION GAP 11 7 - 15 mmol/L GLUCOSE 110 70 - 120 mg/dL Albumin 4.1 3.8 - 5.0 g/dL AST 31 10 - 50 U/L Alkaline Phosphatase 42 35 - 130 U/L Bilirubin, Total 0.5 <=1.2 mg/dL CALCIUM 9.1 8.4 - 10.2 mg/dL Protein 7.1 6.0 - 8.3 g/dL ALT 25 10 - 50 U/L TSH WITH FREE T4 IF INDICATED Result Value Ref Range TSH 5.35 (H) 0.27 - 4.20 uIU/mL CBC Result Value Ref Range WBC 9.15 4.00 - 10.80 K/uL RBC 4.28 4.50 - 5.25 M/uL HGB 13.7 (L) 14.0 - 16.8 g/dL HCT 41.2 40.0 - 48.4 % MCV 96.3 82.0 - 99.5 fL MCH 32.0 27.0 - 34.0 pg MCHC 33.3 32.0 - 36.0 g/dL RDW 12.9 11.5 - 15.5 % PLT 218 140 - 400 K/uL MPV 9.2 6.6 - 11.1 fL DIFFERENTIAL, AUTOMATED Result Value Ref Range WBC 9.15 4.00 - 10.80 K/uL Neutrophils % 73.3 40.0 - 75.0 % Lymphocytes % 13.6 (L) 18.0 - 42.0 % Monocytes % 9.9 1.0 - 11.0 % Eosinophils % 2.7 0.0 - 6.0 % Basophils % 0.5 0.0 - 2.0 % Absolute Neutrophils 6.70 1.80 - 7.70 K/uL Absolute Lymphocytes 1.24 1.00 - 4.80 K/ul Absolute Monocytes 0.91 0.00 - 1.10 K/uL Absolute Eosinophils 0.25 0.00 - 0.70 K/uL Absolute Basophils 0.05 0.00 - 0.20 K/uL CULTURE, URINE, QUANTITATIVE Specimen: Urine, Clean Catch Result Value Ref Range Culture Growth >100,000 colonies/mL Aerococcus sanguinicola (A) DIFFERENTIAL, TECHNOLOGIST REVIEW Result Value Ref Range NRBCs T4, FREE Result Value Ref Range T4, Free 1.1 0.9 - 1.7 ng/dL *Note: Due to a large number of results and/or encounters for the requested time period, some results have not been displayed. A complete set of results can be found in Results Review. IMPRESSION/PLAN: Urothelial carcinoma of kidney, right Patient s/p right-sided hand assisted laparoscopic radical nephroureterectomy and intravesical instillation of mitomycin-C 11/27/23 Now completing adjuvant Nivolumab every two weeks with plan for one year of therapy Lab results reviewed: Creatinine stable at 1.6 Calcium level WNL Hgb stable at 13.7 TSH stable at 5.35 Ok for C21D1 of treatment today as scheduled. Continue Triamcinolone and Benadryl PRN for pruritus Continue to avoid NSAIDs. Continue to follow with nephrology. Continue to follow with Urology. Currently completing cystoscopy every three months. RTC in 4 weeks with physician for chemo return ALEXANDRO Neri documented in this encounter Nursing Notes * Carlota Fish MED ASSIST - 12/21/2024 9:25 AM EDT Patient identifed by name and birthdate Do you have any concerns about pain management for today's visit? Yes. Patient instructed to discuss pain concerns with provider during the visit today Living Will or Advance Directive for Health Care as noted on the problem list. [facility] is a way you can talk to your provider on line through e-mail. Would you like to sign up? I can activate it for you? ALREADY ACTIVE Filed Vitals: 12/21/24 0924 BP: 155/76 Pulse: 65 Temp: 36.4 °C (97.5 °F) TempSrc: Tympanic SpO2: 94% Weight: 111.6 kg (246 lb) Patient was instructed to not get up on the exam table/exam chair until directed and assisted by their provider; patient is to remain seated in the chair/ wheelchair/ exam table/ exam chair for fall prevention and safety reasons. Patient is aware to have assistance to step down off exam table/exam chair with personnel. Patient voiced full comprehension of instructions. documented in this encounter Plan of Treatment Upcoming Encounters Date Type Department Care Team (Brisa st Contact Info) Description 01/04/2025 9:00 AM EDT Laboratory Laboratory [facility] [address] [place] [phone] [facility] [address] [address] [place] [address] 01/04/2025 10:00 AM EDT Hem/Onc Treatment Hematology/Oncology [facility] [address] [facility] [phone] Cheri, Chair 9 Hem Onc [facility] [address] [place] [address] 01/19/2025 1:30 PM EDT Laboratory Laboratory [facility] [place] [address] [place] [phone] Cheri, Lab Scenery [address] [place] [address] 01/19/2025 2:00 PM EDT Office Visit Hematology/Oncology [facility] [address] [place] [phone] Chandler Winter MD [address] [place], [place] [address] 01/19/2025 2:30 PM EDT [facility] [address] [facility] [place] [phone] 02/03/2025 1:30 PM EDT Telemedicine Psychiatry Iyv Squires [address] [place] [phone] Princess Kwon MD [address] [facility] [place] [address] 03/15/2025 3:00 PM EDT Procedure Only Urology, [facility] [address] [place] [address] Roberto Edwards MD 27 [place] [address] 04/23/2025 10:40 AM EDT Telemedicine Neurology [address] [place] [address] Nan Miller MD [address] [place], [place] [id number] 04/29/2025 8:00 AM EDT Office Visit Pulmonary Medicine, [facility] [address] [place] [phone] Luigi Bass MD [address] [place] [address] 05/25/2025 9:00 AM EDT Office Visit [facility] [address] [place] [address] Rema Carpenter CRNP [address] [place] [address] 06/08/2025 3:30 PM EDT Procedure Only Urology, [facility] [address] [place] [phone] Roberto Edwards MD 27 [place] [address] 06/17/2025 2:20 PM EDT Office Visit Nephrology, Donald Alonzo [address] [place] [address] Reece Cross MD [address] [place] [address] 11/23/2025 9:40 AM EDT Office Visit [facility] [address] [place] [address] Henrik Campbell DO [address] [place] [address] Scheduled Procedures Name Priority Associated Diagnoses Date/Ti [...] Additional history exists CKD PHOS USE SMARTSET 15259 08/03/2025 08/03/2024, 1 09/20/2023 HbA1c 11/23/2025 11/23/2024, 030 10/2024, 05/04/2024, Additional history exists CKD HGB USE SMARTSET 98538 12/21/202512/21, 12/21/2024, 12/07/2024, Additional history exists Colonoscopy [...] this encounter Medical Devices Implanted Type Area Personal Trainer Device Identifier Shelf Expiration Date Model / Serial / Lot Lens Intraoc 19.5 - [id number] - [id number] Implanted:Qty : 1 on 12/07/2021 by Eulogio Barrios MD at OR [facility] Left: Eye BAUSCH 07/25/2026 [id number] / [id number] / [id number] Lens Intraoc 19.5 - [id number] - [id number] Implanted:Qty : 1 on 12/19/2021 by Eulogio Barrios MD at OR [facility] Right: Eye BAUSCH 07/25/2026 [id number] / [id number] / [id number] Port Implant W8f Poly Cath - [id number] Implanted:Qty : 1 on 01/08/2024 by Austin Ervin MD at OR [facility] Right: Chest CR BARD : PERIPHERAL VASCULAR [id number] 01/23/2025 [id number] / / [id number] documented as of this encounter Visit Diagnoses Diagnosis Urothelial carcinoma of kidney, right (HCC)- Primary documented in this encounter Advance Directives Documents on File Type Date Recorded Patient Log Chain Worker Expl anation Advance Directives and Living Will 04/22/2001 Noemy Gutiérrez LIVING WILL * Full Code (Latest [...] Agents on File Name Relationship Healthcare Agent [facility] Communication Noemy Gutiérrez Spouse Health Care Agen t (per Health Care Power of Plastics Patternmaker document) Care Teams Materials Engineer Relationship Specialty Start Date End Date Henrik Campbell DO [address] [place] [address] PCP - General Family Medicine 06/02/18 documented as of this encounter
--- OUTSIDE RECORDS SUMMARY | 2025-01-05 06:43 | External Medical Summary | Summary of Care ---
Author Name Unknown Organization [facility] Address [address] [place] [address] Phone [phone] Care Team Providers Care Computing Machine Operator Name Role Phone Adrian Henrik Brandgabbi Primary Care Provider Reason for Visit * Reason Onset Date Comments Test Results 12/25/2024 Encounter Details Date Type Department Care Team (Late st Contact Info) Description 12/25/2024 Telephone Urology Woody Serrano [address] [place] [address] [place] [address] Roberto Edwards MD [address] [place] [address] Test Results Allergies Active Allergy Reactions Criticality [...] Budesonide 32 MCG/ACT Nasal Suspension Administer 1 [place] into nostril in the morning. Active Rimegepant [...] 12:07 PM EDT Lmtcb-left detailed message to filler picker abx, call with further questions * Telephone Encounter - Roberto Edwards MD - 12/25/2024 11:43 AM EDT Patient's urine culture is positive. Covered with Macrobid. Thanks, HM documented in this encounter Plan of Treatment Upcoming Encounters Date Type Department Care Team (Late st Contact Info) Description 01/04/2025 9:00 AM EDT Laboratory Laboratory [facility] [place] [address] [place] [phone] Cheri, Lab Scenery [address] [place] [address] 01/04/2025 10:00 AM EDT Hem[facility] [address] [facility] [place] [phone] Cheri, Chair 9 Hem Onc [facility] [address] [facility] [place] [address] 01/19/2025 1:30 PM EDT Laboratory Laboratory [facility] [place] [address] [place] [phone] Cheri, Lab Scenery [address] [place] [address] 01/19/2025 2:00 PM EDT Office Visit Hematology/Oncology [facility] [address] [place] [phone] Chandler Winter MD [address] [place] [address] 01/19/2025 2:30 PM EDT Hem[facility] [phone] 02/03/2025 1:30 PM EDT Telemedicine Psychiatry Ivy Squires 9 [place] [phone] Princess Kwon MD [address] [facility] [place] [address] 03/15/2025 3:00 PM EDT Procedure Only Urology, [facility] [address] [facility] [place] [address] Roberto Edwards MD 27 [place] [id number] 04/23/2025 10:40 AM EDT Telemedicine Neurology [address] [place], [place] [address] Nan Miller MD [address] [facility] [place], [place] [address] 04/29/2025 8:00 AM EDT Office Visit Pulmonary Medicine, [facility] [place] [phone] Luigi Bass MD [address] [facility] [place] [id number] 05/25/2025 9:00 AM EDT Office Visit [facility] [place] [place] [address] Rema Carpenter CRNP [address] [facility], [place] [address] 06/08/2025 3:30 PM EDT Procedure Only Urology, [facility] [place] [phone] Roberto Edwards MD 27 [place] [address] 06/17/2025 2:20 PM EDT Office Visit Nephrology, Donald Alonzo [address] [place] [address] Reece Cross MD [address] [place], [place] [address] 11/23/2025 9:40 AM EDT Office Visit Family [facility] [address] [place] [address] Henrik Campbell, [address] [place] [address] Scheduled Procedures Name Priority Associated Diagnoses Date/Ti [...] Additional history exists CKD PHOS USE SMARTSET 47308 08/03/2025 08/03/2024, 1 09/20/2023 HbA1c 11/23/2025 11/23/2024, 10/2024, 05/04/2024, Additional history exists CKD HGB USE SMARTSET 14959 12/21/202512/21, 12/21/2024, 12/07/2024, Additional history exists Colonoscopy [...] this encounter Medical Devices Implanted Type Area Artificial Cherry Maker Device Identifier Shelf Expiration Date Model / Serial / Lot Lens Intraoc 19.5 - [id number] - [id number] Implanted:Qty : 1 on 12/07/2021 by Eulogio Barrios MD at OR [facility] Left: Eye BAUSCH 07/25/2026 [id number] / [id number] / [id number] Lens Intraoc 19.5 - [id number] - [id number] Implanted:Qty : 1 on 12/19/2021 by Eulogio Barrios MD at OR [facility] Right: Eye BAUSCH 07/25/2026 [id number] / [id number] / [id number] Port Implant W8f Poly Cath - [id number] Implanted:Qty : 1 on 01/08/2024 by Austin Ervin MD at OR [facility] Right: Chest CR BARD : PERIPHERAL VASCULAR [id number] 01/23/2025 [id number] / / [id number] documented as of this encounter Visit Diagnoses Diagnosis History of UTI- Primary Personal history of urinary (tract) infection documented in this encounter Advance Directives Documents on File Type Date Recorded Patient Pillow Filler Expl anation Advance Directives and Living Will [...] Agents on File Name Relationship Healthcare Agent [facility] Communication Roma Gutiérrez Spouse Health Care Agen t (per Health Care Power of Brass Bobbin Winder document) Care Teams Computing Machine Operator Relationship Specialty Start Date End Date Henrik Campbell DO [facility] [place] [address] PCP - General Family Medicine 06/02/18 documented as of this encounter
--- OUTSIDE RECORDS SUMMARY | 2025-01-05 06:44 | External Medical Summary | Summary of Care ---
Author Name Unknown Organization [facility] Address [address] [place] [address] Phone [phone] Care Team Providers Care Audit Practice Intern Name Role Phone Adrian Henrik Brandgabbi Primary Care Provider Reason for Visit * Reason Onset Date Comments Test Results 12/21/2024 6MW Encounter Details Date Type Department Care Team (Late st Contact Info) Description 12/21/2024 Telephone Pulmonary Medicine, [facility] [address] [place] [phone] Luigi Bass MD [address] [facility] [address] Test Results (6MW) Allergies Active Allergy Reactions Criticality Noted Date Comments Azelastine Unknown 02/01/2021 Onabotulinumtoxina Other (Please comment) High 01/20/2021 Swallowing difficulty after injection documented as of this encounter (statuses as of 12/21/2024) Medications VITAMIN B-12 100 MCG PO TABS [...] Budesonide 32 MCG/ACT Nasal Suspension Administer 1 [place] into nostril in the morning. Active Rimegepant [...] ACCESSING. 30 g 2 11/18/19 25 Active Nitrofurantoin Monohyd Macro 100 MG Oral Capsule (Macrobid) Take 1 Capsule by mouth in the morning and 1 Capsule before bedtime. With food.. 10 Capsule 11/21/19 25 Active Propranolol HCl 40 MG Oral Tablet (Inderal)Indicatio ns:HTN, goal below 140/90,FAHAD (generalized anxiety disorder) Take 1 Tablet by mouth in the morning and 1 Tablet before bedtime. 180 Tablet 5 11/24/19 25 Active Hospital, Clinic, or Other Facility [...] as of this encounter (statuses as of 12/21/2024) Active Problems Problem Noted Date Diagnosed Date [...] as of this encounter (statuses as of 12/21/2024) Resolved Problems Problem Noted Date Diagnosed Date [...] as of this encounter (statuses as of 12/21/2024) Immunizations Name Administration Dates Next Due COVID-19 [...] No 07/09/2024 Does the household have a [facility] source of income? (Household - for ages [...] 07/09/2024 Transportation Needs Answer Date Record ed READ ONLY Do you have troubl e getting a ride to medical visits or work? Never True 07/09/2024 Does your family have a hard [...] place to sleep at night? No 07/09/2024 READ ONLY Do you think you a re at risk of becoming homeless? No 07/09/2024 Does your family worry about paying [...] encounter Miscellaneous Notes * Telephone Encounter - Caterina Cha LPN - 12/21/2024 8:07 AM EDT ----- Message from uLigi Bass MD sent at 12/19/2024 8:45 PM EDT ----- 6 minute walk test 2024 was NEGATIVE for exertional hypoxia. Chart note documented in this encounter Plan of Treatment Upcoming Encounters Date Type Department Care Team (Latest Contact Info) Description 12/21/2024 9:30 AM EDT Office Visit Hematology/Oncology [facility]onzo [place] [address] [place] [phone] Renea Easley CRNP [address] [place], [place] [address] [address] PENDING VISIT DRAFT 12/21/2024 10:00 AM EDT Hem/Onc Treatment Hematology/Oncology Treatment, [place] [address] [place] [phone] Park, Chair 4 Hem Onc Scenery [address] [place] [address] Arrived 02/03/2025 1:30 PM EDT Telemedicine Psychiatry Diogo Squires [address] [place] [address] Princess Kwon MD [address] [place] [address] 03/15/2025 3:00 PM EDT Procedure Only Urology, [facility] [address] [place] [phone] Roberto Edwards MD [address] [place], [place] [address] 04/23/2025 10:40 AM EDT Telemedicine Neurology [address] [place] [address] Nan Miller MD [address] [place], [place] [phone] 04/29/2025 8:00 AM EDT Office Visit Pulmonary Medicine, [facility] [address] [place] [phone] Luigi Bass MD [address] [facility] [place] [id number] 05/25/2025 9:00 AM EDT Office Visit Family Practice [facility] [address] [place] [address] Rema Carpenter CRNP [address] [place] [address] 06/08/2025 3:30 PM EDT Procedure Only Urology, [facility] [address] [place] [phone] Roberto Edwards MD [address] [place] [address] 06/17/2025 2:20 PM EDT Office Visit Nephrology, [facility] [address] [facility] [place] [address] Reece Cross MD [address] [facility] [place] [address] 11/23/2025 9:40 AM EDT Office Visit Family Practice [facility] [address] [place] [address] Henrik Campbell DO [address] [place] [address] Scheduled Procedures Name Priority Associated Diagnoses Date/Ti me ESOPHAGOGASTRODUODENOSCOPY ( EGD), FLEXIBLE, TRANSORAL, DIAGNOSTIC Recall Evans's esophagus with esophagitis Health Maintenance Due Date Last Done Comments Adult Wellness Visit 12/16/2019 12/15/2018 Depression Monitoring 12/22/2024 12/23/2023 Albumin/Creatinine Ratio 05/04/20252 024, 11/06/2023, 03/22/2023, Additional history exists COVID-19 Vaccine ( season) 2025 11/03/2024, 07/17/2021, 11/22/2020, Additional history exists GFR 06/08/2025 12/07/2024, 10/26, 11/09/2024, Additional history exists CKD PHOS USE SMARTSET 42238 08/03/2025 08/03/2024, 1 09/20/2023 HbA1c 11/23/2025 11/23/2024, 10/2024, 05/04/2024, Additional history exists CKD HGB USE SMARTSET 40547 12/07/202512/07, 12/07/2024, 11/23/2024, Additional history exists Colonoscopy 01/21/2027 01/22/2024, 12/25, [...] this encounter Medical Devices Implanted Type Area Chemical Dependency Professional Device Identifier Shelf Expiration Date Model / Serial / Lot Lens Intraoc 19.5 - [id number] - [id number] Implanted:Qty : 1 on 12/07/2021 by Eulogio Barrios MD at OR [facility] Left: Eye BAUSCH 07/25/2026 [id number] / [id number] / [id number] Lens Intraoc 19.5 - [id number] - [id number] Implanted:Qty : 1 on 12/19/2021 by Eulogio Barrios MD at OR [facility] Right: Eye BAUSCH 07/25/2026 [id number] / [id number] / [id number] Port Implant W8f Poly Cath - [id number] Implanted:Qty : 1 on 01/08/2024 by Austin Ervin MD at OR [facility] Right: Chest CR BARD : PERIPHERAL VASCULAR [id number] 01/23/2025 [id number] / / [id number] documented as of this encounter Advance Directives Documents on File Type Date Recorded Patient Priming Powder Premix Blender Expl anation Advance Directives and Living Will [...] Agents on File Name Relationship [facility] Roma Brock Spouse Health Care Agen t (per Health Care Power of Wind Turbine Mechanical Engineer document) Care Teams Audit Practice Intern Relationship Specialty Start Date End Date Henrik Campbell DO [address] [place] [address] PCP - General Family Medicine 06/02/18 documented as of this encounter
--- OUTSIDE RECORDS SUMMARY | 2025-01-05 06:44 | External Medical Summary | Summary of Care ---
Author Name Unknown Organization [facility] Address [address] [place] [address] Phone [phone] Care Team Providers Care Sort Operations Supervisor Name Role Phone Henrik Campbell DO Primary Care Provider Reason for Visit * Reason Comments Outpatient Testing Encounter Details Date Type Department Care Team (Late st Contact Info) Description 12/21/2024 9:00 AM EDT Laboratory Laboratory [facility] [place] [address] [place] [address] [place], [address] Scenery [address] [place] [address] Urothelial carcinoma of kidney, right (HCC); Encounter for long-term (current) use of medications; Dysuria Allergies Active Allergy Reactions Criticality Noted Date [...] Budesonide 32 MCG/ACT Nasal Suspension Administer 1 Mongo into nostril in the morning. Active Rimegepant [...] in the morning. 90 Tablet 3 11/18/19 Active Tamsulosin HCl 0.4 MG Oral Capsule (Flomax)Indication s:BPH with obstruction/lower urinary tract symptoms TAKE ONE CAPSULE BY MOUTH IN THE MORNING 90 Capsule 3 11/18/19 Active Lidocaine-Prilocai ne 2.5-2.5 % External Cream (Emla)Indications: Urothelial carcinoma of kidney, right (HCC) Apply topically to affected area as needed for Other (none). APPLY TO SKIN OVER MEDIPORT & COVER 1HR PRIOR TO ACCESSING. 30 g 2 11/18/19 Active Nitrofurantoin Monohyd Macro 100 MG Oral Capsule (Macrobid) Take 1 Capsule by mouth in the morning and 1 Capsule before bedtime. With food.. 10 Capsule 11/21/19 Active Propranolol HCl 40 MG Oral Tablet (Inderal)Indicatio ns:HTN, goal below 140/90,FAHAD (generalized anxiety disorder) Take 1 Tablet by mouth in the morning and 1 Tablet before bedtime. 180 Tablet 5 11/24/19 Active Hospital, Clinic, or Other Facility Administered [...] No 07/09/2024 Does the household have a mclaren thumb regionr source of income? (Household - for ages [...] Care Team (Late st Contact Info) Description 02/03/2025 1:30 PM EDT Telemedicine Psychiatry Ivy Squires [address] [place] [phone] Princess Kwon MD [address] [facility] [place] [address] 03/15/2025 3:00 PM EDT Procedure Only Urology, [facility] [address] [place] [address] Roberto Edwards MD [address] [place] [address] 04/23/2025 10:40 AM EDT Telemedicine Neurology [address] [place] [address] Nan Miller MD [address] [facility] [place], [place] [phone] 04/29/2025 8:00 AM EDT Office Visit Pulmonary Medicine, [facility] [place], [place] [phone] Luigi Bass MD [address] [place] [address] 05/25/2025 9:00 AM EDT Office Visit [place] 132 [facility] [place] [address] Rema Carpenter CRNP [facility] [place] [address] 06/08/2025 3:30 PM EDT Procedure Only Urology, [facility] [place] [phone] Roberto Edwards MD [address] [place] [address] 06/17/2025 2:20 PM EDT Office Visit Nephrology, [facility] [address] [place] [address] Reece Cross MD [address] [place] [address] 11/23/2025 9:40 AM EDT Office Visit [place] [facility] [place] [address] Henrik Campbell DO [address] [place] [address] Pending Results Name Type Priority Associated Diagnoses Date /Time TSH WITH FREE T4 IF INDICATED Lab STAT Urothelial carcinoma of kidney, right (HCC) Encounter for long-term (current) use of medications 12/21/2024 8:57 AM EDT CULTURE, URINE, QUANTITATIVE Lab Routine Urothelial carcinoma of kidney, right (HCC) Dysuria 12/21/2024 8:57 AM EDT Scheduled Procedures Name Priority [...] Additional history exists CKD PHOS USE SMARTSET 58746 08/03/2025 08/03/2024, 1 09/20/2023 HbA1c 11/23/2025 11/23/2024, 03/10/2024, 05/04/2024, Additional history exists CKD HGB USE SMARTSET 92387 12/21/202512/21, 12/21/2024, 12/07/2024, Additional history exists Colonoscopy 01/21/2027 01/22/2024, 2 04/2024, 08/03/2021, Additional history exists Evans's Esophagus Surveilance [...] this encounter Medical Devices Implanted Type Area Project Coordinator Device Identifier Shelf Expiration Date Model / Serial / Lot Lens Intraoc 19.5 - [id number] - [id number] Implanted:Qty : 1 on 12/07/2021 by Eulogio Barrios MD at OR [facility] Left: Eye BAUSCH 07/25/2026 [id number] / [id number] / [id number] Lens Intraoc 19.5 - [id number] - [id number] Implanted:Qty : 1 on 12/19/2021 by Eulogio Barrios MD at OR [facility] Right: Eye BAUSCH 07/25/2026 [id number] / [id number] / [id number] Port Implant W8f Poly Cath - [id number] Implanted:Qty : 1 on 01/08/2024 by Austin Ervin MD at OR [facility] Right: Chest CR BARD : PERIPHERAL VASCULAR [id number] 01/23/2025 [id number] / / [id number] documented as of this encounter Procedures Procedure Name Priority Date/Time Associated Diagnosis Comments DIFFERENTIAL, AUTOMATED STAT 12/21/2024 8:57 AM EDT Urothelial carcinoma of kidney, right (HCC) COMPREHENSIVE METABOLIC PANEL STAT 12/21/2024 8:57 AM EDT Urothelial carcinoma of kidney, right (HCC) CBC STAT 12/21/2024 8:57 AM EDT Urothelial carcinoma of kidney, right (HCC) CBC STAT 12/21/2024 8:57 AM EDT Urothelial carcinoma of kidney, right (HCC) DIFFERENTIAL, TECHNOLOGIST REVIEW Routine 12/21/2024 8:57 AM EDT Urothelial carcinoma of kidney, right (HCC) documented in this encounter Results * DIFFERENTIAL, TECHNOLOGIST REVIEW (12/21/2024 8:57 AM EDT) Pathologist [facility] NRBCs 12/21/2024 9:24 AM EDT [facility] 56-02 Blood Venous blood specimen / Unknown Venipuncture / Unknown 12/21/2024 8:57 AM EDT 12/21/2024 8:57 AM EDT Chandler Winter MD LAB BLOOD ORDERABLES Fin al Result [facility] [address]- [address] [place] [address] * (ABNORMAL) DIFFERENTIAL, AUTOMATED (12/21/2024 8:57 AM EDT) Pathologist [facility] WBC 9.15 4.00 - 10.80 K/uL 12/21/2024 9:24 AM EDT [facility] 56-02 Neutrophils % 73.3 40.0 - 75.0 % 12/21/2024 9:24 AM EDT [facility] 56-02 Lymphocytes % 13.6(L) 18.0 - 42.0 % 12/21/2024 9:24 AM EDT [facility] 56-02 Monocytes % 9.9 1.0 - 11.0 % 12/21/2024 9:24 AM EDT [facility] 56-02 Eosinophils % 2.7 0.0 - 6.0 % 12/21/2024 9:24 AM EDT [facility] 56-02 Basophils % 0.5 0.0 - 2.0 % 12/21/2024 9:24 AM EDT [facility] 56-02 Absolute Neutrophils 6.70 1.80 - 7.70 K/uL 12/21/2024 9:24 AM EDT [facility] 56-02 Absolute Lymphocytes 1.24 1.00 - 4.80 K/ul 12/21/2024 9:24 AM EDT [facility] 56-02 Absolute Monocytes 0.91 0.00 - 1.10 K/uL 12/21/2024 9:24 AM EDT [facility] Absolute Eosinophils 0.25 0.00 - 0.70 K/uL 12/21/2024 9:24 AM EDT [facility] Absolute Basophils 0.05 0.00 - 0.20 K/uL 12/21/2024 9:24 AM EDT [facility] Blood Venous blood specimen / Unknown Venipuncture / Unknown 12/21/2024 8:57 AM EDT 12/21/2024 8:57 AM EDT us Chandler Winter MD LAB BLOOD ORDERABLES Fin al Result [facility] [address] [place] [address] * (ABNORMAL) CBC (12/21/2024 8:57 AM EDT) WBC 9.15 4.00 - 10.80 K/uL 12/21/2024 9:24 AM EDT [facility] RBC 4.28 4.50 - 5.25 M/uL 12/21/2024 9:24 AM EDT [facility] HGB 13.7(L) 14.0 - 16.8 g/dL 12/21/2024 9:24 AM EDT [facility] HCT 41.2 40.0 - 48.4 % 12/21/2024 9:24 AM EDT [facility] MCV 96.3 82.0 - 99.5 fL 12/21/2024 9:24 AM EDT [facility] MCH 32.0 27.0 - 34.0 pg 12/21/2024 9:24 AM EDT [facility] MCHC 33.3 32.0 - 36.0 g/dL 12/21/2024 9:24 AM EDT [facility] RDW 12.9 11.5 - 15.5 % 12/21/2024 9:24 AM EDT [facility] PLT 218 140 - 400 K/uL 12/21/2024 9:24 AM EDT [facility] MPV 9.2 6.6 - 11.1 fL 12/21/2024 9:24 AM EDT [facility] Blood Venous blood specimen / Unknown Venipuncture / Unknown 12/21/2024 8:57 AM EDT 12/21/2024 8:57 AM EDT Chandler Winter MD LAB BLOOD ORDERABLES Fin al Result [facility] [address] [place] [address] * (ABNORMAL) COMPREHENSIVE METABOLIC PANEL (12/21/2024 8:57 AM EDT) BUN 20 6 - 20 mg/dL 12/21/2024 9:24 AM EDT [facility] CREATININE 1.6(H) 0.6 - 1.2 mg/dL 12/21/2024 9:24 AM EDT [facility] EGFR 41(L) >=60 mL/min 12/21/2024 9:24 AM EDT [facility] Comment:eGFR is calculated b ased on the CKD-EPI 2020 equation. SODIUM 141 135 - 146 mmol/L 12/21/2024 9:24 AM T [facility] POTASSIUM 4.2 3.5 - 5.1 mmol/L 12/21/2024 9:24 AM EDT [facility] CHLORIDE 109(H) 98 - 107 mmol/L 12/21/2024 9:24 AM EDT [facility] CO2 21(L) 22 - 32 mmol/L 12/21/2024 9:24 AM EDT [facility] 56 ANION GAP 11 7 - 15 mmol/L 12/21/2024 9:24 AM EDT [facility] GLUCOSE 110 70 - 120 mg/dL 12/21/2024 9:24 AM EDT [facility] Albumin 4.1 3.8 - 5.0 g/dL 12/21/2024 9:24 AM EDT [facility] 56 AST 31 10 - 50 U/L 12/21/2024 9:24 AM EDT [facility] 56- Alkaline Phosphatase 42 35 - 130 U/L 12/21/2024 9:24 AM EDT [facility] 56- Bilirubin, Total 0.5 <=1.2 mg/dL 12/21/2024 9:24 AM EDT [facility] 56- CALCIUM 9.1 8.4 - 10.2 mg/dL 12/21/2024 9:24 AM EDT [facility] 56- Protein 7.1 6.0 - 8.3 g/dL 12/21/2024 9:24 AM EDT [facility] 56- ALT 25 10 - 50 U/L 12/21/2024 9:24 AM EDT [facility] 56- Blood Venous blood specimen / Unknown Venipuncture / Unknown 12/21/2024 8:57 AM EDT 12/21/2024 8:57 AM EDT Chandler Winter MD LAB BLOOD ORDERABLES Fin al Result [facility] [address]- [address] [place] [address] documented in this encounter Visit Diagnoses Diagnosis Urothelial carcinoma of kidney, right (HCC) Encounter for long-term (current) use of medications Encounter for long-term (current) use of other medications Dysuria documented in this encounter Advance Directives Documents on File Type Date Recorded Patient Orthotic And Prosthetic Technician Expl anation Advance Directives and Living [...] Agents on File Name Relationship Healthcare Agent [facility] p Communication Roma Gutiérrez Spouse Health Care Agen t (per Health Care Power of Sales Management Intern document) Care Teams Sort Operations Supervisor Relationship Specialty Start Date End Date Henrik Campbell DO [address] [place] [address] PCP - General Family Medicine 06/02/18 documented as of this encounter
--- OUTSIDE RECORDS SUMMARY | 2025-01-05 06:44 | External Medical Summary ---
Author Name Unknown Address Unknown Organization K09:[facility] [place] [address] Laboratory Report Ordering Provider Test Date Status JEAN PIERRE SON 12/21/2024 08:57:20 Final Observation Date Value Abnormality Reference (Units ) Status WBC, Total 12/21/2024 08:57:20 9.15 4.00-10.8 0 (K/uL) Final RBC 12/21/2024 08:57:20 4.28 4.50-5.25 (M/uL) Final Hemoglobin 12/21/2024 08:57:20 13.7 Below low normal 14 .0-16.8 (g/dL) Final HCT 12/21/2024 08:57:20 41.2 40.0-48.4 (%) Final MCV 12/21/2024 08:57:20 96.3 82.0-99.5 (fL) Final MCH 12/21/2024 08:57:20 32.0 27.0-34.0 (pg) Final MCHC 12/21/2024 08:57:20 33.3 32.0-36.0 (g/dL) Final RDW 12/21/2024 08:57:20 12.9 11.5-15.5 (%) Final Platelets 12/21/2024 08:57:20 218 140-400 (K /uL) Final MPV 12/21/2024 08:57:20 9.2 6.6-11.1 ( fL) Final Performing Location [facility] [place] [address]
--- OUTSIDE RECORDS SUMMARY | 2025-01-05 06:44 | External Medical Summary | Summary of Care ---
Author Name Unknown Organization [facility] Address [address] [place] [facility] [place] [address] Phone [phone] Care Team Providers Care Regional Clinical Research Associate Name Role Phone Campbell Henrik Brandgabbi Primary Care Provider Encounter Details Date Type Department Care Team (Late st Contact Info) Description 12/25/2024 Telephone Urology Woody Serrano [address] [place] [address] [place] [address] Roberto Edwards MD [address] [place] [address] Allergies Active Allergy Reactions Criticality Noted Date Comments Azelastine Unknown 02/01/2021 Onabotulinumtoxina Other (Please comment) High 01/20/2021 Swallowing difficulty after injection documented as of this encounter (statuses as of 12/25/2024) Medications VITAMIN B-12 100 MCG PO TABS [...] Budesonide 32 MCG/ACT Nasal Suspension Administer 1 Pillow into nostril in the morning. Active Rimegepant [...] as of this encounter (statuses as of 12/25/2024) Active Problems Problem Noted Date Diagnosed Date [...] as of this encounter (statuses as of 12/25/2024) Resolved Problems Problem Noted Date Diagnosed Date [...] as of this encounter (statuses as of 12/25/2024) Immunizations Name Administration Dates Next Due COVID-19 mRNA, LNP-s, No Pre serve, 2-Dose Series (Populis) 07/17/2021,11/22/2020,10/26/2020 Pneumococcal Conjugate Vacc, 13 Valent (Prevnar) [...] encounter Miscellaneous Notes * Telephone Encounter - Radha Sanchez LPN - 12/25/2024 12:07 PM EDT Lmtcb-left detailed message to pick up man abx, call with further questions * Telephone Encounter - Roberto Edwards MD - 12/25/2024 11:43 AM EDT Patient's urine culture is positive. Covered with Macrobid. Thanks, HM documented in this encounter Plan of Treatment Upcoming Encounters Date Type Department Care Team (Late st Contact Info) Description 01/04/2025 9:00 AM EDT Laboratory Laboratory [facility] [place] [address] [place] [phone] Cheri, Lab Scenery [address] [place] [address] 01/04/2025 10:00 AM EDT [facility] [address] [facility] [place] [phone] Cheri, Chair 9 Hem Onc [facility] [address] [facility] [place] [address] 01/19/2025 1:30 PM EDT Laboratory Laboratory [facility] [place] [address] [place] [phone] [place], Lab Scenery [address] [place] [address] 01/19/2025 2:00 PM EDT Office Visit Hematology/Oncology [facility] [address] [place] [phone] Chandler Winter MD [address] [place] [address] 01/19/2025 2:30 PM EDT Hem[facility]c [facility] [phone] 02/03/2025 1:30 PM EDT Telemedicine Psychiatry Ivy Squires [address] [place] [phone] Princess Kwon MD [address] [facility] [place] [address] 03/15/2025 3:00 PM EDT Procedure Only Urology, [facility] [address] [facility] [place] [address] Roberto Edwards MD [address] [place] [phone] 04/23/2025 10:40 AM EDT Telemedicine Neurology [address] [place], [place] [address] Nan Miller MD [address] [facility] [place], [place] [address] 04/29/2025 8:00 AM EDT Office Visit Pulmonary Medicine, [facility] [place] [phone] Luigi Bass MD [address] [facility] [place] [phone] 05/25/2025 9:00 AM EDT Office Visit Family [facility] [address] [place], [place] [address] Rema Carpenter CRNP [facility] [place] [address] 06/08/2025 3:30 PM EDT Procedure Only Urology, [facility] [place] [phone] Roberto Edwards MD [address] [place] [address] 06/17/2025 2:20 PM EDT Office Visit Nephrology, [facility] [address] [place] [address] Reece Cross MD [address] [place], [place] [address] 11/23/2025 9:40 AM EDT Office Visit Family [facility] [address] [place] [address] Henrik Campbell, [address] [place] [address] Scheduled Procedures Name Priority Associated Diagnoses Date/Ti [...] Additional history exists CKD PHOS USE SMARTSET 51549 08/03/2025 08/03/2024, 1 09/20/2023 HbA1c 11/23/2025 11/23/2024, 10/2024, 05/04/2024, Additional history exists CKD HGB USE SMARTSET 93493 12/21/202512/21, 12/21/2024, 12/07/2024, Additional history exists Colonoscopy [...] this encounter Medical Devices Implanted Type Area Embossing Calender Operator Device Identifier Shelf Expiration Date Model / Serial / Lot Lens Intraoc 19.5 - [id number] - [id number] Implanted:Qty : 1 on 12/07/2021 by Eulogio Barrios MD at OR [facility] Left: Eye BAUSCH 07/25/2026 [id number] / [id number] / [id number] Lens Intraoc 19.5 - [id number] - [id number] Implanted:Qty : 1 on 12/19/2021 by Eulogio Barrios MD at OR [facility] Right: Eye BAUSCH 07/25/2026 [id number] / [id number] / [id number] Port Implant W8f Poly Cath - [id number] Implanted:Qty : 1 on 01/08/2024 by Austin Ervin MD at OR [facility] Right: Chest CR BARD : PERIPHERAL VASCULAR [id number] 01/23/2025 [id number] / / [id number] documented as of this encounter Visit Diagnoses Diagnosis History of UTI- Primary Personal history of urinary (tract) infection documented in this encounter Advance Directives Documents on File Type Date Recorded Patient Supervisor [employer] Expl anation Advance Directives and Living Will 04/22/2001 Rmoa Gutiérrez LIVING WILL * Full Code (Latest [...] Agents on File Name Relationship Healthcare Agent [facility] Communication Roma Gutiérrez Spouse Health Care Agen t (per Health Care Power of Detail Supervisor document) Care Teams Regional Clinical Research Associate Relationship Specialty Start Date End Date Henrik Campbell DO [facility] [place] [address] PCP - General Family Medicine 06/02/18 documented as of this encounter
--- OUTSIDE RECORDS SUMMARY | 2025-01-05 06:44 | External Medical Summary | Summary of Care ---
Author Name Unknown Organization [facility] Address [address] [place] [address] Phone [phone] Care Team Providers Care Gear Tooth Grinding Machine Operator Name Role Phone Henrik Campbell DO Primary Care Provider Reason for Visit * Reason Comments Outpatient Testing Encounter Details Date Type Department Care Team (Late st Contact Info) Description 12/21/2024 9:00 AM EDT Laboratory Laboratory [facility] Cheri [place] [address] [place] [address] [place], Lab Scenery [address] [place] [address] Urothelial carcinoma of kidney, right (HCC); Encounter [...] Budesonide 32 MCG/ACT Nasal Suspension Administer 1 [place] into nostril in the morning. Active Rimegepant [...] No 07/09/2024 Does the household have a [facility] source of income? (Household - for ages [...] 11/27/2023 2:35 PM EDKenzie Garzon RN * Do you have serious difficulty walking or climbing stairs? (5 years old or older) Answer Date of Assessment Author No 11/27/2023 2:35 PM EDKenzie Garzon RN * Do you have difficulty dressing [...] Kenzie Harper RN documented in this encounter Plan of Treatment Upcoming Encounters Date Type Department Care Team (Late st Contact Info) Description 01/04/2025 9:00 AM EDT Laboratory Laboratory Donald Alonzo [place] [address] [place] [address] [phone] [address]zo [address] [facility] [place] [address] 01/04/2025 10:00 AM EDT Hem/Onc Treatment Hematology/Oncology Treatment, [place] [address] [place] [phone] Cheri, Chair [address] [place] [address] 01/19/2025 1:30 PM EDT Laboratory Laboratory Donald Alonzo [place] [address] [place] [address] [place] [phone] Hamida Alonzo Scen[address] [place] [address] 01/19/2025 2:00 PM EDT Office Visit Hematology/Oncology [facility] [address] [place] [address] Chandler Winter MD [address] [place], [place] [address] 01/19/2025 2:30 PM EDT Hem/Onc Treatment Hematology/Oncology Treatment, [place] [address] [place] [phone] 02/03/2025 1:30 PM EDT Telemedicine Psychiatry [place] [address] [place] [address] Princess Kwon MD [address] [place] [address] 03/15/2025 3:00 PM EDT Procedure Only Urology, [facility] [address] [place] [address] Roberto Edwards MD [address] [place] [address] 04/23/2025 10:40 AM EDT Telemedicine Neurology [address] [place] [address] Nan Miller MD [address], [place] [phone] 04/29/2025 8:00 AM EDT Office Visit Pulmonary Medicine, [facility] [address] [place] [address] Luigi Bass MD [address] [facility] Banks [phone] 05/25/2025 9:00 AM EDT Office Visit [facility] [address] [place] [address] Rema Carpenter CRNP [address] [place] [address] 06/08/2025 3:30 PM EDT Procedure Only Urology, [facility] [address] [place] [phone] Roberto Edwards MD [address] [place] [address] 06/17/2025 2:20 PM EDT Office Visit Nephrology, [facility] 200 [facility] [place] [address] Reece Cross MD 200 [facility] [place] [address] 11/23/2025 9:40 AM EDT Office Visit [facility] [address] [place] [address] Henrik Campbell DO [address] [place] [address] Pending Results Name Type Priority Associated Diagnoses [...] Additional history exists CKD PHOS USE SMARTSET 26930 08/03/2025 08/03/2024, 1 09/20/2023 HbA1c 11/23/2025 11/23/2024, 03/0 10/2024, 05/04/2024, Additional history exists CKD HGB USE SMARTSET 13584 12/21/202512/21, 12/21/2024, 12/07/2024, Additional history exists Colonoscopy [...] this encounter Medical Devices Implanted Type Area Mat Linker Device Identifier Shelf Expiration Date Model / Serial / Lot Lens Intraoc 19.5 - [id number] - [id number] Implanted:Qty : 1 on 12/07/2021 by Eulogio Barrios MD at OR [facility] Left: Eye BAUSCH 07/25/2026 [id number] / [id number] / [id number] Lens Intraoc 19.5 - [id number] - [id number] Implanted:Qty : 1 on 12/19/2021 by Eulogio Barrios MD at OR [facility] Right: Eye BAUSCH 07/25/2026 [id number] / [id number] / [id number] Port Implant W8f Poly Cath - [id number] Implanted:Qty : 1 on 01/08/2024 by Austin Ervin MD at OR [facility] Right: Chest CR BARD : PERIPHERAL VASCULAR [id number] 01/23/2025 [id number] / / [id number] documented as of this encounter Procedures Procedure [...] TECHNOLOGIST REVIEW (12/21/2024 8:57 AM EDT) Pathologist [facility] 12/21/2024 9:24 AM EDT [facility] 56-02 Blood Venous blood specimen / Unknown Venipuncture / Unknown 12/21/2024 8:57 AM EDT 12/21/2024 8:57 AM EDT Chandler Winter MD LAB BLOOD ORDERABLES Fin al Result [facility] 56- [address] [place] [address] * (ABNORMAL) DIFFERENTIAL, AUTOMATED (12/21/2024 8:57 AM EDT) WBC 9.15 4.00 - 10.80 K/uL 12/21/2024 9:24 AM EDT [facility] 56- Neutrophils % 73.3 40.0 - 75.0 % 12/21/2024 9:24 AM EDT [facility] 56- Lymphocytes % 13.6(L) 18.0 - 42.0 % 12/21/2024 9:24 AM EDT [facility] 56- Monocytes % 9.9 1.0 - 11.0 % 12/21/2024 9:24 AM EDT [facility] 56- Eosinophils % 2.7 0.0 - 6.0 % 12/21/2024 9:24 AM EDT [facility] 56-02 Basophils % 0.5 0.0 - 2.0 % 12/21/2024 9:24 AM EDT [facility] 56-02 Absolute Neutrophils 6.70 1.80 - 7.70 K/uL 12/21/2024 9:24 AM EDT [facility] 56-02 Absolute Lymphocytes 1.24 1.00 - 4.80 K/ul 12/21/2024 9:24 AM EDT [facility] 56-02 Absolute Monocytes 0.91 0.00 - 1.10 K/uL 12/21/2024 9:24 AM EDT [facility] 56-02 Absolute Eosinophils 0.25 0.00 - 0.70 K/uL 12/21/2024 9:24 AM EDT [facility] 56-02 Absolute Basophils 0.05 0.00 - 0.20 K/uL 12/21/2024 9:24 AM EDT [facility] 56-02 Blood Venous blood specimen / Unknown Venipuncture / Unknown 12/21/2024 8:57 AM EDT 12/21/2024 8:57 AM EDT Chandler Winter MD LAB BLOOD ORDERABLES Fin al Result [facility] [address] [place] [address] * (ABNORMAL) CBC (12/21/2024 8:57 AM EDT) [facility] WBC 9.15 4.00 - 10.80 K/uL 12/21/2024 9:24 AM EDT [facility] 56 RBC 4.28 4.50 - 5.25 M/uL 12/21/2024 9:24 AM EDT [facility] 56 HGB 13.7(L) 14.0 - 16.8 g/dL 12/21/2024 9:24 AM EDT [facility] 56 HCT 41.2 40.0 - 48.4 % 12/21/2024 9:24 AM EDT [facility] 56 MCV 96.3 82.0 - 99.5 fL 12/21/2024 9:24 AM EDT [facility] 56 MCH 32.0 27.0 - 34.0 pg 12/21/2024 9:24 AM EDT [facility] 56 MCHC 33.3 32.0 - 36.0 g/dL 12/21/2024 9:24 AM EDT [facility] 56 RDW 12.9 11.5 - 15.5 % 12/21/2024 9:24 AM EDT [facility] 56 PLT 218 140 - 400 K/uL 12/21/2024 9:24 AM EDT [facility] 56 MPV 9.2 6.6 - 11.1 fL 12/21/2024 9:24 AM EDT [facility] 56 Blood Venous blood specimen / Unknown Venipuncture / Unknown 12/21/2024 8:57 AM EDT 12/21/2024 8:57 AM EDT Chandler Winter MD LAB BLOOD ORDERABLES Fin al Result [facility] [address] [place] [address] * (ABNORMAL) COMPREHENSIVE METABOLIC PANEL (12/21/2024 8:57 AM EDT) BUN 20 6 - 20 mg/dL 12/21/2024 9:24 AM T [address] CREATININE 1.6(H) 0.6 - 1.2 mg/dL 12/21/2024 9:24 AM T [facility] 56 EGFR 41(L) >=60 mL/min 12/21/2024 9:24 AM T [facility] 56 Comment:eGFR is calculated b ased on the CKD-EPI 2020 equation. SODIUM 141 135 - 146 mmol/L 12/21/2024 9:24 AM T [facility] 56 POTASSIUM 4.2 3.5 - 5.1 mmol/L 12/21/2024 9:24 AM T [facility] 56 CHLORIDE 109(H) 98 - 107 mmol/L 12/21/2024 9:24 AM T [address] CO2 21(L) 22 - 32 mmol/L 12/21/2024 9:24 AM T [address] ANION GAP 11 7 - 15 mmol/L 12/21/2024 9:24 AM T [facility] 56 GLUCOSE 110 70 - 120 mg/dL 12/21/2024 9:24 AM T [facility] 56 Albumin 4.1 3.8 - 5.0 g/dL 12/21/2024 9:24 AM T [facility] 56 AST 31 10 - 50 U/L 12/21/2024 9:24 AM T [facility] 56 Alkaline Phosphatase 42 35 - 130 U/L 12/21/2024 9:24 AM T [facility] 56 Bilirubin, Total 0.5 <=1.2 mg/dL 12/21/2024 9:24 AM T [facility] 56 CALCIUM 9.1 8.4 - 10.2 mg/dL 12/21/2024 9:24 AM T [facility] 56 Protein 7.1 6.0 - 8.3 g/dL 12/21/2024 9:24 AM T [facility] 56 ALT 25 10 - 50 U/L 12/21/2024 9:24 AM EDT LABORATORY [place] 56-02 Blood Venous blood specimen / Unknown Venipuncture / Unknown 12/21/2024 8:57 AM EDT 12/21/2024 8:57 AM EDT us Chandler Winter MD LAB BLOOD ORDERABLES Fin al Result [facility] 56- [address] [place], [place] [address] documented in this encounter Visit Diagnoses Diagnosis Urothelial carcinoma of kidney, right (HCC) Encounter for long-term (current) use of medications Encounter for long-term (current) use of other medications Dysuria documented in this encounter Advance Directives Documents on File Type Date Recorded Patient Director [employer] Expl anation Advance Directives and Living Will [...] Agen t (per Health Care Power of Avionics Systems Technician document) Care Teams Gear Tooth Grinding Machine Operator Relationship Specialty Start Date End Date Henrik Campbell DO [address] [place] [address] PCP - General Family Medicine 06/02/18 documented as of this encounter
--- OUTSIDE RECORDS SUMMARY | 2025-01-05 06:44 | External Medical Summary | Summary of Care ---
Author Name Unknown Organization [facility] Address [address] [place] [place] [address] Phone [phone] Care Team Providers Care Sequins Spooler Name Role Phone Campbell Henrik Brandgabbi Primary Care Provider Encounter Details Date Type Department Care Team (Late st Contact Info) Description 12/25/2024 Telephone Urology Woody Serrano [address] [place] [address] [place] [address] Roberto Edwards MD [address] [place] [address] Allergies Active Allergy Reactions Criticality Noted Date [...] Budesonide 32 MCG/ACT Nasal Suspension Administer 1 [place] into nostril in the morning. Active Rimegepant [...] mRNA, LNP-s, No Pre serve, 2-Dose Series (PROVENTIX SYSTEMS) 07/17/2021,11/22/2020,10/26/2020 Pneumococcal Conjugate Vacc, 13 Valent (Prevnar) [...] 12:07 PM EDT Lmtcb-left detailed message to picking table worker abx, call with further questions * Telephone Encounter - Roberto Edwards MD - 12/25/2024 11:43 AM EDT Patient's urine culture is positive. Covered with Macrobid. Thanks, HM documented in this encounter Plan of Treatment Upcoming Encounters Date Type Department Care Team (Late st Contact Info) Description 01/04/2025 9:00 AM EDT Laboratory Laboratory [facility] [place] [address] [place] [phone] Cheri, Lab [address]en[address] [place] [address] 01/04/2025 10:00 AM EDT [facility] 200 [facility] Lore [place] [phone] Cheri, Chair 9 Hem Onc [facility] 200 [facility] [place] [address] 01/19/2025 1:30 PM EDT Laboratory Laboratory [facility] [place] [address] [place] [phone] Cheri, Lab Scenery [address] [place] [address] 01/19/2025 2:00 PM EDT Office Visit Hematology/Oncology [facility] [address] [place] [phone] Chandler Winter MD [address] [place] [address] 01/19/2025 2:30 PM EDT [facility] [phone] 02/03/2025 1:30 PM EDT Telemedicine Psychiatry Ivy [place] [address] [place] [phone] Princess Kwon MD [address] [facility] [place] [address] 03/15/2025 3:00 PM EDT Procedure Only Urology, [facility] [address] [facility] [place] [address] Roberto Edwards MD [address] [place] [id number] 04/23/2025 10:40 AM EDT Telemedicine Neurology [address] [place], [place] [address] Nan Miller MD [address] [facility] [place], [place] [address] 04/29/2025 8:00 AM EDT Office Visit Pulmonary Medicine, [facility] [place] [phone] Luigi Bass MD [address] [facility] [place] [phone] 05/25/2025 9:00 AM EDT Office Visit [facility] [place] [address] Rema Carpenter CRNP [address] [facility] [place] [address] 06/08/2025 3:30 PM EDT Procedure Only Urology, [facility] [place] [phone] Roberto Edwards MD [address] [place] [address] 06/17/2025 2:20 PM EDT Office Visit Nephrology, [facility] [address] [place] [address] Reece Cross MD [address] [place], [place] [address] 11/23/2025 9:40 AM EDT Office Visit Family [facility] [address] [place] [address] Henrik Campbell, [address] [place] [address] Scheduled Procedures Name Priority Associated Diagnoses Date/Ti [...] Additional history exists CKD PHOS USE SMARTSET 74447 08/03/2025 08/03/2024, 1 09/20/2023 HbA1c 11/23/2025 11/23/2024, 10/2024, 05/04/2024, Additional history exists CKD HGB USE SMARTSET 66007 12/21/202512/21, 12/21/2024, 12/07/2024, Additional history exists Colonoscopy [...] this encounter Medical Devices Implanted Type Area Inbound Telemarketer Device Identifier Shelf Expiration Date Model / Serial / Lot Lens Intraoc 19.5 - [id number] - [id number] Implanted:Qty : 1 on 12/07/2021 by Eulogio Barrios MD at OR [facility] Left: Eye BAUSCH 07/25/2026 [id number] / [id number] / [id number] Lens Intraoc 19.5 - [id number] - [id number] Implanted:Qty : 1 on 12/19/2021 by Eulogio Barrios MD at OR [facility] Right: Eye BAUSCH 07/25/2026 [id number] / [id number] / [id number] Port Implant W8f Poly Cath - [id number] Implanted:Qty : 1 on 01/08/2024 by Austin Ervin MD at [facility] Right: Chest CR BARD : PERIPHERAL VASCULAR [id number] 01/23/2025 [id number] / / [id number] documented as of this encounter Visit Diagnoses Diagnosis History of UTI- Primary Personal history of urinary (tract) infection documented in this encounter Advance Directives Documents on File Type Date Recorded Patient Customer Services Supervisor Expl anation Advance Directives and Living Will [...] Agents on File Name Relationship Healthcare Agent [facility] Communication Roma Gutiérrez Spouse Health Care Agen t (per Health Care Power of Stacker Tender document) Care Teams Sequins Spooler Relationship Specialty Start Date End Date Henrik Campbell DO [facility] [place] [address] PCP - General Family Medicine 06/02/18 documented as of this encounter
--- OUTSIDE RECORDS SUMMARY | 2025-01-05 06:44 | External Medical Summary | Summary of Care ---
Author Name Unknown Organization [facility] Address [address] [place] [address] Phone [phone] Care Team Providers Care Ceramic Coater Machine Name Role Phone Henrik Campbell DO Primary Care Provider Reason for Visit * Reason Comments Chemotherapy Opdivo [id number] * Episode Based Medications (Routine) - Authorized Specialty Diagnoses / Procedures Referred By Contac t Referred To Contact Diagnoses Urothelial carcinoma of kidney, right (HCC) Procedures AR INJECTION, NIVOLUMAB Chandler Winter MD [address] [place] [address] [place] [address] Phone: tel: fax: Hematology/Oncology Treatment, [address] [address] Phone: tel: fax: Referral ID Status Reason Start Date Expiration Date V isits Requested Visits Authorized [id number] Authorized 12/23/2023 08/25/2099 [id number] Encounter Details Date Type Department Care Team (Latest Contact Info) Description 12/21/2024 10:00 AM EDT Hem/Onc Treatment Hematology/Oncolog y Treatment, [address] [address] Cheri, Chair 4 Hem Onc [address] [place] [address] Urothelial carcinoma of kidney, right (HCC)*; [...] Budesonide 32 MCG/ACT Nasal Suspension Administer 1 [place] into nostril in the morning. Active Rimegepant [...] mRNA, LNP-s, No Pre serve, 2-Dose Series (TapFit) 07/17/2021,11/22/2020,10/26/2020 Pneumococcal Conjugate Vacc, 13 Valent (Prevnar) [...] Description 01/04/2025 9:00 AM EDT Laboratory Laboratory [facility] [place] [address] [phone] Cheri, Lab [facility] [address] [place] [address] 01/04/2025 10:00 AM EDT [facility] 200 [facility] [place] [address] Cheri, Chair 9 Hem Onc [place] [address] [place] [place] [address] 01/19/2025 1:30 PM EDT Laboratory Laboratory [facility] Cheri [place] [address] [address] Cheri, Lab [facility] [address] [place] [address] [address] 01/19/2025 2:00 PM EDT Office Visit Hematology/Oncology [facility] Cheri [place] [address] [place] [phone] Chandler Winter MD 200 [facility] [place] [address] 01/19/2025 2:30 PM EDT Hem/Onc Treatment Hematology/Oncology Treatment, [address] [place] [address] 02/03/2025 1:30 PM EDT Telemedicine Psychiatry [place] [address] [place] [phone] Princess Kwon MD [address] [place] [address] 03/15/2025 3:00 PM EDT Procedure Only Urology, [facility] [address] [place] [phone] Roberto Edwards MD [address] [place] [address] 04/23/2025 10:40 AM EDT Telemedicine Neurology Paras [place] [address] [place] [address] Nan Miller MD [address] [place], [place] [phone] 04/29/2025 8:00 AM EDT Office Visit Pulmonary Medicine, [facility] [address] [place] [phone] Luigi Bass MD [address] [place] [address] 05/25/2025 9:00 AM EDT Office Visit Family Practice [facility] [address] [place] [address] Rema Carpenter CRNP [address] [place] [address] 06/08/2025 3:30 PM EDT Procedure Only Urology, [facility] [address] [place] [phone] Roberto Edwards MD [address] [place] [address] 06/17/2025 2:20 PM EDT Office Visit Nephrology, Donald Alonzo [address] [address] Reece Cross MD 200 [facility] [place] [address] 11/23/2025 9:40 AM EDT Office Visit [facility] [address] [place] [address] Henrik Campbell DO [address] [place] [address] Scheduled Procedures Name Priority Associated Diagnoses Date/Ti [...] Additional history exists CKD PHOS USE SMARTSET 69054 08/03/2025 08/03/2024, 1 09/20/2023 HbA1c 11/23/2025 11/23/2024, 03/0 10/2024, 05/04/2024, Additional history exists CKD HGB USE SMARTSET 71364 12/21/202512/21, 12/21/2024, 12/07/2024, Additional history exists Colonoscopy [...] this encounter Medical Devices Implanted Type Area Voice Professor Device Identifier Shelf Expiration Date Model / Serial / Lot Lens Intraoc 19.5 - [id number] - [id number] Implanted:Qty : 1 on 12/07/2021 by Eulogio Barrios MD at OR [facility] Left: Eye BAUSCH 07/25/2026 [id number] / [id number] / [id number] Lens Intraoc 19.5 - [id number] - [id number] Implanted:Qty : 1 on 12/19/2021 by Eulogio Barrios MD at OR [facility] Right: Eye BAUSCH 07/25/2026 [id number] / [id number] / [id number] Port Implant W8f Poly Cath - [id number] Implanted:Qty : 1 on 01/08/2024 by Austin Ervin MD at OR [facility] Right: Chest CR BARD : PERIPHERAL VASCULAR [id number] 01/23/2025 [id number] / / [id number] documented as of this encounter Visit Diagnoses [...] Documents on File Type Date Recorded Patient Dining Host Expl anation Advance Directives and Living Will [...] Agents on File Name Relationship Healthcare Agent [facility] p Communication Roma Gutiérrez Spouse Health Care Agen t (per Health Care Power of Senior Qa Automation Engineer document) Care Teams Ceramic Coater Machine Relationship Specialty Start Date End Date Henrik Campbell DO [address] [place] [address] PCP - General Family Medicine 06/02/18 documented as of this encounter
--- OUTSIDE RECORDS SUMMARY | 2025-01-05 06:44 | External Medical Summary ---
Author Name Unknown Address Unknown Organization K01:LABORATORY [facility] [place] - [address] [place] [address] Laboratory Report Ordering Provider Test Date Status JEAN PIERRE SON 12/21/2024 08:57:20 Final Observation Date Value Abnormality Reference (Units ) Status TSH 12/21/2024 08:57:20 5.35 Above high normal 0. 27-4.20 (uIU/mL) Final Performing Location LABORATORY [facility] [place] - [address] [place] [address]
--- OUTSIDE RECORDS SUMMARY | 2025-01-05 06:44 | External Medical Summary | Summary of Care ---
Author Name Unknown Organization [facility] Address [address] [place] [address] Phone [phone] Care Team Providers Care Pharmacy Intake Technician Name Role Phone Campbell Henrik Brandgabbi Primary Care Provider Encounter Details Date Type Department Care Team (Late st Contact Info) Description 12/25/2024 Telephone Urology Woody Serrano [address] [place] [address] [place] [address] Roberto Edwards MD [address] [place] [address] Allergies Active Allergy Reactions Criticality Noted Date [...] Budesonide 32 MCG/ACT Nasal Suspension Administer 1 [place] into nostril in the morning. Active Rimegepant [...] mRNA, LNP-s, No Pre serve, 2-Dose Series (Tippr) 07/17/2021,11/22/2020,10/26/2020 Pneumococcal Conjugate Vacc, 13 Valent (Prevnar) [...] 12:07 PM EDT Lmtcb-left detailed message to cotton picker abx, call with further questions * Telephone Encounter - Roberto Edwards MD - 12/25/2024 11:43 AM EDT Patient's urine culture is positive. Covered with Macrobid. Thanks, HM documented in this encounter Plan of Treatment Upcoming Encounters Date Type Department Care Team (Late st Contact Info) Description 01/04/2025 9:00 AM EDT Laboratory Laboratory [facility] Cheri [place] [address] [place] [phone] [address] [place], [place] [address] 01/04/2025 10:00 AM EDT Hem/Onc Treatment Hematology/Oncology Treatment, [place] [address] [place] [phone] Cheri, Chair 9 Hem Onc [facility] [address] [place] [address] 01/19/2025 1:30 PM EDT Laboratory Laboratory [facility] Cheri [place] [address] [place] [address] Cheri Lab [facility] [address] [facility] CHRISTOPH, [place] [address] 01/19/2025 2:00 PM EDT Office Visit Hematology/Oncology [facility] Cheri [place] [address] [place] [address] Chandler Winter MD [address] [place] [address] 01/19/2025 2:30 PM EDT Hem/Onc Treatment Hematology/Oncology Treatment, [place] [address] [place] [address] 02/03/2025 1:30 PM EDT Telemedicine Psychiatry Diogo Squires [address] [place] [address] Princess Kwon MD [address] [place] [address] 03/15/2025 3:00 PM EDT Procedure Only Urology, [facility] [address] [place] [phone] Roberto Edwards MD [address] [place] [id number] 04/23/2025 10:40 AM EDT Telemedicine Neurology Paras Landon [place] [address] [place] [address] Nan Miller MD [address] [place], [place] [address] 04/29/2025 8:00 AM EDT Office Visit Pulmonary Medicine, [facility] [address] [place], [place] [phone] Luigi Bass MD [address] [place] [address] 05/25/2025 9:00 AM EDT Office Visit Family Practice [facility] [address] [place] [address] Rema Carpenter CRNP [address] [place] [address] 06/08/2025 3:30 PM EDT Procedure Only Urology, [facility] [address] [place] [phone] Roberto Edwards MD [address] [place] [address] 06/17/2025 2:20 PM EDT Office Visit Nephrology, [facility] 200 [facility] [place] [address] Reece Cross MD [address] [place] [address] 11/23/2025 9:40 AM EDT Office Visit Family Practice [facility] [address] [place] [address] Henrik Campbell DO [address] [place] [address] Scheduled Procedures Name Priority Associated Diagnoses Date/Ti [...] Additional history exists CKD PHOS USE SMARTSET 22448 08/03/2025 08/03/2024, 1 09/20/2023 HbA1c 11/23/2025 11/23/2024, 03/10/2024, 05/04/2024, Additional history exists CKD HGB USE SMARTSET 73920 12/21/202512/21, 12/21/2024, 12/07/2024, Additional history exists Colonoscopy [...] this encounter Medical Devices Implanted Type Area Plant Scientist Device Identifier Shelf Expiration Date Model / Serial / Lot Lens Intraoc 19.5 - [id number] - [id number] Implanted:Qty : 1 on 12/07/2021 by Eulogio Barrios MD at OR [facility] Left: Eye BAUSC 07/25/2026 [id number] / [id number] / [id number] Lens Intraoc 19.5 - [id number] - [id number] Implanted:Qty : 1 on 12/19/2021 by Eulogio Barrios MD at OR [facility] Right: Eye BAUSC 07/25/2026 [id number] / [id number] / [id number] Port Implant W8f Poly Cath - [id number] Implanted:Qty : 1 on 01/08/2024 by Austin Ervin MD at OR [facility] Right: Chest CR BARD : PERIPHERAL VASCULAR [id number] 01/23/2025 [id number] / / [id number] documented as of this encounter Visit Diagnoses Diagnosis History of UTI- Primary Personal history of urinary (tract) infection documented in this encounter Advance Directives Documents on File Type Date Recorded Patient Type Proof Reproducer Expl anation Advance Directives and Living Will [...] Agen t (per Health Care Power of Professor Of Latin American Studies document) Care Teams Pharmacy Intake Technician Relationship Specialty Start Date End Date Henrik Campbell DO [address] [place] [address] PCP - General Family Medicine 06/02/18 documented as of this encounter
--- OUTSIDE RECORDS SUMMARY | 2025-01-05 06:45 | External Medical Summary | Summary of Care ---
Author Name Unknown Organization [facility] Address [address] [facility] [place] [address] Phone [phone] Care Team Providers Care Supervisor Landscape Name Role Phone Campbell Henrik Brandgabbi Primary Care Provider Encounter Details Date Type Department Care Team (Late st Contact Info) Description 12/16/2024 Orders Only Hematology/Oncology [facility] [address] [place] [address] Chandler Winter MD [address] [place] [address] Allergies Active Allergy Reactions Criticality Noted Date Comments Azelastine Unknown 02/01/2021 Onabotulinumtoxina Other (Please comment) High 01/20/2021 Swallowing difficulty after injection documented as of this encounter (statuses as of 12/17/2024) Medications VITAMIN B-12 100 MCG PO TABS [...] Budesonide 32 MCG/ACT Nasal Suspension Administer 1 [place] into nostril in the morning. Active Rimegepant [...] as of this encounter (statuses as of 12/17/2024) Active Problems Problem Noted Date Diagnosed Date [...] as of this encounter (statuses as of 12/17/2024) Resolved Problems Problem Noted Date Diagnosed Date [...] as of this encounter (statuses as of 12/17/2024) Immunizations Name Administration Dates Next Due COVID-19 [...] No 07/09/2024 Does the household have a [facility] hospit[facility] source of income? (Household - for ages [...] Description 12/21/2024 9:00 AM EDT Laboratory Laboratory [facility] 200 [facility] [place] [phone] Cheri Lab [place] [address] [place] [address] 12/21/2024 9:30 AM EDT Office Visit Hematology/Oncology [facility] 200 [facility] [place] [address] Renea Easley CRNP [address] [place] [address] [place] [address] 12/21/2024 10:00 AM EDT Hem[facility] [address] [place] [phone] Cheri, Chair 4 Hem Onc [address] [place] [address] 02/03/2025 1:30 PM EDT Telemedicine Psychiatry Diogo Squires 9 [place] [address] Princess Kwon MD [address] [place], [place] [address] 03/15/2025 3:00 PM EDT Procedure Only Urology, [facility] [address] [place] [place], [place] [address] Roberto Edwards MD [address] [place] [address] 04/23/2025 10:40 AM EDT Telemedicine Neurology Di[address] [place] [address] Nan Miller MD [address] [place], [place] [address] 04/29/2025 8:00 AM EDT Office Visit Pulmonary Medicine, [facility] [address] [place] [address] Luigi Bass MD [address] [facility] [place] [address] 05/25/2025 9:00 AM EDT Office Visit Family Practice [facility] [address] [place], [place] [address] Rema Carpenter CRNP [address] [place] [place], [place] [address] 06/08/2025 3:30 PM EDT Procedure Only Urology, [facility] [address] [place] [address] Roberto Edwards MD [address] [place] [address] 06/17/2025 2:20 PM EDT Office Visit Nephrology, [facility] [place] [address] [place] [address] Reece Cross MD [address] [place] [address] 11/23/2025 9:40 AM EDT Office Visit [facility] [address] [place] [address] Henrik Campbell DO [address] [place] [address] Scheduled Procedures Name Priority Associated Diagnoses Date/Ti [...] Additional history exists CKD PHOS USE SMARTSET 95096 08/03/2025 08/03/2024, 1 09/20/2023 HbA1c 11/23/2025 11/23/2024, 03/0 10/2024, 05/04/2024, Additional history exists CKD HGB USE SMARTSET 42847 12/07/202512/07, 12/07/2024, 11/23/2024, Additional history exists Colonoscopy [...] this encounter Medical Devices Implanted Type Area Smokehouse Worker Device Identifier Shelf Expiration Date Model / Serial / Lot Lens Intraoc 19.5 - [id number] - [id number] Implanted:Qty : 1 on 12/07/2021 by Eulogio Barrios MD at OR [facility] Left: Eye BAUSCH 07/25/2026 [id number] / [id number] / [id number] Lens Intraoc 19.5 - [id number] - [id number] Implanted:Qty : 1 on 12/19/2021 by Eulogio Barrios MD at OR [facility] Right: Eye BAUSCH 07/25/2026 [id number] / [id number] / [id number] Port Implant W8f Poly Cath - [id number] Implanted:Qty : 1 on 01/08/2024 by Austin Ervin MD at OR [facility] Right: Chest CR BARD : PERIPHERAL VASCULAR [id number] 01/23/2025 [id number] / / [id number] documented as of this encounter Advance Directives Documents on File Type Date Recorded Patient Sales Department Supervisor Expl anation Advance Directives and Living [...] Agen t (per Health Care Power of Glass Forming Engineer document) Care Teams Supervisor Landscape Relationship Specialty Start Date End Date Henrik Campbell DO [address] [place] [address] PCP - General Family Medicine 06/02/18 documented as of this encounter
--- OUTSIDE RECORDS SUMMARY | 2025-01-05 06:45 | External Medical Summary ---
Author Name Unknown Address Unknown Organization K01:[facility] - [address] [place] [address] Laboratory Report Ordering Provider Test Date Status JEAN PIERRE SON 12/21/2024 08:57:20 Final Observation Date Value Abnormality Reference (Units ) Status T4, Free 12/21/2024 08:57:20 1.1 0.9-1.7 (n g/dL) Final Performing Location [facility] - [address] [place] [address]
--- OUTSIDE RECORDS SUMMARY | 2025-01-05 06:45 | External Medical Summary ---
Author Name Unknown Address Unknown Organization K09:[facility] [address] [place] [address] Laboratory Report Ordering Provider Test Date Status JEAN PIERRE SON 12/21/2024 08:57:20 Final Observation Date Value Abnormality Reference (Units ) Status BUN 12/21/2024 08:57:20 20 6-20 (mg/dL) Final Creatinine 12/21/2024 08:57:20 1.6 Above high normal 0.6-1.2 (mg/dL) Final Glomerular filtration rate/1.73 sq M.predicted [Volume Rate/Area] in Serum, Plasma or Blood by Creatinine-based formula (CKD-EPI) 12/21/2024 08:57:20 41 Below low normal >=60 (mL/min) Final eGFR is calculated based on the CKD-EPI 2020 equation. Sodium 12/21/2024 08:57:20 141 135-146 (m mol/L) Final Potassium 12/21/2024 08:57:20 4.2 3.5-5.1 (m mol/L) Final Cl 12/21/2024 08:57:20 109 Above high normal 98 -107 (mmol/L) Final CO2 12/21/2024 08:57:20 21 Below low normal 22- 32 (mmol/L) Final Anion gap 12/21/2024 08:57:20 11 7-15 (mmol /L) Final Glucose 12/21/2024 08:57:20 110 70-120 (mg /dL) Final Albumin 12/21/2024 08:57:20 4.1 3.8-5.0 (g /dL) Final AST (Aspartate aminotransferase) 12/21/2024 08:57:20 31 10-50 (U/L) Fin al Alk Phos 12/21/2024 08:57:20 42 35-130 (U/ L) Final Bilirubin, Total 12/21/2024 08:57:20 0.5 <=1 .2 (mg/dL) Final Calcium 12/21/2024 08:57:20 9.1 8.4-10.2 ( mg/dL) Final Protein 12/21/2024 08:57:20 7.1 6.0-8.3 (g /dL) Final ALT (Alanine aminotransferase) 12/21/2024 08:57:20 25 10-50 (U/L) Frederick vaughan Performing Location [facility] [address] [place] [address]
--- OUTSIDE RECORDS SUMMARY | 2025-01-05 06:45 | External Medical Summary | Summary of Care ---
Author Name Unknown Organization [facility] Address [address] [place] [address] Phone [phone] Care Team Providers Care Engineer Fishing Vessel Name Role Phone Adrian Henrik Brandgabbi Primary Care Provider Reason for Visit * Reason Onset Date Comments Test Results Imaging Study 12/17/2024 Encounter Details Date Type Department Care Team ([facility] st Contact Info) Description 12/17/2024 Telephone Hematology/Oncology [facility] [place] [facility] [place] [address] Chandler Winter MD [address] [place] [address] Test Results Imaging Study Allergies Active Allergy Reactions Criticality Noted Date [...] Budesonide 32 MCG/ACT Nasal Suspension Administer 1 [place] into nostril in the morning. Active Rimegepant [...] No 07/09/2024 Does the household have a [facility] source of income? (Household - for [...] encounter Miscellaneous Notes * Telephone Encounter - Dacia Nick LPN - 12/17/2024 12:22 PM EDT My G sent. * Telephone Encounter - Dacia Nick LPN - 12/17/2024 12:20 PM EDT ----- Message from Chandler Winter MD sent at 12/17/2024 12:01 PM EDT ----- PET IMPRESSION: Right nephroureterectomy. No FDG PET-CT evidence of recurrent or metastatic disease. documented in this encounter Plan of Treatment Upcoming Encounters Date Type Department Care Team (Late st Contact Info) Description 12/21/2024 9:00 AM EDT Laboratory Laboratory [facility] [place] [address] [place] [address] Cheri, [facility] [address] [place] [address] 12/21/2024 9:30 AM EDT Office Visit Hematology/Oncology [facility] [place] [address] [facility] [address] Renea Easley CRNP [address] [facility] [place] [address] 12/21/2024 10:00 AM EDT Hem/Onc Treatment Hematology/Oncology Treatment, [place] [address] [place], [place] [address] Cheri, Chair 4 Hem Onc [facility] 200 [facility] [place] [phone] 02/03/2025 1:30 PM EDT Telemedicine Psychiatry Diogo Squires [address] [place] [address] Princess Kwon MD [address] [place] [address] 03/15/2025 3:00 PM EDT Procedure Only Urology, [facility] [address] [place] [phone] Roberto Edwards MD [address] [facility] [place] [address] 04/23/2025 10:40 AM EDT Telemedicine Neurology Di[address] [place] [address] Nan Miller MD [address] [place] [address] 04/29/2025 8:00 AM EDT Office Visit Pulmonary Medicine, [facility] [address] [place], [place] [phone] Luigi Bass MD [address] [place] [address] 05/25/2025 9:00 AM EDT Office Visit [facility] [address] [place] [address] Rema Carpenter CRNP [address] [place] [address] 06/08/2025 3:30 PM EDT Procedure Only Urology, [facility] [address] [place] [phone] Roberto Edwards MD [address] [place] [address] 06/17/2025 2:20 PM EDT Office Visit Nephrology, [facility] [address] [facility] [address] [place] [address] Reece Cross MD 200 [facility] [place] [address] 11/23/2025 9:40 AM EDT Office Visit [facility] [address] [place] [address] Henrik Campbell DO [address] [place] [address] Scheduled Procedures Name Priority Associated Diagnoses Date/Ti me ESOPHAGOGASTRODUODENOSCOPY ( EGD), FLEXIBLE, TRANSORAL, DIAGNOSTIC Recall Evans's esophagus with esophagitis Health Maintenance Due Date Last Done Comments Adult Wellness Visit 12/16/2019 12/15/2018 Depression Monitoring 12/22/2024 12/23/2023 Albumin/Creatinine Ratio 05/04/2025 024, 11/06/2023, 03/22/2023, Additional history exists COVID-19 Vaccine ( season) 2025 11/03/2024, 07/17/2021, 11/22/2020, Additional history exists GFR 06/08/2025 12/07/2024, 03/3 08/2024, 11/09/2024, Additional history exists CKD PHOS USE SMARTSET 12035 08/03/2025 08/03/2024, 1 09/20/2023 HbA1c 11/23/2025 11/23/2024, 03/0 10/2024, 05/04/2024, Additional history exists CKD HGB USE SMARTSET 80091 12/07/202512/07, 12/07/2024, 11/23/2024, Additional history exists Colonoscopy [...] this encounter Medical Devices Implanted Type Area Badger Distiller Operator Device Identifier Shelf Expiration Date Model / Serial / Lot Lens Intraoc 19.5 - [id number] - [id number] Implanted:Qty : 1 on 12/07/2021 by Eulogio Barrios MD at OR [facility] Left: Eye BAUSCH 07/25/2026 [id number] / [id number] / [id number] Lens Intraoc 19.5 - [id number] - [id number] Implanted:Qty : 1 on 12/19/2021 by Eulogio Barrios MD at OR [facility] Right: Eye BAUSCH 07/25/2026 [id number] / [id number] / [id number] Port Implant W8f Poly Cath - [id number] Implanted:Qty : 1 on 01/08/2024 by Austin Ervin MD at OR [facility] Right: Chest CR BARD : PERIPHERAL VASCULAR [id number] 01/23/2025 [id number] / / [id number] documented as of this encounter Advance Directives Documents on File Type Date Recorded Patient Auto Service Station Attendant Expl anation Advance Directives and Living Will [...] Agen t (per Health Care Power of Roller Printing Supervisor document) Care Teams Engineer Fishing Vessel Relationship Specialty Start Date End Date Henrik Campbell DO [address] [place] [address] PCP - General Family Medicine 06/02/18 documented as of this encounter
--- OUTSIDE RECORDS SUMMARY | 2025-01-05 06:45 | External Medical Summary | Summary of Care ---
Author Name Unknown Organization [facility] Address [address] [place] [address] Phone [phone] Care Team Providers Care Fruit Harvest Machine Operator Name Role Phone Adrian Henrik Brandgabbi Primary Care Provider Reason for Visit * Reason Onset Date Comments Test Results Imaging Study 12/17/2024 Encounter Details Date Type Department Care Team ([facility] st Contact Info) Description 12/17/2024 Telephone Hematology/Oncology [facility] [place] [address] [facility] [facility] [place] [phone] Chandler Winter MD [address] [place] [address] Test Results Imaging Study Allergies Active Allergy Reactions Criticality Noted Date Comments Azelastine Unknown 02/01/2021 Onabotulinumtoxina Other (Please comment) High 01/20/2021 Swallowing difficulty after injection documented as of this encounter (statuses as of 12/18/2024) Medications VITAMIN B-12 100 MCG PO TABS [...] Budesonide 32 MCG/ACT Nasal Suspension Administer 1 [place] into nostril in the morning. Active Rimegepant [...] as of this encounter (statuses as of 12/18/2024) Active Problems Problem Noted Date Diagnosed Date [...] as of this encounter (statuses as of 12/18/2024) Resolved Problems Problem Noted Date Diagnosed Date [...] as of this encounter (statuses as of 12/18/2024) Immunizations Name Administration Dates Next Due COVID-19 [...] No 07/09/2024 Does the household have a [facility] source of income? (Household - for ages [...] Telephone Encounter - Dacia Nick LPN - 12/18/2024 7:36 AM EDT My G message read by patient's , Roma Gutiérrez at 1:09 pm on 12/17/2024. * Telephone Encounter - Dacia Nick LPN [...] Description 12/21/2024 9:00 AM EDT Laboratory Laboratory [facility] [place] [address] [place] [phone] Cheri, Lab [facility] 200 [facility] [place] [address] 12/21/2024 9:30 AM EDT Office Visit Hematology/Oncology [facility] [place] [address] [place] [phone] Renea Easley CRNP 400 [facility] [place] [id number] 12/21/2024 10:00 AM EDT Hem/Onc Treatment Hematology/Oncology Treatment, [place] [address] [place] [phone] Cheri, Chair 4 Hem Onc [facility] 200 [facility] [place] [address] 02/03/2025 1:30 PM EDT Telemedicine Psychiatry Diogo Squires [address] [place] [address] Princess Kwon MD [address] [place] [address] 03/15/2025 3:00 PM EDT Procedure Only Urology, [facility] [address] [place] [address] Roberto Edwards MD [address] [place] [id number] 04/23/2025 10:40 AM EDT Telemedicine Neurology [address], [place] [address] [place], [place] [address] Nan Miller MD [address] [place] [address] 04/29/2025 8:00 AM EDT Office Visit Pulmonary Medicine, [facility] [place] [phone] Luigi Bass MD [address] [place] [address] 05/25/2025 9:00 AM EDT Office [facility] [place] [address] Rema Carpenter CRNP 132 [facility] [address] 06/08/2025 3:30 PM EDT Procedure Only Urology, [facility] [place] [phone] Roberto Edwards MD [address] [place] [id number] 06/17/2025 2:20 PM EDT Office Visit Nephrology, [facility] [address] [place] [address] Reece Cross MD [address] [place] [address] 11/23/2025 9:40 AM EDT Office Visit [facility] [place] [address] Henrik Campbell DO [facility] [place] [address] Scheduled Procedures Name Priority Associated Diagnoses Date/Ti [...] Additional history exists CKD PHOS USE SMARTSET 32094 08/03/2025 08/03/2024, 1 09/20/2023 HbA1c 11/23/2025 11/23/2024, 0310/2024, 05/04/2024, Additional history exists CKD HGB USE SMARTSET 93960 12/07/202512/07, 12/07/2024, 11/23/2024, Additional history exists Colonoscopy [...] this encounter Medical Devices Implanted Type Area Ux Ui Designer Device Identifier Shelf Expiration Date Model / Serial / Lot Lens Intraoc 19.5 - [id number] - [id number] Implanted:Qty : 1 on 12/07/2021 by Eulogio Barrios MD at OR [facility] Left: Eye BAUSCH 07/25/2026 [id number] / [id number] / [id number] Lens Intraoc 19.5 - [id number] - [id number] Implanted:Qty : 1 on 12/19/2021 by Eulogio Barrios MD at OR [facility] Right: Eye BAUSCH 07/25/2026 [id number] / [id number] / [id number] Port Implant W8f Poly Cath - [id number] Implanted:Qty : 1 on 01/08/2024 by Austin Ervin MD at OR [facility] Right: Chest CR BARD : PERIPHERAL VASCULAR [id number] 01/23/2025 [id number] / / [id number] documented as of this encounter Advance Directives Documents on File Type Date Recorded Patient Shrinking Machine Operator Expl anation Advance Directives and [...] Agents on File Name Relationship Healthcare Agent Rylandms aniyah Communication Roma Gutiérrez Spouse Health Care Agen mayte (per Health Care Power of Breaker Hand document) Care Teams Fruit Harvest Machine Operator Relationship Specialty Start Date End Date Henrik Campbell DO [address] [place] [address] PCP - General Family Medicine 06/02/18 documented as of this encounter
--- OUTSIDE RECORDS SUMMARY | 2025-01-05 06:45 | External Medical Summary ---
Author Name Unknown Address Unknown Organization K01:[facility] [place] - [address] [place] [id number] Laboratory Report Ordering Provider Test Date Status LUCIA GRANT 12/21/2024 08:57:45 Final Observation Date Value Abnormality Reference (Units ) Status Bacteria identified in Specimen by Culture 12/21/2024 08:57:45 [id number]^AEROC OCCUS�SANGUI ZACKARY Abnormal Final >100,000 colonies/mL Aerococ cus�sanguinicola
Test: Culture, Urine, Quantitative
Specimen Source: Urine, Clean Catch
Specimen Type: Urine
Specimen Date: 12/21/202457
Result Date: 12/24/2024 1433
Result Status: Final result
Abnormal: Yes
Resulting Lab: [facility] [place]
[address]
[facility] [id number]

CULTURE

>100,000 colonies/mL Aerococcus�sanguinicola (Abnormal)

null Performing Location [facility] [place] - [address] [facility] [address]
--- OUTSIDE RECORDS SUMMARY | 2025-01-05 06:45 | External Medical Summary | Summary of Care ---
Author Name Unknown Organization [facility] Address [address] [place] [address] Phone [phone] Care Team Providers Care Cold Meat Cook Name Role Phone Henrik Campbell DO Primary Care Provider Reason for Visit * Reason Comments Chemotherapy opdivo * Episode Based Medications (Routine) - Authorized Specialty Diagnoses / Procedures Referred By Contac t Referred To Contact Diagnoses Urothelial carcinoma of kidney, right (HCC) Procedures CO INJECTION, NIVOLUMAB Chandler Winter MD [address] [facility] [place] [address] Phone: tel: fax: Hematology/Oncology Treatment, [address] [address] Phone: tel: fax: Referral ID Status Reason Start Date Expiration Date V isits Requested Visits Authorized [id number] Authorized 12/23/2023 08/25/2099 [id number] Encounter Details Date Type Department Care Team (Latest Contact Info) Description 12/07/2024 10:00 AM EDT Hem/Onc Treatment Hematology/Oncology Treatment, [address] [address] Cheri, Chair [address] Hem [address] [place] [address] Urothelial carcinoma of kidney, right (HCC)* Allergies Active Allergy Reactions Criticality Noted Date Comments Azelastine Unknown 02/01/2021 Onabotulinumtoxina Other (Please comment) High 01/20/2021 Swallowing difficulty after injection documented as of this encounter (statuses as of 12/07/2024) Medications VITAMIN B-12 100 MCG PO TABS [...] Budesonide 32 MCG/ACT Nasal Suspension Administer 1 [place] into nostril in the morning. Active Rimegepant [...] BY MOUTH IN THE MORNING 90 Capsule 11/18/19 25 Active Lidocaine-Prilocai ne 2.5-2.5 % [...] as of this encounter (statuses as of 12/07/2024) Active Problems Problem Noted Date Diagnosed Date [...] as of this encounter (statuses as of 12/07/2024) Resolved Problems Problem Noted Date Diagnosed Date [...] as of this encounter (statuses as of 12/07/2024) Immunizations Name Administration Dates Next Due COVID-19 mRNA, LNP-s, No Pre serve, 2-Dose Series (RewardsPay) 07/17/2021,11/22/2020,10/26/2020 Pneumococcal Conjugate Vacc, 13 Valent (Prevnar) [...] in this encounter Nursing Notes * Kenzie Nunez, EDYTA - 12/07/2024 11:06 AM EDT Infusion complete. [...] left facility in stable condition. * Kenzie Nunez RN - 12/07/2024 10:25 AM EDT Chair [...] Care Team (Late st Contact Info) Description 2024 1:30 PM EDT PulmDiagnostic Pulmonary Function Lab, [facility] [address] [place] [address] [place], Pft [address] [place] [address] 12/14/2024 8:45 AM EDT Imaging Radiology [address] [place] [address] 12/21/2024 9:00 AM EDT Laboratory Laboratory [facility] [address] [place] [phone] Cheri, Lab [facility] [address] [place] [address] 12/21/2024 9:30 AM EDT Office Visit Hematology/Oncology [facility] [place] [address] [place] [phone] Renea Easley CRNP [address] [place] [address] [place] [address] 12/21/2024 10:00 AM EDT Hem/Onc Treatment Hematology/Oncology Treatment, [place] [address] [place] [address] Park, Chair 4 Hem Onc Scenery [address] [place] [address] 02/03/2025 1:30 PM EDT Telemedicine Psychiatry Diogo Squires [address] [place] [address] Princess Kwon MD [address] [place] [address] 03/15/2025 3:00 PM EDT Procedure Only Urology, [facility] [address] [facility] [place] [phone] Roberto Edwards MD [address] [place] [id number] 04/23/2025 10:40 AM EDT Telemedicine Neurology Paras Landon [place] [address] [place] [address] Nan Miller MD [address] [place] [address] 04/29/2025 8:00 AM EDT Office Visit Pulmonary Medicine, [facility] [address] [facility] [place] [phone] Luigi Bass MD [address] [place] [id number] 05/25/2025 9:00 AM EDT Office Visit Family Practice [facility] [address] [place] [address] Rema Carpenter CRNP [address] [facility] [place] [address] 06/08/2025 3:30 PM EDT Procedure Only Urology, [facility] [address] [place] [address] Roberto Edwards MD [address] [place] [address] 06/17/2025 2:20 PM EDT Office Visit Nephrology, [facility] [address] [facility] [place] [address] Reece Cross MD [address] [facility] [place] [address] 11/23/2025 9:40 AM EDT Office Visit Family Practice [facility] [address] [place] [address] Henrik Campbell DO [address] [place] [address] Scheduled Procedures Name Priority Associated Diagnoses Date/Ti [...] Additional history exists CKD PHOS USE SMARTSET 30154 08/03/2025 08/03/2024, 1 09/20/2023 HbA1c 11/23/2025 11/23/2024, 03/10/2024, 05/04/2024, Additional history exists CKD HGB USE SMARTSET 76964 12/07/202512/07, 12/07/2024, 11/23/2024, Additional history exists Colonoscopy [...] this encounter Medical Devices Implanted Type Area Implementation Consultant Device Identifier Shelf Expiration Date Model / Serial / Lot Lens Intraoc 19.5 - [id number] - [id number] Implanted:Qty : 1 on 12/07/2021 by Eulogio Barrios MD at OR [facility] Left: Eye BAUSC 07/25/2026 [id number] / [id number] / [id number] Lens Intraoc 19.5 - [id number] - [id number] Implanted:Qty : 1 on 12/19/2021 by Eulogio Barrios MD at OR [facility] Right: Eye BAUSCH 07/25/2026 [id number] / [id number] / [id number] Port Implant W8f Poly Cath - [id number] Implanted:Qty : 1 on 01/08/2024 by Austin Ervin MD at OR [facility] Right: Chest CR BARD : PERIPHERAL VASCULAR [id number] 01/23/2025 [id number] / / [id number] documented as of this encounter Visit Diagnoses [...] Documents on File Type Date Recorded Patient Behavioral Analyst Expl anation Advance Directives and Living Will [...] Agents on File Name Relationship [facility] Roma Gutiérrez Spouse Health Care Agen t (per Health Care Power of [employer] document) Care Teams Cold Meat Cook Relationship Specialty Start Date End Date Henrik Campbell DO [address] [place] [address] PCP - General Family Medicine 06/02/18 documented as of this encounter
--- OUTSIDE RECORDS SUMMARY | 2025-01-05 06:45 | External Medical Summary | Summary of Care ---
Author Name Unknown Organization [facility] Address [address] [place] [address] Phone [phone] Care Team Providers Care Communications Marketing Intern Name Role Phone Ross Campbellbrian Brandgabbi Primary Care Provider Reason for Visit * Reason Onset Date Comments Advice 11/19/2024 Encounter Details Date Type Department Care Team (Late st Contact Info) Description 11/19/2024 Telephone Urology Woody Serrano [address] [place] [address] [place] [address] Roberto Edwards MD [address] [place] [address] Advice Allergies Active Allergy Reactions Criticality Noted Date Comments Azelastine Unknown 02/01/2021 Onabotulinumtoxina Other (Please comment) High 01/20/2021 Swallowing difficulty after injection documented as of this encounter (statuses as of 2024) Medications VITAMIN B-12 100 MCG PO TABS Take 1 Tablet by mouth daily with dinner. Active albuterol (PROAIR HFA) 108 (90 BASE) MCG/ACT inhaler Inhale 2 Puffs by mouth every 4 hours as needed for Cough or Wheezing. With spacer 1 Inhaler 1 018 Active Sildenafil Citrate 100 MG Oral Tablet TAKE ONE TABLET BY MOUTH NEEDED FOR ED 021 Active Meclizine HCl 25 MG Oral Tablet (Antivert)Indicat ions:Hospital discharge follow-up,Nausea Take 1 Tablet by mouth 3 times a day as needed for Dizziness. 60 Tablet 1 022 Active Esomeprazole Magnesium 20 MG Oral Capsule Delayed Release (NexIUM) Take by mouth 1 Capsule daily before breakfast . 90 Capsule 3 022 Active Budesonide 32 MCG/ACT Nasal Suspension Administer 1 [place] into nostril in the morning. Active Rimegepant Sulfate 75 MG Oral Tablet Disintegrating 75 mg. 023 Active Triamcinolone Acetonide 0.1 % External Ointment (Aristocort)Indic ations:Other atopic dermatitis Apply topically to affected area 2 times a day. To affected area. 454 g 3 024 Active Metoclopramide HCl 10 MG Oral Tablet (Reglan) Take 1 Tablet by mouth every 6 hours as needed for Nausea. 30 Tablet 024 Active Docusate Sodium 100 MG Oral Capsule (Colace) Take 1 Capsule by mouth in the morning and 1 Capsule before bedtime. 30 Capsule 1 Active Additional Information Patient taking differently:100 mg Oral BID (.AM/PM),As needed, Reported on 11/23/2024 Ondansetron 4 MG Oral Tablet Disintegrating (Zofran) Place 1 Tablet on tongue every 6 hours as needed for Nausea. 30 Tablet 1 024 Active Metaxalone 800 MG Oral Tablet (Skelaxin) TAKE 1 TABLET BY MOUTH AT BEDTIME AND 1/2 TO 1 TABLET UP TO AN ADDITIONAL TWO TIMES DAILY NEEDED FOR NECK AND HEAD PAIN. 90 Tablet 11 024 Active Qulipta 10 MG Oral Tablet (Atogepant) Take by mouth. Act robert buPROPion HCl 100 MG Oral Tablet (Wellbutrin) Take 0.5 Tablets by mouth in the morning and 0.5 Tablets before bedtime. 30 Tablet 5 024 Active Mirtazapine 15 MG Oral Tablet (Remeron) Take 1 Tablet by mouth at bedtime. 30 Tablet 5 024 Active LORazepam 0.5 MG Oral Tablet (Ativan) Take 0.5 Tablets by mouth every night at bedtime. NO EARLY REFILLS Do not start before November 23, 2024. 15 Tablet 3 025 Active Finasteride 5 MG Oral Tablet (Proscar)Indicati ons:BPH with obstruction/lower urinary tract symptoms Take 1 Tablet by mouth in the morning. 90 Tablet 3 025 Active Tamsulosin HCl 0.4 MG Oral Capsule (Flomax)Indicatio ns:BPH with obstruction/lower urinary tract symptoms TAKE ONE CAPSULE BY MOUTH IN THE MORNING 90 Capsule 3 025 Active Lidocaine-Priloca ine 2.5-2.5 % External Cream (Emla)Indications :Urothelial carcinoma of kidney, right (HCC) Apply topically to affected area as needed for Other (none). APPLY TO SKIN OVER MEDIPORT & COVER 1HR PRIOR TO ACCESSING. 30 g 2 025 Active Nitrofurantoin Monohyd Macro 100 MG Oral Capsule (Macrobid) Take 1 Capsule by mouth in the morning and 1 Capsule before bedtime. With food.. 10 Capsule 025 Active Lisinopril-hydroC HLOROthiazide 20-12.5 MG Oral Tablet TAKE 1 TABLET BY MOUTH ONCE DAILY 90 Tablet 1 024 2024 Discontinued(M edication List Clean Up) Magic Swizzle (Lidocaine-Benadr yl-Maalox) oral solution Swish and spit 15 mL in the morning and 15 mL at noon and 15 mL in the evening and 15 mL before bedtime. 240 mL 024 2024 Discontinued(M edication List Clean Up) Propranolol HCl 20 MG Oral Tablet (Inderal) Take 1 tablet at 6 am and 1 tablet at 2 pm daily 60 Tablet 5 024 2024 Discontinued Hospital, Clinic, or Other Facility Administered Medication [...] as of this encounter (statuses as of 2024) Active Problems Problem Noted Date Diagnosed Date [...] as of this encounter (statuses as of 2024) Resolved Problems Problem Noted Date Diagnosed Date [...] as of this encounter (statuses as of 2024) Immunizations Name Administration Dates Next Due COVID-19 [...] Telephone Encounter - Rema Swan LPN - 2024 3:15 PM EDT See myg * Telephone Encounter - Rema Swan LPN - 2024 1:02 PM EDT lmtcb * Telephone Encounter - Kenzie Nunez RN - 12/07/2024 10:06 AM EDT Per patient he is having burning with urination. States he has had this since having cysto done. * Telephone Encounter - Rema Swan LPN - 12/07/2024 9:33 AM EDT Not requested by urology. Is patient having UTI symptoms? Thank you Rema Swan LPN * Telephone Encounter - Renea Easley CRNP - 12/07/2024 9:10 AM EDT Patient stopped at [facility] today to drop off a urine sample. Oncology had not requested urine. Had Urology requested this? No order is currently in. Thank you! * Telephone Encounter - Radha [place] LPN - 11/20/2024 3:24 PM EDT Patient aware and verbalized understanding * Telephone Encounter - Cheryl Oscar OSA - 11/20/2024 12:17 PM EDT Pts returned a call back for Radha and asks to be called back at [phone] * Telephone Encounter - Radha [place] LPN - 11/20/2024 11:35 AM EDT lmtcb * Telephone Encounter - Roberto Edwards MD - 11/20/2024 11:31 AM EDT Bactrim ordered at the time of cystoscopy, not provided. Prescription for Macrobid sent to the patient's pharmacy. Urine culture order placed per patient request. HM * Telephone Encounter - Radha [place] LPN - 11/20/2024 8:28 AM EDT Patient states he does not recall receiving antibiotic in office. He notes he has mild irritation with urination but no other symptoms. He would like to have a urine culture order placed in the case over the weekend he would develop further symptoms. Ordered as requested. He will call with further concerns, or symptoms. * Telephone Encounter - Roberto Edwards MD - 11/19/2024 12:06 PM EDT Was the patient not provided his Bactrim pill at the time of cystoscopy? HM * Telephone Encounter - Nilda Cerrato lace tearing supervisor - 11/19/2024 10:35 AM EDT Incoming call fro patient's stating that Josiah was supposed to be prescribed an antibiotic. She is stating that the pharmacy did not receive a prescription. Please review, reach out to patient and advise if appropriate. Thank you, Nilda Cerrato Business Segment Manager [facility] 11/19/2024,10:37 AM documented in this encounter Plan of Treatment Upcoming Encounters Date Type Department Care Team (Late st Contact Info) Description 12/14/2024 8:45 AM EDT Imaging Radiology [facility] [address] [place] [address] 12/21/2024 9:00 AM EDT Laboratory Laboratory [facility] [address] [place] [address] Cheri, Lab Scenery [address] [facility] [place] [address] 12/21/2024 9:30 AM EDT Office Visit Hematology/Oncology [facility] [address] [place] [address] Renea Easley CRNP [address] [facility] [place] [address] 12/21/2024 10:00 AM EDT Hem/Onc Treatment Hematology/Oncology Treatment, [place] [address] [place] [address] Cheri, Chair 4 Hem Onc [facility] [address] [facility] [place] [address] 02/03/2025 1:30 PM EDT Telemedicine Psychiatry Diogo Squires [address] [place] [address] Princess Kwon MD [address] [place] [address] 03/15/2025 3:00 PM EDT Procedure Only Urology, [facility] [address] [place] [phone] Roberto Edwards MD [address] [place] [address] 04/23/2025 10:40 AM EDT Telemedicine Neurology [address] [place] [address] Nan Miller MD [address] [place] [address] 04/29/2025 8:00 AM EDT Office Visit Pulmonary Medicine, [facility] [address] [place] [phone] Luigi Bass MD [address] [place] [address] 05/25/2025 9:00 AM EDT Office Visit [facility] [address] [place] [address] Rema Carpenter CRNP [address] [place] [address] 06/08/2025 3:30 PM EDT Procedure Only Urology, [facility] [address] [place] [phone] Roberto Edwards MD [address] [place] [address] 06/17/2025 2:20 PM EDT Office Visit Nephrology, [facility] 200 [facility] [place] [address] Reece Cross MD 200 [facility] [place] [address] 11/23/2025 9:40 AM EDT Office Visit [facility] [address] [place] [address] Henrik Campbell DO [address] [place] [address] Scheduled Procedures Name Priority Associated Diagnoses Date/Ti [...] Additional history exists CKD PHOS USE SMARTSET 08621 08/03/2025 08/03/2024, 1 09/20/2023 HbA1c 11/23/2025 11/23/2024, 10/2024, 05/04/2024, Additional history exists CKD HGB USE SMARTSET 22481 12/07/202512/07, 12/07/2024, 11/23/2024, Additional history exists Colonoscopy [...] this encounter Medical Devices Implanted Type Area Assistant Reading Teacher Device Identifier Shelf Expiration Date Model / Serial / Lot Lens Intraoc 19.5 - [id number] - [id number] Implanted:Qty : 1 on 12/07/2021 by Eulogio Barrios MD at OR [facility] Left: Eye BAUSCH 07/25/2026 [id number] / [id number] / [id number] Lens Intraoc 19.5 - [id number] - [id number] Implanted:Qty : 1 on 12/19/2021 by Eulogio Barrios MD at OR [facility] Right: Eye BAUSCH 07/25/2026 [id number] / [id number] / [id number] Port Implant W8f Poly Cath - [id number] Implanted:Qty : 1 on 01/08/2024 by Austin Ervin MD at OR [facility] Right: Chest CR BARD : PERIPHERAL VASCULAR [id number] 01/23/2025 [id number] / [id number] documented as of this encounter Results * CULTURE, URINE, QUANTITATIVE (11/23/2024 8:34 AM EDT) Culture Growth No significant growth 11/24/2024 10:20 AM EDT [facility] Urine Urine specimen obtained by clean catch procedure / Unknown Non-blood Collection / Unknown 11/23/2024 8:34 AM EDT 11/23/2024 8:34 AM EDT Roberto Edwards MD LAB MICRO - GENERAL YAYO BUNCH Final Result [facility] [address] [place] [address] documented in this encounter Visit Diagnoses Diagnosis Urothelial carcinoma of kidney, 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
--- OUTSIDE RECORDS SUMMARY | 2025-01-05 06:45 | External Medical Summary ---
Author Name Unknown Address Unknown Organization K09:[facility] [place] [address] Laboratory Report Ordering Provider Test Date Status JEAN PIERRE SON 12/21/2024 08:57:20 Final Observation Date Value Abnormality Reference (Units ) Status Nucleated erythrocytes/100 leukocytes [Ratio] in Blood by Automated count 12/21/2024 08:57:20 Final Performing Location [facility] [place] [address]
--- OUTSIDE RECORDS SUMMARY | 2025-01-05 06:45 | External Medical Summary | Summary of Care ---
Author Name Unknown Organization [facility] Address [address] [place] [address] Phone [phone] Care Team Providers Care Staple Laster Name Role Phone Ross Campbellbrian Brandgabbi Primary Care Provider Reason for Visit * Reason Onset Date Comments Advice 11/19/2024 Encounter Details Date Type Department Care Team (Late st Contact Info) Description 11/19/2024 Telephone Urology Woody Serrano [address] [place] [address] [place] [address] Roberto Edwards MD [address] [place] [address] Advice Allergies Active Allergy Reactions Criticality Noted [...] Budesonide 32 MCG/ACT Nasal Suspension Administer 1 [place] into nostril in the morning. Active Rimegepant [...] intractable 01/17 HTN, goal below 140/90 09/07/2015 Veans's esophagus 09/24/2013 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 Other specified disorder of penis 06/20/2005 Frequent headaches Overview (11/16/2015): chronic frontal headaches ICD-10 update of inactive term Allergic rhinitis documented as of this encounter (statuses as of 12/07/2024) Resolved Problems Problem Noted Date Diagnosed Date Resolved Date Chronic kidney disease, stage 3a 05/04/2024 08/10/2024 Overview: Per CKD protocol Ileus, postoperative 12/01/2023 04 024 Viral upper respiratory tract infection 08/06/2018 [...] encounter Miscellaneous Notes * Telephone Encounter - Kenzie Nunez RN - 12/07/2024 10:06 AM EDT Per patient he is having burning with urination. States he has had this since having cysto done. * Telephone Encounter - Rema Swan LPN - 12/07/2024 9:33 AM EDT Not requested by urology. Is patient having UTI symptoms? Thank you Rema Swan LPN * Telephone Encounter - Renea Esaley CRNP - 12/07/2024 9:10 AM EDT Patient [...] and asks to be called back at [phone] * Telephone Encounter - Radha Sanchez LPN [...] HM * Telephone Encounter - Nilda Cerrato staker surveying - 11/19/2024 10:35 AM EDT Incoming call fro patient's stating that Josiah was supposed to be prescribed an antibiotic. She is stating that the pharmacy did not receive a prescription. Please review, reach out to patient and advise if appropriate. Thank you, Nilda Cerrato Meat Packager I [facility] ([facility]) 11/19/2024,10:37 AM documented in this encounter Plan of Treatment Upcoming Encounters Date Type Department Care Team (Late st Contact Info) Description 2024 1:30 PM EDT PulmDiagnostic Pulmonary Function Lab, [facility] [address] [place] [address] West, P[address] [place] [address] 12/14/2024 8:45 AM EDT Imaging Radiology [facility] 1st [facility] [address] [place] [address] 12/21/2024 9:00 AM EDT Laboratory [facility] [place] [address] [place] [address] Cheri, Lab Scenery [address] [place], [place] [address] 12/21/2024 9:30 AM EDT Office Visit Hematology/Oncology Scenery [place] [address] [place], [place] [address] Renea Easley CRNP [address] [facility] [place] [id number] 12/21/2024 10:00 AM EDT Hem/Onc Treatment Hematology/Oncology Treatment, [place] [address] [place], [place] [address] Cheri, Chair 4 Hem Onc Scenery [address] [place], [place] [address] 02/03/2025 1:30 PM EDT Telemedicine Psychiatry Ivy Squires [address] [place] [address] Princess Kwon MD [address] [facility] [place] [address] 03/15/2025 3:00 PM EDT Procedure Only Urology, [facility] [address] [place] [address] Roberto Edwards MD [address] [place] [id number] 04/23/2025 10:40 AM EDT Telemedicine Neurology [address] [place] [address] Nan Miller MD [address] [place] [address] 04/29/2025 8:00 AM EDT Office Visit Pulmonary Medicine, [facility] [address] [place] [address] Luigi Bass MD [address] [place] [address] 05/25/2025 9:00 AM EDT Office Visit [facility] [address] [place] [address] Rema Carpenter CRNP [address] [place] [address] 06/08/2025 3:30 PM EDT Procedure Only Urology, [facility] [address] [place] [address] Roberto Edwards MD [address] [place] [id number] 06/17/2025 2:20 PM EDT Office Visit Nephrology, [facility] 200 [facility] [place], [place] [address] Reece Cross MD [address] [place] [address] 11/23/2025 9:40 AM EDT Office Visit [facility] [address] [place] [address] Henrik Campbell DO [address] [place] [address] Scheduled Procedures Name Priority Associated Diagnoses Date/Ti [...] Additional history exists CKD PHOS USE SMARTSET 48393 08/03/2025 08/03/2024, 1 09/20/2023 HbA1c 11/23/2025 11/23/2024, 03/0 10/2024, 05/04/2024, Additional history exists CKD HGB USE SMARTSET 54153 12/07/202512/07, 12/07/2024, 11/23/2024, Additional history exists Colonoscopy [...] this encounter Medical Devices Implanted Type Area Corrosion Control Technician Device Identifier Shelf Expiration Date Model / Serial / Lot Lens Intraoc 19.5 - [id number] - [id number] Implanted:Qty : 1 on 12/07/2021 by Eulogio Barrios MD at OR [facility] Left: Eye BAUSC 07/25/2026 [id number] / [id number] / [id number] Lens Intraoc 19.5 - [id number] - [id number] Implanted:Qty : 1 on 12/19/2021 by Eulogio Barrios MD at OR [facility] Right: Eye BAUSCH 07/25/2026 [id number] / [id number] / [id number] Port Implant W8f Poly Cath - [id number] Implanted:Qty : 1 on 01/08/2024 by Austin Ervin MD at OR [facility] Right: Chest CR BARD : PERIPHERAL VASCULAR [id number] 01/23/2025 [id number] / / [id number] documented as of this encounter Results * CULTURE, URINE, QUANTITATIVE (11/23/2024 8:34 AM EDT) Culture Growth No significant growth 11/24/2024 10:20 AM EDT LABORATORY [facility] Urine Urine specimen obtained by clean catch procedure / Unknown Non-blood Collection / Unknown 11/23/2024 8:34 AM EDT 11/23/2024 8:34 AM EDT Roberto Edwards MD LAB MICRO - GENERAL YAYO BUNCH Final Result LABORATORY [facility] [address] [place] [address] documented in this encounter Visit Diagnoses Diagnosis Urothelial carcinoma of kidney, 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 Communication Roma Gutiérrez Spouse Health Care Agen t (per Health Care Power of Insulator Cutter And Former document) Care Teams Staple Laster Relationship Specialty Start Date End Date Henrik Campbell DO [address] [place] [address] PCP - General Family Medicine 06/02/18 documented as of this encounter
--- OUTSIDE RECORDS SUMMARY | 2025-01-05 06:45 | External Medical Summary | Summary of Care ---
Author Name Unknown Organization [facility] Address [address] [place] [address] Phone [phone] Care Team Providers Care Reimbursement Spec Name Role Phone Henrik Campbell DO Primary Care Provider Reason for Visit * Reason Comments Outpatient Testing Encounter Details Date Type Department Care Team (Late st Contact Info) Description 12/07/2024 9:00 AM EDT Laboratory Laboratory [facility] Cheri [place] [address] [place] [address] Meno, Lab Scenery [address] [place] [address] Urothelial carcinoma of kidney, right (HCC); Encounter [...] Budesonide 32 MCG/ACT Nasal Suspension Administer 1 [place] into nostril in the morning. Active Rimegepant [...] 1:30 PM EDT PulmDiagnostic Pulmonary Function Lab, [facility] [address] [place] [address] West, Pft [address] [place] [address] 12/14/2024 8:45 AM EDT Imaging Radiology [facility]st [facility] [address] [place] [address] 12/21/2024 9:00 AM EDT Laboratory Laboratory [facility] [address] [place] [address] Cheri, Lab Scenery [address] [place] [address] 12/21/2024 9:30 AM EDT Office Visit Hematology/Oncology Scenery [facility] [address] [place] [address] Renea Easley CRNP [address] [facility] [place] [address] 12/21/2024 10:00 AM EDT Hem/Onc Treatment Hematology/Oncology Treatment, [place] [address] [place] [address] Cheri, Chair 4 Hem Onc Scenery 200 [facility] [place], [place] [address] 02/03/2025 1:30 PM EDT Telemedicine Psychiatry [place] [address] [place] [address] Princess Kwon MD [address] [place] [address] 03/15/2025 3:00 PM EDT Procedure Only Urology, [facility] [address] [place] [address] Roberto Edwards MD [address] [place] [address] 04/23/2025 10:40 AM EDT Telemedicine Neurology [address] [place] [address] Nan Miller MD [address] [place], [place] [address] 04/29/2025 8:00 AM EDT Office Visit Pulmonary Medicine, [facility] [address] [place] [address] Luigi Bass MD [address] [place] [id number] 05/25/2025 9:00 AM EDT Office Visit [facility] [address] [place] [address] Rema Carpenter CRNP [address] [place] [address] 06/08/2025 3:30 PM EDT Procedure Only Urology, [facility] [address] [place] [address] Roberto Edwards MD [address] [place] [address] 06/17/2025 2:20 PM EDT Office Visit Nephrology, [facility] 200 [facility] [place] [address] Reece Cross MD 200 [facility] [place] [address] 11/23/2025 9:40 AM EDT Office Visit [facility] [address] [place] [address] Henrik Campbell DO [address] [place] [address] Pending Results Name Type Priority Associated Diagnoses Date /Time TSH WITH FREE T4 IF INDICATED Lab STAT Urothelial carcinoma of kidney, right (HCC) Encounter for long-term (current) use of medications 12/07/2024 8:52 AM EDT Scheduled Procedures Name Priority Associated [...] Additional history exists CKD PHOS USE SMARTSET 32282 08/03/2025 08/03/2024, 1 09/20/2023 HbA1c 11/23/2025 11/23/2024, 03/0 10/2024, 05/04/2024, Additional history exists CKD HGB USE SMARTSET 69014 12/07/202512/07, 12/07/2024, 11/23/2024, Additional history exists Colonoscopy [...] this encounter Medical Devices Implanted Type Area Sleeve Tailor Device Identifier Shelf Expiration Date Model / Serial / Lot Lens Intraoc 19.5 - [id number] - [id number] Implanted:Qty : 1 on 12/07/2021 by Eulogio Barrios MD at OR [facility] Left: Eye BAUSCH 07/25/2026 [id number] / [id number] / [id number] Lens Intraoc 19.5 - [id number] - [id number] Implanted:Qty : 1 on 12/19/2021 by Eulogio Barrios MD at OR [facility] Right: Eye BAUSCH 07/25/2026 [id number] / [id number] / [id number] Port Implant W8f Poly Cath - [id number] Implanted:Qty : 1 on 01/08/2024 by Austin Ervin MD at OR [facility] Right: Chest CR BARD : PERIPHERAL VASCULAR [id number] 01/23/2025 [id number] / / [id number] documented as of this encounter Procedures Procedure Name Priority Date/Time Associated Diagnosis Comments DIFFERENTIAL, AUTOMATED STAT 12/07/2024 8:52 AM EDT Urothelial carcinoma of kidney, right (HCC) COMPREHENSIVE METABOLIC PANEL STAT 12/07/2024 8:52 AM EDT Urothelial carcinoma of kidney, right (HCC) CBC STAT 12/07/2024 8:52 AM EDT Urothelial carcinoma of kidney, right (HCC) CBC STAT 12/07/2024 8:52 AM EDT Urothelial carcinoma of kidney, right (HCC) DIFFERENTIAL, TECHNOLOGIST REVIEW Routine 12/07/2024 8:52 AM EDT Urothelial carcinoma of kidney, right (HCC) documented in this encounter Results * (ABNORMAL) DIFFERENTIAL, TECHNOLOGIST REVIEW (12/07/2024 8:52 AM EDT) WBC 8.85 4.00 - 10.80 K/uL 12/07/2024 9:29 AM EDT LABORATORY [place] [facility]02 Neutrophils % 67.0 40.0 - 75.0 % 12/07/2024 9:29 AM EDT [facility] 56-02 Lymphocytes % 16.0(L) 18.0 - 42.0 % 12/07/2024 9:29 AM EDT LAB[facility]ATORY [place] [facility]02 Monocytes % 12.0(H) 1.0 - 11.0 % 12/07/2024 9:29 AM EDT [facility] 56-02 Eosinophils % 4.0 0.0 - 6.0 % 12/07/2024 9:29 AM EDT [facility] 56-02 Basophils % 1.0 0.0 - 2.0 % 12/07/2024 9:29 AM EDT [facility] 56-02 Absolute Neutrophils 5.93 1.80 - 7.70 K/uL 12/07/2024 9:29 AM EDT [facility] 56-02 Absolute Lymphocytes 1.42 1.00 - 4.80 K/uL 12/07/2024 9:29 AM EDT [facility] 56-02 Absolute Monocytes 1.06 0.00 - 1.10 K/uL 12/07/2024 9:29 AM EDT [facility] 56-02 Absolute Eosinophils 0.35 0.00 - 0.70 K/uL 12/07/2024 9:29 AM EDT [facility] 56-02 Absolute Basophils 0.09 0.00 - 0.20 K/uL 12/07/2024 9:29 AM EDT [facility] 56-02 nRBCs 12/07/2024 9:29 AM EDT [facility] 56-02 Blood Venous blood specimen / Unknown Venipuncture / Unknown 12/07/2024 8:52 AM EDT 12/07/2024 8:52 AM EDT Chandler Winter MD LAB BLOOD ORDERABLES Fin al Result [facility] 56 [address] [place] [address] * DIFFERENTIAL, AUTOMATED (12/07/2024 8:52 AM EDT) Blood Venous blood specimen / Unknown Venipuncture / Unknown 12/07/2024 8:52 AM EDT 12/07/2024 8:52 AM EDT Chandler Winter MD LAB BLOOD ORDERABLES Fin al Result [facility] 56- [address] [place] [address] * CBC (12/07/2024 8:52 AM EDT) Pathologist [facility] WBC 8.85 4.00 - 10.80 K/uL 12/07/2024 9:29 AM EDT [facility] 56- RBC 4.43 4.50 - 5.25 M/uL 12/07/2024 9:29 AM EDT [facility] 56 HGB 14.1 14.0 - 16.8 g/dL 12/07/2024 9:29 AM EDT [facility] 56 HCT 42.6 40.0 - 48.4 % 12/07/2024 9:29 AM EDT [facility] 56 MCV 96.2 82.0 - 99.5 fL 12/07/2024 9:29 AM EDT [facility] 56 MCH 31.8 27.0 - 34.0 pg 12/07/2024 9:29 AM EDT [facility] 56 MCHC 33.1 32.0 - 36.0 g/dL 12/07/2024 9:29 AM EDT [facility] 56 RDW 13.0 11.5 - 15.5 % 12/07/2024 9:29 AM EDT [facility] 56 PLT 247 140 - 400 K/uL 12/07/2024 9:29 AM EDT [facility] 56 MPV 9.2 6.6 - 11.1 fL 12/07/2024 9:29 AM EDT [facility] 56 Blood Venous blood specimen / Unknown Venipuncture / Unknown 12/07/2024 8:52 AM EDT 12/07/2024 8:52 AM EDT Chandler Winter MD LAB BLOOD ORDERABLES Fin al Result [facility] 56- [address] [place] [address] * (ABNORMAL) COMPREHENSIVE METABOLIC PANEL (12/07/2024 8:52 AM EDT) [facility] BUN 20 6 - 20 mg/dL 12/07/2024 9:30 AM [facility] 56 CREATININE 1.7(H) 0.6 - 1.2 mg/dL 12/07/2024 9:30 AM [facility] 56 EGFR 40(L) >=60 mL/min 12/07/2024 9:30 AM [facility] 56 Comment:eGFR is calculated b ased on the CKD-EPI 2020 equation. SODIUM 141 135 - 146 mmol/L 12/07/2024 9:30 AM [facility] 56 POTASSIUM 4.4 3.5 - 5.1 mmol/L 12/07/2024 9:30 AM [facility] 56 CHLORIDE 110(H) 98 - 107 mmol/L 12/07/2024 9:30 AM [facility] 56 CO2 18(L) 22 - 32 mmol/L 12/07/2024 9:[address] ANION GAP 13 7 - 15 mmol/L 12/07/2024 9:[address] GLUCOSE 116 70 - 120 mg/dL 12/07/2024 9:30 AM [facility] 56 Albumin 4.2 3.8 - 5.0 g/dL 12/07/2024 9:30 AM [facility] 56 AST 30 10 - 50 U/L 12/07/2024 9:30 AM [facility] 56 Alkaline Phosphatase 45 35 - 130 U/L 12/07/2024 9:30 AM [facility] 56 Bilirubin, Total 0.4 <=1.2 mg/dL 12/07/2024 9:30 AM [facility] 56 CALCIUM 9.4 8.4 - 10.2 mg/dL 12/07/2024 9:30 AM [facility] 56- Protein 7.4 6.0 - 8.3 g/dL 12/07/2024 9:30 AM [facility] 56 ALT 25 10 - 50 U/L 12/07/2024 9:30 AM [facility] 56 Blood Venous blood specimen / Unknown Venipuncture / Unknown 12/07/2024 8:52 AM EDT 12/07/2024 8:52 AM EDT Chandler Winter MD LAB BLOOD ORDERABLES Fin al Result [facility]ATORY [place] [facility] [place] [address] documented in this encounter Visit Diagnoses Diagnosis Urothelial carcinoma of kidney, right (HCC) Encounter for long-term (current) use of medications Encounter for long-term (current) use of other medications documented in this encounter Advance Directives Documents on File Type Date Recorded Patient Clin Tech Expl anation Advance Directives and Living Will [...] Agents on File Name Relationship [facility] Roma Gutiérrez Spouse Health Care Agen t (per Health Care Power of Cleaning Manager document) Care Teams Reimbursement Spec Relationship Specialty Start Date End Date Henrik Campbell DO [address] [place] [address] PCP - General Family Medicine 06/02/18 documented as of this encounter
--- OUTSIDE RECORDS SUMMARY | 2025-01-05 06:46 | External Medical Summary | Summary of Care ---
Author Name Unknown Organization [facility] Address [address] [place] [address] Phone [phone] Care Team Providers Care Textile Conversion Manager Name Role Phone Ross Campbellbrian Brandgabbi Primary Care Provider Reason for Visit * Reason Onset Date Comments Advice 11/19/2024 Encounter Details Date Type Department Care Team (Late st Contact Info) Description 11/19/2024 Telephone Urology Woody Serrano [address] [place] [address] [place] [address] Roberto Edwards MD [address] [place] [address] Advice Allergies Active Allergy Reactions Criticality Noted [...] Budesonide 32 MCG/ACT Nasal Suspension Administer 1 [place] into nostril in the morning. Active Rimegepant [...] and asks to be called back at [phone] * Telephone Encounter - Radha Sanchez LPN [...] HM * Telephone Encounter - Nilda Cerrato paver operator - 11/19/2024 10:35 AM EDT Incoming call fro patient's stating that Josiah was supposed to be prescribed an antibiotic. She is stating that the pharmacy did not receive a prescription. Please review, reach out to patient and advise if appropriate. Thank you, Nilda Cerrato Monument Stonecutter I [facility] ([facility]) 11/19/2024,10:37 AM documented in this encounter Plan of Treatment Upcoming Encounters Date Type Department Care Team (Late st Contact Info) Description 2024 1:30 PM EDT PulmDiagnostic Pulmonary Function Lab, [facility] [address] [place] [address] West, [address] [place] [address] 12/14/2024 8:45 AM EDT Imaging Radiology [facility] [address] [place] [address] 12/21/2024 9:00 AM EDT Laboratory [facility] [address] [place] [address] Cheri, Lab Scenery [address] [place], [place] [address] 12/21/2024 9:30 AM EDT Office Visit Hematology/Oncology Scenery [place] [address] [place], [place] [address] Renea Easley CRNP [address] [facility] [place] [id number] 12/21/2024 10:00 AM EDT Hem/Onc Treatment Hematology/Oncology Treatment, [place] [address] [place], [place] [address] Cheri, Chair 4 Hem Onc Scenery [address] [place], [place] [address] 02/03/2025 1:30 PM EDT Telemedicine Psychiatry Ivy Squires [address] [place] [address] Princess Kwon MD [address] [place] [facility] [place] [address] 03/15/2025 3:00 PM EDT Procedure Only Urology, [facility] [address] [place] [address] Roberto Edwards MD [address] [place] [id number] 04/23/2025 10:40 AM EDT Telemedicine Neurology Ivy [address] [place] [address] Nan Miller MD [address] [place] [facility] [place] [address] 04/29/2025 8:00 AM EDT Office Visit Pulmonary Medicine, [facility] [address] [place] [address] Luigi Bass MD [address] [place] [address] 05/25/2025 9:00 AM EDT Office Visit [facility] [address] [place] [address] Rema Carpenter CRNP [address] [place] [address] 06/08/2025 3:30 PM EDT Procedure Only Urology, [facility] [address] [place] [address] Roberto Edwards MD [address] [place] [id number] 06/17/2025 2:20 PM EDT Office Visit Nephrology, [facility] 200 [facility] [place], [place] [address] Reece Cross MD [address] [place] [address] 11/23/2025 9:40 AM EDT Office Visit [facility] [address] [place] [address] Henrik Campbell DO [address] [place] [address] Scheduled Procedures Name Priority Associated Diagnoses Date/Ti [...] Additional history exists CKD PHOS USE SMARTSET 29070 08/03/2025 08/03/2024, 1 09/20/2023 HbA1c 11/23/2025 11/23/2024, 03/0 10/2024, 05/04/2024, Additional history exists CKD HGB USE SMARTSET 24123 12/07/202512/07, 12/07/2024, 11/23/2024, Additional history exists Colonoscopy [...] this encounter Medical Devices Implanted Type Area Medical Office Manager Device Identifier Shelf Expiration Date Model / Serial / Lot Lens Intraoc 19.5 - [id number] - [id number] Implanted:Qty : 1 on 12/07/2021 by Eulogio Barrios MD at OR [facility] Left: Eye BAUSC 07/25/2026 [id number] / [id number] / [id number] Lens Intraoc 19.5 - [id number] - [id number] Implanted:Qty : 1 on 12/19/2021 by Eulogio Barrios MD at OR [facility] Right: Eye BAUSCH 07/25/2026 [id number] / [id number] / [id number] Port Implant W8f Poly Cath - [id number] Implanted:Qty : 1 on 01/08/2024 by Austin Erivn MD at OR [facility] Right: Chest CR BARD : PERIPHERAL VASCULAR [id number] 01/23/2025 [id number] / / [id number] documented as of this encounter Results * CULTURE, URINE, QUANTITATIVE (11/23/2024 8:34 AM EDT) Culture Growth No significant growth 11/24/2024 10:20 AM EDT LAB[facility]ATORY [facility] Urine Urine specimen obtained by clean catch procedure / Unknown Non-blood Collection / Unknown 11/23/2024 8:34 AM EDT 11/23/2024 8:34 AM EDT Roberto Edwards MD LAB MICRO - GENERAL YAYO BUNCH Final Result [facility] [address] [place] [address] documented in this encounter Visit Diagnoses Diagnosis Urothelial carcinoma of kidney, 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) Elevated prostate specific antigen (PSA) Disorder of kidney and ureter, unspecified Hematuria, gross Gross hematuria documented in this encounter Advance Directives Documents on File Type Date Recorded Patient Photography And Prints Curator Expl anation Advance Directives and Living Will [...] Agents on File Name Relationship Healthcare Agent [facility] Communication Roma Gutiérrez Spouse Health Care Agen t (per Health Care Power of Patient Transporter document) Care Teams Textile Conversion Manager Relationship Specialty Start Date End Date Henrik Campbell DO [address] [place] [address] PCP - General Family Medicine 06/02/18 documented as of this encounter
--- OUTSIDE RECORDS SUMMARY | 2025-01-05 06:46 | External Medical Summary | Summary of Care ---
Author Name Unknown Organization [facility] Address [address] [place] [address] Phone [phone] Care Team Providers Care Licensed Clinical Social Worker Name Role Phone Henrik Campbell DO Primary Care Provider Reason for Visit * Reason Comments Outpatient Testing Encounter Details Date Type Department Care Team (Late st Contact Info) Description 12/07/2024 9:00 AM EDT Laboratory Laboratory [facility] Cheri [place] [address] [place] [address] [place], Lab Scenery [address] [place] [address] Urothelial carcinoma of kidney, right (HCC); Encounter [...] Budesonide 32 MCG/ACT Nasal Suspension Administer 1 [place] into nostril in the morning. Active Rimegepant [...] 1:30 PM EDT PulmDiagnostic Pulmonary Function Lab, [facility] [address] [place] [address] West, Pft [address] [place] [address] 12/14/2024 8:45 AM EDT Imaging Radiology [facility] 1st [facility] [address] [place] [address] 12/21/2024 9:00 AM EDT Laboratory Laboratory [facility] [address] [place] [address] [place], Lab Scenery [address] [place] [address] 12/21/2024 9:30 AM EDT Office Visit Hematology/Oncology Scenery [facility] [address] [place] [address] Renea Easley CRNP 400 [facility] [place] [address] 12/21/2024 10:00 AM EDT Hem/Onc Treatment Hematology/Oncology Treatment, [place] [address] [place] [address] Cheri, Chair 4 Hem Onc Scenery 200 [facility] [place], [place] [address] 02/03/2025 1:30 PM EDT Telemedicine Psychiatry [place] [address] [place] [address] Princess Kwon MD [address] [place] [address] 03/15/2025 3:00 PM EDT Procedure Only Urology, [facility] [address] [place] [address] Roberto Edwards MD [address] [place] [address] 04/23/2025 10:40 AM EDT Telemedicine Neurology [address] [place] [address] Nan Miller MD [address] [place], [place] [address] 04/29/2025 8:00 AM EDT Office Visit Pulmonary Medicine, [facility] [address] [place] [address] Luigi Bass MD [address] [place] [place] [id number] 05/25/2025 9:00 AM EDT Office Visit [facility] [address] [place] [address] Rema Carpenter CRNP [address] [place] [address] 06/08/2025 3:30 PM EDT Procedure Only Urology, [facility] [address] [place] [address] Roberto Edwards MD [address] [place] [address] 06/17/2025 2:20 PM EDT Office Visit Nephrology, [facility] 200 [facility] [place] [address] Reece Cross MD 200 [facility] [place] [address] 11/23/2025 9:40 AM EDT Office Visit [facility] [address] [place] [address] Henrik Campbell DO [address] [place] [address] Pending Results Name Type Priority Associated Diagnoses [...] Additional history exists CKD PHOS USE SMARTSET 65125 08/03/2025 08/03/2024, 1 09/20/2023 HbA1c 11/23/2025 11/23/2024, 03/0 10/2024, 05/04/2024, Additional history exists CKD HGB USE SMARTSET 57538 12/07/202512/07, 12/07/2024, 11/23/2024, Additional history exists Colonoscopy [...] this encounter Medical Devices Implanted Type Area Pneumatic Tube Fitter Device Identifier Shelf Expiration Date Model / Serial / Lot Lens Intraoc 19.5 - [id number] - [id number] Implanted:Qty : 1 on 12/07/2021 by Eulogio Barrios MD at OR [facility] Left: Eye BAUSCH 07/25/2026 [id number] / [id number] / [id number] Lens Intraoc 19.5 - [id number] - [id number] Implanted:Qty : 1 on 12/19/2021 by uElogio Barrios MD at OR [facility] Right: Eye BAUSCH 07/25/2026 [id number] / [id number] / [id number] Port Implant W8f Poly Cath - [id number] Implanted:Qty : 1 on 01/08/2024 by Austin Ervin MD at OR [facility] Right: Chest CR BARD : PERIPHERAL VASCULAR [id number] 01/23/2025 [id number] / / [id number] documented as of this encounter Procedures Procedure [...] 10.80 K/uL 12/07/2024 9:29 AM EDT [facility] [place] 56-02 Neutrophils % 67.0 40.0 - 75.0 % 12/07/2024 9:29 AM EDT [facility] 56-02 Lymphocytes % 16.0(L) 18.0 - 42.0 % 12/07/2024 9:29 AM EDT [facility] [place] 56-02 Monocytes % 12.0(H) 1.0 - 11.0 % 12/07/2024 9:29 AM EDT [facility] 56-02 Eosinophils % 4.0 0.0 - 6.0 % 12/07/2024 9:29 AM EDT [facility] 56-02 Basophils % 1.0 0.0 - 2.0 % 12/07/2024 9:29 AM EDT [facility] 56-02 Absolute Neutrophils 5.93 1.80 - 7.70 K/uL 12/07/2024 9:29 AM EDT [facility] 56-02 Absolute Lymphocytes 1.42 1.00 - 4.80 K/uL 12/07/2024 9:29 AM EDT [facility] 56-02 Absolute Monocytes 1.06 0.00 - 1.10 K/uL 12/07/2024 9:29 AM EDT [facility] 56-02 Absolute Eosinophils 0.35 0.00 - 0.70 K/uL 12/07/2024 9:29 AM EDT [facility] 56-02 Absolute Basophils 0.09 0.00 - 0.20 K/uL 12/07/2024 9:29 AM EDT [facility] 56-02 nRBCs 12/07/2024 9:29 AM EDT [facility] 56-02 Blood Venous blood specimen / Unknown Venipuncture / Unknown 12/07/2024 8:52 AM EDT 12/07/2024 8:52 AM EDT Chandler Winter MD LAB BLOOD ORDERABLES Fin al Result [facility] 56 [address] [place] [address] * DIFFERENTIAL, AUTOMATED (12/07/2024 8:52 AM EDT) Blood Venous blood specimen / Unknown Venipuncture / Unknown 12/07/2024 8:52 AM EDT 12/07/2024 8:52 AM EDT Chandler Winter MD LAB BLOOD ORDERABLES Fin al Result [facility] 56- [address] [place] [address] * CBC (12/07/2024 8:52 AM EDT) Pathologist [facility] WBC 8.85 4.00 - 10.80 K/uL 12/07/2024 9:29 AM EDT [facility] 56- RBC 4.43 4.50 - 5.25 M/uL 12/07/2024 9:29 AM EDT [facility] 56 HGB 14.1 14.0 - 16.8 g/dL 12/07/2024 9:29 AM EDT [facility] 56 HCT 42.6 40.0 - 48.4 % 12/07/2024 9:29 AM EDT [facility] 56 MCV 96.2 82.0 - 99.5 fL 12/07/2024 9:29 AM EDT [facility] 56 MCH 31.8 27.0 - 34.0 pg 12/07/2024 9:29 AM EDT [facility] 56 MCHC 33.1 32.0 - 36.0 g/dL 12/07/2024 9:29 AM EDT [facility] 56 RDW 13.0 11.5 - 15.5 % 12/07/2024 9:29 AM EDT [facility] 56 PLT 247 140 - 400 K/uL 12/07/2024 9:29 AM EDT [facility] 56 MPV 9.2 6.6 - 11.1 fL 12/07/2024 9:29 AM EDT [facility] 56 Blood Venous blood specimen / Unknown Venipuncture / Unknown 12/07/2024 8:52 AM EDT 12/07/2024 8:52 AM EDT Chandler Winter MD LAB BLOOD ORDERABLES Fin al Result [facility] 56- [address] [place] [address] * (ABNORMAL) COMPREHENSIVE METABOLIC PANEL (12/07/2024 8:52 AM EDT) [facility] BUN 20 6 - 20 mg/dL 12/07/2024 9:30 AM [facility] 56 CREATININE 1.7(H) 0.6 - 1.2 mg/dL 12/07/2024 9:30 AM [facility] 56 EGFR 40(L) >=60 mL/min 12/07/2024 9:30 AM [facility] 56 Comment:eGFR is calculated b ased on the CKD-EPI 2020 equation. SODIUM 141 135 - 146 mmol/L 12/07/2024 9:30 AM [facility] 56 POTASSIUM 4.4 3.5 - 5.1 mmol/L 12/07/2024 9:30 AM [facility] 56 CHLORIDE 110(H) 98 - 107 mmol/L 12/07/2024 9:30 AM [facility] 56 CO2 18(L) 22 - 32 mmol/L 12/07/2024 9:[address] ANION GAP 13 7 - 15 mmol/L 12/07/2024 9:[address] GLUCOSE 116 70 - 120 mg/dL 12/07/2024 9:30 AM [facility] 56 Albumin 4.2 3.8 - 5.0 g/dL 12/07/2024 9:30 AM [facility] 56 AST 30 10 - 50 U/L 12/07/2024 9:30 AM [facility] 56 Alkaline Phosphatase 45 35 - 130 U/L 12/07/2024 9:30 AM [facility] 56 Bilirubin, Total 0.4 <=1.2 mg/dL 12/07/2024 9:30 AM [facility] 56 CALCIUM 9.4 8.4 - 10.2 mg/dL 12/07/2024 9:30 AM [facility] 56- Protein 7.4 6.0 - 8.3 g/dL 12/07/2024 9:30 AM [facility] 56 ALT 25 10 - 50 U/L 12/07/2024 9:30 AM [facility] 56 Blood Venous blood specimen / Unknown Venipuncture / Unknown 12/07/2024 8:52 AM EDT 12/07/2024 8:52 AM EDT Chandler Winter MD LAB BLOOD ORDERABLES Fin al Result [facility] [place] 56-[address] [place] [address] documented in this encounter Visit Diagnoses Diagnosis Urothelial carcinoma of kidney, right (HCC) Encounter for long-term (current) use of medications Encounter for long-term (current) use of other medications documented in this encounter Advance Directives Documents on File Type Date Recorded Patient Preparation Supervisor Expl anation Advance Directives and Living [...] on File Name Relationship [facility] Roma Gutiérrez Spouse Health Care Agen t (per Health Care Power of Dinkey Engine Mechanic document) Care Teams Licensed Clinical Social Worker Relationship Specialty Start Date End Date Henrik Campbell DO [address] [place] [address] PCP - General Family Medicine 06/02/18 documented as of this encounter
--- OUTSIDE RECORDS SUMMARY | 2025-01-05 06:46 | External Medical Summary | Summary of Care ---
Author Name Unknown Organization [facility] Address [address] [place] [address] Phone [phone] Care Team Providers Care Family Law Legal Assistant Name Role Phone Henrik Campbell DO Primary Care Provider Reason for Visit * Reason Comments Outpatient Testing Encounter Details Date Type Department Care Team (Late st Contact Info) Description 12/07/2024 9:00 AM EDT Laboratory Laboratory [facility] Cheri [place] [address] [place] [address] [place], Lab Scenery [address] [place] [address] Urothelial carcinoma of kidney, right (HCC); Encounter [...] Budesonide 32 MCG/ACT Nasal Suspension Administer 1 [place] into nostril in the morning. Active Rimegepant [...] 1:30 PM EDT PulmDiagnostic Pulmonary Function Lab, [facility] [address] [place] [address] West, [address] [place] [address] 12/14/2024 8:45 AM EDT Imaging Radiology [facility] 1st [facility] [address] [place] [address] 12/21/2024 9:00 AM EDT Laboratory Laboratory [facility] [address] [place] [address] [place], Lab Scenery [address] [place] [address] 12/21/2024 9:30 AM EDT Office Visit Hematology/Oncology Scenery [facility] [address] [place] [address] Renea Easley CRNP 400 [facility] [place] [address] 12/21/2024 10:00 AM EDT Hem/Onc Treatment Hematology/Oncology Treatment, [place] [address] [place] [address] Cheri, Chair 4 Hem Onc Scenery 200 [facility] [place], [place] [address] 02/03/2025 1:30 PM EDT Telemedicine Psychiatry [place] [address] [place] [address] Princess Kwon MD [address] [place] [address] 03/15/2025 3:00 PM EDT Procedure Only Urology, [facility] [address] [place] [address] Roberto Edwards MD [address] [place] [address] 04/23/2025 10:40 AM EDT Telemedicine Neurology [address] [place] [address] Nan Miller MD [address] [place], [place] [address] 04/29/2025 8:00 AM EDT Office Visit Pulmonary Medicine, [facility] [address] [place] [address] Luigi Bass MD [address] [place] [address] 05/25/2025 9:00 AM EDT Office Visit [facility] [address] [place] [address] Rema Carpenter CRNP [address] [place] [address] 06/08/2025 3:30 PM EDT Procedure Only Urology, [facility] [address] [place] [address] Roberto Edwards MD [address] [place] [address] 06/17/2025 2:20 PM EDT Office Visit Nephrology, [facility] 200 [facility] [place] [address] Reece Cross MD 200 [facility] [place] [address] 11/23/2025 9:40 AM EDT Office Visit [facility] [address] [place] [address] Henrik Campbell DO [address] [place] [address] Pending Results Name Type Priority Associated Diagnoses [...] Additional history exists CKD PHOS USE SMARTSET 68137 08/03/2025 08/03/2024, 1 09/20/2023 HbA1c 11/23/2025 11/23/2024, 03/0 10/2024, 05/04/2024, Additional history exists CKD HGB USE SMARTSET 10905 12/07/202512/07, 12/07/2024, 11/23/2024, Additional history exists Colonoscopy [...] this encounter Medical Devices Implanted Type Area Hand Packer Device Identifier Shelf Expiration Date Model / Serial / Lot Lens Intraoc 19.5 - [id number] - [id number] Implanted:Qty : 1 on 12/07/2021 by Eulogio Barrios MD at OR [facility] Left: Eye BAUSCH 07/25/2026 [id number] / [id number] / [id number] Lens Intraoc 19.5 - [id number] - [id number] Implanted:Qty : 1 on 12/19/2021 by Eulogio Barrios MD at OR [facility] Right: Eye BAUSCH 07/25/2026 [id number] / [id number] / [id number] Port Implant W8f Poly Cath - [id number] Implanted:Qty : 1 on 01/08/2024 by Austin Ervin MD at OR [facility] Right: Chest CR BARD : PERIPHERAL VASCULAR [id number] 01/23/2025 [id number] / / [id number] documented as of this encounter Procedures Procedure [...] 10.80 K/uL 12/07/2024 9:29 AM EDT [facility] [place] 56-02 Neutrophils % 67.0 40.0 - 75.0 % 12/07/2024 9:29 AM EDT [facility] 56-02 Lymphocytes % 16.0(L) 18.0 - 42.0 % 12/07/2024 9:29 AM EDT [facility] [place] 56-02 Monocytes % 12.0(H) 1.0 - 11.0 % 12/07/2024 9:29 AM EDT [facility] 56-02 Eosinophils % 4.0 0.0 - 6.0 % 12/07/2024 9:29 AM EDT [facility] 56-02 Basophils % 1.0 0.0 - 2.0 % 12/07/2024 9:29 AM EDT [facility] 56-02 Absolute Neutrophils 5.93 1.80 - 7.70 K/uL 12/07/2024 9:29 AM EDT [facility] 56-02 Absolute Lymphocytes 1.42 1.00 - 4.80 K/uL 12/07/2024 9:29 AM EDT [facility] 56-02 Absolute Monocytes 1.06 0.00 - 1.10 K/uL 12/07/2024 9:29 AM EDT [facility] 56-02 Absolute Eosinophils 0.35 0.00 - 0.70 K/uL 12/07/2024 9:29 AM EDT [facility] 56-02 Absolute Basophils 0.09 0.00 - 0.20 K/uL 12/07/2024 9:29 AM EDT [facility] 56-02 nRBCs 12/07/2024 9:29 AM EDT [facility] 56-02 Blood Venous blood specimen / Unknown Venipuncture / Unknown 12/07/2024 8:52 AM EDT 12/07/2024 8:52 AM EDT Chandler Winter MD LAB BLOOD ORDERABLES Fin al Result [facility] 56 [address] [place] [address] * DIFFERENTIAL, AUTOMATED (12/07/2024 8:52 AM EDT) Blood Venous blood specimen / Unknown Venipuncture / Unknown 12/07/2024 8:52 AM EDT 12/07/2024 8:52 AM EDT Chandler Winter MD LAB BLOOD ORDERABLES Fin al Result [facility] 56- [address] [place] [address] * CBC (12/07/2024 8:52 AM EDT) Pathologist [facility] WBC 8.85 4.00 - 10.80 K/uL 12/07/2024 9:29 AM EDT [facility] 56- RBC 4.43 4.50 - 5.25 M/uL 12/07/2024 9:29 AM EDT [facility] 56 HGB 14.1 14.0 - 16.8 g/dL 12/07/2024 9:29 AM EDT [facility] 56 HCT 42.6 40.0 - 48.4 % 12/07/2024 9:29 AM EDT [facility] 56 MCV 96.2 82.0 - 99.5 fL 12/07/2024 9:29 AM EDT [facility] 56 MCH 31.8 27.0 - 34.0 pg 12/07/2024 9:29 AM EDT [facility] 56 MCHC 33.1 32.0 - 36.0 g/dL 12/07/2024 9:29 AM EDT [facility] 56 RDW 13.0 11.5 - 15.5 % 12/07/2024 9:29 AM EDT [facility] 56 PLT 247 140 - 400 K/uL 12/07/2024 9:29 AM EDT [facility] 56 MPV 9.2 6.6 - 11.1 fL 12/07/2024 9:29 AM EDT [facility] 56 Blood Venous blood specimen / Unknown Venipuncture / Unknown 12/07/2024 8:52 AM EDT 12/07/2024 8:52 AM EDT Chandler Winter MD LAB BLOOD ORDERABLES Fin al Result [facility] 56- [address] [place] [address] * (ABNORMAL) COMPREHENSIVE METABOLIC PANEL (12/07/2024 8:52 AM EDT) [facility] BUN 20 6 - 20 mg/dL 12/07/2024 9:30 AM [facility] 56 CREATININE 1.7(H) 0.6 - 1.2 mg/dL 12/07/2024 9:30 AM [facility] 56 EGFR 40(L) >=60 mL/min 12/07/2024 9:30 AM [facility] 56 Comment:eGFR is calculated b ased on the CKD-EPI 2020 equation. SODIUM 141 135 - 146 mmol/L 12/07/2024 9:30 AM [facility] 56 POTASSIUM 4.4 3.5 - 5.1 mmol/L 12/07/2024 9:30 AM [facility] 56 CHLORIDE 110(H) 98 - 107 mmol/L 12/07/2024 9:30 AM [facility] 56 CO2 18(L) 22 - 32 mmol/L 12/07/2024 9:[address] ANION GAP 13 7 - 15 mmol/L 12/07/2024 9:[address] GLUCOSE 116 70 - 120 mg/dL 12/07/2024 9:30 AM [facility] 56 Albumin 4.2 3.8 - 5.0 g/dL 12/07/2024 9:30 AM [facility] 56 AST 30 10 - 50 U/L 12/07/2024 9:30 AM [facility] 56 Alkaline Phosphatase 45 35 - 130 U/L 12/07/2024 9:30 AM [facility] 56 Bilirubin, Total 0.4 <=1.2 mg/dL 12/07/2024 9:30 AM [facility] 56 CALCIUM 9.4 8.4 - 10.2 mg/dL 12/07/2024 9:30 AM [facility] 56- Protein 7.4 6.0 - 8.3 g/dL 12/07/2024 9:30 AM [facility] 56 ALT 25 10 - 50 U/L 12/07/2024 9:30 AM [facility] 56 Blood Venous blood specimen / Unknown Venipuncture / Unknown 12/07/2024 8:52 AM EDT 12/07/2024 8:52 AM EDT Chandler Winter MD LAB BLOOD ORDERABLES Fin al Result [facility] [place] 56-[address] [place] [address] documented in this encounter Visit Diagnoses Diagnosis Urothelial carcinoma of kidney, right (HCC) Encounter for long-term (current) use of medications Encounter for long-term (current) use of other medications documented in this encounter Advance Directives Documents on File Type Date Recorded Patient Policy Writer Expl anation Advance Directives and Living Will [...] Agents on File Name Relationship Healthcare Agent [facility] Communication Roma Gutiérrez Spouse Health Care Agen t (per Health Care Power of Associate Trainer document) Care Teams Family Law Legal Assistant Relationship Specialty Start Date End Date Henrik Campbell DO [address] [place] [address] PCP - General Family Medicine 06/02/18 documented as of this encounter
--- OUTSIDE RECORDS SUMMARY | 2025-01-05 06:46 | External Medical Summary | Summary of Care ---
Author Name Unknown Organization [facility] Address [address] [place] [address] Phone [phone] Care Team Providers Care Prehemmer Name Role Phone Ross Campbellbrian Brandgabbi Primary Care Provider Reason for Visit * Reason Onset Date Comments Advice 11/19/2024 Encounter Details Date Type Department Care Team (Late st Contact Info) Description 11/19/2024 Telephone Urology Woody Serrano [address] [place] [address] [place] [address] Roberto Edwards MD [address] [place] [address] Advice Allergies Active Allergy Reactions Criticality Noted [...] Budesonide 32 MCG/ACT Nasal Suspension Administer 1 [place] into nostril in the morning. Active Rimegepant [...] and asks to be called back at [phone] * Telephone Encounter - Radha Sanchez LPN [...] HM * Telephone Encounter - Nilda Cerrato manager leasing - 11/19/2024 10:35 AM EDT Incoming call fro patient's stating that Josiah was supposed to be prescribed an antibiotic. She is stating that the pharmacy did not receive a prescription. Please review, reach out to patient and advise if appropriate. Thank you, Nilda Cerrato Carpet Cleaning Technician [facility] 11/19/2024,10:37 AM documented in this encounter Plan of Treatment Upcoming Encounters Date Type Department Care Team (Late st Contact Info) Description 2024 1:30 PM EDT PulmDiagnostic Pulmonary Function Lab, [facility] [address] [place] [address] West, Pft [address] [place] [address] 12/14/2024 8:45 AM EDT Imaging Radiology [facility] 1st [facility] [address] [place] [address] 12/21/2024 9:00 AM EDT Laboratory [facility] [place] [address] [place] [address] [place], Lab Scenery [address] [place], [place] [address] 12/21/2024 9:30 AM EDT Office Visit Hematology/Oncology Scenery [place] [address] [place], [place] [address] Renea Easley CRNP 400 [facility] [place] [address] 12/21/2024 10:00 AM EDT Hem/Onc Treatment Hematology/Oncology Treatment, [place] [address] [place], [place] [address] Cheri, Chair 4 Hem Onc Scenery [address] [place], [place] [address] 02/03/2025 1:30 PM EDT Telemedicine Psychiatry [place] [address] [place] [address] Princess Kwon MD [address] [place] [facility] [place] [address] 03/15/2025 3:00 PM EDT Procedure Only Urology, [facility] [address] [place] [address] Roberto Edwards MD [address] [place] [id number] 04/23/2025 10:40 AM EDT Telemedicine Neurology [address] [place] [address] Nan Miller MD [address] [place] [address] 04/29/2025 8:00 AM EDT Office Visit Pulmonary Medicine, [facility] [address] [place] [address] Luigi Bass MD [address] [place] [address] 05/25/2025 9:00 AM EDT Office Visit [facility] [address] [place] [address] Rema Carpenter CRNP [address] [place] [address] 06/08/2025 3:30 PM EDT Procedure Only Urology, [facility] [address] [place] [address] Roberto Edwards MD [address] [place] [id number] 06/17/2025 2:20 PM EDT Office Visit Nephrology, [facility] 200 [facility] [place], [place] [address] Reece Cross MD [address] [place] [address] 11/23/2025 9:40 AM EDT Office Visit [facility] [address] [place] [address] Henrik Campbell DO [address] [place] [address] Scheduled Procedures Name Priority Associated Diagnoses Date/Ti [...] Additional history exists CKD PHOS USE SMARTSET 52585 08/03/2025 08/03/2024, 1 09/20/2023 HbA1c 11/23/2025 11/23/2024, 03/0 10/2024, 05/04/2024, Additional history exists CKD HGB USE SMARTSET 25250 12/07/202512/07, 12/07/2024, 11/23/2024, Additional history exists Colonoscopy [...] this encounter Medical Devices Implanted Type Area Production Illustrator Device Identifier Shelf Expiration Date Model / Serial / Lot Lens Intraoc 19.5 - [id number] - [id number] Implanted:Qty : 1 on 12/07/2021 by Eulogio Barrios MD at OR [facility] Left: Eye BAUSC 07/25/2026 [id number] / [id number] / [id number] Lens Intraoc 19.5 - [id number] - [id number] Implanted:Qty : 1 on 12/19/2021 by Eulogio Barrios MD at OR [facility] Right: Eye BAUSCH 07/25/2026 [id number] / [id number] / [id number] Port Implant W8f Poly Cath - [id number] Implanted:Qty : 1 on 01/08/2024 by Austin Ervin MD at OR [facility] Right: Chest CR BARD : PERIPHERAL VASCULAR [id number] 01/23/2025 [id number] / / [id number] documented as of this encounter Results * CULTURE, URINE, QUANTITATIVE (11/23/2024 8:34 AM EDT) Culture Growth No significant growth 11/24/2024 10:20 AM EDT LABORATORY [facility] Urine Urine specimen obtained by clean catch procedure / Unknown Non-blood Collection / Unknown 11/23/2024 8:34 AM EDT 11/23/2024 8:34 AM EDT Roberto Edwards MD LAB MICRO - GENERAL YAYO BUNCH Final Result LABORATORY [facility] [address] [place] [address] documented in this encounter Visit Diagnoses Diagnosis Urothelial carcinoma of kidney, 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) Elevated prostate specific antigen (PSA) Disorder of kidney and ureter, unspecified Hematuria, gross Gross hematuria documented in this encounter Advance Directives Documents on File Type Date Recorded 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
--- OUTSIDE RECORDS SUMMARY | 2025-01-05 06:47 | External Medical Summary ---
Author Name Unknown Address Unknown Organization K09:[facility] [place] [address] Laboratory Report Ordering Provider Test Date Status JEAN PIERRE SON 12/07/2024 08:52:02 Final Observation Date Value Abnormality Reference (Units ) Status SYNC LEUKOCYTES IN BLOOD BY AUTOMATED COUNT 12/07/2024 08:52:02 8.85 4.00-10.80 (K/uL) Final Neutrophils/100 leukocytes in Blood by Manual count 12/07/2024 08:52:02 67.0 40.0-75.0 (%) Final Lymphocytes/100 leukocytes in Blood by Manual count 12/07/2024 08:52:02 16.0 Below low normal 18.0-42.0 (%) Final Monocytes/100 leukocytes in Blood by Manual count 12/07/2024 08:52:02 12.0 Above high normal 1.0-11.0 (%) Final Eosinophils/100 leukocytes in Blood by Manual count 12/07/2024 08:52:02 4.0 0.0-6.0 (%) Final Basophils/100 leukocytes in Blood by Manual count 12/07/2024 08:52:02 1.0 0.0-2.0 (%) Final Neutrophils [#/volume] in Blood by Manual count 12/07/2024 08:52:02 5.93 1.80-7.70 (K/uL) Final Lymphocytes [#/volume] in Blood by Manual count 12/07/2024 08:52:02 1.42 1.00-4.80 (K/uL) Final Monocytes [#/volume] in Blood by Manual count 12/07/2024 08:52:02 1.06 0.00-1.10 (K/uL) Final Eosinophils [#/volume] in Blood by Manual count 12/07/2024 08:52:02 0.35 0.00-0.70 (K/uL) Final Basophils [#/volume] in Blood by Manual count 12/07/2024 08:52:02 0.09 0.00-0.20 (K/uL) Final Nucleated erythrocytes/100 leukocytes [Ratio] in Blood by Automated count 12/07/2024 08:52:02 Final Performing Location [facility] [address] [place] [address]
--- OUTSIDE RECORDS SUMMARY | 2025-01-05 06:47 | External Medical Summary | Summary of Care ---
Author Name Unknown Organization [facility] Address [address] [place] [address] Phone [phone] Care Team Providers Care Protection Consultant Name Role Phone Henrik Campbell DO Primary Care Provider Reason for Visit * Reason Comments Chemotherapy opdivo * Episode Based Medications (Routine) - Authorized Specialty Diagnoses / Procedures Referred By Contac t Referred To Contact Diagnoses Urothelial carcinoma of kidney, right (HCC) Procedures AR INJECTION, NIVOLUMAB Chandler Winter MD 200 [facility] [place] [address] Phone: tel: fax: Hematology/Oncology Treatment, [address] [address] Phone: tel: fax: Referral ID Status Reason Start Date Expiration Date V isits Requested Visits Authorized [id number] Authorized 12/23/2023 08/25/2099 [id number] Encounter Details Date Type Department Care Team (Latest Contact Info) Description 11/23/2024 11:30 AM EDT Hem/Onc Treatment Hematology/Oncology Treatment, [address] [place] [address] Cheri, Chair 3 Hem Onc [address] [place] [address] Urothelial carcinoma of kidney, right (HCC)* Allergies Active Allergy Reactions Criticality Noted Date Comments Azelastine Unknown 02/01/2021 Onabotulinumtoxina Other (Please comment) High 01/20/2021 Swallowing difficulty after injection documented as of this encounter (statuses as of 11/23/2024) Medications VITAMIN B-12 100 MCG PO TABS [...] Budesonide 32 MCG/ACT Nasal Suspension Administer 1 [place] into nostril in the morning. Active Rimegepant [...] as of this encounter (statuses as of 11/23/2024) Active Problems Problem Noted Date Diagnosed Date [...] as of this encounter (statuses as of 11/23/2024) Resolved Problems Problem Noted Date Diagnosed Date [...] as of this encounter (statuses as of 11/23/2024) Immunizations Name Administration Dates Next Due COVID-19 mRNA, LNP-s, No Pre serve, 2-Dose Series (NanoAntibiotics) 07/17/2021,11/22/2020,10/26/2020 Pneumococcal Conjugate Vacc, 13 Valent (Prevnar) [...] No 07/09/2024 Are you (or your family) akrla eless or worried that you might be [...] Nursing Notes * Kenzie Nunez, EDYTA - 11/23/2024 3:05 PM EDT Infusion complete. Patient tolerated well. No complaints. Port needle flushed with 10 ml NSS, [...] stable condition. * Kenzie Nunez RN - 11/23/2024 11:57 AM EDT Chair 8, patient here for treatment following provider visit. Patient with no complaints. VAD accessed without difficulty, + blood return noted, flushed with 10 ml NSS and dressing applied. Chemotherapy/Immunotherapy agents: OPDIVO Consent for chemotherapy drug treatment complete, dated, and signed? yes, date - 12/23/23 Treatment lab parameters met? Yes Has treatment weight changed > than 10%? No Treatment preauthorized? Yes VITALS Filed Vitals: BP Readings from Last 2 Encounters: 11/23/24 [...] to release order and treat per provider Functional Status: Functional status at today's visit: [...] Care Team (Late st Contact Info) Description 12/03/2024 1:00 PM EDT Telemedicine Psychiatry Diogo Squires [address] [place] [phone] Princess Kwon MD [address] [facility] [place] [address] 12/07/2024 9:00 AM EDT Laboratory Laboratory [facility] [address] [place] [phone] Park, Lab Scenery 200 [facility] [place] [address] 12/07/2024 10:00 AM EDT Hem/Onc Treatment Hematology/Oncology Treatment, [place] [address] [place] [phone] Cheri, Chair 1 Hem Onc Scenery 200 [facility] [place] [address] 2024 1:30 PM EDT PulmDiagnostic Pulmonary Function Lab, [facility] [address] [place] [phone] West, Pft [address] [place] [address] 12/14/2024 8:45 AM EDT Imaging Radiology [facility] [address] [place] [phone] 12/21/2024 9:00 AM EDT Laboratory Laboratory [facility] [address] [place], [place] [address] Cheri, Lab Scenery [address] [place], [place] [address] 12/21/2024 9:30 AM EDT Office Visit Hematology/Oncology [facility] [address] [place] [phone] Renea Easley CRNP 400 [facility] [place] [id number] 12/21/2024 10:00 AM EDT Hem/Onc Treatment Hematology/Oncology Treatment, [place] [address] [place], [place] [address] Cheri, Chair 4 Hem Onc Scenery [address] [place], [place] [phone] 03/15/2025 3:00 PM EDT Procedure Only Urology, [facility] [address] [place] [phone] Roberto Edwards MD 27 [facility] [place] [address] 04/23/2025 10:40 AM EDT Telemedicine Neurology Di[address] [place] [phone] Nan Miller MD 100 [facility] [place] [address] 04/29/2025 8:00 AM EDT Office Visit Pulmonary Medicine, [facility] [address] [place] [phone] Luigi Bass MD [address] [place] [address] 05/25/2025 9:00 AM EDT Office Visit Family Practice [facility] [address] [place] [address] Rema Carpenter CRNP [address] [place] [address] 06/08/2025 3:30 PM EDT Procedure Only Urology, [facility] [address] [place] [phone] Roberto Edwards MD [address] [place] [address] 06/17/2025 2:20 PM EDT Office Visit Nephrology, [facility] 200 [facility] [place] [address] Reece Cross MD [address] [place] [address] 11/23/2025 9:40 AM EDT Office Visit [facility] [address] [place] [address] Henrik Campbell DO [address] [place] [address] Scheduled Procedures Name Priority Associated Diagnoses Date/Ti me ESOPHAGOGASTRODUODENOSCOPY ( EGD), FLEXIBLE, TRANSORAL, DIAGNOSTIC Recall Evans's esophagus with esophagitis Health Maintenance Due Date Last Done Comments Adult Wellness Visit 12/16/2019 12/15/2018 Depression Monitoring 12/22/2024 12/23/2023 Albumin/Creatinine Ratio 05/04/2025 024, 11/06/2023, 03/22/2023, Additional history exists COVID-19 Vaccine ( season) 2025 11/03/2024, 07/17/2021, 11/22/2020, Additional history exists GFR 05/25/2025 11/23/2024, 10/24, 10/26/2024, Additional history exists CKD PHOS USE SMARTSET 01080 08/03/2025 08/03/2024, 1 09/20/2023 CKD HGB USE SMARTSET 35908 11/23/202511/23, 11/23/2024, 11/09/2024, Additional history exists HbA1c 11/23/2025 11/23/2024, 0 10/2024, 05/04/2024, Additional history exists Colonoscopy 01/21/2027 01/22/2024, 2 [...] this encounter Medical Devices Implanted Type Area Clinical Application Specialist Device Identifier Shelf Expiration Date Model / Serial / Lot Lens Intraoc 19.5 - [id number] - [id number] Implanted:Qty : 1 on 12/07/2021 by Eulogio Barrios MD at OR [facility] Left: Eye [employer]USCH [employer] LOMB 07/25/2026 [id number] / [id number] / [id number] Lens Intraoc 19.5 - [id number] - [id number] Implanted:Qty : 1 on 12/19/2021 by SophieEulogio cardenas MD at OR [facility] Right: Eye BAUSCH & LOMB 07/25/2026 [id number] / [id number] / [id number] Port Implant W8f Poly Cath - [id number] Implanted:Qty : 1 on 01/08/2024 by Austin Ervin MD at OR [facility] Right: Chest CR BARD : PERIPHERAL VASCULAR [id number] 01/23/2025 [id number] / / [id number] documented as of this encounter Visit Diagnoses Diagnosis Urothelial carcinoma of kidney, right (HCC)- Primary documented in this encounter Administered Medications Inactive Administered Medications - up to 3 most recent administrations Medication Order MAR Action Action Date Dose Rate Site Nivolumab (Opdivo) 240 mg in NSS 100 mL infusion 240 mg, IV Piggyback, ONCE, 1 dose, On Sat11/23/24 at 1315, Administer over 30 Minutes, DO NOT SHAKE Use a sterile, non-pyrogenic, low protein binding in-line filter (0.2 micrometer-1.2 micrometer)Indications:Urot helial carcinoma of kidney, right (HCC) Start Infusion 11/23/2024 11:48 AM EDT 240 mg 258 mL/hr NSS infusion Intravenous, at 50 mL/hr, PRN, Starting on Sat11/23/24 at 1245, Until Sat11/23/24 at 1907, Maintenance lineIndications:Urothelial carcinoma of kidney, right (HCC) Start Infusion 11/23/2024 11:46 AM EDT 50 mL/hr sodium chloride 0.9 % flush/inj 20 mL 20 mL, IV Push, PRN IV Flush and Lock, Starting on Sat11/23/24 at 1142, Until Sat11/23/24 at 1907, Do not flush if lock, PICC, or central line not in place; IV infusing or unable to flush. For midlines and central lines. 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
--- OUTSIDE RECORDS SUMMARY | 2025-01-05 06:47 | External Medical Summary | Summary of Care ---
Author Name Unknown Organization [facility] Address [address] [place] [address] Phone [phone] Care Team Providers Care Signal Supervisor Name Role Phone Henrik Campbell DO Primary Care Provider Reason for Visit * Reason Comments Chemotherapy Opdivo * Episode Based Medications (Routine) - Authorized Specialty Diagnoses / Procedures Referred By Contac t Referred To Contact Diagnoses Urothelial carcinoma of kidney, right (HCC) Procedures OK INJECTION, NIVOLUMAB Chandler Winter MD 200 [facility] [place] [address] Phone: tel: fax: Hematology/Oncology Treatment, [address] [address] Phone: tel: fax: Referral ID Status Reason Start Date Expiration Date V isits Requested Visits Authorized [id number] Authorized 12/23/2023 08/25/2099 999 [id number] Encounter Details Date Type Department Care Team (Latest Contact Info) Description 10/26/2024 11:30 AM EST Hem/Onc Treatment Hematology/Oncolog y Treatment, [place] 200 [facility] [place] [address] Cheri, Chair 3 Hem On[address] [place] [address] Urothelial carcinoma of kidney, right (HCC)*; Encounter for antineoplastic immunotherapy Allergies Active Allergy Reactions Criticality Noted Date Comments Azelastine Unknown 02/01/2021 Onabotulinumtoxina Other (Please comment) High 01/20/2021 Swallowing difficulty after injection documented as of this encounter (statuses as of 12/05/2024) Medications VITAMIN B-12 100 MCG PO TABS [...] for Dizziness. 60 Tablet 1 022 Active Additional Information Patient not taking.Reported on 09/03/2024 Esomeprazole Magnesium 20 MG Oral Capsule Delayed Release (NexIUM) Take by mouth 1 Capsule daily before breakfast . 90 Capsule 3 022 Active Budesonide 32 MCG/ACT Nasal Suspension Administer 1 [place] into nostril in the morning. Active Rimegepant [...] needed for Nausea. 30 Tablet 024 Active Additional Information Patient not taking.Reported on 10/19/2024 Docusate Sodium 100 MG Oral Capsule (Colace) Take 1 Capsule by mouth in the morning and 1 Capsule before bedtime. 30 Capsule 1 024 Active Additional Information Patient taking differently:100 mg Oral BID (.AM/PM),As needed, Reported on 10/19/2024 Ondansetron 4 MG Oral Tablet Disintegrating (Zofran) Place 1 Tablet on tongue every 6 hours as needed for Nausea. 30 Tablet 1 024 Active Additional Information Patient not taking.Reported on 09/03/2024 Metaxalone 800 MG Oral Tablet (Skelaxin) TAKE [...] 23, 2024. 15 Tablet 3 025 Active Lidocaine-Priloca ine 2.5-2.5 % External Cream (Emla)Indications :Urothelial carcinoma of kidney, right (HCC) Apply topically to affected area as needed for Other (none). APPLY TO SKIN OVER MEDIPORT & COVER 1HR PRIOR TO ACCESSING. 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 TAKE ONE CAPSULE BY MOUTH IN THE MORNING 90 Capsule 025 2024 Discontinued(Yancy salas) Hospital, Clinic, or Other Facility Administered Medication [...] as of this encounter (statuses as of 12/05/2024) Active Problems Problem Noted Date Diagnosed Date [...] as of this encounter (statuses as of 12/05/2024) Resolved Problems Problem Noted Date Diagnosed Date [...] as of this encounter (statuses as of 12/05/2024) Immunizations Name Administration Dates Next Due COVID-19 mRNA, LNP-s, No Pre serve, 2-Dose Series ([employer]) 07/17/2021,11/22/2020,10/26/2020 Pneumococcal Conjugate Vacc, 13 Valent (Prevnar) [...] Assessment Author Yes 11/27/2023 2:35 PM EDT Kit, E miguel, RN documented as of this encounter Mental Status * Because of a physical, mental, or emotional condition, do you have serious difficulty concentrating, remembering, or making decisions? (5 years old or older) Answer Entry Date Author No 11/27/2023 2:35 PM Kenzie Harper, RN documented in this encounter Nursing Notes * Harini Goncalves, EDYTA - 10/26/2024 3:02 PM EST 1235 Pt tolerated Opdivo infusion without issue. Port flushed with 10ml NSS, blood return noted, locked with additional 10ml NSS. Port deaccessed, [place] needle removed intact. Goals: Patient will remain free from injury Possible barriers to meeting goals: ambulating with IV pole Stability of the patient: Moderately stable - low risk of patient condition declining or worsening Summary regarding today's goals: Patient remained free from injury Patient denies further needs at this time, ambulatory with walker from facility. In stable condition. * Harini Goncalves RN - 10/26/2024 11:39 AM EST Chair 2. Pt presents for Opdivo treatment. Doing well. Saw Renea Easley today - see OV note for details. Port accessed with #20G 3/" without difficulty. Positive blood return, flushed with 10 ml NSS. Chemotherapy/Immunotherapy agents: OPDIVO Consent for chemotherapy drug treatment complete, dated, and signed? yes, date - 12/23/23 Treatment lab parameters met? Yes Has treatment weight changed > than 10%? No Treatment preauthorized? Yes VITALS There were no vitals filed for this visit. BP Readings from Last 2 Encounters: 10/26/24 111/69 10/19/24 139/79 Pulse Readings from Last 2 Encounters: 10/26/24 77 10/19/24 69 Resp Readings from Last 2 Encounters: 10/19/24 18 10/12/24 16 SpO2 Readings from Last 2 Encounters: 10/26/24 94% 10/19/24 95% Temp Readings from Last 2 Encounters: 10/26/24 36.8 °C (98.2 °F) (Tympanic) 10/19/24 36.2 °C (97.2 °F) Urine protein: N/A Patient education completed for [...] Description 12/07/2024 9:00 AM EDT Laboratory Laboratory [facility] 200 [facility] [place] [phone] Park, Lab Scene 200 [facility] [place] [address] 12/07/2024 10:00 AM EDT Hem/Onc Treatment Hematology/Oncology Treatment, [place] [address] [place] [phone] Cheri, Chair 1 Hem Onc Scenery [address] [place] [address] 2024 1:30 PM EDT PulmDiagnostic Pulmonary Function Lab, [facility] [address] [place] [phone] West, Pft [address] [place] [address] 12/14/2024 8:45 AM EDT Imaging Radiology [facility] 1st [facility] [address] [place] [phone] 12/21/2024 9:00 AM EDT Laboratory Laboratory [facility] [place] [address] [place] [phone] Cheri, Lab [facility] 200 [facility] [place] [address] 12/21/2024 9:30 AM EDT Office Visit Hematology/Oncology [facility] [place] [address] [place] [phone] Renea Easley CRNP 400 [facility] [place] [id number] 12/21/2024 10:00 AM EDT Hem/Onc Treatment Hematology/Oncology Treatment, [place] [address] [place], [place] [address] Cheri, Chair 4 Hem Onc [facility] 200 [facility] [place], [place] [phone] 02/03/2025 1:30 PM EDT Telemedicine Psychiatry Diogo Squires [address] [place] [phone] Princess Kwon MD 100 [place] [address] 03/15/2025 3:00 PM EDT Procedure Only Urology, [facility] [address] [place] [phone] Roberto Edwards MD [address] [place] [address] 04/23/2025 10:40 AM EDT Telemedicine Neurology Diogo [address] [place], [place] [phone] Nan Miller MD [address] [place] [id number] 04/29/2025 8:00 AM EDT Office Visit Pulmonary Medicine, [facility] [place] [phone] Luigi Bass MD [address] [place] [address] 05/25/2025 9:00 AM EDT Office Visit [facility] [place] [address] Rema Carpenter CRNP 132 [facility] [place] [address] 06/08/2025 3:30 PM EDT Procedure Only Urology, [facility] [place] [phone] Roberto Edwards MD [address] [place] [address] 06/17/2025 2:20 PM EDT Office Visit Nephrology, [facility] 200 [facility] [place], [place] [address] Reece Cross MD [address] [place] [address] 11/23/2025 9:40 AM EDT Office Visit [facility] [place] [address] Henrik Campbell DO [address] [place] [address] Scheduled Procedures Name Priority Associated Diagnoses Date/Ti [...] Additional history exists CKD PHOS USE SMARTSET 64097 08/03/2025 08/03/2024, 1 09/20/2023 CKD HGB USE SMARTSET 43048 11/23/202511/23, 11/23/2024, 11/09/2024, Additional history exists HbA1c 11/23/2025 11/23/2024, 0310/2024, 05/04/2024, Additional history exists Colonoscopy 01/21/2027 01/22/2024, 12/25, [...] this encounter Medical Devices Implanted Type Area Metal Control Coordinator Device Identifier Shelf Expiration Date Model / Serial / Lot Lens Intraoc 19.5 - [id number] - [id number] Implanted:Qty : 1 on 12/07/2021 by Eulogio Barrios MD at OR [facility] Left: Eye BAUSCH 07/25/2026 [id number] / [id number] / [id number] Lens Intraoc 19.5 - [id number] - [id number] Implanted:Qty : 1 on 12/19/2021 by Eulogio Barrios MD at OR [facility] Right: Eye BAUSCH 07/25/2026 [id number] / [id number] / [id number] Port Implant W8f Poly Cath - [id number] Implanted:Qty : 1 on 01/08/2024 by Austin Ervin MD at OR [facility] Right: Chest CR BARD : PERIPHERAL VASCULAR [id number] 01/23/2025 [id number] / / [id number] documented as of this encounter Visit Diagnoses Diagnosis Urothelial carcinoma of kidney, right (HCC)- Primary Encounter for antineoplastic immunotherapy documented in this encounter Administered Medications Inactive Administered Medications - up to 3 most recent administrations Medication Order MAR Action Action Date Dose Rate Site Nivolumab (Opdivo) 240 mg in NSS 100 mL infusion 240 mg, IV Piggyback, ONCE, 1 dose, On Sat10/26/24 at 1315, Administer over 30 Minutes, DO NOT SHAKE Use a sterile, non-pyrogenic, low protein binding in-line filter (0.2 micrometer-1.2 micrometer)Indications:Urot helial carcinoma of kidney, right (HCC) Start Infusion 10/26/2024 11:47 AM EST 240 mg 258 mL/hr NSS infusion Intravenous, at 50 mL/hr, PRN, Starting on Sat10/26/24 at 1245, Until Sat10/26/24 at 1923, Maintenance lineIndications:Urothelial carcinoma of kidney, right (HCC) Start Infusion 10/26/2024 11:44 AM EST 50 mL/hr sodium chloride 0.9 % flush/inj 20 mL 20 mL, IV Push, PRN IV Flush and Lock, Starting on Sat10/26/24 at 1138, Until Sat10/26/24 at 1923, Do not flush if lock, PICC, or central line not in place; IV infusing or unable to flush. For midlines and central lines. For IV Flush and Lock, IVAD is flushed with a total of 20 mL Normal Saline, 10 mL of Normal Saline Flush with 10 mL of Normal Saline acting as IV LOCK.Indications:Urothelial carcinoma of kidney, right (HCC) Given 10/26/2024 12:29 PM EST 20 mL documented in this encounter Advance Directives Documents on File Type Date Recorded Patient Health Researcher Expl anation Advance Directives and Living Will [...] Agen t (per Health Care Power of Can Sealer document) Care Teams Signal Supervisor Relationship Specialty Start Date End Date Henrik Campbell DO [address] [place] [address] PCP - General Family Medicine 06/02/18 documented as of this encounter
--- OUTSIDE RECORDS SUMMARY | 2025-01-05 06:47 | External Medical Summary | Summary of Care ---
Author Name Unknown Organization [facility] Address [address] [place] [address] Phone [phone] Care Team Providers Care Mold Press Operator Name Role Phone Adrian Henrik Brandgabbi Primary Care Provider Encounter Details Date Type Department Care Team (Late st Contact Info) Description 12/03/2024 1:00 PM EDT Telemedicine Psychiatry [address] [place] [address] Princess Kwon MD [address] [place] [address] FAHAD (generalized anxiety disorder)*; Persistent depressive disorder; Essential tremor; Medication side effect; Sleep disturbance Allergies Active Allergy Reactions Criticality Noted Date Comments Azelastine Unknown 02/01/2021 Onabotulinumtoxina Other (Please comment) High 01/20/2021 Swallowing difficulty after injection documented as of this encounter (statuses as of 12/03/2024) Medications VITAMIN B-12 100 MCG PO TABS [...] Budesonide 32 MCG/ACT Nasal Suspension Administer 1 [place] into nostril in the morning. Active Rimegepant [...] as of this encounter (statuses as of 12/03/2024) Active Problems Problem Noted Date Diagnosed Date [...] as of this encounter (statuses as of 12/03/2024) Resolved Problems Problem Noted Date Diagnosed Date [...] as of this encounter (statuses as of 12/03/2024) Immunizations Name Administration Dates Next Due COVID-19 [...] Kenzie Pantoja RN documented in this encounter Patient Instructions * Patient Instructions* Princess Kwon MD - 12/03/2024 12:53 PM EDT Mirtazapine 15 mg alternating with half tablet of 15 mg on alternate nights Bupropion 50 mg bid Lorazepam 0.25 mg qhs Propranolol is prescribed by PCP for hypertension documented in this encounter Progress Notes * Princess Kwon MD - 12/03/2024 1:03 PM EDT OUTPATIENT PSYCHIATRY RETURN VISIT DIV[facility] Name: Josiah Gutiérrez : 1940 Patient location: HOME. I was not in a hospital or clinic location. After connecting through [employer], patient was verified with two unique identifiers. Patient (or authorized legal customer field representative) was then informed that this was a Telemedicine visit and being conducted confidentially over secure lines. Methods to assure confidentiality were taken. Patient acknowledged consent and understanding of privacy and security of the Telemedicine visit. The patient agreed to participate. CHIEF COMPLAINT: Follow-up for psychiatric medication management. Seen with INTERVAL HISTORY: Medication side effects: no Mood symptoms:not bad Suicidal thoughts: no Irritability:not bad Anxiety:under relative control Sleep:fine Josiah Gutiérrez reports PCP increased propranolol to help hypertention Josiah Gutiérrez denies any change in medical history or medications since last visit. Past Medical History: Diagnosis Date Allergic rhinitis [...] Budesonide 32 MCG/ACT Nasal Suspension Administer 1 [place] into nostril in the morning. Rimegepant Sulfate [...] solution 2.5 mg 2.5 mg Nebulizer PRN Current Outpatient Medications Medication Sig Dispense Refill [...] Budesonide 32 MCG/ACT Nasal Suspension Administer 1 [place] into nostril in the morning. Rimegepant Sulfate [...] solution 2.5 mg 2.5 mg Nebulizer PRN Medication Comments documented by Zoie Cox LPN on 03/21/2017 at 1359. Patient states no change to medication Zoie Cox LPN 03/21/17 RECENT LABS/IMAGING: Recent Results (from the past 12 weeks) COMPREHENSIVE METABOLIC PANEL Collection Time: 09/14/24 8:30 AM Result Value Ref Range BUN 20 6 - 20 mg/dL CREATININE 1.8 (H) 0.6 - 1.2 mg/dL EGFR 36 (L) >=60 mL/min SODIUM 142 135 - 146 mmol/L POTASSIUM 4.2 3.5 - 5.1 mmol/L CHLORIDE 109 (H) 98 - 107 mmol/L CO2 20 (L) 22 - 32 mmol/L ANION GAP 13 7 - 15 mmol/L GLUCOSE 128 (H) 70 - 120 mg/dL Albumin 4.2 3.8 - 5.0 g/dL AST 28 10 - 50 U/L Alkaline Phosphatase 39 35 - 130 U/L Bilirubin, Total 0.3 <=1.2 mg/dL CALCIUM 9.4 8.4 - 10.2 mg/dL Protein 7.3 6.0 - 8.3 g/dL ALT 18 10 - 50 U/L TSH WITH FREE T4 IF INDICATED Collection Time: 09/14/24 8:30 AM Result Value Ref Range TSH 5.03 (H) 0.27 - 4.20 uIU/mL CBC Collection Time: 09/14/24 8:30 AM Result Value Ref Range WBC 9.74 4.00 - 10.80 K/uL RBC 4.00 4.50 - 5.25 M/uL HGB 13.0 (L) 14.0 - 16.8 g/dL HCT 38.8 (L) 40.0 - 48.4 % MCV 97.0 82.0 - 99.5 fL MCH 32.5 27.0 - 34.0 pg MCHC 33.5 32.0 - 36.0 g/dL RDW 13.6 11.5 - 15.5 % PLT 225 140 - 400 K/uL MPV 9.0 6.6 - 11.1 fL DIFFERENTIAL, AUTOMATED Collection Time: 09/14/24 8:30 AM Result Value Ref Range WBC 9.74 4.00 - 10.80 K/uL Neutrophils % 75.0 40.0 - 75.0 % Lymphocytes % 11.8 (L) 18.0 - 42.0 % Monocytes % 9.7 1.0 - 11.0 % Eosinophils % 2.8 0.0 - 6.0 % Basophils % 0.7 0.0 - 2.0 % Absolute Neutrophils 7.31 1.80 - 7.70 K/uL Absolute Lymphocytes 1.15 1.00 - 4.80 K/ul Absolute Monocytes 0.94 0.00 - 1.10 K/uL Absolute Eosinophils 0.27 0.00 - 0.70 K/uL Absolute Basophils 0.07 0.00 - 0.20 K/uL T4, FREE Collection Time: 09/14/24 8:30 AM Result Value Ref Range T4, Free 1.0 0.9 - 1.7 ng/dL TSH WITH FREE T4 IF INDICATED Collection Time: 09/28/24 9:42 AM Result Value Ref Range TSH 4.40 (H) 0.27 - 4.20 uIU/mL T4, FREE Collection Time: 09/28/24 9:42 AM Result Value Ref Range T4, Free 1.0 0.9 - 1.7 ng/dL COMPREHENSIVE METABOLIC PANEL Collection Time: 09/28/24 9:43 AM Result Value Ref Range BUN 20 6 - 20 mg/dL CREATININE 1.8 (H) 0.6 - 1.2 mg/dL EGFR 36 (L) >=60 mL/min SODIUM 140 135 - 146 mmol/L POTASSIUM 4.5 3.5 - 5.1 mmol/L CHLORIDE 110 (H) 98 - 107 mmol/L CO2 19 (L) 22 - 32 mmol/L ANION GAP 11 7 - 15 mmol/L GLUCOSE 122 (H) 70 - 120 mg/dL Albumin 4.2 3.8 - 5.0 g/dL AST 26 10 - 50 U/L Alkaline Phosphatase 38 35 - 130 U/L Bilirubin, Total 0.3 <=1.2 mg/dL CALCIUM 9.4 8.4 - 10.2 mg/dL Protein 7.1 6.0 - 8.3 g/dL ALT 22 10 - 50 U/L CBC Collection Time: 09/28/24 9:43 AM Result Value Ref Range WBC 8.39 4.00 - 10.80 K/uL RBC 3.99 4.50 - 5.25 M/uL HGB 13.0 (L) 14.0 - 16.8 g/dL HCT 38.7 (L) 40.0 - 48.4 % MCV 97.0 82.0 - 99.5 fL MCH 32.6 27.0 - 34.0 pg MCHC 33.6 32.0 - 36.0 g/dL RDW 13.2 11.5 - 15.5 % PLT 227 140 - 400 K/uL MPV 9.0 6.6 - 11.1 fL DIFFERENTIAL, AUTOMATED Collection Time: 09/28/24 9:43 AM Result Value Ref Range WBC 8.39 4.00 - 10.80 K/uL Neutrophils % 73.4 40.0 - 75.0 % Lymphocytes % 12.8 (L) 18.0 - 42.0 % Monocytes % 10.3 1.0 - 11.0 % Eosinophils % 2.9 0.0 - 6.0 % Basophils % 0.6 0.0 - 2.0 % Absolute Neutrophils 6.17 1.80 - 7.70 K/uL Absolute Lymphocytes 1.07 1.00 - 4.80 K/ul Absolute Monocytes 0.86 0.00 - 1.10 K/uL Absolute Eosinophils 0.24 0.00 - 0.70 K/uL Absolute Basophils 0.05 0.00 - 0.20 K/uL COMPREHENSIVE METABOLIC PANEL Collection Time: 10/12/24 10:36 AM Result Value Ref Range BUN 20 6 - 20 mg/dL CREATININE 1.6 (H) 0.6 - 1.2 mg/dL EGFR 41 (L) >=60 mL/min SODIUM 141 135 - 146 mmol/L POTASSIUM 4.2 3.5 - 5.1 mmol/L CHLORIDE 109 (H) 98 - 107 mmol/L CO2 19 (L) 22 - 32 mmol/L ANION GAP 13 7 - 15 mmol/L GLUCOSE 152 (H) 70 - 120 mg/dL Albumin 4.2 3.8 - 5.0 g/dL AST 27 10 - 50 U/L Alkaline Phosphatase 41 35 - 130 U/L Bilirubin, Total 0.3 <=1.2 mg/dL CALCIUM 9.0 8.4 - 10.2 mg/dL Protein 7.2 6.0 - 8.3 g/dL ALT 23 10 - 50 U/L TSH WITH FREE T4 IF INDICATED Collection Time: 10/12/24 10:36 AM Result Value Ref Range TSH 4.57 (H) 0.27 - 4.20 uIU/mL CBC Collection Time: 10/12/24 10:36 AM Result Value Ref Range WBC 8.53 4.00 - 10.80 K/uL RBC 4.09 4.50 - 5.25 M/uL HGB 13.2 (L) 14.0 - 16.8 g/dL HCT 39.9 (L) 40.0 - 48.4 % MCV 97.6 82.0 - 99.5 fL MCH 32.3 27.0 - 34.0 pg MCHC 33.1 32.0 - 36.0 g/dL RDW 12.8 11.5 - 15.5 % PLT 224 140 - 400 K/uL MPV 9.3 6.6 - 11.1 fL DIFFERENTIAL, AUTOMATED Collection Time: 10/12/24 10:36 AM Result Value Ref Range WBC 8.53 4.00 - 10.80 K/uL Neutrophils % 75.7 (H) 40.0 - 75.0 % Lymphocytes % 14.0 (L) 18.0 - 42.0 % Monocytes % 7.7 1.0 - 11.0 % Eosinophils % 2.1 0.0 - 6.0 % Basophils % 0.5 0.0 - 2.0 % Absolute Neutrophils 6.46 1.80 - 7.70 K/uL Absolute Lymphocytes 1.19 1.00 - 4.80 K/ul Absolute Monocytes 0.66 0.00 - 1.10 K/uL Absolute Eosinophils 0.18 0.00 - 0.70 K/uL Absolute Basophils 0.04 0.00 - 0.20 K/uL DIFFERENTIAL, TECHNOLOGIST REVIEW Collection Time: 10/12/24 10:36 AM Result Value Ref Range nRBCs T4, FREE Collection Time: 10/12/24 10:36 AM Result Value Ref Range T4, Free 1.0 0.9 - 1.7 ng/dL TSH WITH FREE T4 IF INDICATED Collection Time: 10/26/24 10:29 AM Result Value Ref Range TSH 4.50 (H) 0.27 - 4.20 uIU/mL T4, FREE Collection Time: 10/26/24 10:29 AM Result Value Ref Range T4, Free 1.0 0.9 - 1.7 ng/dL HEMOGLOBIN A1C Collection Time: 10/26/24 10:31 AM Result Value Ref Range Hemoglobin A1C 5.7 (H) 4.0 - 5.6 % Estimated Average Glucose 117 <126 mg/dL COMPREHENSIVE METABOLIC PANEL Collection Time: 10/26/24 10:32 AM Result Value Ref Range BUN 20 6 - 20 mg/dL CREATININE 1.8 (H) 0.6 - 1.2 mg/dL EGFR 36 (L) >=60 mL/min SODIUM 139 135 - 146 mmol/L POTASSIUM 4.6 3.5 - 5.1 mmol/L CHLORIDE 107 98 - 107 mmol/L CO2 21 (L) 22 - 32 mmol/L ANION GAP 11 7 - 15 mmol/L GLUCOSE 121 (H) 70 - 120 mg/dL Albumin 4.3 3.8 - 5.0 g/dL AST 31 10 - 50 U/L Alkaline Phosphatase 43 35 - 130 U/L Bilirubin, Total 0.3 <=1.2 mg/dL CALCIUM 9.3 8.4 - 10.2 mg/dL Protein 7.4 6.0 - 8.3 g/dL ALT 28 10 - 50 U/L CBC Collection Time: 10/26/24 10:32 AM Result Value Ref Range WBC 9.63 4.00 - 10.80 K/uL RBC 4.29 4.50 - 5.25 M/uL HGB 13.9 (L) 14.0 - 16.8 g/dL HCT 41.4 40.0 - 48.4 % MCV 96.5 82.0 - 99.5 fL MCH 32.4 27.0 - 34.0 pg MCHC 33.6 32.0 - 36.0 g/dL RDW 12.8 11.5 - 15.5 % PLT 243 140 - 400 K/uL MPV 9.2 6.6 - 11.1 fL DIFFERENTIAL, TECHNOLOGIST REVIEW Collection Time: 10/26/24 10:32 AM Result Value Ref Range WBC 9.63 4.00 - 10.80 K/uL Neutrophils % 76.0 (H) 40.0 - 75.0 % Lymphocytes % 13.0 (L) 18.0 - 42.0 % Monocytes % 11.0 1.0 - 11.0 % Absolute Neutrophils 7.32 1.80 - 7.70 K/uL Absolute Lymphocytes 1.25 1.00 - 4.80 K/uL Absolute Monocytes 1.06 0.00 - 1.10 K/uL nRBCs COMPREHENSIVE METABOLIC PANEL Collection Time: 11/09/24 7:22 AM Result Value Ref Range BUN 21 (H) 6 - 20 mg/dL CREATININE 1.7 (H) 0.6 - 1.2 mg/dL EGFR 40 (L) >=60 mL/min SODIUM 141 135 - 146 mmol/L POTASSIUM 4.3 3.5 - 5.1 mmol/L CHLORIDE 111 (H) 98 - 107 mmol/L CO2 19 (L) 22 - 32 mmol/L ANION GAP 11 7 - 15 mmol/L GLUCOSE 111 70 - 120 mg/dL Albumin 4.3 3.8 - 5.0 g/dL AST 32 10 - 50 U/L Alkaline Phosphatase 42 35 - 130 U/L Bilirubin, Total 0.3 <=1.2 mg/dL CALCIUM 9.1 8.4 - 10.2 mg/dL Protein 7.1 6.0 - 8.3 g/dL ALT 32 10 - 50 U/L TSH WITH FREE T4 IF INDICATED Collection Time: 11/09/24 7:22 AM Result Value Ref Range TSH 5.62 (H) 0.27 - 4.20 uIU/mL CBC Collection Time: 11/09/24 7:22 AM Result Value Ref Range WBC 8.43 4.00 - 10.80 K/uL RBC 4.16 4.50 - 5.25 M/uL HGB 13.5 (L) 14.0 - 16.8 g/dL HCT 40.1 40.0 - 48.4 % MCV 96.4 82.0 - 99.5 fL MCH 32.5 27.0 - 34.0 pg MCHC 33.7 32.0 - 36.0 g/dL RDW 12.7 11.5 - 15.5 % PLT 231 140 - 400 K/uL MPV 9.0 6.6 - 11.1 fL DIFFERENTIAL, AUTOMATED Collection Time: 11/09/24 7:22 AM Result Value Ref Range WBC 8.43 4.00 - 10.80 K/uL Neutrophils % 65.9 40.0 - 75.0 % Lymphocytes % 19.8 18.0 - 42.0 % Monocytes % 10.1 1.0 - 11.0 % Eosinophils % 3.8 0.0 - 6.0 % Basophils % 0.4 0.0 - 2.0 % Absolute Neutrophils 5.56 1.80 - 7.70 K/uL Absolute Lymphocytes 1.67 1.00 - 4.80 K/ul Absolute Monocytes 0.85 0.00 - 1.10 K/uL Absolute Eosinophils 0.32 0.00 - 0.70 K/uL Absolute Basophils 0.03 0.00 - 0.20 K/uL DIFFERENTIAL, TECHNOLOGIST REVIEW Collection Time: 11/09/24 7:22 AM Result Value Ref Range nRBCs Reactive Lymphocytes Present (A) None Seen T4, FREE Collection Time: 11/09/24 7:22 AM Result Value Ref Range T4, Free 1.0 0.9 - 1.7 ng/dL COMPREHENSIVE METABOLIC PANEL Collection Time: 11/23/24 8:28 AM Result Value Ref Range BUN 20 6 - 20 mg/dL CREATININE 1.7 (H) 0.6 - 1.2 mg/dL EGFR 40 (L) >=60 mL/min SODIUM 142 135 - 146 mmol/L POTASSIUM 4.4 3.5 - 5.1 mmol/L CHLORIDE 110 (H) 98 - 107 mmol/L CO2 20 (L) 22 - 32 mmol/L ANION GAP 12 7 - 15 mmol/L GLUCOSE 114 70 - 120 mg/dL Albumin 4.1 3.8 - 5.0 g/dL AST 22 10 - 50 U/L Alkaline Phosphatase 45 35 - 130 U/L Bilirubin, Total 0.4 <=1.2 mg/dL CALCIUM 9.3 8.4 - 10.2 mg/dL Protein 7.4 6.0 - 8.3 g/dL ALT 22 10 - 50 U/L TSH WITH FREE T4 IF INDICATED Collection Time: 11/23/24 8:28 AM Result Value Ref Range TSH 6.34 (H) 0.27 - 4.20 uIU/mL CBC Collection Time: 11/23/24 8:28 AM Result Value Ref Range WBC 10.37 4.00 - 10.80 K/uL RBC 4.26 4.50 - 5.25 M/uL HGB 13.7 (L) 14.0 - 16.8 g/dL HCT 41.1 40.0 - 48.4 % MCV 96.5 82.0 - 99.5 fL MCH 32.2 27.0 - 34.0 pg MCHC 33.3 32.0 - 36.0 g/dL RDW 12.5 11.5 - 15.5 % PLT 203 140 - 400 K/uL MPV 9.4 6.6 - 11.1 fL DIFFERENTIAL, AUTOMATED Collection Time: 11/23/24 8:28 AM Result Value Ref Range WBC 10.37 4.00 - 10.80 K/uL Neutrophils % 76.4 (H) 40.0 - 75.0 % Lymphocytes % 11.9 (L) 18.0 - 42.0 % Monocytes % 9.3 1.0 - 11.0 % Eosinophils % 2.0 0.0 - 6.0 % Basophils % 0.4 0.0 - 2.0 % Absolute Neutrophils 7.93 (H) 1.80 - 7.70 K/uL Absolute Lymphocytes 1.23 1.00 - 4.80 K/ul Absolute Monocytes 0.96 0.00 - 1.10 K/uL Absolute Eosinophils 0.21 0.00 - 0.70 K/uL Absolute Basophils 0.04 0.00 - 0.20 K/uL HEMOGLOBIN A1C Collection Time: 11/23/24 8:28 AM Result Value Ref Range Hemoglobin A1C 5.6 4.0 - 5.6 % Estimated Average Glucose 114 <126 mg/dL LIPID PANEL WITH DIRECT LDL IF TG IS HIGH Collection Time: 11/23/24 8:28 AM Result Value Ref Range Triglycerides 272 (H) <=174 mg/dL Cholesterol 157 <200 mg/dL HDL Cholesterol 40 >39 mg/dL Non-HDL Cholesterol 117 <=159 mg/dL LDL CHOLESTEROL (DIRECT MEASURE) Collection Time: 11/23/24 8:28 AM Result Value Ref Range LDL Cholesterol (Direct Measure) 87 <=129 mg/dL T4, FREE Collection Time: 11/23/24 8:28 AM Result Value Ref Range T4, Free 1.1 0.9 - 1.7 ng/dL CULTURE, URINE, QUANTITATIVE Collection Time: 11/23/24 8:34 AM Specimen: Urine, Clean Catch Result Value Ref Range Culture Growth No significant growth VITALS BP Readings from Last 4 Encounters: 11/23/24 149/83 11/23/24 160/92 11/09/24 128/71 10/26/24 111/69 Pulse Readings from Last 4 Encounters: 11/23/24 74 11/23/24 68 11/09/24 72 10/26/24 77 Wt Readings from Last 3 Encounters: 11/23/24 110.2 kg (243 lb) 11/23/24 110.8 kg (244 lb 4.8 oz) 11/09/24 112 kg (247 lb) There is no height or weight on [...] tardive dyskinesia or abnormal muscle movements. Mood: "ok" Affect: constricted, non-labile, Euthymic Thought Process: goal directed and logical Thought Content: Suicidal Ideation: None voiced. Homicidal Ideation: None voiced. Psychosis: No evidence of responding to internal stimuli Insight: good, based on recognition and understanding of mental illness and need for treatment ASSESSMENT AND TREATMENT PLAN: Anxiety symptoms are largely manageable. He wanted to further decrease dose of mirtazapine because of side effect of weght gain. Since he is on higher dose of propranolol that helps anxiety as well, would try slight lowering dose of mirtazapine. FAHAD (generalized anxiety disorder) (Primary) Persistent depressive disorder Essential tremor Medication side effect Sleep disturbance Follow Up: Return in about 2 months (around 02/02/2025). Data Reviewed today: labs, outpatient notes Medications - Patient Instructions Mirtazapine 15 mg alternating with half tablet of 15 mg on alternate nights Bupropion 50 mg bid Lorazepam 0.25 mg qhs Propranolol is prescribed by PCP for hypertension I spent a total of 18 minutes on the date of service in preparation, delivery, and documentation ofthe care provided to Josiah Gutiérrez. Princess Kwon MD Psychiatrist, [facility] 12/03/2024 documented in this encounter Plan of Treatment Upcoming Encounters Date Type Department Care Team (Late st Contact Info) Description 12/07/2024 9:00 AM EDT Laboratory Laboratory [facility] Cheri [place] [address] [place] [phone] Cheri, Lab Scenery [address] [place] [address] 12/07/2024 10:00 AM EDT Hem/Onc Treatment Hematology/Oncology Treatment, [place] [address] [place] [phone] Cheri, Chair 1 Hem Onc Scenery [address] [place] [address] 2024 1:30 PM EDT PulmDiagnostic Pulmonary Function Lab, [facility] [address] [place] [phone] [place], Pft [address] [place] [address] 12/14/2024 8:45 AM EDT Imaging Radiology [facility] 1st [facility] [address] [place] [phone] 12/21/2024 9:00 AM EDT Laboratory Laboratory [facility] Cheri [place] [address] [place] [phone] Cheri Lab Scenery [address] [place] [address] 12/21/2024 9:30 AM EDT Office Visit Hematology/Oncology [facility] [place] [address] [place] [address] Renea Easley CRNP [address] [facility] [place] [id number] 12/21/2024 10:00 AM EDT Hem/Onc Treatment Hematology/Oncology Treatment, [place] [address] [place], [place] [address] Cheri, Chair 4 Hem Onc Scenery 200 [facility] [place], [place] [id number] 02/03/2025 1:30 PM EDT Telemedicine Psychiatry [facility] [place] [address] [place] [phone] Princess Kwon MD [address] [place] [address] 03/15/2025 3:00 PM EDT Procedure Only Urology, [facility] [address] [place] [address] Roberto Edwards MD [address] [place] [address] 04/23/2025 10:40 AM EDT Telemedicine Neurology [address] [place] [phone] Nan Miller MD [address], [place] [id number] 04/29/2025 8:00 AM EDT Office Visit Pulmonary Medicine, [facility] [address] [place] [phone] Luigi Bass MD [address] [place] [place] [id number] 05/25/2025 9:00 AM EDT Office Visit [facility] [address] [place] [address] Rema Carpenter CRNP [address] [place] [address] 06/08/2025 3:30 PM EDT Procedure Only Urology, [facility] [address] [place] [address] Roberto Edwards MD [address] [place] [id number] 06/17/2025 2:20 PM EDT Office Visit Nephrology, [facility] 200 [facility] [place] [address] Reece Cross MD 200 [facility] [place] [address] 11/23/2025 9:40 AM EDT Office Visit [facility] [address] [place] [address] Henrik Campbell DO [address] [place] [address] Scheduled Procedures Name Priority Associated Diagnoses Date/Ti [...] Additional history exists CKD PHOS USE SMARTSET 42999 08/03/2025 08/03/2024, 1 09/20/2023 CKD HGB USE SMARTSET 90381 11/23/202511/23, 11/23/2024, 11/09/2024, Additional history exists HbA1c 11/23/2025 11/23/2024, 10/2024, 05/04/2024, Additional history exists Colonoscopy 01/21/2027 [...] this encounter Medical Devices Implanted Type Area Ammonia Refrigeration Worker Device Identifier Shelf Expiration Date Model / Serial / Lot Lens Intraoc 19.5 - [id number] - [id number] Implanted:Qty : 1 on 12/07/2021 by Eulogio Barrios MD at OR [facility] Left: Eye BAUSCH 07/25/2026 [id number] / [id number] / [id number] Lens Intraoc 19.5 - [id number] - [id number] Implanted:Qty : 1 on 12/19/2021 by Eulogio Barrios MD at OR [facility] Right: Eye BAUSCH 07/25/2026 [id number] / [id number] / [id number] Port Implant W8f Poly Cath - [id number] Implanted:Qty : 1 on 01/08/2024 by Austin Ervin MD at OR [facility] Right: Chest CR BARD : PERIPHERAL VASCULAR [id number] 01/23/2025 [id number] / / [id number] documented as of this encounter Visit Diagnoses Diagnosis FAHAD (generalized anxiety disorder)- Primary Generalized anxiety disorder Persistent depressive disorder Essential tremor Essential and other specified forms of tremor Medication side effect Unspecified adverse effect of unspecified drug, medicinal and biological substance Sleep disturbance Sleep disturbance, unspecified documented in this encounter Advance Directives Documents on File Type Date Recorded Patient Analysis Intern Expl anation Advance Directives and Living Will [...] Agen t (per Health Care Power of Police Captain Senior document) Care Teams Mold Press Operator Relationship Specialty Start Date End Date Henrik Campbell DO [address] [place] [address] PCP - General Family Medicine 06/02/18 documented as of this encounter
--- OUTSIDE RECORDS SUMMARY | 2025-01-05 06:47 | External Medical Summary | Summary of Care ---
Author Name Unknown Organization [facility] Address [address] [place] [address] Phone [phone] Care Team Providers Care Coffee Shop Attendant Name Role Phone Henrik Campbell DO Primary Care Provider Reason for Visit * Reason Comments Outpatient Testing Encounter Details Date Type Department Care Team (Late st Contact Info) Description 12/07/2024 9:00 AM EDT Laboratory Laboratory [facility] Cheri [place] [address] [place] [address] [place], Lab Scenery [address] [place] [address] Urothelial carcinoma of kidney, right (HCC); Encounter [...] Budesonide 32 MCG/ACT Nasal Suspension Administer 1 [place] into nostril in the morning. Active Rimegepant [...] PM EDT PulmDiagnostic Pulmonary Function Lab, [facility] [address] [place] [address] West, P[address] [place] [address] 12/14/2024 8:45 AM EDT Imaging Radiology [facility] 1st [facility] [address] [place] [address] 12/21/2024 9:00 AM EDT Laboratory Laboratory [facility] [address] [place] [address] [place]ri, Lab Scenery [address] [place] [address] 12/21/2024 9:30 AM EDT Office Visit Hematology/Oncology Scenery [facility] [address] [place] [address] Renea Easley CRNP [address] [facility] [place] [address] 12/21/2024 10:00 AM EDT Hem/Onc Treatment Hematology/Oncology Treatment, [place] [address] [place] [address] Cheri, Chair 4 Hem Onc Scenery 200 [facility] [place], [place] [address] 02/03/2025 1:30 PM EDT Telemedicine Psychiatry [place] [place] [address] [place] [address] Princess Kwon MD [address] [place] [address] 03/15/2025 3:00 PM EDT Procedure Only Urology, [facility] [address] [place] [address] Roberto Edwards MD [address] [place] [address] 04/23/2025 10:40 AM EDT Telemedicine Neurology [address] [place] [address] Nan Miller MD [address] [place], [place] [id number] 04/29/2025 8:00 AM EDT Office Visit Pulmonary Medicine, [facility] [address] [place] [address] Luigi Bass MD [address] [place] [id number] 05/25/2025 9:00 AM EDT Office Visit [facility] [address] [place] [address] Rema Carpenter CRNP [address] [place] [address] 06/08/2025 3:30 PM EDT Procedure Only Urology, [facility] [address] [place] [address] Roberto Edwards MD [address] [place] [address] 06/17/2025 2:20 PM EDT Office Visit Nephrology, [facility] 200 [facility] [place] [address] Reece Cross MD 200 [facility] [place] [address] 11/23/2025 9:40 AM EDT Office Visit [facility] [address] [place] [address] Henrik Campbell DO [address] [place] [address] Pending Results Name Type Priority Associated Diagnoses [...] Additional history exists CKD PHOS USE SMARTSET 73408 08/03/2025 08/03/2024, 1 09/20/2023 HbA1c 11/23/2025 11/23/2024, 03/0 10/2024, 05/04/2024, Additional history exists CKD HGB USE SMARTSET 20467 12/07/202512/07, 12/07/2024, 11/23/2024, Additional history exists Colonoscopy [...] this encounter Medical Devices Implanted Type Area Government Contracts Manager Device Identifier Shelf Expiration Date Model / Serial / Lot Lens Intraoc 19.5 - [id number] - [id number] Implanted:Qty : 1 on 12/07/2021 by Eulogio Barrios MD at OR [facility] Left: Eye BAUSCH 07/25/2026 [id number] / [id number] / [id number] Lens Intraoc 19.5 - [id number] - [id number] Implanted:Qty : 1 on 12/19/2021 by Eulogio Barrios MD at OR [facility] Right: Eye BAUSCH 07/25/2026 [id number] / [id number] / [id number] Port Implant W8f Poly Cath - [id number] Implanted:Qty : 1 on 01/08/2024 by Austin Ervin MD at OR [facility] Right: Chest CR BARD : PERIPHERAL VASCULAR [id number] 01/23/2025 [id number] / / [id number] documented as of this encounter Procedures Procedure [...] 10.80 K/uL 12/07/2024 9:29 AM EDT [facility] 56-02 Neutrophils % 67.0 40.0 - 75.0 % 12/07/2024 9:29 AM EDT [facility] 56-02 Lymphocytes % 16.0(L) 18.0 - 42.0 % 12/07/2024 9:29 AM EDT [facility] 56-02 Monocytes % 12.0(H) 1.0 - 11.0 % 12/07/2024 9:29 AM EDT [facility] 56-02 Eosinophils % 4.0 0.0 - 6.0 % 12/07/2024 9:29 AM EDT [facility] 56-02 Basophils % 1.0 0.0 - 2.0 % 12/07/2024 9:29 AM EDT [facility] 56-02 Absolute Neutrophils 5.93 1.80 - 7.70 K/uL 12/07/2024 9:29 AM EDT [facility] 56-02 Absolute Lymphocytes 1.42 1.00 - 4.80 K/uL 12/07/2024 9:29 AM EDT [facility] 56-02 Absolute Monocytes 1.06 0.00 - 1.10 K/uL 12/07/2024 9:29 AM EDT [facility] 56-02 Absolute Eosinophils 0.35 0.00 - 0.70 K/uL 12/07/2024 9:29 AM EDT [facility] 56-02 Absolute Basophils 0.09 0.00 - 0.20 K/uL 12/07/2024 9:29 AM EDT [facility] 56-02 nRBCs 12/07/2024 9:29 AM EDT [facility] 56-02 Blood Venous blood specimen / Unknown Venipuncture / Unknown 12/07/2024 8:52 AM EDT 12/07/2024 8:52 AM EDT Chandler Winter MD LAB BLOOD ORDERABLES Fin al Result [facility] 56 [address] [place] [address] * DIFFERENTIAL, AUTOMATED (12/07/2024 8:52 AM EDT) Blood Venous blood specimen / Unknown Venipuncture / Unknown 12/07/2024 8:52 AM EDT 12/07/2024 8:52 AM EDT Chandler Winter MD LAB BLOOD ORDERABLES Fin al Result [facility] 56- [address] [place] [address] * CBC (12/07/2024 8:52 AM EDT) Pathologist [facility] WBC 8.85 4.00 - 10.80 K/uL 12/07/2024 9:29 AM EDT [facility] 56- RBC 4.43 4.50 - 5.25 M/uL 12/07/2024 9:29 AM EDT [facility] 56 HGB 14.1 14.0 - 16.8 g/dL 12/07/2024 9:29 AM EDT [facility] 56 HCT 42.6 40.0 - 48.4 % 12/07/2024 9:29 AM EDT [facility] 56 MCV 96.2 82.0 - 99.5 fL 12/07/2024 9:29 AM EDT [facility] 56 MCH 31.8 27.0 - 34.0 pg 12/07/2024 9:29 AM EDT [facility] 56 MCHC 33.1 32.0 - 36.0 g/dL 12/07/2024 9:29 AM EDT [facility] 56 RDW 13.0 11.5 - 15.5 % 12/07/2024 9:29 AM EDT [facility] 56 PLT 247 140 - 400 K/uL 12/07/2024 9:29 AM EDT [facility] 56 MPV 9.2 6.6 - 11.1 fL 12/07/2024 9:29 AM EDT [facility] 56 Blood Venous blood specimen / Unknown Venipuncture / Unknown 12/07/2024 8:52 AM EDT 12/07/2024 8:52 AM EDT Chandler Winter MD LAB BLOOD ORDERABLES Fin al Result [facility] 56- [address] [place] [address] * (ABNORMAL) COMPREHENSIVE METABOLIC PANEL (12/07/2024 8:52 AM EDT) [facility] BUN 20 6 - 20 mg/dL 12/07/2024 9:30 AM [facility] 56 CREATININE 1.7(H) 0.6 - 1.2 mg/dL 12/07/2024 9:30 AM [facility] 56 EGFR 40(L) >=60 mL/min 12/07/2024 9:30 AM [facility] 56 Comment:eGFR is calculated b ased on the CKD-EPI 2020 equation. SODIUM 141 135 - 146 mmol/L 12/07/2024 9:30 AM [facility] 56 POTASSIUM 4.4 3.5 - 5.1 mmol/L 12/07/2024 9:30 AM [facility] 56 CHLORIDE 110(H) 98 - 107 mmol/L 12/07/2024 9:30 AM [facility] 56 CO2 18(L) 22 - 32 mmol/L 12/07/2024 9:[address] ANION GAP 13 7 - 15 mmol/L 12/07/2024 9:[address] GLUCOSE 116 70 - 120 mg/dL 12/07/2024 9:30 AM [facility] 56 Albumin 4.2 3.8 - 5.0 g/dL 12/07/2024 9:30 AM [facility] 56 AST 30 10 - 50 U/L 12/07/2024 9:30 AM [facility] 56 Alkaline Phosphatase 45 35 - 130 U/L 12/07/2024 9:30 AM [facility] 56 Bilirubin, Total 0.4 <=1.2 mg/dL 12/07/2024 9:30 AM [facility] 56 CALCIUM 9.4 8.4 - 10.2 mg/dL 12/07/2024 9:30 AM [facility] 56- Protein 7.4 6.0 - 8.3 g/dL 12/07/2024 9:30 AM [facility] 56 ALT 25 10 - 50 U/L 12/07/2024 9:30 AM [facility] 56 Blood Venous blood specimen / Unknown Venipuncture / Unknown 12/07/2024 8:52 AM EDT 12/07/2024 8:52 AM EDT Chandler Winter MD LAB BLOOD ORDERABLES Fin al Result [facility] 56-[address] [place] [address] documented in this encounter Visit Diagnoses Diagnosis Urothelial carcinoma of kidney, right (HCC) Encounter for long-term (current) use of medications Encounter for long-term (current) use of other medications documented in this encounter Advance Directives Documents on File Type Date Recorded Patient Chuck Boner Expl anation Advance Directives and Living Will [...] Agents on File Name Relationship [facility] Roma Gutiérrez Spouse Health Care Agen t (per Health Care Power of Sales Training Manager document) Care Teams Coffee Shop Attendant Relationship Specialty Start Date End Date Henrik Campbell DO [address] [place] [address] PCP - General Family Medicine 06/02/18 documented as of this encounter
--- OUTSIDE RECORDS SUMMARY | 2025-01-05 06:47 | External Medical Summary ---
Author Name Unknown Address Unknown Organization K01:[facility] [address] [place] [address] Laboratory Report Ordering Provider Test Date Status JEAN PIERRE SON 12/07/2024 08:52:02 Final Observation Date Value Abnormality Reference (Units ) Status T4, Free 12/07/2024 08:52:02 1.0 0.9-1.7 (n g/dL) Final Performing Location [facility] - [address] [place] [address]
--- OUTSIDE RECORDS SUMMARY | 2025-01-05 06:47 | External Medical Summary | Summary of Care ---
Author Name Unknown Organization [facility] Address [address] [place] [address] Phone [phone] Care Team Providers Care Embossing Toolsetter Name Role Phone Campbell Henrik Brandgabbi Primary Care Provider Encounter Details Date Type Department Care Team (Late st Contact Info) Description 12/02/2024 Orders Only Hematology/Oncology [facility] [address] [place] [address] Chandler Winter MD [address] [place] [address] Allergies Active Allergy Reactions Criticality Noted Date [...] Budesonide 32 MCG/ACT Nasal Suspension Administer 1 [place] into nostril in the morning. Active Rimegepant [...] mRNA, LNP-s, No Pre serve, 2-Dose Series (SuccessTSM) 07/17/2021,11/22/2020,10/26/2020 Pneumococcal Conjugate Vacc, 13 Valent (Prevnar) [...] No 07/09/2024 Does the household have a [facility] source of income? (Household - for [...] Telemedicine Psychiatry [address]ogo [address] [place] [address] Princess Kwon MD [address] [facility] [address] 12/07/2024 9:00 AM EDT Laboratory Laboratory [facility] Cheri [place] [address] [place] [phone] Cheri, Lab Scenery [address] [place] [address] 12/07/2024 10:00 AM EDT Hem/Onc Treatment Hematology/Oncology Treatment, [place] [address] [place] [address] Cheri, Chair 1 Hem Onc Scenery [address] [place] [address] 2024 1:30 PM EDT PulmDiagnostic Pulmonary Function Lab, [facility] [address] [place] [phone] West, Pft [address] [place] [address] 12/14/2024 8:45 AM EDT Imaging Radiology [facility] 1st [facility] [address] [place] [phone] 12/21/2024 9:00 AM EDT Laboratory Laboratory [facility] [address] [place] [address] Cheri, Lab [facility] [address] [place] [address] 12/21/2024 9:30 AM EDT Office Visit Hematology/Oncology [facility] [place] [address] [place] [phone] Renea Easley, ALEXANDRO 400 [facility] [place] DIOP [id number] 12/21/2024 10:00 AM EDT Hem/Onc Treatment Hematology/Oncology Treatment, [place] [address] [place] [address] Cheri, Chair 4 Hem Onc [facility] [address] [place] [address] 03/15/2025 3:00 PM EDT Procedure Only Urology, [facility] [address] [place] [phone] Roberto Edwards MD [address] [place] [address] 04/23/2025 10:40 AM EDT Telemedicine Neurology [address] [place] [address] Nan Miller MD [address] [facility] [place] [address] 04/29/2025 8:00 AM EDT Office Visit Pulmonary Medicine, [facility] [address] [place] [phone] Luigi Bass MD [address] [place] [place] [address] 05/25/2025 9:00 AM EDT Office Visit [facility] [place] [address] Rema Carpenter CRNP [facility] [place] [address] 06/08/2025 3:30 PM EDT Procedure Only Urology, [facility] [address] [facility] [place] [address] Roberto Edwards MD [address] [place] [id number] 06/17/2025 2:20 PM EDT Office Visit Nephrology, [facility] 200 [facility] [address] [place], [place] [address] Reece Cross MD 200 [facility] [address] [place] [address] 11/23/2025 9:40 AM EDT Office Visit [facility] [place] [address] Henrik Campbell DO [address] [place] [address] Scheduled Procedures Name Priority Associated Diagnoses Date/Ti [...] Additional history exists CKD PHOS USE SMARTSET 66259 08/03/2025 08/03/2024, 1 09/20/2023 CKD HGB USE SMARTSET 91233 11/23/202511/23, 11/23/2024, 11/09/2024, Additional history exists HbA1c [...] this encounter Medical Devices Implanted Type Area Catcher Plug Device Identifier Shelf Expiration Date Model / Serial / Lot Lens Intraoc 19.5 - [id number] - [id number] Implanted:Qty : 1 on 12/07/2021 by Euloigo Barrios MD at OR [facility] Left: Eye BAUSCH 07/25/2026 [id number] / [id number] / [id number] Lens Intraoc 19.5 - [id number] - [id number] Implanted:Qty : 1 on 12/19/2021 by Eulogio Barrios MD at OR [facility] Right: Eye BAUSCH 07/25/2026 [id number] / [id number] / [id number] Port Implant W8f Poly Cath - [id number] Implanted:Qty : 1 on 01/08/2024 by Austin Ervin MD at OR [facility] Right: Chest CR BARD : PERIPHERAL VASCULAR [id number] 01/23/2025 [id number] / / [id number] documented as of this encounter Advance Directives Documents on File Type Date Recorded 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
--- OUTSIDE RECORDS SUMMARY | 2025-01-05 06:47 | External Medical Summary | Summary of Care ---
Author Name Unknown Organization [facility] Address [address] [place] [address] Phone [phone] Care Team Providers Care Asian Art Curator Name Role Phone Henrik Campbell DO Primary Care Provider Reason for Visit * Reason Comments Chemotherapy C18/D1 - Opdivo * Episode Based Medications (Routine) - Authorized Specialty Diagnoses / Procedures Referred By Contac t Referred To Contact Diagnoses Urothelial carcinoma of kidney, right (HCC) Procedures [place] INJECTION, NIVOLUMAB Chandler Winter MD [address] [place] [address] [place] [address] Phone: tel: fax: Hematology/Oncology Treatment, [address] [address] Phone: tel: fax: Referral ID Status Reason Start Date Expiration Date V isits Requested Visits Authorized [id number] Authorized 12/23/2023 08/25/2099 [id number] Encounter Details Date Type Department Care Team (Latest Contact Info) Description 11/09/2024 8:45 AM EDT Hem/Onc Treatment Hematology/Oncolog y Treatment, [address] [place] [address] Cheri, Chair 2 Hem Onc [address] [place] [address] Urothelial carcinoma of kidney, right (HCC)*; Encounter for antineoplastic immunotherapy Allergies Active Allergy Reactions Criticality Noted Date Comments Azelastine Unknown 02/01/2021 Onabotulinumtoxina Other (Please comment) High 01/20/2021 Swallowing difficulty after injection documented as of this encounter (statuses as of 12/04/2024) Medications VITAMIN B-12 100 MCG PO TABS [...] Budesonide 32 MCG/ACT Nasal Suspension Administer 1 [place] into nostril in the morning. Active Rimegepant [...] as needed for Nausea. 30 Tablet 1 04/10/2 024 Active Additional Information Patient not taking.Reported on 09/03/2024 Metaxalone 800 MG Oral Tablet (Skelaxin) TAKE 1 TABLET BY MOUTH AT BEDTIME AND 1/2 TO 1 TABLET UP TO AN ADDITIONAL TWO TIMES DAILY NEEDED FOR NECK AND HEAD PAIN. 90 Tablet 11 Active Qulipta 10 MG Oral Tablet (Atogepant) Take by mouth. Act robert buPROPion HCl 100 MG Oral Tablet (Wellbutrin) Take 0.5 Tablets by mouth in the morning and 0.5 Tablets before bedtime. 30 Tablet 5 Active Mirtazapine 15 MG Oral Tablet (Remeron) [...] and 15 mL before bedtime. 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 90 Tablet 024 03/18/ 2025 Discontinued Tamsulosin HCl 0.4 MG Oral Capsule [...] as of this encounter (statuses as of 12/04/2024) Active Problems Problem Noted Date Diagnosed Date [...] as of this encounter (statuses as of 12/04/2024) Resolved Problems Problem Noted Date Diagnosed Date [...] as of this encounter (statuses as of 12/04/2024) Immunizations Name Administration Dates Next Due COVID-19 mRNA, LNP-s, No Pre serve, 2-Dose Series ([employer]) 07/17/2021,11/22/2020,10/26/2020 Pneumococcal Conjugate Vacc, 13 Valent (Prevnar) [...] Sign Reading Time Taken Comments Blood Pressure 128/71 11/09/2024 8:52 AM EDT Pulse 72 11/09/2024 8:52 AM EDT Temperature 36.2 °C (97.2 °F) 11/09/2024 8:52 AM ED T Respiratory Rate 18 11/09/2024 8:52 AM EDT Oxygen Saturation 92% 11/09/2024 8:52 AM EDT Inhaled Oxygen Concentration - - Weight 112 kg (247 lb) 11/09/2024 8:52 AM EDT Height - - Body Mass Index 36.48 09/03/2024 9:55 AM EST documented in this encounter Functional Status * Are you deaf or do you have serious difficulty hearing? Answer Date of Assessment Author No 11/27/2023 2:35 PM EDT Kenzie Pantoja, RN * Are you blind or do [...] documented in this encounter Nursing Notes * Jeanna Robles RN - 11/09/2024 10:36 AM EDT Goals: Patient will remain free from injury. Possible barriers to meeting goals: ambulating with IV pole, age, use of walker Stability of the patient: Moderately stable - low risk of patient condition declining or worsening Summary regarding today's goals: Met: pt remained free of harm today Patient tolerated treatment well without any acute issues or problems. Patient left facility in stable condition and denied any further needs. * Jeanna Robles RN - 11/09/2024 10:33 AM EDT Chemotherapy/Immunotherapy agents: OPDIVO Consent for chemotherapy drug treatment complete, dated, and signed? yes, date - 12/23/2023 Treatment lab parameters met? Yes Has treatment weight changed > than 10%? No Treatment preauthorized? Yes VITALS Filed Vitals: 11/09/24 0852 BP: 128/71 Pulse: 72 Resp: 18 Temp: 36.2 °C (97.2 °F) TempSrc: Tympanic SpO2: 92% Weight: 112 kg (247 lb) BP Readings from Last 2 Encounters: 11/09/24 128/71 10/26/24 111/69 Pulse Readings from Last 2 Encounters: 11/09/24 72 10/26/24 77 Resp Readings from Last 2 Encounters: 11/09/24 18 10/19/24 18 SpO2 Readings from Last 2 Encounters: 11/09/24 92% 10/26/24 94% Temp Readings from Last 2 Encounters: 11/09/24 36.2 °C (97.2 °F) (Tympanic) 10/26/24 36.8 °C (98.2 °F) (Tympanic) Urine protein: N/A Patient education [...] NEURO: denies symptoms CV/RESP: denies symptoms GI/: denies symptoms OTHER: itching:main complaint is itching at night before going to bed - RN educated he could take 25mg Benadryl before bed if it is bothersome or keeps him up and this should hopefully help with the itching- pt communicated understanding PAIN: 0 Safety and Risk for Injury Patient will remain free from injury. Ensure appropriate safety devices are available. Provide and maintain safe environment. * Jeanna Robles RN - 11/09/2024 9:02 AM EDT Chair 2. Patient here today for Opdivo treatment, awaiting CMP results since lab analyze has been down sincethis AM. Patient is feeling well today, accompanied by . Patient is comfortable and denies further needs. Awaiting labs results at this time. Safety and Risk for Injury Patient will remain free from injury. Ensure appropriate safety devices are available. Provide and maintain safe environment. Patient instructed on use of heat and [...] Description 12/07/2024 9:00 AM EDT Laboratory Laboratory [address] [place] [id number] Cheri, Lab [address] [place] [address] 12/07/2024 10:00 AM EDT Hem/Onc Treatment Hematology/Oncology Treatment, [address] [place] [phone] Cheri, Chair 1 Hem Onc [address] [place] [address] 2024 1:30 PM EDT PulmDiagnostic Pulmonary Function Lab, [facility] [address] [place] [phone] West, Pft [address] [place] [address] 12/14/2024 8:45 AM EDT Imaging Radiology [facility] 1st [facility] [address] [place] [address] 12/21/2024 9:00 AM EDT Laboratory Laboratory [facility] [place] [address] [place] [address] Hamida Alonzo [address] [facility] [place] [address] 12/21/2024 9:30 AM EDT Office Visit Hematology/Oncology [place]ery [place] [address] [place] [address] Renea Easley CRNP [address] [facility] [place] [id number] 12/21/2024 10:00 AM EDT Hem/Onc Treatment Hematology/Oncology Treatment, [place] [address] [place], [place] [address] Cheri, Chair 4 Hem Onc Scenery [address] [place] [address] 02/03/2025 1:30 PM EDT Telemedicine Psychiatry [place] [address] [place] [address] Princess Kwon MD [address] [place] [facility] [address] 03/15/2025 3:00 PM EDT Procedure Only Urology, [facility] [address] [place] [address] Roberto Edwards MD [address] [place] [id number] 04/23/2025 10:40 AM EDT Telemedicine Neurology [address] [place] [address] Nan Miller MD [address] [facility] [place] [address] 04/29/2025 8:00 AM EDT Office Visit Pulmonary Medicine, [facility] [address] [place] [address] Luigi Bass MD [address] [place] [address] 05/25/2025 9:00 AM EDT Office Visit [facility] [address] [place] [address] Rema Carpenter CRNP [address] [place] [address] 06/08/2025 3:30 PM EDT Procedure Only Urology, [facility] [address] [place] [address] Roberto Edwards MD [address] [place] [address] 06/17/2025 2:20 PM EDT Office Visit Nephrology, [facility] 200 [facility] [place], [place] [address] Reece Cross MD [address] [place] [address] 11/23/2025 9:40 AM EDT Office Visit [facility] [address] [place] [address] Henrik Campbell DO [address] [facility] [place] [address] Scheduled Procedures Name Priority Associated Diagnoses Date/Ti [...] Additional history exists CKD PHOS USE SMARTSET 42312 08/03/2025 08/03/2024, 1 09/20/2023 CKD HGB USE SMARTSET 28199 11/23/202511/23, 11/23/2024, 11/09/2024, Additional history exists HbA1c [...] this encounter Medical Devices Implanted Type Area Scrap Metal Burner Device Identifier Shelf Expiration Date Model / Serial / Lot Lens Intraoc 19.5 - [id number] - [id number] Implanted:Qty : 1 on 12/07/2021 by Eulogio Barrios MD at [facility] Left: Eye BAUSCH 07/25/2026 [id number] / [id number] / [id number] Lens Intraoc 19.5 - [id number] - [id number] Implanted:Qty : 1 on 12/19/2021 by Eulogio Barrios MD at [facility] Right: Eye BAUSCH 07/25/2026 [id number] / [id number] / [id number] Port Implant W8f Poly Cath - [id number] Implanted:Qty : 1 on 01/08/2024 by Austin Ervin MD at OR [facility] Right: Chest CR BARD : PERIPHERAL VASCULAR [id number] 01/23/2025 [id number] / / [id number] documented as of this encounter Visit Diagnoses Diagnosis Urothelial carcinoma of kidney, right (HCC)- Primary Encounter for antineoplastic immunotherapy documented in this encounter Administered Medications Inactive Administered Medications - up to 3 most recent administrations Medication Order MAR Action Action Date Dose Rate Site Nivolumab (Opdivo) 240 mg in NSS 100 mL infusion 240 mg, IV Piggyback, ONCE, 1 dose, On Sat11/09/24 at 1115, Administer over 30 Minutes, DO NOT SHAKE Use a sterile, non-pyrogenic, low protein binding in-line filter (0.2 micrometer-1.2 micrometer)Indications:Urot helial carcinoma of kidney, right (HCC) Start Infusion 11/09/2024 9:42 AM EDT 240 mg 258 mL/hr NSS infusion Intravenous, at 50 mL/hr, PRN, Starting on Sat11/09/24 at 1045, Until Sat11/09/24 at 1438, Maintenance lineIndications:Urothelial carcinoma of kidney, right (HCC) Start Infusion 11/09/2024 9:40 AM EDT 50 mL/hr sodium chloride 0.9 % flush/inj 20 mL 20 mL, IV Push, PRN IV Flush and Lock, Starting on Sat11/09/24 at 0939, Until Sat11/09/24 at 1438, Do not flush if lock, PICC, or central line not in place; IV infusing or unable to flush. For midlines and central lines. For IV Flush and Lock, IVAD is flushed with a total of 20 mL Normal Saline, 10 mL of Normal Saline Flush with 10 mL of Normal Saline acting as IV LOCK.Indications:Urothelial carcinoma of kidney, right (HCC) Given 11/09/2024 10:18 AM EDT 20 mL documented in this encounter Advance Directives Documents on File Type Date Recorded Patient Forming Yardage Control Operator Expl anation Advance Directives and Living [...] Agen t (per Health Care Power of Municipal Maintenance Worker document) Care Teams Asian Art Curator Relationship Specialty Start Date End Date Henrik Campbell DO [address] [address] PCP - General Family Medicine 06/02/18 documented as of this encounter
--- OUTSIDE RECORDS SUMMARY | 2025-01-05 06:47 | External Medical Summary ---
Author Name Unknown Address Unknown Organization K09:[facility] [address] [place] [address] Laboratory Report Ordering Provider Test Date Status JEAN PIERRE SON 12/07/2024 08:52:02 Final Observation Date Value Abnormality Reference (Units ) Status BUN 12/07/2024 08:52:02 20 6-20 (mg/dL) Final Creatinine 12/07/2024 08:52:02 1.7 Above high normal 0.6-1.2 (mg/dL) Final Glomerular filtration rate/1.73 sq M.predicted [Volume Rate/Area] in Serum, Plasma or Blood by Creatinine-based formula (CKD-EPI) 12/07/2024 08:52:02 40 Below low normal >=60 (mL/min) Final eGFR is calculated based on the CKD-EPI 2020 equation. Sodium 12/07/2024 08:52:02 141 135-146 (m mol/L) Final Potassium 12/07/2024 08:52:02 4.4 3.5-5.1 (m mol/L) Final Cl 12/07/2024 08:52:02 110 Above high normal 98 -107 (mmol/L) Final CO2 12/07/2024 08:52:02 18 Below low normal 22- 32 (mmol/L) Final Anion gap 12/07/2024 08:52:02 13 7-15 (mmol /L) Final Glucose 12/07/2024 08:52:02 116 70-120 (mg /dL) Final Albumin 12/07/2024 08:52:02 4.2 3.8-5.0 (g /dL) Final AST (Aspartate aminotransferase) 12/07/2024 08:52:02 30 10-50 (U/L) Fin al Alk Phos 12/07/2024 08:52:02 45 35-130 (U/ L) Final Bilirubin, Total 12/07/2024 08:52:02 0.4 <=1 .2 (mg/dL) Final Calcium 12/07/2024 08:52:02 9.4 8.4-10.2 ( mg/dL) Final Protein 12/07/2024 08:52:02 7.4 6.0-8.3 (g /dL) Final ALT (Alanine aminotransferase) 12/07/2024 08:52:02 25 10-50 (U/L) Frederick vaughan Performing Location [facility] [address] [place] [address]
--- OUTSIDE RECORDS SUMMARY | 2025-01-05 06:47 | External Medical Summary | Summary of Care ---
Author Name Unknown Organization [facility] Address [address] [place] [address] Phone [phone] Care Team Providers Care Tool Engine Lathe Set Up Operator Name Role Phone Henrik Campbell DO Primary Care Provider Reason for Visit * Reason Comments Outpatient Testing Encounter Details Date Type Department Care Team (Late st Contact Info) Description 12/07/2024 9:00 AM EDT Laboratory Laboratory [facility] Cheri [place] [address] [place] [address] [place], Lab Scenery [address] [place] [address] Urothelial carcinoma of kidney, right (HCC); Encounter [...] Budesonide 32 MCG/ACT Nasal Suspension Administer 1 [place] into nostril in the morning. Active Rimegepant [...] PM EDT PulmDiagnostic Pulmonary Function Lab, [facility] [address] [place] [address] West, [address] [place] [address] 12/14/2024 8:45 AM EDT Imaging Radiology [facility] 1st [facility] [address] [place] [address] 12/21/2024 9:00 AM EDT Laboratory Laboratory [facility] [address] [place] [address] Cheri, Lab Scenery [address] [place] [address] 12/21/2024 9:30 AM EDT Office Visit Hematology/Oncology Scenery [facility] [address] [place] [address] Renea Easley CRNP [address] [facility] [place] [address] 12/21/2024 10:00 AM EDT Hem/Onc Treatment Hematology/Oncology Treatment, [place] [address] [place] [address] Cheri, Chair 4 Hem Onc Scenery 200 [facility] [place], [place] [address] 02/03/2025 1:30 PM EDT Telemedicine Psychiatry [place] [address] [place] [address] Princess Kwon MD [address] [place] [address] 03/15/2025 3:00 PM EDT Procedure Only Urology, [facility] [address] [place] [address] Roberto Edwards MD [address] [place] [address] 04/23/2025 10:40 AM EDT Telemedicine Neurology [address] [place] [address] Nan Miller MD [address] [place], [place] [address] 04/29/2025 8:00 AM EDT Office Visit Pulmonary Medicine, [facility] [address] [place] [address] Luigi Bass MD [address] [place] [id number] 05/25/2025 9:00 AM EDT Office Visit [facility] [address] [place] [address] Rema Carpenter CRNP [address] [place] [address] 06/08/2025 3:30 PM EDT Procedure Only Urology, [facility] [address] [place] [address] Roberto Edwards MD [address] [place] [address] 06/17/2025 2:20 PM EDT Office Visit Nephrology, [facility] 200 [facility] [place] [address] Reece Cross MD 200 [facility] [place] [address] 11/23/2025 9:40 AM EDT Office Visit [facility] [address] [place] [address] Henrik Campbell DO [address] [place] [address] Pending Results Name Type Priority Associated Diagnoses [...] Additional history exists CKD PHOS USE SMARTSET 67439 08/03/2025 08/03/2024, 1 09/20/2023 HbA1c 11/23/2025 11/23/2024, 03/0 10/2024, 05/04/2024, Additional history exists CKD HGB USE SMARTSET 24243 12/07/202512/07, 12/07/2024, 11/23/2024, Additional history exists Colonoscopy [...] this encounter Medical Devices Implanted Type Area Copping Machine Operator Device Identifier Shelf Expiration Date Model / Serial / Lot Lens Intraoc 19.5 - [id number] - [id number] Implanted:Qty : 1 on 12/07/2021 by Eulogio Barrios MD at [facility] Left: Eye BAUSCH 07/25/2026 [id number] / [id number] / [id number] Lens Intraoc 19.5 - [id number] - [id number] Implanted:Qty : 1 on 12/19/2021 by Eulogio Barrios MD at [facility] Right: Eye BAUSCH 07/25/2026 [id number] / [id number] / [id number] Port Implant W8f Poly Cath - [id number] Implanted:Qty : 1 on 01/08/2024 by Austin Ervin MD at OR [facility] Right: Chest CR BARD : PERIPHERAL VASCULAR [id number] 01/23/2025 [id number] / / [id number] documented as of this encounter Procedures Procedure [...] 10.80 K/uL 12/07/2024 9:29 AM EDT LABORATORY [place] 56-02 Neutrophils % 67.0 40.0 - 75.0 % 12/07/2024 9:29 AM EDT [facility] 56-02 Lymphocytes % 16.0(L) 18.0 - 42.0 % 12/07/2024 9:29 AM EDT LABORATORY [place] 56-02 Monocytes % 12.0(H) 1.0 - 11.0 % 12/07/2024 9:29 AM EDT [facility] 56-02 Eosinophils % 4.0 0.0 - 6.0 % 12/07/2024 9:29 AM EDT [facility] 56-02 Basophils % 1.0 0.0 - 2.0 % 12/07/2024 9:29 AM EDT [facility] 56-02 Absolute Neutrophils 5.93 1.80 - 7.70 K/uL 12/07/2024 9:29 AM EDT [facility] 56-02 Absolute Lymphocytes 1.42 1.00 - 4.80 K/uL 12/07/2024 9:29 AM EDT [facility] 56-02 Absolute Monocytes 1.06 0.00 - 1.10 K/uL 12/07/2024 9:29 AM EDT [facility] 56-02 Absolute Eosinophils 0.35 0.00 - 0.70 K/uL 12/07/2024 9:29 AM EDT [facility] 56-02 Absolute Basophils 0.09 0.00 - 0.20 K/uL 12/07/2024 9:29 AM EDT [facility] 56-02 nRBCs 12/07/2024 9:29 AM EDT [facility] 56-02 Blood Venous blood specimen / Unknown Venipuncture / Unknown 12/07/2024 8:52 AM EDT 12/07/2024 8:52 AM EDT Chandler Winter MD LAB BLOOD ORDERABLES Fin al Result [facility] [address] [place] [address] * DIFFERENTIAL, AUTOMATED (12/07/2024 8:52 AM EDT) Blood Venous blood specimen / Unknown Venipuncture / Unknown 12/07/2024 8:52 AM EDT 12/07/2024 8:52 AM EDT Chandler Winter MD LAB BLOOD ORDERABLES Fin al Result [facility] 56- [address] [place] [address] * CBC (12/07/2024 8:52 AM EDT) Pathologist [facility] WBC 8.85 4.00 - 10.80 K/uL 12/07/2024 9:29 AM EDT [facility] 56- RBC 4.43 4.50 - 5.25 M/uL 12/07/2024 9:29 AM EDT [facility] 56 HGB 14.1 14.0 - 16.8 g/dL 12/07/2024 9:29 AM EDT [facility] 56 HCT 42.6 40.0 - 48.4 % 12/07/2024 9:29 AM EDT [facility] 56 MCV 96.2 82.0 - 99.5 fL 12/07/2024 9:29 AM EDT [facility] 56 MCH 31.8 27.0 - 34.0 pg 12/07/2024 9:29 AM EDT [facility] 56 MCHC 33.1 32.0 - 36.0 g/dL 12/07/2024 9:29 AM EDT [facility] 56 RDW 13.0 11.5 - 15.5 % 12/07/2024 9:29 AM EDT [facility] 56 PLT 247 140 - 400 K/uL 12/07/2024 9:29 AM EDT [facility] 56 MPV 9.2 6.6 - 11.1 fL 12/07/2024 9:29 AM EDT [facility] 56 Blood Venous blood specimen / Unknown Venipuncture / Unknown 12/07/2024 8:52 AM EDT 12/07/2024 8:52 AM EDT Chandler Winter MD LAB BLOOD ORDERABLES Fin al Result [facility] 56- [address] [place] [address] * (ABNORMAL) COMPREHENSIVE METABOLIC PANEL (12/07/2024 8:52 AM EDT) [facility] BUN 20 6 - 20 mg/dL 12/07/2024 9:30 AM [facility] 56 CREATININE 1.7(H) 0.6 - 1.2 mg/dL 12/07/2024 9:30 AM [facility] 56 EGFR 40(L) >=60 mL/min 12/07/2024 9:30 AM [facility] 56 Comment:eGFR is calculated b ased on the CKD-EPI 2020 equation. SODIUM 141 135 - 146 mmol/L 12/07/2024 9:30 AM [facility] 56 POTASSIUM 4.4 3.5 - 5.1 mmol/L 12/07/2024 9:30 AM [facility] 56 CHLORIDE 110(H) 98 - 107 mmol/L 12/07/2024 9:30 AM [facility] 56 CO2 18(L) 22 - 32 mmol/L 12/07/2024 9:[address] ANION GAP 13 7 - 15 mmol/L 12/07/2024 9:[address] GLUCOSE 116 70 - 120 mg/dL 12/07/2024 9:30 AM [facility] 56 Albumin 4.2 3.8 - 5.0 g/dL 12/07/2024 9:30 AM [facility] 56 AST 30 10 - 50 U/L 12/07/2024 9:30 AM [facility] 56 Alkaline Phosphatase 45 35 - 130 U/L 12/07/2024 9:30 AM [facility] 56 Bilirubin, Total 0.4 <=1.2 mg/dL 12/07/2024 9:30 AM [facility] 56 CALCIUM 9.4 8.4 - 10.2 mg/dL 12/07/2024 9:30 AM [facility] 56- Protein 7.4 6.0 - 8.3 g/dL 12/07/2024 9:30 AM [facility] 56 ALT 25 10 - 50 U/L 12/07/2024 9:30 AM [facility] 56 Blood Venous blood specimen / Unknown Venipuncture / Unknown 12/07/2024 8:52 AM EDT 12/07/2024 8:52 AM EDT Chandler Winter MD LAB BLOOD ORDERABLES Fin al Result [facility] [place] [address] [place] [address] documented in this encounter Visit Diagnoses Diagnosis Urothelial carcinoma of kidney, right (HCC) Encounter for long-term (current) use of medications Encounter for long-term (current) use of other medications documented in this encounter Advance Directives Documents on File Type Date Recorded Patient Instructor Physical Expl anation Advance Directives and Living Will [...] File Name Relationship [facility] Roma Gutiérrez Spouse Health Care Agen t (per Health Care Power of Solutions Architect Consultant document) Care Teams Tool Engine Lathe Set Up Operator Relationship Specialty Start Date End Date Henrik Campbell DO [address] [place] [address] PCP - General Family Medicine 06/02/18 documented as of this encounter
--- OUTSIDE RECORDS SUMMARY | 2025-01-05 06:48 | External Medical Summary ---
Author Name Unknown Address Unknown Organization K01:[facility] [place] [address] [place] [address] Laboratory Report Ordering Provider Test Date Status KEITH SWAN 11/23/2024 08:28:50 Final Observation Date Value Abnormality Reference (Units ) Status LDL, (direct) 11/23/2024 08:28:50 87 <=129 (mg/dL) Final LDL Cholesterol Reference Ra nges (mg/dL):
<70 � � Target level for high risk ASCVD patient
<100 � �Optimal for general population
100-129 Near optimal for general population
130-159 Borderline high
160-189 High
>=190 � Very high Performing Location [facility] - [address] [place] [address]
--- OUTSIDE RECORDS SUMMARY | 2025-01-05 06:48 | External Medical Summary | Summary of Care ---
Author Name Unknown Organization [facility] Address [address] [place] [address] Phone [phone] Care Team Providers Care Dentist Attendant Name Role Phone Campbell Henrik Brandgabbi Primary Care Provider Reason for Visit * Reason Comments Outpatient Testing Encounter Details Date Type Department Care Team (Late st Contact Info) Description 11/23/2024 8:30 AM EDT Laboratory Laboratory, [facility] [address] [facility] [address] [facility] [address] [place] [address] Urothelial carcinoma of kidney, right (HCC); Encounter for long-term (current) use of medications; BPH with obstruction/lower urinary tract symptoms; Elevated prostate specific antigen (PSA); Disorder of kidney and ureter, unspecified; Hematuria, gross; Prediabetes; Dyslipidemia, goal LDL below 130 Allergies Active Allergy Reactions Criticality Noted Date [...] Budesonide 32 MCG/ACT Nasal Suspension Administer 1 [place] into nostril in the morning. Active Rimegepant [...] November 23, 2024. 15 Tablet 3 11/24/19 Active Finasteride 5 MG Oral Tablet (Proscar)Indicatio [...] bedtime. With food.. 10 Capsule 11/21/19 Active Hospital, Clinic, or Other Facility Administered [...] Telemedicine Psychiatry Diogo Squires [address] [place] [phone] Princess Kwon MD [address] [place] [address] 12/07/2024 9:00 AM EDT Laboratory Laboratory [facility] [address] [place] [address] Cheri Lab [facility] [address] [facility] [place] [address] 12/07/2024 10:00 AM EDT Hem/Onc Treatment Hematology/Oncology Treatment, [place] [address] [place] [address] Cheri, Chair 1 Hem Onc [address] [place] [address] 2024 1:30 PM EDT PulmDiagnostic Pulmonary Function Lab, [facility] [address] [facility] [place] [phone] West, Pft [address] [place] [address] 12/14/2024 8:45 AM EDT Imaging Radiology [facility] 1st [facility] [address] [place] [phone] 12/21/2024 9:00 AM EDT Laboratory Laboratory [facility] [address] [place] [address] Cheri, Lab [facility] 200 [facility] [place] [address] 12/21/2024 9:30 AM EDT Office Visit Hematology/Oncology [facility] [place] [address] [place] [address] Renea Easley CRNP 400 [facility] [place] [phone] 12/21/2024 10:00 AM EDT Hem/Onc Treatment Hematology/Oncology Treatment, [place] [address] [place] [address] Cheri, Chair 4 Hem Onc [facility] 200 [facility] [place] [address] 03/15/2025 3:00 PM EDT Procedure Only Urology, [facility] [address] [place] [phone] Roberto Edwards MD [address] [place] [address] 04/23/2025 10:40 AM EDT Telemedicine Neurology [address] [place] [address] Nan Miller MD [address] [facility] [place] [address] 04/29/2025 8:00 AM EDT Office Visit Pulmonary Medicine, [facility] [address] [facility] [place] [phone] Luigi Bass MD [address] [place] [address] 05/25/2025 9:00 AM EDT Office Visit [facility] [address] [facility] [address] Rema Carpenter CRNP [address] [facility] [place] [address] 06/08/2025 3:30 PM EDT Procedure Only Urology, [facility] [address] [facility] [place] [phone] Roberto Edwards MD [address] [place] [phone] 06/17/2025 2:20 PM EDT Office Visit Nephrology, [facility] [address] [place] [address] Reece Cross MD [address] [place] [address] 11/23/2025 9:40 AM EDT Office Visit [facility] [address] [facility] [place] [address] Henrik Campbell DO [address] [facility] [place] [address] Pending Results Name Type Priority Associated Diagnoses Date /Time TSH WITH FREE T4 IF INDICATED Lab STAT Urothelial carcinoma of kidney, right (HCC) Encounter for long-term (current) use of medications 11/23/2024 8:28 AM EDT CULTURE, URINE, QUANTITATIVE Lab Routine Urothelial carcinoma of kidney, 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 Elevated prostate specific antigen (PSA) Disorder of kidney and ureter, unspecified Hematuria, gross 11/23/2024 8:34 AM EDT HEMOGLOBIN A1C Lab Routine Prediabetes 11/23/2024 8:28 AM EDT LIPID PANEL WITH DIRECT LDL IF TG IS HIGH Lab Routine Dyslipidemia, goal LDL below 130 11/23/2024 8:28 AM EDT Scheduled Procedures Name Priority Associated [...] Additional history exists CKD PHOS USE SMARTSET 26958 08/03/2025 08/03/2024, 1 09/20/2023 HbA1c 10/26/2025 10/26/2024, 09/04/2024, 11/06/2023, Additional history exists CKD HGB USE SMARTSET 04778 11/23/202511/23, 11/23/2024, 11/09/2024, Additional history exists Colonoscopy 01/21/2027 01/22/2024, 12/25, [...] this encounter Medical Devices Implanted Type Area [place] Device Identifier Shelf Expiration Date Model / Serial / Lot Lens Intraoc 19.5 - [id number] - [id number] Implanted:Qty : 1 on 12/07/2021 by Eulogio Barrios MD at OR [facility] Left: Eye [employer]OM[employer] 07/25/2026 [id number] / [id number] / [id number] Lens Intraoc 19.5 - [id number] - [id number] Implanted:Qty : 1 on 12/19/2021 by Eulogio Barrios MD at OR [facility] Right: Eye [employer] LOMB 07/25/2026 [id number] / [id number] / [id number] Port Implant W8f Poly Cath - [id number] Implanted:Qty : 1 on 01/08/2024 by Austin Ervin MD at OR [facility] Right: Chest CR BARD : PERIPHERAL VASCULAR [id number] 01/23/2025 [id number] / / [id number] documented as of this encounter Procedures Procedure Name Priority Date/Time Associated Diagnosis Comments DIFFERENTIAL, AUTOMATED STAT 11/23/2024 8:28 AM EDT Urothelial carcinoma of kidney, right (HCC) COMPREHENSIVE METABOLIC PANEL STAT 11/23/2024 8:28 AM EDT Urothelial carcinoma of kidney, right (HCC) CBC STAT 11/23/2024 8:28 AM EDT Urothelial carcinoma of kidney, right (HCC) CBC STAT 11/23/2024 8:28 AM EDT Urothelial carcinoma of kidney, right (HCC) documented in this encounter Results * (ABNORMAL) DIFFERENTIAL, AUTOMATED (11/23/2024 8:28 AM EDT) WBC 10.37 4.00 - 10.80 K/uL 11/23/2024 8:46 AM EDT [facility] [place] [facility] Neutrophils % 76.4(H) 40.0 - 75.0 % 11/23/2024 8:46 AM EDT [facility] [place] [facility]10 Lymphocytes % 11.9(L) 18.0 - 42.0 % 11/23/2024 8:46 AM EDT [facility] [place] [facility] Monocytes % 9.3 1.0 - 11.0 % 11/23/2024 8:46 AM EDT [facility] [place] [facility] Eosinophils % 2.0 0.0 - 6.0 % 11/23/2024 8:46 AM EDT [facility] [place] [facility] Basophils % 0.4 0.0 - 2.0 % 11/23/2024 8:46 AM EDT [facility] [place] [facility] Absolute Neutrophils 7.93(H) 1.80 - 7.70 K/uL 11/23/2024 8:46 AM EDT [facility] [place] [facility] Absolute Lymphocytes 1.23 1.00 - 4.80 K/ul 11/23/2024 8:46 AM EDT [facility] [place] [facility] Absolute Monocytes 0.96 0.00 - 1.10 K/uL 11/23/2024 8:46 AM EDT [facility] [place] [facility] Absolute Eosinophils 0.21 0.00 - 0.70 K/uL 11/23/2024 8:46 AM EDT [facility] [place] [facility] Absolute Basophils 0.04 0.00 - 0.20 K/uL 11/23/2024 8:46 AM EDT [facility] [place] [facility]10 Blood Venous blood specimen / Unknown Venipuncture / Unknown 11/23/2024 8:28 AM EDT 11/23/2024 8:28 AM EDT Chandler Winter MD LAB BLOOD ORDERABLES Fin al Result [facility]ORY [facility] [place] [facility] [place] [address] * (ABNORMAL) CBC (11/23/2024 8:28 AM EDT) WBC 10.37 4.00 - 10.80 K/uL 11/23/2024 8:46 AM EDT [facility]ORY [facility] [place] 57[facility]10 RBC 4.26 4.50 - 5.25 M/uL 11/23/2024 8:46 AM EDT LAB[facility]ORY [facility] [place] 57-10 HGB 13.7(L) 14.0 - 16.8 g/dL 11/23/2024 8:46 AM EDT [facility] [place] 57[facility]10 HCT 41.1 40.0 - 48.4 % 11/23/2024 8:46 AM EDT LAB[facility] [place] 57[facility]10 MCV 96.5 82.0 - 99.5 fL 11/23/2024 8:46 AM EDT LAB[facility]ORY [facility] [place] 57[facility]10 MCH 32.2 27.0 - 34.0 pg 11/23/2024 8:46 AM EDT LAB[facility] [place] 57[facility]10 MCHC 33.3 32.0 - 36.0 g/dL 11/23/2024 8:46 AM EDT LAB[facility] [place] 57[facility]10 RDW 12.5 11.5 - 15.5 % 11/23/2024 8:46 AM EDT [facility] [place] [facility] PLT 203 140 - 400 K/uL 11/23/2024 8:46 AM EDT [facility] [place] [facility] MPV 9.4 6.6 - 11.1 fL 11/23/2024 8:46 AM EDT LAB[facility]ORY [facility] [place] 57[facility]10 Blood Venous blood specimen / Unknown Venipuncture / Unknown 11/23/2024 8:28 AM EDT 11/23/2024 8:28 AM EDT Chandler Winter MD LAB BLOOD ORDERABLES Fin al Result [facility] [facility]10 [address] [place] [address] * (ABNORMAL) COMPREHENSIVE METABOLIC PANEL (11/23/2024 8:28 AM EDT) Pathologist [facility] BUN 20 6 - 20 mg/dL 11/23/2024 9:08 AM EDT [facility] 57-10 CREATININE 1.7(H) 0.6 - 1.2 mg/dL 11/23/2024 9:08 AM EDT [facility] 57-10 EGFR 40(L) >=60 mL/min 11/23/2024 9:08 AM EDT [facility] 57-10 Comment:eGFR is calculated b ased on the CKD-EPI 2020 equation. SODIUM 142 135 - 146 mmol/L 11/23/2024 9:08 AM EDT [facility] 57-10 POTASSIUM 4.4 3.5 - 5.1 mmol/L 11/23/2024 9:08 AM EDT [facility]10 CHLORIDE 110(H) 98 - 107 mmol/L 11/23/2024 9:08 AM EDT [facility]10 CO2 20(L) 22 - 32 mmol/L 11/23/2024 9:08 AM EDT [facility] 57-10 ANION GAP 12 7 - 15 mmol/L 11/23/2024 9:08 AM EDT [facility] 57-10 GLUCOSE 114 70 - 120 mg/dL 11/23/2024 9:08 AM EDT [facility] 57-10 Albumin 4.1 3.8 - 5.0 g/dL 11/23/2024 9:08 AM EDT [facility] 57-10 AST 22 10 - 50 U/L 11/23/2024 9:08 AM EDT [facility] 57-10 Alkaline Phosphatase 45 35 - 130 U/L 11/23/2024 9:08 AM EDT [facility] [place] [facility] Bilirubin, Total 0.4 <=1.2 mg/dL 11/23/2024 9:08 AM EDT [facility] [place] [facility]10 CALCIUM 9.3 8.4 - 10.2 mg/dL 11/23/2024 9:08 AM EDT [facility] [place] [facility]10 Protein 7.4 6.0 - 8.3 g/dL 11/23/2024 9:08 AM EDT [facility] [place] [facility]10 ALT 22 10 - 50 U/L 11/23/2024 9:08 AM EDT [facility] [place] [facility]10 Blood Venous blood specimen / Unknown Venipuncture / Unknown 11/23/2024 8:28 AM EDT 11/23/2024 8:28 AM EDT Chandler Winter MD LAB BLOOD ORDERABLES Fin al Result Performing Organization Address City/State/[facility] Co de Phone Number [facility] [facility] [place] [address] documented in this encounter Visit Diagnoses Diagnosis Urothelial carcinoma of kidney, right (HCC) Encounter for long-term (current) use of medications Encounter for long-term (current) use of other medications BPH with obstruction/lower urinary tract symptoms Hypertrophy of prostate with urinary obstruction and other lower urinary tract symptoms (LUTS) Elevated prostate specific antigen (PSA) Disorder of kidney and ureter, unspecified Hematuria, gross Gross hematuria Prediabetes Other abnormal glucose Dyslipidemia, goal LDL below 130 Other and unspecified hyperlipidemia documented in this encounter Advance Directives Documents on File Type Date Recorded Patient Welt Slasher Expl anation Advance Directives and Living Will [...] Agents on File Name Relationship Healthcare Agent [facility] Roma Gutiérrez Spouse Health Care Agen t (per Health Care Power of Log Data Technician document) Care Teams Dentist Attendant Relationship Specialty Start Date End Date Henrik Campbell DO [address] [place] [address] PCP - General Family Medicine 06/02/18 documented as of this encounter
--- OUTSIDE RECORDS SUMMARY | 2025-01-05 06:48 | External Medical Summary ---
Author Name Unknown Address Unknown Organization [id number]:LABORATORY [facility] [place] 57-10 - [address] [place] [address] Laboratory Report Ordering Provider Test Date Status JEAN PIERRE SON 11/23/2024 08:28:50 Final Observation Date Value Abnormality Reference (Units ) Status BUN 11/23/2024 08:28:50 20 6-20 (mg/dL) Final Creatinine 11/23/2024 08:28:50 1.7 Above high normal 0.6-1.2 (mg/dL) Final Glomerular filtration rate/1.73 sq M.predicted [Volume Rate/Area] in Serum, Plasma or Blood by Creatinine-based formula (CKD-EPI) 11/23/2024 08:28:50 40 Below low normal >=60 (mL/min) Final eGFR is calculated based on the CKD-EPI 2020 equation. Sodium 11/23/2024 08:28:50 142 135-146 (m mol/L) Final Potassium 11/23/2024 08:28:50 4.4 3.5-5.1 (m mol/L) Final Cl 11/23/2024 08:28:50 110 Above high normal 98 -107 (mmol/L) Final CO2 11/23/2024 08:28:50 20 Below low normal 22- 32 (mmol/L) Final Anion gap 11/23/2024 08:28:50 12 7-15 (mmol /L) Final Glucose 11/23/2024 08:28:50 114 70-120 (mg /dL) Final Albumin 11/23/2024 08:28:50 4.1 3.8-5.0 (g /dL) Final AST (Aspartate aminotransferase) 11/23/2024 08:28:50 22 10-50 (U/L) Fin al Alk Phos 11/23/2024 08:28:50 45 35-130 (U/ L) Final Bilirubin, Total 11/23/2024 08:28:50 0.4 <=1 .2 (mg/dL) Final Calcium 11/23/2024 08:28:50 9.3 8.4-10.2 ( mg/dL) Final Protein 11/23/2024 08:28:50 7.4 6.0-8.3 (g /dL) Final ALT (Alanine aminotransferase) 11/23/2024 08:28:50 22 10-50 (U/L) Frederick vaughan Performing Location LAB[facility]ATORY [place] 57-1 0 - [address] [facility] [address]
--- OUTSIDE RECORDS SUMMARY | 2025-01-05 06:48 | External Medical Summary | Summary of Care ---
Author Name Unknown Organization [facility] Address [address] [place] [address] Phone [phone] Care Team Providers Care Assistant Professor Of Physics Name Role Phone Ross Campbellbrian Brandgabbi Primary Care Provider Reason for Visit * Reason Onset Date Comments Advice 11/19/2024 Encounter Details Date Type Department Care Team (Late st Contact Info) Description 11/19/2024 Telephone Urology Woody Serrano [address] [place] [address] [place] [address] Roberto Edwards MD [address] [place] [address] Advice Allergies Active Allergy Reactions Criticality Noted Date Comments Azelastine Unknown 02/01/2021 Onabotulinumtoxina Other (Please comment) High 01/20/2021 Swallowing difficulty after injection documented as of this encounter (statuses as of 11/20/2024) Medications VITAMIN B-12 100 MCG PO TABS [...] Budesonide 32 MCG/ACT Nasal Suspension Administer 1 [place] into nostril in the morning. Active Rimegepant [...] mg Oral BID (.AM/PM),As needed, Reported on 11/17/2024 Ondansetron 4 MG Oral Tablet Disintegrating (Zofran) [...] Oral Tablet (Atogepant) Take by mouth. Active Lisinopril-hydroCH LOROthiazide 20-12.5 MG Oral Tablet TAKE 1 TABLET BY MOUTH ONCE DAILY 90 Tablet 1 04/28/20 24 Active Additional Information Patient not taking.Reported on 10/19/2024 buPROPion HCl 100 MG Oral Tablet (Wellbutrin) Take 0.5 Tablets by mouth in the morning and 0.5 Tablets before bedtime. 30 Tablet 5 05/29/20 24 Active Magic Swizzle (Lidocaine-Benadry l-Maalox) oral solution Swish and spit 15 mL in the morning and 15 mL at noon and 15 mL in the evening and 15 mL before bedtime. 240 mL 06/08/20 Active Additional Information Patient not taking.Informant: At Discharge, Reported on 11/17/2024 Propranolol HCl 20 MG Oral Tablet (Inderal) Take 1 tablet at 6 am and 1 tablet at 2 pm daily 60 Tablet 5 07/10/20 Active Mirtazapine 15 MG Oral Tablet (Remeron) Take 1 Tablet by mouth at bedtime. 30 Tablet 5 08/05/20 Active LORazepam 0.5 MG Oral Tablet (Ativan) [...] MOUTH IN THE MORNING 90 Capsule 11/18/19 Active Lidocaine-Prilocai ne 2.5-2.5 % External [...] as of this encounter (statuses as of 11/20/2024) Active Problems Problem Noted Date Diagnosed Date [...] as of this encounter (statuses as of 11/20/2024) Resolved Problems Problem Noted Date Diagnosed Date [...] as of this encounter (statuses as of 11/20/2024) Immunizations Name Administration Dates Next Due COVID-19 [...] No 07/09/2024 Does the household have a acoma-canoncito-laguna service unitlar source of income? (Household - for ages [...] and asks to be called back at [phone] * Telephone Encounter - Radha Sanchez LPN [...] cystoscopy? HM * Telephone Encounter - Nilda Cerrato, clamper - 11/19/2024 10:35 AM EDT Incoming call fro patient's stating that Josiah was supposed to be prescribed an antibiotic. She is stating that the pharmacy did not receive a prescription. Please review, reach out to patient and advise if appropriate. Thank you, Nilda Cerrato Nurse Examiner [facility] 11/19/2024,10:37 AM documented in this encounter Plan of Treatment Upcoming Encounters Date Type Department Care Team (Late st Contact Info) Description 11/23/2024 8:30 AM EDT Laboratory Laboratory, [facility] [address] [place] [address] Hamida Castillo [facility] [address] [place] [address] 11/23/2024 9:00 AM EDT Office Visit Family Practice [facility] [address] [place] [address] Henrik Campbell DO [address] [place] [address] 11/23/2024 11:00 AM EDT Office Visit Hematology/Oncology [facility] [address] [facility] [place] [phone] Chandler Winter MD [address] [facility] [place] [address] 11/23/2024 11:30 AM EDT Hem/Onc Treatment Hematology/Oncology Treatment, [place] [address] [facility] [address] Cheri, Chair 3 Hem Onc [address] [place] [address] 12/03/2024 1:00 PM EDT Telemedicine Psychiatry Diogo Squires [address] [place] [phone] Princess Kwon MD [address] [facility] [place] [address] 2024 1:30 PM EDT PulmDiagnostic Pulmonary Function Lab, [facility] [address] [place] [phone] West, P[address] [place] [address] 12/21/2024 9:30 AM EDT Office Visit Hematology/Oncology [facility] [address] [place] [phone] Renea Easley CRNP [address] [facility] [place] [phone] 03/15/2025 3:00 PM EDT Procedure Only Urology, [facility] [address] [place] [phone] Roberto Edwards MD [address] [place] [address] 04/23/2025 10:40 AM EDT Telemedicine Neurology [address] [place] [address] Nan Miller MD [address] [place] [address] 04/29/2025 8:00 AM EDT Office Visit Pulmonary Medicine, [facility] [address] [place] [phone] Luigi Bass MD [address] [facility] [address] 06/08/2025 3:30 PM EDT Procedure Only Urology, 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 Elevated prostate specific antigen (PSA) Disorder of kidney and ureter, unspecified Hematuria, gross Expected: 11/20/2024, Expires: 11/20/2025 Scheduled Procedures Name Priority Associated Diagnoses Date/Ti me ESOPHAGOGASTRODUODENOSCOPY ( EGD), FLEXIBLE, TRANSORAL, DIAGNOSTIC Recall Evans's esophagus with esophagitis Health Maintenance Due Date Last Done Comments Adult Wellness Visit 12/16/2019 12/15/2018 Depression Monitoring 12/22/2024 12/23/2023 Albumin/Creatinine Ratio 05/04/2025 024, 11/06/2023, 03/22/2023, Additional history exists COVID-19 Vaccine ( season) 2025 11/03/2024, 07/17/2021, 11/22/2020, Additional history exists GFR 05/12/2025 11/09/2024, 030 10/2024, 10/12/2024, Additional history exists CKD PHOS USE SMARTSET 42911 08/03/2025 08/03/2024, 1 09/20/2023 HbA1c 10/26/2025 10/26/2024, 09/0 04/2024, 11/06/2023, Additional history exists CKD HGB USE SMARTSET 04219 11/09/202511/09, 11/09/2024, 10/26/2024, Additional history exists Colonoscopy 01/21/2027 01/22/2024, 12/25, [...] this encounter Medical Devices Implanted Type Area Food Service Order Clerk Device Identifier Shelf Expiration Date Model / Serial / Lot Lens Intraoc 19.5 - [id number] - [id number] Implanted:Qty : 1 on 12/07/2021 by Eulogio Barrios MD at OR [facility] Left: Eye [employer] 07/25/2026 [id number] / [id number] Lens Intraoc 19.5 - [id number] - [id number] Implanted:Qty : 1 on 12/19/2021 by Eulogio Barrios MD at OR [facility] Right: Eye [employer]OM[employer] 07/25/2026 [id number] / [id number] / [id number] Port Implant W8f Poly Cath - [id number] Implanted:Qty : 1 on 01/08/2024 by Austin Ervin MD at OR [facility] Right: Chest CR BARD : PERIPHERAL VASCULAR [id number] 01/23/2025 [id number] / [id number] documented as of this encounter Visit Diagnoses Diagnosis Urothelial carcinoma of kidney, 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
--- OUTSIDE RECORDS SUMMARY | 2025-01-05 06:48 | External Medical Summary ---
Author Name Unknown Address Unknown Organization K01:[facility] [place] [address] [facility] [address] Laboratory Report Ordering Provider Test Date Status KEITH WSAN 11/23/2024 08:28:50 Final Observation Date Value Abnormality Reference (Units ) Status HbA1C 11/23/2024 08:28:50 5.6 4.0-5.6 (% ) Final The use of HbA1c to monitor glycemic status is based on normal hemoglobin and HbA composition. This test should not be used in patients with abnormal hemoglobin that affects the half life of the red blood cell or the in vivo glycation rates. Glucose, estimated average 11/23/2024 08:28:50 114 <126 (mg/dL) Final Performing Location [facility] [place] [address] [facility] [address]
--- OUTSIDE RECORDS SUMMARY | 2025-01-05 06:48 | External Medical Summary ---
Author Name Unknown Address Unknown Organization K01:LAB[facility]ATORY [facility] [place] - [address] [place] [id number] Laboratory Report Ordering Provider Test Date Status KEITH SWAN 11/23/2024 08:28:50 Final Observation Date Value Abnormality Reference (Units ) Status Triglyceride 11/23/2024 08:28:50 272 Above high normal <=174 (mg/dL) Final Triglyceride Reference Range s (mg/dL):
<150 Acceptable
150-174 Borderline high
175-499 High
>=500 Very high Cholesterol 11/23/2024 08:28:50 157 <200 (mg /dL) Final Total Cholesterol Reference Ranges (mg/dL):
<200 Desirable
200-239 Borderline high
>=240 High HDL 11/23/2024 08:28:50 40 >39 (mg/dL ) Final HDL Cholesterol Reference Ra nges (mg/dL):
>=60 High (Desirable)
<50 Low (Undesirable) For Females
<40 Low (Undesirable) For Males NON-HDL CHOLESTEROL 11/23/2024 08:28:50 117 <=159 (mg/dL) Final Non-HDL Cholesterol Referenc e Range (mg/dL):
<100 Target level for high risk ASCVD patient
<130 Optimal for general population
130-159 Near optimal for general population
160-189 Borderline High
190-219 High
>=220 Very High Performing Location LABORATORY [facility] - [address] [place] [id number]
--- OUTSIDE RECORDS SUMMARY | 2025-01-05 06:48 | External Medical Summary ---
Author Name Unknown Address Unknown Organization K01:LABORATORY [facility] [place] - [address] [place] [address] Laboratory Report Ordering Provider Test Date Status SONSHANNANJEAN PIERRE 11/23/2024 08:28:50 Final Observation Date Value Abnormality Reference (Units ) Status TSH 11/23/2024 08:28:50 6.34 Above high normal 0. 27-4.20 (uIU/mL) Final Performing Location [facility] [place] - [address] [place] [address]
--- OUTSIDE RECORDS SUMMARY | 2025-01-05 06:48 | External Medical Summary | Summary of Care ---
Author Name Unknown Organization [facility] Address [address] [place] [address] Phone [phone] Care Team Providers Care Mill Washer Name Role Phone Henrik Campbell DO Primary Care Provider Reason for Referral * Evaluate & Treat - Unlimited Visits (Within 3 days (urgent)) - Authorized Specialty Diagnoses / Procedures Referred By Contac t Referred To Contact Pain Management / Pain Medicine Diagnoses Lumbago-sciatica due to displacement of lumbar intervertebral disc Henrik Campbell DO [address] [place] [address] Phone: tel: fax: Referral ID Status Reason Start Date Expiration Date Visits Requested Visits Authorized [id number] Authorized Specialty Services Required 11/23/2024 999 999 Question Answer Referral Priority Within 3 days (urgent) Where should this appointment be scheduled? External - [facility] Reason for referral? Interventional Pain Management - (Injection) What condition is the patient being referred for? Back Axial What is the preferred location to have this test performed? Non [facility] Site Comments Please send to [facility] pain management group Patient Name: Josiah Gutiérrez Date of : 1940 Department Phone Number: MRI or CT (if unable to have a MRI) is recommended if any of the following apply: 1. Patient has neck or back pain with radiation to extremities. A previous MRI will be accepted if symptoms unchanged since prior MRI. 2. Spinal surgery since last MRI. If yes, order a MRI with and without contrast. 3. Hx or ongoing cancer treatment. Patient will need spine x-ray (Ap/Lat) for axial neck or back pain if not done previously. Fax No. [facility] [phone] or contact front desk worker [phone] Fax No. [facility] [phone] or contact front desk worker [phone] Fax No. [facility] [phone] or contact front desk worker [phone] Reason for Visit * Reason Comments Follow Up Discuss higher dose of Propranolol and pain relief for arthritis. Small growth in right groin-? Skin tag. Encounter Details Date Type Department Care Team (Latest Contact Info) Description 11/23/2024 9:00 AM EDT Office Visit Family Practice [facility] [address] [place] [address] Henrik Campbell DO [address] [place] [address] Major depressive disorder, recurrent episode, moderate ([facility])*; Prediabetes; Hypercalcemia; Mild intermittent asthma, unspecified whether complicated; HTN, goal below 140/90; Urothelial carcinoma of kidney, right ([facility]); Lumbago-sciatica due to displacement of lumbar intervertebral disc; Intractable chronic migraine without aura and without status migrainosus; FAHAD (generalized anxiety disorder); Chronic kidney disease, stage 3b ([facility]); Dyslipidemia, goal LDL below 130; Class 2 severe obesity due to excess calories with serious comorbidity and body mass index (BMI) of 36.0 to 36.9 in adult ([facility]) Allergies Active Allergy Reactions Criticality Noted Date [...] Budesonide 32 MCG/ACT Nasal Suspension Administer 1 [place] into nostril in the morning. Active Rimegepant [...] by mouth at bedtime. 30 Tablet 5 Active LORazepam 0.5 MG Oral Tablet (Ativan) [...] bedtime. With food.. 10 Capsule 025 Active Propranolol HCl 40 MG Oral Tablet (Inderal)Indicati ons:HTN, goal below 140/90,FAHAD (generalized anxiety disorder) Take 1 Tablet by mouth in the morning and 1 Tablet before bedtime. 180 Tablet 5 Active Lisinopril-hydroC HLOROthiazide 20-12.5 MG Oral Tablet [...] mRNA, LNP-s, No Pre serve, 2-Dose Series ([employer]) 07/17/2021,11/22/2020,10/26/2020 Pneumococcal Conjugate Vacc, 13 Valent (Prevnar) [...] S tarted: 1961 Smokeless Tobacco: Former Snuff Tobacco Cessation:Counseling Given: Not Answered Comments:Quit cigarettes 1983 Chew 1984 Alcohol Use Standard Drinks/Week Comments Yes 0 [...] Sign Reading Time Taken Comments Blood Pressure 160/92 11/23/2024 8:41 AM EDT Pulse 68 11/23/2024 8:41 AM EDT Temperature - - Respiratory Rate - - Oxygen Saturation 99% 11/23/2024 8:41 AM EDT Inhaled Oxygen Concentration - - Weight 110.8 kg (244 lb 4.8 oz) 11/23/2024 8:41 AM EDT Height - - Body Mass Index 36.08 09/03/2024 9:55 AM EST documented in this encounter Functional Status * Are you deaf or do you have serious difficulty hearing? Answer Date of Assessment Author No 11/27/2023 2:35 PM EDT Kenzie Pantoja, EDYTA * Are you blind or do you have serious difficulty seeing, even when wearing glasses? Answer Date of Assessment Author No 11/27/2023 2:35 PM ARONT Kenzie Pantoja RN * Do you have serious difficulty walking or climbing stairs? (5 years old or older) Answer Date of Assessment Author No 11/27/2023 2:35 PM ARONT Kenzie Pantoja, RN * Do you have difficulty dressing [...] Kenzie Harper RN documented in this encounter Progress Notes * Henrik Campbell, DO - 11/23/2024 8:46 AM EDT Images from the original note were not included. Assessment and Plan Assessment & Plan Arthritis Chronic arthritis affecting the knee and shoulder, causing significant pain with ambulation. Current pain management with acetaminophen is ineffective. Turmeric, an anti-inflammatory supplement, may reduce inflammation without affecting renal or hepatic function. It is generally safe and well-tolerated. - Initiate turmeric supplementation, 1000 mg daily, as per bottle instructions. MDD Continue f/u with psychiatry Urothelial carcinoma Follow with urology as is currently Also concerned about buried penis Which I have advised weight loss for FAHAD As above CKD Continue to avoid NSAIDS And other nephrotoxic meds Lumbar Spinal Stenosis Chronic lumbar spinal stenosis causing back pain. Previous relief from injections, but has not received one in 3-4 months. Prefers injections at [facility]. - Refer to [facility] for pain management injections. Primary Hypertension Managed with propranolol, taken twice daily. On a low dose with some benefit in slowing heart rate.Agrees to increase dose to improve blood pressure control and reduce white coat hypertension. Minimal change in side effects expected due to current tolerance. - Increase propranolol dose to 40 mg twice daily. Weight Management Reports difficulty losing weight, attributing some weight gain to mirtazapine, which increases appetite. Limited safe pharmacological options for weight loss due to potential cardiovascular side effects. Injectable options like semaglutide are not covered by insurance due to high cost. Not currently interested in a weight loss clinic referral but will attempt weight loss independently. - Monitor weight and consider future referral to a weight loss clinic if needed. General Health Maintenance Blood work was done today, and additional tests will be added to assess overall health status. - Monitor A1c and other lab results to assess overall health status. History of Present Illness Josiah Gutiérrez is a 83 year old male that presents for Follow Up (Discuss higher dose of Propranolol and pain relief for arthritis. Small growth in right groin-? Skin tag.) History of Present Illness The patient, with a history of arthritis and lumbar stenosis, reports worsening pain in the knee and shoulder. The pain is more pronounced when the patient is mobile and less so when sitting. The patient received a shot for the lumbar stenosis a few months ago, which provided some relief, but the pain has since returned. The patient is seeking another shot for the lumbar stenosis but has had difficulty finding a local provider. In addition to the arthritis and lumbar stenosis, the patient reports a decrease in penis size, which he attributes to weight gain and possible scar tissue. The patient expresses a desire to lose weight but has been unsuccessful in doing so. The patient is also taking propranolol twice daily and isopen to increasing the dosage. The patient's breathing is generally good, but he reports shortness of breath when bloated. The patient is scheduled to see a mechanical operator for further evaluation. The patient's digestion is reportedas normal. Physical Exam Vitals: 11/23/24 0841 Pulse: 68 SpO2: 99% BP: 160/92 Physical Exam Constitutional: Appearance: Normal appearance. HENT: Head: Normocephalic and atraumatic. Eyes: Extraocular Movements: Extraocular movements intact. Pupils: Pupils are equal, round, and reactive to light. Cardiovascular: Rate and Rhythm: Normal rate. Pulmonary: Effort: Pulmonary effort is normal. No respiratory distress. Breath sounds: Wheezing present. Abdominal: General: Abdomen is flat. Palpations: Abdomen is soft. Musculoskeletal: General: Tenderness present. Normal range of motion. Neurological: General: No focal deficit present. Mental Status: He is alert and oriented to person, place, and time. Psychiatric: Mood and Affect: Mood normal. Behavior: Behavior normal. Wrap-Up Time: Total time today was 42 minutes excluding any time spent in the performance of separately billed services. Text in this note was generated using an ambient documentation service. I discussed the use of a device to record and summarize our discussion today. All persons present during the encounter consented to its use. documented in this encounter Plan of Treatment Upcoming Encounters Date Type Department Care Team (Late st Contact Info) Description 12/03/2024 1:00 PM EDT Telemedicine Psychiatry Di[address] [place] [phone] Princess Kwon MD [address] [facility] [place] [address] 2024 1:30 PM EDT PulmDiagnostic Pulmonary Function Lab, [facility] [address] [place] [address] West, P[address] [place] [address] 12/21/2024 9:30 AM EDT Office Visit Hematology/Oncology [facility] [place] [address] [facility] [place] [address] Renea Easley CRNP [address] [facility] [place] [address] 03/15/2025 3:00 PM EDT Procedure Only Urology, [facility] [address] [place] [address] Roberto Edwards MD [address] [place] [id number] 04/23/2025 10:40 AM EDT Telemedicine Neurology [address] [place] [address] Nan Miller MD [address] [facility] [place] [address] 04/29/2025 8:00 AM EDT Office Visit Pulmonary Medicine, [facility] [address] [place] [address] Luigi Bass MD [address] [facility] [place] [address] 05/25/2025 9:00 AM EDT Office Visit [facility] [address] [place] [address] Rema Carpenter CRNP [address] [place] [address] 06/08/2025 3:30 PM EDT Procedure Only Urology, [facility] [address] [place] [address] Roberto Edwards MD [address] [place] [address] 06/17/2025 2:20 PM EDT Office Visit Nephrology, [facility] [address] [facility] [place], [place] [address] Reece Cross MD [address] [place] [address] 11/23/2025 9:40 AM EDT Office Visit [facility] [address] [place] [address] Henrik Campbell DO [address] [place] [address] Pending Results Name Type Priority Associated Diagnoses Date /Time HEMOGLOBIN A1C Lab Routine Prediabetes 11/23/2024 8:28 AM EDT LIPID PANEL WITH DIRECT LDL IF TG IS HIGH Lab Routine Dyslipidemia, goal LDL below 130 11/23/2024 8:28 AM EDT Scheduled Orders Name Type Priority Associated Diagnoses Orde r Schedule HEMOGLOBIN A1C Lab Routine Prediabetes Expected: 11/23/2024 (Approximate), Expires: 11/23/2025 LIPID PANEL WITH DIRECT LDL IF TG IS HIGH Lab Routine Dyslipidemia, goal LDL below 130 Expected: 11/23/2024, Expires: 11/23/2025 Scheduled Procedures Name Priority Associated Diagnoses Date/Ti me ESOPHAGOGASTRODUODENOSCOPY ( EGD), FLEXIBLE, TRANSORAL, DIAGNOSTIC Recall Evans's esophagus with esophagitis Scheduled Referrals Name Type Priority Associated Diagnoses Orde r Schedule PAIN MEDICINE REFERRAL OP Referral Within 3 days (urgent) Lumbago-sciatica due to displacement of lumbar intervertebral disc Ordered: 11/23/2024 Health Maintenance Due Date Last Done Comments Adult Wellness Visit 12/16/2019 12/15/2018 Depression Monitoring 12/22/2024 12/23/2023 Albumin/Creatinine Ratio 05/04/2025 024, 11/06/2023, 03/22/2023, Additional history exists COVID-19 Vaccine ( season) 2025 11/03/2024, 07/17/2021, 11/22/2020, Additional history exists GFR 05/25/2025 11/23/2024, 10/24, 10/26/2024, Additional history exists CKD PHOS USE SMARTSET 77860 08/03/2025 08/03/2024, 1 09/20/2023 HbA1c 10/26/2025 10/26/2024, 04/2024, 11/06/2023, Additional history exists CKD HGB USE SMARTSET 92597 11/23/202511/23, 11/23/2024, 11/09/2024, Additional history exists Colonoscopy 01/21/2027 01/22/2024, 2 [...] this encounter Medical Devices Implanted Type Area Deputy Manager Device Identifier Shelf Expiration Date Model / Serial / Lot Lens Intraoc 19.5 - [id number] - [id number] Implanted:Qty : 1 on 12/07/2021 by Eulogio Barrios MD at OR [facility] Left: Eye [employer]OM[employer] 07/25/2026 [id number] / [id number] / [id number] Lens Intraoc 19.5 - [id number] - [id number] Implanted:Qty : 1 on 12/19/2021 by Eulogio Barrios MD at OR [facility] Right: Eye BAUSCH [employer] LOMB 07/25/2026 [id number] / [id number] / [id number] Port Implant W8f Poly Cath - [id number] Implanted:Qty : 1 on 01/08/2024 by Austin Ervin MD at OR [facility] Right: Chest CR BARD : PERIPHERAL VASCULAR [id number] 01/23/2025 [id number] / / [id number] documented as of this encounter Visit Diagnoses Diagnosis Major depressive disorder, recurrent episode, moderate (HCC)- Primary Major depressive disorder, recurrent episode, moderate Prediabetes Other abnormal glucose Hypercalcemia Mild intermittent asthma, unspecified whether complicated HTN, goal below 140/90 Unspecified essential hypertension Urothelial carcinoma of kidney, right (HCC) 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 of lumbar intervertebral disc without myelopathy Intractable chronic migraine without aura and without status migrainosus Chronic migraine without aura, with intractable migraine, so stated, without mention of status migrainosus FAHAD (generalized anxiety disorder) Generalized anxiety disorder Chronic kidney disease, stage 3b (HCC) Dyslipidemia, goal LDL below 130 Other and unspecified hyperlipidemia Class 2 severe obesity due to excess calories with serious comorbidity and body mass index (BMI) of 36.0 to 36.9 in adult (HCC) documented in this encounter Advance Directives Documents on File Type Date Recorded 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
--- OUTSIDE RECORDS SUMMARY | 2025-01-05 06:48 | External Medical Summary | Summary of Care ---
Author Name Unknown Organization [facility] Address [address] [place] [address] Phone [phone] Care Team Providers Care Telephone Interceptor Operator Name Role Phone Adrian Henrik Brandgabbi Primary Care Provider Reason for Visit * Reason Onset Date Comments Medication Refill 11/17/2024 Encounter Details Date Type Department Care Team (Late st Contact Info) Description 11/17/2024 Refill Hematology/Oncology [facility] [place] Tele[place] [address] [facility] [phone] Chandler Winter MD [address] [facility] [place] [address] Urothelial carcinoma of kidney, right (HCC) Allergies Active Allergy Reactions Criticality Noted Date Comments Azelastine Unknown 02/01/2021 Onabotulinumtoxina Other (Please comment) High 01/20/2021 Swallowing difficulty after injection documented as of this encounter (statuses as of 11/18/2024) Medications VITAMIN B-12 100 MCG PO TABS [...] Budesonide 32 MCG/ACT Nasal Suspension Administer 1 [place] into nostril in the morning. Active Rimegepant [...] 15 mL before bedtime. 240 mL 06/08/20 24 Active Additional Information Patient not taking.Informant: At Discharge, Reported on 11/17/2024 Propranolol HCl 20 MG Oral Tablet (Inderal) Take 1 tablet at 6 am and 1 tablet at 2 pm daily 60 Tablet 5 07/10/20 24 Active Mirtazapine 15 MG Oral Tablet [...] ACCESSING. 30 g 2 11/18/19 25 Active Lidocaine-Prilocai ne 2.5-2.5 % External Cream (Emla)Indications: Urothelial carcinoma of kidney, right (HCC) Apply topically to affected area as needed for Other (none). APPLY TO SKIN OVER MEDIPORT & COVER 1HR PRIOR TO ACCESSING. 30 g 04/20/20 24 025 Discontin ued(Refil l) Hospital, Clinic, or Other Facility Administered Medication Ordered Dose Route Frequency Start Date End Date Status Albuterol Sulfate (Proventil) (2.5 MG/3ML) 0.083% inhalation solution 2.5 mgIndications:Lymphaden opathy, mediastinal,Urothelial carcinoma of kidney, right (HCC),Dyspnea and respiratory abnormalities 2.5 mg NEBULIZER PRN 05/25/2024 Active Albuterol Sulfate (Proventil) (5 MG/ML) 0.5% *conc* inhalation solution 2.5 mgIndications:Lymphaden opathy, mediastinal,Urothelial carcinoma of kidney, right (HCC),Dyspnea and respiratory abnormalities 2.5 mg NEBULIZER PRN 05/25/2024 Active Sulfamethoxazole-Trimet hoprim DS (Bactrim DS) 800-160 MG 1 TabletIndications:Uroth elial carcinoma of kidney, right (HCC) 1 Tablet OR ONCE 11/17/2024 11/18/2024 Activ e documented as of this encounter (statuses as of 11/18/2024) Active Problems Problem Noted Date Diagnosed Date [...] as of this encounter (statuses as of 11/18/2024) Resolved Problems Problem Noted Date Diagnosed Date [...] as of this encounter (statuses as of 11/18/2024) Immunizations Name Administration Dates Next Due COVID-19 [...] Kenzie Harper RN documented in this encounter Miscellaneous Notes * Telephone Encounter - Michael Hummel MD - 11/17/2024 3:53 PM EDT E-prescribed EMLA cream. * Telephone Encounter - Dacia Nick LPN - 11/17/2024 2:25 PM EDT Refill request for Emla Cream pended below: Last Refill: 04/20/2024 Last seen: 10/26/2024 Next Appt.: 11/23/2024 documented in this encounter Plan of Treatment Upcoming Encounters Date Type Department Care Team (Late st Contact Info) Description 11/23/2024 8:30 AM EDT Laboratory Laboratory, [facility] [place] [phone] [facility] [place] [address] 11/23/2024 9:00 AM EDT Office Visit Family Practice [facility] [address] [facility] [place] [address] Henrik Campbell DO [address] [facility] [place] [address] 11/23/2024 11:00 AM EDT Office Visit Hematology/Oncology [facility] [address] [place] [phone] Chandler Winter MD [address] [facility] [place] [address] 11/23/2024 11:30 AM EDT Hem/Onc Treatment Hematology/Oncology Treatment, Telephone [address] [place] [phone] Cheri, Chair 3 Hem Onc [address] [place] [address] 12/03/2024 1:00 PM EDT Telemedicine Psychiatry Ivy [address]ires [address] [place], [place] [address] Princess Kwon MD [address] [facility] [place], [place] [id number] 2024 1:30 PM EDT PulmDiagnostic Pulmonary Function Lab, [facility] [address] [place] [address] West, Pft [address] [place] [address] 12/21/2024 9:30 AM EDT Office Visit Hematology/Oncology [facility] [place] Telephone [address] [facility] [place] [address] Renea Easley CRNP [address] [facility] [place] [address] 04/23/2025 10:40 AM EDT Telemedicine Neurology [address] [place] [address] Nan Miller MD [address] [facility] [address] 04/29/2025 8:00 AM EDT Office Visit Pulmonary Medicine, [facility] [address] [place] [address] Luigi Bass MD [address] [place] [address] 06/08/2025 3:30 PM EDT Procedure Only Urology, [facility] [address] [place] [address] Roberto Edwards MD [address] [place] [id number] 06/17/2025 2:20 PM EDT Office Visit NephrologyDonald [address] [place] [address] Reece Cross MD [address] [place] [address] Scheduled Procedures Name Priority Associated Diagnoses Date/Ti me ESOPHAGOGASTRODUODENOSCOPY ( EGD), FLEXIBLE, TRANSORAL, DIAGNOSTIC Recall Evans's esophagus with esophagitis Health Maintenance Due Date Last Done Comments Adult Wellness Visit 12/16/2019 12/15/2018 Depression Monitoring 12/22/2024 12/23/2023 Albumin/Creatinine Ratio 05/04/2025 024, 11/06/2023, 03/22/2023, Additional history exists COVID-19 Vaccine ( season) 2025 11/03/2024, 07/17/2021, 11/22/2020, Additional history exists GFR 05/12/2025 11/09/2024, 0 10/2024, 10/12/2024, Additional history exists CKD PHOS USE SMARTSET 43999 08/03/2025 08/03/2024, 1 09/20/2023 HbA1c 10/26/2025 10/26/2024, 04/2024, 11/06/2023, Additional history exists CKD HGB USE SMARTSET 57614 11/09/202511/09, 11/09/2024, 10/26/2024, Additional history exists Colonoscopy [...] this encounter Medical Devices Implanted Type Area Pipeline Superintendent Division Device Identifier Shelf Expiration Date Model / Serial / Lot Lens Intraoc 19.5 - [id number] - [id number] Implanted:Qty : 1 on 12/07/2021 by Eulogio Barrios MD at OR [facility] Left: Eye BAUSCH [employer] LOMB 07/25/2026 [id number] / [id number] / [id number] Lens Intraoc 19.5 - [id number] - [id number] Implanted:Qty : 1 on 12/19/2021 by Eulogio Barrios MD at OR [facility] Right: Eye BAUSCH & LOMB 07/25/2026 [id number] / [id number] / [id number] Port Implant W8f Poly Cath - [id number] Implanted:Qty : 1 on 01/08/2024 by Austin Ervin MD at OR [facility] Right: Chest CR BARD : PERIPHERAL VASCULAR [id number] 01/23/2025 [id number] / / [id number] documented as of this encounter Visit Diagnoses Diagnosis Urothelial carcinoma of kidney, right (HCC) documented in this encounter Advance Directives Documents on File Type Date Recorded Patient Flight Operation Coordinator Expl anation Advance Directives and Living Will [...] Agen t (per Health Care Power of Hvac Tech document) Care Teams Telephone Interceptor Operator Relationship Specialty Start Date End Date Henrik Campbell DO [address] [place] [address] PCP - General Family Medicine 06/02/18 documented as of this encounter
--- OUTSIDE RECORDS SUMMARY | 2025-01-05 06:48 | External Medical Summary ---
Author Name Unknown Address Unknown Organization [facility] [address] [place] [address] Laboratory Report Ordering Provider Test Date Status JEAN PIERRE SON 11/23/2024 08:28:50 Final Observation Date Value Abnormality Reference (Units ) Status SYNC LEUKOCYTES IN BLOOD BY AUTOMATED COUNT 11/23/2024 08:28:50 10.37 4.00-10.80 (K/uL) Final Segs 11/23/2024 08:28:50 76.4 Above high normal 40.0-75.0 (%) Final Lymphs % 11/23/2024 08:28:50 11.9 Below low normal 18.0-42.0 (%) Final Monos 11/23/2024 08:28:50 9.3 1.0-11.0 (%) Final Eosinophils 11/23/2024 08:28:50 2.0 0.0-6.0 (%) Final Basos 11/23/2024 08:28:50 0.4 0.0-2.0 (%) Final Absolute Segs 11/23/2024 08:28:50 7.93 Above high normal 1.80-7.70 (K/uL) Final Lymphs, absolute 11/23/2024 08:28:50 1.23 1.00-4.80 (K/ul) Final Monos, Abs 11/23/2024 08:28:50 0.96 0.00-1.10 (K/uL) Final Eos, Abs 11/23/2024 08:28:50 0.21 0.00-0.70 (K/uL) Final Basos, Abs 11/23/2024 08:28:50 0.04 0.00-0.20 (K/uL) Final Performing Location [facility] [place] [address]
--- OUTSIDE RECORDS SUMMARY | 2025-01-05 06:48 | External Medical Summary | Summary of Care ---
Author Name Unknown Organization [facility] Address [address] [place] [address] Phone [phone] Care Team Providers Care Studio Control Operator Name Role Phone Campbell Henrik Brandgabbi Primary Care Provider Reason for Referral * Precert (Within 10 days (routine)) - Authorized Specialty Diagnoses / Procedures Referred By Contac t Referred To Contact Radiology Diagnoses Urothelial carcinoma of kidney, right (HCC) Procedures PET CT SKULL BASE TO MID-THIGH FDG Chandler Winter MD [address], [place] [address] Phone: tel: fax: Referral ID Status Reason Start Date Expiration Date V isits Requested Visits Authorized [id number] Authorized 12/23/2024 999 999 Reason for Visit * Reason Comments Re-Check Follow Up Encounter Details Date Type Department Care Team (Late st Contact Info) Description 11/23/2024 11:00 AM EDT Office Visit Hematology/Oncology [place] [facility] [place] [address] [place] [phone] Chandler Winter MD [address] [place] [address] Urothelial carcinoma of kidney, right (HCC)* Allergies [...] Budesonide 32 MCG/ACT Nasal Suspension Administer 1 [place] into nostril in the morning. Active Rimegepant [...] Overview: Per CKD protocol Ileus, postoperative 12/01/2023 04/ 024 Viral upper respiratory tract infection 08/06/2018 [...] Sign Reading Time Taken Comments Blood Pressure 149/83 11/23/2024 10:47 AM EDT Pulse 74 11/23/2024 10:47 AM EDT Temperature 36.7 °C (98 °F) 11/23/2024 10:47 AM EDT Respiratory Rate - - Oxygen Saturation 94% 11/23/2024 10:47 AM EDT Inhaled Oxygen Concentration - - Weight 110.2 kg (243 lb) 11/23/2024 10:47 AM EDT Height - - Body Mass Index 35.88 09/03/2024 9:55 AM EST documented in this encounter Functional Status * Are you deaf or do you have serious difficulty hearing? Answer Date of Assessment Author No 11/27/2023 2:35 PM EDKenzie Garzon RN * Are you blind or do [...] documented in this encounter Progress Notes * Maggy, Chandler Kearney MD - 11/23/2024 10:52 AM EDT Outpatient Consult Note Data Source: Patient, [facility] record. Data Source: Patient, [facility] record. 11/23/2024 10:52 AM Josiah Gutiérrez [id number] 83 year old Patient Encounter: HEMATOLOGY/ONCOLOGY [facility] Cancer Diagnosis: Urothelial carcinoma of kidney, right status post nephroureterectomy. Patient has pT3 pNx disease Current Treatment: Adjuvant nivolumab, received 1st dose on 01/13/2024 Patient received last dose on 05/04/2024. Follow-up PET scan shows new mediastinal lymphadenopathy. Nivolumab was resumed on 07/20/2024 because of biopsies from lymph nodes were negative Previous Treatment: Status post right nephroureterectomy Oncologic History : 83-year-old male presented with complaint of intermittent hematuria and had CT scan done on 08/06/2023 which revealed Ill-defined hypovascular filling defect in right posterior [...] his son was diagnosed of colon cancer. He had a follow-up PET scan done on 05/11/2024 which revealed new metabolically active mediastinal and bilateral hilar lymphadenopathy and new metabolically active focus at the GE junction further evaluation can be done by endoscopic. He had bronchoscopy done on 06/08/2024 with the FNA of the lymph nodes and pathology was negative for malignancy and it was all benign or nondiagnostic. Final Diagnosis A. Lymph Node, 11L Left Hilar, EBUS transbronchial fine needle aspiration: Adequacy: Satisfactory for evaluation. Category: Benign. Interpretation: Lymphocytes and few suggestive of granulomas, no necrosis. Other: Cellblock: The histological sections of the cellblock preparation show similar findings. Special stains for fungus (GMS) and acid fast bacteria (AFB- GRACE) are performed, and negative. Recommend correlation with culture findings. B. Lymph Node, 4R Right Paratracheal, EBUS transbronchial fine needle aspiration: Adequacy: Satisfactory for evaluation. Category: Benign. Interpretation: Lymphocytes and few suggestive of granulomas, no necrosis. Other: Cellblock: The histological sections of the cellblock preparation are hypocellular. C. Lymph Node, 11R Right Hilar, EBUS transbronchial fine needle aspiration: Adequacy: Unsatisfactory for evaluation. Category: Non-diagnostic. Interpretation: Specimen is inadequately cellular for diagnosis. Other: Cellblock: The histological sections of the cellblock preparation contain predominantly blood. Comment: No diagnostic evidence of malignancy identified in this limited sample. He also had endoscopy done on 07/08/2024 and FNA from the subcarinal lymph node and pathology is consistent with a benign finding. Final Diagnosis A. Lymph Node, Subcarinal, CT/US guided Fine Needle Aspiration: Adequacy: Satisfactory for evaluation. Category: Benign Interpretation: Mixed population of lymphocytes, compatible with reactive lymph node. Other: Cellblock: The histological sections of the cellblock preparation show similar findings. Interval History: Currently he is on nivolumab with good tolerance. He has skin itching involving the lower extremityand sometime back overall itching is improving. Denies any headache, chest pain, palpitation, abdominal pain or distention, bleeding, bruising, change in the bowel habits, nausea, vomiting. LABS/IMAGING: Results for orders placed or performed in visit on 11/23/24 COMPREHENSIVE METABOLIC PANEL Result Value Ref Range [...] ALT 22 10 - 50 U/L CBC Result Value Ref Range WBC 10.37 4.00 [...] 9.4 6.6 - 11.1 fL DIFFERENTIAL, AUTOMATED Result Value Ref Range WBC 10.37 4.00 [...] Absolute Basophils 0.04 0.00 - 0.20 K/uL *Note: Due to a large number of results and/or encounters for the requested time period, some results have not been displayed. A complete set of results can be found in Results Review. Result of the blood test done today are stable in acceptable range. Last CT scan was done on 09/07/2024 which shows no evidence of intrathoracic metastatic disease. REVIEW OF SYSTEMS: General: No Fever, chills, night sweats, or weight loss. HEENT: No change in visual acuity, blurred or double vision. No epistaxis, facial pain, nasal discharge or change in hearing. Denies dysphagia, no muscosal ulceration, or sores noted. Cardiovascular: No chest pain, MIRANDA, or palpitations Respiratory: No shortness of breath, cough, hemoptysis, or pleuritic chest pain Gastrointestinal: No abdominal pain, nausea, vomiting, diarrhea, rectal pain or bleeding Genitourinary: Denies Hematuria or dysuria Musculoskeletal: No bone pain Psychiatric: No vegetative signs of depression Endocrine: No symptoms of hypothyroidism or hyperglycemia Hematologic: No bleeding or lymph nodes noted As mentioned above, all of the systems were reviewed in full and are unremarkable. 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 Rimegepant Sulfate [...] solution 2.5 mg 2.5 mg Nebulizer PRN Social History Tobacco Use Smoking status: Former Average packs/day: 2.5 packs/day for 22.0 years (55.0 ttl pk-yrs) Types: Cigarettes Start date: 1961 Smokeless tobacco: Former Types: Snuff Tobacco comments: Quit cigarettes 1983 Vaping Use Vaping status: Never Used Substance Use Topics Alcohol use: Yes Comment: 1-2 beers twice a month Drug use: Never Review of patient's allergies indicates: Allergen Reactions Botox [Onabotulinumtoxina] Other (Please comment) Swallowing difficulty after injection Azelastine Unknown PHYSICAL EXAMINATION: General Appearance: Healthy appearing patient in no acute distress BP 149/83 (BP Site: Left Arm, BP Position: Sitting, BP Cuff Size: Large) | Pulse 74 | Temp 36.7 °C(98 °F) (Tympanic) | Wt 110.2 kg (243 lb) | SpO2 94% | BMI 35.88 kg/m² | BSA 2.32 m² Vitals reviewed. HEENT: No oral or pharyngeal masses, ulceration or thrush noted, no sinus tenderness. Neck is supple with no thyromegaly or JVD noted. Lymph Nodes: No lymphadenopathy noted in the occipital, pre and post auricular, cervical, supra andinfraclavicular, axillary, epitrochlear, inguinal, and popliteal region. Lungs/Thorax: Clear to auscultation, no accessory muscles of respiration being used. Heart: Regular rate and rhythm, normal S1, S2 Abdomen: Soft, nontender, bowel sounds present, no appreciable hepatosplenomegaly, no palpable masses Extremeties: Good pulses bilaterally, no peripheral edema. ASSESSMENT: 83-year-old male with past medical history significant for spinal stenosis, right knee arthritis, status post left knee replacement, history of chronic headache for last 15 years, occasional episode of nausea for last 5 years, because of spinal stenosis he has numbness in the lower extremity referred with the diagnosis of urothelial carcinoma. He initially presented with complaint of intermittenthematuria and was found to have ill-defined hypovascular filling defect in the right posterior upper pole calyx suspicious for urothelial carcinoma. Patient was seen by Dr. Edwards and underwent right-sided hand assisted laparoscopic radical nephroureterectomy, intravesical instillation of mitomycin-C. 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 Pathologic stage was pT3 pNx. Patient has a high-grade invasive urothelial carcinoma and will benefit from adjuvant treatment as per recommendation by up-to-date and NCCN guidelines. Because he has only1 kidney and issues with the numbness in the lower extremity, he is not a good candidate for cisplatin gemcitabine combination and the best option will be 1 year of nivolumab on every 2 weeks basis. Currently patient is receiving nivolumab. He completed so far 9 cycles. Follow-up PET scan done on 05/11/2024 unfortunately [...] urothelial cancer or immune related changes lymphadenopathy. On the PET scan there is a new metabolically active focus at the GE junction. Patient had upper endoscopy and endoscopic ultrasound and FNA of the lymph node donewhich is negative for malignancy. Most likely the finding on the PET scan may be reactive changes because of the immunotherapy. Nivolumab was resume on 07/20/2024. He also had episode of hypercalcemia and increasing creatinine. Blood pressure medications were adjusted and currently now he is on propranolol. He also received a dose of Zometa with improvement andnormalization of the calcium. PTH was 14 and PTH related protein was normal. Follow-up CT scan done on 09/07/2023 revealed no evidence of new disease or progression. Clinically he is doing well without any new symptoms complain. Overall skin rash is improving. Result of the recent blood tests are stable in acceptable range Discussed with the patient about diagnosis reviewed all the available blood tests and CT scan finding with them. PLAN: Continue nivolumab. He will return clinic for follow-up in 4 weeks with a PET scan. The patient voiced understanding of all of the above. All questions and concerns were addressed in an apparently satisfactory manner. Chandler Winter MD (This note was completed using the dictation program Fluency Direct. As such, there may be misspellings, word substitutions, or other variations that should not change the essence of the clinical content of this encounter note. If there is need for further clarification, please direct questions to me.) documented in this encounter Nursing Notes * Carlota Fish MED ASSIST - 11/23/2024 10:49 AM EDT Patient identifed by name and birthdate Do you have any concerns about pain management for today's visit? Yes. Patient instructed to discuss pain concerns with provider during the visit today Living Will or Advance Directive for Health Care as noted on the problem list. [facility] is a way you can talk to your provider on line through e-mail. Would you like to sign up? I can activate it for you? ALREADY ACTIVE Filed Vitals: 11/23/24 1047 BP: 149/83 Pulse: 74 Temp: 36.7 °C (98 °F) TempSrc: Tympanic SpO2: 94% Weight: 110.2 kg (243 lb) Patient was instructed to not get up on the exam table/exam chair until directed and assisted by their provider; patient is to remain seated in the chair/ wheelchair/ exam table/ exam chair for fall prevention and safety reasons. Patient is aware to have assistance to step down off exam table/exam chair with personnel. Patient voiced full comprehension of instructions. Pt reported having pain of a 5 in head and joints documented in this encounter Plan of Treatment Upcoming Encounters Date Type Department Care Team (Late st Contact Info) Description 12/03/2024 1:00 PM EDT Telemedicine Psychiatry Diogo Squires [address] [place] [phone] Princess Kwon [facility] [address] [facility] [address] 12/07/2024 9:00 AM EDT Laboratory Laboratory [facility] Cheri [place] [address] [place] [phone] Cheri [address] Sc[facility] [place] [address] 12/07/2024 10:00 AM EDT [facility] [address] [place] [phone] Cheri, Chair 1 Hem Onc [facility] [address] [facility] [place] [address] 2024 1:30 PM EDT PulmDiagnostic Pulmonary Function Lab, [facility] [address] [facility] [phone] [place], [address] [facility] [place] [address] 12/14/2024 8:45 AM EDT Imaging Radiology [address] [facility] [place] [phone] 12/21/2024 9:00 AM EDT Laboratory Laboratory [facility] Cheri [place] [address] [place] [phone] Hamida Alonzo [address] [place] [address] 12/21/2024 9:30 AM EDT Office Visit Hematology/Oncology [facility] Cheri [place] [address] [place] [phone] Renea Easley CRNP [address] [facility] [place] [address] 12/21/2024 10:00 AM EDT Hem/Onc Treatment Hematology/Oncology Treatment, [place] [address] [place] [phone] Park, Chair 4 Hem Onc [address] [place] [address] 03/15/2025 3:00 PM EDT Procedure Only Urology, [facility] [address] [place] [phone] Roberto Edwards MD [address] [place] [address] 04/23/2025 10:40 AM EDT Telemedicine Neurology [address] [place] [address] Nan Miller MD [address] [place], [place] [phone] 04/29/2025 8:00 AM EDT Office Visit Pulmonary Medicine, [facility] [address] [place], [place] [phone] Luigi Bass MD [address] [facility] [place] [id number] 05/25/2025 9:00 AM EDT Office Visit Family Practice [facility] [address] [place] [address] Rema Carpenter CRNP [address] [place] [address] 06/08/2025 3:30 PM EDT Procedure Only Urology, [facility] [address] [place] [phone] Roberto Edwards MD [address] [place] [address] 06/17/2025 2:20 PM EDT Office Visit Nephrology, [address] [place] [address] Reece Cross MD [address] [place] [address] 11/23/2025 9:40 AM EDT Office Visit [facility] [address] [place] [address] Henrik Campbell DO [address] [place] [address] Scheduled Orders Name Type Priority Associated Diagnoses Orde r Schedule PET CT SKULL BASE TO MID-THIGH FDG Medical Imaging Routine Urothelial carcinoma of kidney, right (HCC) Expected: 12/23/2024, Expires: 12/23/2025 Scheduled Procedures Name Priority Associated Diagnoses Date/Ti [...] Additional history exists CKD PHOS USE SMARTSET 16951 08/03/2025 08/03/2024, 1 09/20/2023 CKD HGB USE SMARTSET 13492 11/23/202511/23, 11/23/2024, 11/09/2024, Additional history exists HbA1c 11/23/2025 11/23/2024, 03/0 10/2024, 05/04/2024, Additional history exists Colonoscopy 01/21/2027 [...] this encounter Medical Devices Implanted Type Area Agricultural Commodities Grader Device Identifier Shelf Expiration Date Model / Serial / Lot Lens Intraoc 19.5 - [id number] - [id number] Implanted:Qty : 1 on 12/07/2021 by Eulogio Barrios MD at OR [facility] Left: Eye [employer] 07/25/2026 [id number] / [id number] / [id number] Lens Intraoc 19.5 - [id number] - [id number] Implanted:Qty : 1 on 12/19/2021 by Eulogio Barrios MD at OR [facility] Right: Eye [employer] 07/25/2026 [id number] / [id number] / [id number] Port Implant W8f Poly Cath - [id number] Implanted:Qty : 1 on 01/08/2024 by Austin Ervin MD at OR [facility] Right: Chest CR BARD : PERIPHERAL VASCULAR [id number] 01/23/2025 [id number] / / [id number] documented as of this encounter Visit Diagnoses Diagnosis Urothelial carcinoma of kidney, right (HCC)- Primary documented in this encounter Advance Directives Documents on File Type Date Recorded 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
--- OUTSIDE RECORDS SUMMARY | 2025-01-05 06:48 | External Medical Summary | Summary of Care ---
Author Name Unknown Organization [facility] Address [address] [place] [address] Phone [phone] Care Team Providers Care Blasting Entry Specialist Name Role Phone Ross Campbellbrian Brandgabbi Primary Care Provider Reason for Visit * Reason Onset Date Comments Advice 11/19/2024 Encounter Details Date Type Department Care Team (Late st Contact Info) Description 11/19/2024 Telephone Urology Woody Serrano [address] [place] [address] [place] [address] Roberto Edwards MD [address] [place] [address] Advice Allergies Active Allergy Reactions Criticality Noted [...] Budesonide 32 MCG/ACT Nasal Suspension Administer 1 [place] into nostril in the morning. Active Rimegepant [...] No 07/09/2024 Does the household have a [facility] source [facility] income? (Household - [...] encounter Miscellaneous Notes * Telephone Encounter - Cheryl Oscar OSA - 11/20/2024 12:17 PM EDT Pts returned a call back for Radha and asks to be called back at [phone] * Telephone Encounter - Radha Sanchez LPN [...] HM * Telephone Encounter - Nilda Cerrato home health clinician - 11/19/2024 10:35 AM EDT Incoming call fro patient's stating that Josiah was supposed to be prescribed an antibiotic. She is stating that the pharmacy did not receive a prescription. Please review, reach out to patient and advise if appropriate. Thank you, Nilda Cerrato Welder/Fabricator [facility] 11/19/2024,10:37 AM documented in this encounter Plan of Treatment Upcoming Encounters Date Type Department Care Team (Late st Contact Info) Description 11/23/2024 8:30 AM EDT Laboratory Laboratory, [facility] [address] [facility] [place] [phone] Hamida Castillo [facility] [address] [facility] [place] [address] 11/23/2024 9:00 AM EDT Office Visit Family Practice [facility] [address] [place] [address] Henrik Campbell DO [facility] [place] [address] 11/23/2024 11:00 AM EDT Office Visit Hematology/Oncology [facility] [place] [address] [facility] [phone] Chandler Winter MD [address] [place] [address] 11/23/2024 11:30 AM EDT Hem/Onc Treatment Hematology/Oncology Treatment, [place] [address] [place], [place] [phone] Cheri, Chair 3 Hem Onc [address] [address] 12/03/2024 1:00 PM EDT Telemedicine Psychiatry Diogo Squiers [address] [place] [phone] Princess Kwon MD [address] [facility] [place] [address] 2024 1:30 PM EDT PulmDiagnostic Pulmonary Function Lab, [facility] [address] [place] [phone] West, P[address] [place] [address] 12/21/2024 9:30 AM EDT Office Visit Hematology/Oncology [facility] [address] [place], [place] [phone] Renea Easley CRNP [address] [facility] [place] [id number] 03/15/2025 3:00 PM EDT Procedure Only Urology, [facility] [address] [place] [phone] Roberto Edwards MD [address] [id number] 04/23/2025 10:40 AM EDT Telemedicine Neurology Di[address] [place] [address] Nan Miller MD [address] [place] [address] 04/29/2025 8:00 AM EDT Office Visit Pulmonary Medicine, [facility] [address] [place] [phone] Luigi Bass MD [address] [place] [facility] [place] [address] 06/08/2025 3:30 PM EDT Procedure Only Urology, [facility] [address] [place] [phone] Roberto Edwards MD [address] [place] [address] 06/17/2025 2:20 PM EDT Office Visit Nephrology, [facility] [address] [place] [address] Reece Cross MD [address] [place], [place] [address] Scheduled Orders Name Type Priority Associated Diagnoses [...] Additional history exists CKD PHOS USE SMARTSET 37965 08/03/2025 08/03/2024, 1 09/20/2023 HbA1c 10/26/2025 10/26/2024, 04/2024, 11/06/2023, Additional history exists CKD HGB USE SMARTSET 18162 11/09/202511/09, 11/09/2024, 10/26/2024, Additional history exists Colonoscopy 01/21/2027 01/22/2024, 2 [...] this encounter Medical Devices Implanted Type Area Range Aide Device Identifier Shelf Expiration Date Model / Serial / Lot Lens Intraoc 19.5 - [id number] - [id number] Implanted:Qty : 1 on 12/07/2021 by Eulogio Barrios MD at OR [facility] Left: Eye [employer]CH [employer] LOMB 07/25/2026 [id number] / [id number] / [id number] Lens Intraoc 19.5 - [id number] - [id number] Implanted:Qty : 1 on 12/19/2021 by Eulogio Barrios MD at OR [facility] Right: Eye BA[employer]CH [employer] LOMB 07/25/2026 [id number] / [id number] / [id number] Port Implant W8f Poly Cath - [id number] Implanted:Qty : 1 on 01/08/2024 by Austin Ervin MD at OR [facility] Right: Chest CR BARD : PERIPHERAL VASCULAR [id number] 01/23/2025 [id number] / / [id number] documented as of this encounter Visit Diagnoses Diagnosis Urothelial carcinoma of kidney, 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) Elevated prostate specific antigen (PSA) Disorder of kidney and ureter, unspecified Hematuria, gross Gross hematuria documented in this encounter Advance Directives Documents on File Type Date Recorded 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
--- OUTSIDE RECORDS SUMMARY | 2025-01-05 06:48 | External Medical Summary | Summary of Care ---
Author Name Unknown Organization [facility] Address [address] [place] [address] Phone [phone] Care Team Providers Care Charge Master Analyst Name Role Phone Ross Campbellbrian Brandgabbi Primary Care Provider Reason for Visit * Reason Onset Date Comments Advice 11/19/2024 Encounter Details Date Type Department Care Team (Late st Contact Info) Description 11/19/2024 Telephone Urology Woody Serrano [address] [place] [address] [place] [address] Roberto Edwards MD [address] [place] [address] Advice Allergies Active Allergy Reactions Criticality Noted [...] Budesonide 32 MCG/ACT Nasal Suspension Administer 1 [place] into nostril in the morning. Active Rimegepant [...] No 07/09/2024 Does the household have a [facility] source of income? (Household - for [...] and asks to be called back at [phone] * Telephone Encounter - Radha Sanchez LPN [...] HM * Telephone Encounter - Nilda Cerrato, furniture assembler - 11/19/2024 10:35 AM EDT Incoming call fro patient's stating that Josiah was supposed to be prescribed an antibiotic. She is stating that the pharmacy did not receive a prescription. Please review, reach out to patient and advise if appropriate. Thank you, Nilda Cerrato Nurse Practitioner Manager [facility] 11/19/2024,10:37 AM documented in this encounter Plan of Treatment Upcoming Encounters Date Type Department Care Team (Late st Contact Info) Description 11/23/2024 8:30 AM EDT Laboratory Laboratory, [facility] [address] [place] [phone] Hamida Castillo [facility] [address] [place] [address] 11/23/2024 9:00 AM EDT Office Visit Family Practice [facility] [address] [place] [address] Henrik Campbell DO [address] [place] [address] 11/23/2024 11:00 AM EDT Office Visit Hematology/Oncology [facility] [address] [facility] [place] [phone] Chandler Winter MD [address] [facility] [place] [address] 11/23/2024 11:30 AM EDT Hem/Onc Treatment Hematology/Oncology Treatment, [place] [facility] [address] Cheri, Chair 3 Hem Onc [address] [place] [address] 12/03/2024 1:00 PM EDT Telemedicine Psychiatry Diogo Squires [address] [place] [phone] Princess Kwon MD [address] [facility] [place] [address] 2024 1:30 PM EDT PulmDiagnostic Pulmonary Function Lab, [facility] [address] [place] [phone] West, [address] [place] [address] 12/21/2024 9:30 AM EDT Office Visit Hematology/Oncology [facility] [address] [place] [phone] Renea Easley CRNP [address] [facility] [place] [phone] 03/15/2025 3:00 PM EDT Procedure Only Urology, [facility] [address] [place] [phone] Roberto Edwards MD [address] [place] [address] 04/23/2025 10:40 AM EDT Telemedicine Neurology Diogo [address] [place] [address] Nan Miller MD [address] [place] [address] 04/29/2025 8:00 AM EDT Office Visit Pulmonary Medicine, [facility] [address] [place] [phone] Luigi Bass MD [address] [facility] [address] 06/08/2025 3:30 PM EDT Procedure Only Urology, [facility] [address] [place] [phone] Roberto Edwards MD [address] [place] [address] 06/17/2025 2:20 PM EDT Office Visit Nephrology, [facility] [address] [place] [address] Reece Cross MD [address] [place] [address] Scheduled Orders Name Type Priority Associated Diagnoses [...] Additional history exists CKD PHOS USE SMARTSET 17839 08/03/2025 08/03/2024, 1 09/20/2023 HbA1c 10/26/2025 10/26/2024, 09/0 04/2024, 11/06/2023, Additional history exists CKD HGB USE SMARTSET 64044 11/09/202511/09, 11/09/2024, 10/26/2024, Additional history exists Colonoscopy [...] this encounter Medical Devices Implanted Type Area Feltmaker Device Identifier Shelf Expiration Date Model / Serial / Lot Lens Intraoc 19.5 - [id number] - [id number] Implanted:Qty : 1 on 12/07/2021 by Eulogio Barrios MD at OR [facility] Left: Eye [employer]CH [employer] LOMB 07/25/2026 [id number] / [id number] / [id number] Lens Intraoc 19.5 - [id number] - [id number] Implanted:Qty : 1 on 12/19/2021 by Eulogio Barrios MD at OR [facility] Right: Eye BAUSCH [employer] LOMB 07/25/2026 [id number] / [id number] / [id number] Port Implant W8f Poly Cath - [id number] Implanted:Qty : 1 on 01/08/2024 by Austin Ervin MD at OR [facility] Right: Chest CR BARD : PERIPHERAL VASCULAR [id number] 01/23/2025 [id number] / / [id number] documented as of this encounter Visit Diagnoses Diagnosis Urothelial carcinoma of kidney, 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
--- OUTSIDE RECORDS SUMMARY | 2025-01-05 06:49 | External Medical Summary | Summary of Care ---
Author Name Unknown Organization [facility] Address [address] [place] [address] Phone [phone] Care Team Providers Care Land Reclamation Specialist Name Role Phone Ross Campbellbrian Brandgabbi Primary Care Provider Reason for Visit * Reason Comments Cystoscopy Encounter Details Date Type Department Care Team (Late st Contact Info) Description 11/17/2024 1:00 PM EDT Office Visit Urology, [facility] [address] [facility] [place] [address] Roberto Edwards MD [address] [place] [address] Urothelial carcinoma of kidney, right (HCC)*; BPH with obstruction/lower urinary tract symptoms; Elevated prostate specific antigen (PSA); Disorder of kidney and ureter, unspecified Allergies Active Allergy Reactions Criticality Noted Date Comments Azelastine Unknown 02/01/2021 Onabotulinumtoxina Other (Please comment) High 01/20/2021 Swallowing difficulty after injection documented as of this encounter (statuses as of 11/17/2024) Medications VITAMIN B-12 100 MCG PO TABS [...] Budesonide 32 MCG/ACT Nasal Suspension Administer 1 [place] into nostril in the morning. Active Rimegepant [...] g 04/20/20 24 025 Discontin ued(Refil l) Tamsulosin HCl 0.4 MG Oral Capsule (Flomax)Indication s:BPH with obstruction/lower urinary tract symptoms TAKE ONE CAPSULE BY MOUTH IN THE MORNING 90 Capsule 10/26/19 25 025 Discontin ued(Refil l) Finasteride 5 MG Oral Tablet (Proscar)Indicatio ns:BPH with obstruction/lower urinary tract symptoms Take 1 Tablet by mouth in the morning. 90 Tablet 11/11/19 25 025 Discontin ued(Refil l) Hospital, Clinic, [...] as of this encounter (statuses as of 11/17/2024) Active Problems Problem Noted Date Diagnosed Date [...] as of this encounter (statuses as of 11/17/2024) Resolved Problems Problem Noted Date Diagnosed Date [...] as of this encounter (statuses as of 11/17/2024) Immunizations Name Administration Dates Next Due COVID-19 mRNA, LNP-s, No Pre serve, 2-Dose Series ([employer]) 07/17/2021,11/22/2020,10/26/2020 Pneumococcal Conjugate Vacc, 13 Valent (Prevnar) [...] documented in this encounter Progress Notes * Roberto Edwards MD - 11/17/2024 1:00 PM EDT [id number] PCP: BENY CAMPBELL [address] [place] [address] [phone] Josiah Gutiérrez is a 83 year old male, who presents for cystoscopy for evaluation of his history of upper tract urothelial carcinoma. Patient's past notes and pathology are reviewed. Patient's negative biopsies of his PET positive disease at the GE junction is appreciated. He has been on immunotherapy per Medical Oncology due to high-risk urothelial malignancy. It has been a year since his nephroureterectomy. Patient believes he has an upcoming PET scan planned with Oncology in the next few weeks. Patient remains on maximal medical therapy with finasteride and tamsulosin. ED: Using sildenafil with mixed results. BPH: Patient is being seen for BPH [...] stent August 2023 positive for urothelial mass. Right-sided hand assisted laparoscopic nephroureterectomy November 2023: Postoperative nivolumab provided by Medical Oncology. Final Diagnosis A. Right-sided hand-assisted laparoscopic radical nephroureterectomy: Superficially invasive papillary urothelial carcinoma, high-grade (see synoptic data) No lymphovascular or perineural invasion seen Margins are uninvolved in sections examined Pathologic stage (AJCC 8th edition): pT3, pN0 B. Lymph nodes, right periureteral tissue, biopsy: Two lymph nodes, no carcinoma seen (0/2) Mass size and location: 4 x 3 x 1.8 cm , location lower pole-renal pelvis , confined to the renal parenchyma away from the renal capsule by 0.5 cm ,away from vascular margin by 3 cm, away from sinus by 1 cm ,and away from the distal ureter by 24 cm Mass appearance and focality: well-circumscribed, round with white friable necrotic material ( 90% ) Tumor involves renal pelvis and possible renal parenchyma PET scan April of 2024: IMPRESSION: 1. New metabolically-active mediastinal and bilateral hilar lymphadenopathy. 2. New metabolically-active focus at the gastroesophageal junction. Further evaluation can be obtained with endoscopy. CT chest Aug 2024: IMPRESSION: 1. No evidence of pneumonia, pulmonary edema, or pulmonary fibrosis. 2. Scattered benign-appearing pulmonary nodules are stable since 11/04/2020 and likely sequela of prior infection/inflammation. 3. No compelling evidence of intrathoracic metastasis identified on noncontrast chest CT. 4. Additional findings as above. PSA Results: Lab Results Component Value Date/Time PSA - [facility] 1.18 03/23/2024 08:30 AM PSA - [facility] 6.48 (H) 07/30/2023 11:38 AM PSA - [facility] 1.61 03/23/2022 02:35 PM PSA - [facility] 6.85 (H) 05/09/2020 12:32 PM PSA - [facility] 1.70 07/13/2011 09:26 AM PSA - [facility] 1.49 07/27/2010 09:24 AM PSA SCREENING 2.70 08/28/2013 09:31 AM PSA SCREENING 2.53 09/04/2012 11:54 AM PSA SCREENING 0.53 07/19/2009 09:29 AM Creatinine Results: Lab Results Component Value Date/Time CREATININE - [facility] 1.7 (H) 11/09/2024 07:22 AM CREATININE - [facility] 1.8 (H) 10/26/2024 10:32 AM CREATININE - [facility] 1.6 (H) 10/12/2024 10:36 AM CREATININE - [facility] 0.82 09/24/2022 12:00 AM CREATININE - [facility] 0.8 05/28/2022 12:00 AM CREATININE - [facility] 0.8 05/25/2021 12:00 AM CREATININE - [facility] 0.9 07/28/2020 09:03 AM CREATININE - [facility] 0.8 05/09/2020 12:32 PM CREATININE - [facility] 0.8 01/17/2017 01:18 PM CREATININE, RANDOM URINE - [facility] 80 08/03/2024 07:26 AM CREATININE, RANDOM URINE - [facility] 115 05/04/2024 07:54 AM CREATININE, RANDOM URINE - [facility] 148 11/06/2023 08:58 AM Current Outpatient Medications Medication Sig Dispense Refill [...] times a day as needed for Dizziness. (Patient not taking: Reported on 01/08/2024) 60 Tablet 1 Esomeprazole Magnesium 20 MG Oral Capsule Delayed Release (NexIUM) Take by mouth 1 Capsule daily before breakfast . 90 Capsule 3 Budesonide 32 MCG/ACT Nasal Suspension Administer 1 [place] into nostril in the morning. (Patient nottaking: Reported on 10/19/2024) Rimegepant Sulfate 75 MG Oral Tablet Disintegrating 75 mg. Triamcinolone Acetonide 0.1 % External Ointment (Aristocort) Apply topically to affected area 2 times a day. To affected area. 454 g 3 Metoclopramide HCl 10 MG Oral Tablet (Reglan) Take 1 Tablet by mouth every 6 hours as needed for Nausea. (Patient not taking: Reported on 10/19/2024) 30 Tablet 0 Docusate Sodium 100 MG Oral Capsule (Colace) Take 1 Capsule by mouth in the morning and 1 Capsule before bedtime. (Patient taking differently: Take 1 Capsule by mouth in the morning and 1 Capsule before bedtime. As needed.) 30 Capsule 1 Ondansetron 4 MG Oral Tablet Disintegrating (Zofran) Place 1 Tablet on tongue every 6 hours as needed for Nausea. (Patient not taking: Reported on 01/08/2024) 30 Tablet 1 Metaxalone 800 MG Oral Tablet (Skelaxin) TAKE 1 TABLET BY MOUTH AT BEDTIME AND 1/2 TO 1 TABLET UP TO AN ADDITIONAL TWO TIMES DAILY NEEDED FOR NECK AND HEAD PAIN. 90 Tablet 11 Qulipta 10 MG Oral Tablet (Atogepant) Take by mouth. (Patient not taking: Reported on 07/27/2024) Lidocaine-Prilocaine 2.5-2.5 % External Cream (Emla) Apply topically to affected area as needed forOther (none). APPLY TO SKIN OVER MEDIPORT & COVER 1HR PRIOR TO ACCESSING. 30 g 0 Lisinopril-hydroCHLOROthiazide 20-12.5 MG Oral Tablet TAKE 1 TABLET BY MOUTH ONCE DAILY (Patient not taking: Reported on 07/27/2024) 90 Tablet 1 buPROPion HCl 100 MG Oral Tablet (Wellbutrin) Take 0.5 Tablets by mouth in the morning and 0.5 Tablets before bedtime. 30 Tablet 5 Magic Swizzle (Cxhmldmsz-Devsxtgu-Xryhim) oral solution Swish and spit 15 mL in the morning and 15 mL at noon and 15 mL in the evening and 15 mL before bedtime. (Patient not taking: Reported on 06/29/2024) 240 mL 0 Propranolol HCl 20 MG Oral Tablet (Inderal) Take 1 tablet at 6 am and 1 tablet at 2 pm daily 60 Tablet 5 Mirtazapine 15 MG Oral Tablet (Remeron) Take 1 Tablet by mouth at bedtime. 30 Tablet 5 [START ON 11/23/2024] LORazepam 0.5 MG Oral Tablet (Ativan) Take 0.5 Tablets by mouth every night atbedtime. NO EARLY REFILLS Do not start before November 23, 2024. 15 Tablet 3 Tamsulosin HCl 0.4 MG Oral Capsule (Flomax) TAKE ONE CAPSULE BY MOUTH IN THE MORNING 90 Capsule 0 Finasteride 5 MG Oral Tablet (Proscar) Take 1 Tablet by mouth in the morning. 90 Tablet 0 Current Facility-Administered Medications Medication Dose Route Frequency Provider Last Rate Last Admin Albuterol Sulfate (Proventil) (2.5 MG/3ML) 0.083% inhalation solution 2.5 mg 2.5 mg Nebulizer PRN 2.5 mg at 06/12/24 1302 Albuterol Sulfate (Proventil) (5 MG/ML) 0.5% *conc* inhalation solution 2.5 mg 2.5 mg Nebulizer PRN Review of patient's allergies indicates: Allergen Reactions Botox [Onabotulinumtoxina] Other (Please comment) Swallowing difficulty after injection Azelastine Unknown Social History: Social History Tobacco Use Smoking status: Former Average packs/day: 2.5 packs/day for 22.0 years (55.0 ttl pk-yrs) Types: Cigarettes Start date: 1961 Smokeless tobacco: Former Types: Snuff Tobacco comments: Quit cigarettes 1983 Chew 1984 Substance Use Topics Alcohol use: Yes Comment: 1-2 beers twice a month Vaping/E-Cigarette Use Vaping/E-Cigarette Use Never User Vaping/E-Cigarette Substances Vaping/E-Cigarette Devices Past Surgical History: Procedure Laterality Date BRONCHOSCOPY, DIAGNOSTIC N/A 06/08/2024 BRONCHOSCOPY DIAGNOSTIC WITH OR WITHOUT WASHING performed by Lois Rodas MD [place] [place]ONOSCOPY, DIAGNOSTIC (RECTUM) 06/23/2015 adenomatous & hyperplastic polyps, diverticulosis, repeat 3 yrs/COLONOSCOPY FLEXIBLE PROXIMAL DIAGNOSTIC performed by Delfina Butcher DO at [facility] COLONOSCOPY, DIAGNOSTIC (RECTUM) 07/23/2018 adenomatous polyps, diverticulosis, repeat 3 yrs/COLONOSCOPY FLEXIBLE PROXIMAL DIAGNOSTIC performedby Delfina Butcher DO at [facility] COLONOSCOPY, DIAGNOSTIC (RECTUM) 08/03/2021 adenomatous, hyperplastic & serrated adenomatous polyps, diverticulosis, repeat 3 yrs / COLONOSCOPY FLEXIBLE PROXIMAL DIAGNOSTIC performed by Delfina Butcher DO at [facility] COLONOSCOPY, DIAGNOSTIC (RECTUM) 01/22/2024 moderate diverticulosis/hemorrhoids/one polyp, removed not retrieved/COLONOSCOPY FLEXIBLE PROXIMAL DIAGNOSTIC performed by Delfina Butcher DO at [facility] CYSTOURETERO W/BIOPSY Right 09/02/2023 CYSTOURETHROSCOPY URETEROSCOPY WITH BIOPSY AND OR FULGURATION LESION performed by Roberto Edwards MD at [facility] CYSTOURETERO W/LITHOTRIPSY 10/13/2008 EGD, FLEXIBLE, DIAGNOSTIC 09/24/2013 ESOPHAGOGASTRODUODENOSCOPY (EGD), FLEXIBLE, TRANSORAL, DIAGNOSTIC performed [facility] [place]GD, FLEXIBLE, DIAGNOSTIC 01/04/2014 ESOPHAGOGASTRODUODENOSCOPY (EGD), FLEXIBLE, TRANSORAL, DIAGNOSTIC performed [facility] [place]GD, FLEXIBLE, DIAGNOSTIC 06/09/2015 Barretts, repeat 1 yr/ESOPHAGOGASTRODUODENOSCOPY (EGD), FLEXIBLE, TRANSORAL, DIAGNOSTIC performed by Delfina Butcher DO at [facility] EGD, FLEXIBLE, DIAGNOSTIC 06/12/2016 Barretts, duodenal lipoma, repeat 1 yr/ESOPHAGOGASTRODUODENOSCOPY (EGD), FLEXIBLE, TRANSORAL, DIAGNOSTIC performed by Delfina Butcher DO at [facility] EGD, FLEXIBLE, DIAGNOSTIC 08/07/2017 Barretts, repeat 3 yrs/ESOPHAGOGASTRODUODENOSCOPY (EGD), FLEXIBLE, TRANSORAL, DIAGNOSTIC performed by Delfina Butcher DO at [facility] EGD, FLEXIBLE, DIAGNOSTIC 07/23/2018 Barretts w/ LGD/ESOPHAGOGASTRODUODENOSCOPY (EGD), FLEXIBLE, TRANSORAL, DIAGNOSTIC performed by Delfina Butcher DO at [facility] EGD, FLEXIBLE, DIAGNOSTIC 07/28/2019 Barretts, gastritis, duodenal polyp, repeat 1 yr/ESOPHAGOGASTRODUODENOSCOPY (EGD), FLEXIBLE, TRANSORAL, DIAGNOSTIC performed by Delfina Butcher DO at [facility] EGD, FLEXIBLE, DIAGNOSTIC 10/28/2020 Barretts, duodenal lipoma, repeat 1 yr / [facility] EGD, FLEXIBLE, DIAGNOSTIC 08/03/2021 Barretts, repeat 3 yrs / ESOPHAGOGASTRODUODENOSCOPY (EGD), FLEXIBLE, TRANSORAL, DIAGNOSTIC performed by Delfina Butcher DO at [facility] EGD, FLEXIBLE, DIAGNOSTIC 01/22/2024 biopsies show mild inflammatory changes/repeat 3 years/ESOPHAGOGASTRODUODENOSCOPY (EGD), FLEXIBLE, TRANSORAL, DIAGNOSTIC performed by Delfina Butcher DO at [facility] EGD, W/ENDOSCOPIC US 05/20/2013 UPPER GI ENDOSCOPY ENDOSCOPIC ULTRASOUND performed by Delfina Butcher DO at [facility] EGD, W/ENDOSCOPIC US 06/07/2014 fatty liver, lipoma of the duodenum, Barretts, repeat 1 yr/ESOPHAGOGASTRODUODENOSCOPY (EGD), FLEXIBLE, TRANSORAL, ENDOSCOPIC ULTRASOUND performed by Delfina Butcher DO at [facility] EGD, W/ENDOSCOPIC US 06/09/2015 fatty liver, duodenal lipoma/ESOPHAGOGASTRODUODENOSCOPY (EGD), FLEXIBLE, TRANSORAL, ENDOSCOPIC ULTRASOUND performed by Delfina Butcher DO at [facility] EGD, W/ENDOSCOPIC US 07/08/2024 one enlarged lymph node subcarinal mediastinum/fatty liver/gastritis/biopsies show inflammatory changes, Evans's/recall 3 years/ESOPHAGOGASTRODUODENOSCOPY (EGD), FLEXIBLE, TRANSORAL, ENDOSCOPIC ULTRASOUND performed by Delfina Butcher DO at [facility] INFORMATION Left L TKA. INJECT DX/THER SUBSTANCE INTERLAMINAR LUMBAR/SACRAL W IMAGE GUIDE 05/13/2024 INJECTION SPINE LUMBAR OR SACRAL performed by Hugo Luna MD at [facility] INSER TUNN ACC DEV;5 YRS/OLDER Right 01/08/2024 INSERT TUNNELED CENTRAL VENOUS ACCESS WITH SUBQ PORT performed by Austin Ervin MD at [facility] KNEE ARTHROSCOPY/SURGERY LAPARO REMOVE K/URETER Right 11/27/2023 LAPAROSCOPIC NEPHRECTOMY TOTAL URETERECTOMY performed by Roberto Edwards MD at [facility] REMOVE CATARACT, INSERT LENS PROSTH Left 12/07/2021 Left EXTRACAPSULAR CATARACT REMOVAL WITH INTRAOCULAR LENS performed by Eulogio Barrios MD at [facility] REMOVE CATARACT, INSERT LENS PROSTH Right 12/19/2021 Right EXTRACAPSULAR CATARACT REMOVAL WITH INTRAOCULAR LENS performed by Eulogio Barrios MD at [facility] SINUS SURGERY PROCEDURE NEC 1996 Past Medical History: Diagnosis Date Allergic rhinitis Evans's esophagus 09/24/2013 Chronic sinusitis Headache(784.0) chronic frontal headaches lesion under left arm Other ringworm-left cheek Rash Nec Patient Active Problem List Diagnosis BPH with obstruction/lower urinary tract symptoms Other specified disorder of penis Frequent headaches Allergic rhinitis Evans's esophagus HTN, goal below 140/90 Chronic tension-type headache, intractable Lumbago-sciatica due to displacement of lumbar intervertebral disc Anxiety state Mild intermittent asthma Status post functional endoscopic sinus surgery (FESS) Gastroesophageal reflux disease Intractable chronic migraine without aura and without status migrainosus Cervicalgia Bilateral occipital neuralgia FAHAD (generalized anxiety disorder) Prediabetes Major depressive disorder, recurrent episode, moderate (HCC) Medical home patient encounter Urothelial carcinoma of kidney, right (HCC) QT prolongation Hypercalcemia Chronic kidney disease, stage 3b (HCC) Male : see HPI Cystoscopy Procedure Note: Patient was properly identified and appropriate consent was confirmed. Risks and benefits of the procedure were reviewed and the patient was prepped and draped in the standard fashion for the procedure. A well lubricated 16 Wolof flexible cystoscope was introduced through the meatus into the urethra. Urethra demonstrated no abnormalities. Prostatic urethra demonstrated significant obstructive lateral lobe hypertrophy. Bladder neck was visualized and bladder was entered. Sterile saline irrigation was used to distend the bladder which was noted to have no tumors, stones or mucosal abnormalities and significant retained postvoid residual with grade 3 trabeculation with cellules. Bladder was completely inspected including retroflexion of the scope. Ureteral orifices were noted to be normal on the left, surgically absent on the right. After this was completed the cystoscope was removed. Patient tolerated the procedure well without complications or difficulties. Mail Deliverer was present for entire procedure. Perioperative Bactrim was provided. Impression/Plan: 83-year-old male with a history of high-grade right-sided urothelial malignancy, likely extrarenal metastases managed with immunotherapy. We are pleased with the lack of bladder recurrence after a year. Will move cystoscopy out to 4 months. If upcoming PET scan as planned this should suffice for intra-abdominal evaluation for recurrence. Defer continued ongoing Medical Oncology therapy to their service. Continue maximal medical therapy with finasteride and tamsulosin. Will hold on consideration of more aggressive management of the patient's bladder outlet obstruction noted on cystoscopy considering the patient's ongoing comorbidities. Patient vocalizes good understanding of the treatment plan. Roberto Edwards MD 7:39 AM 11/17/2024 documented in this encounter Nursing Notes * Rema Swan LPN - 11/17/2024 1:03 PM EDT Patient presents for cystoscopy. Consent signed. documented in this encounter Plan of Treatment Upcoming Encounters Date Type Department Care Team (Late st Contact Info) Description 11/23/2024 8:30 AM EDT [facility] [address] [place] [phone] Hamida Castillo [address] [place] [address] 11/23/2024 9:00 AM EDT Office Visit Family Practice [facility] [address] [place] [address] Beny Campbell DO [address] [place] [address] 11/23/2024 11:00 AM EDT Office Visit Hematology/Oncology [facility] [address] [place] [phone] Chandler Winter MD [address] [place] [address] 11/23/2024 11:30 AM EDT Hem/Onc Treatment Hematology/Oncology Treatment, [place] [address] [place] [address] Cheri, Chair 3 Hem Onc [address] [place] [address] 12/03/2024 1:00 PM EDT Telemedicine Psychiatry Diogo Squires [address] [place] [phone] Princess Kwon MD [address] [facility] [place] [address] 2024 1:30 PM EDT PulmDiagnostic Pulmonary Function Lab, [facility] [address] [facility] [place] [phone] [place], [address] [place] [address] 12/21/2024 9:30 AM EDT Office Visit Hematology/Oncology [facility] [address] [place] [address] Renea Easley CRNP [address] [facility] [place] [address] 04/23/2025 10:40 AM EDT Telemedicine Neurology [address] [place] [address] Nan Miller MD [address] [facility] [place] [id number] 04/29/2025 8:00 AM EDT Office Visit Pulmonary Medicine, [facility] [address] [place] [address] Luigi Bass MD [address] [facility] [place] [address] 06/08/2025 3:30 PM EDT Procedure Only Urology, [facility] [address] [place] [phone] Roberto Edwards MD [address] [place] [id number] 06/17/2025 2:20 PM EDT Office Visit Nephrology, [facility] [address] [facility] [place] [address] Reece Cross MD [address] [facility] [place] [address] Scheduled Orders Name Type Priority Associated Diagnoses Orde r Schedule CYSTOSCOPY Procedures Routine Urothelial carcinoma of kidney, right (HCC) Ordered: 11/17/2024 Scheduled Procedures Name Priority Associated Diagnoses Date/Ti me ESOPHAGOGASTRODUODENOSCOPY ( EGD), FLEXIBLE, TRANSORAL, DIAGNOSTIC Recall Evans's esophagus with esophagitis Health Maintenance Due Date Last Done Comments Adult Wellness Visit 12/16/2019 12/15/2018 Depression Monitoring 12/22/2024 12/23/2023 Albumin/Creatinine Ratio 05/04/2025 024, 11/06/2023, 03/22/2023, Additional history exists COVID-19 Vaccine ( season) 2025 11/03/2024, 07/17/2021, 11/22/2020, Additional history exists GFR 05/12/2025 11/09/2024, 03/0 10/2024, 10/12/2024, Additional history exists CKD PHOS USE SMARTSET 93710 08/03/2025 08/03/2024, 1 09/20/2023 HbA1c 10/26/2025 10/26/2024, 09/0 04/2024, 11/06/2023, Additional history exists CKD HGB USE SMARTSET 67326 11/09/202511/09, 11/09/2024, 10/26/2024, Additional history exists Colonoscopy [...] encounter Medical Devices Implanted Type Area Assistant Boiler Operator Device Identifier Shelf Expiration Date Model / Serial / Lot Lens Intraoc 19.5 - [id number] - [id number] Implanted:Qty : 1 on 12/07/2021 by Eulogio Barrios MD at [facility] Left: Eye [employer] 07/25/2026 [id number] / [id number] / [id number] Lens Intraoc 19.5 - [id number] - [id number] Implanted:Qty : 1 on 12/19/2021 by Eulogio Barrios MD at [facility] Right: Eye [employer] 07/25/2026 [id number] / [id number] / [id number] Port Implant W8f Poly Cath - [id number] Implanted:Qty : 1 on 01/08/2024 by Austin Ervin MD at [facility] Right: Chest CR BARD : PERIPHERAL VASCULAR [id number] 01/23/2025 [id number] / / [id number] documented as of this encounter Visit Diagnoses Diagnosis Urothelial carcinoma of kidney, 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) Elevated prostate specific antigen (PSA) Disorder of kidney and ureter, unspecified documented in this encounter Advance Directives Documents on File Type Date Recorded Patient Rn Transition Expl anation Advance Directives and Living Will [...] Agen t (per Health Care Power of Etl Data Architect document) Care Teams Land Reclamation Specialist Relationship Specialty Start Date End Date Beny Campbell DO [address] [place] [address] PCP - General Family Medicine 06/02/18 documented as of this encounter
[2025-01-05 07:23] LABS: Basophils # (auto) 0.04 K/uL (0.00-0.20); Basophils % (auto) 0.4 %; Eosinophils # (auto) 0.07 K/uL (0.00-0.50); Eosinophils % (auto) 0.6 %; Hematocrit (blood only) 38.2 % (42.0-52.0); Hemoglobin 13.2 g/dl (14.0-18.0); Immature Granulocytes # (auto) 0.09 K/uL (0.01-0.20); Immature Granulocytes % (auto) 0.8 %; Lymphocytes # (auto) 0.25 K/uL (1.20-3.40); Lymphocytes % (auto) 2.3 %; Mean Corpuscular Hemoglobin 31.6 pg (25.0-34.0); Mean Corpuscular Hgb Conc 34.6 g/dL (32.0-36.0); Mean Corpuscular Volume 91.4 fL (80.0-100.0); Mean Platelet Volume 9.6 fL (9.4-12.4); Monocytes # (auto) 0.76 K/uL (0.11-0.59); Neutrophils # (auto) 9.61 K/uL (1.40-6.50); Neutrophils % (auto) 88.9 %; Platelet Count 176 K/uL (130-400); RDW Coefficient of Variation 12.6 % (11.5-14.5); RDW Standard Deviation 42.3 fL (36.4-46.3); Red Blood Count 4.18 M/uL (4.70-6.10); White Blood Count 10.82 K/ul (4.8-10.8)
[2025-01-05 07:42] LABS: Albumin Globulin Ratio 1.1 (0.9-2); Albumin Level 3.9 gm/dl (3.4-5.0); Bilirubin,Total 0.9 mg/dl (0.2-1.0); Calcium 8.7 mg/dl (8.6-10.3); Globulin 3.4 gm/dl (2.5-4.0); Potassium 3.5 mmol/L (3.5-5.1); Total Protein 7.3 gm/dl (6.0-8.3)
[2025-01-05] MEDS: ACETAMINOPHEN 1,000 MG/100 ML VIAL IV STA (07:45)
[2025-01-05] MEDS: ALBUTEROL 0.5% NEB SOLN 2.5 MG/0.5 ML VIAL NEB STA ×2 (07:46→11:20)
[2025-01-05 07:48] LABS: Troponin I High Sensitivity 13.7 pg/ml (0-20)
--- NOTE | 2025-01-05 08:13 | XRay Report ---
EXAM: XR chest 1V portable CLINICAL HISTORY: SOB, wheezing, sepsis TECHNIQUE: A portable X-ray image of the chest was obtained in anteroposterior (AP) projection. COMPARISON: Prior CT study dated 12/07/2023 was reviewed. FINDINGS: Right-sided portacath is seen with its tip likely in the right atrium. Pulmonary Parenchyma: Exaggerated bilateral hilar and parahilar bronchovascular markings. Bilateral lower zonal atelectatic bands. Otherwise, the lungs are clear bilaterally. No evidence of consolidation, collapse, or focal opacities. No sizable pulmonary nodules identified. No evidence of pleural effusion or pleural thickening. Heart and Mediastinum: Heart size and shape are normal. No mediastinal masses. Bony Thorax: Bony thorax appears intact without fractures or deformities. Soft Tissues: Soft tissues overlying the chest wall are unremarkable. IMPRESSION: 1. Exaggerated bilateral hilar and parahilar bronchovascular markings could be due to pulmonary congestion; would recommend clinical correlation. 2. Bilateral lower zonal atelectatic bands (matching the prior CT study). 3. Right-sided portacath is seen with its tip likely in the right atrium (newly noted). Electronically signed by Ranjeet Valverde 01-05-2025 08:13 AM
--- NOTE | 2025-01-05 08:41 | Emergency Department Note ---
Impression & Plan PRESTON (acute kidney injury), UTI (urinary tract infection), Wheezing, CHF exacerbation ED Provider Note NAME: MAISHA DAVID AGE: 84 SEX: M : 1940 ARRIVES VIA: Ambulance INFORMANT: Patient, ED PROVIDER(S): Davina Hummel MD CHIEF COMPLAINT: Weakness,, dizziness, fever HPI: This is a an 84-year-old male presenting for weakness, fever and dizziness. Patient states that he has felt somewhat weak and having difficulty standing/moving. He has a slight headache as well as body aches. He reports no nausea or vomiting or chest pain or shortness of breath. He does feel wheezy at this time which is chronic for him. Is slightly worsening. He reports no neck stiffness. He does report chills and bodyaches throughout. ROS: See above HPI for pertinent positives & negatives. A total of 10 systems reviewed and were otherwise negative. PAST MEDICAL HISTORY: See Below PAST SURGICAL HISTORY: See Below FAMILY HISTORY: See Below SOCIAL HISTORY: See Below HOME MEDICATIONS: See Below ALLERGIES: See Below VITALS: See Below PHYSICAL EXAMINATION: General: resting comfortably in no acute distress Head: Normocephalic and atraumatic Eyes: Normal inspection, extraocular muscles intact Ear, nose, throat: Normal external exam Neck: Normal range of motion Respiratory: Wheezing in all lung varma Cardiovascular: Regular rate/rhythm, no murmur GI: soft, nontender, no guarding or rebound Extremities: nontender, moves all extremities Neuro: The patient awake and alert, appropriately conversive, no focal deficits, symmetric faces Skin: Warm, dry, and intact MEDICAL DECISION MAKING: This is a 84-year-old male present for weakness, fever and dizziness. Patient notes weakness and dizziness at this time. He also has a fever up to 39 degrees. Will give Tylenol at this time. He is tachypneic as well. Consider pneumonia, bronchitis, COPD, sepsis, UTI. Patient has had burning with urination and is on Macrobid for this. Patient currently significantly wheezing, will give albuterol to start. - Blood work reviewed showing a WC of 10.82, hemoglobin 13.2. Creatinine elevated 1.81, over double his previous baseline. -Patient is still wheezing after albuterol. Will give a second dose at this time. -Chest x-ray reveals signs of pulmonary vascular congestion. -URI panel negative -Due to patient's significant PRESTON, fever will admit at this time. Differential diagnosis: Pneumonia, UTI, pyelonephritis, sepsis, COPD, fluid overload, CHF Independent History obtained from: Diagnostics interpreted by me: ECG: ECG independently interpreted by me with normal sinus rhythm with occasional PAC, rate of 85, normal AL, normal QRS, normal QTc, no ST segment elevations consistent with STEMI criteria Cardiac Monitoring: An order was placed for continuous cardiac monitoring. The monitor shows a rate of 67 with sinus Past Med/Surg History Problem List (Updated 01/05/25 @ 14:31 by Rosi Lr PA-C) UTI (urinary tract infection) Sepsis History of nephroureterectomy Cancer of right kidney Fever and chills Arthritis of right shoulder Bleeding from wound (Acute) Status post total left knee replacement Encounter for pre-operative examination Lab test negative for COVID-19 virus (Acute) Food impaction of esophagus Spinal stenosis of lumbar region Degenerative arthritis of knee, bilateral Chest pain (Acute) Chronic neck pain Cervical stenosis of spinal canal (Chronic) Hepatic steatosis Hypertension (Chronic) controlled, stable per pt Medical History Post-op pain 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 following with Dr Edwards at [facility]. Asthma controlled, stable; last rescue inhaler use (uses it for wheezing - ~10/18/23) Prediabetes pt denies History of COVID-19 05/2021- asymptomatic Migraine No longer on Botox treatment secondary to reaction Hearing deficit hearing aids bilat Dysphagia denies choking History of kidney stones Tinnitus Lumbar spinal stenosis BPH (benign prostatic hyperplasia) Chronic tension type headache Barretts esophagus Follows with [facility] GERD (gastroesophageal reflux disease) controlled, stable per pt Attention deficit disorder (ADD) Anxiety Surgical History Status post biopsy of kidney [facility] 08/2023 positive for renal cell carcinoma History of cataract surgery bilateral Status post left knee replacement S/P epidural steroid injection S/P right knee arthroscopy S/P left knee arthroscopy History of colonoscopy with polypectomy History of esophagogastroduodenoscopy (EGD) History of cystoscopy History of lithotripsy History of carpal tunnel release right H/O arthroscopy of shoulder right with bone spur removal Family History Father Cancer Family hx of colon cancer Mother Cancer Sister Rheumatic fever with cardiac involvement Family history of diabetes mellitus Son Family hx of colon cancer Other No family history of adverse response to anesthesia Social History Smoking Status: Former smoker Tobacco Type: Cigarettes Second Hand Exposure: No; Do You Dip or Chew Tobacco: No; Hx Alcohol Use: Yes Alcohol type: beer Hx Substance Use: No Preferred Language: Chadian Communication Ability: Effective Stave And Bolt Equalizer Required: No Beliefs That Will Affect Care: None marital status: Current Living Situation: Spouse Current Living Situation Comment: with spouse current occupational status: retired 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 other: Patient ambulates without assist device, exercises on stationary bike 3 times per week Feels Safe at Home: Yes Assistive Devices: Cane and Walker Allergies Allergies Allergy/AdvReac Type Severity Reaction Status Date / Time onabotulinumtoxinA Allergy Severe trouble Verified 12/08/23 00:36 [From Botox] swallowing/ headache azelastine Allergy Intermediate panic Verified 12/08/23 00:36 attack/ depression Home Meds Home Medications Medication Instructions Recorded Confirmed cyanocobalamin (vitamin B-12) 1,000 mcg PO DAILY 05/12/18 01/05/25 1,000 mcg tablet (Vitamin B-12) fluticasone propionate 50 1 spray intranasal DAILY PRN SINUS 05/12/18 01/05/25 mcg/actuation nasal CONGESTION spray,suspension (Flonase Allergy Relief) finasteride 5 mg tablet 5 mg PO QAM 06/21/22 01/05/25 albuterol sulfate 90 mcg/actuation 90 mcg inhalation QID PRN sob 09/18/22 01/05/25 aerosol inhaler lorazepam 0.5 mg tablet 0.25 mg PO HS 09/18/22 01/05/25 propranolol 10 mg tablet 40 mg PO BID 09/18/22 01/05/25 tamsulosin 0.4 mg capsule 0.4 mg PO QAM 09/18/22 01/05/25 bupropion HCl 100 mg tablet 50 mg PO BID 10/22/23 01/05/25 metaxalone 800 mg tablet 800 mg PO QPM 10/22/23 01/05/25 mirtazapine 15 mg tablet 15 mg PO HS 10/22/23 01/05/25 budesonide 32 mcg/actuation nasal 1 spray intranasal QAM PRN Other 12/08/23 01/05/25 spray meclizine 25 mg tablet 25 mg PO TID PRN Dizziness 12/08/23 01/05/25 metaxalone 800 mg tablet 400 - 800 mg PO BID PRN Pain 12/08/23 01/05/25 metoclopramide HCl 10 mg tablet 10 mg PO Q6H PRN Nausea 12/08/23 01/05/25 rimegepant 75 mg disintegrating 75 mg PO Q2D PRN .head and neck 12/08/23 01/05/25 tablet pain triamcinolone acetonide 0.1 % 1 applic topical BID PRN Skin 12/08/23 01/05/25 topical ointment Irritation esomeprazole magnesium 40 mg 40 mg PO QAM 01/05/25 01/05/25 capsule,delayed release lidocaine-prilocaine 2.5 %-2.5 % 1 applic topical DIRECTED PRN 01/05/25 01/05/25 topical cream Other nitrofurantoin 100 mg PO BID 01/05/25 01/05/25 monohydrate/macrocrystals 100 mg capsule polyethylene glycol 3350 17 17 g PO DAILY PRN Constipation 01/05/25 01/05/25 gram/dose oral powder (Miralax) sennosides 8.6 mg tablet (Senokot) 8.6 mg PO DAILY PRN Constipation 01/05/25 01/05/25 Previous Rx's Medication Instructions Recorded Wheeled Walker #1 ea 07/30/22 Wheeled Walker #1 ea 07/30/22 Results & Data (ED) Vital Signs Vital Signs - 24 hr 01/05/25 06:39 01/05/25 06:43 01/05/25 06:50 Temperature 39.0 C H Temperature Source Oral Pulse Rate 85 87 Pulse Rate [Apical] Pulse Rhythm [Apical] Pulse Strength [Apical] Respiratory Rate 30 H Respiratory Effort / Characteristics Labored Respiratory Depth Respiratory Pattern Tachypnea Blood Pressure 140/74 Blood Pressure [Right Arm] Blood Pressure Mean 96 Blood Pressure Mean [Right Arm] Blood Pressure Position Sitting Blood Pressure Position [Right Arm] Pulse Oximetry 93 92 Oxygen Delivery Method Room Air Room Air Sepsis Recent Fever Within 48 Hours Yes Sepsis New/Unexplained Change in Mental Status No Sepsis Action Taken by Nursing Physician Notified 01/05/25 09:00 01/05/25 11:22 Temperature Temperature Source Pulse Rate Pulse Rate [Apical] 72 68 Pulse Rhythm [Apical] Regular Regular Pulse Strength [Apical] Normal Respiratory Rate 27 H 21 Respiratory Effort / Characteristics Non-Labored Spontaneous Non-Labored Respiratory Depth Normal Normal Respiratory Pattern Regular Regular Blood Pressure Blood Pressure [Right Arm] 126/80 142/77 H Blood Pressure Mean Blood Pressure Mean [Right Arm] 95 98 Blood Pressure Position Blood Pressure Position [Right Arm] Lying Pulse Oximetry Oxygen Delivery Method Room Air Sepsis Recent Fever Within 48 Hours Sepsis New/Unexplained Change in Mental Status Sepsis Action Taken by Nursing Laboratory Data 01/05/25 06:45 01/05/25 06:45 Lab Results 01/05/25 01/05/25 01/05/25 Range/Units 06:45 10:32 10:34 WBC 10.82 H (4.8-10.8) K/ul RBC 4.18 L (4.70-6.10) M/uL Hgb 13.2 L (14.0-18.0) g/dl Hct 38.2 L (42.0-52.0) % MCV 91.4 (80.0-100.0) fL MCH 31.6 (25.0-34.0) pg MCHC 34.6 (32.0-36.0) g/dL RDW Std Deviation 42.3 (36.4-46.3) fL RDW Coeff of Moris 12.6 (11.5-14.5) % Plt Count 176 (130-400) K/uL MPV 9.6 (9.4-12.4) fL Immature Gran % (Auto) 0.8 % Neut % (Auto) 88.9 % Lymph % (Auto) 2.3 % [place] % (Auto) 7.0 % Eos % (Auto) 0.6 % Baso % (Auto) 0.4 % Neut # (Auto) 9.61 H (1.40-6.50) K/uL Lymph # (Auto) 0.25 L (1.20-3.40) K/uL [place] # (Auto) 0.76 H (0.11-0.59) K/uL Eos # (Auto) 0.07 (0.00-0.50) K/uL Baso # (Auto) 0.04 (0.00-0.20) K/uL Immature Gran # (Auto) 0.09 (0.01-0.20) K/uL Sodium 136 (136-145) mmol/L Potassium 3.5 (3.5-5.1) mmol/L Chloride 108 H (98-107) mmol/L Carbon Dioxide 19 L (21-32) mmol/L Anion Gap 9 (3-11) BUN 29 H (6-23) mg/dl Creatinine 1.81 H (0.6-1.4) mg/dl Est Cr Clr Drug Dosing 37.0 ml/min eGFR 36.41 BUN/Creatinine Ratio 16.0 (10-20) Glucose 143 H (70-99(Fasting)) mg/dl Lactate 1.2 (0.4-2.0) mmol/L Calcium 8.7 (8.6-10.3) mg/dl Total Bilirubin 0.9 (0.2-1.0) mg/dl AST 27 (13-39) U/L ALT 20 (7-52) U/L Alkaline Phosphatase 56 (34-104) U/L Troponin I High Sens 13.7 (0-20) pg/ml Total Protein 7.3 (6.0-8.3) gm/dl Albumin 3.9 (3.4-5.0) gm/dl Globulin 3.4 (2.5-4.0) gm/dl Albumin/Globulin Ratio 1.1 (0.9-2) Procalcitonin 6.98 H (0-0.5) ng/ml Adenovirus (PCR) (NotDetected) B. pertussis DNA (PCR) (NotDetected) B.parapertussis DNA PCR (NotDetected) C. pneumoniae DNA (PCR) (NotDetected) Coronavirus OC43 (PCR) (NotDetected) Coronavirus HKU1 (PCR) (NotDetected) Coronavirus 229E (PCR) (NotDetected) SARS-CoV-2 (PCR) (NotDetected) Coronavirus NL63 (PCR) (NotDetected) Human Metapneumovir PCR (NotDetected) Influenza Type A (PCR) (NotDetected) Influenza Type B (PCR) (NotDetected) M. pneumoniae (PCR) (NotDetected) Parainfluenza 1 (PCR) (NotDetected) Parainfluenza 2 (PCR) (NotDetected) Parainfluenza 3 (PCR) (NotDetected) Parainfluenza 4 (PCR) (NotDetected) RSV (PCR) (NotDetected) Entero/Rhino (PCR) (NotDetected) 01/05/25 Range/Units 11:22 WBC (4.8-10.8) K/ul RBC (4.70-6.10) M/uL Hgb (14.0-18.0) g/dl Hct (42.0-52.0) % MCV (80.0-100.0) fL MCH (25.0-34.0) pg MCHC (32.0-36.0) g/dL RDW Std Deviation (36.4-46.3) fL RDW Coeff of Moris (11.5-14.5) % Plt Count (130-400) K/uL MPV (9.4-12.4) fL Immature Gran % (Auto) % Neut % (Auto) % Lymph % (Auto) % [place] % (Auto) % Eos % (Auto) % Baso % (Auto) % Neut # (Auto) (1.40-6.50) K/uL Lymph # (Auto) (1.20-3.40) K/uL [place] # (Auto) (0.11-0.59) K/uL Eos # (Auto) (0.00-0.50) K/uL Baso # (Auto) (0.00-0.20) K/uL Immature Gran # (Auto) (0.01-0.20) K/uL Sodium (136-145) mmol/L Potassium (3.5-5.1) mmol/L Chloride (98-107) mmol/L Carbon Dioxide (21-32) mmol/L Anion Gap (3-11) BUN (6-23) mg/dl Creatinine (0.6-1.4) mg/dl Est Cr Clr Drug Dosing ml/min eGFR BUN/Creatinine Ratio (10-20) Glucose (70-99(Fasting)) mg/dl Lactate (0.4-2.0) mmol/L Calcium (8.6-10.3) mg/dl Total Bilirubin (0.2-1.0) mg/dl AST (13-39) U/L ALT (7-52) U/L Alkaline Phosphatase (34-104) U/L Troponin I High Sens (0-20) pg/ml Total Protein (6.0-8.3) gm/dl Albumin (3.4-5.0) gm/dl Globulin (2.5-4.0) gm/dl Albumin/Globulin Ratio (0.9-2) Procalcitonin (0-0.5) ng/ml Adenovirus (PCR) Not Detected (NotDetected) B. pertussis DNA (PCR) Not Detected (NotDetected) B.parapertussis DNA PCR Not Detected (NotDetected) C. pneumoniae DNA (PCR) Not Detected (NotDetected) Coronavirus OC43 (PCR) Not Detected (NotDetected) Coronavirus HKU1 (PCR) Not Detected (NotDetected) Coronavirus 229E (PCR) Not Detected (NotDetected) SARS-CoV-2 (PCR) Not Detected (NotDetected) Coronavirus NL63 (PCR) Not Detected (NotDetected) Human Metapneumovir PCR Not Detected (NotDetected) Influenza Type A (PCR) Not Detected (NotDetected) Influenza Type B (PCR) Not Detected (NotDetected) M. pneumoniae (PCR) Not Detected (NotDetected) Parainfluenza 1 (PCR) Not Detected (NotDetected) Parainfluenza 2 (PCR) Not Detected (NotDetected) Parainfluenza 3 (PCR) Not Detected (NotDetected) Parainfluenza 4 (PCR) Not Detected (NotDetected) RSV (PCR) Not Detected (NotDetected) Entero/Rhino (PCR) Not Detected (NotDetected) Administered Medications Sodium Chloride (Nss) 1,000 mls @ 125 mls/hr IV .Q8H PEDRO Stop: 01/06/25 03:44 Last Admin: 01/05/25 12:04 Dose: 125 mls/hr Documented By: MICHELLE Discontinued Medications Albuterol (Albuterol 0.5% Neb Soln 2.5 Mg/0.5 Ml Vial) 2.5 mg NEB NOW STA; Protocol Stop: 01/05/25 07:13 Last Admin: 01/05/25 07:46 Dose: 2.5 mg Documented By: Albuterol (Albuterol 0.5% Neb Soln 2.5 Mg/0.5 Ml Vial) 2.5 mg NEB NOW STA; Protocol Stop: 01/05/25 10:08 Last Admin: 01/05/25 11:20 Dose: 2.5 mg Documented By: MICHELLE Albuterol (Albut/Ipratrop 3mg/0.5mg Neb 3 Ml Vial) 3 ml NEB NOW STA; Protocol Stop: 01/05/25 11:37 Last Admin: 01/05/25 12:04 Dose: 3 ml Documented By: MICHELLE Acetaminophen (Ofirmev) 1,000 mg in 100 mls @ 400 mls/hr IV NOW STA Stop: 01/05/25 07:17 Last Infusion: 01/05/25 08:00 Dose: Infused Documented By: Admin: 01/05/25 07:45 Dose: 400 mls/hr Documented By: CHELI Sodium Chloride (Nss) 500 mls @ 999 mls/hr IV .Q31M ONE Stop: 01/05/25 10:37 Last Infusion: 01/05/25 12:39 Dose: Infused Documented By: Admin: 01/05/25 11:20 Dose: 999 mls/hr Documented By: MICHELLE Vancomycin HCl 2,250 mg/ (Sodium Chloride) 545 mls @ 200 mls/hr IV NOW STA Stop: 01/05/25 14:21 Last Admin: 01/05/25 12:56 Dose: 200 mls/hr Documented By: MICHELLE Piperacillin Sod/Tazobactam Sod (Zosyn) 4.5 gm in 100 mls @ 200 mls/hr IV NOW STA; Protocol Stop: 01/05/25 12:08 Last Infusion: 01/05/25 12:39 Dose: Infused Documented By: Admin: 01/05/25 12:04 Dose: 200 mls/hr Documented By: Brendon Imaging Data Radiologist's Impression: Chest X-Ray 01/05/25 07:03 EXAM: XR chest 1V portable CLINICAL HISTORY: SOB, wheezing, sepsis TECHNIQUE: A portable X-ray image of the chest was obtained in anteroposterior (AP) projection. COMPARISON: Prior CT study dated 12/07/2023 was reviewed. FINDINGS: Right-sided portacath is seen with its tip likely in the right atrium. Pulmonary Parenchyma: Exaggerated bilateral hilar and parahilar bronchovascular markings. Bilateral lower zonal atelectatic bands. Otherwise, the lungs are clear bilaterally. No evidence of consolidation, collapse, or focal opacities. No sizable pulmonary nodules identified. No evidence of pleural effusion or pleural thickening. Heart and Mediastinum: Heart size and shape are normal. No mediastinal masses. Bony Thorax: Bony thorax appears intact without fractures or deformities. Soft Tissues: Soft tissues overlying the chest wall are unremarkable. IMPRESSION: 1. Exaggerated bilateral hilar and parahilar bronchovascular markings could be due to pulmonary congestion; would recommend clinical correlation. 2. Bilateral lower zonal atelectatic bands (matching the prior CT study). 3. Right-sided portacath is seen with its tip likely in the right atrium (newly noted). Electronically signed by Ranjeet Valverde 01-05-2025 08:13 AM Discharge Plan Visit Data Chief Complaint: Dizziness Stated Complaint: DIZZY, HEADACHE ED Provider: Davina Hummel Discharge Problem: PRESTON (acute kidney injury), UTI (urinary tract infection), Wheezing, CHF exacerbation Patient Disposition: Admitted As Inpatient Condition: Fair Discharge Instructions Interventions: ED Discharge Assessment Last Done: 01/05/25 13:53 Discharge Problem: UTI (urinary tract infection) Qualifiers: Urinary tract infection type: acute cystitis CHF exacerbation Qualifiers: Heart failure type: unspecified Qualified Code(s): I50.9 - Heart failure, unspecified
--- NOTE | 2025-01-05 10:11 | History & Physical Report ---
Date of Service January 05, 2025 Assessment & Plan (1) Sepsis: (2) UTI (urinary tract infection): Plan: Mr. Gutiérrez is an 84y/o M with PMHx significant for prediabetes, hypercalcemia previously requiring Zometa therapy, mild intermittent asthma, HTN, Barretts esophagus, GERD, BPH with LUTS, urothelial carcinoma of right kidney s/p right- sided hand assisted laparoscopic radical nephroureterectomy and intravesical instillation of mitomycin-C in November 2023, CKD stage IIIb, chronic headaches, bilateral occipital neuralgia, chronic balance changes and ataxia in the setting of lumbago-sciatica, depression and FAHAD who presented to the ED with multiple complaints including generalized weakness and fevers. Meets sepsis criteria on admission given fever, tachypnea and urinary source of infection. All imaging personally reviewed including CXR and chest CT. No evidence of PNA or pleural effusion. RVP negative. Labs personally reviewed. Mild leukocytosis with neutrophilic predominance. Procalcitonin elevated at 6.98; lactate negative. UA with trace blood, 1+ LE, 21-50 WBC and 4+ bacteria. Cover with IV vancomycin and Zosyn for now pending blood and urine culture results. Continue IVF resuscitation with an additional 2L NSS per sepsis protocol. + diffuse wheezing on exam. Saturating well on RA. Continue scheduled Duonebs Q6H. (3) Cancer of right kidney: (4) History of nephroureterectomy: Plan: Currently undergoing immunotherapy every 2 weeks with IV nivolumab (Opdivo) for treatment of urothelial carcinoma of the right kidney with his most recent treatment being yesterday, 01/04/2025. Follows with Dr. Winter of [facility] hematology/oncology. Recently had PET scan done last month which was personally reviewed. No FDG PET- CT evidence of recurrent or metastatic disease noted. Follows with Dr. Edwards of [facility] urology. He has been undergoing monitoring cystoscopies every 3 months to check for lower urinary tract recurrence. Most recent cystoscopy in October 2024 without evidence of bladder recurrence. (5) Stage 3b chronic kidney disease (CKD): Plan: Cr stable, baseline Cr around 1.6-2.0 as per chart review. Avoid nephrotoxic agents when able. Monitor renal function closely with daily labs and renally dose medications when able. (6) Hypertension: Plan: Continue [employer] BB therapy with routine BP monitoring and hold parameters. Other Chronic Medical Conditions: Evans's Esophagus/GERD - Continue PPI. FAHAD/Depression - Continue Wellbutrin, Remeron. BPH with LUTS - Continue Flomax, Proscar. Prediabetes - Hgb A1c 5.6% 1 month ago. H/O Migraines - [facility] DVT Prophylaxis: SQ Heparin Code Status: FULL CODE PCP: Henrik Campbell DO Disposition: Admit to PCU for further inpatient evaluation and management. Patient seen in collaboration with Dr. Faith. Please see addendum. I spent a total of 68 minutes coordinating, documenting, and providing care for this patient excluding time spent in the performance of separately billed services or time spent by another provider/QHP. This included personally reviewing all current laboratories and imaging studies, medical reconciliation, outpatient chart review and discussion with specialists. This chart was completed in part utilizing Speech Voice Recognition Software. Grammatical errors, random word insertions, pronoun errors, and incomplete sentences are an occasional consequence of this system due to software limitations, ambient noise, and hardware issues. Any formal questions or concerns about the content, text, or information contained within the body of this dictation should be directly addressed to the provider for clarification. History of Present Illness Chief Complaint: Fevers, generalized weakness Primary Care Provider: Henrik Campbell DO Mr. Gutiérrez is an 84y/o M with PMHx significant for prediabetes, hypercalcemia previously requiring Zometa therapy, mild intermittent asthma, HTN, Barretts esophagus, GERD, BPH with LUTS, urothelial carcinoma of right kidney s/p right- sided hand assisted laparoscopic radical nephroureterectomy and intravesical instillation of mitomycin-C in November 2023, CKD stage IIIb, chronic headaches, bilateral occipital neuralgia, chronic balance changes and ataxia in the setting of lumbago-sciatica, depression and FAHAD who presented to the ED with multiple complaints including generalized weakness and fevers. History obtained from the patient, patient's at bedside, discussion with ED provider and associated chart review. Endorses worsening generalized weakness since the weekend as well as intermittent fevers and chills with Tmax of 102F earlier this morning. Has had a nonproductive cough for the past 1-2 weeks. Has some chronic SOB with exertion which feels unchanged from baseline. Currently undergoing immunotherapy every 2 weeks with IV nivolumab (Opdivo) for treatment of urothelial carcinoma of the right kidney with his most recent treatment being yesterday, 01/04/2025. Follows with Dr. Winter of [facility] hematology/oncology. Currently being treated for a UTI with oral Macrobid. Has 1 dose left. Did not take any of his medications this morning. Urine culture from 12/21/2024 grew Aerococcus sanguinicola. No available culture sensitives. Endorses ongoing dysuria. This has been occurring since his cystoscopy done in October 2024 with [facility] urologist, Dr. Edwards. He has been undergoing monitoring cystoscopies every 3 months to check for lower urinary tract recurrence. Most recent cystoscopy without evidence of bladder recurrence. Recently had PET scan done last month which was personally reviewed. No FDG PET- CT evidence of recurrent or metastatic disease noted. Former smoker. Occasional alcohol use. No recreational drug use. Febrile and tachypneic in the ED however remained saturating well on RA. Labs personally reviewed. Mild leukocytosis. Lactate negative. Procalcitonin elevated at 6.98. UA with obvious evidence of infection. Nasal MRSA negative. Respiratory BioFire panel negative. CXR and chest CT without evidence of PNA. Allergies Allergy/AdvReac Type Severity Reaction Status Date / Time onabotulinumtoxinA Allergy Severe trouble Verified 12/08/23 00:36 [From Botox] swallowing/ headache azelastine Allergy Intermediate panic Verified 12/08/23 00:36 attack/ depression Home Medications Medication Instructions Recorded Confirmed Type cyanocobalamin (vitamin B-12) 1,000 mcg PO DAILY 05/12/18 01/05/25 History 1,000 mcg tablet (Vitamin B-12) fluticasone propionate 50 1 spray intranasal DAILY PRN SINUS 05/12/18 01/05/25 History mcg/actuation nasal CONGESTION spray,suspension (Flonase Allergy Relief) finasteride 5 mg tablet 5 mg PO QAM 06/21/22 01/05/25 History Wheeled Walker #1 ea 07/30/22 01/05/25 Rx Wheeled Walker #1 ea 07/30/22 01/05/25 Rx albuterol sulfate 90 mcg/actuation 90 mcg inhalation QID PRN sob 09/18/22 01/05/25 History aerosol inhaler lorazepam 0.5 mg tablet 0.25 mg PO HS 09/18/22 01/05/25 History propranolol 10 mg tablet 40 mg PO BID 09/18/22 01/05/25 History tamsulosin 0.4 mg capsule 0.4 mg PO QAM 09/18/22 01/05/25 History bupropion HCl 100 mg tablet 50 mg PO BID 10/22/23 01/05/25 History metaxalone 800 mg tablet 800 mg PO QPM 10/22/23 01/05/25 History mirtazapine 15 mg tablet 15 mg PO HS 10/22/23 01/05/25 History budesonide 32 mcg/actuation nasal 1 spray intranasal QAM PRN Other 12/08/23 01/05/25 History spray meclizine 25 mg tablet 25 mg PO TID PRN Dizziness 12/08/23 01/05/25 History metaxalone 800 mg tablet 400 - 800 mg PO BID PRN Pain 12/08/23 01/05/25 History metoclopramide HCl 10 mg tablet 10 mg PO Q6H PRN Nausea 12/08/23 01/05/25 History rimegepant 75 mg disintegrating 75 mg PO Q2D PRN .head and neck 12/08/23 01/05/25 History tablet pain triamcinolone acetonide 0.1 % 1 applic topical BID PRN Skin 12/08/23 01/05/25 History topical ointment Irritation esomeprazole magnesium 40 mg 40 mg PO QAM 01/05/25 01/05/25 History capsule,delayed release lidocaine-prilocaine 2.5 %-2.5 % 1 applic topical DIRECTED PRN 01/05/25 01/05/25 History topical cream Other nitrofurantoin 100 mg PO BID 01/05/25 01/05/25 History monohydrate/macrocrystals 100 mg capsule polyethylene glycol 3350 17 17 g PO DAILY PRN Constipation 01/05/25 01/05/25 History gram/dose oral powder (Miralax) sennosides 8.6 mg tablet (Senokot) 8.6 mg PO DAILY PRN Constipation 01/05/25 01/05/25 History Past Med/Surg History Problem List Stage 3b chronic kidney disease (CKD) UTI (urinary tract infection) Sepsis History of nephroureterectomy Cancer of right kidney Fever and chills Arthritis of right shoulder Bleeding from wound (Acute) Status post total left knee replacement Encounter for pre-operative examination Lab test negative for COVID-19 virus (Acute) Food impaction of esophagus Spinal stenosis of lumbar region Degenerative arthritis of knee, bilateral Chest pain (Acute) Chronic neck pain Cervical stenosis of spinal canal (Chronic) Hepatic steatosis Hypertension (Chronic) controlled, stable per pt Medical History Post-op pain 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 following with Dr Edwards at [facility]. Asthma controlled, stable; last rescue inhaler use (uses it for wheezing - ~10/18/23) Prediabetes pt denies History of COVID-19 05/2021- asymptomatic Migraine No longer on Botox treatment secondary to reaction Hearing deficit hearing aids bilat Dysphagia denies choking History of kidney stones Tinnitus Lumbar spinal stenosis BPH (benign prostatic hyperplasia) Chronic tension type headache Barretts esophagus Follows with [facility] GERD (gastroesophageal reflux disease) controlled, stable per pt Attention deficit disorder (ADD) Anxiety Surgical History Status post biopsy of kidney [facility] 08/2023 positive for renal cell carcinoma History of cataract surgery bilateral Status post left knee replacement S/P epidural steroid injection S/P right knee arthroscopy S/P left knee arthroscopy History of colonoscopy with polypectomy History of esophagogastroduodenoscopy (EGD) History of cystoscopy History of lithotripsy History of carpal tunnel release right H/O arthroscopy of shoulder right with bone spur removal Family History Father Cancer Family hx of colon cancer Mother Cancer Sister Rheumatic fever with cardiac involvement Family history of diabetes mellitus Son Family hx of colon cancer Other No family history of adverse response to anesthesia Social History Smoking Status: Former smoker Tobacco Type: Cigarettes Second Hand Exposure: No; Do You Dip or Chew Tobacco: No; Hx Alcohol Use: Yes Alcohol type: beer Hx Substance Use: No Preferred Language: Yakut Communication Ability: Effective Fuel Buyer Required: No Beliefs That Will Affect Care: None marital status: Current Living Situation: Spouse Current Living Situation Comment: home current occupational status: retired 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 Physical Exam Physical Exam: General: Elderly, M. NAD. Sitting up in bed. Very [place]. A&Ox4. present at bedside. HEENT: Normocephalic, atraumatic. Conjunctivae normal. External ear and nose normal, oropharynx dry. Respiratory: Normal respiratory effort. + diffuse wheezing. Saturating in the mid to upper 90s on RA. No accessory muscle use. Cardiovascular: Regular rate and rhythm. Normal peripheral pulses, no BLE edema. Abdomen/GI: Normal bowel sounds, soft, nondistended, nontender to palpation in all quadrants. Extremities/MSK: No cyanosis or clubbing, extremities motor strength intact, actively moves all extremities. Right upper chest Port-A-Cath site without any evidence of drainage or overlying erythema. No tenderness with palpation of Port-A-Cath site. Neurologic: No overt focal deficits. CN's II-XI not formally tested but appear grossly intact bilaterally. Results & Data Results & Data Vital Signs (Past 12 Hours) Vital Signs Temp Pulse Pulse Resp BP BP Pulse Ox 01/05/25 09:00 72 27 H 126/80 01/05/25 06:50 92 01/05/25 06:43 87 01/05/25 06:39 39.0 C H 85 30 H 140/74 93 O2 Del Method 01/05/25 09:00 Room Air 01/05/25 06:50 Room Air 01/05/25 06:43 01/05/25 06:39 Room Air Laboratory Results Short CBC 01/05/25 Range/Units 06:45 WBC 10.82 H (4.8-10.8) K/ul Hgb 13.2 L (14.0-18.0) g/dl Hct 38.2 L (42.0-52.0) % Plt Count 176 (130-400) K/uL BMP 01/05/25 06:45 Sodium 136 Potassium 3.5 Chloride 108 H Carbon Dioxide 19 L BUN 29 H Creatinine 1.81 H Glucose 143 H Calcium 8.7 Liver Function 01/05/25 Range/Units 06:45 Total Bilirubin 0.9 (0.2-1.0) mg/dl AST 27 (13-39) U/L ALT 20 (7-52) U/L Alkaline Phosphatase 56 (34-104) U/L Albumin 3.9 (3.4-5.0) gm/dl Diagnostic Findings Chest X-Ray 01/05/25 07:03 EXAM: XR chest 1V portable CLINICAL HISTORY: SOB, wheezing, sepsis TECHNIQUE: A portable X-ray image of the chest was obtained in anteroposterior (AP) projection. COMPARISON: Prior CT study dated 12/07/2023 was reviewed. FINDINGS: Right-sided portacath is seen with its tip likely in the right atrium. Pulmonary Parenchyma: Exaggerated bilateral hilar and parahilar bronchovascular markings. Bilateral lower zonal atelectatic bands. Otherwise, the lungs are clear bilaterally. No evidence of consolidation, collapse, or focal opacities. No sizable pulmonary nodules identified. No evidence of pleural effusion or pleural thickening. Heart and Mediastinum: Heart size and shape are normal. No mediastinal masses. Bony Thorax: Bony thorax appears intact without fractures or deformities. Soft Tissues: Soft tissues overlying the chest wall are unremarkable. IMPRESSION: 1. Exaggerated bilateral hilar and parahilar bronchovascular markings could be due to pulmonary congestion; would recommend clinical correlation. 2. Bilateral lower zonal atelectatic bands (matching the prior CT study). 3. Right-sided portacath is seen with its tip likely in the right atrium (newly noted). Electronically signed by Ranjeet Valverde 01-05-2025 08:13 AM Medications Administered Discontinued Medications Albuterol (Albuterol 0.5% Neb Soln 2.5 Mg/0.5 Ml Vial) 2.5 mg NEB NOW STA; Protocol Stop: 01/05/25 07:13 Last Admin: 01/05/25 07:46 Dose: 2.5 mg Documented By: Acetaminophen (Ofirmev) 1,000 mg in 100 mls @ 400 mls/hr IV NOW STA Stop: 01/05/25 07:17 Last Infusion: 01/05/25 08:00 Dose: Infused Documented By: Admin: 01/05/25 07:45 Dose: 400 mls/hr Documented By: CHELI Code Status & VTE Plan Code Status FULL CODE Supervising Physician Co-Signing Physician Notes Presents with fever, chills, cough, dysuria Exam notable for obese man with tachypnea, fever, wheezing Labs notable for Hb 13.2, Cr 1.81 (baseline per recent EPIC results), procal 6.98 Resp PCR pending CXR noted exaggerated b/l hilar and parahilar bronchovascular markings, lower zonal atelectasis, right portacath Sepsis Possible causes include pneumonia, UTI Get CT chest Start Vanc and zosyn renally dosed IVF Albuterol nebs Get UA with reflex culture Follow up infectious workup Agree with other plans as detailed by Rosi rL PA-C I spent a total of 35 minutes coordinating, documenting and providing care for this patient excluding time spent in performance of separately billed services (1) Sepsis Sepsis acute organ dysfunction status: unspecified Sepsis type: sepsis due to unspecified organism Qualified Code(s): A41.9 - Sepsis, unspecified organism (2) UTI (urinary tract infection) Hematuria presence: without hematuria Urinary tract infection type: site unspecified Qualified Code(s): N39.0 - Urinary tract infection, site not specified (6) Hypertension Hypertension type: unspecified Qualified Code(s): I10 - Essential (primary) hypertension
--- NOTE | 2025-01-05 10:43 | Electrocardiogram Report ---
Test Reason : Blood Pressure : */* mmHG Vent. Rate : 85 BPM Atrial Rate : 85 BPM P-R Int : 156 ms QRS Dur : 158 ms QT Int : 408 ms P-R-T Axes : 30 8 -4 degrees QTcB Int : 485 ms Sinus rhythm with Premature atrial complexes Right bundle branch block Abnormal ECG When compared with ECG of 07-Dec-2023 23:12, Premature atrial complexes are now Present Confirmed by Donavan Mccrary ([id number]) on 01/05/2025 10:42:51 AM Referred By: REFERRED SELF Confirmed By: Donavan Mccrary
[2025-01-05] MEDS: SODIUM CHLORIDE 0.9% 500 ML IV ONE (11:20)
[2025-01-05] MEDS ORDERED: VANCOMYCIN CONSULT ACTIVE PRN (11:33)
[2025-01-05] MEDS: SODIUM CHLORIDE 0.9% 1,000 ML IV SCH (12:04)
[2025-01-05] MEDS: PIPERACILLIN/TAZOBACTAM 4.5 GM/100 ML BAG IV STA (12:04)
[2025-01-05] MEDS: ALBUT/IPRATROP 3MG/0.5MG NEB 3 ML VIAL NEB STA (12:04)
[2025-01-05 12:27] LABS: Adenovirus PCR Not Detected (NotDetected); Bordetella parapertussis PCR Not Detected (NotDetected); Bordetella pertussis PCR Not Detected (NotDetected); Chlamydia pneumoniae PCR Not Detected (NotDetected); Coronavirus 229E PCR Not Detected (NotDetected); Coronavirus CoV-2 (COVID19)PCR Not Detected (NotDetected); Coronavirus HKU1 PCR Not Detected (NotDetected); Coronavirus NL63 PCR Not Detected (NotDetected); Coronavirus OC43PCR Not Detected (NotDetected); Human Metapneumovirus PCR Not Detected (NotDetected); Influenza A PCR Not Detected (NotDetected); Influenza B PCR Not Detected (NotDetected); Mycoplasma pneumoniae PCR Not Detected (NotDetected); Parainfluenza Virus 1 PCR Not Detected (NotDetected); Parainfluenza Virus 2 PCR Not Detected (NotDetected); Parainfluenza Virus 3 PCR Not Detected (NotDetected); Parainfluenza Virus 4 PCR Not Detected (NotDetected); Respiratory Syncytial VirusPCR Not Detected (NotDetected); Rhinovirus/Enterovirus PCR Not Detected (NotDetected)
[2025-01-05 12:55] LABS: Appearance Urine Cloudy (Clear); Bacteria Urine Automated 4+ (None Seen); Bilirubin Urine Negative (Negative); Blood Urine Trace (Negative); Cast Urine Automated 0-2 /lpf (0-2); Color Urine Dark Yellow; Epithelial Cell Urine Auto 0-2 /hpf (0-2); Glucose Urine UA Negative (Negative); Ketones Urine 1+ (Negative); Leukocyte Esterase Urine 1+ (Negative); Nitrite Urine Negative (Negative); Protein Urine 2+ (Negative); Specific Gravity Urine 1.024 (1.000-1.030); Urobilinogen Urine Negative (Negative); WBC Urine Automated 21-50 /hpf (0-5)
[2025-01-05] MEDS: VANCOMYCIN HCL 2,250 MG in SODIUM CHLORIDE 0.9% 500 ML IV STA (12:56)
--- NOTE | 2025-01-05 13:04 | CT Scan Report ---
CT chest diagnostic wo con CT DOSE: 971.9 mGy.cm CLINICAL HISTORY: Cough, fever. TECHNIQUE: Multiaxial CT images of the chest were performed without contrast. A dose lowering techni que was utilized adhering to the principles of ALARA. COMPARISON STUDY: CT of 12/07/2023 and chest x-ray earlier today FINDINGS: Right chest port tip is at the cavoatrial junction. There are trace airway secretions. Ther e is minimal stable scarring or atelectasis in the lung bases. There is no pulmonary consolidation or pleural effusion. No pneumothorax. No honeycombing or evidence of interstitial lung disease. There i s a stable 4 mm nodule lateral left lung base. No interval significant pulmonary nodule. No enlarged adenopathy. No pericardial effusion. There are diffuse coronary artery calcifications. There are mode rate thoracic spine degenerative changes. IMPRESSION: 1. No pneumonia or pleural effusion. 2. Otherwise as described. ACT 112: Negative or not required by law. Electronically signed by: Jay Lyn M.D. 01/05/2025 1:01 PM
[2025-01-05] MEDS ORDERED: ONDANSETRON INJ 2 MG/ML 2 ML VIAL IV PRN (14:18)
[2025-01-05] MEDS ORDERED: MAGNESIUM HYDROXIDE SUSP 30 ML UDC PO PRN (14:18)
[2025-01-05] MEDS ORDERED: POLYETHYLENE (MIRALAX) 17 GM PACK PO PRN (14:18)
--- NOTE | 2025-01-05 14:50 | Pharmacy Report ---
Pharmacy PK ABX Note - Date of Service January 05, 2025 - Assessment and Plan Assessment 84 year old M receiving empiric vancomycin/Zosyn for treatment of sepsis secondary to possible pulmonary/urinary tract infection. Pertinent microbiologic data includes: negative MRSA nasal swab, blood and urine cultures pending. SCr is currently 1.81 mg/dL, previously 1-1.1 mg/dL. Will dose by random level for now in light of PRESTON. Day # 1 of antimicrobial therapy. Plan Vancomycin * Loading dose: 2250 mg IV x 1 * Regimen is predicted to achieve target AUC/CARYL of 400-600 mg/L.hr * Random level ordered for: 01/06/25 Pharmacy will continue to follow and will adjust dose/frequency as necessary. Thank you. Pharmacy has transitioned to AUC monitoring for vancomycin. AUC/CARYL is the preferred PK/PD target and is associated with decreased risk of nephrotoxicity compared to traditional trough targets.
[2025-01-05] MEDS: ALBUT/IPRATROP 3MG/0.5MG NEB 3 ML VIAL NEB SCH (14:59)
[2025-01-05] MEDS: PIPERACILLIN/TAZOBACTAM 4.5 GM/100 ML BAG IV SCH (18:28)
[2025-01-05] MEDS: ACETAMINOPHEN 325 MG TAB PO PRN (19:50)
[2025-01-05] MEDS: buPROPion HCl 100 MG TABLET PO SCH (19:51)
[2025-01-05] MEDS: HEPARIN SOD 5,000 UNIT/0.5 ML VIAL SQ SCH (19:52)
[2025-01-05] MEDS: METAXALONE 800 MG TABLET PO SCH (19:53)
[2025-01-05] MEDS: guaiFENesin 600 MG TABCR PO SCH (19:53)
[2025-01-05] MEDS: MIRTAZAPINE TAB 15 MG TAB PO SCH (19:54)
[2025-01-06 05:23] LABS: Basophils # (auto) 0.03 K/uL (0.00-0.20); Basophils % (auto) 0.5 %; Eosinophils # (auto) 0.14 K/uL (0.00-0.50); Eosinophils % (auto) 2.3 %; Hematocrit (blood only) 31.8 % (42.0-52.0); Hemoglobin 10.7 g/dl (14.0-18.0); Immature Granulocytes # (auto) 0.04 K/uL (0.01-0.20); Immature Granulocytes % (auto) 0.7 %; Lymphocytes # (auto) 0.87 K/uL (1.20-3.40); Lymphocytes % (auto) 14.3 %; Mean Corpuscular Hemoglobin 31.6 pg (25.0-34.0); Mean Corpuscular Hgb Conc 33.6 g/dL (32.0-36.0); Mean Corpuscular Volume 93.8 fL (80.0-100.0); Mean Platelet Volume 9.6 fL (9.4-12.4); Monocytes # (auto) 0.65 K/uL (0.11-0.59); Monocytes % (auto) 10.7 %; Neutrophils # (auto) 4.34 K/uL (1.40-6.50); Neutrophils % (auto) 71.5 %; Platelet Count 149 K/uL (130-400); RDW Coefficient of Variation 12.8 % (11.5-14.5); RDW Standard Deviation 43.9 fL (36.4-46.3); Red Blood Count 3.39 M/uL (4.70-6.10); White Blood Count 6.07 K/ul (4.8-10.8)
[2025-01-06 05:39] LABS: BUN Creatinine Ratio 15.7 (10-20); Calcium 7.6 mg/dl (8.6-10.3); Creatinine Clr Calc Pharmacy 37.3 ml/min; Magnesium 2.2 mg/dl (1.7-2.4); Potassium 3.4 mmol/L (3.5-5.1)
[2025-01-06] MEDS: PROPRANOLOL HCL 20 MG TAB PO SCH (06:09)
[2025-01-06] MEDS: VANCOMYCIN HCL 1,500 MG in SODIUM CHLORIDE 0.9% 500 ML IV SCH (08:03)
[2025-01-06] MEDS: POTASSIUM CHLORIDE 10 MEQ TABCR PO ONE (08:33)
[2025-01-06] MEDS: LACTATED RINGER'S 1,000 ML IV SCH (08:33)
[2025-01-06] MEDS: FINASTERIDE 5 MG TAB PO SCH (08:34)
[2025-01-06] MEDS: PANTOprazole 40 MG TAB PO SCH (08:34)
[2025-01-06] MEDS: CYANOCOBALAMIN (B-12) 500 MCG TABLET PO SCH (08:34)
[2025-01-06] MEDS: TAMSULOSIN HCL 0.4 MG CAP PO SCH (10:24)
--- NOTE | 2025-01-06 11:55 | Urology Consultation ---
Date of Consultation January 06, 2025 Assessment & Plan (1) Incomplete emptying of bladder: (2) UTI (urinary tract infection): (3) History of nephroureterectomy: (4) Cancer of right kidney: Plan 84yo male with a hx of renal cancer s/p right nephroureterectomy November [address] Edwards of [facility] who is admitted with sepsis/complicated UTI. Urology consulted for urinary retention Pt afebrile with stable vitals at present Labs reviewed -WBCs 6.07, Creatinine 1.78 (1.81 on admit) Urine and blood cultures pending, on Zosyn Pt was bladder scanned for PVR 597ml today and refused straight cath per notes Discussed risks of incomplete emptying/urinary retention especially in the setting of infection and solitary kidney. Also discussed intermittent catheterization vs Marlow catheter placement. We discussed that with PVRs >400ml our recommendation would be for Marlow catheter placement for max drainage/bladder decompression. He refuses catheterization at this time and prefers continued monitoring for now. Risks of this again discussed. Would recommend continuing to monitor ability to void and bladder scan/PVRs If he does agree to catheter placement, would recommend maintaining for at least 1 week while treating infection Continue tamsulosin and finasteride Recommend he follow-up with his primary urologist following discharge. Urology will sign off, can recall as needed History of Present Illness Attending Physician: Anselmo Caballero MD History of Present Illness 84 year old male with a PMHx significant for renal cancer s/p right nephroureterectomy [address] Edwards of [facility] who presented to the ED with generalized weakness and fevers. Per notes, he is currently undergoing immunotherapy every 2 weeks with IV nivolumab (Opdivo) for treatment of urothelial carcinoma of the right kidney with his most recent treatment being 01/04/2025. Follows with Dr. Winter of [facility] hematology/oncology. Has had ongoing dysuria since his last cystoscopy October [address] Edwards. Reported he has been undergoing surveillance cystoscopy every 3 months to check for lower urinary tract recurrence with most recent showing no evidence of bladder recurrence. Was being treated outpatient for UTI with Macrobid. Urology was consulted for urinary retention. Patient was bladder scan for PVR of 597 mL today. He refused straight catheterization per notes. He does have a history of BPH on dual therapy. Pt was seen at bedside today. Awake and resting in bed on arrival. No acute distress. Reports he is voiding spontaneously and does not want catheterization at this point. Has had difficulty emptying his bladder but feels this is due to using the urinal. He does report some mild dysuria. Denies hematuria. States he had a catheter before and it was very uncomfortable. Allergies Allergy/AdvReac Type Severity Reaction Status Date / Time onabotulinumtoxinA Allergy Severe trouble Verified 12/08/23 00:36 [From Botox] swallowing/ headache azelastine Allergy Intermediate panic Verified 12/08/23 00:36 attack/ depression Home Medications Medication Instructions Recorded Confirmed Type cyanocobalamin (vitamin B-12) 1,000 mcg PO DAILY 05/12/18 01/05/25 History 1,000 mcg tablet (Vitamin B-12) fluticasone propionate 50 1 spray intranasal DAILY PRN SINUS 05/12/18 01/05/25 History mcg/actuation nasal CONGESTION spray,suspension (Flonase Allergy Relief) finasteride 5 mg tablet 5 mg PO QAM 06/21/22 01/05/25 History Wheeled Walker #1 ea 07/30/22 01/05/25 Rx Wheeled Walker #1 ea 07/30/22 01/05/25 Rx albuterol sulfate 90 mcg/actuation 90 mcg inhalation QID PRN sob 09/18/22 01/05/25 History aerosol inhaler lorazepam 0.5 mg tablet 0.25 mg PO HS 09/18/22 01/05/25 History propranolol 10 mg tablet 40 mg PO BID 09/18/22 01/05/25 History tamsulosin 0.4 mg capsule 0.4 mg PO QAM 09/18/22 01/05/25 History bupropion HCl 100 mg tablet 50 mg PO BID 10/22/23 01/05/25 History metaxalone 800 mg tablet 800 mg PO QPM 10/22/23 01/05/25 History mirtazapine 15 mg tablet 15 mg PO HS 10/22/23 01/05/25 History budesonide 32 mcg/actuation nasal 1 spray intranasal QAM PRN Other 12/08/23 01/05/25 History spray meclizine 25 mg tablet 25 mg PO TID PRN Dizziness 12/08/23 01/05/25 History metaxalone 800 mg tablet 400 - 800 mg PO BID PRN Pain 12/08/23 01/05/25 History metoclopramide HCl 10 mg tablet 10 mg PO Q6H PRN Nausea 12/08/23 01/05/25 History rimegepant 75 mg disintegrating 75 mg PO Q2D PRN .head and neck 12/08/23 01/05/25 History tablet pain triamcinolone acetonide 0.1 % 1 applic topical BID PRN Skin 12/08/23 01/05/25 History topical ointment Irritation esomeprazole magnesium 40 mg 40 mg PO QAM 01/05/25 01/05/25 History capsule,delayed release lidocaine-prilocaine 2.5 %-2.5 % 1 applic topical DIRECTED PRN 01/05/25 01/05/25 History topical cream Other nitrofurantoin 100 mg PO BID 01/05/25 01/05/25 History monohydrate/macrocrystals 100 mg capsule polyethylene glycol 3350 17 17 g PO DAILY PRN Constipation 01/05/25 01/05/25 History gram/dose oral powder (Miralax) sennosides 8.6 mg tablet (Senokot) 8.6 mg PO DAILY PRN Constipation 01/05/25 01/05/25 History Patient History Medical History Post-op pain 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 following with Dr Edwards at [facility]. Asthma controlled, stable; last rescue inhaler use (uses it for wheezing - ~10/18/23) Prediabetes pt denies History of COVID-19 05/2021- asymptomatic Migraine No longer on Botox treatment secondary to reaction Hearing deficit hearing aids bilat Dysphagia denies choking History of kidney stones Tinnitus Lumbar spinal stenosis BPH (benign prostatic hyperplasia) Chronic tension type headache Barretts esophagus Follows with [facility] GERD (gastroesophageal reflux disease) controlled, stable per pt Attention deficit disorder (ADD) Anxiety Surgical History Status post biopsy of kidney [facility] 08/2023 positive for renal cell carcinoma History of cataract surgery bilateral Status post left knee replacement S/P epidural steroid injection S/P right knee arthroscopy S/P left knee arthroscopy History of colonoscopy with polypectomy History of esophagogastroduodenoscopy (EGD) History of cystoscopy History of lithotripsy History of carpal tunnel release right H/O arthroscopy of shoulder right with bone spur removal Family History Father Cancer Family hx of colon cancer Mother Cancer Sister Rheumatic fever with cardiac involvement Family history of diabetes mellitus Son Family hx of colon cancer Other No family history of adverse response to anesthesia Social History Smoking Status: Former smoker Tobacco Type: Cigarettes Second Hand Exposure: No; Do You Dip or Chew Tobacco: No; Hx Alcohol Use: Yes Alcohol type: beer Hx Substance Use: No Preferred Language: Faroese Communication Ability: Effective Business Functional Analyst Required: No Beliefs That Will Affect Care: None marital status: Current Living Situation: Spouse Current Living Situation Comment: home current occupational status: retired 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 other: Patient ambulates without assist device, exercises on stationary bike 3 times per week Feels Safe at Home: Yes Assistive Devices: Walker Review of Systems Review of Systems: All systems reviewed & are unremarkable except as noted in HPI & below Physical Exam Constitutional: no acute distress Respiratory: no respiratory distress and no labored breathing Musculoskeletal: Head/Neck/Chest: normocephalic Skin: No visible rashes or lesions to exposed skin areas Neurologic: moves all extremities and awake Psychiatric: A+Ox3, euthymic affect Results & Data Vital Signs (Past 12 Hours) Vital Signs Temp Pulse Pulse Resp BP Pulse Ox O2 Del Method 01/06/25 11:05 36.3 C L 61 18 126/75 96 Room Air 01/06/25 08:00 Room Air 01/06/25 07:20 36.6 C 60 18 157/84 H 95 Room Air 01/06/25 07:00 64 01/06/25 06:56 63 18 97 Room Air 01/06/25 03:22 36.4 C L 69 18 100/54 L 92 Room Air 01/06/25 00:33 61 18 98 Room Air PG Care Time/CCT Total # of Minutes Spent Total Time Spent with Patient: Total time spent is greater than 50% in coordination of care (as documented) at patient's floor/unit and/or counseling patient: Coding Level of Care Code 14915 INT INP/OBS CARE 2/55MIN Diagnoses Incomplete emptying of bladder R33.9 Urinary tract infection without hematuria, site unspecified N39.0 Hematuria presence: without hematuria Urinary tract infection type: site unspecified History of nephroureterectomy Z90.5; Z90.6 Cancer of right kidney C64.1 (2) UTI (urinary tract infection) Hematuria presence: without hematuria Urinary tract infection type: site unspecified Qualified Code(s): N39.0 - Urinary tract infection, site not specified
--- NOTE | 2025-01-06 12:19 | Hospitalist Progress Note ---
Date of Service January 06, 2025 Assessment & Plan (1) Sepsis: (2) UTI (urinary tract infection): Plan: Mr. Gutiérrez is an 84y/o M with PMHx significant for prediabetes, hypercalcemia previously requiring Zometa therapy, mild intermittent asthma, HTN, Barretts esophagus, GERD, BPH with LUTS, urothelial carcinoma of right kidney s/p right- sided hand assisted laparoscopic radical nephroureterectomy and intravesical instillation of mitomycin-C in November 2023, CKD stage IIIb, chronic headaches, bilateral occipital neuralgia, chronic balance changes and ataxia in the setting of lumbago-sciatica, depression and FAHAD who presented to the ED with multiple complaints including generalized weakness and fevers. Sepsis Complicated urinary tract infection Immunocompromise state Renal cancer S/P right nephroureterectomy, intravesical Mitomycin-C Currently undergoing immunotherapy IV nivolumab (Opdivo) H/O BPH Urinary retention--refuses Marlow catheter Urine culture pending Blood culture--no growth to date Empirically on Zosyn Monitor bladder scan Continue gentle IV fluids Requested urology evaluation Continue Flomax, finasteride (3) Cancer of right kidney: (4) History of nephroureterectomy: Plan: Currently undergoing immunotherapy every 2 weeks with IV nivolumab (Opdivo) for treatment of urothelial carcinoma of the right kidney with his most recent treatment being yesterday, 01/04/2025. Follows with Dr. Winter of [facility] hematology/oncology. Recently had PET scan done last month which was personally reviewed. No FDG PET- CT evidence of recurrent or metastatic disease noted. Follows with Dr. Edwards of [facility] urology. He has been undergoing monitoring cystoscopies every 3 months to check for lower urinary tract recurrence. Most recent cystoscopy in October 2024 without evidence of bladder recurrence. (5) Stage 3b chronic kidney disease (CKD): Plan: Cr stable, baseline Cr around 1.6-2.0 as pe outpatient r chart review. Avoid nephrotoxic agents when able. Monitor renal function closely Creatinine at baseline Left lung base pulmonary nodule Incidental finding on CT Follow-up as outpatient (6) Hypertension: Plan: Continue home medications propranolol, tamsulosin Monitor blood pressure Other Chronic Medical Conditions: Evans's Esophagus/GERD - Continue PPI FAHAD/Depression - Continue Wellbutrin, Remeron. BPH with LUTS - Continue Flomax, Proscar Prediabetes - Hgb A1c 5.6% 1 month ago H/O Migraines - [facility] DVT Px: SQ Heparin Code Status: Full Code Admission and Anticipated Discharge Date Admission Date: January 05, 2025 Subjective Patient is seen and examined at bedside States feeling better today Chills resolved Still has minimal dysuria, denies hematuria Also denies any chest pain, dyspnea, nausea, vomiting, abdominal pain Noted to have urinary retention, refuses Marlow Review of Systems Review of Systems: All systems reviewed & are unremarkable except as noted in Subjective Physical Exam Physical Exam: Physical Exam: Vitals signs as noted above General Appearance:Obese, no apparent distress Head: normocephalic, Atraumatic Eyes: normal inspection, EOMI Neck: supple, Trachea midline Respiratory/Chest: Normal breath sounds, CTA, No accessory muscle use Cardiovascular: S1, S2, No murmur Abdomen/GI:Soft, Non tender,+Protuberant, Bowel sounds present Extremities/Musculoskeletal:normal inspection, no edema Neurologic/Psych:AAOX3, grossly no focal neurological deficits,+decreased hearing Skin: normal color, warm Results & Data Results & Data Vital Signs (Past 12 Hours) Vital Signs Temp Pulse Pulse Resp BP Pulse Ox O2 Del Method 01/06/25 11:05 36.3 C L 61 18 126/75 96 Room Air 01/06/25 08:00 Room Air 01/06/25 07:20 36.6 C 60 18 157/84 H 95 Room Air 01/06/25 07:00 64 01/06/25 06:56 63 18 97 Room Air 01/06/25 03:22 36.4 C L 69 18 100/54 L 92 Room Air 01/06/25 00:33 61 18 98 Room Air Laboratory Results Short CBC 01/06/25 Range/Units 05:04 WBC 6.07 (4.8-10.8) K/ul Hgb 10.7 L (14.0-18.0) g/dl Hct 31.8 L (42.0-52.0) % Plt Count 149 (130-400) K/uL BMP 01/06/25 05:04 Sodium 139 Potassium 3.4 L Chloride 114 H Carbon Dioxide 20 L BUN 28 H Creatinine 1.78 H Glucose 108 H Calcium 7.6 L Urine 01/05/25 Range/Units 12:00 Urine Color Dark Yellow Urine Appearance Cloudy A (Clear) Urine pH 6.0 (4.5-7.5) Ur Specific [place] 1.024 (1.000-1.030) Urine Protein 2+ H (Negative) Urine Glucose (UA) Negative (Negative) (1) Sepsis Sepsis type: sepsis due to unspecified organism Sepsis acute organ dysfunction status: unspecified Qualified Code(s): A41.9 - Sepsis, unspecified organism (2) UTI (urinary tract infection) Urinary tract infection type: site unspecified Hematuria presence: without hematuria Qualified Code(s): N39.0 - Urinary tract infection, site not specified (6) Hypertension Hypertension type: unspecified Qualified Code(s): I10 - Essential (primary) hypertension
[2025-01-06] MEDS: ALBUT/IPRATROP 3MG/0.5MG NEB 3 ML VIAL NEB PRN (12:21)
[2025-01-07 06:13] LABS: Hematocrit (blood only) 34.8 % (42.0-52.0); Hemoglobin 11.7 g/dl (14.0-18.0); Mean Corpuscular Hemoglobin 31.2 pg (25.0-34.0); Mean Corpuscular Hgb Conc 33.6 g/dL (32.0-36.0); Mean Corpuscular Volume 92.8 fL (80.0-100.0); Mean Platelet Volume 9.8 fL (9.4-12.4); Platelet Count 204 K/uL (130-400); RDW Coefficient of Variation 12.8 % (11.5-14.5); RDW Standard Deviation 43.7 fL (36.4-46.3); Red Blood Count 3.75 M/uL (4.70-6.10); White Blood Count 7.97 K/ul (4.8-10.8)
[2025-01-07 06:34] LABS: BUN Creatinine Ratio 13.1 (10-20); Calcium 8.3 mg/dl (8.6-10.3); Creatinine Clr Calc Pharmacy 37.7 ml/min; Magnesium 2.2 mg/dl (1.7-2.4); Potassium 3.9 mmol/L (3.5-5.1)
[2025-01-07] MEDS: amLODIPine BESYLATE 5 MG TAB PO SCH (09:36)
--- NOTE | 2025-01-07 13:53 | Hospitalist Progress Note ---
Date of Service January 07, 2025 Assessment & Plan (1) Sepsis: (2) UTI (urinary tract infection): Plan: Mr. Gutiérrez is an 84y/o M with PMHx significant for prediabetes, hypercalcemia previously requiring Zometa therapy, mild intermittent asthma, HTN, Barretts esophagus, GERD, BPH with LUTS, urothelial carcinoma of right kidney s/p right- sided hand assisted laparoscopic radical nephroureterectomy and intravesical instillation of mitomycin-C in November 2023, CKD stage IIIb, chronic headaches, bilateral occipital neuralgia, chronic balance changes and ataxia in the setting of lumbago-sciatica, depression and FAHAD who presented to the ED with multiple complaints including generalized weakness and fevers. Sepsis Complicated urinary tract infection Immunocompromise state Renal cancer S/P right nephroureterectomy, intravesical Mitomycin-C Currently undergoing immunotherapy IV nivolumab (Opdivo) H/O BPH Urinary retention--refuses Marlow catheter Urine culture: 3 types of organisms, noncontributory Blood culture--no growth to date Empirically on Zosyn>> transition to oral antibiotics tomorrow Monitor bladder scan Received IV fluids Appreciate urology input Continue Flomax, finasteride Place Marlow catheter today if patient agrees Needs follow-up with urology on discharge (3) Cancer of right kidney: (4) History of nephroureterectomy: Plan: Currently undergoing immunotherapy every 2 weeks with IV nivolumab (Opdivo) for treatment of urothelial carcinoma of the right kidney with his most recent treatment being yesterday, 01/04/2025. Follows with Dr. Winter of [facility] hematology/oncology. Recently had PET scan done last month which was personally reviewed. No FDG PET- CT evidence of recurrent or metastatic disease noted. Follows with Dr. Edwards of [facility] urology. He has been undergoing monitoring cystoscopies every 3 months to check for lower urinary tract recurrence. Most recent cystoscopy in October 2024 without evidence of bladder recurrence. (5) Stage 3b chronic kidney disease (CKD): Plan: Cr stable, baseline Cr around 1.6-2.0 as pe outpatient r chart review. Avoid nephrotoxic agents when able. Monitor renal function closely Creatinine at baseline Left lung base pulmonary nodule Incidental finding on CT Follow-up as outpatient (6) Hypertension: Plan: Continue home medications propranolol, tamsulosin Monitor blood pressure Other Chronic Medical Conditions: Evans's Esophagus/GERD - Continue PPI FAHAD/Depression - Continue Wellbutrin, Remeron. BPH with LUTS - Continue Flomax, Proscar Prediabetes - Hgb A1c 5.6% 1 month ago H/O Migraines - [facility] DVT Px: SQ Heparin Code Status: Full Code Disposition Plans to return home on discharge Likely tomorrow Admission and Anticipated Discharge Date Admission Date: January 05, 2025 Subjective Patient is seen and examined at bedside Continues to feel better No new complaints today Discussed in detail with patient's family at bedside Dysuria resolved Denies any chest pain, dyspnea, nausea, vomiting, abdominal pain Review of Systems Review of Systems: All systems reviewed & are unremarkable except as noted in Subjective Physical Exam Physical Exam: Physical Exam: Vitals signs as noted above General Appearance:Obese, no apparent distress Head: normocephalic, Atraumatic Eyes: normal inspection, EOMI Neck: supple, Trachea midline Respiratory/Chest: Normal breath sounds, CTA, No accessory muscle use Cardiovascular: S1, S2, No murmur Abdomen/GI:Soft, Non tender,+Protuberant, Bowel sounds present Extremities/Musculoskeletal:normal inspection, no edema Neurologic/Psych:AAOX3, grossly no focal neurological deficits,+decreased hearing Skin: normal color, warm Results & Data Results & Data Vital Signs (Past 12 Hours) Vital Signs Temp Pulse Pulse Resp BP Pulse Ox O2 Del Method 01/07/25 12:03 36.3 C L 57 L 18 168/83 H 97 Room Air 01/07/25 09:00 61 01/07/25 09:00 Room Air 01/07/25 07:46 36.6 C 62 18 179/69 H 95 Room Air 01/07/25 03:01 36.6 C 66 18 133/74 95 Room Air Laboratory Results Short CBC 01/07/25 Range/Units 05:17 WBC 7.97 (4.8-10.8) K/ul Hgb 11.7 L (14.0-18.0) g/dl Hct 34.8 L (42.0-52.0) % Plt Count 204 (130-400) K/uL BMP 01/07/25 05:17 Sodium 140 Potassium 3.9 Chloride 115 H Carbon Dioxide 18 L BUN 23 Creatinine 1.76 H Glucose 104 H Calcium 8.3 L (1) Sepsis Sepsis type: sepsis due to unspecified organism Sepsis acute organ dysfunction status: unspecified Qualified Code(s): A41.9 - Sepsis, unspecified organism (2) UTI (urinary tract infection) Urinary tract infection type: site unspecified Hematuria presence: without hematuria Qualified Code(s): N39.0 - Urinary tract infection, site not specified (6) Hypertension Hypertension type: unspecified Qualified Code(s): I10 - Essential (primary) hypertension
[2025-01-07] MEDS: ADVANCED PROBIOTIC 625 MG CAPSULE PO SCH (15:20)
[2025-01-07] MEDS: amLODIPine BESYLATE 5 MG TAB PO ONE (15:20)
[2025-01-07 19:35] VITALS: RESP 20
[2025-01-08 07:45] LABS: Hematocrit (blood only) 35.4 % (42.0-52.0); Hemoglobin 11.9 g/dl (14.0-18.0); Mean Corpuscular Hemoglobin 31.6 pg (25.0-34.0); Mean Corpuscular Hgb Conc 33.6 g/dL (32.0-36.0); Mean Corpuscular Volume 93.9 fL (80.0-100.0); Mean Platelet Volume 10.1 fL (9.4-12.4); Platelet Count 226 K/uL (130-400); RDW Coefficient of Variation 12.8 % (11.5-14.5); RDW Standard Deviation 44.3 fL (36.4-46.3); Red Blood Count 3.77 M/uL (4.70-6.10); White Blood Count 7.45 K/ul (4.8-10.8)
[2025-01-08] MEDS: amLODIPine BESYLATE 5 MG TAB PO SCH (08:01)
[2025-01-08] MEDS: AMOXICILLIN 875 MG TAB PO SCH (08:01)
[2025-01-08 08:08] LABS: BUN Creatinine Ratio 10.8 (10-20); Calcium 8.6 mg/dl (8.6-10.3); Creatinine Clr Calc Pharmacy 39.7 ml/min; Potassium 3.7 mmol/L (3.5-5.1)
[2025-01-08 10:49] VITALS: BP 143/73; PULSE 62; TEMP 98.1; O2SAT 96
--- NOTE | 2025-01-08 12:32 | Hospitalist Progress Note ---
Date of Service January 08, 2025 Assessment & Plan (1) Sepsis: (2) UTI (urinary tract infection): Plan: Mr. Gutiérrez is an 84y/o M with PMHx significant for prediabetes, hypercalcemia previously requiring Zometa therapy, mild intermittent asthma, HTN, Barretts esophagus, GERD, BPH with LUTS, urothelial carcinoma of right kidney s/p right- sided hand assisted laparoscopic radical nephroureterectomy and intravesical instillation of mitomycin-C in November 2023, CKD stage IIIb, chronic headaches, bilateral occipital neuralgia, chronic balance changes and ataxia in the setting of lumbago-sciatica, depression and FAHAD who presented to the ED with multiple complaints including generalized weakness and fevers. Sepsis Complicated urinary tract infection Immunocompromise state Renal cancer S/P right nephroureterectomy, intravesical Mitomycin-C Currently undergoing immunotherapy IV nivolumab (Opdivo) H/O BPH Urinary retention Urine culture: 3 types of organisms, noncontributory Blood culture--no growth to date Empirically on Zosyn>> transition to oral antibiotics on discharge to complete the course Received IV fluids Appreciate urology input Continue Flomax, finasteride Marlow catheter placed on 01/07/2025 as recommended by urology Advised to follow-up with urology on discharge Plan to discharge home today (3) Cancer of right kidney: (4) History of nephroureterectomy: Plan: Currently undergoing immunotherapy every 2 weeks with IV nivolumab (Opdivo) for treatment of urothelial carcinoma of the right kidney with his most recent treatment being yesterday, 01/04/2025. Follows with Dr. Winter of [facility] hematology/oncology. Recently had PET scan done last month which was personally reviewed. No FDG PET- CT evidence of recurrent or metastatic disease noted. Follows with Dr. Edwards of [facility] urology. He has been undergoing monitoring cystoscopies every 3 months to check for lower urinary tract recurrence. Most recent cystoscopy in October 2024 without evidence of bladder recurrence. (5) Stage 3b chronic kidney disease (CKD): Plan: Cr stable, baseline Cr around 1.6-2.0 as pe outpatient r chart review. Avoid nephrotoxic agents when able. Monitor renal function closely Creatinine at baseline Left lung base pulmonary nodule Incidental finding on CT Follow-up as outpatient (6) Hypertension: Plan: Continue home medications propranolol, tamsulosin Monitor blood pressure Other Chronic Medical Conditions: Evans's Esophagus/GERD - Continue PPI FAHAD/Depression - Continue Wellbutrin, Remeron. BPH with LUTS - Continue Flomax, Proscar Prediabetes - Hgb A1c 5.6% 1 month ago H/O Migraines - [facility] DVT Px: SQ Heparin Code Status: Full Code Disposition Home Admission and Anticipated Discharge Date Admission Date: January 05, 2025 Subjective Patient is seen and examined at bedside Reports having minimal dysuria but otherwise no complaints. Eager to get discharged today Denies any chest pain, dyspnea, nausea, vomiting, abdominal pain Plan to discharge home today Review of Systems Review of Systems: All systems reviewed & are unremarkable except as noted in Subjective Physical Exam Physical Exam: Physical Exam: Vitals signs as noted above General Appearance:Obese, no apparent distress Head: normocephalic, Atraumatic Eyes: normal inspection, EOMI Neck: supple, Trachea midline Respiratory/Chest: Normal breath sounds, CTA, No accessory muscle use Cardiovascular: S1, S2, No murmur Abdomen/GI:Soft, Non tender,+Protuberant, Bowel sounds present Extremities/Musculoskeletal:normal inspection, no edema Neurologic/Psych:AAOX3, grossly no focal neurological deficits,+decreased hearing Skin: normal color, warm Results & Data Results & Data Vital Signs (Past 12 Hours) Vital Signs Temp Pulse Pulse Resp BP BP Pulse Ox 01/08/25 10:42 36.7 C 62 20 143/73 H 96 01/08/25 10:39 55 L 01/08/25 09:00 01/08/25 07:13 36.4 C L 57 L 20 154/80 H 97 01/08/25 03:10 36.4 C L 61 20 152/83 H 95 O2 Del Method 01/08/25 10:42 Room Air 01/08/25 10:39 01/08/25 09:00 Room Air 01/08/25 07:13 Room Air 01/08/25 03:10 Room Air Laboratory Results Short CBC 01/08/25 Range/Units 06:45 WBC 7.45 (4.8-10.8) K/ul Hgb 11.9 L (14.0-18.0) g/dl Hct 35.4 L (42.0-52.0) % Plt Count 226 (130-400) K/uL BMP 01/08/25 06:45 Sodium 140 Potassium 3.7 Chloride 114 H Carbon Dioxide 19 L BUN 18 Creatinine 1.67 H Glucose 103 H Calcium 8.6 (1) Sepsis Sepsis type: sepsis due to unspecified organism Sepsis acute organ dysfunction status: unspecified Qualified Code(s): A41.9 - Sepsis, unspecified organism (2) UTI (urinary tract infection) Urinary tract infection type: site unspecified Hematuria presence: without he maturia Qualified Code(s): N39.0 - Urinary tract infection, site not specified (6) Hypertension Hypertension type: unspecified Qualified Code(s): I10 - Essential (primary) hypertension
--- NOTE | 2025-01-08 12:38 | Discharge Summary ---
Date of Service January 08, 2025 Admission HPI Per Admitting Provider Mr. Gutiérrez is an 84y/o M with PMHx significant for prediabetes, hypercalcemia previously requiring Zometa therapy, mild intermittent asthma, HTN, Barretts esophagus, GERD, BPH with LUTS, urothelial carcinoma of right kidney s/p right- sided hand assisted laparoscopic radical nephroureterectomy and intravesical instillation of mitomycin-C in November 2023, CKD stage IIIb, chronic headaches, bilateral occipital neuralgia, chronic balance changes and ataxia in the setting of lumbago-sciatica, depression and FAHAD who presented to the ED with multiple complaints including generalized weakness and fevers. History obtained from the patient, patient's at bedside, discussion with ED provider and associated chart review. Endorses worsening generalized weakness since the weekend as well as intermittent fevers and chills with Tmax of 102F earlier this morning. Has had a nonproductive cough for the past 1-2 weeks. Has some chronic SOB with exertion which feels unchanged from baseline. Currently undergoing immunotherapy every 2 weeks with IV nivolumab (Opdivo) for treatment of urothelial carcinoma of the right kidney with his most recent treatment being yesterday, 01/04/2025. Follows with Dr. Winter of [facility] hematology/oncology. Currently being treated for a UTI with oral Macrobid. Has 1 dose left. Did not take any of his medications this morning. Urine culture from 12/21/2024 grew Aerococcus sanguinicola. No available culture sensitives. Endorses ongoing dysuria. This has been occurring since his cystoscopy done in October 2024 with [facility] urologist, Dr. Edwards. He has been undergoing monitoring cystoscopies every 3 months to check for lower urinary tract recurrence. Most recent cystoscopy without evidence of bladder recurrence. Recently had PET scan done last month which was personally reviewed. No FDG PET- CT evidence of recurrent or metastatic disease noted. Former smoker. Occasional alcohol use. No recreational drug use. Febrile and tachypneic in the ED however remained saturating well on RA. Labs personally reviewed. Mild leukocytosis. Lactate negative. Procalcitonin elevated at 6.98. UA with obvious evidence of infection. Nasal MRSA negative. Respiratory BioFire panel negative. CXR and chest CT without evidence of PNA. Admission Exam Per Admitting Provider General: Elderly, M. NAD. Sitting up in bed. Very [place]. A&Ox4. present at bedside. HEENT: Normocephalic, atraumatic. Conjunctivae normal. External ear and nose normal, oropharynx dry. Respiratory: Normal respiratory effort. + diffuse wheezing. Saturating in the mid to upper 90s on RA. No accessory muscle use. Cardiovascular: Regular rate and rhythm. Normal peripheral pulses, no BLE edema. Abdomen/GI: Normal bowel sounds, soft, nondistended, nontender to palpation in all quadrants. Extremities/MSK: No cyanosis or clubbing, extremities motor strength intact, actively moves all extremities. Right upper chest Port-A-Cath site without any evidence of drainage or overlying erythema. No tenderness with palpation of Port-A-Cath site. Neurologic: No overt focal deficits. CN's II-XI not formally tested but appear grossly intact bilaterally. Principal Diagnosis Sepsis Complicated urinary tract infection Immunocompromise state Renal cancer Urinary retention Hypertension Discharge Data Allergies Allergy/AdvReac Type Severity Reaction Status Date / Time onabotulinumtoxinA Allergy Severe trouble Verified 12/08/23 00:36 [From Botox] swallowing/ headache azelastine Allergy Intermediate panic Verified 12/08/23 00:36 attack/ depression Consultations 01/05/25 10:23 ED Decision to Admit Stat 01/06/25 09:41 Consult Urology Routine Procedures Performed Laboratory Results WBC 7.45 K/ul (4.8-10.8) 01/08/25 06:45 RBC 3.77 M/uL (4.70-6.10) L 01/08/25 06:45 Hgb 11.9 g/dl (14.0-18.0) L 01/08/25 06:45 Hct 35.4 % (42.0-52.0) L 01/08/25 06:45 MCV 93.9 fL (80.0-100.0) 01/08/25 06:45 MCH 31.6 pg (25.0-34.0) 01/08/25 06:45 MCHC 33.6 g/dL (32.0-36.0) 01/08/25 06:45 RDW Std Deviation 44.3 fL (36.4-46.3) 01/08/25 06:45 RDW Coeff of Moris 12.8 % (11.5-14.5) 01/08/25 06:45 Plt Count 226 K/uL (130-400) 01/08/25 06:45 MPV 10.1 fL (9.4-12.4) 01/08/25 06:45 Immature Gran % (Auto) 0.7 % 01/06/25 05:04 Neut % (Auto) 71.5 % 01/06/25 05:04 Lymph % (Auto) 14.3 % 01/06/25 05:04 [place] % (Auto) 10.7 % 01/06/25 05:04 Eos % (Auto) 2.3 % 01/06/25 05:04 Baso % (Auto) 0.5 % 01/06/25 05:04 Neut # (Auto) 4.34 K/uL (1.40-6.50) 01/06/25 05:04 Lymph # (Auto) 0.87 K/uL (1.20-3.40) L 01/06/25 05:04 [place] # (Auto) 0.65 K/uL (0.11-0.59) H 01/06/25 05:04 Eos # (Auto) 0.14 K/uL (0.00-0.50) 01/06/25 05:04 Baso # (Auto) 0.03 K/uL (0.00-0.20) 01/06/25 05:04 Immature Gran # (Auto) 0.04 K/uL (0.01-0.20) 01/06/25 05:04 Sodium 140 mmol/L (136-145) 01/08/25 06:45 Potassium 3.7 mmol/L (3.5-5.1) 01/08/25 06:45 Chloride 114 mmol/L (98-107) H 01/08/25 06:45 Carbon Dioxide 19 mmol/L (21-32) L 01/08/25 06:45 Anion Gap 7 (3-11) 01/08/25 06:45 BUN 18 mg/dl (6-23) 01/08/25 06:45 Creatinine 1.67 mg/dl (0.6-1.4) H 01/08/25 06:45 Est Cr Clr Drug Dosing 39.7 ml/min 01/08/25 06:45 eGFR 40.11 01/08/25 06:45 BUN/Creatinine Ratio 10.8 (10-20) 01/08/25 06:45 Glucose 103 mg/dl (70-99(Fasting)) H 01/08/25 06:45 Lactate 1.2 mmol/L (0.4-2.0) 01/05/25 10:34 Calcium 8.6 mg/dl (8.6-10.3) 01/08/25 06:45 Magnesium 2.2 mg/dl (1.7-2.4) 01/07/25 05:17 Total Bilirubin 0.9 mg/dl (0.2-1.0) 01/05/25 06:45 AST 27 U/L (13-39) 01/05/25 06:45 ALT 20 U/L (7-52) 01/05/25 06:45 Alkaline Phosphatase 56 U/L (34-104) 01/05/25 06:45 Troponin I High Sens 13.7 pg/ml (0-20) 01/05/25 06:45 Total Protein 7.3 gm/dl (6.0-8.3) 01/05/25 06:45 Albumin 3.9 gm/dl (3.4-5.0) 01/05/25 06:45 Globulin 3.4 gm/dl (2.5-4.0) 01/05/25 06:45 Albumin/Globulin Ratio 1.1 (0.9-2) 01/05/25 06:45 Procalcitonin 6.98 ng/ml (0-0.5) H 01/05/25 10:32 Urine Color Dark Yellow 01/05/25 12:00 Urine Appearance Cloudy (Clear) A 01/05/25 12:00 Urine pH 6.0 (4.5-7.5) 01/05/25 12:00 Ur Specific Cosmos 1.024 (1.000-1.030) 01/05/25 12:00 Urine Protein 2+ (Negative) H 01/05/25 12:00 Urine Glucose (UA) Negative (Negative) 01/05/25 12:00 Urine Ketones 1+ (Negative) H 01/05/25 12:00 Urine Blood Trace (Negative) H 01/05/25 12:00 Urine Nitrite Negative (Negative) 01/05/25 12:00 Urine Bilirubin Negative (Negative) 01/05/25 12:00 Urine Urobilinogen Negative (Negative) 01/05/25 12:00 Ur Leukocyte Esterase 1+ (Negative) H 01/05/25 12:00 Urine WBC (Auto) 21-50 /hpf (0-5) H 01/05/25 12:00 Urine RBC (Auto) 3-5 /hpf (0-2) H 01/05/25 12:00 U Hyaline Cast (Auto) 0-2 /lpf (0-2) 01/05/25 12:00 U Epithel Cells (Auto) 0-2 /hpf (0-2) 01/05/25 12:00 Urine Bacteria (Auto) 4+ (None Seen) H 01/05/25 12:00 Nasal Screen MRSA (PCR) Negative (Negative) 01/05/25 11:58 Random Vancomycin 10.1 mcg/ml (10-20) 01/06/25 05:04 Adenovirus (PCR) Not Detected (NotDetected) 01/05/25 11:22 B. pertussis DNA (PCR) Not Detected (NotDetected) 01/05/25 11:22 B.parapertussis DNA PCR Not Detected (NotDetected) 01/05/25 11:22 C. pneumoniae DNA (PCR) Not Detected (NotDetected) 01/05/25 11:22 Coronavirus OC43 (PCR) Not Detected (NotDetected) 01/05/25 11:22 Coronavirus HKU1 (PCR) Not Detected (NotDetected) 01/05/25 11:22 Coronavirus 229E (PCR) Not Detected (NotDetected) 01/05/25 11:22 SARS-CoV-2 (PCR) Not Detected (NotDetected) 01/05/25 11:22 Coronavirus NL63 (PCR) Not Detected (NotDetected) 01/05/25 11:22 Human Metapneumovir PCR Not Detected (NotDetected) 01/05/25 11:22 Influenza Type A (PCR) Not Detected (NotDetected) 01/05/25 11:22 Influenza Type B (PCR) Not Detected (NotDetected) 01/05/25 11:22 M. pneumoniae (PCR) Not Detected (NotDetected) 01/05/25 11:22 Parainfluenza 1 (PCR) Not Detected (NotDetected) 01/05/25 11:22 Parainfluenza 2 (PCR) Not Detected (NotDetected) 01/05/25 11:22 Parainfluenza 3 (PCR) Not Detected (NotDetected) 01/05/25 11:22 Parainfluenza 4 (PCR) Not Detected (NotDetected) 01/05/25 11:22 RSV (PCR) Not Detected (NotDetected) 01/05/25 11:22 Entero/Rhino (PCR) Not Detected (NotDetected) 01/05/25 11:22 Impressions Chest X-Ray 01/05/25 07:03 EXAM: XR chest 1V portable CLINICAL HISTORY: SOB, wheezing, sepsis TECHNIQUE: A portable X-ray image of the chest was obtained in anteroposterior (AP) projection. COMPARISON: Prior CT study dated 12/07/2023 was reviewed. FINDINGS: Right-sided portacath is seen with its tip likely in the right atrium. Pulmonary Parenchyma: Exaggerated bilateral hilar and parahilar bronchovascular markings. Bilateral lower zonal atelectatic bands. Otherwise, the lungs are clear bilaterally. No evidence of consolidation, collapse, or focal opacities. No sizable pulmonary nodules identified. No evidence of pleural effusion or pleural thickening. Heart and Mediastinum: Heart size and shape are normal. No mediastinal masses. Bony Thorax: Bony thorax appears intact without fractures or deformities. Soft Tissues: Soft tissues overlying the chest wall are unremarkable. IMPRESSION: 1. Exaggerated bilateral hilar and parahilar bronchovascular markings could be due to pulmonary congestion; would recommend clinical correlation. 2. Bilateral lower zonal atelectatic bands (matching the prior CT study). 3. Right-sided portacath is seen with its tip likely in the right atrium (newly noted). Electronically signed by Ranjeet Valverde 01-05-2025 08:[address] 01/05/25 11:38 CT chest diagnostic wo con CT DOSE: 971.9 mGy.cm CLINICAL HISTORY: Cough, fever. TECHNIQUE: Multiaxial CT images of the chest were performed without contrast. A dose lowering technique was utilized adhering to the principles of ALARA. COMPARISON STUDY: CT of 12/07/2023 and chest x-ray earlier today FINDINGS: Right chest port tip is at the cavoatrial junction. There are trace airway secretions. There is minimal stable scarring or atelectasis in the lung bases. There is no pulmonary consolidation or pleural effusion. No pneumothorax. No honeycombing or evidence of interstitial lung disease. There is a stable 4 mm nodule lateral left lung base. No interval significant pulmonary nodule. No enlarged adenopathy. No pericardial effusion. There are diffuse coronary artery calcifications. There are moderate thoracic spine degenerative changes. IMPRESSION: 1. No pneumonia or pleural effusion. 2. Otherwise as described. ACT 112: Negative or not required by law. Electronically signed by: Jay Lyn M.D. 01/05/2025 1:01 PM Ordered Studies 01/05/25 11:38 CT chest diagnostic wo con Stat Hospital Course (1) Sepsis: (2) UTI (urinary tract infection): Mr. Gutiérrez is an 84y/o M with PMHx significant for prediabetes, hypercalcemia previously requiring Zometa therapy, mild intermittent asthma, HTN, Barretts esophagus, GERD, BPH with LUTS, urothelial carcinoma of right kidney s/p right- sided hand assisted laparoscopic radical nephroureterectomy and intravesical instillation of mitomycin-C in November 2023, CKD stage IIIb, chronic headaches, bilateral occipital neuralgia, chronic balance changes and ataxia in the setting of lumbago-sciatica, depression and FAHAD who presented to the ED with multiple complaints including generalized weakness and fevers. Sepsis Complicated urinary tract infection Immunocompromise state Renal cancer S/P right nephroureterectomy, intravesical Mitomycin-C Currently undergoing immunotherapy IV nivolumab (Opdivo) H/O BPH Urinary retention Urine culture: 3 types of organisms, noncontributory Blood culture--no growth to date Empirically on Zosyn>> transition to oral antibiotics on discharge to complete the course Received IV fluids Appreciate urology input Continue Flomax, finasteride Marlow catheter placed on 01/07/2025 as recommended by urology Advised to follow-up with urology on discharge Plan to discharge home today (3) Cancer of right kidney: (4) History of nephroureterectomy: Currently undergoing immunotherapy every 2 weeks with IV nivolumab (Opdivo) for treatment of urothelial carcinoma of the right kidney with his most recent treatment being yesterday, 01/04/2025. Follows with Dr. Winter of [facility] hematology/oncology. Recently had PET scan done last month which was personally reviewed. No FDG PET- CT evidence of recurrent or metastatic disease noted. Follows with Dr. Edwards of [facility] urology. He has been undergoing monitoring cystoscopies every 3 months to check for lower urinary tract recurrence. Most recent cystoscopy in October 2024 without evidence of bladder recurrence. (5) Stage 3b chronic kidney disease (CKD): Cr stable, baseline Cr around 1.6-2.0 as pe outpatient r chart review. Avoid nephrotoxic agents when able. Monitor renal function closely Creatinine at baseline Left lung base pulmonary nodule Incidental finding on CT Follow-up as outpatient (6) Hypertension: Continue home medications propranolol, tamsulosin Also started on Amlodipine 5mg daily for better BP control Monitor blood pressure Other Chronic Medical Conditions: Evans's Esophagus/GERD - Continue PPI FAHAD/Depression - Continue Wellbutrin, Remeron. BPH with LUTS - Continue Flomax, Proscar Prediabetes - Hgb A1c 5.6% 1 month ago H/O Migraines - [facility] DVT Px: SQ Heparin Code Status: Full Code Disposition Home Total Time Total Time Spent Total Time Spent (In Minutes): 45 minutes Discharge Plan Discharge Items Patient Disposition: Home - Self-Care Reason For Visit: FEVERS, POSSIBLE UTI Discharge Diagnosis: Sepsis Complicated urinary tract infection Immunocompromise state Renal cancer Urinary retention Hypertension Condition on Discharge: Fair Activity: Per Instructions section Exercise/Sports: Gradually increase as tolerated Non-emergency contact: Primary Care Provider and Urologist Call non-emergency contact if: you have any medication questions, your symptoms worsen, your pain is concerning for you and you have a fever Follow-up/Referrals: Henrik Campbell DO [Primary Care Provider] - (Date & Time 01/14/2025 2:20 PM Provider: Henrik Campbell DO [facility] ) Diet: Heart Healthy Addtl Attending Provider Instructions: Follow-up with your primary care physician Dr. Henrik Campbell in 1 week Follow-up with your urologist Dr. Edwards in 1 to 2 weeks Follow-up with your oncologist as recommended - Continue Marlow catheter for 1 week and follow-up with urologist for voiding trial and further recommendations as outpatient -Complete the antibiotic course as prescribed. -You are incidentally noted to have left lung nodule on CT scan. Follow-up with your senior sql server developer as recommended. -- Monitor blood pressure regularly at home. You are started on amlodipine for better control of your blood pressure. Discuss with your primary care physician for further adjustment of medications as needed. Seek immediate medical attention if your symptoms reoccur or worsen Please review medication list provided on discharge for any medication changes as instructed. Please call if you have any questions or problems. You can reach a [facility] hospitalist on duty at [facility] 24 hours a day by calling [phone] Pending Studies at Discharge: Yes Studies:: Blood cultures Stand-Alone Forms: My [facility], Smoking Cessation Medications and DC Order Prescriptions: New amlodipine [Norvasc] 5 mg Tablet 5 mg PO QAM Qty: 30 0RF amoxicillin 875 mg Tablet 875 mg PO BID Qty: 7 0RF Advanced Probiotic 625 mg (10 billion cell) Capsule 1 cap PO DAILY Qty: 10 0RF Continued (DME) [facility] See Rx Instructions .MEDSUPPLY Qty: 1 0RF Rx Instructions: As directed (DME) [facility] See Rx Instructions .MEDSUPPLY Qty: 1 0RF Rx Instructions: As directed cyanocobalamin (vitamin B-12) [Vitamin B-12] 1,000 mcg Tablet 1,000 mcg PO DAILY fluticasone propionate [Flonase Allergy Relief] 50 mcg/actuation [place],Suspension 1 spray INTRANASAL DAILY PRN (Reason: SINUS CONGESTION) finasteride 5 mg tablet 5 mg PO QAM propranolol 10 mg tablet 40 mg PO BID Rx Instructions: TAKE AT 6AM AND 2PM lorazepam 0.5 mg Tablet 0.25 mg PO HS tamsulosin 0.4 mg capsule 0.4 mg PO QAM albuterol sulfate 90 mcg/actuation HFA aerosol inhaler 90 mcg INHALATION QID PRN (Reason: sob) bupropion HCl 100 mg Tablet 50 mg PO BID Rx Instructions: half tab daily mirtazapine 15 mg Tablet 15 mg PO HS metaxalone 800 mg Tablet 800 mg PO QPM metaxalone 800 mg Tablet 400 - 800 mg PO BID PRN (Reason: Pain) Rx Instructions: 1/2 to one tablet up to two times daily, as needed, for head and neck pain. rimegepant 75 mg Tablet,Disintegrating 75 mg PO Q2D PRN (Reason: .head and neck pain) metoclopramide HCl 10 mg Tablet 10 mg PO Q6H PRN (Reason: Nausea) meclizine 25 mg Tablet 25 mg PO TID PRN (Reason: Dizziness) budesonide 32 mcg/actuation [place],Non-Aerosol 1 spray INTRANASAL QAM PRN (Reason: Other) triamcinolone acetonide 0.1 % Ointment 1 applic TOPICAL BID PRN (Reason: Skin Irritation) sennosides [Senokot] 8.6 mg Tablet 8.6 mg PO DAILY PRN (Reason: Constipation) lidocaine-prilocaine 2.5-2.5 % cream 1 applic topical DIRECTED PRN (Reason: Other) esomeprazole magnesium 40 mg capsule,delayed release(DR/EC) 40 mg PO QAM polyethylene glycol 3350 [Miralax] 17 gram/dose Powder 17 g PO DAILY PRN (Reason: Constipation) Discontinued nitrofurantoin monohyd/m-cryst 100 mg capsule 100 mg PO BID Discharge Orders: Discharge Order (Routine); Ordered 01/08/25 Ordered By: Anselmo Miranda/Other Patient Handouts: Indwelling Urinary Catheter Dc, Leg Bag Care Dc, Marlow Catheter Male Admission Data Admit Date/Time: 01/05/25 11:32 Attending Provider: Anselmo Caballero Admit Provider: Janel Faith I. Primary Care Provider: Henrik Campbell Other Providers: Janel Faith I.; Donavan Ortega; Reyna Abebe; Gaurav Marin; Hannah Burch; Dino He; Heather Adam; Corinne Juarez; Otis Morgan
== END 2025-01-08 14:00 | disposition home or self-care (01) | DRG 872 ==
LOC: ED 06:33 → SUATTDRO 11:32 → 2S 11:32